=== PATIENT | female | born 1945 | race Caucasian/White ===

== ENCOUNTER 2023-10-15 16:50 | Inpatient (IN) | payer MEDICARE, SELFPAY ==
[2023-10-15 16:51] VITALS: BP 153/64; PULSE 82; RESP 16; TEMP 36.7; O2SAT 97; BMI 49.6
--- NOTE | 2023-10-15 17:08 | US_ITS ---
STUDY: ABDOMINAL ULTRASOUND - RIGHT UPPER QUADRANT REASON FOR VISIT: Female, 78 years old PAIN TECHNIQUE: Ultrasound evaluation of the right upper quadrant was performed with real-time and static loyola-scale imaging. TECHNICAL QUALITY: Limited. Examination limited by bowel gas. COMPARISON: None. FINDINGS: Liver: The liver measures 21.8 cm. There is increased echogenicity consistent with fatty infiltration. The bile ducts are within normal limits. There is hepatic color flow. The direction of portal flow is hepatopetal. There is no demonstrated mass lesion. Gallbladder: There is a markedly distended gallbladder. The gallbladder wall measures 5.1 mm. There is a positive sonographic Canela''s sign. There is no pericholecystic fluid. There is a solitary echogenic gallstone within the gallbladder. Common Bile Duct (C.B.D.): The common bile duct measures 5.0 mm. Pancreas: Normal size of the head and body with obscuration of the tail of the pancreas. There is normal echogenicity of the generalized pancreas. There is no demonstrated pancreatic mass or cyst in the visualized portion. Right Kidney: Normal size of the right kidney. The right kidney measures 12.3 x 6.5 x 5.2 cm. Normal renal cortex. The right cortex measures 1.4 cm. There is no demonstrated renal mass or cyst. There is no right hydronephrosis. US/Gallbladder IMPRESSION: Solitary gallstone with contracted gallbladder and thickening of the wall. Positive Canela sign. Acute cholecystitis cannot be excluded. If this represents a clinical concern, recommend follow-up with HIDA scan. Diffuse fatty liver, remainder of the right upper quadrant ultrasound unremarkable. Electronically Signed: Tracy Shearer MD at 19:54 EST ,
--- NOTE | 2023-10-15 17:09 | ED.VIS.GI ---
HPI HPI - GI History of Present Illness Chief Complaint: Fall Informant: patient and family Narrative Narrative: 5 days ago patient had an episode of lower midsternal chest discomfort with nausea that did not radiate anywhere or make her dyspneic that occurred an hour or so after eating homemade shrimp Jesus. She states the next day the pain was gone she felt she did not need to go to the ER because it did not radiate . Last night after eating a doughnut, some cookies, and a submarine sandwich, she had another episode of this discomfort, and overnight she got out of bed use the bathroom but fell to the floor because her legs were feeling weak and she was unable to get up partially because her legs were stuck underneath the bed, she denies injuring herself but was not able to get up and come here until her daughter came to get her and help, upon which her daughter noticed that she was jaundiced which is new. No history of any abdominal surgeries. She is not having pain right now. No fevers that she knows of. Generalized weakness started overnight. PFSH PFS Medical History Allergic rhinitis Anxiety and depression CKD (chronic kidney disease) Hyperlipidemia Hypertension Hypothyroidism Morbid obesity Type 2 diabetes mellitus Home Medications aspirin 81 mg tablet,delayed release (Adult Aspirin Regimen) 81 mg PO DAILY Blood thinner 10/15/23 [History Last Taken Unknown] atorvastatin 20 mg tablet 20 mg PO DAILY cholesterol 10/15/23 [History Last Taken Unknown] carvedilol 25 mg tablet 25 mg PO Q12H Blood pres 10/15/23 [History Last Taken Unknown] cetirizine 10 mg tablet 10 mg PO DAILY Allergies 10/15/23 [History Last Taken Unknown] cholestyramine-aspartame 4 gram oral powder for susp in a packet (Cholestyramine Light) 1 ea PO DAILY cholesterol 10/15/23 [History Last Taken Unknown] empagliflozin 25 mg tablet (Jardiance) 25 mg PO DAILY Glucose control 10/15/23 [History Last Taken Unknown] ergocalciferol (vitamin D2) 1,250 mcg (50,000 unit) capsule 1,250 mcg PO DAILY Vit D 10/15/23 [History Last Taken Unknown] escitalopram oxalate 20 mg tablet 20 mg PO DAILY Anxiety 10/15/23 [History Last Taken Unknown] fenofibrate nanocrystallized 145 mg tablet 145 mg PO DAILY cholesterol 10/15/23 [History Last Taken Unknown] levothyroxine 50 mcg tablet 50 mcg PO DAILY thyroid 10/15/23 [History Last Taken Unknown] mirabegron 25 mg tablet,extended release 24 hr (Myrbetriq) 25 mg PO Q24H Bladder 10/15/23 [History Last Taken Unknown] montelukast 10 mg tablet 10 mg PO DAILY Wheezing 10/15/23 [History Last Taken Unknown] niacin 1,000 mg tablet,extended release 24 hr 1,000 mg PO DAILY cholesterol 10/15/23 [History Last Taken Unknown] oxybutynin chloride 10 mg tablet,extended release 24 hr 10 mg PO DAILY Bladder 10/15/23 [History Last Taken Unknown] sitagliptin phosphate 50 mg-metformin 1,000 mg tablet (Janumet) 1 tab PO DAILY Glucose 10/15/23 [History Last Taken Unknown] Allergy/AdvReac Type Severity Reaction Status Date / Time No Known Allergies Allergy Verified 10/15/23 17:26 Family History (Updated 10/15/23 @ 20:[address] Enma Otoole MD) Mother Cancer Diabetes Father Heart disease Surgical History S/P left knee arthroscopy Social History (Updated 10/15/23 @ 20:[address] Enma Otoole MD) household members: none Smoking Status: Former smoker how long ago did patient quit smoking: Smoked age 22-until 30 years old, 1 ppd until quit. alcohol intake: never substance use type: does not use ROS ROS ED Constitutional Constitutional ED: Reports weakness; Denies chills or fever(s) Eyes Eyes: Denies change in vision or diplopia ENT ENT ED: Denies rhinorrhea or sore throat Cardiovascular Cardiovascular: Reports chest pain; Denies palpitations Respiratory/Chest Respiratory/Chest: Denies cough or dyspnea Gastrointestinal Gastrointestinal: Reports diarrhea, nausea and vomiting; Denies abdominal pain, hematemesis, hematochezia or melena Genitourinary Genitourinary ED: Denies dysuria or hematuria Musculoskeletal Musculoskeletal: Denies back pain or neck pain Integumentary Denies abscess or rash Neurologic Neurologic: Denies headache(s), paresthesias or weakness Psychiatric Psychiatric: Denies anxiety or suicidal thoughts EXAM Physical Exam Const Vital Signs: 10/15/23 16:51 10/15/23 17:07 10/15/23 20:00 Temperature 98.1 F 97.8 F Temperature Source Temporal Oral Pulse Rate 82 64 Respiratory Rate 16 16 Respiratory Effort Normal Respiratory Depth Normal Respiratory Pattern Normal Blood Pressure 153/64 H 128/68 H Blood Pressure Mean 93 88 Pulse Ox 97 97 Oxygen Delivery Method Room Air Room Air Room Air Positive well nourished, well developed and obese General Appearance ED: well developed and NAD Nutritional Appearance: obese HEENT Reports moist mucous membranes normocephalic and atraumatic Eyes PERRL and EOMs intact bilaterally General Eye ED: Yes scleral icterus Neck full ROM and supple Resp normal respiratory effort and clear to auscultation bilaterally Cardio regular rate, regular rhythm and no murmurs GI non-distended GI Narrative: Tender right upper quadrant. Otherwise benign abdomen. No guarding or rebound. Positive Canela. Auscultation: normoactive bowel sounds Palpation: soft Back/Spine no CVA tenderness General Back: other FROM Extremity normal to inspection General Extremety ED: Negative for edema, pulses abnormal or tenderness General Extremity: Negative for edema or pulses abnormal Neuro oriented x3, CN's II-XII intact bilaterally and no sensory deficits noted Sensorium / Orientation: awake and alert Motor Exam: strength 5/5 throughout Skin no rashes or lesions noted and no wounds General Skin Exam: jaundice MDM MDM MDM Narrative Medical decision making narrative: Given the patient is jaundiced my suspicion is that she has been having biliary colic and has stones and potentially biliary obstruction. I think this is less likely to be cardiac under the circumstances but obtained an EKG and a troponin in addition to a biliary workup with an ultrasound. EKG and troponin unremarkable, liver enzymes elevated along with total bilirubin extremely elevated at 12.5, as well as a leukocytosis of 20.1. I reviewed the images of the ultrasound and report which I agree with, consistent with acute cholecystitis with a large gallstone stuck. No other abnormalities in the liver on the ultrasound. Lipase is just barely elevated at 93. No urinary symptoms but the urinalysis shows pyuria so this was sent for culture. She was empirically given a dose of Zosyn and I discussed with GI and surgery. Surgery requested a CT scan with oral contrast since we are avoiding the IV contrast given her renal function, this was done, still waiting on the read, hospitalist aware this is being performed, but will admit in the meantime. Patient stable for admission to regular floor bed at this time. History & Record Review Additional record(s) reviewed:: No prior records Lab Data Attestation: I reviewed the patient's lab results. Labs: Laboratory Results - last 24 hr 10/15/23 10/15/23 17:20 19:34 WBC 20.1 H RBC 4.09 L Hgb 13.0 Hct 37.4 MCV 91.4 MCH 31.8 MCHC 34.8 RDW Std Deviation 48.5 H RDW Coeff of Jeff 14.3 Plt Count 128 L MPV 9.9 Immature Gran % (Auto) 0.800 Neut % (Auto) 83.6 H Lymph % (Auto) 5.3 L [place] % (Auto) 6.0 Eos % (Auto) 3.9 Baso % (Auto) 0.4 Absolute Neuts (auto) 16.8 H Absolute Lymphs (auto) 1.07 Nucleated RBC % 0 Sodium 129 L Potassium 3.3 L Chloride 97 L Carbon Dioxide 20.0 L Anion Gap 12 BUN 33 H Creatinine 1.43 H Estim Creat Clear Calc 45.05 Est GFR (MDRD) Af Amer 46 L Est GFR (MDRD) Non-Af 38 L BUN/Creatinine Ratio 23.1 H Glucose 158 H Calcium 9.3 Magnesium 1.4 L Total Bilirubin 12.50 H AST 209 H ALT 257 H Alkaline Phosphatase 306 H Troponin I High Sens 21 Total Protein 6.9 Albumin 2.7 L Globulin 4.2 Albumin/Globulin Ratio 0.6 L Lipase 93 H Urine Color Yellow Urine Clarity Clear Urine pH 6.5 Ur Specific [place] 1.005 Urine Protein 15 H Urine Glucose (UA) 1000 H Urine Ketones Negative Urine Occult Blood 10 H Urine Nitrite Negative Urine Bilirubin Negative Urine Urobilinogen Normal Ur Leukocyte Esterase 500 H Urine RBC 0 SEEN Urine WBC 10-25 SEEN Ur Squamous Epith Cells 0-5 SEEN Urine Bacteria RARE Urine Mucus 0 SEEN Radiography Diagnostic Testing: Clinical Impression(s) from Imaging Studies Gallbladder Ultrasound 10/15/23 17:08 IMPRESSION: Solitary gallstone with contracted gallbladder and thickening of the wall. Positive Canela sign. Acute cholecystitis cannot be excluded. If this represents a clinical concern, recommend follow-up with HIDA scan. Diffuse fatty liver, remainder of the right upper quadrant ultrasound unremarkable. Electronically Signed: Tracy Shearer MD at 19:54 EST , Rhythm Strip Rhythm Strip: Sinus Rhythm Rate: 80 Ectopy: None EKG Initial EKG: Attestation: I personally reviewed and interpreted this EKG as follows: Interpretation: Sinus Rhythm and No Acute Injury Pattern Prior: No Prior Management Discussion w/another healthcare provider: Hospitalist and Sample Supervisor (Friend (GI), Kirill (surg)) Discharge Plan Dx/Rx/DC Orders Clinical Impression: Elevated liver enzymes, Acute calculous cholecystitis, Acquired hyperbilirubinemia Disposition Disposition: Acute Care Hospital [facility] Discharge Date/Time: 10/15/23 21:21
[2023-10-15] MEDS: 0.9% Normal Saline (1000mL) 1,000 ML 125 ML IV ×2 (17:23→23:03)
[2023-10-15] MEDS: Ondansetron 4 MG/2 ML Vial IV (17:23)
[2023-10-15 17:34] LABS: Absolute Lymphocyte Count 1.07 X10^3/uL (0.83-4.51); Absolute Neutrophil Count 16.8 X10^3/uL (2.0-7.7); Basophil# 0.08 X10^3/uL; Basophil% 0.4 % (0-1); Eosinophil# 0.79 X10^3/uL; Eosinophils% 3.9 % (0-5); Hematocrit 37.4 % (37-47); Lymphocyte # 1.07 X10^3/ul (0.83-4.51); Lymphocyte % 5.3 % (19-41); Mean Corp Hgb Conc 34.8 g/dL (32-36); Mean Corpuscular Hgb 31.8 pg (27.0-32.0); Mean Corpuscular Volume 91.4 fL (81-99); Mean Platelet Vol. 9.9 fl (6.2-12.0); Monocyte# 1.21 X10^3/uL; NRBC Flagged by Analyzer 0 % (0-5); Neutrophil # 16.81 X10^3/uL (2.7-7.7); Neutrophil % 83.6 % (47-70); Platelet Count 128 K/mm3 (150-450); RBC Distribution Width CV 14.3 % (11.6-14.6); RBC Distribution Width SD 48.5 fl (35.1-43.9); Red Blood Count 4.09 M/mm3 (4.2-5.4); White Blood Count 20.1 K/mm3 (4.4-11.0)
[2023-10-15 17:51] LABS: ALB/GLOB Ratio 0.6 RATIO (0.9-2.4); AST(SGOT) 209 U/L (15-37); Alanine Aminotransfer ALT/SGPT 257 U/L (13-56); Albumin, Serum 2.7 g/dL (3.2-5.0); Alkaline Phosphatase 306 U/L (45-117); Anion Gap 12 (5-15); BUN 33 mg/dL (7-18); BUN/Creat Ratio 23.1 RATIO (10-20); Calcium,Total 9.3 mg/dL (8.5-10.1); Chloride 97 mmol/L (98-107); Creatinine, Serum 1.43 mg/dL (0.55-1.02); EST Glomerular Filtration Rate 38 mL/min (>60); Est Glom Filt Rate - Afr Amer 46 mL/min (>60); Estimated Creatinine Clearance 45.05 ml/min; Globulin 4.2 g/dL (2.2-4.2); Glucose 158 mg/dL (74-106); Lipase 93 U/L (13-75); Potassium 3.3 mmol/L (3.5-5.1); Protein, Total 6.9 g/dL (6.4-8.2); Sodium Level 129 mmol/L (136-145); Troponin-I HS 21 pg/mL (3.0-54.0)
--- NOTE | 2023-10-15 18:49 | EKG12_ITS ---
Test Reason : ABDOMINAL PAIN Blood Pressure : / mmHG Vent. Rate : 079 BPM Atrial Rate : 079 BPM P-R Int : 174 ms QRS Dur : 088 ms QT Int : 422 ms P-R-T Axes : 046 -17 010 degrees QTc Int : 483 ms Normal sinus rhythm Minimal voltage criteria for LVH, may be normal variant ( R in aVL ) Borderline ECG Confirmed by MAXI ROSA, STEVE ([id number]), assistant film editor AKUA LIZAMA ([id number]) on 10/17/2023 1:56:11 PM Referred By: BB Confirmed By:STEVE GERMAN MD
[2023-10-15] MEDS: Piperacil/Tazobactam 3.375 GM in 0.9% Normal Saline (50mL MB+) 50 ML IV (19:31)
[2023-10-15 19:39] LABS: Mucous, Urine 0 SEEN /hpf (<or=2+); Red Blood Cells-Urine 0 SEEN /hpf (0-5)
[2023-10-15 19:44] LABS: Color, Urine Yellow (Yellow); Glucose, Dipstick 1000 mg/dl (Normal); Ketone-Dipstick Negative (Negative); Leukocyte Esterase-Dipstick 500 /ul (Negative); Nitrite-Dipstick Negative (Negative); Occult Blood-Urine 10 /ul (Negative); Protein-Dipstick 15 mg/dl (Negative); Specific Gravity, Urine 1.005 (1.002-1.030); Urine Bilirubin Dipstick Negative (Negative); Urine Clarity Clear (Clear); Urine Urobilinogen Normal (Normal); Urine pH 6.5 (5.0 - 8.0)
[2023-10-15 19:55] LABS: White Blood Cells 10-25 SEEN /hpf (0-5)
[2023-10-15 19:56] LABS: Bacteria RARE /hpf (None Seen); Squamous Epithelial Cells - UA 0-5 SEEN /hpf (5-10)
[2023-10-15 20:00] VITALS: BP 128/68; PULSE 64; RESP 16; TEMP 36.6; O2SAT 97
--- NOTE | 2023-10-15 20:06 | HP.PCM.HOS_ITS ---
HPI - General General Date of Admission: 10/15/23 Date of Service: 10/15/23 Chief Complaint: Abdominal pain, nausea. 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: Morbid obesity, HTN, HLD, Diabetes mellitus type II, Former tobacco use who presents to the [facility] ED on 10/15/23 with history of episode of lower midsternal chest discomfort with nausea with no radiation that occurred approximately 5 days prior following eating a heavy meal shrimp Jesus with resolution of discomfort the next day however again the evening prior to current presentation she was noted to have eaten a large sandwich as well as some cookies and donuts and had a similar episode of discomfort and eventually overnight while attempting to get up to use the restroom she felt incredibly weak and fatigued unfortunately falling with her leg stuck underneath the bed but could not get up until her daughter was able to help her and upon helping her she noted that her skin was yellowed prompting ED evaluation. Patient denies any current pain in her right upper quadrant or epigastric region at this time. She currently notes the discomfort to her right upper quadrant and epigastric region is primary with palpation and rates it 5-6 out of 10 in severity or dull aching but with palpation sharp and can increase up to 8-9 out of 10 in severity. Workup in the ED included T98.1, heart rate 82, BP 153/64, respiratory rate 16, 97% on room air, CBC with WBC 20.1, hemoglobin 13, platelet 128 with left shift, CMP with sodium 129, potassium 3.3 noted to be slightly hemolyzed thus may be falsely increased, chloride 97, carbon oxide 20, BUN/creatinine 32/1.43, GFR 38, glucose 158, T. bili 12.50, AST/ALT 209/257, alk phos 306, troponin 21, lipase 93, gallbladder ultrasound with solitary gallstone with contracted gallbladder and thickening of the wall, positive Canela sign, acute cholecystitis cannot be excluded. In the ED patient ministered maintenance IV fluid, Zosyn as well as Zofran 4 mg IV x 1. [facility] Medical History (Updated 10/15/23 @ 20:[address] Enma Otoole MD) Allergic rhinitis Anxiety and depression CKD (chronic kidney disease) Hyperlipidemia Hypertension Hypothyroidism Morbid obesity Type 2 diabetes mellitus Home Medications atorvastatin 20 mg tablet mg 10/15/23 [History Last Taken Unknown] carvedilol 25 mg tablet mg 10/15/23 [History Last Taken Unknown] cetirizine 10 mg tablet mg 10/15/23 [History Last Taken Unknown] cholestyramine-aspartame 4 gram oral powder for susp in a packet (Cholestyramine Light) ea 10/15/23 [History Last Taken Unknown] empagliflozin 25 mg tablet (Jardiance) mg 10/15/23 [History Last Taken Unknown] ergocalciferol (vitamin D2) 1,250 mcg (50,000 unit) capsule 10/15/23 [History Last Taken Unknown] escitalopram oxalate 20 mg tablet mg 10/15/23 [History Last Taken Unknown] fenofibrate nanocrystallized 145 mg tablet mg PO 10/15/23 [History Last Taken Unknown] levothyroxine 50 mcg tablet mcg 10/15/23 [History Last Taken Unknown] mirabegron 25 mg tablet,extended release 24 hr (Myrbetriq) mg PO 10/15/23 [History Last Taken Unknown] montelukast 10 mg tablet mg 10/15/23 [History Last Taken Unknown] niacin 1,000 mg tablet,extended release 24 hr mg PO 10/15/23 [History Last Taken Unknown] oxybutynin chloride 10 mg tablet,extended release 24 hr mg PO 10/15/23 [History Last Taken Unknown] sitagliptin phosphate 50 mg-metformin 1,000 mg tablet (Janumet) tab 10/15/23 [History Last Taken Unknown] Allergy/AdvReac Type Severity Reaction Status Date / Time No Known Allergies Allergy Verified 10/15/23 17:26 Family History (Updated 10/15/23 @ 20:[address] Enma Otoole MD) Mother Cancer Diabetes Father Heart disease Surgical History (Updated 10/15/23 @ 20:[address] Enma Otoole MD) S/P left knee arthroscopy Social History (Updated 10/15/23 @ 20:[address] Enma Otoole MD) household members: none Smoking Status: Former smoker how long ago did patient quit smoking: Smoked age 22-until 30 years old, 1 ppd until quit. alcohol intake: never substance use type: does not use ROS ROS Narrative Admission Review of Systems: CONSTITUTIONAL: No weight loss, fever, chills, + weakness or fatigue. HEENT: + Scleral icterus. Eyes: No visual loss, blurred vision, double vision. Ears, Nose, Throat: No hearing loss, sneezing, congestion, runny nose or sore throat. SKIN: No rash or itching, lesions, wounds. + Jaundiced appearance. CARDIOVASCULAR: No chest pain, chest pressure or chest discomfort, palpitations, edema, orthopnea, syncopal events. RESPIRATORY: No shortness of breath, cough or sputum, wheezing, hemoptysis. GASTROINTESTINAL: + anorexia, nausea without vomiting, abdominal pain. No diarrhea, melena, BRBPR. GENITOURINARY: No dysuria, frequency, urgency or retention. NEUROLOGICAL: No headache, dizziness, syncope, paralysis, ataxia, numbness or tingling in the extremities, focal weakness, change in bowel or bladder control, seizure. MUSCULOSKELETAL: + muscle, back pain, joint pain or stiffness. HEMATOLOGIC: No anemia, bleeding or bruising. LYMPHATICS: No enlarged nodes. No history of splenectomy. PSYCHIATRIC: + History of anxiety and depression. ENDOCRINOLOGIC: No reports of sweating, cold or heat intolerance. No polyuria or polydipsia. ALLERGIES: + History of allergic rhinitis. Vital Signs Vital Signs Vital Signs: 10/15/23 16:51 10/15/23 17:07 Temperature 98.1 F Temperature Source Temporal Pulse Rate 82 Respiratory Rate 16 Respiratory Effort Normal Respiratory Depth Normal Respiratory Pattern Normal Blood Pressure 153/64 H Blood Pressure Mean 93 Pulse Ox 97 Oxygen Delivery Method Room Air Room Air Weight Weight: 289 lb Body Mass Index (BMI) 49.6 Physical Exam Narrative Physical Examination: General: Awake, alert, oriented x 3 and cooperative, seated upright in the ED bed in no apparent distress, fatigued appearance, notes pain currently controlled, jaundiced. Skin: Jaundiced color with scleral icterus present, normal turgor, no cyanosis. HEENT: AT/NC, EOMI, PERRLA, dry MM, no carotid bruits, difficult to assess JVD given thickened neck. Lungs: CTA bilaterally, moderate effort, mild decrease BL bases, no rales, ronchi or wheezing. Heart: Regular rate and rhythm; no gallop, rub audible. Abdomen: Soft, morbidly obese, tenderness to palpation in the epigastric and right upper quadrant with rebound, mildly hyperactive BS, difficult to discern distention and HSM given pain with evaluation and habitus. Extremities: No cyanosis, clubbing, or edema. Neurological: Patient awake, alert, oriented as noted, cognitive function intact; pupils equally reactive to light and accommodation, cranial nerves II- XII grossly normal, moving all 4 extremities, no focal deficits, strength moderately to severely globally decreased secondary to acute presentation. Psychiatric: Affect appears fatigued, mildly uncomfortable, no acute evidence of depressive or anxiety feelings but does have underlying history. Results Lab / Micro Data 10/15/23 17:20 10/15/23 17:20 Labs: Laboratory Results - last 24 hr 10/15/23 17:20: WBC 20.1 H, RBC 4.09 L, Hgb 13.0, Hct 37.4, MCV 91.4, MCH 31.8, MCHC 34.8, RDW Std Deviation 48.5 H, RDW Coeff of Jeff 14.3, Plt Count 128 L, MPV 9.9, Immature Gran % (Auto) 0.800, Neut % (Auto) 83.6 H, Lymph % (Auto) 5.3 L, [place] % (Auto) 6.0, Eos % (Auto) 3.9, Baso % (Auto) 0.4, Absolute Neuts (auto) 16.8 H, Absolute Lymphs (auto) 1.07, Nucleated RBC % 0, Sodium 129 L, Potassium 3.3 L, Chloride 97 L, Carbon Dioxide 20.0 L, Anion Gap 12, BUN 33 H, Creatinine 1.43 H, Estim Creat Clear Calc 45.05, Est GFR (MDRD) Af Amer 46 L, Est GFR (MDRD) Non-Af 38 L, BUN/Creatinine Ratio 23.1 H, Glucose 158 H, Calcium 9.3, Total Bilirubin 12.50 H, AST 209 H, ALT 257 H, Alkaline Phosphatase 306 H, Troponin I High Sens 21, Total Protein 6.9, Albumin 2.7 L, Globulin 4.2, [place] min/Globulin Ratio 0.6 L, Lipase 93 H 10/15/23 19:34: Urine Color Yellow, Urine Clarity Clear, Urine pH 6.5, Ur Specific [place] 1.005, Urine Protein 15 H, Urine Glucose (UA) 1000 H, Urine Ketones Negative, Urine Occult Blood 10 H, Urine Nitrite Negative, Urine Bilirubin Negative, Urine Urobilinogen Normal, Ur Leukocyte Esterase 500 H, Urine RBC 0 SEEN, Urine WBC 10-25 SEEN, Ur Squamous Epith Cells 0-5 SEEN, Urine Bacteria RARE, Urine Mucus 0 SEEN Rhythm Strip Rhythm Strip: Sinus Rhythm Rate: 80 Ectopy: None Imagaing Radiology Impression Gallbladder Ultrasound 10/15/23 17:08 IMPRESSION: Solitary gallstone with contracted gallbladder and thickening of the wall. Positive Canela sign. Acute cholecystitis cannot be excluded. If this represents a clinical concern, recommend follow-up with HIDA scan. Diffuse fatty liver, remainder of the right upper quadrant ultrasound unremarkable. Electronically Signed: Tracy Shearer MD at 19:54 EST , Assessment & Plan Assessment/Plan (1) Acute calculous cholecystitis: PLAN: Plan The 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 78 y/o F w/ PMHx: Morbid obesity, HTN, HLD, Diabetes mellitus type II, Former tobacco use who presents to the [facility] ED on 10/15/23 with history of episode of lower midsternal chest discomfort with nausea with no radiation that occurred approximately 5 days prior following eating a heavy meal shrimp Jesus with resolution of discomfort the next day however again the evening prior to current presentation she was noted to have eaten a large sandwich as well as some cookies and donuts and had a similar episode of discomfort and eventually overnight while attempting to get up to use the restroom she felt incredibly weak and fatigued unfortunately falling with her leg stuck underneath the bed but could not get up until her daughter was able to help her and upon helping her she noted that her skin was yellowed prompting ED evaluation. #1. Acute cholecystitis with ? choledocholithiasis with notable jaundice with hyperbilirubinemia and transaminitis, abdominal pain: Will admit to MS, maintain on IVFs, NPO, PPI, IV/po pain control, trend CMP, maintain on IV Zosyn therapy, continue judicious IV fluids, continue General surgery and gastroenterology consultations. #2. Hyponatremia, acute, suspected hypovolemic, secondary to acute presentation as noted #1: Admission Na 129, Chl 97, will continue to judiciously hydrate and plan repeat CMP in AM. #3. Hypokalemia: Admission K+ 3.3, magnesium level requested, supplementation given, repeat level in AM. #4. CKD stage III unclear subtype versus Acute Renal Insufficiency versus DAYLIN, unable to determine as no prior renal function comparison: Admission BUN/creatinine 33/1.43, do suspect given underlying history of likely chronic kidney disease stage III however unable to absolutely say this and cannot say that patient has renal insufficiency or DAYLIN thus we will continue to hydrate and repeat CMP in AM which will help further elucidate patient baseline renal function. #5. Diabetes mellitus type II: Hold oral home regimen, NPO status given presentation as noted, q 6 hour accu checks w/ ISS. #6. Hypertension: Continue home regimen including Coreg 25 mg p.o. twice daily, Lasix 20 mg p.o. daily, PRN hydralazine. #7. Hyperlipidemia: Will hold statin and fenofibrate therapy given significant transaminitis and hyperbilirubinemia. #8. Allergic rhinitis: We will continue patient home cetirizine 10 mg p.o. every morning and montelukast 10 mg daily #9. Anxiety and depression: Given significant hyperbilirubinemia and transaminitis. Patient home escitalopram regimen. #10. Hypothyroidism: We will continue patient home levothyroxine 50 mcg daily #11. Morbid Obesity: Weight loss and lifestyle changes encouraged. #12. DVT prophylaxis: SCDs, hold chemoprophylaxis for operative intervention needs. #13. CODE status: Patient ELIJAH is her daughter Analy who is present and living will is currently in place. Discussed CODE status at length including dif ference between FULL code, DNR-CCA and DNR-CC status. Following discussions about the differences in these status, requested Full Code status. Advanced Care Planning Face to Face Time: 16 minutes. Charges/Coding Visit Charges Inpatient E&M: 54718 Init Hosp L3 Procedures Hospitalists Procedures: 20738 Advncd Care Plan 30 Min
--- NOTE | 2023-10-15 20:10 | CT_ITS ---
INDICATION: upper abd pain, n/v, hyperbilirubinemia EXAMINATION: CT Abdomen And Pelvis W/O Contrast Injection TECHNIQUE: Helically acquired images were obtained of the abdomen and pelvis with sagittal and coronal reconstructed images. Individualized dose optimization techniques were used for this CT. IV contrast dosage and agent: None. Oral contrast: Small amount of contrast seen in the distal small bowel and proximal colon. COMPARISON: Ultrasound from earlier same day. FINDINGS: VESSELS: No abdominal aortic aneurysm. LIVER: No intrahepatic or extrahepatic biliary duct dilation. GALLBLADDER: Gallstones within a contracted gallbladder. PANCREAS: No focal solid or cystic mass. No evidence of pancreatitis. SPLEEN: Normal. ADRENAL GLANDS: Normal. KIDNEYS AND URETERS: No urinary tract stone. No hydronephrosis or hydroureter. No significant asymmetric perinephric stranding. URINARY BLADDER: Unremarkable. BOWEL: Diverticulosis with no evidence of diverticulitis. Appendix appears normal. No evidence of bowel obstruction. REPRODUCTIVE ORGANS: Unremarkable. PERITONEUM: No intraabdominal free fluid or free air. LYMPH NODES: No pathologically enlarged mesenteric or retroperitoneal lymph nodes. ABDOMINAL WALL: No abdominal or pelvic wall hernia. BONES: No acute abnormality. LOWER CHEST: Visualized lung bases are unremarkable. CT/Abdomen/Pel W ORAL Cont Only IMPRESSION: No acute abnormality. Electronically Signed: Jhonatan Robledo DO at 23:05 EST ,
--- OUTSIDE RECORDS SUMMARY | 2023-10-15 20:32 | XMS RPT_ITS | CCD ---
Author Name Unknown Address [facility] [place] [address] Organization [facility] Care Team Providers Care Cleaning Matron Name Role Phone CADEN SAUCEDA (DAWN) Unavailable Unavailab CADEN Yoo (DAWN) Unavailable Unavailab MARISA Ahumada Referring Unavailable GISELA LIM Referring Unavailable MARISA BOWDEN Referring Unavailable MARISA BOWDEN Referring Unavailable Problems Active Problems Problem Classification Problem Date Documented Da te Episodic/Chronic Chronic kidney disease (1 source) Chronic kidney disease; Translations: [Chronic kidney disease (CKD) stage G3a/A1, moderately decreased glomerular filtration rate (GFR) between 45-59 mL/min/1.73 square meter and albuminuria creatinine ratio less than 30 mg/g (HCC)] Onset: 01-11-2023 Diabetes mellitus with complications (3 sources) Type 2 diabetes mellitus with diabetic neuropathy, unspecified; Translations: [Type 2 diabetes mellitus with diabetic chronic kidney disease] Onset: 01-11-2023 Chronic Disorders of lipid metabolism (2 sources) Hyperlipidemia, unspecified; Translations: [Mixed hyperlipidemia] Onset: 01-11-2023 Chronic Essential hypertension (2 sources) Essential (primary) hypertension; Translations: [Unspecified essential hypertension] Onset: 01-11-2023 Chronic Nutritional deficiencies (2 sources) Vitamin D deficiency, unspecified; Translations: [Vitamin D deficiency] Onset: 01-11-2023 Chronic Other ear and sense organ disorders (1 source) Conductive hearing loss, unilateral, left ear, with unrestricted hearing on the contralateral side; Translations: [Conductive hearing loss, unilateral, left ear, with unrestricted hearing on the contralateral side] Onset: 08-29-2017 Chronic Other gastrointestinal disorders (1 source) Diarrhea, unspecified; Translations: [Diarrhea of presumed infectious origin] Onset: 09-09-2023 Episodic Other inflammatory condition of skin (1 source) Arthropathic psoriasis, unspecified; Translations: [Psoriatic arthropathy (HCC)] Onset: 06-13-2023 Chronic Other inflammatory condition of skin (1 source) Psoriasis vulgaris; Translations: [Psoriasis vulgaris] Onset: 01-11-2023 Chronic Other lower respiratory disease (1 source) Dyspnea, unspecified; Translations: [Dyspnea, unspecified] Onset: 06-17-2023 Episodic Thyroid disorders (1 source) Hypothyroidism, unspecified; Translations: [Unspecified hypothyroidism] Onset: 06-13-2023 Chronic Past or Other Problems Problem Classification Problem Date Documented Da te Episodic/Chronic Unclassified (1 source) Encounter for screening for other disorder; Translations: [Encounter for screening for other disorder] Onset: 08-29-2017 Episodic Results Test Name Value Interpretation Reference Range Facil ity Encounters Encounter Date Encounter Type Care Provider Facility Start: 09-09-2023 End: 09-09-2023 ambulatory MARISA L DENNISE Facility:[id number] Start: 06-17-2023 End: 06-17-2023 ambulatory GISELA Sirena CARINA Facility:[id number] Start: 06-13-2023 End: 06-13-2023 ambulatory MARISA Bravo DENNISE Facility:[id number] Start: 01-11-2023 End: 01-12-2023 ambulatory MARISAALBERTO BOWDEN Facility:[id number] Start: 10-24-2017 End: 10-25-2017 [facility] Start: 08-29-2017 End: 09-02-2017 Ambulatory CADEN WETZEL) [facility] Payers Date Payer Category Payer Medicare [id number] Summary Purpose Family History No Family History Records FoundNo Family History Records FoundNo Family History Records Found Advance Directives No Advanced Directives Records FoundNo Advanced Directives Records FoundNo Advanced Directives Records Found Additional Source Comments INFORMATION SOURCE (unrecogn ized section and content) DATE CREATED AUTHOR AUTHOR'S ORGANIZ ATION 11/18/2021 [facility] [place] DATE CREATED AUTHOR AUTHOR'S ORGANIZ ATION [facility] FOR RECORDS PERTAINING TO PATIENTS WHO ARE OR HAVE BEEN ENROLLED IN A CHEMICAL DEPENDENCY/SUBSTANCEABUSE PROGRAM, SOME INFORMATION MAY BE OMITTED. This clinical summary was aggregated from multiple sources. Caution should be exercised in using it in the provision of clinical care. This summary normalizes information from multiple sources, and as a consequence, information in this document may materially change the coding, format and clinical context of patient data. In addition, data may be omitted in some cases. CLINICAL DECISIONS SHOULD BE BASED ON THE PRIMARY CLINICAL RECORDS. [employer] [facility]. provides no warranty or guarantee of the accuracy or completeness of information in this document.
[2023-10-15 20:54] LABS: Magnesium 1.4 mg/dL (1.6-2.6)
[2023-10-15 21:36] VITALS: BMI 45.7
[2023-10-15 21:51] VITALS: BP 131/67; PULSE 81; RESP 18; TEMP 36.7; O2SAT 95
[2023-10-15 22:00] VITALS: O2SAT 96
[2023-10-15] MEDS: Potassium Chloride Oral Tablet 20 MEQ 40 MEQ PO (23:01)
[2023-10-15] MEDS: Pantoprazole Sodium 40 MG in 0.9% Normal Saline (100mL MB+) 100 ML 330 MG IV (23:01)
[2023-10-15] MEDS: Carvedilol 25 MG Tablet PO (23:02)
[2023-10-15] MEDS: Montelukast 10 MG Tablet PO (23:03)
[2023-10-15 23:11] VITALS: O2SAT 96
[2023-10-15 23:35] LABS: Bedside Glucose 119 mg/dL (74-106)
[2023-10-16 03:24] VITALS: BMI 45.5
[2023-10-16] MEDS: Miconazole Nitrate 43 GM Bottle 1 APPLIC TOPICAL ×3 (06:24→21:48)
[2023-10-16] MEDS: Piperacil/Tazobactam 3.375 GM in 0.9% Normal Saline (50mL MB+) 50 ML IV ×3 (06:24→21:47)
[2023-10-16] MEDS: Levothyroxine 50 MCG Tablet PO (06:24)
[2023-10-16 06:32] VITALS: BP 131/63; PULSE 80; RESP 16; TEMP 36.9; O2SAT 96
[2023-10-16 06:47] LABS: Bedside Glucose 119 mg/dL (74-106)
[2023-10-16 07:02] LABS: Absolute Lymphocyte Count 1.13 X10^3/uL (0.83-4.51); Absolute Neutrophil Count 11.6 X10^3/uL (2.0-7.7); Basophil# 0.08 X10^3/uL; Basophil% 0.5 % (0-1); Hematocrit 35.9 % (37-47); Lymphocyte # 1.13 X10^3/ul (0.83-4.51); Lymphocyte % 7.6 % (19-41); Mean Corp Hgb Conc 33.4 g/dL (32-36); Mean Corpuscular Hgb 31.1 pg (27.0-32.0); Monocyte% 6.7 % (0-10); NRBC Flagged by Analyzer 0 % (0-5); Neutrophil # 11.57 X10^3/uL (2.7-7.7); Neutrophil % 77.9 % (47-70); Platelet Count 139 K/mm3 (150-450); RBC Distribution Width CV 14.6 % (11.6-14.6); RBC Distribution Width SD 49.7 fl (35.1-43.9); Red Blood Count 3.86 M/mm3 (4.2-5.4); White Blood Count 14.9 K/mm3 (4.4-11.0)
--- NOTE | 2023-10-16 07:36 | PN.HOSP_ITS ---
Reason for Visit Reason for Visit: Diagnoses Calculus of gallbladder with acute cholecystitis without obstruction (10/15/23) Subjective Subjective Patient is a 78-year-old lady admitted with abdominal pain gallbladder ultrasound obtained did show Solitary gallstone with contracted gallbladder and thickening of the wall. Positive Canela sign. Acute cholecystitis could not be excluded patient admitted to regular nursing floor with consultation placed to general surgery as well as GI Objective Data Objective Data Vital Signs: Vital Signs Temp Pulse Resp BP Pulse Ox O2 Del Method 98.5 F 80 16 131/63 H 96 Bi-pap 10/16/23 06:32 10/16/23 06:32 10/16/23 06:32 10/16/23 06:32 10/16/23 06:32 10/16/23 06:33 Oxygen Delivery Method Bi-pap Weight: 120.9 kg Body Mass Index (BMI) 45.5 Intake & Output: Intake and Output for Last 24 Hours 10/14/23 10/15/23 10/16/23 23:59 23:59 23:59 Intake Total 868.33 / 868.33 Balance 868.33 / 868.33 Lab / Micro Data 10/16/23 06:20 10/16/23 06:20 Labs: Laboratory Results - last 24 hr 10/15/23 17:20: WBC 20.1 H, RBC 4.09 L, Hgb 13.0, Hct 37.4, MCV 91.4, MCH 31.8, MCHC 34.8, RDW Std Deviation 48.5 H, RDW Coeff of Jeff 14.3, Plt Count 128 L, MPV 9.9, Immature Gran % (Auto) 0.800, Neut % (Auto) 83.6 H, Lymph % (Auto) 5.3 L, [place] % (Auto) 6.0, Eos % (Auto) 3.9, Baso % (Auto) 0.4, Absolute Neuts (auto) 16.8 H, Absolute Lymphs (auto) 1.07, Nucleated RBC % 0, Sodium 129 L, Potassium 3.3 L, Chloride 97 L, Carbon Dioxide 20.0 L, Anion Gap 12, BUN 33 H, Creatinine 1.43 H, Estim Creat Clear Calc 45.05, Est GFR (MDRD) Af Amer 46 L, Est GFR (MDRD) Non-Af 38 L, BUN/Creatinine Ratio 23.1 H, Glucose 158 H, Calcium 9.3, Magnesium 1.4 L, Total Bilirubin 12.50 H, AST 209 H, ALT 257 H, Alkaline Phosphatase 306 H, Troponin I High Sens 21, Total Protein 6.9, Albumin 2.7 L, Globulin 4.2, Albumin/Globulin Ratio 0.6 L, Lipase 93 H 10/15/23 19:34: Urine Color Yellow, Urine Clarity Clear, Urine pH 6.5, Ur Specific [place] 1.005, Urine Protein 15 H, Urine Glucose (UA) 1000 H, Urine Ketones Negative, Urine Occult Blood 10 H, Urine Nitrite Negative, Urine Bilirubin Negative, Urine Urobilinogen Normal, Ur Leukocyte Esterase 500 H, Urine RBC 0 SEEN, Urine WBC 10-25 SEEN, Ur Squamous Epith Cells 0-5 SEEN, Urine Bacteria RARE, Urine Mucus 0 SEEN 10/15/23 23:10: POC Glucose 119 H 10/16/23 06:20: WBC 14.9 H, RBC 3.86 L, Hgb 12.0, Hct 35.9 L, MCV 93.0, MCH 31.1, MCHC 33.4, RDW Std Deviation 49.7 H, RDW Coeff of Jeff 14.6, Plt Count 139 L, MPV 10.0, Immature Gran % (Auto) 1.300 H, Neut % (Auto) 77.9 H, Lymph % ( Auto) 7.6 L, [place] % (Auto) 6.7, Eos % (Auto) 6.0 H, Baso % (Auto) 0.5, Absolute Neuts (auto) 11.6 H, Absolute Lymphs (auto) 1.13, Nucleated RBC % 0 10/16/23 06:23: POC Glucose 119 H Radiography Diagnostic Testing: Radiology Impression Gallbladder Ultrasound 10/15/23 17:08 IMPRESSION: Solitary gallstone with contracted gallbladder and thickening of the wall. Positive Canela sign. Acute cholecystitis cannot be excluded. If this represents a clinical concern, recommend follow-up with HIDA scan. Diffuse fatty liver, remainder of the right upper quadrant ultrasound unremarkable. Electronically Signed: Tracy Shearer MD at 19:54 EST , Abdomen CT 10/15/23 20:10 IMPRESSION: No acute abnormality. Electronically Signed: Jhonatan Robledo DO at 23:05 EST , Rhythm Strip Rhythm Strip: Sinus Rhythm Rate: 80 Ectopy: None Physical Exam Narrative GENERAL: cooperative HEENT: Atraumatic; normocephalic EYES; Anicteric, Normal Conjunctiva NECK; supple, normal thyroid, RESPIRATORY: Diminished to auscultation CARDIOVASCULAR: Regular S1 S2, GI: Right upper quadrant abdominal tenderness : No Renal angle tenderness; EXTREMITIES: No edema, no clubbing, MUSCULOSKELETAL: no muscle wasting NEURO: Awake; no lateralizing signs. SKIN: No Rash PSYCH; Flat affect Assessment & Plan Assessment/Plan (1) Acute calculous cholecystitis: PLAN: Plan Patient is a 78-year-old lady admitted with abdominal pain gallbladder ultrasound obtained did show Solitary gallstone with contracted gallbladder and thickening of the wall. Positive Canela sign. Acute cholecystitis could not be excluded patient admitted to regular nursing floor with consultation placed to general surgery as well as GI 1. Right upper quadrant abdominal pain ?? Cholelithiasis with acute cholecystitis ? Patient admitted to regular nursing floor for symptom management as part of her evaluation consult was placed to general surgery as well as GI. Decision for patient to undergo HIDA scan deferred to general surgery. 2. Nonalcoholic fatty liver disease ? GI consulted 3. Diabetes mellitus type II -patient's oral hypoglycemics held. Placed on long acting insulin, Accu-Cheks a.c. and at bedtime and covered with sliding scale insulin 4. Dyslipidemia -Patient is on statin therapy as well as fenofibrate, continued at home dose 5. Class III obesity with BMI of 45.8 ? Complicating care weight loss advised 6. Hypothyroidism - Patient is on levothyroxine home dose continued 7. Hypertension - Blood pressure controlled, home medications continued with dose adjustment as needed 8. Overactive bladder ? Patient is on Myrbetriq as well as oxybutynin at home 9. Hypokalemia ? Corrected per protocol repeat labs ordered for monitoring next 10. Depression with anxiety ? Patient is on escitalopram did continue 11. Allergic rhinitis ? Patient is on cetirizine 12. DVT prophylaxis ? Bilateral SCDs and SC heparin Time spent in the patient's overall evaluation,decision-making process, review of diagnostic data, adjustment of management, discussion with other providers, nursing nursing and ancillary staff involved in patient's care documentation, 50 minutes Charges/Coding Visit Charges Inpatient E&M: 72529 Subs Hosp L3
[2023-10-16 08:00] VITALS: BP 146/70; PULSE 76; RESP 18; TEMP 36.4; O2SAT 95
--- NOTE | 2023-10-16 08:04 | EX.PCM.CON.S ---
Assessment & Plan Assessment/Plan (1) Acute calculous cholecystitis: (2) Acquired hyperbilirubinemia: (3) Elevated liver enzymes: PLAN: Plan Patient is a 78-year-old female who presents for acute onset abdominal pain with associated prodromal period of similar symptoms and some more subacute symptoms of fatigue and abnormal bowel movements. While she is markedly tender in the right upper quadrant over her gallbladder I find it unusual to have acute cholecystitis with such a high bilirubin. This is especially unusual given her nondilated common bile duct on either ultrasound or CT imaging. Although patient had a rather acute experience of pain, her reports of generally feeling unwell and this unusual presentation raise the possibility for potential more insidious etiology such as a neoplasm. It is also possible that her large gallbladder neck gallstone could be contributing Mirizzi?type compression of the common hepatic/common bile duct system, but the size of the stone is not terribly exceptional. Case has been discussed with with gastroenterology who is still yet to evaluate the patient. Preliminarily we are just discussing potential for MRCP. In the interim recommend n.p.o., IV fluids, empiric IV antibiotic coverage to mitigate patient's risk for cholangitis, and trending of her comprehensive metabolic panel. HPI Consult Data Date of Consult: 10/16/23 HPI Narrative Reason for Consultation: Concern for acute cholecystitis HPI Narrative: STEPHANIE MCKEON, is a 78 F who presented to [facility] after she had been found down at her home. Her daughter who accompanies her in her room provides much of the history. She shares that they celebrated patient's birthday on , 10/13/2021 and she states that patient was in good spirits overall feeling well at that time. They do share that they enjoyed vegetables, [employer], cookie cake, and donuts for their meal. Then approximately 2 AM the following morning patient reports she developed severe pain and tried to get out of bed but slid down to the floor. She was finally discovered by her daughter 30 hours later and brought in for further evaluation. Patient states that she was convinced this was noncardiac pain as although it was chest pain it felt worse with deep breathing. Patient's ER workup was notable for elevated liver function testing and markedly elevated bilirubin (greater than 12). Initially emergency medicine had performed only right upper quadrant ultrasound which showed a contracted gallbladder with a large gallstone in the gallbladder neck. There was some gallbladder wall thickening and radiology noted that cute cholecystitis could not be excluded. Upon noting patient's markedly elevated bilirubin and the otherwise limited information from her ultrasound I recommended performing CT of the abdomen pelvis with oral contrast (as patient had elevated creatinine on presentation). Patient and her daughter confirm that there is a prior episode of pain approximately 6 days ago after some [employer] for dinner. However, this was self-limited and patient seemed fine thereafter. They also confirmed that Mrs. Mckeon has been generally feeling poorly . By this they detail what to say that she has been more tired and has had a poor appetite. She is also noted some diarrhea. Her primary care provider ordered a stool assay and she was determined to be negative for C. difficile but positive for another infectious concern and was a started on antibiotics. She is also scheduled to see a ophthalmic tech but canceled on the account of her symptoms. Through this. If feeling poorly Mrs. Mckeon reports a weight loss of approximately 23 pounds. Patient medically has a history of hypertension, hyperlipidemia, morbid obesity, obstructive sleep apnea on CPAP, well-controlled diabetes (she states that her last A1c was 7) and chronic kidney disease stage III. She has not ever undergone a surgery. [facility] Medical History Allergic rhinitis Anxiety and depression CKD (chronic kidney disease) Hyperlipidemia Hypertension Hypothyroidism Morbid obesity Type 2 diabetes mellitus Home Medications aspirin 81 mg tablet,delayed release (Adult Aspirin Regimen) 81 mg PO DAILY Blood thinner 10/15/23 [History Last Taken Unknown] atorvastatin 20 mg tablet 20 mg PO DAILY cholesterol 10/15/23 [History Last Taken Unknown] carvedilol 25 mg tablet 25 mg PO Q12H Blood pres 10/15/23 [History Last Taken Unknown] cetirizine 10 mg tablet 10 mg PO DAILY Allergies 10/15/23 [History Last Taken Unknown] cholestyramine-aspartame 4 gram oral powder for susp in a packet (Cholestyramine Light) 1 ea PO DAILY cholesterol 10/15/23 [History Last Taken Unknown] empagliflozin 25 mg tablet (Jardiance) 25 mg PO DAILY Glucose control 10/15/23 [History Last Taken Unknown] ergocalciferol (vitamin D2) 1,250 mcg (50,000 unit) capsule 1,250 mcg PO DAILY Vit D 10/15/23 [History Last Taken Unknown] escitalopram oxalate 20 mg tablet 20 mg PO DAILY Anxiety 10/15/23 [History Last Taken Unknown] fenofibrate nanocrystallized 145 mg tablet 145 mg PO DAILY cholesterol 10/15/23 [History Last Taken Unknown] levothyroxine 50 mcg tablet 50 mcg PO DAILY thyroid 10/15/23 [History Last Taken Unknown] mirabegron 25 mg tablet,extended release 24 hr (Myrbetriq) 25 mg PO Q24H Bladder 10/15/23 [History Last Taken Unknown] montelukast 10 mg tablet 10 mg PO DAILY Wheezing 10/15/23 [History Last Taken Unknown] niacin 1,000 mg tablet,extended release 24 hr 1,000 mg PO DAILY cholesterol 10/15/23 [History Last Taken Unknown] oxybutynin chloride 10 mg tablet,extended release 24 hr 10 mg PO DAILY Bladder 10/15/23 [History Last Taken Unknown] sitagliptin phosphate 50 mg-metformin 1,000 mg tablet (Janumet) 1 tab PO DAILY Glucose 10/15/23 [History Last Taken Unknown] Allergy/AdvReac Type Severity Reaction Status Date / Time No Known Allergies Allergy Verified 10/15/23 17:26 Family History (Updated 10/15/23 @ 20:[address] Enma Otoole MD) Mother Cancer Diabetes Father Heart disease Surgical History S/P left knee arthroscopy Social History (Updated 10/15/23 @ 20:[address] Enma Otoole MD) household members: none Smoking Status: Former smoker how long ago did patient quit smoking: Smoked age 22-until 30 years old, 1 ppd until quit. alcohol intake: never substance use type: does not use Physical Exam Const alert, oriented x3 and well nourished Constitutional Narrative: Jaundiced General Appearance: cooperative Nutritional Appearance: obese morbidly obese GI GI Narrative: Morbidly obese, no scars, no visible hernia, nondistended, soft, tender to palpation right upper quadrant with mildly positive Canela sign Lab / Micro Data 10/16/23 06:20 10/16/23 06:20 Labs: Laboratory Results - last 24 hr 10/15/23 17:20: WBC 20.1 H, RBC 4.09 L, Hgb 13.0, Hct 37.4, MCV 91.4, MCH 31.8, MCHC 34.8, RDW Std Deviation 48.5 H, RDW Coeff of Jeff 14.3, Plt Count 128 L, MPV 9.9, Immature Gran % (Auto) 0.800, Neut % (Auto) 83.6 H, Lymph % (Auto) 5.3 L, [place] % (Auto) 6.0, Eos % (Auto) 3.9, Baso % (Auto) 0.4, Absolute Neuts (auto) 16.8 H, Absolute Lymphs (auto) 1.07, Nucleated RBC % 0, Sodium 129 L, Potassium 3.3 L, Chloride 97 L, Carbon Dioxide 20.0 L, Anion Gap 12, BUN 33 H, Creatinine 1.43 H, Estim Creat Clear Calc 45.05, Est GFR (MDRD) Af Amer 46 L, Est GFR (MDRD) Non-Af 38 L, BUN/Creatinine Ratio 23.1 H, Glucose 158 H, Calcium 9.3, Magnesium 1.4 L, Total Bilirubin 12.50 H, AST 209 H, ALT 257 H, Alkaline Phosphatase 306 H, Troponin I High Sens 21, Total Protein 6.9, Albumin 2.7 L, Globulin 4.2, Albumin/Globulin Ratio 0.6 L, Lipase 93 H 10/15/23 19:34: Urine Color Yellow, Urine Clarity Clear, Urine pH 6.5, Ur Specific [place] 1.005, Urine Protein 15 H, Urine Glucose (UA) 1000 H, Urine Ketones Negative, Urine Occult Blood 10 H, Urine Nitrite Negative, Urine Bilirubin Negative, Urine Urobilinogen Normal, Ur Leukocyte Esterase 500 H, Urine RBC 0 SEEN, Urine WBC 10-25 SEEN, Ur Squamous Epith Cells 0-5 SEEN, Urine Bacteria RARE, Urine Mucus 0 SEEN 10/15/23 23:10: POC Glucose 119 H 10/16/23 06:20: WBC 14.9 H, RBC 3.86 L, Hgb 12.0, Hct 35.9 L, MCV 93.0, MCH 31.1, MCHC 33.4, RDW Std Deviation 49.7 H, RDW Coeff of Jeff 14.6, Plt Count 139 L, MPV 10.0, Immature Gran % (Auto) 1.300 H, Neut % (Auto) 77.9 H, Lymph % (Auto) 7.6 L, [place] % (Auto) 6.7, Eos % (Auto) 6.0 H, Baso % (Auto) 0.5, Absolute Neuts (auto) 11.6 H, Absolute Lymphs (auto) 1.13, Nucleated RBC % 0 10/16/23 06:23: POC Glucose 119 H Rhythm Strip Rhythm Strip: Sinus Rhythm Rate: 80 Ectopy: None Imagaing Radiology Impression Gallbladder Ultrasound 10/15/23 17:08 IMPRESSION: Solitary gallstone with contracted gallbladder and thickening of the wall. Positive Canela sign. Acute cholecystitis cannot be excluded. If this represents a clinical concern, recommend follow-up with HIDA scan. Diffuse fatty liver, remainder of the right upper quadrant ultrasound unremarkable. Electronically Signed: Tracy Shearer MD at 19:54 EST , Abdomen CT 10/15/23 20:10 IMPRESSION: No acute abnormality. Electronically Signed: Jhonatan Robledo DO at 23:05 EST , Charges/Coding Visit Charges Inpatient E&M: 29964 Init Hosp L2
[2023-10-16] MEDS: 0.9% Normal Saline (1000mL) 1,000 ML 125 ML IV ×2 (08:06→16:45)
[2023-10-16] MEDS: Loratadine 10 MG Tablet PO (08:06)
[2023-10-16] MEDS: Carvedilol 25 MG Tablet PO ×2 (08:06→16:45)
[2023-10-16 08:15] VITALS: O2SAT 95
[2023-10-16 10:30] LABS: ALB/GLOB Ratio 0.7 RATIO (0.9-2.4); AST(SGOT) 249 U/L (15-37); Alanine Aminotransfer ALT/SGPT 265 U/L (13-56); Albumin, Serum 2.5 g/dL (3.2-5.0); Alkaline Phosphatase 349 U/L (45-117); Anion Gap 14 (5-15); BUN 30 mg/dL (7-18); BUN/Creat Ratio 24.2 RATIO (10-20); Calcium,Total 8.9 mg/dL (8.5-10.1); Chloride 105 mmol/L (98-107); Creatinine, Serum 1.24 mg/dL (0.55-1.02); EST Glomerular Filtration Rate 45 mL/min (>60); Est Glom Filt Rate - Afr Amer 54 mL/min (>60); Estimated Creatinine Clearance 49.46 ml/min; Globulin 3.8 g/dL (2.2-4.2); Glucose 115 mg/dL (74-106); Potassium 3.7 mmol/L (3.5-5.1); Protein, Total 6.3 g/dL (6.4-8.2); Sodium Level 137 mmol/L (136-145)
[2023-10-16 11:02] LABS: Thyroid Stim Hormone (TSH) 1.89 uIU/mL (0.358-3.74)
[2023-10-16] MEDS: Heparin Injection (Vial) 5,000 UNIT/ML VIAL 5000 UNIT SC (11:20)
[2023-10-16] MEDS: Pantoprazole Sodium 40 MG in 0.9% Normal Saline (100mL MB+) 100 ML 330 MG IV ×2 (11:20→21:38)
[2023-10-16 11:23] LABS: Hemoglobin A1c 6.7 % (3.8-5.6)
[2023-10-16 12:13] LABS: Bedside Glucose 125 mg/dL (74-106)
[2023-10-16] MEDS: Magnesium Sulfate 4gm/100mL 4 GM/100 ML IV.SOLN. IV (12:26)
[2023-10-16 15:30] VITALS: BP 126/61; PULSE 72; RESP 16; TEMP 36.6; O2SAT 96
[2023-10-16 17:05] LABS: Bedside Glucose 114 mg/dL (74-106)
[2023-10-16] MEDS: Montelukast 10 MG Tablet PO (21:47)
[2023-10-16 22:02] VITALS: BP 119/46; PULSE 78; RESP 18; TEMP 36.8; O2SAT 96
[2023-10-16 22:03] VITALS: O2SAT 96
[2023-10-16 22:18] LABS: Bedside Glucose 210 mg/dL (74-106)
[2023-10-17] VITALS (8 sets, daily range): BP systolic 135–153; BP diastolic 57–81; PULSE 61–81; RESP 16–18; TEMP 36.6–37.1; O2SAT 94–100; BMI 45.6
[2023-10-17] MEDS: 0.9% Normal Saline (1000mL) 1,000 ML 125 ML IV ×3 (06:15→22:47)
[2023-10-17] MEDS: Miconazole Nitrate 43 GM Bottle 1 APPLIC TOPICAL ×3 (06:15→22:51)
[2023-10-17] MEDS: Piperacil/Tazobactam 3.375 GM in 0.9% Normal Saline (50mL MB+) 50 ML IV ×3 (06:15→22:52)
[2023-10-17 06:40] LABS: Absolute Lymphocyte Count 1.03 X10^3/uL (0.83-4.51); Basophil# 0.04 X10^3/uL; Basophil% 0.5 % (0-1); Eosinophil# 0.78 X10^3/uL; Hemoglobin 11.7 g/dL (12.0-15.0); Lymphocyte # 1.03 X10^3/ul (0.83-4.51); Lymphocyte % 11.9 % (19-41); Mean Corp Hgb Conc 33.4 g/dL (32-36); Mean Corpuscular Hgb 31.3 pg (27.0-32.0); Mean Corpuscular Volume 93.6 fL (81-99); Mean Platelet Vol. 9.3 fl (6.2-12.0); Monocyte# 0.67 X10^3/uL; Monocyte% 7.7 % (0-10); NRBC Flagged by Analyzer 0 % (0-5); Neutrophil # 6.01 X10^3/uL (2.7-7.7); Neutrophil % 69.2 % (47-70); Platelet Count 145 K/mm3 (150-450); RBC Distribution Width CV 15.1 % (11.6-14.6); RBC Distribution Width SD 51.9 fl (35.1-43.9); Red Blood Count 3.74 M/mm3 (4.2-5.4); White Blood Count 8.7 K/mm3 (4.4-11.0)
[2023-10-17 06:49] LABS: Bedside Glucose 151 mg/dL (74-106)
[2023-10-17 07:05] LABS: ALB/GLOB Ratio 0.6 RATIO (0.9-2.4); AST(SGOT) 281 U/L (15-37); Alanine Aminotransfer ALT/SGPT 307 U/L (13-56); Albumin, Serum 2.4 g/dL (3.2-5.0); Alkaline Phosphatase 406 U/L (45-117); Anion Gap 8 (5-15); BUN 24 mg/dL (7-18); BUN/Creat Ratio 20.9 RATIO (10-20); Calcium,Total 8.9 mg/dL (8.5-10.1); Chloride 108 mmol/L (98-107); Creatinine, Serum 1.15 mg/dL (0.55-1.02); EST Glomerular Filtration Rate 49 mL/min (>60); Est Glom Filt Rate - Afr Amer 59 mL/min (>60); Estimated Creatinine Clearance 53.39 ml/min; Globulin 3.7 g/dL (2.2-4.2); Glucose 136 mg/dL (74-106); Magnesium 2.2 mg/dL (1.6-2.6); Phosphorus 3.4 mg/dL (2.5-4.9); Potassium 3.5 mmol/L (3.5-5.1); Protein, Total 6.1 g/dL (6.4-8.2); Sodium Level 137 mmol/L (136-145)
[2023-10-17] MEDS: LORazepam 1 MG Tablet PO (09:04)
--- NOTE | 2023-10-17 09:08 | PN.SURG_ITS ---
Subjective Subjective Patient seen and examined during AM rounds. She is found sitting out of bed in a chair. Her daughter is just assisted her with getting a shower. Jointly they state that she is imminently due down at the MRI. Mrs. Mckeon states that she is eager to go home and wants to have her surgery. She shares that her abdominal pain is improved. Objective Data Objective Data Vital Signs: Vital Signs Temp Pulse Resp BP Pulse Ox O2 Del Method 98.7 F 64 18 137/71 H 98 Room Air 10/17/23 09:05 10/17/23 09:05 10/17/23 09:05 10/17/23 09:05 10/17/23 09:05 10/17/23 09:05 Oxygen Delivery Method Room Air Weight: 266 lb 15.677 oz Body Mass Index (BMI) 45.6 Intake & Output: Intake and Output for Last 24 Hours 10/15/23 10/16/23 10/17/23 23:59 23:59 23:59 Intake Total 868.33 / 868.33 2420 / 2420 1050 / 1050 Balance 868.33 / 868.33 2420 / 2420 1050 / 1050 Lab / Micro Data 10/17/23 06:15 10/17/23 06:15 Labs: Laboratory Results - last 24 hr 10/16/23 06:20: Sodium 137, Potassium 3.7, Chloride 105, Carbon Dioxide 18.0 L, Anion Gap 14, BUN 30 H, Creatinine 1.24 H, Estim Creat Clear Calc 49.46, Est GFR (MDRD) Af Amer 54 L, Est GFR (MDRD) Non-Af 45 L, BUN/Creatinine Ratio 24.2 H, Glucose 115 H, Hemoglobin A1c 6.7 H, Calcium 8.9, Total Bilirubin 12.20 H, AST 249 H, ALT 265 H, Alkaline Phosphatase 349 H, Total Protein 6.3 L, Albumin 2.5 L , Globulin 3.8, Albumin/Globulin Ratio 0.7 L, TSH 1.89 10/16/23 11:25: POC Glucose 125 H 10/16/23 16:43: POC Glucose 114 H 10/16/23 21:43: POC Glucose 210 H 10/17/23 06:15: WBC 8.7, RBC 3.74 L, Hgb 11.7 L, Hct 35.0 L, MCV 93.6, MCH 31.3, MCHC 33.4, RDW Std Deviation 51.9 H, RDW Coeff of Jeff 15.1 H, Plt Count 145 L, MPV 9.3, Immature Gran % (Auto) 1.700 H, Neut % (Auto) 69.2, Lymph % (Auto) 11.9 L, [place] % (Auto) 7.7, Eos % (Auto) 9.0 H, Baso % (Auto) 0.5, Absolute Neuts (auto) 6.0, Absolute Lymphs (auto) 1.03, Nucleated RBC % 0, Sodium 137, Potassium 3.5, Chloride 108 H, Carbon Dioxide 21.0, Anion Gap 8, BUN 24 H, Creatinine 1.15 H, Estim Creat Clear Calc 53.39, Est GFR (MDRD) Af Amer 59 L, Est GFR (MDRD) Non-Af 49 L, BUN/Creatinine Ratio 20.9 H, Glucose 136 H, Calcium 8.9, Phosphorus 3.4, Magnesium 2.2, Total Bilirubin 11.00 H, AST 281 H, ALT 307 H, Alkaline Phosphatase 406 H, Total Protein 6.1 L, Albumin 2.4 L, Globulin 3.7, Albumin/Globulin Ratio 0.6 L 10/17/23 06:17: POC Glucose 151 H Micro: Microbiology 10/15/23 19:34 Urine, Random Urine Culture - Preliminary GNR lactose communication studies professor Rhythm Strip Rhythm Strip: Sinus Rhythm Rate: 80 Ectopy: None Physical Exam Narrative No acute distress, jaundiced Const oriented x3 Resp normal respiratory effort GI GI Narrative: Nondistended, soft, tender to palpation right upper quadrant with negative Canela sign Assessment & Plan Assessment/Plan (1) Acute calculous cholecystitis: (2) Acquired hyperbilirubinemia: (3) Elevated liver enzymes: PLAN: Plan Patient is a 78-year-old female who presents for acute onset abdominal pain with associated prodromal period of similar symptoms and some more subacute symptoms of fatigue and abnormal bowel movements. She is hospital day 2 for acute cholecystitis with exceptionally elevated bilirubin. Workup as to the cause of the latter finding is ongoing with MRI expected later today. GI consultation pending. Will await the results of these 2 pieces of patient's care plan before discussing possible laparoscopic cholecystectomy. For the interim recommend continued trending of CMP and empiric IV antibiotic coverage as labs indicate persistent impairment of biliary drainage. Charges/Coding Visit Charges Inpatient E&M: 21928 Subs Hosp L2
--- NOTE | 2023-10-17 09:30 | MRI_ITS ---
EXAM: MR ABDOMEN WITHOUT INTRAVENOUS CONTRAST, MRCP PROTOCOL CLINICAL INDICATION: Hyperbilirubinemia- eval for choledocho vs mass vs Mirizzi TECHNIQUE: Multiplanar and multisequence MR images of the abdomen without intravenous contrast obtained with MRCP sequence. Three-dimensional post-processing reconstructions were performed. COMPARISON: CT abdomen and pelvis and gallbladder ultrasound 10/15/2023 FINDINGS: LOWER THORAX: Normal. No pleural effusion. LIVER: Normal. Normal morphology. GALLBLADDER AND BILE DUCTS: 2.7 cm stone noted within contracted thick-walled gallbladder. There appears to be a mild amount of edema of the tissues adjacent to the gallbladder suggestive of acute cholecystitis. No intra- or extrahepatic biliary ductal dilation. No choledochal filling defect. PANCREAS: Normal. No focal cystic mass. No pancreatic duct dilation. SPLEEN: Normal. Non-enlarged. ADRENALS: Normal. No nodules. KIDNEYS AND URETERS: Normal. Normal renal size and position. No hydronephrosis. STOMACH AND BOWEL: 6 cm duodenal diverticulum is noted. INTRAPERITONEAL SPACE: Normal. No ascites or other fluid collection. VASCULATURE: Normal. Abdominal aorta is non-dilated. LYMPH NODES: No enlarged lymph nodes. MRI/MRCP Abdomen without Contrast IMPRESSION: 1. Large gallstone. Pericholecystic edema suggestive of acute cholecystitis. 2. Normal common bile duct. 3. 6 cm duodenal diverticulum. Electronically Signed: Heath Stauffer MD at 13:17 EST ,
[2023-10-17] MEDS: Pantoprazole Sodium 40 MG in 0.9% Normal Saline (100mL MB+) 100 ML 330 MG IV ×2 (12:01→22:48)
--- NOTE | 2023-10-17 12:08 | PCM.PN.HOSP ---
Subjective Subjective Doing well, mild right upper quadrant abdominal pain. She is still jaundiced Objective Data Objective Data Vital Signs: Vital Signs Temp Pulse Resp BP Pulse Ox O2 Del Method 98.7 F 64 18 137/71 H 98 Room Air 10/17/23 09:05 10/17/23 09:05 10/17/23 10:44 10/17/23 09:05 10/17/23 09:05 10/17/23 09:05 Oxygen Delivery Method Room Air Weight: 266 lb 15.677 oz Body Mass Index (BMI) 45.6 Intake & Output: Intake and Output for Last 24 Hours 10/16/23 10/17/23 10/18/23 03:59 03:59 03:59 Intake Total 868.33 / 868.33 3470 / 3470 50 / 50 Balance 868.33 / 868.33 3470 / 3470 50 / 50 Lab / Micro Data 10/17/23 06:15 10/17/23 06:15 Labs: Laboratory Results - last 24 hr 10/16/23 11:25: POC Glucose 125 H 10/16/23 16:43: POC Glucose 114 H 10/16/23 21:43: POC Glucose 210 H 10/17/23 06:15: WBC 8.7, RBC 3.74 L, Hgb 11.7 L, Hct 35.0 L, MCV 93.6, MCH 31.3, MCHC 33.4, RDW Std Deviation 51.9 H, RDW Coeff of Jeff 15.1 H, Plt Count 145 L, MPV 9.3, Immature Gran % (Auto) 1.700 H, Neut % (Auto) 69.2, Lymph % (Auto) 11.9 L, [place] % (Auto) 7.7, Eos % (Auto) 9.0 H, Baso % (Auto) 0.5, Absolute Neuts (auto) 6.0, Absolute Lymphs (auto) 1.03, Nucleated RBC % 0, Sodium 137, Potassium 3.5, Chloride 108 H, Carbon Dioxide 21.0, Anion Gap 8, BUN 24 H, Creatinine 1.15 H, Estim Creat Clear Calc 53.39, Est GFR (MDRD) Af Amer 59 L, Est GFR (MDRD) Non-Af 49 L, BUN/Creatinine Ratio 20.9 H, Glucose 136 H, Calcium 8.9, Phosphorus 3.4, Magnesium 2.2, Total Bilirubin 11.00 H, AST 281 H, ALT 307 H, Alkaline Phosphatase 406 H, Total Protein 6.1 L, Albumin 2.4 L, Globulin 3.7, Albumin/Globulin Ratio 0.6 L 10/17/23 06:17: POC Glucose 151 H Micro: Microbiology 10/15/23 19:34 Urine, Random Urine Culture - Preliminary GNR lactose cardiac rehabilitation program director Rhythm Strip Rhythm Strip: Sinus Rhythm Rate: 80 Ectopy: None Physical Exam Narrative General: Alert, Oriented x3, Cooperative, No apparent distress HEENT: Atraumatic, PERRLA, EOMI, Normocephalic, scleral icterus Oral: Moist Mucosa Neck: Supple, No JVD Lungs: Diminished, Normal air movement, No rhonchi, No wheeze, No rales Cardiovascular: Regular rate, Regular Rhythm, Normal S1, Normal S2, No murmurs Abdomen: Soft, RUQ tender, Non-Distended, No Hepato-splenomegaly Extremities: No edema, Capillary Refill Less than 3 Seconds Skin: No rashes, No breakdown, jaundice Musculoskeletal: No Tenderness to Palpation of Joints or Extremities Neurological: No focal deficit, Motor Exam 5/5 strength throughout, Sensory exam intact to light touch and pain Psych/Mental Status: Normal Affect, Appropriate Assessment & Plan Assessment/Plan (1) Acute calculous cholecystitis: PLAN: Plan 1. Right upper quadrant abdominal pain ?? Cholelithiasis with acute cholecystitis ? Patient admitted to regular nursing floor for symptom management as part of her evaluation consult was placed to general surgery as well as GI. Decision for patient to undergo HIDA scan deferred to general surgery. 10/17/2023: T. bili is coming down slowly MRCP pending 2. Nonalcoholic fatty liver disease ? GI consulted 3. Diabetes mellitus type II -patient's oral hypoglycemics held. Placed on long acting insulin, Accu-Cheks a.c. and at bedtime and covered with sliding scale insulin ? We will monitor make adjustments as necessary 4. Dyslipidemia -Patient is on statin therapy as well as fenofibrate, continued at home dose 5. Class III obesity with BMI of 45.8 ? Complicating care weight loss advised 6. Hypothyroidism - Patient is on levothyroxine home dose continued 7. Hypertension - Blood pressure controlled, home medications continued with dose adjustment as needed 8. Overactive bladder ? Patient is on Myrbetriq as well as oxybutynin at home 9. Hypokalemia ? Corrected per protocol repeat labs ordered for monitoring next 10. Depression with anxiety ? Patient is on escitalopram did continue 11. Allergic rhinitis ? Patient is on cetirizine DVT: Heparin Capacity Legal Wood Pile Driver Operator Reflex Medical hold order details:: IF a medical hold is selected below, a suggested order for a MEDICAL HOLD will reflex upon signing the document. Next of kin: [place] law dictates a PRIORITY LIST for identifying legal decision-maker/legal next of kin in the following order (LNOK): 1st: The patient?s legal guardian, if any 2nd: The patient's spouse (if status is questionable, consult Risk Management) 3rd: The patient?s adult child(padmini) (majority, if multiple children) 4th: The patient?s parents 5th: The patient?s adult siblings (majority, if multiple children siblings) Charges/Coding Visit Charges Inpatient E&M: 80377 Subs Hosp L2
[2023-10-17 12:16] LABS: Bedside Glucose 126 mg/dL (74-106)
[2023-10-17 12:36] LABS: Platelet Count 144 K/mm3 (150-450); RET-HE 35.3 pg (30-35); Reticulocyte Count 1.29 % (0.5-1.5)
[2023-10-17 13:12] LABS: Ferritin 321 ng/mL (8-252); Iron 98 ug/dL (50-170); Iron Binding Capacity,Total 293 ug/dL (250-450); PERCENT IRON SATURATION 33.4 % (15.0-55.0)
--- NOTE | 2023-10-17 13:35 | CASEMGMT ---
Addendum entered by Joan Brewster 10/17/23 15:35: Pt wears a CPAP at night. No additional O2 bleeding through. Original Note: MATA EASLEY Assessment Face to Face with patient for initial transition planning/care coordination assessment. MATA EASLEY introduced self and role at [facility], pt voices understanding. Pt is sleeping at this time as the pt was given Ativan for an upcoming MRI. Pt daughter at bedside and states she is willing to answer any questions. Care providers, pharmacy, and demographics verified. Admitting dx: Acute Cholecystitis LACE Strata: 2 PCP: [facility] Specialists: Pt daughter states the pt sees an Industrial Paramedic and GI specialist through a facility in [place]. Could not recall the name of the facility. Preferred Pharmacy: [facility] Insurance: [facility] [employer] Prescription Benefit: Yes LNOK: Daughter - Analy Cruz. Living Arrangements: Pt lives alone in a 2 story home with a basement with 2 steps to enter the home. Pt daughter states the entire home is handicap accessible. ADLs/IADLs: Independent Transportation: Drives, pt daughter drives DME: Pt daughter states the pt uses a straight cane at times when feeling unsteady. States mainly does not use equipment to help ambulation. Pt has a rollator at home, walk-in shower with shower chair and grab bars, raised toilet seat with grab bars, stair lift chair, and medical alert button. HHC/SNF: Denies history or needs. Plan: Pt plan and goal is to DC home via her daughter with no additional needs at this time. Ethan Brewster RN, CM
--- NOTE | 2023-10-17 16:10 | EX.PCM.CON.G ---
HPI Consult Data Date of Consult: 10/17/23 HPI Narrative Reason for Consultation: cholestatic hepatitis and jaundice HPI Narrative: STEPHANIE HERNANDEZ, is a 78 F who presents with 5 days ago patient had an episode of lower midsternal chest discomfort with nausea that did not radiate anywhere or make her dyspneic that occurred an hour or so after eating homemade shrimp Jesus. She states the next day the pain was gone she felt she did not need to go to the ER because it did not radiate . Last night after eating a doughnut, some cookies, and a submarine sandwich, she had another episode of this discomfort, and overnight she got out of bed use the bathroom but fell to the floor because her legs were feeling weak and she was unable to get up partially because her legs were stuck underneath the bed, she denies injuring herself but was not able to get up and come here until her daughter came to get her and help, upon which her daughter noticed that she was jaundiced which is new. No history of any abdominal surgeries. She is not having pain right now. She has a past medical history of morbid obesity, HTN, HLD, Diabetes mellitus type II. She currently notes the discomfort to her right upper quadrant and epigastric region is primary with palpation and rates it 5-6 out of 10 in severity or dull aching but with palpation sharp and can increase up to 8-9 out of 10 in severity. Workup in the ED included T98.1, heart rate 82, BP 153/64, respiratory rate 16, 97% on room air, CBC with WBC 20.1, hemoglobin 13, platelet 128 with left shift, CMP with sodium 129, potassium 3.3 noted to be slightly hemolyzed thus may be falsely increased, chloride 97, carbon oxide 20, BUN/creatinine 32/1.43, GFR 38, glucose 158, T. bili 12.50, AST/ALT 209/257, alk phos 306, troponin 21, lipase 93, gallbladder ultrasound with solitary gallstone with contracted gallbladder and thickening of the wall, positive Canela sign, acute cholecystitis cannot be excluded. CT scan abdomen pelvis did show a gallbladder with signs of acute cholecystitis and cholelithiasis. There were no signs of choledocholithiasis. 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 She also had MRCP that showed the same findings as the CT scan abdomen pelvis. There was no choledocholithiasis seen on either image. COUNT INCLUDES THE [facility] Medical History Allergic rhinitis Anxiety and depression CKD (chronic kidney disease) Hyperlipidemia Hypertension Hypothyroidism Morbid obesity Type 2 diabetes mellitus Home Medications aspirin 81 mg tablet,delayed release (Adult Aspirin Regimen) 81 mg PO DAILY Blood thinner 10/15/23 [History Last Taken Unknown] atorvastatin 20 mg tablet 20 mg PO DAILY cholesterol 10/15/23 [History Last Taken Unknown] carvedilol 25 mg tablet 25 mg PO Q12H Blood pres 10/15/23 [History Last Taken Unknown] cetirizine 10 mg tablet 10 mg PO DAILY Allergies 10/15/23 [History Last Taken Unknown] cholestyramine-aspartame 4 gram oral powder for susp in a packet (Cholestyramine Light) 1 ea PO DAILY cholesterol 10/15/23 [History Last Taken Unknown] empagliflozin 25 mg tablet (Jardiance) 25 mg PO DAILY Glucose control 10/15/23 [History Last Taken Unknown] ergocalciferol (vitamin D2) 1,250 mcg (50,000 unit) capsule 1,250 mcg PO DAILY Vit D 10/15/23 [History Last Taken Unknown] escitalopram oxalate 20 mg tablet 20 mg PO DAILY Anxiety 10/15/23 [History Last Taken Unknown] fenofibrate nanocrystallized 145 mg tablet 145 mg PO DAILY cholesterol 10/15/23 [History Last Taken Unknown] levothyroxine 50 mcg tablet 50 mcg PO DAILY thyroid 10/15/23 [History Last Taken Unknown] mirabegron 25 mg tablet,extended release 24 hr (Myrbetriq) 25 mg PO Q24H Bladder 10/15/23 [History Last Taken Unknown] montelukast 10 mg tablet 10 mg PO DAILY Wheezing 10/15/23 [History Last Taken Unknown] niacin 1,000 mg tablet,extended release 24 hr 1,000 mg PO DAILY cholesterol 10/15/23 [History Last Taken Unknown] oxybutynin chloride 10 mg tablet,extended release 24 hr 10 mg PO DAILY Bladder 10/15/23 [History Last Taken Unknown] sitagliptin phosphate 50 mg-metformin 1,000 mg tablet (Janumet) 1 tab PO DAILY Glucose 10/15/23 [History Last Taken Unknown] Allergy/AdvReac Type Severity Reaction Status Date / Time No Known Allergies Allergy Verified 10/15/23 17:26 Family History (Updated 10/15/23 @ 20:[address] Enma Otoole MD) Mother Cancer Diabetes Father Heart disease Surgical History S/P left knee arthroscopy Social History (Updated 10/15/23 @ 20:[address] Enma Otoole MD) household members: none Smoking Status: Former smoker how long ago did patient quit smoking: Smoked age 22-until 30 years old, 1 ppd until quit. alcohol intake: never substance use type: does not use ROS ROS Narrative Admission Review of Systems: CONSTITUTIONAL: No weight loss, fever, chills, + weakness or fatigue. HEENT: + Scleral icterus. Eyes: No visual loss, blurred vision, double vision. Ears, Nose, Throat: No hearing loss, sneezing, congestion, runny nose or sore throat. SKIN: No rash or itching, lesions, wounds. + Jaundiced appearance. CARDIOVASCULAR: No chest pain, chest pressure or chest discomfort, palpitations, edema, orthopnea, syncopal events. RESPIRATORY: No shortness of breath, cough or sputum, wheezing, hemoptysis. GASTROINTESTINAL: + anorexia, nausea without vomiting, abdominal pain. No diarrhea, melena, BRBPR. GENITOURINARY: No dysuria, frequency, urgency or retention. NEUROLOGICAL: No headache, dizziness, syncope, paralysis, ataxia, numbness or tingling in the extremities, focal weakness, change in bowel or bladder control, seizure. MUSCULOSKELETAL: + muscle, back pain, joint pain or stiffness. HEMATOLOGIC: No anemia, bleeding or bruising. LYMPHATICS: No enlarged nodes. No history of splenectomy. PSYCHIATRIC: + History of anxiety and depression. ENDOCRINOLOGIC: No reports of sweating, cold or heat intolerance. No polyuria or polydipsia. ALLERGIES: + History of allergic rhinitis. Physical Exam Narrative General: Alert, Oriented x3, Cooperative, No apparent distress HEENT: Atraumatic, PERRLA, EOMI, Normocephalic, scleral icterus Oral: Moist Mucosa Neck: Supple, No JVD Lungs: Diminished, Normal air movement, No rhonchi, No wheeze, No rales Cardiovascular: Regular rate, Regular Rhythm, Normal S1, Normal S2, No murmurs Abdomen: Soft, RUQ tender, Non-Distended, No Hepato-splenomegaly Extremities: No edema, Capillary Refill Less than 3 Seconds Skin: No rashes, No breakdown, jaundice Musculoskeletal: No Tenderness to Palpation of Joints or Extremities Neurological: No focal deficit, Motor Exam 5/5 strength throughout, Sensory exam intact to light touch and pain Psych/Mental Status: Normal Affect, Appropriate Lab / Micro Data 10/17/23 06:15 10/17/23 06:15 Labs: Laboratory Results - last 24 hr 10/16/23 16:43: POC Glucose 114 H 10/16/23 21:43: POC Glucose 210 H 10/17/23 06:15: WBC 8.7, RBC 3.74 L, Hgb 11.7 L, Hct 35.0 L, MCV 93.6, MCH 31.3, MCHC 33.4, RDW Std Deviation 51.9 H, RDW Coeff of Jeff 15.1 H, Plt Count 145 L, MPV 9.3, Immature Gran % (Auto) 1.700 H, Neut % (Auto) 69.2, Lymph % (Auto) 11.9 L, [place] % (Auto) 7.7, Eos % (Auto) 9.0 H, Baso % (Auto) 0.5, Absolute Neuts (auto) 6.0, Absolute Lymphs (auto) 1.03, Nucleated RBC % 0, Retic Count 1.29, Immature Retic Fraction 15.40, Retic Hgb Equivalent 35.3 H, Sodium 137, Potassium 3.5, Chloride 108 H, Carbon Dioxide 21.0, Anion Gap 8, BUN 24 H, Creatinine 1.15 H, Estim Creat Clear Calc 53.39, Est GFR (MDRD) Af Amer 59 L, Est GFR (MDRD) Non-Af 49 L, BUN/Creatinine Ratio 20.9 H, Glucose 136 H, Calcium 8.9, Phosphorus 3.4, Magnesium 2.2, Iron 98, TIBC 293, Iron Saturation 33.4, Ferritin 321 H, Total Bilirubin 11.00 H, AST 281 H, ALT 307 H, Alkaline Phosphatase 406 H, Total Protein 6.1 L, Albumin 2.4 L, Globulin 3.7, Albumin/Globulin Ratio 0.6 L 10/17/23 06:17: POC Glucose 151 H 10/17/23 11:57: POC Glucose 126 H Micro: Microbiology 10/15/23 19:34 Urine, Random Urine Culture - Final Klebsiella aerogenes Rhythm Strip Rhythm Strip: Sinus Rhythm Rate: 80 Ectopy: None Imagaing Radiology Impression MRCP 10/17/23 09:30 IMPRESSION: 1. Large gallstone. Pericholecystic edema suggestive of acute cholecystitis. 2. Normal common bile duct. 3. 6 cm duodenal diverticulum. Electronically Signed: Heath Stauffer MD at 13:17 EST , Assessment & Plan Assessment/Plan (1) Acute calculous cholecystitis: PLAN: Plan Patient is a 78-year-old lady admitted with abdominal pain gallbladder ultrasound obtained did show Solitary gallstone with contracted gallbladder and thickening of the wall. Positive Canela sign. Acute cholecystitis could not be excluded patient admitted to regular nursing floor with consultation placed to general surgery as well as GI 1. Right upper quadrant abdominal pain with cholelithiasis with acute cholecystitis ? She does have findings of fatty liver disease but that does not explain her right upper quadrant pain. I do recommend liver biopsy which she will get done tomorrow after her cholecystectomy 2. Nonalcoholic fatty liver disease ? She will get a liver biopsy so we can see if there is any severe steatosis. She is on medical therapy for diabetes which has been known to improve her liver enzymes and the degree of steatosis 3. Jaundice -Differential diagnosis for cholestatic hepatitis is viral hepatitis, nonhepatitis viral infection (example CMV, EBV, autoimmune hepatitis, drug-induced hepatitis ), alpha-1 antitrypsin disease, hemochromatosis, amyloidosis, sarcoidosis. Blood work is pending for autoimmune and viral workup. And biopsies is pending for further workup. Capacity Legal Freight Delivery Driver Reflex Medical hold order details:: IF a medical hold is selected below, a suggested order for a MEDICAL HOLD will reflex upon signing the document. Next of kin: [place] law dictates a PRIORITY LIST for identifying legal decision-maker/legal next of kin in the following order (LNOK): 1st: The patient?s legal guardian, if any 2nd: The patient's spouse (if status is questionable, consult Risk Management) 3rd: The patient?s adult child(padmini) (majority, if multiple children) 4th: The patient?s parents 5th: The patient?s adult siblings (majority, if multiple children siblings) Charges/Coding Visit Charges Inpatient E&M: 08254 Init Hosp L3
--- NOTE | 2023-10-17 16:21 | CASEMGMT ---
Social Work SW met with pt to discuss advance directives.? Pt confirms she has completed a living will and health care POA naming her daughter Mervat Cruz.? Pt notified that documents are not on file at [facility] and SW requested they be brought in for scanning into the EMR.? MELVINA Smith
[2023-10-17 17:13] LABS: Bedside Glucose 104 mg/dL (74-106)
[2023-10-17] MEDS: Carvedilol 25 MG Tablet PO (17:22)
[2023-10-17] MEDS: Montelukast 10 MG Tablet PO (22:53)
[2023-10-18] VITALS (18 sets, daily range): BP systolic 114–173; BP diastolic 57–93; PULSE 68–78; RESP 16–20; TEMP 36.3–37.1; O2SAT 88–98; BMI 45.6; BMI 45.9
[2023-10-18 00:33] LABS: Bedside Glucose 120 mg/dL (74-106)
[2023-10-18] MEDS: Piperacil/Tazobactam 3.375 GM in 0.9% Normal Saline (50mL MB+) 50 ML IV ×3 (06:10→21:55)
[2023-10-18] MEDS: Miconazole Nitrate 43 GM Bottle 1 APPLIC TOPICAL ×2 (06:12→20:52)
[2023-10-18 06:27] LABS: Absolute Lymphocyte Count 1.33 X10^3/uL (0.83-4.51); Absolute Neutrophil Count 4.8 X10^3/uL (2.0-7.7); Basophil# 0.08 X10^3/uL; Eosinophil# 0.75 X10^3/uL; Eosinophils% 9.6 % (0-5); Hematocrit 34.1 % (37-47); Hemoglobin 11.3 g/dL (12.0-15.0); Lymphocyte # 1.33 X10^3/ul (0.83-4.51); Mean Corp Hgb Conc 33.1 g/dL (32-36); Mean Corpuscular Hgb 30.9 pg (27.0-32.0); Mean Corpuscular Volume 93.2 fL (81-99); Mean Platelet Vol. 9.7 fl (6.2-12.0); Monocyte# 0.65 X10^3/uL; Monocyte% 8.3 % (0-10); NRBC Flagged by Analyzer 0 % (0-5); Neutrophil # 4.77 X10^3/uL (2.7-7.7); Neutrophil % 60.9 % (47-70); Platelet Count 157 K/mm3 (150-450); RBC Distribution Width CV 15.2 % (11.6-14.6); Red Blood Count 3.66 M/mm3 (4.2-5.4); White Blood Count 7.8 K/mm3 (4.4-11.0)
[2023-10-18 06:34] LABS: Bedside Glucose 117 mg/dL (74-106)
--- NOTE | 2023-10-18 07:00 | PN.GI_ITS ---
Subjective Subjective Patient is scheduled to go down for laparoscopic cholecystectomy today. She is not have any abdominal pain. She denied any nausea. She slept well overnight. Afebrile overnight. Objective Data Objective Data Vital Signs: Vital Signs Temp Pulse Resp BP Pulse Ox O2 Del Method O2 Flow Rate 98.4 F 73 18 155/93 H 94 Room Air 7 10/18/23 14:56 10/18/23 14:56 10/18/23 15:00 10/18/23 14:56 10/18/23 14:56 10/18/23 15:00 10/18/23 14:56 Oxygen Flow Rate (L/min) 7 Oxygen Delivery Method Room Air Weight: 267 lb 10.259 oz Body Mass Index (BMI) 45.9 Intake & Output: Intake and Output for Last 24 Hours 10/16/23 10/17/23 10/18/23 23:59 23:59 23:59 Intake Total 2420 / 2420 3672.08 / 3672.08 1100 / 1100 Output Total 10 / 10 Balance 2420 / 2420 3672.08 / 3672.08 1090 / 1090 Lab / Micro Data 10/18/23 06:00 10/18/23 06:00 Labs: Laboratory Results - last 24 hr 10/17/23 16:27: POC Glucose 104 10/17/23 22:47: POC Glucose 120 H 10/18/23 06:00: WBC 7.8, RBC 3.66 L, Hgb 11.3 L, Hct 34.1 L, MCV 93.2, MCH 30.9, MCHC 33.1, RDW Std Deviation 52.0 H, RDW Coeff of Jeff 15.2 H, Plt Count 157, MPV 9.7, Immature Gran % (Auto) 3.200 H, Neut % (Auto) 60.9, Lymph % (Auto) 17.0 L, [place] % (Auto) 8.3, Eos % (Auto) 9.6 H, Baso % (Auto) 1.0, Absolute Neuts (auto) 4.8, Absolute Lymphs (auto) 1.33, Nucleated RBC % 0, Sodium 136, Potassium 3.5, Chloride 108 H, Carbon Dioxide 20.0 L, Anion Gap 8, BUN 14, Creatinine 0.89, Estim Creat Clear Calc 69.09, Est GFR (MDRD) Af Amer 79, Est GFR (MDRD) Non-Af 65, BUN/Creatinine Ratio 15.7, Glucose 119 H, Calcium 9.0, Total Bilirubin 9.30 H, AST 156 H, ALT 267 H, Alkaline Phosphatase 408 H, Total Protein 6.3 L, Albumin 2.4 L, Globulin 3.9, Albumin/Globulin Ratio 0.6 L 10/18/23 06:09: POC Glucose 117 H Micro: Microbiology 10/15/23 19:34 Urine, Random Urine Culture - Final Klebsiella aerogenes Rhythm Strip Rhythm Strip: Sinus Rhythm Rate: 80 Ectopy: None Physical Exam Narrative General: Alert, Oriented x3, Cooperative, No apparent distress HEENT: Atraumatic, PERRLA, EOMI, Normocephalic, scleral icterus Oral: Moist Mucosa Neck: Supple, No JVD Lungs: Diminished, Normal air movement, No rhonchi, No wheeze, No rales Cardiovascular: Regular rate, Regular Rhythm, Normal S1, Normal S2, No murmurs Abdomen: Soft, RUQ tender, Non-Distended, No Hepato-splenomegaly Extremities: No edema, Capillary Refill Less than 3 Seconds Skin: No rashes, No breakdown, jaundice Musculoskeletal: No Tenderness to Palpation of Joints or Extremities Neurological: No focal deficit, Motor Exam 5/5 strength throughout, Sensory exam intact to light touch and pain Psych/Mental Status: Normal Affect, Appropriate Assessment & Plan Assessment/Plan (1) Acute calculous cholecystitis: PLAN: Plan Patient is a 78-year-old lady admitted with abdominal pain gallbladder ultrasound obtained did show Solitary gallstone with contracted gallbladder and thickening of the wall. Positive Canela sign. Acute cholecystitis could not be excluded patient admitted to regular nursing floor with consultation placed to general surgery as well as GI 1. Right upper quadrant abdominal pain with cholelithiasis with acute cho lecystitis ? She does have findings of fatty liver disease but that does not explain her right upper quadrant pain. I do recommend liver biopsy which she will get done tomorrow after her cholecystectomy 2. Nonalcoholic fatty liver disease ? She will get a liver biopsy so we can see if there is any severe steatosis. She is on medical therapy for diabetes which has been known to improve her liver enzymes and the degree of steatosis 3. Jaundice -Differential diagnosis for cholestatic hepatitis is viral hepatitis, nonhepatitis viral infection (example CMV, EBV, autoimmune hepatitis, drug-ind uced hepatitis ), alpha-1 antitrypsin disease, hemochromatosis, amyloidosis, sarcoidosis. Blood work is pending for autoimmune and viral workup. And biopsies is pending for further workup. 10/18/23-patient will undergo laparoscopic cholecystectomy with liver biopsy today. Her LFTs are trending down in the right direction. This is more consistent with possible biliary obstructive disease, medication side effect or autoimmune disease. Biochemical workup for autoimmune disease was sent and we will wait for liver biopsy.
[2023-10-18 07:02] LABS: ALB/GLOB Ratio 0.6 RATIO (0.9-2.4); AST(SGOT) 156 U/L (15-37); Alanine Aminotransfer ALT/SGPT 267 U/L (13-56); Albumin, Serum 2.4 g/dL (3.2-5.0); Alkaline Phosphatase 408 U/L (45-117); Anion Gap 8 (5-15); BUN 14 mg/dL (7-18); BUN/Creat Ratio 15.7 RATIO (10-20); Chloride 108 mmol/L (98-107); Creatinine, Serum 0.89 mg/dL (0.55-1.02); EST Glomerular Filtration Rate 65 mL/min (>60); Est Glom Filt Rate - Afr Amer 79 mL/min (>60); Estimated Creatinine Clearance 69.09 ml/min; Globulin 3.9 g/dL (2.2-4.2); Glucose 119 mg/dL (74-106); Potassium 3.5 mmol/L (3.5-5.1); Protein, Total 6.3 g/dL (6.4-8.2); Sodium Level 136 mmol/L (136-145)
[2023-10-18] MEDS: Carvedilol 25 MG Tablet PO ×2 (07:52→17:31)
--- NOTE | 2023-10-18 09:50 | GALL_PTH ---
PATHOLOGY RESULTS PATIENT: STEPHANIE HERNANDEZ LOC: [facility]3 U#:[id number] AGE/SX: 78/F ROOM: MA321 RE10/15/[address]: Dr. Tirso Friend MD : [id number] BED: 1 DIS: 10/19/2023 SPEC #: [id number] RECD: 10/19/23 08:36 STATUS: ROLANDO PERRIN #: [id number] MELI: 10/18/23 09:[address]: Lai Roy DEPT: SURGICAL PATHOLOGY RECD BY: Deidra Loaiza ENTERED: 10/19/23 08:37 SP TYPE: GALLBLADDE OTHR DR: MD Dr. Laura Santa DO Dr. David Kittoe, MD Dr. Michael Bortz, MD Dr. Nicholas F Kotsonis, MD Tissues: Gallbladder, NOS Liver, NOS Procedures: PAS with Diastase (control) Trichrome (control) Special Stain Group II PAS Stain (control) Surgery Specimen Level III Surgery Specimen Level V Retic (control) Iron Stain (control) Comments: @ Ordering doctor for SUIII edited from to @ by AARON at 10/19/23 1453 @ Ordering doctor for SUV edited from to @ by AARON at 10/19/23 2664 @ Submitting doctor edited from to @ by AARON at 10/19/23 0827 HEADER OPERATION: Laparoscopic subtotal cholecystectomy, liver biopsy PRE-OP DIAGNOSIS: Acute calculous cholecystitis TISSUE SUBMITTED: A - Liver biopsy, B - Gallstones MICROSCOPIC DIAGNOSIS A. Liver, core biopsy: Liver parenchymal tissue with macrovesicular steatosis and bile stasis. See microscopic description and comment. B. Gallbladder and stones, subtotal cholecystectomy: Minute fragments of gallbladder wall with acute and chronic inflammation. Gallstones, sludge material and blood clots. See comment. SJ:nona 10/20/2023 COMMENT B. The specimen predominantly consists of gallstones, blood and sludge material. Correlation with clinical, laboratory findings and appropriate follow up are necessary. Case has been reviewed in consultation with Dr. Del Cid who concurs with the above diagnosis. IDC:AM MICROSCOPIC DESCRIPTION Slides are reviewed. A. The specimen shows liver parenchymal tissue with preserved lobular architecture. Hepatocytes show macrovesicular steatosis, glycogenation of nuclei and bile stasis. Reactive changes are noted. Acute and chronic inflammatory cell infiltrates are noted in the lobules. Portal also shows mild acute and chronic inflammation. Interface inflammation is not seen. Iron stain shows absent iron. Reticulin stain is shows preserved lobular architecture. Trichrome stain shows mild increased portal fibrosis. Significant bridging fibrosis is not seen. PAS stain with and without diastase do not show any abnormal accumulation of protein. All stains are performed with appropriate matched controls. GROSS DESCRIPTION A - Received in fixative is one container labeled with the patient's name and designated liver biopsy. The specimen consists of multiple irregular fragments of núñez-brown soft tissue that in aggregate measure 1.5 x 0.5 x 0.1 cm. The specimen is totally submitted in one cassette. B - Received in fixative is one container labeled with the patient's name and designated gallstones. The specimen consists of multiple fragments of brownish-black stones mixed with sludge material and blood clot measuring in aggregate 5.0 x 5.0 x 1.0 cm. No obvious gallbladder wall tissue is identified in the specimen. Vending Mechanic tissue predominantly consists of blood clot mixed with sludge material is submitted in one cassette. / SJ:rg 10/19/2023 TC:5 CPT: 90249, 94214, 05542 x5
--- NOTE | 2023-10-18 10:38 | PCM.PN.HOSP ---
Subjective Subjective MRCP yesterday consistent with cholecystitis with duodenal diverticulum. No common bile duct obstruction plan for surgery today Objective Data Objective Data Vital Signs: Vital Signs Temp Pulse Resp BP Pulse Ox O2 Del Method 98.7 F 73 18 168/91 H 98 Room Air 10/18/23 07:39 10/18/23 07:39 10/18/23 07:46 10/18/23 07:39 10/18/23 07:39 10/18/23 07:46 Oxygen Delivery Method Room Air Weight: 267 lb 10.259 oz Body Mass Index (BMI) 45.9 Intake & Output: Intake and Output for Last 24 Hours 10/17/23 10/18/23 10/19/23 03:59 03:59 03:59 Intake Total 3470 / 3470 2672.08 / 2672.08 Balance 3470 / 3470 2672.08 / 2672.08 Lab / Micro Data 10/18/23 06:00 10/18/23 06:00 Labs: Laboratory Results - last 24 hr 10/17/23 06:15: Retic Count 1.29, Immature Retic Fraction 15.40, Retic Hgb Equivalent 35.3 H, Iron 98, TIBC 293, Iron Saturation 33.4, Ferritin 321 H 10/17/23 11:57: POC Glucose 126 H 10/17/23 16:27: POC Glucose 104 10/17/23 22:47: POC Glucose 120 H 10/18/23 06:00: WBC 7.8, RBC 3.66 L, Hgb 11.3 L, Hct 34.1 L, MCV 93.2, MCH 30.9, MCHC 33.1, RDW Std Deviation 52.0 H, RDW Coeff of Jeff 15.2 H, Plt Count 157, MPV 9.7, Immature Gran % (Auto) 3.200 H, Neut % (Auto) 60.9, Lymph % (Auto) 17.0 L, [place] % (Auto) 8.3, Eos % (Auto) 9.6 H, Baso % (Auto) 1.0, Absolute Neuts (auto) 4.8, Absolute Lymphs (auto) 1.33, Nucleated RBC % 0, Sodium 136, Potassium 3.5, Chloride 108 H, Carbon Dioxide 20.0 L, Anion Gap 8, BUN 14, Creatinine 0.89, Estim Creat Clear Calc 69.09, Est GFR (MDRD) Af Amer 79, Est GFR (MDRD) Non-Af 65, BUN/Creatinine Ratio 15.7, Glucose 119 H, Calcium 9.0, Total Bilirubin 9.30 H, AST 156 H, ALT 267 H, Alkaline Phosphatase 408 H, Total Protein 6.3 L, Albumin 2.4 L, Globulin 3.9, Albumin/Globulin Ratio 0.6 L 10/18/23 06:09: POC Glucose 117 H Micro: Microbiology 10/15/23 19:34 Urine, Random Urine Culture - Final Klebsiella aerogenes Radiography Diagnostic Testing: Radiology Impression MRCP 10/17/23 09:30 IMPRESSION: 1. Large gallstone. Pericholecystic edema suggestive of acute cholecystitis. 2. Normal common bile duct. 3. 6 cm duodenal diverticulum. Electronically Signed: Heath Stauffer MD at 13:17 EST , Rhythm Strip Rhythm Strip: Sinus Rhythm Rate: 80 Ectopy: None Physical Exam Narrative General: Alert, Oriented x3, Cooperative, No apparent distress HEENT: Atraumatic, PERRLA, EOMI, Normocephalic, scleral icterus Oral: Moist Mucosa Neck: Supple, No JVD Lungs: Diminished, Normal air movement, No rhonchi, No wheeze, No rales Cardiovascular: Regular rate, Regular Rhythm, Normal S1, Normal S2, No murmurs Abdomen: Soft, RUQ tender, Non-Distended, No Hepato-splenomegaly Extremities: No edema, Capillary Refill Less than 3 Seconds Skin: No rashes, No breakdown, jaundice Musculoskeletal: No Tenderness to Palpation of Joints or Extremities Neurological: No focal deficit, Motor Exam 5/5 strength throughout, Sensory exam intact to light touch and pain Psych/Mental Status: Normal Affect, Appropriate Assessment & Plan Assessment/Plan (1) Acute calculous cholecystitis: PLAN: Plan 1. Right upper quadrant abdominal pain ?? Cholelithiasis with acute cholecystitis ? Patient admitted to regular nursing floor for symptom management as part of her evaluation consult was placed to general surgery as well as GI. Decision for patient to undergo HIDA scan deferred to general surgery. 10/17/2023: T. bili is coming down slowly MRCP pending 10/18/2023: Plan for cholecystectomy today MRCP demonstrated cholecystitis yesterday can continue Zosyn for another 24 hours postcholecystectomy 2. Nonalcoholic fatty liver disease ? GI consulted 3. Diabetes mellitus type II -patient's oral hypoglycemics held. Placed on long acting insulin, Accu-Cheks a.c. and at bedtime and covered with sliding scale insulin ? We will monitor make adjustments as necessary 4. Dyslipidemia -Patient is on statin therapy as well as fenofibrate, continued at home dose 5. Class III obesity with BMI of 45.8 ? Complicating care weight loss advised 6. Hypothyroidism - Patient is on levothyroxine home dose continued 7. Hypertension - Blood pressure controlled, home medications continued with dose adjustment as needed 8. Overactive bladder ? Patient is on Myrbetriq as well as oxybutynin at home 9. Hypokalemia ? Corrected per protocol repeat labs ordered for monitoring next 10. Depression with anxiety ? Patient is on escitalopram did continue 11. Allergic rhinitis ? Patient is on cetirizine DVT: Heparin Capacity Legal Therapy Administrative Assistant Reflex Medical hold order details:: IF a medical hold is selected below, a suggested order for a MEDICAL HOLD will reflex upon signing the document. Next of kin: [place] law dictates a PRIORITY LIST for identifying legal decision-maker/legal next of kin in the following order (LNOK): 1st: The patient?s legal guardian, if any 2nd: The patient's spouse (if status is questionable, consult Risk Management) 3rd: The patient?s adult child(padmini) (majority, if multiple children) 4th: The patient?s parents 5th: The patient?s adult siblings (majority, if multiple children siblings) Charges/Coding Visit Charges Inpatient E&M: 92263 Subs Hosp L2
--- NOTE | 2023-10-18 13:07 | PCM.OPRPT ---
Report of Operation Date of Procedure: 10/18/23 Pre-Operative Diagnosis: Acute cholecystitis with hyperbilirubinemia Post-Operative Diagnosis: Acute on chronic cholecystitis with hyperbilirubinemia Surgery/Procedure Performed:: Laparoscopic subtotal cholecystectomy with liver biopsy Description of Surgical Findings:: ? Hepatomegaly with steatohepatitis ? Nonvisible gallbladder on peritoneal entry ? Thick-walled gallbladder with large gallstone impacted in the posterior wall of the gallbladder as well as the infundibular region of the gallbladder Surgeon: Lai Roy captain airline pilot: Sanford Stoner captain airline pilot: Qing Bernstein Type of Anesthesia: General/Supplemental Anesthesiologist: Rene Dasilva Specimen's removed: Gallstone fragments Drains: 15Fr round gustabo drain Estimated Blood Loss (mL): 100 Description of Procedure: After proper identification in the preoperative holding area the patient was brought to the operating room where she was positioned supine on the operating room table. Preoperatively SCDs were placed and antibiotics were administered. General anesthesia was then induced. Patient's abdomen was prepped and draped in usual sterile fashion. A formal timeout was conducted to confirm both patient and the procedure. Procedure was begun with a supraumbilical incision which was extended deeply down to the level of the fascia. The fascia was elevated and incised, as well as the peritoneum. A finger sweep was performed to ensure there were no underlying adhesions and a 12 mm balloon trocar was inserted. Pneumoperitoneum was established at 15 mmHg. 3 additional trocars were placed in the epigastrium (12 mm) and in the right upper quadrant (2 x 5 mm). (Later in the procedure a third 5 mm trocar was placed through the right upper quadrant). Inspection of the peritoneum revealed no inadvertent injury to the viscera below. The gallbladder was not immediately visible beneath a very large liver with clear evidence of fatty infiltration. I attempted to elevate the liver and found it to be very weighty and stiff. Even with this elevation I was unable to visualize the gallbladder and began to carefully try to tease away some adherent omentum from the underside of the liver where I presume the gallbladder resided. I also used selective electrocautery once I could confirm that I was well away from the hepatic flexure of the colon to try to minimize the bleeding risk. Ultimately the fundic portion of the gallbladder was visualized with evidence of severe, chronic inflammation. Despite trying to expose the structure further the omentum remained densely adherent to the body of the gallbladder. Upon noting these difficulties I requested the assistance of my partner Dr. Bernstein to the operating room. Jointly, we were able to elevate the liver and the gallbladder modestly and decided to proceed with a subtotal cholecystectomy and stone extraction. The anterior wall of the gallbladder was incised using the harmonic scalpel and the stone was extracted in piecemeal fashion. There was bleeding from presumable transection of the cystic artery and this was addressed with direct application of the argon coagulation device, hemoblast, fibrillar hemostatic agent, and direct pressure. With close inspection of the lumen of the gallbladder we did not identify any further evidence of stones and irrigated the compartment to try to flush any stone fragments out of its confines. The back wall of the gallbladder was subjected to argon beam coagulation effect to try to obliterate the compartment. Then, very carefully, the stone fragments that have been extracted were placed into an Endo Catch bag and were delivered free of the peritoneum. Morison's pouch was irrigated and the effluent was suctioned free of the peritoneum. Recognizing this was the extent of what we could expect to do safely and in a minimally invasive fashion we elected to place a 15 [place] round Gustabo drain adjacent to the gallbladder fossa through the patient's most lateral right upper quadrant port and positioned it laparoscopically. It was tied in at the abdominal wall using a 3-0 nylon suture. Hemostasis was again confirmed in the gallbladder fossa. Given the patient's thick abdominal wall I elected to close the fascial openings of the 12 mm port sites with #1 PDS using a Raj Alvarenga suture passer under laparoscopic visualization with [id number] technique. Satisfied with this suture placement, pneumoperitoneum was evacuated and the fascial sutures were tied. A total of 30 mL of anesthetic was injected at the port sites for postoperative pain control. The skin of each port site was then closed in subcuticular fashion using 4-0 Monocryl. The patient's right upper quadrant drain was connected to bulb suction. Steri-Strips and bandages were applied as dressings. Patient tolerated the procedure well without any apparent complications. On emergence from their anesthetic the patient was taken to PACU for ongoing recovery. Grafts/Implants Used: 15 [place] round Gustabo drain Complications None Admit VTE Documentation VTE Mechan Device Prophylaxis: SCD's Procedures Digestive 40xxx-49xxx: 50106 Laparoscopic cholecystectomy
[2023-10-18] MEDS: Bupivacaine Mpf 0.5% 30 ML VIAL (13:08)
[2023-10-18] MEDS: Morphine 2 MG/ML Syringe IV (15:36)
[2023-10-18] MEDS: 0.9% Saline Lock 10 ML Syringe IV ×2 (15:37→20:36)
[2023-10-18] MEDS: 0.9% Normal Saline (1000mL) 1,000 ML 125 ML IV ×2 (15:37→17:29)
[2023-10-18] MEDS: Insulin Lispro 100 UNIT/ML INSULN.PEN SC ×2 (17:30→20:55)
[2023-10-18 17:52] LABS: Bedside Glucose 272 mg/dL (74-106)
[2023-10-18] MEDS: oxyCODONE 5 MG Tablet PO (20:35)
[2023-10-18] MEDS: Acetaminophen 325 MG Tablet 650 MG PO (20:35)
[2023-10-18] MEDS: Pantoprazole Sodium 40 MG in 0.9% Normal Saline (100mL MB+) 100 ML 330 MG IV (20:38)
[2023-10-18] MEDS: Montelukast 10 MG Tablet PO (20:50)
[2023-10-18] MEDS: Heparin Injection (Vial) 5,000 UNIT/ML VIAL 5000 UNIT SC (20:55)
[2023-10-18 21:44] LABS: Bedside Glucose 288 mg/dL (74-106)
--- NOTE | 2023-10-18 23:27 | NURSING ---
Heparin drip initiated. initial bolus 9500 units, 1.9 ml 1600 units, 16 ml/hr IV pump locked
[2023-10-19] MEDS: 0.9% Normal Saline (1000mL) 1,000 ML 125 ML IV ×2 (01:00→09:11)
[2023-10-19 01:11] VITALS: PULSE 57; RESP 16; O2SAT 93
[2023-10-19 03:55] VITALS: BP 140/67; PULSE 63; RESP 18; TEMP 35.5; O2SAT 95
[2023-10-19] MEDS: Acetaminophen 325 MG Tablet 650 MG PO (04:23)
[2023-10-19 04:26] VITALS: BMI 45.9
[2023-10-19 05:01] VITALS: BMI 45.9
[2023-10-19] MEDS: Insulin Lispro 100 UNIT/ML INSULN.PEN SC ×2 (06:48→11:22)
[2023-10-19] MEDS: Levothyroxine 50 MCG Tablet PO (06:50)
[2023-10-19] MEDS: Piperacil/Tazobactam 3.375 GM in 0.9% Normal Saline (50mL MB+) 50 ML IV (06:50)
[2023-10-19] MEDS: Miconazole Nitrate 43 GM Bottle 1 APPLIC TOPICAL (06:51)
[2023-10-19 07:29] LABS: Bedside Glucose 179 mg/dL (74-106)
[2023-10-19 08:11] LABS: Absolute Lymphocyte Count 1.17 X10^3/uL (0.83-4.51); Absolute Neutrophil Count 12.9 X10^3/uL (2.0-7.7); Basophil# 0.03 X10^3/uL; Basophil% 0.2 % (0-1); Hematocrit 33.3 % (37-47); Hemoglobin 11.1 g/dL (12.0-15.0); Lymphocyte # 1.17 X10^3/ul (0.83-4.51); Lymphocyte % 7.8 % (19-41); Mean Corp Hgb Conc 33.3 g/dL (32-36); Mean Corpuscular Hgb 31.5 pg (27.0-32.0); Mean Corpuscular Volume 94.6 fL (81-99); Mean Platelet Vol. 11.2 fl (6.2-12.0); Monocyte# 0.79 X10^3/uL; Monocyte% 5.2 % (0-10); NRBC Flagged by Analyzer 0 % (0-5); Neutrophil # 12.88 X10^3/uL (2.7-7.7); Neutrophil % 85.5 % (47-70); Platelet Count 191 K/mm3 (150-450); RBC Distribution Width CV 15.9 % (11.6-14.6); RBC Distribution Width SD 54.3 fl (35.1-43.9); Red Blood Count 3.52 M/mm3 (4.2-5.4); White Blood Count 15.1 K/mm3 (4.4-11.0)
[2023-10-19 09:15] VITALS: BP 165/76; PULSE 60; RESP 18; TEMP 37.1; O2SAT 96
[2023-10-19] MEDS: Atorvastatin Calcium 20 MG Tablet PO (09:20)
[2023-10-19] MEDS: Carvedilol 25 MG Tablet PO (09:20)
[2023-10-19] MEDS: Loratadine 10 MG Tablet PO (09:20)
[2023-10-19] MEDS: Heparin Injection (Vial) 5,000 UNIT/ML VIAL 5000 UNIT SC (09:20)
[2023-10-19] MEDS: Tolterodine Tartrate 2 MG CAP.SA PO (09:20)
[2023-10-19] MEDS: Pantoprazole Sodium 40 MG in 0.9% Normal Saline (100mL MB+) 100 ML 330 MG IV (09:21)
[2023-10-19 10:16] LABS: ALB/GLOB Ratio 0.5 RATIO (0.9-2.4); AST(SGOT) 51 U/L (15-37); Alanine Aminotransfer ALT/SGPT 192 U/L (13-56); Albumin, Serum 2.3 g/dL (3.2-5.0); Alkaline Phosphatase 351 U/L (45-117); Anion Gap 7 (5-15); BUN 13 mg/dL (7-18); BUN/Creat Ratio 12.1 RATIO (10-20); Calcium,Total 9.3 mg/dL (8.5-10.1); Chloride 108 mmol/L (98-107); Creatinine, Serum 1.07 mg/dL (0.55-1.02); EST Glomerular Filtration Rate 53 mL/min (>60); Est Glom Filt Rate - Afr Amer 64 mL/min (>60); Estimated Creatinine Clearance 57.46 ml/min; Globulin 4.2 g/dL (2.2-4.2); Glucose 178 mg/dL (74-106); Potassium 3.9 mmol/L (3.5-5.1); Protein, Total 6.5 g/dL (6.4-8.2); Sodium Level 132 mmol/L (136-145)
--- NOTE | 2023-10-19 10:39 | PN.SURG_ITS ---
Subjective Subjective Patient evaluated sitting at the side of her bed finishing breakfast. She notes feeling much improved this morning. She denies nausea, vomiting. She is tolerating a regular diet. She is urinating well. Positive flatus. Abdominal pain well controlled. Objective Data Objective Data Vital Signs: Vital Signs Temp Pulse Resp BP Pulse Ox O2 Del Method O2 Flow Rate 95.9 F L 63 18 140/67 H 95 CPAP 4 10/19/23 03:55 10/19/23 03:55 10/19/23 03:55 10/19/23 03:55 10/19/23 03:55 10/19/23 03:59 10/18/23 18:54 Oxygen Flow Rate (L/min) 4 Oxygen Delivery Method CPAP Weight: 267 lb 10.259 oz Body Mass Index (BMI) 45.9 Intake & Output: Intake and Output for Last 24 Hours 10/17/23 10/18/23 10/19/23 23:59 23:59 23:59 Intake Total 3672.08 / 3672.08 33 / 1992.33 2235.00 / 2235.00 Output Total Balance 3672.08 / 3672.08 1962.33 / 1962.33 2235.00 / 2235.00 Lab / Micro Data 10/19/23 07:30 10/19/23 09:45 Labs: Laboratory Results - last 24 hr 10/18/23 17:15: POC Glucose 272 H 10/18/23 20:48: POC Glucose 288 H 10/19/23 06:47: POC Glucose 179 H 10/19/23 07:30: WBC 15.1 H, RBC 3.52 L, Hgb 11.1 L, Hct 33.3 L, MCV 94.6, MCH 31.5, MCHC 33.3, RDW Std Deviation 54.3 H, RDW Coeff of Jeff 15.9 H, Plt Count 191, MPV 11.2, Immature Gran % (Auto) 1.300 H, Neut % (Auto) 85.5 H, Lymph % (Auto) 7.8 L, [place] % (Auto) 5.2, Eos % (Auto) 0.0, Baso % (Auto) 0.2, Absolute Neuts (auto) 12.9 H, Absolute Lymphs (auto) 1.17, Nucleated RBC % 0, Sodium Cancelled, Potassium Cancelled, Chloride Cancelled, Carbon Dioxide Cancelled, Anion Gap Cancelled, BUN Cancelled, Creatinine Cancelled, Estim Creat Clear Calc Cancelled, Est GFR (MDRD) Af Amer Cancelled, Est GFR (MDRD) Non-Af Cancelled, BUN/Creatinine Ratio Cancelled, Glucose Cancelled, Calcium Cancelled, Total Bilirubin Cancelled, AST Cancelled, ALT Cancelled, Alkaline Phosphatase Cancelled, Total Protein Cancelled, Albumin Cancelled, Globulin Cancelled, Albumin/Globulin Ratio Cancelled 10/19/23 09:45: Sodium 132 L, Potassium 3.9, Chloride 108 H, Carbon Dioxide 17.0 L, Anion Gap 7, BUN 13, Creatinine 1.07 H, Estim Creat Clear Calc 57.46, Est GFR (MDRD) Af Amer 64, Est GFR (MDRD) Non-Af 53 L, BUN/Creatinine Ratio 12.1, Glucose 178 H, Calcium 9.3, Total Bilirubin 4.90 H, AST 51 H, ALT 192 H, Alkaline Phosphatase 351 H, Total Protein 6.5, Albumin 2.3 L, Globulin 4.2, Albumin/Globulin Ratio 0.5 L Micro: Microbiology 10/15/23 19:34 Urine, Random Urine Culture - Final Klebsiella aerogenes Rhythm Strip Rhythm Strip: Sinus Rhythm Rate: 80 Ectopy: None Physical Exam GI GI Narrative: Abdomen- obese, soft. Incision c/d/i. ABBIE drain intact. Assessment & Plan Assessment/Plan (1) Acute calculous cholecystitis: PLAN: I am following this patient in conjunction with Dr. Roy CMP reviewed with Dr. Roy from today Patient able to be discharged from a surgery standpoint Discharge on Augmentin x 5 days Discharge to home with drain Family will need drain teaching May shower in 48 hours from surgery Advance diet as tolerated at home Follow-up with Dr. oRy in 1 week for re-evaluation Capacity Legal Individual Pension Consultant Reflex Medical hold order details:: IF a medical hold is selected below, a suggested order for a MEDICAL HOLD will reflex upon signing the document. Next of kin: [place] law dictates a PRIORITY LIST for identifying legal decision-maker/legal next of kin in the following order (LNOK): 1st: The patient?s legal guardian, if any 2nd: The patient's spouse (if status is questionable, consult Risk Management) 3rd: The patient?s adult child(padmini) (majority, if multiple children) 4th: The patient?s parents 5th: The patient?s adult siblings (majority, if multiple children siblings) Charges/Coding Visit Charges Inpatient E&M: 80378 Subs Hosp L1 (post-op; no charge)
[2023-10-19 10:56] VITALS: BMI 45.9
--- NOTE | 2023-10-19 11:30 | DCINST_ITS ---
Discharge Instructions Diet Discharge Diet: Low fat / Low cholesterol and Carb Control Diet Dressing / Incision Call your doctor if your incision/area has: Continuous Slow Oozing, Sudden Increased Bleeding, Increased Redness and Foul Smelling Discharge Call your doctor if you observe: Fever of 101 or Higher, Shortness of breath, Dizziness, Fainting spells, Swelling in the ankles, Chest pain and Increased palpitations (irregular heartbeat) Drain: Suction Follow Up Care Test Results: Test results from this visit will be discussed in further detail at your follow- up appointment, if applicable. Discharge Plan Admission Admit Date/Time: 10/15/23 20:11 Attending Provider: Tirso Friend Primary Care Provider: Laura Ly Consulting Providers: Lai Roy; Enma Otoole; Malachi Batres Instructions Additional Instructions / Restrictions: Cholecystectomy Diet ? Start light with soups and soft bland foods. You may advance diet as tolerated. Activity ? You may drive in 3-5 days but not while taking narcotic pain medication. ? I encourage walking. You may go up steps, one at a time. ? Do not swim or use hot tubs for 2 weeks. ? For comfort, you may use warm compresses or ice as needed for 15-20 minutes at a time. Lifting ? You may lift up to 15 pounds for the 3 weeks. Dressings/Incision ? You may shower OVER your plastic dressings in 48 hours from your surgery ? Do NOT tub bathe for 1 week ? Leave plastic dressings on for 2 days. ? When plastic dressings are removed, you will find steri strips. It is okay to continue showering with them in place, pat them dry. ? You may remove steri-strips after 1 week. We recommend getting them soaking wet for easier removal. Drain Care You are going home with a drain. You are responsible to record the drainage character and amount each time you empty the drain. Keep drain site covered with gauze and tape. Change the dressing daily. Medications ? Anesthesia used during surgery and pain medications may cause constipation. I recommend initiating on the day of surgery a fiber supplement like, Metamucil, Citrucel, FiberCon, Benefiber, or a generic form of these medications. 1 heaping tablespoon in water daily. You may continue to utilize any bowel regimen or oral laxatives that you routinely take. ? As long as you are not intolerant to Tylenol, acetaminophen, ibuprofen, Motrin, Advil, Aleve, or similar medications, I would recommend transitioning to these [id number]-[id number] medicines as soon as possible instead of continued use of narcotic pain medication. Follow up ? You should call [facility] soon after surgery, at [phone] option 1 to make a follow up appointment for 7 days after your surgery. Discharge Orders/Prescriptions Prescriptions: New amoxicillin-pot clavulanate 875-125 mg tablet 1 tab PO Q12H 5 Days Qty: 10 0RF hydrocodone-acetaminophen 5-325 mg tablet 1 tab PO Q6H PRN (Reason: pain) 3 Days Qty: 10 0RF Continued carvedilol 25 mg tablet 25 mg PO Q12H atorvastatin 20 mg tablet 20 mg PO DAILY niacin 1,000 mg tablet extended release 24 hr 1,000 mg PO DAILY cetirizine 10 mg tablet 10 mg PO DAILY Patient Comments: TAKE ONE TABLET BY MOUTH EVERY DAY IN THE MORNING oxybutynin chloride 10 mg tablet extended release 24hr 10 mg PO DAILY levothyroxine 50 mcg tablet 50 mcg PO DAILY montelukast 10 mg tablet 10 mg PO DAILY ergocalciferol (vitamin D2) 1,250 mcg (50,000 unit) capsule 1,250 mcg PO DAILY Patient Comments: TAKE 1 CAPSULE (61258 UNITS) BY MOUTH ONCE A WEEK escitalopram oxalate 20 mg tablet 20 mg PO DAILY cholestyramine-aspartame [Cholestyramine Light] 4 gram powder in packet 1 ea PO DAILY Patient Comments: DISSOLVE 1 PACKET IN 2 TO 6 OUNCES OF WATER OR NONCARBONATED BEVERAGE TWO TIMES A DAY BEFORE MEALS AND DRINK Rx Instructions: orally daily; fenofibrate nanocrystallized 145 mg tablet 145 mg PO DAILY Hold Instructions: Pt has been DC'd Janumet 50-1,000 mg tablet 1 tab PO DAILY Myrbetriq 25 mg tablet extended release 24 hr 25 mg PO Q24H Hold Instructions: Pt has been DC'd Patient Comments: TAKE ONE TABLET BY MOUTH EVERY DAY SWALLOWING WHOLE WITH WATER. DO NOT CRUSH CHEW AND/OR DIVIDE. Jardiance 25 mg tablet 25 mg PO DAILY aspirin [Adult Aspirin Regimen] 81 mg tablet,delayed release (DR/EC) 81 mg PO DAILY Referrals / Follow Up: Laura Ly DO [Primary Care Provider] - Within 1 Week aLi Roy MD [Med Staff - Active Staff] - (Please call our office to schedule a 1 week follow-up appointment) Disposition Disposition (needs filled in before D/C Order can be placed): Home, Self Care
[2023-10-19 11:43] LABS: Bedside Glucose 262 mg/dL (74-106)
--- NOTE | 2023-10-19 12:25 | CASEMGMT ---
Addendum entered by Joan Brewster 10/19/23 15:04: Pt requesting a rollator now. Wesley states that the pt would have to give 60$ up-front and the rollator would have to be shipped. Pt states that she will just take the walker home and order or buy a new walker after DC. Addendum entered by Joan Brewster 10/19/23 13:12: Walker delivered via [employer]. Pt states that her daughter will drive her home and denies any further needs regarding the DC process. Original Note: RN CM to room to discus DC needs. Pt denies the need for HHC or outpt Tx. Pt states that she lives at home alone and her children live close by and can help her as needed. Pt states that the walker that she has at home is too big and is requesting a new one. A verbal list of local in-network providers given to pt and pt chooses [facility] for the DME. Referral sent through [facility].
[2023-10-19 13:55] VITALS: BP 163/67; PULSE 63; RESP 18; TEMP 36.6; O2SAT 100
[2023-10-19 14:08] LABS: Alpha Antitrypsin Serum 206 mg/dL (101-187); Anti-Centromere B Ab <0.2 AI (0.0-0.9); Anti-Chromatin <0.2 AI (0.0-0.9); Anti-Jo <0.2 AI (0.0-0.9); Anti-Mitochondrial AB <20.0 Units (0.0-20.0); Anti-Scleroderma-70 AB <0.2 AI (0.0-0.9); Anti-dsDNA Ab <1 IU/mL (0-9); RNP Ab <0.2 AI (0.0-0.9); SJOGREN'S Anti-SS-A test < 0.2 AI (0.0-0.9); SJOGREN'S Anti-SS-B test < 0.2 AI (0.0-0.9); Smith Ab <0.2 AI (0.0-0.9)
--- NOTE | 2023-10-19 14:32 | PHA.DC_ITS ---
Pharmacy [facility] has performed discharge medication reconciliation and counseling for this patient. 1. AUGMENTIN 875/125MG 1T PO BID X 5 DAYS 2. NORCO 5/325MG 1T PO Q6H PRN PAIN The patient's discharge medication list was reviewed for discrepancies and discrepancies were resolved. The patient was counseled on the following discharge medications and changes in medications for homegoing were reviewed. The Reason for Use, instructions for use, and potential side effects were reviewed for all new medications. The patient's questions regarding all of their medications were answered. The patient was able to verbally demonstrate an understanding of their discharge medications. Medications at Discharge Home Medications aspirin 81 mg tablet,delayed release (Adult Aspirin Regimen) 81 mg PO DAILY Blood thinner 10/15/23 atorvastatin 20 mg tablet 20 mg PO DAILY cholesterol 10/15/23 carvedilol 25 mg tablet 25 mg PO Q12H Blood pres 10/15/23 cetirizine 10 mg tablet 10 mg PO DAILY Allergies 10/15/23 cholestyramine-aspartame 4 gram oral powder for susp in a packet (Cholestyramine Light) 1 ea PO DAILY cholesterol 10/15/23 empagliflozin 25 mg tablet (Jardiance) 25 mg PO DAILY Glucose control 10/15/23 ergocalciferol (vitamin D2) 1,250 mcg (50,000 unit) capsule 1,250 mcg PO DAILY Vit D 10/15/23 escitalopram oxalate 20 mg tablet 20 mg PO DAILY Anxiety 10/15/23 fenofibrate nanocrystallized 145 mg tablet 145 mg PO DAILY cholesterol 10/15/23 levothyroxine 50 mcg tablet 50 mcg PO DAILY thyroid 10/15/23 mirabegron 25 mg tablet,extended release 24 hr (Myrbetriq) 25 mg PO Q24H Bladder 10/15/23 montelukast 10 mg tablet 10 mg PO DAILY Wheezing 10/15/23 niacin 1,000 mg tablet,extended release 24 hr 1,000 mg PO DAILY cholesterol 10/15/23 oxybutynin chloride 10 mg tablet,extended release 24 hr 10 mg PO DAILY Bladder 10/15/23 sitagliptin phosphate 50 mg-metformin 1,000 mg tablet (Janumet) 1 tab PO DAILY Glucose 10/15/23 amoxicillin 875 mg-potassium clavulanate 125 mg tablet 1 tab PO Q12H 5 days #10 tabs 10/19/23 hydrocodone-acetaminophen 5-325mg 5mg-325mg 1 tab PO Q6H PRN pain 3 days #10 tabs 10/19/23
--- NOTE | 2023-10-19 14:45 | DS.PCM_ITS ---
Providers Date of Admission: 10/15/23 Primary Care Physician: Dr. Laura Ly, DO Consultations 10/15/23 21:49 Consult: Gastroenterology Routine Consulting Provider: [facility] Reason for Consult: cholecystitis/?choledocho w/ elevated bili/LFTs EMERGENT Consult: No Notified: Yes Date Notified: 10/15/23 Time Notified: 20:13 Method of Notification: Text Consult: General Surgery Routine Consulting Provider: Lai Roy Reason for Consult: Cholecystitis EMERGENT Consult: No Notified: Yes Date Notified: 10/15/23 Time Notified: 20:13 Method of Notification: ED Physician Initiated Reason For Visit: ACUTE CHOLECYSTITIS/CHOLEDOCHOLITHASIS W HYPERBIL Diagnosis Discharge Diagnosis (1) Acute calculous cholecystitis: Status: Acute Code(s): K80.00 - Calculus of gallbladder with acute cholecystitis without obstruction Medications at Discharge Home Medications aspirin 81 mg tablet,delayed release (Adult Aspirin Regimen) 81 mg PO DAILY Blood thinner 10/15/23 atorvastatin 20 mg tablet 20 mg PO DAILY cholesterol 10/15/23 carvedilol 25 mg tablet 25 mg PO Q12H Blood pres 10/15/23 cetirizine 10 mg tablet 10 mg PO DAILY Allergies 10/15/23 cholestyramine-aspartame 4 gram oral powder for susp in a packet (Cholestyramine Light) 1 ea PO DAILY cholesterol 10/15/23 empagliflozin 25 mg tablet (Jardiance) 25 mg PO DAILY Glucose control 10/15/23 ergocalciferol (vitamin D2) 1,250 mcg (50,000 unit) capsule 1,250 mcg PO DAILY Vit D 10/15/23 escitalopram oxalate 20 mg tablet 20 mg PO DAILY Anxiety 10/15/23 fenofibrate nanocrystallized 145 mg tablet 145 mg PO DAILY cholesterol 10/15/23 levothyroxine 50 mcg tablet 50 mcg PO DAILY thyroid 10/15/23 mirabegron 25 mg tablet,extended release 24 hr (Myrbetriq) 25 mg PO Q24H Bladder 10/15/23 montelukast 10 mg tablet 10 mg PO DAILY Wheezing 10/15/23 niacin 1,000 mg tablet,extended release 24 hr 1,000 mg PO DAILY cholesterol 10/15/23 oxybutynin chloride 10 mg tablet,extended release 24 hr 10 mg PO DAILY Bladder 10/15/23 sitagliptin phosphate 50 mg-metformin 1,000 mg tablet (Janumet) 1 tab PO DAILY Glucose 10/15/23 amoxicillin 875 mg-potassium clavulanate 125 mg tablet 1 tab PO Q12H 5 days #10 tabs 10/19/23 hydrocodone-acetaminophen 5-325mg 5mg-325mg 1 tab PO Q6H PRN pain 3 days #10 tabs 10/19/23 Hospital Course Operations cholecystecomy Procedures None Summary of Care Provided Minutes Spent on Discharge: 38 Hospital Course: Per HPI: The 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 78 y/o F retired from [employer] w/ PMHx: Morbid obesity, HTN, HLD, Diabetes mellitus type II, Former tobacco use who presents to the [facility] ED on 10/15/23 with history of episode of lower midsternal chest discomfort with nausea with no radiation that occurred approximately 5 days prior following eating a heavy meal shrimp Jesus with resolution of discomfort the next day however again the evening prior to current presentation she was noted to have eaten a large sandwich as well as some cookies and donuts and had a similar episode of discomfort and eventually overnight while attempting to get up to use the restroom she felt incredibly weak and fatigued unfortunately falling with her leg stuck underneath the bed but could not get up until her daughter was able to help her and upon helping her she noted that her skin was yellowed prompting ED evaluation. Patient denies any current pain in her right upper quadrant or epigastric region at this time. She currently notes the discomfort to her right upper quadrant and epigastric region is primary with palpation and rates it 5-6 out of 10 in severity or dull aching but with palpation sharp and can increase up to 8-9 out of 10 in severity. Workup in the ED included T98.1, heart rate 82, BP 153/64, respiratory rate 16, 97% on room air, CBC with WBC 20.1, hemoglobin 13, platelet 128 with left shift, CMP with sodium 129, potassium 3.3 noted to be slightly hemolyzed thus may be falsely increased, chloride 97, carbon oxide 20, BUN/creatinine 32/1.43, GFR 38, glucose 158, T. bili 12.50, AST/ALT 209/257, alk phos 306, troponin 21, lipase 93, gallbladder ultrasound with solitary gallstone with contracted gallbladder and thickening of the wall, positive Canela sign, acute cholecystitis cannot be excluded. In the ED patient ministered maintenance IV fluid, Zosyn as well as Zofran 4 mg IV x 1. Hospital Course: 1. Right upper quadrant abdominal pain consistent with cholecystitis/hyperbilirubinemia/BAY?78-year-old female presents to the hospital with right upper quadrant abdominal pain after eating a high-fat meal. She did have an MRCP that demonstrated findings consistent with cholecystitis. She did not have a common bile duct stone to indicate as to why her bilirubin was still elevated. Gastroenterology was consulted and is proceeding with a workup for autoimmune causes however she proceeded with a cholecystectomy on 10/18/2023 and today she feels much better is tolerating a diet without any significant discomfort. She does have a ABBEI drain in place that will remain until she follows up in the office with general surgery. She was evaluated both by myself and general surgery today and we both agree that she is stable for discharge. I discussed with her the plan for discharge today she expressed understanding of the risk benefits of going home and would like to go home today. Will recommend Augmentin twice daily for 5 more days. She will also be given a prescription for [place] to help control her pain that was discussed not drive while taking narcotics. Bilirubin is slowly improving down to 4.9 I do recommend outpatient monitoring for this as well as outpatient follow-up for her nonalcoholic fatty liver disease. 2. Type 2 diabetes, hyperlipidemia, morbid obesity, hypothyroidism, hypertension, depression, anxiety are all chronic medical conditions which complicate her care. Her home medications were continued where appropriate Physical Exam Narrative General: Alert, Oriented x3, Cooperative, No apparent distress HEENT: Atraumatic, PERRLA, EOMI, Normocephalic, scleral icterus Oral: Moist Mucosa Neck: Supple, No JVD Lungs: Diminished, Normal air movement, No rhonchi, No wheeze, No rales Cardiovascular: Regular rate, Regular Rhythm, Normal S1, Normal S2, No murmurs Abdomen: Soft, tender around incision sites, Non-Distended, No Hepato- splenomegaly, ABBIE with serosanguineous fluid Extremities: No edema, Capillary Refill Less than 3 Seconds Skin: No rashes, No breakdown, jaundice, dressings intact Musculoskeletal: No Tenderness to Palpation of Joints or Extremities Neurological: No focal deficit, Motor Exam 5/5 strength throughout, Sensory exam intact to light touch and pain Psych/Mental Status: Normal Affect, Appropriate Weight / BMI Weight Weight: 267 lb 10.259 oz Body Mass Index (BMI) 45.9 ABG / Lab / Microbiology Data 10/19/23 07:30 10/19/23 09:45 Laboratory: Laboratory Results - last 24 hr 10/18/23 06:00: Llsuk-3-[id number] 206 H, JEFRY-1 Antibody <0.2, SS-A/Ro IgG Antibody < 0.2, SS-B/La IgG Antibody < 0.2, Sm ([place]) Antibody <0.2, ETIOLOGY TEACHER Antibody <0.2, Scl-70 Scleroderma Ab <0.2, Double Strand DNA Ab <1, Centromere B Antibody <0.2, Anti-Mitochondrial Ab <20.0 10/18/23 17:15: POC Glucose 272 H 10/18/23 20:48: POC Glucose 288 H 10/19/23 06:47: POC Glucose 179 H 10/19/23 07:30: WBC 15.1 H, RBC 3.52 L, Hgb 11.1 L, Hct 33.3 L, MCV 94.6, MCH 31.5, MCHC 33.3, RDW Std Deviation 54.3 H, RDW Coeff of Jeff 15.9 H, Plt Count 191, MPV 11.2, Immature Gran % (Auto) 1.300 H, Neut % (Auto) 85.5 H, Lymph % (Auto) 7.8 L, [place] % (Auto) 5.2, Eos % (Auto) 0.0, Baso % (Auto) 0.2, Absolute Neuts (auto) 12.9 H, Absolute Lymphs (auto) 1.17, Nucleated RBC % 0, Sodium Cancelled, Potassium Cancelled, Chloride Cancelled, Carbon Dioxide Cancelled, Anion Gap Cancelled, BUN Cancelled, Creatinine Cancelled, Estim Creat Clear Calc Cancelled, Est GFR (MDRD) Af Amer Cancelled, Est GFR (MDRD) Non-Af Cancelled, BUN/Creatinine Ratio Cancelled, Glucose Cancelled, Calcium Cancelled, Total Bilirubin Cancelled, AST Cancelled, ALT Cancelled, Alkaline Phosphatase Cancelled, Total Protein Cancelled, Albumin Cancelled, Globulin Cancelled, Albumin/Globulin Ratio Cancelled 10/19/23 09:45: Sodium 132 L, Potassium 3.9, Chloride 108 H, Carbon Dioxide 17.0 L, Anion Gap 7, BUN 13, Creatinine 1.07 H, Estim Creat Clear Calc 57.46, Est GFR (MDRD) Af Amer 64, Est GFR (MDRD) Non-Af 53 L, BUN/Creatinine Ratio 12.1, Glucose 178 H, Calcium 9.3, Total Bilirubin 4.90 H, AST 51 H, ALT 192 H, Kerry line Phosphatase 351 H, Total Protein 6.5, Albumin 2.3 L, Globulin 4.2, Albumin/Globulin Ratio 0.5 L 10/19/23 11:21: POC Glucose 262 H Microbiology: Microbiology 10/15/23 19:34 Urine, Random Urine Culture - Final Klebsiella aerogenes D/C Instructions Discharge Diet: Low fat / Low cholesterol and Carb Control Diet May shower in (days): 1 Call your doctor if your incision/area has: Continuous Slow Oozing, Sudden Increased Bleeding, Increased Redness and Foul Smelling Discharge Call your doctor if you observe: Fever of 101 or Higher, Shortness of breath, Dizziness, Fainting spells, Swelling in the ankles, Chest pain and Increased palpitations (irregular heartbeat) Cleanse incision/area with: Soap & Water Drain: Suction Meaningful Use Info Meaningful Use Diagnoses (Choose all that apply): None applicable Discharge Plan Admission Admit Date/Time: 10/15/23 20:11 Attending Provider: Tirso Friend Primary Care Provider: Laura Ly Consulting Providers: Lai Roy; Enma Otoole; Malachi Batres Instructions Additional Instructions / Restrictions: Cholecystectomy Diet ? Start light with soups and soft bland foods. You may advance diet as tolera denisha. Activity ? You may drive in 3-5 days but not while taking narcotic pain medication. ? I encourage walking. You may go up steps, one at a time. ? Do not swim or use hot tubs for 2 weeks. ? For comfort, you may use warm compresses or ice as needed for 15-20 minutes at a time. Lifting ? You may lift up to 15 pounds for the 3 weeks. Dressings/Incision ? You may shower OVER your plastic dressings in 48 hours from your surgery ? Do NOT tub bathe for 1 week ? Leave plastic dressings on for 2 days. ? When plastic dressings are removed, you will find steri strips. It is okay to continue showering with them in place, pat them dry. ? You may remove steri-strips after 1 week. We recommend getting them soaking wet for easier removal. Drain Care You are going home with a drain. You are responsible to record the drainage character and amount each time you empty the drain. Keep drain site covered with gauze and tape. Change the dressing daily. Medications ? Anesthesia used during surgery and pain medications may cause constipation. I recommend initiating on the day of surgery a fiber supplement like, Metamucil, Citrucel, FiberCon, Benefiber, or a generic form of these medications. 1 heaping tablespoon in water daily. You may continue to utilize any bowel regimen or oral laxatives that you routinely take. ? As long as you are not intolerant to Tylenol, acetaminophen, ibuprofen, Motrin, Advil, Aleve, or similar medications, I would recommend transitioning to these nwwm-fxr-[id number] medicines as soon as possible instead of continued use of narcotic pain medication. Follow up ? You should call [facility] soon after surgery, at [phone] option 1 to make a follow up appointment for 7 days after your surgery. Discharge Orders/Prescriptions Prescriptions: New amoxicillin-pot clavulanate 875-125 mg tablet 1 tab PO Q12H 5 Days Qty: 10 0RF hydrocodone-acetaminophen 5-325 mg tablet 1 tab PO Q6H PRN (Reason: pain) 3 Days Qty: 10 0RF Continued carvedilol 25 mg tablet 25 mg PO Q12H atorvastatin 20 mg tablet 20 mg PO DAILY niacin 1,000 mg tablet extended release 24 hr 1,000 mg PO DAILY cetirizine 10 mg tablet 10 mg PO DAILY Patient Comments: TAKE ONE TABLET BY MOUTH EVERY DAY IN THE MORNING oxybutynin chloride 10 mg tablet extended release 24hr 10 mg PO DAILY levothyroxine 50 mcg tablet 50 mcg PO DAILY montelukast 10 mg tablet 10 mg PO DAILY ergocalciferol (vitamin D2) 1,250 mcg (50,000 unit) capsule 1,250 mcg PO DAILY Patient Comments: TAKE 1 CAPSULE (00529 UNITS) BY MOUTH ONCE A WEEK escitalopram oxalate 20 mg tablet 20 mg PO DAILY cholestyramine-aspartame [Cholestyramine Light] 4 gram powder in packet 1 ea PO DAILY Patient Comments: DISSOLVE 1 PACKET IN 2 TO 6 OUNCES OF WATER OR NONCARBONATED BEVERAGE TWO TIMES A DAY BEFORE MEALS AND DRINK Rx Instructions: orally daily; fenofibrate nanocrystallized 145 mg tablet 145 mg PO DAILY Hold Instructions: Pt has been DC'd Janumet 50-1,000 mg tablet 1 tab PO DAILY Myrbetriq 25 mg tablet extended release 24 hr 25 mg PO Q24H Hold Instructions: Pt has been DC'd Patient Comments: TAKE ONE TABLET BY MOUTH EVERY DAY SWALLOWING WHOLE WITH WATER. DO NOT CRUSH CHEW AND/OR DIVIDE. Jardiance 25 mg tablet 25 mg PO DAILY aspirin [Adult Aspirin Regimen] 81 mg tablet,delayed release (DR/EC) 81 mg PO DAILY Referrals / Follow Up: Laura Ly DO [Primary Care Provider] - Within 1 Week Lai Roy MD [Med Staff - Active Staff] - (Please call our office to schedule a 1 week follow-up appointment) Disposition Disposition (needs filled in before D/C Order can be placed): Home, Self Care Charges/Coding Visit Charges Inpatient E&M: 35510 Disch Hosp >30min
[2023-10-19 14:56] VITALS: BMI 45.9
[2023-10-19 15:07] LABS: AFP, Tumor Marker < 1.8 ng/mL (0.0-9.2); Albumin 2.6 g/dL (2.9-4.4); Alpha-1-Globulins 0.3 g/dL (0.0-0.4); Anti-Smooth Muscle ABS 2 Units (0-19); Deamidated Gliadin IgA 5 units (0-19); Deamidated Gliadin IgG 2 units (0-19); EBV Acute VCA IgM < 36.0 U/mL (0.0-35.9); EBV Nuclear Antigen IgG 37.6 U/mL (0.0-17.9); EBV-VCA IgG > 600.0 U/mL (0.0-17.9); Endomysial Antibody IgA Negative (Negative); Gamma Globulin 0.6 g/dL (0.4-1.8); HEPATITIS B SURFACE AG Negative (Negative); Hep C Antibodies Non Reactive (Non Reactive); Hepatitis A IgM Antibody Negative (Negative); Hepatitis B Core AB IgM Negative (Negative); Immunoglobulin A 261 mg/dL (64-422); Immunoglobulin G 691 mg/dL (586-1602); Immunoglobulin M 104 mg/dL (26-217); PROEL- TOTAL PROTEIN 5.5 g/dL (6.0-8.5); Transferrin 249 mg/dL (192-364); t-Transglutaminase IgA <2 U/mL (0-3)
--- NOTE | 2023-10-19 15:12 | NURSING ---
reviewed student charting
== END 2023-10-19 16:09 | disposition home or self-care (01) | DRG 418 ==
LOC: ED 20:03 → MS3 20:25
PROVIDERS: Anesthesiology; Internal Medicine; Internal Medicine Gastroenterology; Surgery; Admitting Provider Family Medicine; Emergency Provider Emergency Medicine; PCP Internal Medicine; Visit Provider Family Medicine
PROC: 0FT44ZZ Resection of Gallbladder, Percutaneous Endoscopic Approach (ICD-10-PCS; CPT 47610; principal; 2023-10-18 09:30)
DX: K80.00 Calculus of gallbladder with acute cholecystitis without obstruction (principal); Z68.42 Body mass index [BMI] 45.0-49.9, adult; E87.1 Hypo-osmolality and hyponatremia; E11.22 Type 2 diabetes mellitus with diabetic chronic kidney disease; K75.81 Nonalcoholic steatohepatitis (NASH); N18.30 Chronic kidney disease, stage 3 unspecified; E66.01 Morbid (severe) obesity due to excess calories; E03.9 Hypothyroidism, unspecified; I12.9 Hypertensive chronic kidney disease with stage 1 through stage 4 chronic kidney disease, or unspecified chronic kidney disease; F41.8 Other specified anxiety disorders; E87.6 Hypokalemia; J30.9 Allergic rhinitis, unspecified; E78.5 Hyperlipidemia, unspecified; Z79.84 Long term (current) use of oral hypoglycemic drugs; Z87.891 Personal history of nicotine dependence; Z79.82 Long term (current) use of aspirin; N32.81 Overactive bladder
CPT/HCPCS: 36415; 74176; 74181; 76705; 80053; 80074; 81001; 82103; 82105; 82728; 82784; 82962; 83036; 83516; 83540; 83550; 83690; 83735; 84100; 84165; 84443; 84466; 84484; 85025; 85045; 86225; 86235; 86255; 86334; 86664; 86665; 87077; 87086; 87088; 87186; 88304; 88307; 88313; 93005; 94668; 97162; 97166; 97530; 97802; 99284; J7030; A4216; J2405

== ENCOUNTER → 2023-10-28 | Outpatient (CLI) | payer MEDICARE, SELFPAY ==
--- NOTE | 2023-10-28 08:03 | NM_ITS ---
CLINICAL: 78-year-old female with history of recent cholecystectomy with postoperative pain and suspected bile leak. RADIONUCLIDE HEPATOBILIARY SCINTIGRAPHY COMPARISON: None available FINDINGS: Following the intravenous administration of 5.4 mCi of 99m Tc Mebrofenin, hepatobiliary images reveal: 1. Relatively prompt and homogeneous radiopharmaceutical concentration is noted by a normal sized liver. No parenchymal defects are identified. 2. Gallbladder activity is not identified during 60 minutes of sequential imaging commensurate with known history of prior cholecystectomy. 3. Small intestinal tract is observed at 11 minutes post radiopharmaceutical administration. 4. Washout of the radiopharmaceutical by the hepatic parenchyma appears qualitatively normal. 5. There is no evidence of a visualized bile leak identified during 60 minutes of sequential imaging. NM/Hepatobilliary Imaging IMPRESSION: 1. Nonvisualization of the gallbladder is consistent with prior cholecystectomy. 2. There is no scintigraphic evidence of bile leak on the current examination. Electronically Signed: Teo Perdomo DO at 9:52 EST ,
--- OUTSIDE RECORDS SUMMARY | 2023-10-28 08:04 | XMS RPT_ITS | CCD ---
Author Name Unknown Address [facility] [place] [address] Organization [facility] Care Team Providers Care Validation Analyst Name Role Phone CADEN SAUCEDA (DAWN) Unavailable [...] 09-09-2023 End: 09-09-2023 ambulatory MARISA L DENNISE Facility:[id number] Start: 06-17-2023 End: 06-17-2023 ambulatory GISELA Sirena CARINA Facility:[id number] Start: 06-13-2023 End: 06-13-2023 ambulatory MARISA Bravo DENNISE Facility:[id number] Start: 01-11-2023 End: 01-12-2023 ambulatory MARISAALBERTO BOWDEN Facility:[id number] Start: 10-24-2017 End: 10-25-2017 [facility] Start: 08-29-2017 End: 09-02-2017 Ambulatory CADEN WETZEL) [facility] Payers Date Payer Category Payer Medicare [id number] Summary Purpose Family History No Family History Records FoundNo Family History Records FoundNo Family History Records Found Advance Directives No Advanced Directives Records FoundNo Advanced Directives Records FoundNo Advanced Directives Records Found Additional Source Comments INFORMATION SOURCE (unrecogn ized section and content) DATE CREATED AUTHOR AUTHOR'S ORGANIZ ATION 11/18/2021 [facility] [place] DATE CREATED AUTHOR AUTHOR'S ORGANIZ ATION [facility]DS [facility]ERTAINING TO PATIENTS [...] BE BASED ON THE PRIMARY CLINICAL RECORDS. [email or web address] [facility]. provides no warranty or guarantee of the accuracy or completeness of information in this document.
== END | disposition home or self-care (01) ==
LOC: NM 08:01
PROVIDERS: PCP Internal Medicine; Referring Provider Physician Assistant; Visit Provider Physician Assistant
DX: K83.8 Other specified diseases of biliary tract (principal)
CPT/HCPCS: 78226; A9537

== ENCOUNTER 2024-01-12 19:35 | Emergency (ER) | payer MEDICARE, SELFPAY ==
[2024-01-12 19:36] VITALS: BP 170/84; PULSE 84; RESP 18; TEMP 35.6; O2SAT 94
--- NOTE | 2024-01-12 19:45 | RAD_ITS ---
STUDY: X-RAY - RIGHT WRIST REASON FOR EXAM: Female, 78 years old. FALL TECHNIQUE: 3 view(s) of the wrist were obtained. COMPARISON: None. FINDINGS: Normal visualized distal radius and ulna. Narrowed radiocarpal articulation. Normal distal radioulnar articulation. Normal carpal bones. Normal carpal articulations. Normal carpometacarpal articulation of the thumb. Normal second through fifth carpometacarpal articulations. Normal visualized metacarpal bones. Calcification of the triangular fibrocartilage.. RAD/Wrist min 3 Views IMPRESSION: Arthritic changes. No acute fracture or dislocation Electronically Signed: Jhonatan Mendoza MD at 20:20 EDT ,
--- NOTE | 2024-01-12 19:45 | RAD_ITS ---
STUDY: X-RAY - RIGHT ELBOW REASON FOR EXAM: Female, 78 years old. FALL TECHNIQUE: 3 view(s) of the elbow. COMPARISON: None. FINDINGS: Normal visualized humerus, radius and ulna. Normal radiocapitellar and ulnotrochlear articulations. Mild periarticular ligamentous calcification. RAD/Elbow min 3 Views IMPRESSION: No evidence for acute fracture or dislocation.. Electronically Signed: Jhonatan Mendoza MD at 20:14 EDT ,
--- NOTE | 2024-01-12 19:45 | RAD_ITS ---
STUDY: X-RAY - RIGHT SHOULDER REASON FOR EXAM: Female, 78 years old. FALL TECHNIQUE: 4 view(s) of the shoulder. COMPARISON: None. FINDINGS: Narrowed glenohumeral articulation and narrowing of the subacromial space.. Normal acromioclavicular joint. Normal acromion. Normal humeral head and visualized proximal humerus. Periarticular calcification consistent with calcific tendinitis. Normal visualized pulmonary apex. RAD/Shoulder min 2 Views IMPRESSION: Degenerative changes. No acute fracture or dislocation. Electronically Signed: Jhonatan Mendoza MD at 20:15 EDT ,
--- NOTE | 2024-01-12 21:40 | EDS_ITS ---
HPI History of Present Illness Chief Complaint: Upper Extremity Injury Detail of Chief Complaint: Pain right shoulder, elbow, wrist and thumb status post fall this past Satu Informant: patient and family Occured/Mechanism Mechanism/Context: Yes blunt trauma Comment: Patient fell from standing position. She tripped. She landed on her right upper extremity. Onset/Context/Timing Onset: Days (Fall occurred Tuesday, January 06.) Context: Sudden Onset Timing: Continuous and Waxes and wanes Quality of Pain: Dull and Aching Location: Shoulder, elbow, wrist and right thumb Current Severity: Mild Maximum Severity: Moderate Worsened by: Movement Relieved by: Nothing Associated Symptoms Associated Symptoms: Negative for Parasthesia, Weakness or Loss of Funtion Narrative Narrative: Patient is a 78-year-old woman who had a mechanical fall. She is not on an anticoagulant. She is on a baby aspirin. She denies head trauma. Slight loss conscious. Denies neck pain. She denies loss of function. She complains of numbness in her thumb index and long finger. She denies chest pain or shortness of breath. She denies nausea or vomiting. She has no other complaints. Prior similar symptoms: No Recent Illness/Hospitalization: No PFSH PFS Medical History Allergic rhinitis Anxiety and depression CKD (chronic kidney disease) Hyperlipidemia Hypertension Hypothyroidism Morbid obesity Type 2 diabetes mellitus Home Medications aspirin 81 mg tablet,delayed release (Adult Aspirin Regimen) 81 mg PO DAILY Blood thinner 10/15/23 [History Last Taken Unknown] atorvastatin 20 mg tablet 20 mg PO DAILY cholesterol 10/15/23 [History Last Taken Unknown] carvedilol 25 mg tablet 25 mg PO Q12H Blood pres 10/15/23 [History Last Taken Unknown] cetirizine 10 mg tablet 10 mg PO DAILY Allergies 10/15/23 [History Last Taken Unknown] cholestyramine-aspartame 4 gram oral powder for susp in a packet (Cholestyramine Light) 1 ea PO DAILY cholesterol 10/15/23 [History Last Taken Unknown] empagliflozin 25 mg tablet (Jardiance) 25 mg PO DAILY Glucose control 10/15/23 [History Last Taken Unknown] ergocalciferol (vitamin D2) 1,250 mcg (50,000 unit) capsule 1,250 mcg PO DAILY Vit D 10/15/23 [History Last Taken Unknown] escitalopram oxalate 20 mg tablet 20 mg PO DAILY Anxiety 10/15/23 [History Last Taken Unknown] fenofibrate nanocrystallized 145 mg tablet 145 mg PO DAILY cholesterol 10/15/23 [History Last Taken Unknown] levothyroxine 50 mcg tablet 50 mcg PO DAILY thyroid 10/15/23 [History Last Taken Unknown] mirabegron 25 mg tablet,extended release 24 hr (Myrbetriq) 25 mg PO Q24H Bladder 10/15/23 [History Last Taken Unknown] montelukast 10 mg tablet 10 mg PO DAILY Wheezing 10/15/23 [History Last Taken Unknown] niacin 1,000 mg tablet,extended release 24 hr 1,000 mg PO DAILY cholesterol 10/15/23 [History Last Taken Unknown] oxybutynin chloride 10 mg tablet,extended release 24 hr 10 mg PO DAILY Bladder 10/15/23 [History Last Taken Unknown] sitagliptin phosphate 50 mg-metformin 1,000 mg tablet (Janumet) 1 tab PO DAILY Glucose 10/15/23 [History Last Taken Unknown] amoxicillin 875 mg-potassium clavulanate 125 mg tablet 1 tab PO Q12H 5 days #10 tabs 10/19/23 [Rx Last Taken Unknown] hydrocodone-acetaminophen 5-325mg 5mg-325mg 1 tab PO Q6H PRN pain 3 days #10 tabs 10/19/23 [Rx Last Taken Unknown] hydrocodone-acetaminophen 5-325mg 5mg-325mg 1 tab PO Q6H PRN PRN Pain 3 days #10 TABLETS 01/12/24 [Rx Last Taken Unknown] Allergy/AdvReac Type Severity Reaction Status Date / Time No Known Allergies Allergy Verified 01/12/24 19:36 Family History Mother Cancer Diabetes Father Heart disease Surgical History S/P laparoscopic cholecystectomy S/P left knee arthroscopy Social History household members: none Smoking Status: Former smoker how long ago did patient quit smoking: Smoked age 22-until 30 years old, 1 ppd until quit. alcohol intake: never substance use type: does not use ROS ROS ED Constitutional Constitutional ED: Denies chills, fever(s), subjective, sweats or weight loss Eyes Eyes: Denies blurry vision, change in vision or diplopia ENT ENT ED: Denies ear pain, rhinorrhea or sore throat Cardiovascular Cardiovascular: Denies chest pain or palpitations Respiratory/Chest Respiratory/Chest: Denies cough, dyspnea or dyspnea on exertion Gastrointestinal Gastrointestinal: Denies nausea or vomiting Hematologic/Lymphatic Hematologic/Lymphatic: Denies easy bleeding or easy bruising EXAM Physical Exam Const Vital Signs: 01/12/24 19:36 Temperature 96.1 F L Temperature Source Temporal Pulse Rate 84 Respiratory Rate 18 Blood Pressure 170/84 H Blood Pressure Mean 112 Pulse Ox 94 Oxygen Delivery Method Room Air Positive well nourished, well developed and obese General Appearance ED: well developed and NAD; Negative for cyanotic or nereida phoretic Nutritional Appearance: obese HEENT normocephalic and atraumatic Eyes PERRL and EOMs intact bilaterally Neck full ROM and supple Chest Wall inspection of chest normal and palpation of chest normal Resp normal respiratory effort Cardio regular rate and regular rhythm Extremity normal to inspection and full ROM Extremity Narrative: There is pain outpatient over the proximal humerus, medial epicondyles. There is no pain the patient with lateral epicondyle, lateral process or radial head with supination pronation. There is pain outpatient over the carpal bones and over the proximal phalanx of the right thumb. She complains of numbness and altered sensation in the thumb index and long finger. This is in the distribution of the radial nerve. General Extremety ED: Negative for edema General Extremity: Negative for edema Neuro oriented x3, CN's II-XII intact bilaterally, moves all extremities, no focal motor deficits and no sensory deficits noted Sensorium / Orientation: alert Motor Exam: strength 5/5 throughout Psych mental status grossly normal Skin General Skin Exam: Negative for petechiae Lesions: no lesions Rashes: no rashes MDM MDM MDM Narrative Medical decision making narrative: Nurse protocol was entered for x-ray of the shoulder elbow and wrist to rule out fracture versus contusion. Three-view x-ray of the right shoulder was obtained. There is significant de generative changes with altered shape of the proximal humerus. There is no evidence of fracture, dislocation or subluxation. Three-view x-ray of the right elbow reveals degenerative changes. There is no anterior posterior fat-pad. There is no evidence of fracture subluxation or dislocation. Three-view x-ray of the wrist reveals degenerative change of the carpal bones. There is no volar fat pad. There is no malalignment of the carpal bones. Furthermore there is no evidence of fracture of the first or second metacarpal or phalanx of the thumb. X-ray of the shoulder, elbow and wrist were independent reviewed interpreted by me. Plan is opiate analgesia. She received a dose here and discharged to home. Patient had a negative drop test. She was able to AB duct to 90 degrees before experiencing pain. Radiography Diagnostic Testing: Clinical Impression(s) from Imaging Studies Elbow X-Ray 01/12/24 19:45 IMPRESSION: No evidence for acute fracture or dislocation.. Electronically Signed: Jhonatan Mendoza MD at 20:14 EDT , Shoulder X-Ray 01/12/24 19:45 IMPRESSION: Degenerative changes. No acute fracture or dislocation. Electronically Signed: Jhonatan Mendoza MD at 20:15 EDT , Wrist X-Ray 01/12/24 19:45 IMPRESSION: Arthritic changes. No acute fracture or dislocation Electronically Signed: Jhonatan Mendoza MD at 20:20 EDT , Discharge Plan Triage Chief Complaint: Upper Extremity Injury ED Provider: Dandy Bueno Dx/Rx/DC Orders Clinical Impression: Injury due to fall, Neurapraxia of right upper extremity, Contusion of right elbow, initial encounter, Contusion of right wrist, initial encounter, Contusion of right shoulder Instructions: ED Contusion, Upper Extremity Prescriptions: New hydrocodone-acetaminophen [hydrocodone-acetaminophen] 5-325 mg tablet 1 tab PO Q6H PRN PRN (Reason: Pain) 3 Days Qty: 10 0RF No Action carvedilol 25 mg tablet 25 mg PO Q12H atorvastatin 20 mg tablet 20 mg PO DAILY niacin 1,000 mg tablet extended release 24 hr 1,000 mg PO DAILY cetirizine 10 mg tablet 10 mg PO DAILY Patient Comments: TAKE ONE TABLET BY MOUTH EVERY DAY IN THE MORNING oxybutynin chloride 10 mg tablet extended release 24hr 10 mg PO DAILY levothyroxine 50 mcg tablet 50 mcg PO DAILY montelukast 10 mg tablet 10 mg PO DAILY ergocalciferol (vitamin D2) 1,250 mcg (50,000 unit) capsule 1,250 mcg PO DAILY Patient Comments: TAKE 1 CAPSULE (71829 UNITS) BY MOUTH ONCE A WEEK escitalopram oxalate 20 mg tablet 20 mg PO DAILY cholestyramine-aspartame [Cholestyramine Light] 4 gram powder in packet 1 ea PO DAILY Patient Comments: DISSOLVE 1 PACKET IN 2 TO 6 OUNCES OF WATER OR NONCARBONATED BEVERAGE TWO TIMES A DAY BEFORE MEALS AND DRINK Rx Instructions: orally daily; fenofibrate nanocrystallized 145 mg tablet 145 mg PO DAILY Hold Instructions: Pt has been DC'd Janumet 50-1,000 mg tablet 1 tab PO DAILY Myrbetriq 25 mg tablet extended release 24 hr 25 mg PO Q24H Hold Instructions: Pt has been DC'd Patient Comments: TAKE ONE TABLET BY MOUTH EVERY DAY SWALLOWING WHOLE WITH WATER. DO NOT CRUSH CHEW AND/OR DIVIDE. Jardiance 25 mg tablet 25 mg PO DAILY aspirin [Adult Aspirin Regimen] 81 mg tablet,delayed release (DR/EC) 81 mg PO DAILY amoxicillin-pot clavulanate 875-125 mg tablet 1 tab PO Q12H 5 Days Qty: 10 0RF hydrocodone-acetaminophen 5-325 mg tablet 1 tab PO Q6H PRN (Reason: pain) 3 Days Qty: 10 0RF Primary Care Provider: Laura Ly Referrals: Laura Ly DO [Primary Care Provider] - 1 Week if not improving Disposition Disposition: Home, Self Care
[2024-01-12 22:03] VITALS: BMI 35.2
[2024-01-12] MEDS: HYDROcodone Bitartrate/Apap 5/325 Tablet PO (22:08)
== END 2024-01-12 22:10 | disposition home or self-care (01) ==
PROVIDERS: Emergency Provider Emergency Medicine; PCP Internal Medicine; Visit Provider Emergency Medicine
DX: S40.011A Contusion of right shoulder, initial encounter (principal); E11.9 Type 2 diabetes mellitus without complications; Z87.891 Personal history of nicotine dependence; M25.511 Pain in right shoulder; W01.0XXA Fall on same level from slipping, tripping and stumbling without subsequent striking against object, initial encounter; S50.01XA Contusion of right elbow, initial encounter; M19.90 Unspecified osteoarthritis, unspecified site; S60.211A Contusion of right wrist, initial encounter; E66.9 Obesity, unspecified; E03.9 Hypothyroidism, unspecified; E78.5 Hyperlipidemia, unspecified; N18.9 Chronic kidney disease, unspecified; I12.9 Hypertensive chronic kidney disease with stage 1 through stage 4 chronic kidney disease, or unspecified chronic kidney disease; Z79.82 Long term (current) use of aspirin
CPT/HCPCS: 73030; 73080; 73110; 99282

== ENCOUNTER 2025-04-17 14:17 | Inpatient (IN) | payer MEDICARE, SELFPAY ==
[2025-04-17] VITALS (17 sets, daily range): BP systolic 131–191; BP diastolic 50–103; PULSE 92–106; RESP 16–24; TEMP 36.6–38.1; O2SAT 92–99; BMI 50.6; BMI 52.0
--- NOTE | 2025-04-17 14:33 | RAD_ITS ---
PROCEDURE: ELBOW MIN 3 VIEWS 04/17/2025 REASON FOR EXAM: ATRAUMATIC PAIN TECHNIQUE: ELBOW MIN 3 VIEWS COMPARISON: Comparison is made with prior study dated January 12, 2024. FINDINGS: Bones: Degenerative changes. Joints: Normal alignment. Mild degenerative changes. Soft tissues: Soft tissue swelling. Other: RAD/Elbow min 3 Views IMPRESSION: No fracture or dislocation. Degenerative changes at the elbow joint. Reading Location: [facility]-
--- NOTE | 2025-04-17 14:39 | EX.ED.UPPERE ---
HPI History of Present Illness HPI Narrative: 79-year-old female history of CKD, hypertension and diabetes. She is right-hand dominant. Complaining of atraumatic left elbow pain since Tuesday evening. Gradual onset. No fall or any other known injury. No fever or chills. No prior history of elbow pain like this or prior surgery to her left arm. Chief Complaint: Upper Extremity Injury Informant: patient Occured/Mechanism Mechanism/Context: No injury and No blunt trauma Onset/Context/Timing Onset: Days Context: Gradual Onset Timing: Continuous Quality of Pain: Dull and Aching Current Severity: Moderate Maximum Severity: Moderate Associated Symptoms Associated Symptoms: Negative for Parasthesia, Weakness or Loss of Funtion Narrative Narrative: 79-year-old female [id number] history of diabetes complains of atraumatic left elbow pain. No prior history or surgery to that arm. Prior similar symptoms: No Recent Illness/Hospitalization: No PFSH PFSH Medical History Hypothyroidism Anxiety and depression Allergic rhinitis CKD (chronic kidney disease) Morbid obesity Hyperlipidemia Hypertension Type 2 diabetes mellitus Home Medications ?Medication ?Instructions ?Recorded ?Last Taken ?Type aspirin 81 mg tablet,delayed 81 mg PO DAILY Blood thinner 10/15/23 Unknown History release (Adult Aspirin Regimen) atorvastatin 20 mg tablet 20 mg PO DAILY cholesterol 10/15/23 Unknown History carvedilol 25 mg tablet 25 mg PO Q12H Blood pres 10/15/23 Unknown History cetirizine 10 mg tablet 10 mg PO DAILY Allergies 10/15/23 Unknown History cholestyramine-aspartame 4 gram 1 ea PO DAILY cholesterol 10/15/23 Unknown History oral powder for susp in a packet (Cholestyramine Light) empagliflozin 25 mg tablet 25 mg PO DAILY Glucose control 10/15/23 Unknown History (Jardiance) ergocalciferol (vitamin D2) 1,250 1,250 mcg PO DAILY Vit D 10/15/23 Unknown History mcg (50,000 unit) capsule escitalopram oxalate 20 mg tablet 20 mg PO DAILY Anxiety 10/15/23 Unknown History fenofibrate nanocrystallized 145 145 mg PO DAILY cholesterol 10/15/23 Unknown History mg tablet levothyroxine 50 mcg tablet 50 mcg PO DAILY thyroid 10/15/23 Unknown History mirabegron 25 mg tablet,extended 25 mg PO Q24H Bladder 10/15/23 Unknown History release 24 hr (Myrbetriq) montelukast 10 mg tablet 10 mg PO DAILY Wheezing 10/15/23 Unknown History niacin 1,000 mg tablet,extended 1,000 mg PO DAILY cholesterol 10/15/23 Unknown History release 24 hr oxybutynin chloride 10 mg 10 mg PO DAILY Bladder 10/15/23 Unknown History tablet,extended release 24 hr sitagliptin phosphate 50 1 tab PO DAILY Glucose 10/15/23 Unknown History mg-metformin 1,000 mg tablet () amoxicillin 875 mg-potassium 1 tab PO Q12H 5 days #10 tabs 10/19/23 Unknown Rx clavulanate 125 mg tablet hydrocodone-acetaminophen 5-325mg 1 tab PO Q6H PRN pain 3 days #10 10/19/23 Unknown Rx 5mg-325mg tabs hydrocodone-acetaminophen 5-325mg 1 tab PO Q6H PRN PRN Pain 3 days 01/12/24 Unknown Rx 5mg-325mg #10 TABLETS Allergy/AdvReac Type Severity Reaction Status Date / Time No Known Allergies Allergy Verified 01/12/24 19:36 Family History Mother Cancer Diabetes Father Heart disease Surgical History S/P laparoscopic cholecystectomy S/P left knee arthroscopy Social History household members: none Smoking Status: Former smoker how long ago did patient quit smoking: Smoked age 22-until 30 years old, 1 ppd until quit. alcohol intake: never substance use type: does not use ROS ROS ED ROS Narrative Left arm pain. Constitutional Constitutional ED: Denies chills or fever(s) Eyes Eyes: Denies blurry vision ENT ENT ED: Denies ear pain Cardiovascular Cardiovascular: Denies chest pain Respiratory/Chest Respiratory/Chest: Denies cough or dyspnea Gastrointestinal Gastrointestinal: Denies abdominal pain Genitourinary Genitourinary ED: Denies dysuria or hematuria Musculoskeletal Musculoskeletal: Denies back pain or myalgias Integumentary Denies abscess, Abrasions or rash Neurologic Neurologic: Denies headache(s) Psychiatric Psychiatric: Denies anxiety or depression Endocrine Endocrinology: Denies cold intolerance Hematologic/Lymphatic Hematologic/Lymphatic: Denies easy bleeding, easy bruising or lymphadenopathy Allergic/Immunologic Allergic/Immunologic ED: Denies mouth swelling, tongue swelling or urticaria EXAM Physical Exam Narrative Exam Narrative: 79-year-old female sitting upright in bed. No acute distress. Vital signs stable afebrile. Initial blood pressure 160/103. She does not appear to be septic toxic. No acute distress. Is complaining of left elbow pain. H EENT exam pupils are reactive light. Moist pink membranes. Neck nontender no JVD. No lymphadenopathy. Lungs good auscultation bilaterally. Heart regular rhythm rate about 95 no murmur. Abdomen soft nontender. Moving all 4 extremities. Her left elbow is tender to palpation. Warm to the touch. No cellulitis. She has limited flexion extension and supination and pronation of the left elbow due to pain. She has a normal radial pulse. She has normal baker pastry strength and sensation. The distal forearm and hand are nontender the shoulder is nontender. There is no lymphangitic streaking. There is no axillary lymphadenopathy. Neurologically she is awake alert. No focal motor deficits. Const Vital Signs: 04/17/25 14:18 Temperature 98 F Temperature Source Oral Pulse Rate 98 Respiratory Rate 18 Blood Pressure 162/103 H Blood Pressure Mean 122 Pulse Ox 97 Oxygen Delivery Method Room Air Positive well nourished and well developed; Negative for cachectic, contractures or unkempt General Appearance ED: well developed and NAD; Negative for unkempt, cachectic, contractures, cyanotic or diaphoretic Nutritional Appearance: Negative for cachectic HEENT Reports moist mucous membranes normocephalic and atraumatic Eyes PERRL and EOMs intact bilaterally Neck full ROM and supple General: Negative for tenderness Chest Wall inspection of chest normal and palpation of chest normal Resp normal respiratory effort and clear to auscultation bilaterally Cardio regular rate, regular rhythm, S1 normal heart sound, S2 normal heart sound and no murmurs GI non-tender and no masses Palpation: soft; Negative for tender, guarding or rebound tenderness present Back/Spine no CVA tenderness General Back: Negative for CVA tenderness Cervical Spine: Negative for cervical spine tenderness Thoracic Spine / Upper Back: Negative for thoracic spinal tenderness Lumbar Spine / Lower Back: Negative for lumbar spinal tenderness Extremity normal to inspection and full ROM Extremity Narrative: Left elbow tender. Limited flexion extension and limited supination and pronation due to pain. Warm to the touch. No significant swelling. No lymphangitic streaking. No axillary lymphadenopathy. Left hand normal touch sensation. Normal baker pastry strength. Normal radial pulse. General Extremety ED: Negative for edema General Extremity: Negative for edema Neuro oriented x3, CN's II-XII intact bilaterally, moves all extremities, no focal motor deficits and no sensory deficits noted Sensorium / Orientation: alert, oriented to person, oriented to place and oriented to time Motor Exam: strength 5/5 throughout Psych mental status grossly normal Appearance: Negative for unkempt Mood & Affect: Negative for depressed, anxious or tearful Skin General Skin Exam: Negative for petechiae Lesions: no lesions Rashes: no rashes Trauma: no lacerations or abrasions MDM MDM MDM Narrative Medical decision making narrative: 79-year-old female complain of atraumatic left elbow pain. Concern for cellulitis versus septic joint versus gout. She has had no fall injury or trauma. X-ray being obtained plus labs. She will be given morphine for pain and Zofran. I attempted a needle aspiration of the left elbow joint. Could not obtain any fluid. Area was cleaned off well prior to the attempt. Patient tolerated it well. I spoke to Dr. Shiva Vazquez orthopedics on-call. He is in evaluate the patient at this time at 4:30 PM. He is going to attempt to tap the elbow and possible even the wrist. The orthopedic physician Dr. Shiva Vazquez was able to aspirate a small amount of fluid from the left elbow. He describes it as turbid. Patient was started on IV Zosyn and vancomycin. He sent the fluid to the lab. He plans on taking him to the OR for a washout of the left elbow. She is going to be admitted to the hospitalist. History & Record Review Discussion w/independent historian: Patient and Family Additional record(s) reviewed:: Prior inpatient record, Prior outpatient record, Prior ED visit and Prior labs Lab Data Attestation: I reviewed the patient's lab results. Lab results narrative: CBC shows an elevated white count of 16.8 H&H 14 and 38. Sed rate is elevated 51. Uric acid is 7.8. Glucose was 225. Electrolytes show an anion gap of 19. Normal BUN of 11 creatinine 0.9. C-reactive protein is elevated at 119. Radiography Diagnostic Testing: Left elbow x-ray, 5 films, interpreted by myself and the radiologist shows chronic changes. No fracture. No dislocation. No acute process. Discharge Plan Triage Chief Complaint: Upper Extremity Injury ED Provider: Sanford Wise Dx/Rx/DC Orders Clinical Impression: Nontraumatic pain and swelling of elbow, Leukocytosis, History of diabetes mellitus, Septic arthritis of elbow, left Prescriptions: No Action carvedilol 25 mg tablet 25 mg PO Q12H atorvastatin 20 mg tablet 20 mg PO DAILY niacin 1,000 mg tablet extended release 24 hr 1,000 mg PO DAILY cetirizine 10 mg tablet 10 mg PO DAILY Patient Comments: TAKE ONE TABLET BY MOUTH EVERY DAY IN THE MORNING oxybutynin chloride 10 mg tablet extended release 24hr 10 mg PO DAILY levothyroxine 50 mcg tablet 50 mcg PO DAILY montelukast 10 mg tablet 10 mg PO DAILY ergocalciferol (vitamin D2) 1,250 mcg (50,000 unit) capsule 1,250 mcg PO DAILY Patient Comments: TAKE 1 CAPSULE (63228 UNITS) BY MOUTH ONCE A WEEK escitalopram oxalate 20 mg tablet 20 mg PO DAILY cholestyramine-aspartame [Cholestyramine Light] 4 gram powder in packet 1 ea PO DAILY Patient Comments: DISSOLVE 1 PACKET IN 2 TO 6 OUNCES OF WATER OR NONCARBONATED BEVERAGE TWO TIMES A DAY BEFORE MEALS AND DRINK Rx Instructions: orally daily; fenofibrate nanocrystallized 145 mg tablet 145 mg PO DAILY Janumet 50-1,000 mg tablet 1 tab PO DAILY Myrbetriq 25 mg tablet extended release 24 hr 25 mg PO Q24H Patient Comments: TAKE ONE TABLET BY MOUTH EVERY DAY SWALLOWING WHOLE WITH WATER. DO NOT CRUSH CHEW AND/OR DIVIDE. Jardiance 25 mg tablet 25 mg PO DAILY aspirin [Adult Aspirin Regimen] 81 mg tablet,delayed release (DR/EC) 81 mg PO DAILY amoxicillin-pot clavulanate 875-125 mg tablet 1 tab PO Q12H 5 Days Qty: 10 0RF hydrocodone-acetaminophen 5-325 mg tablet 1 tab PO Q6H PRN (Reason: pain) 3 Days Qty: 10 0RF hydrocodone-acetaminophen [hydrocodone-acetaminophen] 5-325 mg tablet 1 tab PO Q6H PRN PRN (Reason: Pain) 3 Days Qty: 10 0RF Primary Care Provider: Laura Ly Referrals: Malachi,Laura, DO [Primary Care Provider] - Print Language: Ecuadorean Disposition Disposition: Acute Care Hospital [facility]
[2025-04-17 15:15] LABS: Hematocrit 38.9 % (37-47); Hemoglobin 14.0 g/dL (12.0-15.0); Immature Granulocytes Count 0.080 X10^3/uL (0.0-0.0); Mean Corp Hgb Conc 36.0 g/dL (32-36); Mean Corpuscular Volume 93.7 fL (81-99); NRBC Flagged by Analyzer 0 % (0-5); POSITIVE COUNT YES; POSITIVE DIFFERENTIAL YES; RBC Distribution Width CV 12.8 % (11.6-14.6); RBC Distribution Width SD 43.8 fl (35.1-43.9); Red Blood Count 4.15 M/mm3 (4.2-5.4); White Blood Count 16.8 K/mm3 (4.4-11.0)
[2025-04-17 15:30] LABS: Differential Indicated SCAN CRITERIA MET
[2025-04-17 16:13] LABS: Uric Acid 7.8 mg/dL (2.6-6.0)
[2025-04-17 16:28] LABS: Mean Platelet Vol. 12.8 fl (6.2-12.0); Platelet Count 165 K/mm3 (150-450)
[2025-04-17 16:29] LABS: Differential Comment SCANNED
[2025-04-17 16:30] LABS: CRP 119.00 mg/L (0.0-3.0)
[2025-04-17 16:31] LABS: Anion Gap 19 (5-15); BUN 11 mg/dL (4-19); BUN/Creat Ratio 10.9 RATIO (10-20); Calcium,Total 9.5 mg/dL (7.6-11.0); Carbon Dioxide 19.1 mmol/L (21.0-32.0); Chloride 95 mmol/L (98-108); Glucose 225 mg/dL (70-99); Potassium 3.9 mmol/L (3.3-5.1)
--- NOTE | 2025-04-17 17:22 | PCM.HP.STD ---
[facility] - General General Date of Service: 04/17/25 Chief Complaint: Atraumatic left elbow pain and swelling [facility] Narrative STEPHANIE HERNANDEZ, is a 79 F who presented to [facility] ED on 04/17/2025 with atraumatic left elbow pain and swelling. Medical history is significant for type 2 diabetes mellitus, class III obesity, hypertension, hyperlipidemia and hypothyroidism. Has good functional status at baseline. Has noticed worsening left upper pain with swelling since Tuesday evening. No prior history of joint swelling or similar issues. No recent illnesses. In the ED she had a low-grade fever to 99.8F, was tachycardic to the 100s and mildly hypertensive to the 150s systolic. Labs notable for WBC count 16.8 with very elevated eosinophil count, BMP benign, ESR 51, CRP 119, uric acid 7.8. Elbow x-ray showed soft tissue swelling with degenerative changes of joint but no specific joint fluid noted. Patient was evaluated by orthopedics in the ED for concern for septic joint. Joint was aspirated with turbulent fluid removed. Fluid studies are pending but given high concern for septic joint, orthopedic surgery will be taking the patient to surgery for an I&D this evening. Hospitalist was consulted for admission. I saw the patient in the ED shortly before she went down for the I&D, daughter was present. Patient was mildly fatigued appearing but otherwise sitting back fairly comfortably in bed, conversing normally, in no acute distress. She denies any fevers or chills currently. States that her left elbow pain is better after doses of IV morphine given in the ED. She denies any other pain or discomfort. Will be admitted for further management. [facility] Medical History Hypothyroidism Anxiety and depression Allergic rhinitis CKD (chronic kidney disease) Morbid obesity Hyperlipidemia Hypertension Type 2 diabetes mellitus Home Medications ?Medication ?Instructions ?Recorded ?Last Taken ?Type aspirin 81 mg tablet,delayed 81 mg PO DAILY Blood thinner 10/15/23 Unknown History release (Adult Aspirin Regimen) atorvastatin 20 mg tablet 20 mg PO DAILY cholesterol 10/15/23 Unknown History carvedilol 25 mg tablet 25 mg PO Q12H Blood pres 10/15/23 Unknown History cetirizine 10 mg tablet 10 mg PO DAILY Allergies 10/15/23 Unknown History cholestyramine-aspartame 4 gram 1 ea PO DAILY cholesterol 10/15/23 Unknown History oral powder for susp in a packet (Cholestyramine Light) empagliflozin 25 mg tablet 25 mg PO DAILY Glucose control 10/15/23 Unknown History (Jardiance) ergocalciferol (vitamin D2) 1,250 1,250 mcg PO DAILY Vit D 10/15/23 Unknown History mcg (50,000 unit) capsule escitalopram oxalate 20 mg tablet 20 mg PO DAILY Anxiety 10/15/23 Unknown History fenofibrate nanocrystallized 145 145 mg PO DAILY cholesterol 10/15/23 Unknown History mg tablet levothyroxine 50 mcg tablet 50 mcg PO DAILY thyroid 10/15/23 Unknown History mirabegron 25 mg tablet,extended 25 mg PO Q24H Bladder 10/15/23 Unknown History release 24 hr (Myrbetriq) montelukast 10 mg tablet 10 mg PO DAILY Wheezing 10/15/23 Unknown History niacin 1,000 mg tablet,extended 1,000 mg PO DAILY cholesterol 10/15/23 Unknown History release 24 hr oxybutynin chloride 10 mg 10 mg PO DAILY Bladder 10/15/23 Unknown History tablet,extended release 24 hr sitagliptin phosphate 50 1 tab PO DAILY Glucose 10/15/23 Unknown History mg-metformin 1,000 mg tablet (Janumet) amoxicillin 875 mg-potassium 1 tab PO Q12H 5 days #10 tabs 10/19/23 Unknown Rx clavulanate 125 mg tablet hydrocodone-acetaminophen 5-325mg 1 tab PO Q6H PRN pain 3 days #10 10/19/23 Unknown Rx 5mg-325mg tabs hydrocodone-acetaminophen 5-325mg 1 tab PO Q6H PRN PRN Pain 3 days 01/12/24 Unknown Rx 5mg-325mg #10 TABLETS Allergy/AdvReac Type Severity Reaction Status Date / Time No Known Allergies Allergy Verified 01/12/24 19:36 Family History Mother Cancer Diabetes Father Heart disease Surgical History S/P laparoscopic cholecystectomy S/P left knee arthroscopy Social History household members: none Smoking Status: Former smoker how long ago did patient quit smoking: Smoked age 22-until 30 years old, 1 ppd until quit. alcohol intake: never substance use type: does not use ROS Constitutional Constitutional: Reports fatigue; Denies chills, fever(s) or weakness Eyes Eyes: Denies change in vision Cardiovascular Cardiovascular: Denies chest pain Respiratory/Chest Respiratory/Chest: Denies shortness of breath at rest Gastrointestinal Gastrointestinal: Denies abdominal pain Musculoskeletal Musculoskeletal: Reports joint pain and joint swelling; Denies myalgias Neurologic Neurologic: Denies dizziness, focal weakness or headache(s) Vital Signs Vital Signs Vital Signs: 04/17/25 14:18 04/17/25 16:18 Temperature 98 F Temperature Source Oral Pulse Rate 98 103 H Respiratory Rate 18 20 H Blood Pressure 162/103 H 191/81 H Blood Pressure Mean 122 117 Pulse Ox 97 Oxygen Delivery Method Room Air Weight Weight: 133.8 kg Body Mass Index (BMI) 50.6 Physical Exam Const alert, oriented x3 and no apparent distress Constitutional Narrative: Elderly female, class III obesity, mildly fatigued appearing but otherwise sitting back comfortably in bed, conversing normally, in no acute distress. General Appearance: cooperative and comfortable HEENT normocephalic, head/scalp atraumatic, hearing grossly normal bilaterally, nasal mucous membranes and turbinates normal and moist oral mucous membranes Eyes PERRL, EOMs intact bilaterally and conjunctivae normal Neck full ROM Chest inspection of chest normal Resp normal respiratory effort, normal air movement, no use of accessory muscles and clear to auscultation bilaterally Cardio no murmurs and peripheral pulses 2+ throughout Cardio Narrative: Tachycardic, regular rhythm. GI normal to inspection, nondistended, normoactive bowel sounds, soft to palpation, non-tender and non-distended Back/Spine normal ROM Extremity Extremity Narrative: Left elbow with erythema, swelling and tenderness to palpation. Patient does have moderate pain with bending of the elbow. Neuro moves all extremities and no focal motor deficits Psych mental status grossly normal Results Lab / Micro Data 04/17/25 14:50 04/17/25 14:50 Labs: Laboratory Results - last 24 hr 04/17/25 14:50: WBC 16.8 H, RBC 4.15 L, Hgb 14.0, Hct 38.9, MCV 93.7, MCH 33.7 H, MCHC 36.0, RDW Std Deviation 43.8, RDW Coeff of Jeff 12.8, Plt Count 165, MPV 12.8 H, Immature Gran % (Auto) 0.500, Neut % (Auto) 66.7, Lymph % (Auto) 6.2 L, Faulkner % (Auto) 8.0, Eos % (Auto) 17.9 H, Baso % (Auto) 0.7, Absolute Neuts (auto) 11.2 H, Absolute Lymphs (auto) 1.04, Nucleated RBC % 0, Differential Comment SCANNED, ESR 51 H, Sodium 133, Potassium 3.9, Chloride 95 L, Carbon Dioxide 19.1 L, Anion Gap 19 H, BUN 11, Creatinine 0.98, Est GFR (MDRD) Non-Af 59 L, BUN/Creatinine Ratio 10.9, Glucose 225 H, Uric Acid 7.8 H, Calcium 9.5, C-React Prot Ext Range 119.00 H Imaging Radiology Impression Elbow X-Ray 04/17/25 14:33 IMPRESSION: No fracture or dislocation. Degenerative changes at the elbow joint. Reading Location: [facility] Assessment & Plan Assessment/Plan (1) Nontraumatic pain and swelling of elbow: PLAN: Plan Patient is a 79-year-old female who presented [facility] ED on 04/17/2025 with atraumatic left elbow pain with swelling. 1. Concern for left elbow septic arthritis ? Admit under inpatient status to [facility]. Orthopedic surgery and infectious disease consulted. Presented with atraumatic left elbow pain with swelling. Low-grade fever, leukocytosis and elevated ESR/CRP noted on admit. Uric acid mildly elevated at 7.8. Joint aspirated in the ED, fluid studies pending. Per orthopedics, will take patient for I&D of left elbow this evening. Will treat with IV vancomycin and Zosyn for now. Appreciate orthopedic and ID recommendations. 2. Severe eosinophilia ? CBC with differential showed WBC count 16.8 with 17.9 % eosinophils. Last CBC in October 2023 showed no eosinophils. 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 Synovial fluid WBC and differential are pending. Follow-up a.m. CBC with differential. Chronic medical conditions: ? Class III obesity: BMI 50 on admit. Complicates hospital course, care and prognosis. ? Hypertension/hyperlipidemia: Pending BP post I&D, will plan to continue home meds. ? Hypothyroidism: Continue home Synthroid. ? Anxiety/depression: Continue home meds. ? Type 2 diabetes mellitus: Blood glucose 225 on admit. A1c ordered. Will treat with sliding scale insulin with meals for now, adjust as needed. ? Overactive bladder: Continue home meds. *Medication reconciliation is pending at this time. Once completed, home medications will need to be reordered. DVT prophylaxis: Lovenox twice daily CODE STATUS: Full code, verified Expected disposition: Home, TBD Total clinical time spent by myself addressing the patient's medical issues, reviewing all the data, and collaborating with patient's care team: 75 minutes. Charges/Coding Visit Charges Inpatient E&M: 42047 Init Hosp L3
[2025-04-17 17:57] LABS: RBC /Synovial Fluid 0.104 10^6/uL (0); Synovial Fld Mononuclear WBC # 1.289 10^3/ul; Synovial Fld Mononuclear WBC % 4.1 %; Synovial Fld Polynuclear WBC # 29.794 10^3/uL; Synovial Fld Polynuclear WBC % 95.9 %
--- NOTE | 2025-04-17 18:00 | ED.RN ---
family given personal belongings including rings, necklace and life alert necklace.
[2025-04-17] MEDS: Vancomycin HCl 2,000 MG in 0.9% Normal Saline (500mL Bag) 500 ML 250 MG IV (18:16)
--- NOTE | 2025-04-17 18:18 | PCM.PRE.AN2 ---
ASA Classification* ASA Classification ASA Classification: 3 and E Assessment & Plan Anesthesia* Anesthesia Assessment Anesthesia Assessment: Discussed sedation and/or anesthesia options, risks, benefits, and alternatives with patient/parents/legal guardian/POA. Questions invited. The patient/parents/legal guardian/POA seems to understand and agrees to proceed with anesthesia plan. Reviewed the physical assessment, medical history, allergy history and patient home medications list prior to surgery/procedure/anesthetic and documented any changes. Performed airway and anesthesia risk assessments. Anesthesia Type Anesthesia Type: General History Source History Obtained from:: Patient and Chart Anesthesia Focused Assessment* Temperature: 99.2 F Pulse Rate: 106 Blood Pressure: 153/90 Respiratory Rate: 19 Pulse Ox: 93 Oxygen Delivery Method: Room Air Airway Assessment Mouth opens: >3 cm Mallampati Score: II Teeth Condition: Intact Neck Range of motion (ROM): Full ROM Labs Anesthesia Preop lab: CBC WBC 16.8 K/mm3 (4.4-11.0) H 04/17/25 14:50 04/17/25 RBC 4.15 M/mm3 (4.2-5.4) L 04/17/25 14:50 04/17/25 Hgb 14.0 g/dL (12.0-15.0) 04/17/25 14:50 04/17/25 Hct 38.9 % (37-47) 04/17/25 14:50 04/17/25 Plt Count 165 K/mm3 (150-450) 04/17/25 14:50 04/17/25 CHEMISTRY Potassium 3.9 mmol/L (3.3-5.1) 04/17/25 14:50 04/17/25 Sodium 133 mmol/L (133-145) 04/17/25 14:50 04/17/25 Magnesium 2.2 mg/dL (1.6-2.6) 10/17/23 06:15 10/17/23 Phosphorus 3.4 mg/dL (2.5-4.9) 10/17/23 06:15 10/17/23 BUN 11 mg/dL (4-19) 04/17/25 14:50 04/17/25 Creatinine 0.98 mg/dL (0.70-1.20) 04/17/25 14:50 04/17/25 Glucose 225 mg/dL (70-99) H 04/17/25 14:50 04/17/25 POC Glucose 262 mg/dL (74-106) H 10/19/23 11:21 10/19/23 TSH 1.89 uIU/mL (0.358-3.74) 10/16/23 06:20 10/16/23 COAG Pre-Assessment Diagnosis/Proposed Procedure Planned Operative Procedure(s): Left wrist/elbow I&D Anesthesia History Anesthesia History - manager communication: Anesthesia History - manager communication Hx Hospitalization Any Problems With Anesthesia No 04/17/25 18:03 Cholinesterase deficiency No 10/18/23 06:04 You/Your Family Experience No 10/18/23 06:04 fever (hyperthermia) with Relationship Recent Exposure to Contagious No 10/18/23 06:04 Disease Does patient have nerve No 04/17/25 18:03 stimulator Patient instructed to have device shut off --Does patient have Pacemaker or ICD? When Was Last Pacemaker Check QUESTION #4 FULL TEXT: You/Your Family Experience fever (hyperthermia) with Anesthesia Last Oral Intake Last Oral intake: Last Oral Intake NPO since Meds taken in AM with sips of water? Meds patient instructed to take am of surgery PONV PONV - manager communication: PONV - manager communication Female HX of Motion Sickness HX of N/V After Surgery Non-Smoker Duration of Surgery greater than 60 minutes Number of Risk Factors PONV Score Height & Weight Height & Weight: Anesthesia: Height & Weight Height 5 ft 4 in 04/17/25 18:03 Weight: 133.8 kg 04/17/25 18:03 Body Mass Index (BMI) 50.6 04/17/25 18:03 Respiratory Assessment Respiratory Assessment - manager communication: Respiratory Tract Infection Hx - manager communication Hx Respiratory Tract Infection No 10/18/23 06:04 STOP Sleep Apnea STOP Sleep Apnea - manager communication: STOP Sleep Apnea - manager communication Hx Hypertension Yes 10/16/23 12:46 Hx Sleep Apnea Yes 04/17/25 18:03 CPAP No 04/17/25 18:03 BIPAP Yes 04/17/25 18:03 Do you snore loudly (louder than talking or can be heard Do you often feel tired/ fatigued/ sleepy during daytime? Has anyone observed you stop breathing during sleep? STOP Results Positive 04/17/25 18:03 QUESTION #5 FULL TEXT : Do you snore loudly (louder than talking or can be heard through closed doors)? 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 Specify any problems Hx of Preganancy in last 3 Months Nurse Filling Out Transfusion & Questions: Date: Time: Patient unable to answer at this time (ie. confused, unrespo /Reproduction History /Reproductive History - manager communication: /Reproductive Hx- manager communication Hx Now No 04/17/25 18:03 Gestational Age (in weeks): EDC: Hx Hx Para Hx Section SAB No 10/18/23 06:04 Active Medications Active Medications: Current Medications Generic Name Dose Route Start Last Admin Trade Name Freq PRN Reason Stop Dose Admin Vancomycin HCl 2,000 mg/ 540 mls @ 250 mls/hr 04/17/25 17:04 04/17/25 18:16 Sodium Chloride IV 04/17/25 19:19 250 mls/hr X1 ONE Administration PFSH Medical History Hypothyroidism Anxiety and depression Allergic rhinitis CKD (chronic kidney disease) Morbid obesity Hyperlipidemia Hypertension Type 2 diabetes mellitus Home Medications ?Medication ?Instructions ?Recorded ?Last Taken ?Type aspirin 81 mg tablet,delayed 81 mg PO DAILY Blood thinner 10/15/23 Unknown History release (Adult Aspirin Regimen) atorvastatin 20 mg tablet 20 mg PO DAILY cholesterol 10/15/23 Unknown History carvedilol 25 mg tablet 25 mg PO Q12H Blood pres 10/15/23 Unknown History cetirizine 10 mg tablet 10 mg PO DAILY Allergies 10/15/23 Unknown History cholestyramine-aspartame 4 gram 1 ea PO DAILY cholesterol 10/15/23 Unknown History oral powder for susp in a packet (Cholestyramine Light) empagliflozin 25 mg tablet 25 mg PO DAILY Glucose control 10/15/23 Unknown History (Jardiance) ergocalciferol (vitamin D2) 1,250 1,250 mcg PO DAILY Vit D 10/15/23 Unknown History mcg (50,000 unit) capsule escitalopram oxalate 20 mg tablet 20 mg PO DAILY Anxiety 10/15/23 Unknown History fenofibrate nanocrystallized 145 145 mg PO DAILY cholesterol 10/15/23 Unknown History mg tablet levothyroxine 50 mcg tablet 50 mcg PO DAILY thyroid 10/15/23 Unknown History mirabegron 25 mg tablet,extended 25 mg PO Q24H Bladder 10/15/23 Unknown History release 24 hr (Myrbetriq) montelukast 10 mg tablet 10 mg PO DAILY Wheezing 10/15/23 Unknown History niacin 1,000 mg tablet,extended 1,000 mg PO DAILY cholesterol 10/15/23 Unknown History release 24 hr oxybutynin chloride 10 mg 10 mg PO DAILY Bladder 10/15/23 Unknown History tablet,extended release 24 hr sitagliptin phosphate 50 1 tab PO DAILY Glucose 10/15/23 Unknown History mg-metformin 1,000 mg tablet (Octumet) amoxicillin 875 mg-potassium 1 tab PO Q12H 5 days #10 tabs 10/19/23 Unknown Rx clavulanate 125 mg tablet hydrocodone-acetaminophen 5-325mg 1 tab PO Q6H PRN pain 3 days #10 10/19/23 Unknown Rx 5mg-325mg tabs hydrocodone-acetaminophen 5-325mg 1 tab PO Q6H PRN PRN Pain 3 days 01/12/24 Unknown Rx 5mg-325mg #10 TABLETS Allergy/AdvReac Type Severity Reaction Status Date / Time No Known Allergies Allergy Verified 01/12/24 19:36 Family History Mother Cancer Diabetes Father Heart disease Surgical History S/P laparoscopic cholecystectomy S/P left knee arthroscopy Social History household members: none Smoking Status: Former smoker how long ago did patient quit smoking: Smoked age 22-until 30 years old, 1 ppd until quit. alcohol intake: never substance use type: does not use Review of Systems (Anesthesia) ROS Narrative System reviewed and no additional complaints, except as documented. Physical Exam Const alert and oriented x3 Nutritional Appearance: morbidly obese Resp normal respiratory effort Cardio regular rate Neuro oriented x3 and moves all extremities
--- NOTE | 2025-04-17 18:36 | CONS.ORTHO ---
HPI Consult Data Date of Consult: 04/17/25 HPI Narrative Reason for Consultation: Concern for left septic elbow HPI Narrative: STEPHANIE HERNANDEZ, is a 79 F who presents to [facility] emergency department with atraumatic left elbow pain arising approximately 36 hours ago. She denies any injury or event. Denies any problems with her left elbow previously. Patient is diabetic, on immunosuppressants for psoriasis and morbidly obese. Pain was unrelenting which prompted the emergency department visit. Initially at time my examination she denied any fevers but later did report some fevers throughout the further workup process. She denies any nausea or vomiting, chest pain or shortness of breath. Denies any flulike symptoms, dysuria. She reports some mild pain in her left wrist as well and a new rash on the dorsal aspect of her left wrist. Denies history of gout or pseudogout. [facility] Medical History Hypothyroidism Anxiety and depression Allergic rhinitis CKD (chronic kidney disease) Morbid obesity Hyperlipidemia Hypertension Type 2 diabetes mellitus Home Medications ?Medication ?Instructions ?Recorded ?Last Taken ?Type aspirin 81 mg tablet,delayed 81 mg PO DAILY Blood thinner 10/15/23 Unknown History release (Adult Aspirin Regimen) atorvastatin 20 mg tablet 20 mg PO DAILY cholesterol 10/15/23 Unknown History carvedilol 25 mg tablet 25 mg PO Q12H Blood pres 10/15/23 Unknown History cetirizine 10 mg tablet 10 mg PO DAILY Allergies 10/15/23 Unknown History cholestyramine-aspartame 4 gram 1 ea PO DAILY cholesterol 10/15/23 Unknown History oral powder for susp in a packet (Cholestyramine Light) empagliflozin 25 mg tablet 25 mg PO DAILY Glucose control 10/15/23 Unknown History (Jardiance) ergocalciferol (vitamin D2) 1,250 1,250 mcg PO DAILY Vit D 10/15/23 Unknown History mcg (50,000 unit) capsule escitalopram oxalate 20 mg tablet 20 mg PO DAILY Anxiety 10/15/23 Unknown History fenofibrate nanocrystallized 145 145 mg PO DAILY cholesterol 10/15/23 Unknown History mg tablet levothyroxine 50 mcg tablet 50 mcg PO DAILY thyroid 10/15/23 Unknown History mirabegron 25 mg tablet,extended 25 mg PO Q24H Bladder 10/15/23 Unknown History release 24 hr (Myrbetriq) montelukast 10 mg tablet 10 mg PO DAILY Wheezing 10/15/23 Unknown History niacin 1,000 mg tablet,extended 1,000 mg PO DAILY cholesterol 10/15/23 Unknown History release 24 hr oxybutynin chloride 10 mg 10 mg PO DAILY Bladder 10/15/23 Unknown History tablet,extended release 24 hr sitagliptin phosphate 50 1 tab PO DAILY Glucose 10/15/23 Unknown History mg-metformin 1,000 mg tablet (Janumet) amoxicillin 875 mg-potassium 1 tab PO Q12H 5 days #10 tabs 10/19/23 Unknown Rx clavulanate 125 mg tablet hydrocodone-acetaminophen 5-325mg 1 tab PO Q6H PRN pain 3 days #10 10/19/23 Unknown Rx 5mg-325mg tabs hydrocodone-acetaminophen 5-325mg 1 tab PO Q6H PRN PRN Pain 3 days 01/12/24 Unknown Rx 5mg-325mg #10 TABLETS Allergy/AdvReac Type Severity Reaction Status Date / Time No Known Allergies Allergy Verified 01/12/24 19:36 Family History Mother Cancer Diabetes Father Heart disease Surgical History S/P laparoscopic cholecystectomy S/P left knee arthroscopy Social History household members: none Smoking Status: Former smoker how long ago did patient quit smoking: Smoked age 22-until 30 years old, 1 ppd until quit. alcohol intake: never substance use type: does not use ROS ROS Narrative 12 point review of systems obtained, negative as otherwise known HPI. Vital Signs Vital Signs Vital Signs: 04/17/25 14:18 04/17/25 16:18 04/17/25 17:58 Temperature 98 F 99.8 F H Temperature Source Oral Pulse Rate 98 103 H 106 H Respiratory Rate 18 20 H 22 H Blood Pressure 162/103 H 191/81 H 151/82 H Blood Pressure Mean 122 117 105 Blood Pressure Source Blood Pressure Location Pulse Ox 97 94 Oxygen Delivery Method Room Air 04/17/25 18:00 04/17/25 18:03 04/17/25 18:20 Temperature 99.8 F H 99.2 F H 99.2 F H Temperature Source Oral Oral Pulse Rate 106 H 106 H 106 H Respiratory Rate 22 H 19 H 19 H Blood Pressure 152/82 H 153/90 H 153/90 H Blood Pressure Mean 105 111 Blood Pressure Source Monitor Blood Pressure Location Right Arm Pulse Ox 93 93 93 Oxygen Delivery Method Nasal Cannula Nasal Cannula Room Air Weight Weight: 294 lb 15.656 oz Body Mass Index (BMI) 50.6 Physical Exam Narrative General -A&Ox3, NAD, appears stated age. Tachycardic Respiratory -normal work of breathing, no intercostal retractions. CV -pulses regular, brisk capillary refill ?4 limbs. Abdomen-soft, nontender, nondistended. No guarding, rigidity, rebound tenderness. Musculoskeletal/neurologic -no erythema, nontender right upper extremity, bilateral lower extremities. Left upper extremity-Short range of motion pain present left elbow. Body habitus limits exam. No erythema of the left elbow. There is what appears to be either a early cellulitic versus lymphangitic rash along the dorsal hand into the left wrist. She tolerates short arc range of motion well in the left wrist but does have radiocarpal joint tenderness. No obvious palpable effusion. No open wounds identified. Sensation intact throughout. Cardinal motions left hand are intact. Brisk capillary fill in the fingertips. Radial pulse 2+. Lab / Micro Data 04/17/25 14:50 04/17/25 14:50 Labs: Laboratory Results - last 24 hr 04/17/25 14:50: WBC 16.8 H, RBC 4.15 L, Hgb 14.0, Hct 38.9, MCV 93.7, MCH 33.7 H, MCHC 36.0, RDW Std Deviation 43.8, RDW Coeff of Jeff 12.8, Plt Count 165, MPV 12.8 H, Immature Gran % (Auto) 0.500, Neut % (Auto) 66.7, Lymph % (Auto) 6.2 L, Catron % (Auto) 8.0, Eos % (Auto) 17.9 H, Baso % (Auto) 0.7, Absolute Neuts (auto) 11.2 H, Absolute Lymphs (auto) 1.04, Nucleated RBC % 0, Differential Comment SCANNED, ESR 51 H, Sodium 133, Potassium 3.9, Chloride 95 L, Carbon Dioxide 19.1 L, Anion Gap 19 H, BUN 11, Creatinine 0.98, Est GFR (MDRD) Non-Af 59 L, BUN/Creatinine Ratio 10.9, Glucose 225 H, Uric Acid 7.8 H, Calcium 9.5, C-React Prot Ext Range 119.00 H 04/17/25 16:48: Fluid Source Cancelled, Fluid Color Cancelled, Fluid Appearance Cancelled, Fluid WBC Cancelled, Fluid RBC Cancelled, Fluid Tot Cell Count Cancelled, Fld Polynuclear WBCs # Cancelled, Fld Polynuclear WBCs % Cancelled, Fluid Mononuclear WBCs Cancelled, Fld Mononuclear WBCs % Cancelled, Fluid Neutrophils Cancelled, Fluid Lymphocytes Cancelled, Fluid Monocytes Cancelled, Fluid Plasma Cells Cancelled, Fluid Macrophages Cancelled, Fld Mesothelial Cells Cancelled, Fluid Other Cells Cancelled, Fl Pathologist Comment Cancelled, Fluid Comment 2 Cancelled Imaging Radiology Impression Elbow X-Ray 04/17/25 14:33 IMPRESSION: No fracture or dislocation. Degenerative changes at the elbow joint. Reading Location: [facility] Assessment & Plan Assessment/Plan (1) Septic arthritis of elbow, left: PLAN: Patient seen and examined. X-rays and lab work reviewed. Dr. Wise had previously attempted a left elbow arthrocentesis but was unsuccessful likely given patient's body habitus. I recommended a repeat arthrocentesis of the left elbow. She was amenable and verbal consent was obtained. I also recommended a left wrist arthrocentesis given the developing rash and joint pain in the setting of suspected left septic elbow. She was also amenable to left wrist arthrocentesis. Informed consent was obtained. Procedure: Left elbow arthrocentesis Verbal informed consent obtained. Soft spot between the radial head, lateral epicondyle and olecranon was palpated. Skin was prepped with chlorhexidine. 22-gauge needle was then inserted into the left elbow joint. 2 cc of turbid fluid was aspirated. Needle was withdrawn and Band-Aid applied. Patient tolerated the procedure well without apparent complication. Procedure: Left wrist arthrocentesis Verbal consent obtained. Skin was prepped with chlorhexidine. Just distal to Jorge Luis's tubercle, a 22-gauge needle was inserted in the dorsal wrist skin piercing the capsule. Dry aspirate. Needle is withdrawn and Band-Aid applied. Patient tolerated the procedure well without apparent complication. Fluid from the left elbow was sent for cell count and culture. No crystals were sent due to limited yield. I discussed with the lab and at 1815 at the white count was too high to be measured and needed diluted. Patient's rash appears to be worsening and I made the decision to proceed with left elbow I&D with possible left wrist I&D. I will plan to perform a repeat arthrocentesis in the OR and low threshold to perform I&D of the left wrist if this was also concerning for infection. I reviewed the risks, benefits, alternatives to the procedure. Risks include but are not limited to bleeding, persistent infection, neurovascular injury, instability, stiffness, need for additional surgery, injury to cartilage, risk of anesthesia, loss of life or limb, DVT or PE. Patient expressed understanding of these risks agreed to proceed with surgery. We will plan to proceed with surgery emergently tonight given the patient's clinical status and emergent nature of septic arthritis. Patient has been n.p.o. since midnight. Blood cultures ordered. Cultures pending of left elbow arthrocentesis. Broad-spectrum antibiotics planned.
--- NOTE | 2025-04-17 18:45 | LOO_PTH ---
PATIENT: STEPHANIE HERNANDEZ LOC: MS3 U#:[id number] AGE/SX: 79/F [place] [facility] [place]17/[address]: Dr. Evita Antonio MD : 1945 BED: 1 DIS: 04/22/2025 SPEC #: [id number] RECD: 04/18/25 10:08 STATUS: ROLANDO PERRIN #: [id number] MELI: 04/17/25 18:[address]: Malachi Batres DEPT: SURGICAL PATHOLOGY RECD BY: Sonali Singh ENTERED: 04/18/25 10:09 SP TYPE: LOOSE BODY OTHR DR: Dr. Sumeet Navarrete, DO Dr. Tirso Dewey Dr., DO Dr. Quincy Momin MD Tissues: LOOSE BODY Procedures: Decalcification bone/plaque Surgery Specimen Level III HEADER OPERATION: Left Elbow Irrigation and Debridement, Left wrist irrigation PRE-OP DIAGNOSIS: Leukocytosis, History of diabetes mellitus, Septic arthritis of elbow, left TISSUE SUBMITTED: left Elbow Loose Body MICROSCOPIC DIAGNOSIS A. Elbow, left, loose body, irrigation and debridement: - Cartilage with reactive/degenerative change consistent with loose body. MICROSCOPIC DESCRIPTION Slides are reviewed. GROSS DESCRIPTION A. Received in formalin labeled with the patient's name and date of . Designated as left elbow loose body is a 1.0 x 0.7 x 0.2 cm aggregate of a núñez-white, firm, possible bone. Entirely submitted in 1 cassette, following brief decalcification. ND 04/18/2025 CPT: 26650,66259
[2025-04-17 18:58] LABS: Total Cell Count Synovial Fld 54.0300 10^3/uL (0.000-0.000); WBC / Synovial Fluid 53.9600 10^3/uL (0.000-0.002)
[2025-04-17 19:16] LABS: AST(SGOT) 20 U/L (<=31); Alanine Aminotransfer ALT/SGPT 10 U/L (<=34); Albumin, Serum 4.1 g/dL (3.4-4.8); Alkaline Phosphatase 60 U/L (35-104); Bilirubin, Direct 0.23 mg/dL (0.00-0.30); Globulin 3.6 g/dL (2.2-4.2)
[2025-04-17] MEDS: Bupiv/Epi 0.25% 30 ML Vial (19:28)
--- NOTE | 2025-04-17 19:59 | PCM.OPRPT ---
Operative Report (Standard) Operative Information Date of Procedure: 04/17/25 Pre-Operative Diagnosis: 1. Left elbow septic arthritis 2. Concern for left wrist septic arthritis Post-Operative Diagnosis: 1. Left elbow septic arthritis 2. Left wrist effusion, presumed left wrist septic arthritis Surgery/Procedure Performed: 1. Irrigation and debridement left elbow 2. 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 Type of Anesthesia: General RN Documented Start/Stop Times: Operation Date: 04/17/25 18:45 Case Time Anesthesia Start 04/17/25 18:51 Into Room 04/17/25 18:51 Procedure Start 04/17/25 19:16 Procedure End 04/17/25 19:54 Procedure Start Time: 19:16 Procedure Stop Time: 19:54 Select all DRAINS/GRAFTS/IMPLANTS that apply: None Estimated Blood Loss: 100 cc Specimen collected: Yes Description of specimen(s) removed: Aerobic anaerobic cultures left elbow synovial fluid Aerobic and anaerobic cultures left wrist synovial fluid Left elbow loose body Description of surgery: Patient was identified in the preoperative holding her by name, medical record number, and date of . The operative extremity is marked. All questions answered to the patient's satisfaction. At time of her procedure, patient brought the op suite positioned supine standard operating table. General anesthesia was induced and endotracheal tube placed. We then spun the bed 90 degrees. Hand table was attached to patient's left side. All bony prominences were well-padded. We prepped and draped the left upper extremity in a normal, sterile orthopedic fashion. A timeout was performed confirming the side, site, and operation be performed. No concerns voiced limited to proceed with surgery. Emergency department vancomycin was continued intraoperatively and Zosyn was also given intraoperatively for broad-spectrum antibiotic coverage. I then turned my attention to the left wrist first. An arthrocentesis was performed through a dorsal approach in standard fashion. Turbid fluid was aspirated consistent with septic arthritis. I made a decision to proceed with a left wrist I&D along with the left elbow. I first applied touch to the elbow. Lateral approach was utilized. 4 cm skin incision was made over the radiocapitellar joint. Full-thickness skin flaps were developed down to level of fascia. The fascia of the extensor digitorum commonness was then open for an EDC split approach. The arthrotomy was then performed in longitudinal fashion and turbid fluid was encountered. A loose body was immediately seen the radiocapitellar joint was removed and sent for specimen. New cultures were obtained of the turbid synovial fluid. Visualized synovitis was debrided. I then irrigated 3 L normal saline through the left elbow with cystoscopy tubing. Arthrotomy and fascial closure was performed with a running, locking 0 PDS suture. Dermis was reapproximated 2-0 PDS suture and skin reapproximated with a running baseball stitch for 2-0 nylon suture. To my attention of the wrist. Limited dorsal approach to the wrist was made in line with Jorge Luis's tubercle approximately 2 cm in length. Extensor retinaculum was identified and opened to identify the EPL and the third compartment. EPL was swept ulnarly and the floor of the fourth compartment was then opened and a longitudinal arthrotomy was made. Scapholunate interosseous ligament was identified and turbid fluid was encountered. Cultures were taken. Limited synovitis was debrided. At the then irrigated with 3 L normal saline through the wrist joint with cystoscopy tubing. Hemostasis was good at this point. The arthrotomy was closed with a interrupted [id number] 0 PDS suture. The retinaculum was closed watertight with interrupted [id number] 2-0 PDS suture. Dermis was reapproximated buried 2-0 PDS suture in a running baseball stitch utilizing 3-0 nylon suture was used to reapproximate the skin. Field blocks were administered with 20 cc total quarter percent bupivacaine with epinephrine. Bulky sterile compression dressing was applied. Patient is placed in a simple sling. She tolerated the procedure well without apparent complication. She was safely extubated operative suite. She was transferred to her rsaltese and subsequent to PACU in stable condition. Postoperative plan: Patient will be admitted under the service of the hospitalist. Plan for broad-spectrum antibiotics with vancomycin and Zosyn currently ordered. Intraoperative and ER cultures are pending. Anticipate need for infectious disease consultation. Will follow. Oxycodone ordered for pain management. Okay to start anticoagulant postoperative day #1. Okay for gentle range of motion left elbow wrist and hand. Sling for comfort. Elevation for edema control. Surgical Findings: Turbid fluid left elbow and left wrist consistent with septic arthritis. Complications Complications: No Admit VTE Documentation VTE Present on Admission: No VTE Mechan Device Prophylaxis: SCD's VTE Pharm Prophylaxis ordered?: Yes
--- NOTE | 2025-04-17 20:18 | PCM.POST.ANE ---
Anesthesia: Postop Eval I Current Vital Signs Temperature: 98.3 F Pulse Rate: 99 Blood Pressure: 148/50 Respiratory Rate: 16 Pulse Ox: 94 Oxygen Delivery Method: Nasal Cannula Oxygen Flow Rate (L/min): 4 Assessment Airway patent: Yes Spontaneous unlabored respirations: Yes Mental status: Awake and Calm nausea: No Vomiting: No Anesthesia Complication: No Fluid Hydration Crystalloid volume administer (ml): 500 Total IV fluid infused: 500 Progress Note Anesthesia document: Postop Eval 1 completed: Yes
--- NOTE | 2025-04-17 21:01 | PCM.POSTANE2 ---
Anesthesia Postop Eval I Sum Postop Eval Completion status Anesthesia document: Postop Eval 1 completed: Yes Anesthesia Postop Eval I Summary Anesthesia Postop Eval I Summary: Anesthesia Postop Eval I: Assessment Summary Airway patent Yes 04/17/25 20:19 Spontaneous unlabored Yes 04/17/25 20:19 respirations Mental status Awake,Calm 04/17/25 20:19 nausea No 04/17/25 20:19 Vomiting No 04/17/25 20:19 Anesthesia Postop Eval I: Fluid Summary Crystalloid volume administer 500 04/17/25 20:19 (ml) Colloids volume administered ( ml) Blood Product volume administered (ml) Total IV fluid infused 500 04/17/25 20:19 Anesthesia Postop Eval I: Summary Notes Anesthesia Complication No 04/17/25 20:19 Anesthesia Complication Comment: Post-operative progress note Anesthesia: Postop Eval II Evaluation Mental status: Awake and Calm Pain Level: 0 nausea: No Vomiting: No Complications Anesthesia Complication: No
[2025-04-17 21:38] LABS: AUTO B FLUID DILUENT BKGD CT WBC <0.1 RBC <0.01 (W<.1,R<.01)
[2025-04-17 21:39] LABS: Color / Synovial Fluid Red (Pale Yellow); Source / Synovial Fluid LEFT ELBOW
[2025-04-17 21:40] LABS: Appearance /Synovial Fluid Turbid (CLEAR); Body Fluid QC Type(s) BF2Q
[2025-04-17 22:21] LABS: Monocyte /Synovial Fluid 11 %
--- OUTSIDE RECORDS SUMMARY | 2025-04-17 23:24 | XMS RPT_ITS | CCD ---
Author Organization [facility] Care Team Providers Care Partner Alliance Manager Name Role Phone CADEN SAUCEDA (FEL) Unavailable Unavailab CADEN Yoo (FEL) Unavailable Unavailab Dr. Timbo Urrutia Emergency Provider Dr. Laura Bowden Primary Care Provider Dr. Enma Otoole Admit Provider Dr. Enma Otoole Other Provider Dr. Caden Roy Other Provider Dr. Dennise Batres Attending Provider Unavailable Dr. Dennise Batres Other Provider Unavailable Dr. Caden Roy Attending Provider Dr. Tirso Friend Other Provider Dr. Tirso Friend Attending Provider Dr. Patric Polanco Attending Provider Damon JOLLEY PAAbelino Diego Attending Provider Dr. Tirso Friend Referring Provider Dr. Laura Bowden Referring Provider Dr. Timbo Snowden Emergency Provider Dr. Laura Bowden Primary Care Provider Dr. Enma Otoole Admit Provider Dr. Enma Otoole Other Provider Dr. Caden Roy Other Provider Dr. Dennise Batres Attending Provider Unavailable Dr. Dennise Batres Other Provider Unavailable Dr. Caden Roy Attending Provider Dr. Tirso Friend Referring Provider Dr. Tirso Friend Other Provider Dr. Tirso Friend Attending Provider Dr. Patric Polanco Attending Provider KHAI Tenorio Attending Provider Dr. Laura Bowden Referring Provider Unavailable Primary Care Provider Unavailabl e Unavailable Primary Care Provider Unavailthomas e Dandy Bueno Attending Unavailable Dennise, Laura Primary Care Unavailable Caden Roy Consulting Unavailable Enma Otoole Admitting Unavailable Dennise, Laura Primary Care Unavailable Tirso Friend Attending Unavailable Enma Otoole Consulting Unavailable Dennise Batres Consulting Unavailable Caden Roy Consulting Unavailable Caden Roy Attending Unavailable Enma Otoole Admitting Unavailable Dennise, Laura Primary Care Unavailable Enma Otoole Consulting Unavailable Dennise Batres Consulting Unavailable Tirso Friend Consulting Unavailable Tirso Friend Attending Unavailable Patric Polanco Attending Unavailable Tirso Friend Referring Unavailable Dennise Batres Attending Unavailable Caden Roy Attending Unavailable Dennise, Laura Primary Care Unavailable Brandie Tenorio Attending Unavailable Enma Otoole Attending Unavailable Brandie Tenorio Attending Unavailable Dennise, Laura Referring Unavailable Dennise, Laura Primary Care Unavailable Caden Roy Attending Unavailable Dennise, Laura Referring Unavailable Dennise, Laura Primary Care Unavailable Damon JOLLEY Brandie Referring Unavailable Damon JOLLEY Brandie Attending Unavailable Dennise, Laura Primary Care Unavailable DENNISE, LAURA L Referring Unavailable GISELA LIM Referring Unavailable DENNIES, LAURA L Referring Unavailable MARGARITA, JENA A Referring Unavailable MARGARITA, JENA A Referring Unavailable MARGARITA, JENA A Referring Unavailable MARGARITA, JENA A Referring Unavailable MARGARITA, JENA A Referring Unavailable MARGARITA, JENA A Referring Unavailable MARGARITA, JENA A Referring Unavailable MARGARITA, JENA A Referring Unavailable MARGARITA, JENA A Referring Unavailable CANDACE LARRY Attending Unavailabl e MARGARITA, JENA Freitas Referring Unavailable JENA AVILA Referring Unavailable LAURA BOWDEN Primary Care Unavailable Dr. Laura Bowden DO Primary Care Provider [phone] Dr. Sanford Wise MD Emergency Provider [phone] Dr. Tirso Vazquez DO Attending Provider Medications Current Medications Medication Drug Class(es) Dates Sig (Normalized) Sig (Original) acetaminophen 325 mg / HYDROcodone bitartrate 5 mg oral tablet (6 sources) Opioid Agonist Start: 10-19-2023 take 1 tablet by mouth every six hours as needed for pain Hydrocodone-Acetam inophen 5-325 mg tablet Active 1 {tbl} PO EVERY 6 HOURS NEEDED as needed for Pain 10 3 0 January 12, 2024 Injury due to fall Neurapraxia of right upper extremity Contusion of right elbow, initial encounter Contusion of right wrist, initial encounter Contusion of right shoulder Unspecified fall, initial encounter Contusion of right elbow, initial encounter Contusion of right wrist, initial encounter Contusion of right shoulder, initial encounter Start: 10-19-2023 take 1 tablet by tirso th every six hours as needed Hydrocodone-Acetaminophen Active 1 TABLE T PO EVERY 6 HOURS NEEDED 10 3 January 12, 2024 albuterol 0.83 mg/ml inhalation solution (11 sources) beta2-Adrenergic Agonist albuter ol (PROVENTIL) 2.5 mg /3 mL (0.083 %) nebulizer solution Use 2.5 mg via nebulizer. 0 Active Comment on above: Use 2.5 mg via nebul izer. amoxicillin 875 mg / clavulanate 125 mg oral tablet (4 sources) Penicillin-class Antibacterial Start: 10-19-2023 Amoxicillin-Pot Clavulanate 875-125 mg tablet Active 1 {tbl} PO Q12H 10 5 0 October 19, 2023 1:00am Start: 10-19-2023 take 1 tablet by tirso th every twelve hours Amoxicillin-Pot Clavulanate Active 1 TABLET PO Q12H 10 5 October 19, 2023 1:00am aspirin 81 mg delayed release oral tablet (16 sources) Platelet Aggregation Inhibitor, Nonsteroidal Anti-inflammatory Drug Start: 10-15-2023 take 1 tablet by mouth once daily Aspirin (Adult Aspirin Regimen) 81 mg tablet,delayed release (DR/EC) Active 81 mg PO DAILY October 15, 2023 1:00am Blood thinner take 1 tablet by mouth once rody y aspirin 325 mg tablet Take 325 mg by mouth once daily. 0 Active Comment on above: Take 325 mg by mouth once daily. atorvastatin 20 mg oral tablet (5 sources) HMG-CoA Reductase Inhibitor Start: 4 take 1 tablet by mouth once daily Atorvastatin 20 mg tablet Active 20 mg PO DAILY October 15, 2023 1:00am cholesterol Calcium Carbonate / vitamin D3 (11 sources) CALCIUM CARBONATE/VITAMIN D3 (VITAMIN D-3 ORAL) Take by mouth. 0 Active Comment on above: Take by mouth. carvedilol 25 mg oral tablet (16 sources) alpha-Adrenergic Brody, beta-Adrenergic Brody Start: 4 take 1 tablet by mouth every twelve hours Carvedilol 25 mg tablet Active 25 mg PO Q12H October 15, 2023 1:00am Blood pres take 1 tablet by tirso th twice daily at mealtime carvedilol (COREG) 25 mg tablet Take 25 mg by mouth twice daily with meals. 0 Active Comment on above: Take 25 mg by mouth twice daily with meals. cetirizine hydrochloride 10 mg oral tablet (5 sources) Histamine-1 Receptor Antagonist Start: 4 take 1 tablet by mouth once daily Cetirizine 10 mg tablet Active 10 mg PO DAILY October 15, 2023 1:00am Allergies sugar-free cholestyramine resin 4000 mg powder for oral suspension (1 source) Bile Acid Sequestrant Start: 4 Cholestyramine-Aspa rtame (Cholestyramine Light) 4 gram powder in packet Active 1 NMA PO DAILY October 15, 2023 1:00am cholesterol orally daily; Cholestyramine-Aspartam e (Cholestyramine Light) 4 gram powder in packet (3 sources) Start: 4 Cholestyramine-Aspa rtame (Cholestyramine Light) 4 gram powder in packet Active 1 EACH PO DAILY October 15, 2023 1:00am orally daily; Start: 10-15-2023 Cholestyramine -Aspartame (Cholestyramine Light) 4 gram powder in packet Active 1 EACH PO DAILY October 15, 2023 12:00am orally daily; Cholestyramine-Aspartame [Cholestyramine-Aspartame 4 Gram Oral Powder For Susp In A Packet] (Cholestyramine-Aspartame 4 Gram Oral Powder For Susp ) 4 gram powder in packet (1 source) Start: 10-15-2023 Cholestyramine-Aspartame [Cholestyramine-Aspartame 4 Gram Oral Powder For Susp In A Packet] (Cholestyramine-Aspartame 4 Gram Oral Powder For Susp ) 4 gram powder in packet Active 1 EACH PO DAILY October 15, 2023 12:00am orally daily; ciprofloxacin 3 mg/ml / dexamethasone 1 mg/ml otic suspension (11 sources) Corticosteroid , Quinolone Antimicrobial Start: 08-29-2017 ciprofloxacin-dexamethason e (CIPRODEX) otic suspension Indications: Conductive hearing loss of left ear, unspecified hearing status on contralateral side Use 4 Drops in the left ear twice daily. 1 Bottle 3 08/29/2017 Active Comment on above: Use 4 Drops in the l eft ear twice daily. COQ10, LIPOSOMAL UBIQUINOL, ORAL (11 sources) COQ10, LIPOSOMAL UBIQUINOL, ORAL Take by mouth. 0 Active Comment on above: Take by mouth. empagliflozin 25 mg oral tablet (5 sources) Sodium-Glucose Cotransporter 2 Inhibitor Start: 10-15-2023 take 1 tablet by mouth once daily Empagliflozin (Jardiance) 25 mg tablet Active 25 mg PO DAILY October 15, 2023 1:00am Glucose control ergocalciferol 1.25 mg oral capsule (5 sources) Provitamin D2 Compound Start: 10-15-2023 Ergocalciferol (Vitamin D2) 1,250 mcg (50,000 unit) capsule Active 1250 ug PO DAILY October 15, 2023 1:00am Vit D escitalopram 20 mg oral tablet (16 sources) Serotonin Reuptake Inhibitor Start: 10-15-2023 take 1 tablet by mouth once daily Escitalopram Oxalate 20 mg tablet Active 20 mg PO DAILY October 15, 2023 1:00am Anxiety Comment on above: Take 20 mg by mouth once daily. fenofibrate 145 mg oral tablet (16 sources) Peroxisome Proliferator Receptor alpha Agonist Start: 10-15-2023 take 1 tablet by mouth once daily Fenofibrate Nanocrystallized 145 mg tablet Active 145 mg PO DAILY October 15, 2023 1:00am cholesterol FENOFIBRATE MICR ONIZED 145 MG TAB levothyroxine sodium 0.05 mg oral tablet (16 sources) l-Thyroxine Start: 10-15-2023 take 1 tablet by mouth once daily Levothyroxine 50 mcg tablet Active 50 ug PO DAILY October 15, 2023 1:00am thyroid Levothyroxine 50 mcg cap Take by mouth. 0 Active Comment on above: Take by mouth. lisinopril 40 mg oral tablet (11 sources) Angiotensin Converting Enzyme Inhibitor take 1 tablet by mouth once daily lisinopril (ZESTRIL, PRINIVIL) 40 mg tablet Take 40 mg by mouth once daily. 0 Active Comment on above: Take 40 mg by mouth once daily. metFORMIN hydrochloride 1000 mg / SITagliptin 50 mg oral tablet (16 sources) Biguanide, Dipeptidyl Peptidase 4 Inhibitor Start: 4 Sitagliptin Phos-Metformin (Janumet) 50-1,000 mg tablet Active 1 {tbl} PO DAILY October 15, 2023 1:00am Glucose sitaGLIPtin-metF ORMIN (JANUMET XR) 50-1,000 mg TM24 Take by mouth. 0 Active Comment on above: Take by mouth. 24 hr mirabegron 25 mg extended release oral tablet (5 sources) beta3-Adrenergic Agonist Start: 4 take 1 tablet by mouth every twenty-four hours Mirabegron (Myrbetriq) 25 mg tablet extended release 24 hr Active 25 mg PO Q24H October 15, 2023 1:00am Bladder montelukast 10 mg oral tablet (5 sources) Leukotriene Receptor Antagonist Start: 4 take 1 tablet by mouth once daily Montelukast 10 mg tablet Active 10 mg PO DAILY October 15, 2023 1:00am Wheezing 24 hr niacin 1000 mg extended release oral tablet (16 sources) Nicotinic Acid Start: 4 take 1 tablet by mouth once daily Niacin 1,000 mg tablet extended release 24 hr Active 1000 mg PO DAILY October 15, 2023 1:00am cholesterol Comment on above: Take 1,000 mg by tirso th daily at bedtime. 24 hr oxybutynin chloride 10 mg extended release oral tablet (16 sources) Cholinergic Muscarinic Antagonist Start: 4 take 1 tablet by mouth once daily Oxybutynin Chloride 10 mg tablet extended release 24hr Active 10 mg PO DAILY October 15, 2023 1:00am Bladder Comment on above: Take 10 mg by mouth once daily. simvastatin 40 mg oral tablet (11 sources) HMG-CoA Reductase Inhibitor take 1 tablet by mouth once daily at bedtime simvastatin (ZOCOR) 40 mg tablet Take 40 mg by mouth daily at bedtime. 0 Active Comment on above: Take 40 mg by mouth daily at bedtime. 26 ml ustekinumab 5 mg/ml injection (11 sources) Interleukin-12 Antagonist, Interleukin-23 Antagonist ustekinumab (STELARA) 130 mg/26 mL injection Inject intravenously. 0 Active Comment on above: Inject intravenously . 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)] Onset: 06-07-2024 Chronic Diabetes mellitus with complications (3 sources) Type 2 diabetes mellitus with other diabetic neurological complication; Translations: [Type 2 diabetes mellitus with diabetic chronic kidney disease] Onset: 06-13-2023 Chronic Diseases of white blood cells (2 sources) Leukocytosis; Translations: [Elevated white blood cell count, unspecified] 04-17-2025 Chronic Disorders of lipid metabolism (2 sources) Mixed hyperlipidemia; Translations: [Hyperlipidemia, unspecified] Onset: 06-13-2023 Chronic E Codes: Fall (2 sources) Falling injury; Translations: [Unspecified fall, initial encounter] 01-12-2024 Episodic Essential hypertension (1 source) Essential (primary) hypertension; Translations: [Unspecified essential hypertension] Onset: 06-13-2023 Chronic Infective arthritis and osteomyelitis (except that caused by tuberculosis or sexually transmitted disease) (2 sources) Elbow pyogenic arthritis; Translations: [Pyogenic arthritis, unspecified] 04-17-2025 Episodic Nutritional deficiencies (2 sources) Vitamin D deficiency, unspecified; Translations: [Avitaminosis D] Onset: 06-13-2023 Chronic Other connective tissue disease (20 sources) Muscle weakness; Translations: [Muscle weakness (generalized)] Onset: 01-19-2024 01-19-2024 Episodic Other ear and sense organ disorders (1 source) Conductive hearing loss, unilateral, left ear, with unrestricted hearing on the contralateral side; Translations: [Conductive hearing loss, unilateral, left ear, with unrestricted hearing on the contralateral side] Onset: 08-29-2017 Chronic Other inflammatory condition of skin (1 source) Psoriasis vulgaris; Translations: [Psoriasis vulgaris] Onset: 06-07-2024 Chronic Other inflammatory condition of skin (1 source) Arthropathic psoriasis, unspecified; Translations: [Psoriatic arthropathy (HCC)] Onset: 06-13-2023 Chronic Other injuries and conditions due to external causes (2 sources) Injury of nerve of upper extremity; Translations: [Injury of unspecified nerve at shoulder and upper arm level, right arm, initial encounter] 01-12-2024 Episodic Other liver diseases (5 sources) Elevated liver enzymes level; Translations: [Abnormal levels of other serum enzymes] 10-15-2023 Episodic Other nervous system disorders (2 sources) Other chronic pain; Translations: [Chronic pain of right knee] Onset: 01-19-2024 Chronic Other nervous system disorders (20 sources) Finding related to ability to move; Translations: [Other abnormalities of gait and mobility] Onset: 01-19-2024 01-19-2024 Episodic Other non-traumatic joint disorders (2 sources) Pain in elbow; Translations: [Pain in unspecified elbow] 04-17-2025 Episodic Other nutritional; endocrine; and metabolic disorders (5 sources) Acquired hyperbilirubinemia; Translations: [Other disorders of bilirubin metabolism] 10-15-2023 Chronic Other nutritional; endocrine; and metabolic disorders (5 sources) Other disorders of bilirubin metabolism; Translations: [Jaundice, unspecified, not of ] Onset: 11-02-2023 10-15-2023 Chronic Other nutritional; endocrine; and metabolic disorders (2 sources) H/O: diabetes mellitus; Translations: [Personal history of other endocrine, nutritional and metabolic disease] 04-17-2025 Episodic Residual codes; unclassified (4 sources) Acquired absence of other specified parts of digestive tract; Translations: [Other postprocedural status] 10-25-2023 Episodic Superficial injury; contusion (7 sources) Contusion of right elbow; Translations: [Contusion of right elbow, initial encounter] Onset: 01-18-2024 01-12-2024 Episodic Thyroid disorders (1 source) Hypothyroidism, unspecified; Translations: [Unspecified hypothyroidism] Onset: 06-13-2023 Chronic Past or Other Problems Problem Classification Problem Date Documented Da te Episodic/Chronic Other connective tissue disease (1 source) Muscle weakness (generalized); Translations: [Muscle weakness (generalized)] Onset: 01-19-2024 Episodic Other gastrointestinal disorders (1 source) Diarrhea, unspecified; Translations: [Diarrhea of presumed infectious origin] Onset: 09-09-2023 Episodic Other liver diseases (5 sources) Abnormal levels of other serum enzymes; Translations: [Other nonspecific abnormal serum enzyme levels] Onset: 11-02-2023 10-15-2023 Episodic Other lower respiratory disease (1 source) Dyspnea, unspecified; Translations: [Dyspnea, unspecified] Onset: 06-17-2023 Episodic Other nervous system disorders (1 source) Other abnormalities of gait and mobility; Translations: [Other abnormalities of gait and mobility] Onset: 01-19-2024 Episodic Other non-traumatic joint disorders (20 sources) Pain in right knee; Translations: [Pain in joint, lower leg] Onset: 01-19-2024 01-19-2024 Episodic Other non-traumatic joint disorders (1 source) Pain in left knee; Translations: [Chronic pain of left knee] Onset: 01-19-2024 Episodic Unclassified (1 source) Encounter for screening for other disorder; Translations: [Encounter for screening for other disorder] Onset: 08-29-2017 Episodic Results Test Name Value Interpretation Reference Range Facility Absolute lymphocyte countOrd ered By: Sanford Wise on 04-17-2025 Lymphocytes Auto (Unsp spec) [#/Vol] 1.04 10*3/uL 0.83-4.51 [facility] Absolute neutrophil countOrd ered By: Sanford Wise on 04-17-2025 Neutrophils (Bld) [#/Vol] 11.2 10*3/uL High 2.0-7.7 [facility] Anion gap in Serum or Plasma Ordered By: Sanford Wise on 04-17-2025 Anion gap [Moles/Vol] 19 mmol/L High 5-15 [facility] Automated lymphocyte count a s percentage of total leukocytesOrdered By: Sanford Wise on 04-17-2025 Lymphocytes/100 WBC Auto (Unsp spec) 6.2 % Low 19-41 [facility] BUN/creatinine ratioOrdered By: Sanford Wise on 04-17-2025 Urea nitrogen/Creatinine [Mass ratio] 10.9 mg/mg 10-20 [facility] Basophil percentageOrdered B y: Sanford Wise on 04-17-2025 Basophils/100 WBC (Bld) 0.7 % 0-1 [facility] Blood manual differential co mment interpretation (narrative result)Ordered By: Sanford Wise on 04-17-2025 Manual differential comment Yusuf (Bld) [Interp] SCANNED [facility] Carbon dioxide, total [Moles /volume] in Central venous bloodOrdered By: Sanford Wise on 04-17-2025 CO2 [Moles/Vol] 19.1 mmol/L Low 21.0-32.0 [facility] Chloride assayOrdered By: Darwin Wise on 04-17-2025 Chloride [Moles/Vol] 95 mmol/L Low 98-108 [facility] Eosinophil percentageOrdered By: Sanford Wise on 04-17-2025 Eosinophils/100 WBC (Bld) 17.9 % High 0-5 [facility] Erythrocyte distribution wid th ratioOrdered By: Sanford Wise on 04-17-2025 Erythrocyte distribution width (RBC) [Ratio] 12.8 % 11.6-14.6 [facility] Erythrocyte distribution wid th standard deviationOrdered By: Sanford Wise on 04-17-2025 Erythrocyte distribution width (RBC) [Ratio] 43.8 fl 35.1-43.9 [facility] Erythrocyte sedimentation ra teOrdered By: Sanford Wise on 04-17-2025 ESR (Bld) [Velocity] 51 mm/h High 0-30 [facility] Glomerular filtration rate ( GFR) estimation/1.73 sq m using serum, plasma, or whole bOrdered By: Sanford Wise on 04-17-2025 GFR/1.73 sq M.predicted among non-blacks MDRD (S/P/Bld) [Vol rate/Area] 59 mL/min/{1.73_m2} Low >60 [facility] Comment on above: mL/min/1.73m2 CKD-EP I Creatinine Equation (2020) Hematocrit Auto (Bld) [Volum e fraction]Ordered By: Sanford Wise on 04-17-2025 Hematocrit (Bld) [Volume fraction] 38.9 % 37-47 [facility] Hemoglobin measurementOrdere d By: Sanford Wise on 04-17-2025 Hemoglobin (Bld) [Mass/Vol] 14.0 g/dL 12.0-15.0 [facility] Immature granulocytes/100 WB C Auto (Bld)Ordered By: Sanford Wise on 04-17-2025 Immature granulocytes/100 WBC (Bld) 0.500 % 0.0-0.9 [facility] Comment on above: IG% - Immature Granu locytes (promyelocytes, myelocytes and metamyelocytes) > 1% indicates that a LEFT SHIFT is Present. MCV (mean corpuscular volume ) determinationOrdered By: Sanford Wise on 04-17-2025 MCV (RBC) [Entitic vol] 93.7 fL 81-99 [facility] Mean corpuscular hemoglobin (MCH) determinationOrdered By: Sanford Wise on 04-17-2025 MCH (RBC) [Entitic mass] 33.7 pg High 27.0-32.0 [facility] Mean corpuscular hemoglobin concentration (MCHC) determinationOrdered By: Sanford Wise on 04-17-2025 MCHC (RBC) [Mass/Vol] 36.0 g/dL 32-36 [facility] Mean platelet volume determi nationOrdered By: Sanford Wise on 04-17-2025 Platelet mean volume (Bld) [Entitic vol] 12.8 fL High 6.2-12.0 [facility] Monocyte percentageOrdered B y: Sanford Wise on 04-17-2025 Monocytes/100 WBC (Bld) 8.0 % 0-10 [facility] Neutrophil percentageOrdered By: Sanford Wise on 04-17-2025 Neutrophils/100 WBC (Bld) 66.7 % 47-70 [facility] Nucleated red blood cell per centageOrdered By: Sanford Wise on 04-17-2025 Nucleated RBC/100 WBC (Bld) [Ratio] 0 % 0-5 [facility] Platelet countOrdered By: Darwin Wise on 04-17-2025 Platelets (Bld) [#/Vol] 165 10*3/uL 150-450 [facility] Potassium measurement (mass/ volume)Ordered By: Sanford Wise on 04-17-2025 Potassium (Unsp spec) [Mass/Vol] 3.9 mmol/L 3.3-5.1 [facility] Comment on above: Hemolysis present, R esults could be affected. RBC Auto (Bld) [#/Vol]Ordere d By: Sanford Wise on 04-17-2025 RBC (Bld) [#/Vol] 4.15 10*6/uL Low 4.2-5.4 [facility] Serum creatinine measurement (mass/volume)Ordered By: Sanford Wise on 04-17-2025 Creatinine [Mass/Vol] 0.98 mg/dL 0.70-1.20 [facility] Serum glucose measurement (m ass/volume)Ordered By: Sanford Wise on 04-17-2025 Glucose [Mass/Vol] 225 mg/dL High 70-99 [facility] Serum or plasma C reactive p rotein measurement (mass/volume)Ordered By: Sanford Wise on 04-17-2025 CRP [Mass/Vol] 119.00 mg/L High 0.0-3.0 [facility] Serum or plasma calcium esthela urement (mass/volume)Ordered By: Sanford Wise on 04-17-2025 Calcium [Mass/Vol] 9.5 mg/dL 7.6-11.0 [facility] Serum or plasma urea nitroge n measurement (mass/volume)Ordered By: Sanford Wise on 04-17-2025 Urea nitrogen [Mass/Vol] 11 mg/dL 4-19 [facility] Serum or plasma uric acid me asurement (mass/volume)Ordered By: Sanford Wise on 04-17-2025 Urate [Mass/Vol] 7.8 mg/dL High 2.6-6.0 [facility] Comment on above: The drugs N-Acetylcy steine and Metamizole may falsely depress this assay. Sodium levelOrdered By: Sanford Wise on 04-17-2025 Sodium [Moles/Vol] 133 mmol/L 133-145 [facility] White blood cell (WBC) count Ordered By: Sanford Wise on 04-17-2025 WBC (Bld) [#/Vol] 16.8 10*3/uL High 4.4-11.0 [facility] 25(OH)D3 SerPl-ncon 2023 25-hydroxyvitamin D3 [Mass/Vol] 39.0 ng/mL Normal 30.0-100.0 [facility] Comment on above: Order Comment: Brenda garcia Type: BLOOD SPECIMEN Ordering Facility: [facility] Address: [address] [place], [place] [address] [address] Result Comment: Defi ciency\X09\Less than 20 ng/mL Insufficiency\X09\20 - Less than 30 ng/mL Sufficiency\X09\30 - 100 ng/mL Performed By: #### 2 4323-8, 3015-12, 1988-12 #### [facility] CLIA [id number] [address] [place] [address] OF JOSÉ LUIS #### [id number] #### [facility] CLIA [id number] [address] [place] [address] STATES OF [facility] CLIA [id number] [address] [place] [address] [place] OF [place] #### [id number] #### [facility] CLIA [id number] [address] [place] [address] OF JOSÉ LUIS ALBUMIN/CREATININE RATIO, UR INEon 06-07-2024 Albumin DL <= 20 mg/L (U) [Mass/Vol] 28.0 mg/L High 0.0-19.0 [facility] Comment on above: Order Comment: Speci radha Type: BLOOD SPECIMEN Ordering Facility: [facility] Address: [address] [place], [place] [address] [place], [place] [address] Performed By: #### 2 4323-8, 3015-12, 1988-12 #### [facility] CLIA [id number] [address] [place] [address] #### 98796-8 #### [facility] CLIA [id number] [address] [place] [address] [place] [facility] CLIA [id number] [address] [facility] [address] [place] [address] [place] #### 46986-3 #### [facility] CLIA [id number] [address] [place] [address] [place] Albumin/Creatinine (U) [Mass ratio] 33 mg/g High <30 [facility] Comment on above: Order Comment: Speci men Type: BLOOD SPECIMEN Ordering Facility: [facility] Address: [address] [place] [address] Result Comment: Adul t Male and Female Nephrotic Criteria: <30 mg/g is considered normal to mildly increased 30-300 mg/g is considered moderately increased >300 mg/g is considered severely increased KDIGO. (2013). KDIGO 2012 Clinical Practice Guideline for the Evaluation and Management of Chronic Kidney Disease. Official Journal of the International Society of Nephrology, 3(1), 1-150. Performed By: #### 2 4323-8, 3015-12, 1988-12 #### [facility] CLIA [id number] [address] [place] [address] [place] #### [id number] #### [facility] CLIA [id number] [address] [place] [address] [place] [facility] CLIA [id number] [address] [place] [address] [place] #### 77623-9 #### [facility] CLIA [id number] [address] [place], [place] [address] [place] Creatinine (U) [Mass/Vol] 84.4 mg/dL Normal 29.0-226.0 [facility] Comment on above: Order Comment: Speci men Type: BLOOD SPECIMEN Ordering Facility: [facility] Address: [address] [place] [address] Performed By: #### 2 4323-8, 3015-12, 1988-12 #### [facility] CLIA [id number] [address] [place] [address] [place] #### 28336-2 #### [facility] CLIA [id number] [address] [place] [address] [place] [facility] CLIA [id number] [address] [facility] [address] [place] [address] [place] #### 70730-3 #### [facility] CLIA [id number] [address] [place] [address] [place] BLOOD TB SCREENon 06-07-2024 M. tuberculosis tuberculin stim IFN-g Ql (Bld) Negative Normal [facility] Comment on above: Order Comment: Speci men Type: BLOOD SPECIMEN Ordering Facility: [facility] Address: [address] [place] [phone] Performed By: #### 2 4323-8, 3015-12, 1988-12 #### [facility] CLIA [id number] [address] [place], [place] [address] [place] #### 63927-3 #### [facility] CLIA [id number] [address] [place], [place] [address] [place] [facility] CLIA [id number] [address] [place] [address] [place] #### 78604-1 #### [facility] CLIA [id number] [address] [place] [address] [place] MITOGEN MINUS NIL >9.98 Normal >=0.50 [facility] Comment on above: Order Comment: Speci men Type: BLOOD SPECIMEN Ordering Facility: [facility] Address: [address] [place] [address] Performed By: #### 2 4323-8, 3, 1988-12 #### [facility] CLIA [id number] [address] [place] [address] [place] #### 41342-6 #### [facility] CLIA [id number] [address] [place] [address] [facility] CLIA [id number] [address] [address] [place] #### 75637-4 #### [facility] CLIA [id number] [address] [place] [address] [place] TB GAMMA INTERPRETATION Infection with M . tuberculosis complex is unlikely. If latent tuberculosis infection is highly suspected, a negative result does not rule out the infection. Specimens from immunocompromised patients and those <5 years of age may show false negative results. In case of a contact investigation, please repeat 8-12 weeks after a known exposure. Normal [facility] Comment on above: Order Comment: Speci radha Type: BLOOD SPECIMEN Ordering Facility: [facility] Address: [address] [place] [address] Performed By: #### 2 4323-8, 3015-12, 1988-12 #### [facility] CLIA [id number] [address] [place] [address] [place] #### 03788-0 #### [facility] CLIA [id number] [address] [place] [address] [place] [facility] CLIA [id number] [address] [place] [address] [place] #### 37600-5 #### [facility] CLIA [id number] [address] [place] [id number] [place] TB NIL 0.02 IU/mL Normal <=8.00 [facility] Comment on above: Order Comment: Amosi men Type: BLOOD SPECIMEN Ordering Facility: [facility] Address: [address] [place] [address] Performed By: #### 2 4323-8, 3015-12, 1988-12 #### [facility] CLIA [id number] [address] [place] [address] [place] #### 57707-1 #### [facility] CLIA [id number] [address] [place] [address] [place] [facility] CLIA [id number] [address] [facility] [place] [address] [place] [address] [place] #### 03783-1 #### [facility] CLIA [id number] [address] [place], [place] [address] [place] TB1 AG MINUS NIL 0.02 IU/mL Normal <0.35 [facility] Comment on above: Order Comment: Speci men Type: BLOOD SPECIMEN Ordering Facility: [facility] Address: [address] [place] [address] Performed By: #### 2 4323-8, 3015-12, 1988-12 #### [facility] CLIA [id number] [address] [place] [address] [place] #### 96909-2 #### [facility] CLIA [id number] [address] [place] [address] [place] [facility] CLIA [id number] [address] [facility] [place] [address] [place] #### 17005-8 #### [facility] CLIA [id number] [address] [place] [address] [place] TB2 AG MINUS NIL 0.03 IU/mL Normal <0.35 [facility] Comment on above: Order Comment: Speci men Type: BLOOD SPECIMEN Ordering Facility: [facility] Address: [address] [place] [address] Performed By: #### 2 4323-8, 3015-12, 1988-12 #### [facility] CLIA [id number] [address] [place], [place] [address] [place] #### 50773-1 #### [facility] CLIA [id number] [address] [place], [place] [address] [facility] CLIA [id number] [address] [place] [address] [place] #### 40905-9 #### [facility] CLIA [id number] [address] [place] [address] [place] Bilirub Conj SerPl-mCncon Bilirubin.conjugated [Mass/Vol] 0.1 mg/dL Normal 0.0-0.4 [facility] Comment on above: Order Comment: Speci men Type: BLOOD SPECIMEN Ordering Facility: [facility] Address: [address] [place] [phone] Performed By: #### 2 4323-8, 3, 1988-12 #### [facility] CLIA [id number] [address] [place], [place] [address] [place] #### 19154-7 #### [facility] CLIA [id number] [address] [place], [place] [address] [place] OF [facility] CLIA [id number] [address] [place] [address] [place] #### 50865-9 #### [facility] CLIA [id number] [address] [place] [address] [place] CBC W Auto Differential pane l (Bld)on 06-07-2024 Basophils (Bld) [#/Vol] 0.09 10*3/uL Normal <0.11 [facility] Comment on above: Order Comment: Speci men Type: BLOOD SPECIMEN Ordering Facility: [facility] Address: [address] [place] [address] Performed By: #### 2 4323-8, 3, 1988-12 #### [facility] CLIA [id number] [address] [place] [address] [place] #### [id number] #### [facility] CLIA [id number] [address] [place] [address] [place] [facility] CLIA [id number] [address] [facility] [place] [address] [place] [address] [place] #### 88315-4 #### [facility] CLIA [id number] [address] [place] [address] [place] Basophils/100 WBC (Bld) 0.6 % Normal [facility] Comment on above: Order Comment: Speci men Type: BLOOD SPECIMEN Ordering Facility: [facility] Address: [address] [place] [address] Performed By: #### 2 4323-8, 3015-12, 1988-12 #### [facility] CLIA [id number] [address] [place], [place] [address] [place] #### 08331-3 #### [facility] CLIA [id number] [address] [place], [place] [address] [place] [facility] CLIA [id number] [address] [address] [place] #### 23103-4 #### [facility] CLIA [id number] [address] [place] [address] [place] Differential cell count method Nom (Bld) Auto Normal [facility] Comment on above: Order Comment: Speci men Type: BLOOD SPECIMEN Ordering Facility: [facility] Address: [address] [place] [address] Performed By: #### 2 4323-8, 3015-12, 1988-12 #### [facility] CLIA [id number] [address] [place] [address] [place] #### 83345-3 #### [facility] CLIA [id number] [address] [place] [address] [place] [facility] CLIA [id number] [address] [facility] [place] [address] [place] [address] [place] #### 82691-5 #### [facility] CLIA [id number] [address] [facility] [place] [id number] [place] Eosinophils (Bld) [#/Vol] 8.87 10*3/uL High <0.46 [facility] Comment on above: Order Comment: Speci men Type: BLOOD SPECIMEN Ordering Facility: [facility] Address: [address] [place] [address] Performed By: #### 2 4323-8, 3015-12, 1988-12 #### [facility] CLIA [id number] [address] [place] [address] [place] #### 19418-4 #### [facility] CLIA [id number] [address] [place] [address] [place] [facility] CLIA [id number] [address] [facility] [place] [address] [place] #### 81839-3 #### [facility] CLIA [id number] [address] [place] [address] [place] Eosinophils/100 WBC (Bld) 55.2 % Normal [facility] Comment on above: Order Comment: Speci men Type: BLOOD SPECIMEN Ordering Facility: [facility] Address: [address] [place], [place] [address] [address] Performed By: #### 2 4323-8, 3015-12, 1988-12 #### [facility] CLIA [id number] [address] [place] [address] [place] #### 61052-2 #### [facility] CLIA [id number] [address] [place] [address] [place] [facility] CLIA [id number] [address] [facility] [place] [address] [place] [address] [place] #### 09606-6 #### [facility] CLIA [id number] [address] [place] [address] [place] Erythrocyte distribution width (RBC) [Ratio] 14.0 % Normal 11.5-15.0 [facility] Comment on above: Order Comment: Speci men Type: BLOOD SPECIMEN Ordering Facility: [facility] Address: [address] [place] [phone] Performed By: #### 2 4323-8, 3015-12, 1988-12 #### [facility] CLIA [id number] [address] [place], [place] [address] [place] #### 32591-9 #### [facility] CLIA [id number] [address] [place], [place] [address] [place] [facility] CLIA [id number] [address] [facility] [place] [address] [place] [address] [place] #### 63992-6 #### [facility] CLIA [id number] [address] [place] [address] [place] Hematocrit (Bld) [Volume fraction] 38.5 % Normal 36.0-46.0 [facility] Comment on above: Order Comment: Speci men Type: BLOOD SPECIMEN Ordering Facility: [facility] Address: [address] [place] [address] Performed By: #### 2 4323-8, 3015-12, 1988-12 #### [facility] CLIA [id number] [address] [place], [place] [address] [place] #### 53272-5 #### [facility] CLIA [id number] [address] [place], [place] [address] [place] [facility] CLIA [id number] [address] [facility] [address] [place] [address] [place] #### 72577-1 #### [facility] CLIA [id number] [address] [address] [place] Hemoglobin (Bld) [Mass/Vol] 12.9 g/dL Normal 11.5-15.5 [facility] Comment on above: Order Comment: Speci men Type: BLOOD SPECIMEN Ordering Facility: [facility] Address: [address] [place] [address] Performed By: #### 2 4323-8, 3015-12, 1988-12 #### [facility] CLIA [id number] [address] [place] [address] [place] #### 02868-4 #### [facility] CLIA [id number] [address] [place] [address] [place] [facility] CLIA [id number] [address] [place] [address] [place] #### 39722-0 #### [facility] CLIA [id number] [address] [place] [address] [place] Immature granulocytes (Bld) [#/Vol] 0.05 10*3/uL Normal <0.10 [facility] Comment on above: Order Comment: Speci men Type: BLOOD SPECIMEN Ordering Facility: [facility] Address: [address] [place] [address] Performed By: #### 2 4323-8, 3015-12, 1988-12 #### [facility] CLIA [id number] [address] [place] [address] [place] #### 95592-6 #### [facility] CLIA [id number] [address] [place] [address] [place] [facility] CLIA [id number] [address] [facility] [address] [place] [address] [place] #### 80332-8 #### [facility] CLIA [id number] [address] [place] [address] [place] Immature granulocytes/100 WBC (Bld) 0.3 % Normal [facility] Comment on above: Order Comment: Speci men Type: BLOOD SPECIMEN Ordering Facility: [facility] Address: [address] [place] [phone] Performed By: #### 2 4323-8, 3015-12, 1988-12 #### [facility] CLIA [id number] [address] [place] [address] [place] #### 67561-0 #### [facility] CLIA [id number] [address] [place] [address] [place] [facility] CLIA [id number] [address] [place] [address] [place] #### 48757-3 #### [facility] CLIA [id number] [address] [place] [address] [place] Lymphocytes (Bld) [#/Vol] 2.45 10*3/uL Normal 1.00-4.00 [facility] Comment on above: Order Comment: Speci men Type: BLOOD SPECIMEN Ordering Facility: [facility] Address: [address] [place] [phone] Performed By: #### 2 4323-8, 3015-12, 1988-12 #### [facility] CLIA [id number] [address] [place] [address] [place] #### 80370-2 #### [facility] CLIA [id number] [address] [place], [place] [address] [place] [facility] CLIA [id number] [address] [place] [address] [place] #### 65997-4 #### [facility] CLIA [id number] [address] [place] [address] [place] Lymphocytes/100 WBC (Bld) 15.2 % Normal [facility] Comment on above: Order Comment: Speci men Type: BLOOD SPECIMEN Ordering Facility: [facility] Address: [address] [place] [address] Performed By: #### 2 4323-8, 3015-3, 1988-12 #### [facility] CLIA [id number] [address] [place] [address] [place] #### 71987-8 #### [facility] CLIA [id number] [address] [place] [address] [place] [facility] CLIA [id number] [address] [facility] [address] [place] [address] [place] #### 85982-4 #### [facility] CLIA [id number] [address] [place] [address] [place] MCH (RBC) [Entitic mass] 31.9 pg Normal 26.0-34.0 [facility] Comment on above: Order Comment: Speci men Type: BLOOD SPECIMEN Ordering Facility: [facility] Address: [address] [place] [phone] Performed By: #### 2 4323-8, 3015-3, 1988-12 #### [facility] CLIA [id number] [address] [place] [address] [place] #### 84639-7 #### [facility] CLIA [id number] [address] [place], [place] [address] [place] [facility] CLIA [id number] [address] [facility] [address] [place] [address] [place] #### 51995-0 #### [facility] CLIA [id number] [address] [address] [place] MCHC (RBC) [Mass/Vol] 33.5 g/dL Normal 30.5-36.0 [facility] Comment on above: Order Comment: Speci men Type: BLOOD SPECIMEN Ordering Facility: [facility] Address: [address] [place] [phone] Performed By: #### 2 4323-8, 3015-3, 1988-12 #### [facility] CLIA [id number] [address] [place] [address] [place] #### 33365-5 #### [facility] CLIA [id number] [address] [place], [place] [address] [place] [facility] CLIA [id number] [address] [facility] [address] [place] [address] [place] #### 38403-4 #### [facility] CLIA [id number] [address] [address] [place] MCV (RBC) [Entitic vol] 95.3 fL Normal 80.0-100.0 [facility] Comment on above: Order Comment: Speci men Type: BLOOD SPECIMEN Ordering Facility: [facility] Address: [address] [place] [phone] Performed By: #### 2 4323-8, 3015-3, 1988-12 #### [facility] CLIA [id number] [address] [place] [address] [place] #### 63406-0 #### [facility] CLIA [id number] [address] [place], [place] [address] [place] [facility] CLIA [id number] [address] [facility] [address] [place] [address] [place] #### 99726-8 #### [facility] CLIA [id number] [address] [place] [id number] [place] Monocytes (Bld) [#/Vol] 0.98 10*3/uL High <0.87 [facility] Comment on above: Order Comment: Speci men Type: BLOOD SPECIMEN Ordering Facility: [facility] Address: [address] [place] [phone] Performed By: #### 2 432-8, 3015-12, 1988-12 #### [facility] CLIA [id number] [address] [place], [place] [address] [place] #### 90690-4 #### [facility] CLIA [id number] [address] [place], [place] [address] [place] [facility] CLIA [id number] [address] [place] [address] [place] #### [id number] #### [facility] CLIA [id number] [address] [place] [address] [place] Monocytes/100 WBC (Bld) 6.1 % Normal [facility] Comment on above: Order Comment: Speci men Type: BLOOD SPECIMEN Ordering Facility: [facility] Address: [address] [place] [id number] Performed By: #### 2 4323-8, 3015-12, 1988-12 #### [facility] CLIA [id number] [address] [place], [place] [address] [place] #### [id number] #### [facility] CLIA [id number] [address] [place], [place] [address] [place] [facility] CLIA [id number] [address] [facility] [address] [place] [address] [place] #### 27677-6 #### [facility] CLIA [id number] [address] [place] [id number] [place] Neutrophils (Bld) [#/Vol] 3.64 10*3/uL Normal 1.45-7.50 [facility] Comment on above: Order Comment: Speci men Type: BLOOD SPECIMEN Ordering Facility: [facility] Address: [address] [place] [address] [address] Performed By: #### 2 4323-8, 3015-12, 1988-12 #### [facility] CLIA [id number] [address] [place] [address] [place] #### 15459-9 #### [facility] CLIA [id number] [address] [place] [address] [place] [facility] CLIA [id number] [address] [place] [address] [place] #### 68498-2 #### [facility] CLIA [id number] [address] [place] [address] [place] Neutrophils/100 WBC (Bld) 22.6 % Normal [facility] Comment on above: Order Comment: Speci men Type: BLOOD SPECIMEN Ordering Facility: [facility] Address: [address] [place], [place] [address] Performed By: #### 2 4323-8, 3015-12, 1988-12 #### [facility] CLIA [id number] [address] [place] [address] [place] #### 60823-5 #### [facility] CLIA [id number] [address] [place] [address] [place] [facility] CLIA [id number] [address] [facility] [place] [address] [place] #### 70650-9 #### [facility] CLIA [id number] [address] [place] [address] [place] Nucleated RBC (Bld) [#/Vol] 10*3/uL Normal <0.01 [facility] Comment on above: Order Comment: Speci men Type: BLOOD SPECIMEN Ordering Facility: [facility] Address: [address] [place] [address] Performed By: #### 2 4323-8, 3015-3, 1988-12 #### [facility] CLIA [id number] [address] [place] [address] [place] #### 47008-0 #### [facility] CLIA [id number] [address] [place] [address] [place] [facility] CLIA [id number] [address] [place] [address] [place] #### 17669-7 #### [facility] CLIA [id number] [address] [place] [address] [place] Nucleated RBC/100 WBC (Bld) [Ratio] 0.0 /100 WBC Normal [facility] Comment on above: Order Comment: Speci men Type: BLOOD SPECIMEN Ordering Facility: [facility] Address: [address] [place] [phone] Performed By: #### 2 4323-8, 3015-12, 1988-12 #### [facility] CLIA [id number] [address] [place] [address] [place] #### 24173-8 #### [facility] CLIA [id number] [address] [place] [address] [place] [facility] CLIA [id number] [address] [facility] [place] [address] [place] #### 08754-3 #### [facility] CLIA [id number] [address] [place] [address] [place] Platelet mean volume (Bld) [Entitic vol] 9.8 fL Normal 9.0-12.7 [facility] Comment on above: Order Comment: Speci men Type: BLOOD SPECIMEN Ordering Facility: [facility] Address: [address] [place] [phone] Performed By: #### 2 4323-8, 3015-3, 1988-12 #### [facility] CLIA [id number] [address] [place] [address] [place] #### 03501-6 #### [facility] CLIA [id number] [address] [place] [address] [place] [facility] CLIA [id number] [address] [facility] [address] [address] [place] #### 91716-0 #### [facility] CLIA [id number] [address] [address] [place] Platelets (Bld) [#/Vol] 126 10*3/uL Low 150-400 [facility] Comment on above: Order Comment: Speci men Type: BLOOD SPECIMEN Ordering Facility: [facility] Address: [address] [place] [address] Performed By: #### 2 4323-8, 3015-3, 1988-12 #### [facility] CLIA [id number] [address] [place], [place] [address] [place] #### 78706-0 #### [facility] CLIA [id number] [address] [place], [place] [address] [place] [facility] CLIA [id number] [address] [facility] [address] [address] [place] #### 86454-9 #### [facility] CLIA [id number] [address] [address] [place] RBC (Bld) [#/Vol] 4.04 10*6/uL Normal 3.90-5.20 [facility] Comment on above: Order Comment: Speci men Type: BLOOD SPECIMEN Ordering Facility: [facility] Address: [address] [place] [address] Performed By: #### 2 4323-8, 3, 1988-12 #### [facility] CLIA [id number] [address] [place] [address] [place] #### 58748-1 #### [facility] CLIA [id number] [address] [place] [address] [place] [facility] CLIA [id number] [address] [facility] [address] [place] [address] [place] #### 67343-6 #### [facility] CLIA [id number] [address] [place] [address] [place] WBC (Bld) [#/Vol] 16.08 10*3/uL High 3.70-11.[address] [facility] Comment on above: Order Comment: Speci men Type: BLOOD SPECIMEN Ordering Facility: [facility] Address: [address] [place] [address] Performed By: #### 2 4323-8, 3015-12, 1988-12 #### [facility] CLIA [id number] [address] [place] [address] [place] #### [id number] #### [facility] CLIA [id number] [address] [place] [address] [place] [facility] CLIA [id number] [address] [facility] [address] [place] [address] [place] #### 33687-9 #### [facility] CLIA [id number] [address] [place], [place] [address] [place] Cholesterol in LDL Direct as say [Mass/Vol]on 06-07-2024 Cholesterol in LDL [Mass/Vol] 31 mg/dL Normal <100 [facility] Comment on above: Order Comment: Speci men Type: BLOOD SPECIMEN Ordering Facility: [facility] Address: [address] [place] [phone] Result Comment: <100 mg/dL, Optimal 100-129 mg/dL, Near optimal/above optimal 130-159 mg/dL, Borderline high 160-189 mg/dL, High >189 mg/dL, Very high Secondary prevention optimal LDL Cholesterol levels are recommended to be < 70 mg/dL Performed By: #### 2 4323-8, 3015-12, 1988-12 #### [facility] CLIA [id number] [address] [place], [place] [address] [facility] [place] #### 57164-5 #### [facility] CLIA [id number] [address] [place], [place] [address] [place] [facility] CLIA [id number] [address]337 [facility] [address] [place] [address] [place] #### 30465-5 #### [facility] CLIA [id number] [address] [place] [address] STATES [place] [facility] Comprehensive metabolic 2000 panelon 06-07-2024 Albumin [Mass/Vol] 3.6 g/dL Normal 3.2-5.0 [facility] Comment on above: Order Comment: Brenda garcia Type: BLOOD SPECIMEN Ordering Facility: [facility] Address: [address] [place] [phone] Performed By: #### 2 4323-8, 3015-12, 1988-12 #### [facility] CLIA [id number] [address] [place] [address] [place] #### 90124-7 #### [facility] CLIA [id number] [address] [place] [address] [place] [facility] CLIA [id number] [address]337 [facility] [address] [place] [address] [place] #### 56773-5 #### [facility] CLIA [id number] [address] [place], [place] [address] [place] ALP [Catalytic activity/Vol] 71 U/L Normal 45-117 [facility] Comment on above: Order Comment: Speci men Type: BLOOD SPECIMEN Ordering Facility: [facility] Address: [address] [place], [place] [address] Performed By: #### 2 4323-8, 3015-12, 1988-12 #### [facility] CLIA [id number] [address] [place] [address] [place] #### 15399-1 #### [facility] CLIA [id number] [address] [place] [address] [place] [facility] CLIA [id number] [address] [place] #### 11970-7 #### [facility] CLIA [id number] [address] [place], [place] [address] [place] ALT [Catalytic activity/Vol] 8 U/L Low 13-61 [facility] Comment on above: Order Comment: Speci men Type: BLOOD SPECIMEN Ordering Facility: [facility] Address: [address] [place], [place] [phone] Result Comment: Resu lts may be falsely depressed after the administration of Sulfasalazine and/or Sulfapyridine. Performed By: #### 2 4323-8, 3015-12, 1988-12 #### [facility] CLIA [id number] [address] [place] [address] [place] #### 95796-5 #### [facility] CLIA [id number] [address] [place] [address] [place] [facility] CLIA [id number] [address] [facility] [employer] [facility] [place] [address] [place] [address] [place] #### 38128-8 #### [facility] CLIA [id number] [address] [place] [id number] [place] Anion gap [Moles/Vol] 7 mmol/L Normal 5-16 [facility] Comment on above: Order Comment: Speci men Type: BLOOD SPECIMEN Ordering Facility: [facility] Address: [address] [place] [phone] Performed By: #### 2 4323-8, 3015-12, 1988-12 #### [facility] CLIA [id number] [address] [place] [address] [place] #### 41773-2 #### [facility] CLIA [id number] [address] [place] [address] [place] [facility] CLIA [id number] [address] [facility] [address] [place] #### 02743-9 #### [facility] CLIA [id number] [address] [place], [place] [address] [place] AST [Catalytic activity/Vol] 14 U/L Normal 8-34 [facility] Comment on above: Order Comment: Speci men Type: BLOOD SPECIMEN Ordering Facility: [facility] Address: [address] [place] [phone] Result Comment: Resu lts may be falsely depressed after the administration of Sulfasalazine and/or Sulfapyridine. Performed By: #### 2 4323-8, 3015-12, 1988-12 #### [facility] CLIA [id number] [address] [place] [address] [place] #### 81383-1 #### [facility] CLIA [id number] [address] [place] [address] [place] [facility] CLIA [id number] [address] [place] [employer] [place] [address] [place] [address] [place] #### 60801-6 #### [facility] CLIA [id number] [address] [address] [place] Bilirubin [Mass/Vol] 0.4 mg/dL Normal 0.2-1.[address] [facility] Comment on above: Order Comment: Speci men Type: BLOOD SPECIMEN Ordering Facility: [facility] Address: [address] [place] [phone] Performed By: #### 2 4323-8, 3016-3, 1988-12 #### [facility] CLIA [id number] [address] [place] [address] [place] #### 60858-0 #### [facility] CLIA [id number] [address] [place] [address] [place] [facility] CLIA [id number] [address] [place] [address] [place] #### 69330-8 #### [facility] CLIA [id number] [address] [place], [place] [address] [place] Calcium [Mass/Vol] 9.9 mg/dL Normal 8.5-10.5 [facility] Comment on above: Order Comment: Speci men Type: BLOOD SPECIMEN Ordering Facility: [facility] Address: [address] [place] [phone] Performed By: #### 2 4323-8, 3016-3, 1988-12 #### [facility] CLIA [id number] [address] [place] [address] [place] #### 84743-3 #### [facility] CLIA [id number] [address] [place] [address] [place] [facility] CLIA [id number] [address] [facility] [place] [address] [place] #### 18018-2 #### [facility] CLIA [id number] [address] [place] [address] [place] Chloride [Moles/Vol] 103 mmol/L Normal 98-[address] [facility] Comment on above: Order Comment: Speci men Type: BLOOD SPECIMEN Ordering Facility: [facility] Address: [address] [place] [phone] Performed By: #### 2 4323-8, 3, 1988-12 #### [facility] CLIA [id number] [address] [place] [address] [place] #### 89863-8 #### [facility] CLIA [id number] [address] [place] [address] [place] [facility] CLIA [id number] [address] [place] #### 48542-1 #### [facility] CLIA [id number] [address] [place] [address] [place] CO2 [Moles/Vol] 27 mmol/L Normal 21-32 [facility] Comment on above: Order Comment: Speci men Type: BLOOD SPECIMEN Ordering Facility: [facility] Address: [address] [place], [place] [phone] Performed By: #### 2 4323-8, 3015-12, 1988-12 #### [facility] CLIA [id number] [address] [place] [address] [place] #### 98303-4 #### [facility] CLIA [id number] [address] [place], [place] [address] [place] [facility] CLIA [id number] [address] [facility] [place] [address] [place] #### 07607-8 #### [facility] CLIA [id number] [address] [place] [address] [place] Creatinine [Mass/Vol] 0.94 mg/dL Normal 0.51-0.95 [facility] Comment on above: Order Comment: Brenda garcia Type: BLOOD SPECIMEN Ordering Facility: [facility] Address: [address] [place] [phone] Result Comment: Jenifer ents receiving either N-Acetylcysteine (NAC) or Metamizole prior to venipuncture, may have falsely depressed results. Performed By: #### 2 4323-8, 3015-12, 1988-12 #### [facility] CLIA [id number] [address] [place] [address] #### 77259-4 #### [facility] CLIA [id number] [address] [place], [place] [address] [place] [facility] CLIA [id number] [address] [place] #### 57863-0 #### [facility] CLIA [id number] [facility] [address] [facility] Creatinine and Glomerular filtration rate.predicted panel (S/P/Bld) 63 mL/min/1.73m??? Normal >=60 [facility] Comment on above: Order Comment: Brenda garcia Type: BLOOD SPECIMEN Ordering Facility: [facility] Address: [address] [place] [phone] Result Comment: Gabriella mated Glomerular Filtration Rate (eGFR) is calculated using the 2020 CKD-EPI creatinine equation. This equation utilizes serum creatinine, sex, and age as parameters. The creatinine assay has traceable calibration to isotope dilution-mass spectrometry. Refer to KDIGO guidelines for clinical interpretation. In patients with unstable renal function, e.g. those with acute kidney injury, the eGFR may not accurately reflect actual GFR. Performed By: #### 2 4323-8, 3015-12, 1988-12 #### [facility] CLIA [id number] [address] [place] [address] [place] #### 27538-1 #### [facility] CLIA [id number] [address] [place] [address] [place] [facility] CLIA [id number] [address] [address] [place] #### 24496-5 #### [facility] CLIA [id number] [address] [facility] [place] [address] [place] Glucose [Mass/Vol] 161 mg/dL High 70-100 [facility] Comment on above: Order Comment: Speci men Type: BLOOD SPECIMEN Ordering Facility: [facility] Address: [address] [place] [phone] Result Comment: The [place] Diabetes Association (ADA) provides guidance for cutoff values for fasting glucose and random glucose. The ADA defines fasting as no caloric intake for at least 8 hours. Fasting plasma glucose results between 100 to 125 mg/dL indicate increased risk for diabetes (prediabetes). Fasting plasma glucose results greater than or equal to 126 mg/dL meet the criteria for diagnosis of diabetes. In the absence of unequivocal hyperglycemia, results should be confirmed by repeat testing. In a patient with classic symptoms of hyperglycemia or hyperglycemic crisis, random plasma glucose results greater than or equal to 200 mg/dL meet the criteria for diagnosis of diabetes. Reference: Standards of Medical Care in Diabetes 2016, [place] Diabetes Association. Diabetes Care. 2016.39(Suppl 1). Results may be falsely elevated after the administration of Sulfapyridine. Results may be falsely depressed after the administration of Sulfasalazine. Performed By: #### 2 4323-8, 3016-3, 1988- #### [facility] CLIA [id number] [address] [place] [address] [place] #### 69485-3 #### [facility] CLIA [id number] [address] [place] [address] [place] [facility] CLIA [id number] [address] [place] [address] [place] #### 58116-9 #### [facility] CLIA [id number] [address] [place] [address] [place] Potassium [Moles/Vol] 4.1 mmol/L Normal 3.5-5.1 [facility] Comment on above: Order Comment: Speci men Type: BLOOD SPECIMEN Ordering Facility: [facility] Address: [address] [place] [phone] Performed By: #### 2 4323-8, 3016-3, 1988-12 #### [facility] CLIA [id number] [address] [place] [address] [place] #### 09336-0 #### [facility] CLIA [id number] [address] [place] [address] [place] [facility] CLIA [id number] [address] [place] [address] [place] #### 26331-6 #### [facility] CLIA [id number] [address] [place] [address] [place] Protein [Mass/Vol] 6.5 g/dL Normal 6.0-8.5 [facility] Comment on above: Order Comment: Speci men Type: BLOOD SPECIMEN Ordering Facility: [facility] Address: [address] [place] [phone] Performed By: #### 2 4323-8, 3016-3, 1988-12 #### [facility] CLIA [id number] [address] [place] [address] [place] #### 38771-4 #### [facility] CLIA [id number] [address] [place], [place] [address] [place] [facility] CLIA [id number] [address] [place] [address] [place] #### 59278-1 #### [facility] CLIA [id number] [address] [place] [address] [place] Sodium [Moles/Vol] 137 mmol/L Normal 136-145 [facility] Comment on above: Order Comment: Speci men Type: BLOOD SPECIMEN Ordering Facility: [facility] Address: [address] [place], [place] [address] [address] Performed By: #### 2 4323-8, 3, 1988-12 #### [facility] CLIA [id number] [address] [place] [address] [place] #### 13340-0 #### [facility] CLIA [id number] [address] [place] [address] [place] [facility] CLIA [id number] [address] [place] [address] [place] #### 53224-7 #### [facility] CLIA [id number] [address] [place] [address] [place] Urea nitrogen [Mass/Vol] 14 mg/dL Normal 7-26 [facility] Comment on above: Order Comment: Speci men Type: BLOOD SPECIMEN Ordering Facility: [facility] Address: [address] [place] [phone] Performed By: #### 2 4323-8, 3015-12, 1988-12 #### [facility] CLIA [id number] [address] [place] [address] [place] #### 51408-8 #### [facility] CLIA [id number] [address] [place] [address] [place] [facility] CLIA [id number] [address] [place] [address] [place] #### 08687-8 #### [facility] CLIA [id number] [address] [place] [address] [place] HbA1c (Bld)on 06-07-2024 Average glucose Estimated from glycated hemoglobin (Bld) [Mass/Vol] 151 mg/dL Normal [facility] Comment on above: Order Comment: Brenda garcia Type: BLOOD SPECIMEN Ordering Facility: [facility] Address: [address] [place], [place] [address] [address] Result Comment: eAG: (Estimated average glucose) is a calculated value from HgbA1c and is congressional representative of the average blood glucose level in the last 2-3 month period. Performed By: #### 2 4323-8, 3015-12, 1988-12 #### [facility] CLIA [id number] [address] [place] [address] #### [id number] #### [facility] CLIA [id number] [address] [place], [place] [id number] [facility] CLIA [id number] [place] #### [id number] #### [facility] CLIA [id number] [address] [place] HbA1c (Bld) [Mass fraction] 6.9 % High 4.3-5.6 [facility] Comment on above: Order Comment: Brenda garcia Type: BLOOD SPECIMEN Ordering Facility: [facility] Address: [address] [place] [phone] Result Comment: Amer ican Diabetes Association guidelines indicate that patients with HgbA1c in the range 5.7-6.4% are at increased risk for development of diabetes, and intervention by lifestyle modification may be beneficial. HgbA1c greater or equal to 6.5% is considered diagnostic of diabetes. Performed By: #### 2 4323-8, 3015-12, 1988-12 #### [facility] CLIA [id number] [address] [place], [place] [address] [place] #### 37173-8 #### [facility] CLIA [id number] [address] [place], [place] [address] [facility] CLIA [id number] [address] [place] [address] [place] #### 92095-9 #### [facility] CLIA [id number] [address] [place] [address] Lipid 1995 Pnl SerPlon 06-07 Cholesterol in VLDL [Mass/Vol] Normal [facility] Comment on above: Order Comment: Speci men Type: BLOOD SPECIMEN Ordering Facility: [facility] Address: [address] [place], [place] [address] [address] Result Comment: Unab le to calculate due to elevated Triglycerides. Unable to calculate due to increased Triglycerides. See LDL-Chol, Direct. Performed By: #### 2 4323-8, 3015-12, 1988-12 #### [facility] CLIA [id number] [address] [place] [address] OF [facility] #### [id number] #### [facility] CLIA [id number] [address] [place], [place] [address] [facility] CLIA [id number] [address] [place] #### [id number] #### [facility] CLIA [id number] [address] [place] [address] [place] Result Comment: Test not indicated. Lipid 1995 panelon 4 Cholesterol [Mass/Vol] 114 mg/dL Normal 0-199 [facility] Comment on above: Order Comment: Speci men Type: BLOOD SPECIMEN Ordering Facility: [facility] Address: [address] [place] [address] [place] [address] Result Comment: <200 mg/dL, Desirable 200-239 mg/dL, Borderline high >239 mg/dL, High Performed By: #### 2 4323-8, 3015-12, 1988-12 #### [facility] CLIA [id number] [address] [place], [place] [address] [facility] [place] #### 01401-4 #### [facility] CLIA [id number] [address] [place] [address] [facility] CLIA [id number] [address] [address] [place] #### 03048-8 #### [facility] CLIA [id number] [address] [place] [id number] [place] Cholesterol in HDL [Mass/Vol] 28 mg/dL Low >40 [facility] Comment on above: Order Comment: Speci men Type: BLOOD SPECIMEN Ordering Facility: [facility] Address: [address] [place] [phone] Result Comment: 40-5 9 mg/dL, Acceptable >59 mg/dL, High: Negative risk factor for coronary heart disease <40 mg/dL, Low: Positive risk factor for coronary heart disease Performed By: #### 2 4323-8, 3016-3, 1988-12 #### [facility] CLIA [id number] [address] [place] [address] [place] #### 00206-1 #### [facility] CLIA [id number] [address] [place] [address] [place] [facility] CLIA [id number] [address] [place] [address] [place] #### 16977-2 #### [facility] CLIA [id number] [facility] [place] [id number] [place] Cholesterol in LDL [Mass/Vol] Normal [facility] Comment on above: Order Comment: Speci men Type: BLOOD SPECIMEN Ordering Facility: [facility] Address: [address] [place] [phone] Result Comment: Unab le to calculate due to elevated Triglycerides. Unable to calculate due to increased Triglycerides. See LDL-Chol, Direct. Performed By: #### 2 4323-8, 3016-3, 1988-12 #### [facility] CLIA [id number] [address] [place] [address] [place] #### 04063-7 #### [facility] CLIA [id number] [address] [place] [address] [place] [facility] CLIA [id number] [address] [facility] [address] [place] [address] [place] #### 81945-6 #### [facility] CLIA [id number] [address] [facility] [place] [address] [place] Cholesterol in LDL/Cholesterol in HDL [Mass ratio] Normal [facility] Comment on above: Order Comment: Speci men Type: BLOOD SPECIMEN Ordering Facility: [facility] Address: [address] [place] [phone] Result Comment: Unab le to calculate due to elevated Triglycerides. Reference: 1. National Cholesterol Education Program ATP III Guideline At-A-Glance Quick Desk Reference: National Heart, Lung, and Blood Glen. National Institutes of Health. 2001: NIH Publication No. 01-3305. 2. An International Atherosclerosis Society position paper: global recommendations for the management of dyslipidemia: executive summary, Atherosclerosis. 2014: 232(2):410-413. Performed By: #### 2 4323-8, 3015-12, 1988-12 #### [facility] CLIA [id number] [address] [place] [address] [place] #### 97861-1 #### [facility] CLIA [id number] [address] [place] [address] [place] [facility] CLIA [id number] [address] [facility] [address] [place] [address] [place] #### 27400-6 #### [facility] CLIA [id number] [address]00 [facility] [address] [address] [place] Cholesterol non HDL [Mass/Vol] 86 mg/dL Normal <130 [facility] Comment on above: Order Comment: Brenda garcia Type: BLOOD SPECIMEN Ordering Facility: [facility] Address: [address] [place], [place] [address] [place] [address] Result Comment: <130 mg/dL, Optimal 130-159 mg/dL, Near optimal/above optimal 160-189 mg/dL, Borderline high 190-219 mg/dL, High >219 mg/dL, Very high Secondary prevention optimal non HDL Cholesterol levels are recommended to be <100 mg/dL Performed By: #### 2 4323-8, 3015-12, 1988-12 #### [facility] CLIA [id number] [address] [place] [address] [facility] [place] #### 34057-2 #### [facility] CLIA [id number] [address] [place] [address] [place] [facility] CLIA [id number] [address] [place] [address] [place] #### 78914-6 #### [facility] CLIA [id number] [address] [place] [address] [place] Cholesterol.total/Choles terol in HDL [Mass ratio] 4.07 {ratio} Normal <5.10 [facility] Comment on above: Order Comment: Brenda garcia Type: BLOOD SPECIMEN Ordering Facility: [facility] Address: [address] [place], [place] [address] [place] [address] Performed By: #### 2 4323-8, 3015-12, 1988-12 #### [facility] CLIA [id number] [address] [place] [address] [facility] [place] #### 48298-7 #### [facility] CLIA [id number] [address] [place] [address] [place] [facility] CLIA [id number] [address] [place] [address] [place] #### 68843-4 #### [facility] CLIA [id number] [address] [address] [place] FASTING TIME 10 hrs Normal [facility] Comment on above: Order Comment: Speci men Type: BLOOD SPECIMEN Ordering Facility: [facility] Address: [address] [place] [phone] Performed By: #### 2 4323-8, 3015-12, 1988-12 #### [facility] CLIA [id number] [address] [place] [address] [place] #### 91465-9 #### [facility] CLIA [id number] [address] [place] [address] [place] [facility] CLIA [id number] [address] [facility] [address] [place] #### 50099-7 #### [facility] CLIA [id number] [address] [address] [place] Triglyceride [Mass/Vol] 550 mg/dL High 30-149 [facility] Comment on above: Order Comment: Speci men Type: BLOOD SPECIMEN Ordering Facility: [facility] Address: [address] [place] [phone] Result Comment: <150 mg/dL, Normal 150-199 mg/dL, Borderline high 200-499 mg/dL, High >499 mg/dL, Very high Patients receiving either N-Acetylcysteine (NAC) or Metamizole prior to venipuncture, may have falsely depressed results. Performed By: #### 2 4323-8, 3015-12, 1988-12 #### [facility] CLIA [id number] [address] [place] [address] [place] #### 60139-6 #### [facility] CLIA [id number] [address] [place] [address] [place] [facility] CLIA [id number] [address] #### 60953-3 #### [facility] CLIA [id number] [address] [place] [address] [place] TSH SerPl-aCncon 06-07-2024 TSH Qn 4.628 m[IU]/L High 0.358-3.74 0 [facility] Comment on above: Order Comment: Speci men Type: BLOOD SPECIMEN Ordering Facility: [facility] Address: [address] [place] [address] [place] [address] Result Comment: 3rd generation ultra sensitive TSH. Performed By: #### 2 4323-8, 3016-3, 1988-12 #### [facility] CLIA [id number] [address] [place] [address] #### 45818-9 #### [facility] CLIA [id number] [address] [place] [address] [place] [facility] CLIA [id number] [address] [place] #### 69647-8 #### [facility] CLIA [id number] [address] [place] [address] OF [place] CNTHERAPYon 03-21-2024 CNTHERAPY OT/PT/Speech Visit (PNORCA) -- PENNY MCKEON ([id number]) 1945 F Date Time Provider Department 03/21/24 10:30 AM TOMAS DUARTE PNORCA Date Time Provider Department Center 03/21/2024 10:30 AM [id number], DEBRA A [facility] N Reason for Visit: Physical Therapy [503] Primary Visit Diagnosis:Chronic pain of right knee [M25.561, G89.29] Other Visit Diagnoses:Chronic pain of left knee [M25.562, G89.29] Muscle weakness (generalized) [M62.81] Other abnormalities of gait and mobility [R26.89] Allergies As of Date: 03/21/2024 (No Known Allergies) Date Reviewed: 08/29/2017 Reviewed by: Nurys Veliz (Rn)(Hist), RN - Fully Assessed Prescriptions as of 03/21/2024 - CALCIUM CARBONATE/VITAMIN D3 (VITAMIN D-3 ORAL) Take by mouth. - aspirin 325 mg tablet Take 325 mg by mouth once daily. - albuterol (PROVENTIL) 2.5 mg /3 mL (0.083 %) nebulizer solution Use 2.5 mg via nebulizer. - oxybutynin ER (DITROPAN XL) 10 mg 24 hr tablet Take 10 mg by mouth once daily. - FENOFIBRATE MICRONIZED 145 MG TAB - niacin ER (NIASPAN) 1,000 mg CR tablet Take 1,000 mg by mouth daily at bedtime. - Levothyroxine 50 mcg cap Take by mouth. - lisinopril (ZESTRIL, PRINIVIL) 40 mg tablet Take 40 mg by mouth once daily. - simvastatin (ZOCOR) 40 mg tablet Take 40 mg by mouth daily at bedtime. - carvedilol (COREG) 25 mg tablet Take 25 mg by mouth twice daily with meals. - sitaGLIPtin-metFORMIN (JANUMET XR) 50-1,000 mg TM24 Take by mouth. - escitalopram oxalate (LEXAPRO) 20 mg tablet Take 20 mg by mouth once daily. - COQ10, LIPOSOMAL UBIQUINOL, ORAL Take by mouth. - ustekinumab (STELARA) 130 mg/26 mL injection Inject intravenously. - ciprofloxacin-dexamethason e (CIPRODEX) otic suspension Use 4 Drops in the left ear twice daily. -- Manager Order: Therapy (PT/OT/Speech/Resp) ID: [id number] 03/21/2024 10:56 AM Author: TOMAS DUARTE Signed by TOMAS DUARTE LEASING SPECIALIST on 03/21/2024 at 10:56 AM Document text: Program_ID:[id number] Access Code: [email or web address] URL: https://[employer]/ Date: 03-21-2024 Prepared By: TOMAS DUARTE Program Notes Exercises - Forward Walking - 1 x daily - 7 x weekly - 3 sets - 10 reps - Backward Walking - 1 x daily - 7 x weekly - 3 sets - 10 reps - Side Stepping - 1 x daily - 7 x weekly - 3 sets - 10 reps - Standing March at Pool Wall - 1 x daily - 7 x weekly - 3 sets - 10 reps - Heel Toe Raises at Pool Wall - 1 x daily - 7 x weekly - 3 sets - 10 reps - Standing Hip Abduction Adduction at Pool Wall - 1 x daily - 7 x weekly - 3 sets - 10 reps - Standing Hip Flexion Extension at Pool Wall - 1 x daily - 7 x weekly - 3 sets - 10 reps - Standing hip extension at pool wall - 1 x daily - 7 x weekly - 3 sets - 10 reps - Standing Knee Flexion - 1 x daily - 7 x weekly - 3 sets - 10 reps - Squats on step with upper extremity support - 1 x daily - 7 x weekly - 3 sets - 10 reps - Standing hamstring stretch at step in pool - 1 x daily - 7 x weekly - 3 sets - 10 reps - Standing bilateral gastroc stretch with step in the pool - 1 x daily - 7 x weekly - 3 sets - 10 reps - Forward step up in pool with railing - 1 x daily - 7 x weekly - 3 sets - 10 reps - also ski and legs apart/together - 1 x daily - 7 x weekly - 1 sets - 1 reps [facility] THERAPY NTon 03-21-2024 THERAPY NT HNO ID: [id number] Author: TOMAS DUARTE PTA Service: ? Author Type: Millinery Department Manager Type: Therapy (PT/OT/Speech/Resp) Filed: 03/21/2024 10:56 Note Text: Program_ID:[id number] Access Code: [email or web address] URL: [email or web address]://[employer]/ Date: 03-21-2024 Prepared By: TOMAS DUARTE Program Notes Exercises - Forward Walking - 1 x daily - 7 x weekly - 3 sets - 10 reps - Backward Walking - 1 x daily - 7 x weekly - 3 sets - 10 reps - Side Stepping - 1 x daily - 7 x weekly - 3 sets - 10 reps - Standing March at Pool Wall - 1 x daily - 7 x weekly - 3 sets - 10 reps - Heel Toe Raises at Pool Wall - 1 x daily - 7 x weekly - 3 sets - 10 reps - Standing Hip Abduction Adduction at Pool Wall - 1 x daily - 7 x weekly - 3 sets - 10 reps - Standing Hip Flexion Extension at Pool Wall - 1 x daily - 7 x weekly - 3 sets - 10 reps - Standing hip extension at pool wall - 1 x daily - 7 x weekly - 3 sets - 10 reps - Standing Knee Flexion - 1 x daily - 7 x weekly - 3 sets - 10 reps - Squats on step with upper extremity support - 1 x daily - 7 x weekly - 3 sets - 10 reps - Standing hamstring stretch at step in pool - 1 x daily - 7 x weekly - 3 sets - 10 reps - Standing bilateral gastroc stretch with step in the pool - 1 x daily - 7 x weekly - 3 sets - 10 reps - Forward step up in pool with railing - 1 x daily - 7 x weekly - 3 sets - 10 reps - also ski and legs apart/together - 1 x daily - 7 x weekly - 1 sets - 1 reps Normal [facility] CNTHERAPYon 03-19-2024 CNTHERAPY OT/PT/Speech Visit (PNORCA) -- PENNY MCKEON ([id number]) 1945 F Date Time Provider Department 03/19/24 2:15 PM CANDACE LARRYHittahemROSS Date Time Provider Department Center 03/19/2024 2:15 PM [id number], YEVG*[facility] N Reason for Visit: PT Progress Note [1596] Primary Visit Diagnosis:Chronic pain of right knee [M25.561, G89.29] Other Visit Diagnoses:Chronic pain of left knee [M25.562, G89.29] Muscle weakness (generalized) [M62.81] Other abnormalities of gait and mobility [R26.89] Allergies As of Date: 03/19/2024 (No Known Allergies) Date Reviewed: 08/29/2017 Reviewed by: Nurys Veliz (Rn)(Hist), RN - Fully Assessed Prescriptions as of 03/20/2024 - CALCIUM CARBONATE/VITAMIN D3 (VITAMIN D-3 ORAL) Take by mouth. - aspirin 325 mg tablet Take 325 mg by mouth once daily. - albuterol (PROVENTIL) 2.5 mg /3 mL (0.083 %) nebulizer solution Use 2.5 mg via nebulizer. - oxybutynin ER (DITROPAN XL) 10 mg 24 hr tablet Take 10 mg by mouth once daily. - FENOFIBRATE MICRONIZED 145 MG TAB - niacin ER (NIASPAN) 1,000 mg CR tablet Take 1,000 mg by mouth daily at bedtime. - Levothyroxine 50 mcg cap Take by mouth. - lisinopril (ZESTRIL, PRINIVIL) 40 mg tablet Take 40 mg by mouth once daily. - simvastatin (ZOCOR) 40 mg tablet Take 40 mg by mouth daily at bedtime. - carvedilol (COREG) 25 mg tablet Take 25 mg by mouth twice daily with meals. - sitaGLIPtin-metFORMIN (JANUMET XR) 50-1,000 mg TM24 Take by mouth. - escitalopram oxalate (LEXAPRO) 20 mg tablet Take 20 mg by mouth once daily. - COQ10, LIPOSOMAL UBIQUINOL, ORAL Take by mouth. - ustekinumab (STELARA) 130 mg/26 mL injection Inject intravenously. - ciprofloxacin-dexamethason e (CIPRODEX) otic suspension Use 4 Drops in the left ear twice daily. -- [facility] CNTHERAPYon 03-16-2024 CNTHERAPY OT/PT/Speech Visit (PNORCA) -- PENNY MCKEON ([id number]) 1945 F Date Time Provider Department 03/16/24 2:15 PM JACQUELYN ODONNELL Date Time Provider Department Center 03/16/2024 2:15 PM [id number], MIRANDA [facility] N Reason for Visit: Physical Therapy [503] Primary Visit Diagnosis:Chronic pain of right knee [M25.561, G89.29] Other Visit Diagnoses:Chronic pain of left knee [M25.562, G89.29] Muscle weakness (generalized) [M62.81] Other abnormalities of gait and mobility [R26.89] Allergies As of Date: 03/16/2024 (No Known Allergies) Date Reviewed: 08/29/2017 Reviewed by: Nurys Veliz (Rn)(Hist), RN - Fully Assessed Prescriptions as of 03/16/2024 - CALCIUM CARBONATE/VITAMIN D3 (VITAMIN D-3 ORAL) Take by mouth. - aspirin 325 mg tablet Take 325 mg by mouth once daily. - albuterol (PROVENTIL) 2.5 mg /3 mL (0.083 %) nebulizer solution Use 2.5 mg via nebulizer. - oxybutynin ER (DITROPAN XL) 10 mg 24 hr tablet Take 10 mg by mouth once daily. - FENOFIBRATE MICRONIZED 145 MG TAB - niacin ER (NIASPAN) 1,000 mg CR tablet Take 1,000 mg by mouth daily at bedtime. - Levothyroxine 50 mcg cap Take by mouth. - lisinopril (ZESTRIL, PRINIVIL) 40 mg tablet Take 40 mg by mouth once daily. - simvastatin (ZOCOR) 40 mg tablet Take 40 mg by mouth daily at bedtime. - carvedilol (COREG) 25 mg tablet Take 25 mg by mouth twice daily with meals. - sitaGLIPtin-metFORMIN (JANUMET XR) 50-1,000 mg TM24 Take by mouth. - escitalopram oxalate (LEXAPRO) 20 mg tablet Take 20 mg by mouth once daily. - COQ10, LIPOSOMAL UBIQUINOL, ORAL Take by mouth. - ustekinumab (STELARA) 130 mg/26 mL injection Inject intravenously. - ciprofloxacin-dexamethason e (CIPRODEX) otic suspension Use 4 Drops in the left ear twice daily. -- [facility] [id number] 03-12-2024 [id number] O ID: [id number] Author: BLAZE ALEJANDRO PT, DPT Service: ? Author Type: Physical Therapist Type: [id number] Filed: 03/12/2024 16:46 Note Text: [facility] Physical Therapy Plan of Care Certification Patient Name: Penny Mckeon : 1945 [facility] #: [id number] Date: 01/19/2024 To: Jena Avila MD From Therapist: Blaze Alejandro PT, DPT RE: Patient Certification/ Recertification Your review, approval and electronic signature are required in order to comply with Payor: [facility] MEDICARE / Plan: [facility] MEDICARE ADVANTAGE PPO / Product Type: PPO / regulations. The identified Physical Therapy PLAN OF CARE for the 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s follows: M25.561, G89.29 Chronic pain of right knee (primary encounter diagnosis) M25.562, G89.29 Chronic pain of left knee M62.81 Muscle weakness (generalized) R26.89 Other abnormalities of gait and mobility PLAN OF CARE: Assessment: Penny Mckeon presents with chief complaint of bilateral knee pain that interferes with standing, walking, rising from a chair, walking in the house, walking in the community, stair negotiation . She presents with impairments in independence in exercise, joint mobility, overall function, patient reported outcome measures, range of motion, strength, and symptom management. Patient did not complete the PROMIS? (Patient Reported Outcome Measures Information System). Prognosis for therapy is Good due to: current objective clinical presentation, good overall health status . Symptoms consistent with bilateral knee OA. Will benefit from skilled therapy interventions to establish a home exercise plan with aquatic therapy based interventions. Overall her mobility is good, however it is noted most of her limitations are due to her arthritis present in her bilateral knees. She will benefit from skilled therapy services to meet the goals established for this plan of care as noted below. Goals for Episode of Care: created on 01/19/24 through 03/01/24 Patient report standing/ambulation tolerance of up to 60 minutes to demonstrate improvement in standing duration for functional mobility and activities. [place] in home exercise program. Patient will decrease pain to 3/10 with functional activities to allow patient to improve ambulation and standing tolerance for ADLs. Patient will increase active ROM of bilateral knee flexion and extension to 0-105 to allow pt to to improve gait mechanics / gait pattern . Patient will demonstrate increase in bilateral lower extremity strength to 5/5 during manual muscle testing in order to improve function for basic self-care tasks and moderate to heavy functional tasks. Patient will Improve Timed Up and Go to less than 12 seconds to demonstrate decreased risk of falling. Patient will improve 5 time sit to stand to demonstrate improvement in functional lower extremity strength. Patient will be independent with aquatic program and transition to a community pool and Patient will display decreased acute or intense pain and be able to transition to tolerating land based program Patient Goals: To reduce her pain. Planned Interventions, Frequency, and Duration: Current Frequency: 2x/week Duration: 4 weeks Total Number of Visits Planned: 8 Planned Treatment Interventions: Aquatic PT (18925), Therapeutic exercise (07469) PLAN FOR NEXT VISIT: Exercises for hip flexibility and bilateral lower extremity strengthening. Right and left knee flexion extension range of motion exercises. Progress to home exercise for transition to community pool. Patient demonstrates good understanding of plan of care and treatment. The above goals and plan of care were discussed and agreed upon by patient/family. For further details regarding this patient refer to the Physical Therapy electronically documented visit dated 01/19/2024. Provider Attestation I have reviewed the treatment plan for Penny Mckeon, [facility]# [id number] for the period of 01/19/24 -- 04/17/24, established on 01/19/2024. Signature certifies the need for therapy services. [facility] CNTHERAPYon 02-23-2024 CNTHERAPY OT/PT/Speech Visit (PNORCA) -- PENNY MCKEON ([id number]) 1945 F Date Time Provider Department 02/23/24 10:45 AM BLAZE ALEJANDRO PNORCA Date Time Provider Department Center 02/23/2024 10:45 AM [id number], [place] N Reason for Visit: PT Discharge [752] Primary Visit Diagnosis:Chronic pain of right knee [M25.561, G89.29] Other Visit Diagnoses:Chronic pain of left knee [M25.562, G89.29] Muscle weakness (generalized) [M62.81] Other abnormalities of gait and mobility [R26.89] Allergies As of Date: 02/23/2024 (No Known Allergies) Date Reviewed: 08/29/2017 Reviewed by: Nurys Veliz (Rn)(Hist), RN - Fully Assessed Prescriptions as of 03/20/2024 - CALCIUM CARBONATE/VITAMIN D3 (VITAMIN D-3 ORAL) Take by mouth. - aspirin 325 mg tablet Take 325 mg by mouth once daily. - albuterol (PROVENTIL) 2.5 mg /3 mL (0.083 %) nebulizer solution Use 2.5 mg via nebulizer. - oxybutynin ER (DITROPAN XL) 10 mg 24 hr tablet Take 10 mg by mouth once daily. - FENOFIBRATE MICRONIZED 145 MG TAB - niacin ER (NIASPAN) 1,000 mg CR tablet Take 1,000 mg by mouth daily at bedtime. - Levothyroxine 50 mcg cap Take by mouth. - lisinopril (ZESTRIL, PRINIVIL) 40 mg tablet Take 40 mg by mouth once daily. - simvastatin (ZOCOR) 40 mg tablet Take 40 mg by mouth daily at bedtime. - carvedilol (COREG) 25 mg tablet Take 25 mg by mouth twice daily with meals. - sitaGLIPtin-metFORMIN (JANUMET XR) 50-1,000 mg TM24 Take by mouth. - escitalopram oxalate (LEXAPRO) 20 mg tablet Take 20 mg by mouth once daily. - COQ10, LIPOSOMAL UBIQUINOL, ORAL Take by mouth. - ustekinumab (STELARA) 130 mg/26 mL injection Inject intravenously. - ciprofloxacin-dexamethason e (CIPRODEX) otic suspension Use 4 Drops in the left ear twice daily. -- Letter Text [facility] CNTHERAPYon 02-08-2024 CNTHERAPY OT/PT/Speech Visit (PNORCA) -- PENNY [id number]) 1945 F Date Time Provider Department 02/08/24 10:30 AM TOMAS DUARTE BRODIE Date Time Provider Department [place] 02/08/2024 10:30 AM [id number], DEBRA A [employer] [facility] N Reason for Visit: Physical Therapy [503] Primary Visit Diagnosis:Chronic pain of right knee [M25.561, G89.29] Other Visit Diagnoses:Chronic pain of left knee [M25.562, G89.29] Muscle weakness (generalized) [M62.81] Other abnormalities of gait and mobility [R26.89] Allergies As of Date: 02/08/2024 (No Known Allergies) Date Reviewed: 08/29/2017 Reviewed by: Nurys Veliz (Rn)(Hist), RN - Fully Assessed Prescriptions as of 02/08/2024 - CALCIUM CARBONATE/VITAMIN D3 (VITAMIN D-3 ORAL) Take by mouth. - aspirin 325 mg tablet Take 325 mg by mouth once daily. - albuterol (PROVENTIL) 2.5 mg /3 mL (0.083 %) nebulizer solution Use 2.5 mg via nebulizer. - oxybutynin ER (DITROPAN XL) 10 mg 24 hr tablet Take 10 mg by mouth once daily. - FENOFIBRATE MICRONIZED 145 MG TAB - niacin ER (NIASPAN) 1,000 mg CR tablet Take 1,000 mg by mouth daily at bedtime. - Levothyroxine 50 mcg cap Take by mouth. - lisinopril (ZESTRIL, PRINIVIL) 40 mg tablet Take 40 mg by mouth once daily. - simvastatin (ZOCOR) 40 mg tablet Take 40 mg by mouth daily at bedtime. - carvedilol (COREG) 25 mg tablet Take 25 mg by mouth twice daily with meals. - sitaGLIPtin-metFORMIN (JANUMET XR) 50-1,000 mg TM24 Take by mouth. - escitalopram oxalate (LEXAPRO) 20 mg tablet Take 20 mg by mouth once daily. - COQ10, LIPOSOMAL UBIQUINOL, ORAL Take by mouth. - ustekinumab (STELARA) 130 mg/26 mL injection Inject intravenously. - ciprofloxacin-dexamethason e (CIPRODEX) otic suspension Use 4 Drops in the left ear twice daily. -- [facility] CNTHERAPYon 02-06-2024 CNTHERAPY OT/PT/Speech Visit (PNORCA) -- PENNY MCKEON ([id number]) 1945 F Date Time Provider Department 02/06/24 10:30 AM TOMAS DUARTE [facility] Date Time Provider Department Center 02/06/2024 10:30 AM [id number], DEBRA A [facility] Reason for Visit: Physical Therapy [503] Primary Visit Diagnosis:Chronic pain of right knee [M25.561, G89.29] Other Visit Diagnoses:Chronic pain of left knee [M25.562, G89.29] Muscle weakness (generalized) [M62.81] Other abnormalities of gait and mobility [R26.89] Allergies As of Date: 02/06/2024 (No Known Allergies) Date Reviewed: 08/29/2017 Reviewed by: Nurys Veliz (Rn)(Hist), RN - Fully Assessed Prescriptions as of 02/06/2024 - CALCIUM CARBONATE/VITAMIN D3 (VITAMIN D-3 ORAL) Take by mouth. - aspirin 325 mg tablet Take 325 mg by mouth once daily. - albuterol (PROVENTIL) 2.5 mg /3 mL (0.083 %) nebulizer solution Use 2.5 mg via nebulizer. - oxybutynin ER (DITROPAN XL) 10 mg 24 hr tablet Take 10 mg by mouth once daily. - FENOFIBRATE MICRONIZED 145 MG TAB - niacin ER (NIASPAN) 1,000 mg CR tablet Take 1,000 mg by mouth daily at bedtime. - Levothyroxine 50 mcg cap Take by mouth. - lisinopril (ZESTRIL, PRINIVIL) 40 mg tablet Take 40 mg by mouth once daily. - simvastatin (ZOCOR) 40 mg tablet Take 40 mg by mouth daily at bedtime. - carvedilol (COREG) 25 mg tablet Take 25 mg by mouth twice daily with meals. - sitaGLIPtin-metFORMIN (JANUMET XR) 50-1,000 mg TM24 Take by mouth. - escitalopram oxalate (LEXAPRO) 20 mg tablet Take 20 mg by mouth once daily. - COQ10, LIPOSOMAL UBIQUINOL, ORAL Take by mouth. - ustekinumab (STELARA) 130 mg/26 mL injection Inject intravenously. - ciprofloxacin-dexamethason e (CIPRODEX) otic suspension Use 4 Drops in the left ear twice daily. -- [facility] CNTHERAPYon 02-01-2024 CNTHERAPY OT/PT/Speech Visit (PNORCA) -- PENNY MCKEON ([id number]) 1945 F Date Time Provider Department 02/01/24 10:30 AM TOMAS DUARTE Date Time Provider Department Center 02/01/2024 10:30 AM [id number], DEBRA A [facility] N Reason for Visit: Physical Therapy [503] Primary Visit Diagnosis:Chronic pain of right knee [M25.561, G89.29] Other Visit Diagnoses:Chronic pain of left knee [M25.562, G89.29] Muscle weakness (generalized) [M62.81] Other abnormalities of gait and mobility [R26.89] Allergies As of Date: 02/01/2024 (No Known Allergies) Date Reviewed: 08/29/2017 Reviewed by: Nurys Veliz (Rn)(Hist), RN - Fully Assessed Prescriptions as of 02/01/2024 - CALCIUM CARBONATE/VITAMIN D3 (VITAMIN D-3 ORAL) Take by mouth. - aspirin 325 mg tablet Take 325 mg by mouth once daily. - albuterol (PROVENTIL) 2.5 mg /3 mL (0.083 %) nebulizer solution Use 2.5 mg via nebulizer. - oxybutynin ER (DITROPAN XL) 10 mg 24 hr tablet Take 10 mg by mouth once daily. - FENOFIBRATE MICRONIZED 145 MG TAB - niacin ER (NIASPAN) 1,000 mg CR tablet Take 1,000 mg by mouth daily at bedtime. - Levothyroxine 50 mcg cap Take by mouth. - lisinopril (ZESTRIL, PRINIVIL) 40 mg tablet Take 40 mg by mouth once daily. - simvastatin (ZOCOR) 40 mg tablet Take 40 mg by mouth daily at bedtime. - carvedilol (COREG) 25 mg tablet Take 25 mg by mouth twice daily with meals. - sitaGLIPtin-metFORMIN (JANUMET XR) 50-1,000 mg TM24 Take by mouth. - escitalopram oxalate (LEXAPRO) 20 mg tablet Take 20 mg by mouth once daily. - COQ10, LIPOSOMAL UBIQUINOL, ORAL Take by mouth. - ustekinumab (STELARA) 130 mg/26 mL injection Inject intravenously. - ciprofloxacin-dexamethason e (CIPRODEX) otic suspension Use 4 Drops in the left ear twice daily. -- [facility] CNTHERAPYon 01-30-2024 CNTHERAPY OT/PT/Speech Visit (PNORCA) -- PENNY MCKEON ([id number]) 1945 F Date Time Provider Department 01/30/24 8:00 AM [facility] Date Time Provider Department [place] 01/30/2024 8:00 AM [id number], DEBRA A [facility] N Reason for Visit: Physical Therapy [503] Primary Visit Diagnosis:Chronic pain of right knee [M25.561, G89.29] Other Visit Diagnoses:Chronic pain of left knee [M25.562, G89.29] Muscle weakness (generalized) [M62.81] Other abnormalities of gait and mobility [R26.89] Allergies As of Date: 01/30/2024 (No Known Allergies) Date Reviewed: 08/29/2017 Reviewed by: Nurys Veliz (Rn)(Hist), RN - Fully Assessed Prescriptions as of 01/30/2024 - CALCIUM CARBONATE/VITAMIN D3 (VITAMIN D-3 ORAL) Take by mouth. - aspirin 325 mg tablet Take 325 mg by mouth once daily. - albuterol (PROVENTIL) 2.5 mg /3 mL (0.083 %) nebulizer solution Use 2.5 mg via nebulizer. - oxybutynin ER (DITROPAN XL) 10 mg 24 hr tablet Take 10 mg by mouth once daily. - FENOFIBRATE MICRONIZED 145 MG TAB - niacin ER (NIASPAN) 1,000 mg CR tablet Take 1,000 mg by mouth daily at bedtime. - Levothyroxine 50 mcg cap Take by mouth. - lisinopril (ZESTRIL, PRINIVIL) 40 mg tablet Take 40 mg by mouth once daily. - simvastatin (ZOCOR) 40 mg tablet Take 40 mg by mouth daily at bedtime. - carvedilol (COREG) 25 mg tablet Take 25 mg by mouth twice daily with meals. - sitaGLIPtin-metFORMIN (JANUMET XR) 50-1,000 mg TM24 Take by mouth. - escitalopram oxalate (LEXAPRO) 20 mg tablet Take 20 mg by mouth once daily. - COQ10, LIPOSOMAL UBIQUINOL, ORAL Take by mouth. - ustekinumab (STELARA) 130 mg/26 mL injection Inject intravenously. - ciprofloxacin-dexamethason e (CIPRODEX) otic suspension Use 4 Drops in the left ear twice daily. -- [facility] CNTHERAPYon 01-25-2024 CNTHERAPY OT/PT/Speech Visit (PNORCA) -- PENNY MCKEON ([id number]) 1945 F Date Time Provider Department 01/25/24 9:30 AM TOMAS DUARTE Date Time Provider Department Center 01/25/2024 9:30 AM [id number], DEBRA A [facility] N Reason for Visit: Physical Therapy [503] Primary Visit Diagnosis:Chronic pain of right knee [M25.561, G89.29] Other Visit Diagnoses:Chronic pain of left knee [M25.562, G89.29] Muscle weakness (generalized) [M62.81] Other abnormalities of gait and mobility [R26.89] Allergies As of Date: 01/25/2024 (No Known Allergies) Date Reviewed: 08/29/2017 Reviewed by: Nurys Veliz (Rn)(Hist), RN - Fully Assessed Prescriptions as of 01/25/2024 - CALCIUM CARBONATE/VITAMIN D3 (VITAMIN D-3 ORAL) Take by mouth. - aspirin 325 mg tablet Take 325 mg by mouth once daily. - albuterol (PROVENTIL) 2.5 mg /3 mL (0.083 %) nebulizer solution Use 2.5 mg via nebulizer. - oxybutynin ER (DITROPAN XL) 10 mg 24 hr tablet Take 10 mg by mouth once daily. - FENOFIBRATE MICRONIZED 145 MG TAB - niacin ER (NIASPAN) 1,000 mg CR tablet Take 1,000 mg by mouth daily at bedtime. - Levothyroxine 50 mcg cap Take by mouth. - lisinopril (ZESTRIL, PRINIVIL) 40 mg tablet Take 40 mg by mouth once daily. - simvastatin (ZOCOR) 40 mg tablet Take 40 mg by mouth daily at bedtime. - carvedilol (COREG) 25 mg tablet Take 25 mg by mouth twice daily with meals. - sitaGLIPtin-metFORMIN (JANUMET XR) 50-1,000 mg TM24 Take by mouth. - escitalopram oxalate (LEXAPRO) 20 mg tablet Take 20 mg by mouth once daily. - COQ10, LIPOSOMAL UBIQUINOL, ORAL Take by mouth. - ustekinumab (STELARA) 130 mg/26 mL injection Inject intravenously. - ciprofloxacin-dexamethason e (CIPRODEX) otic suspension Use 4 Drops in the left ear twice daily. -- [facility] CNTHERAPYon 01-23-2024 CNTHERAPY OT/PT/Speech Visit (PNORCA) -- PENNY MCKEON ([id number]) 1945 F Date Time Provider Department 01/23/24 11:30 AM TOMAS DUARTE Date Time Provider Department [place] 01/23/2024 11:30 AM [id number], DEBRA A [facility] N Reason for Visit: Physical Therapy [503] Primary Visit Diagnosis:Chronic pain of right knee [M25.561, G89.29] Other Visit Diagnoses:Chronic pain of left knee [M25.562, G89.29] Muscle weakness (generalized) [M62.81] Other abnormalities of gait and mobility [R26.89] Allergies As of Date: 01/23/2024 (No Known Allergies) Date Reviewed: 08/29/2017 Reviewed by: Nurys Veliz (Rn)(Hist), RN - Fully Assessed Prescriptions as of 01/23/2024 - CALCIUM CARBONATE/VITAMIN D3 (VITAMIN D-3 ORAL) Take by mouth. - aspirin 325 mg tablet Take 325 mg by mouth once daily. - albuterol (PROVENTIL) 2.5 mg /3 mL (0.083 %) nebulizer solution Use 2.5 mg via nebulizer. - oxybutynin ER (DITROPAN XL) 10 mg 24 hr tablet Take 10 mg by mouth once daily. - FENOFIBRATE MICRONIZED 145 MG TAB - niacin ER (NIASPAN) 1,000 mg CR tablet Take 1,000 mg by mouth daily at bedtime. - Levothyroxine 50 mcg cap Take by mouth. - lisinopril (ZESTRIL, PRINIVIL) 40 mg tablet Take 40 mg by mouth once daily. - simvastatin (ZOCOR) 40 mg tablet Take 40 mg by mouth daily at bedtime. - carvedilol (COREG) 25 mg tablet Take 25 mg by mouth twice daily with meals. - sitaGLIPtin-metFORMIN (JANUMET XR) 50-1,000 mg TM24 Take by mouth. - escitalopram oxalate (LEXAPRO) 20 mg tablet Take 20 mg by mouth once daily. - COQ10, LIPOSOMAL UBIQUINOL, ORAL Take by mouth. - ustekinumab (STELARA) 130 mg/26 mL injection Inject intravenously. - ciprofloxacin-dexamethason e (CIPRODEX) otic suspension Use 4 Drops in the left ear twice daily. -- Normal [facility] CNTHERAPYon 01-19-2024 CNTHERAPY OT/PT/Speech Visit (PNORCA) -- PENNY MCKEON ([id number]) 1945 F Date Time Provider Department 01/19/24 7:45 AM BLAZE ALEJANDRO PNORCA Date Time Provider Department Center 01/19/2024 7:45 AM [id number], CONNOR [facility] N Reason for Visit: PT Eval [747] Primary Visit Diagnosis:Chronic pain of right knee [M25.561, G89.29] Other Visit Diagnoses:Chronic pain of left knee [M25.562, G89.29] Muscle weakness (generalized) [M62.81] Other abnormalities of gait and mobility [R26.89] Allergies As of Date: 01/19/2024 (No Known Allergies) Date Reviewed: 08/29/2017 Reviewed by: Nurys Veliz (Rn)(Hist), RN - Fully Assessed Prescriptions as of 02/29/2024 - CALCIUM CARBONATE/VITAMIN D3 (VITAMIN D-3 ORAL) Take by mouth. - aspirin 325 mg tablet Take 325 mg by mouth once daily. - albuterol (PROVENTIL) 2.5 mg /3 mL (0.083 %) nebulizer solution Use 2.5 mg via nebulizer. - oxybutynin ER (DITROPAN XL) 10 mg 24 hr tablet Take 10 mg by mouth once daily. - FENOFIBRATE MICRONIZED 145 MG TAB - niacin ER (NIASPAN) 1,000 mg CR tablet Take 1,000 mg by mouth daily at bedtime. - Levothyroxine 50 mcg cap Take by mouth. - lisinopril (ZESTRIL, PRINIVIL) 40 mg tablet Take 40 mg by mouth once daily. - simvastatin (ZOCOR) 40 mg tablet Take 40 mg by mouth daily at bedtime. - carvedilol (COREG) 25 mg tablet Take 25 mg by mouth twice daily with meals. - sitaGLIPtin-metFORMIN (JANUMET XR) 50-1,000 mg TM24 Take by mouth. - escitalopram oxalate (LEXAPRO) 20 mg tablet Take 20 mg by mouth once daily. - COQ10, LIPOSOMAL UBIQUINOL, ORAL Take by mouth. - ustekinumab (STELARA) 130 mg/26 mL injection Inject intravenously. - ciprofloxacin-dexamethason e (CIPRODEX) otic suspension Use 4 Drops in the left ear twice daily. -- Letter Text Letter Text Normal [facility] Elbow min 3 Viewson 01-12-20 Elbow min 3 Views [facility] Imaging Services [address] [place] [address] Elbow min 3 Views MR#: [id number] Acct: [id number] Name: PENNY MCKEON Rep #: [id number] : 1945 F 78 From: Jhonatan Mendoza MD PCP: Dr. Laura Bowden, DO Status: DEP ER Study: Elbow min 3 Views Date of Exam: 01/12/24 Exam# [id number] Ordering Dr: Dandy Bueno MD [id number] STUDY: X-RAY - RIGHT ELBOW REASON FOR EXAM: Female, 78 years old. FALL TECHNIQUE: 3 view(s) of the elbow. COMPARISON: None. FINDINGS: Normal visualized humerus, radius and ulna. Normal radiocapitellar and ulnotrochlear articulations. Mild periarticular ligamentous calcification. RAD/Elbow min 3 Views IMPRESSION: No evidence for acute fracture or dislocation.. Electronically Signed: Jhonatan Mendoza MD at 20:14 EDT , CC: Dr. Laura Bowden DO; Dr. Dandy Buneo MD Java Programmer Analyst: Signed Normal [facility] Emergency Department Summary on 01-12-2024 Emergency Department Summary [facility] Medical Records Department [address] [place] [address] Emergency Department Summary 01/12/24 MR#: [id number] Acct: [id number] Name: PENNY MCKEON Rep #: [id number] : 1945 78 From: Dandy Bueno MD PCP: Dr. Laura Bowden DO Status:REG ER Location: ED HPI History of Present Illness Chief Complaint: Upper Extremity Injury Detail of Chief Complaint: Pain right shoulder, elbow, wrist and thumb status post fall this past Satu Informant: patient and family Occured/Mechanism Mechanism/Context: Yes blunt trauma Comment: Patient fell from standing position. She tripped. She landed on her right upper extremity. Onset/Context/Timing Onset: Days (Fall occurred Tuesday, January 06.) Context: Sudden Onset Timing: Continuous and Waxes and wanes Quality of Pain: Dull and Aching Location: Shoulder, elbow, wrist and right thumb Current Severity: Mild Maximum Severity: Moderate Worsened by: Movement Relieved by: Nothing Associated Symptoms Associated Symptoms: Negative for Parasthesia, Weakness or Loss of Funtion Narrative Narrative: Patient is a 78-year-old woman who had a mechanical fall. She is not on an anticoagulant. She is on a baby aspirin. She denies head trauma. Slight loss conscious. Denies neck pain. She denies loss of function. She complains of numbness in her thumb index and long finger. She denies chest pain or shortness of breath. She denies nausea or vomiting. She has no other complaints. Prior similar symptoms: No Recent Illness/Hospitalization: No PFSH PFSH Medical History Allergic rhinitis Anxiety and depression CKD (chronic kidney disease) Hyperlipidemia Hypertension Hypothyroidism Morbid obesity Type 2 diabetes mellitus Home Medications aspirin 81 mg tablet,delayed release (Adult Aspirin Regimen) 81 mg PO DAILY Blood thinner 10/15/23 [History Last Taken Unknown] atorvastatin 20 mg tablet 20 mg PO DAILY cholesterol 10/15/23 [History Last Taken Unknown] carvedilol 25 mg tablet 25 mg PO Q12H Blood pres 10/15/23 [History Last Taken Unknown] cetirizine 10 mg tablet 10 mg PO DAILY Allergies 10/15/23 [History Last Taken Unknown] cholestyramine-aspartame 4 gram oral powder for susp in a packet (Cholestyramine Light) 1 ea PO DAILY cholesterol 10/15/23 [History Last Taken Unknown] empagliflozin 25 mg tablet (Jardiance) 25 mg PO DAILY Glucose control 10/15/23 [History Last Taken Unknown] ergocalciferol (vitamin D2) 1,250 mcg (50,000 unit) capsule 1,250 mcg PO DAILY Vit D 10/15/23 [History Last Taken Unknown] escitalopram oxalate 20 mg tablet 20 mg PO DAILY Anxiety 10/15/23 [History Last Taken Unknown] fenofibrate nanocrystallized 145 mg tablet 145 mg PO DAILY cholesterol 10/15/23 [History Last Taken Unknown] levothyroxine 50 mcg tablet 50 mcg PO DAILY thyroid 10/15/23 [History Last Taken Unknown] mirabegron 25 mg tablet,extended release 24 hr (Myrbetriq) 25 mg PO Q24H Bladder 10/15/23 [History Last Taken Unknown] montelukast 10 mg tablet 10 mg PO DAILY Wheezing 10/15/23 [History Last Taken Unknown] niacin 1,000 mg tablet,extended release 24 hr 1,000 mg PO DAILY cholesterol 10/15/23 [History Last Taken Unknown] oxybutynin chloride 10 mg tablet,extended release 24 hr 10 mg PO DAILY Bladder 10/15/23 [History Last Taken Unknown] sitagliptin phosphate 50 mg-metformin 1,000 mg tablet (Janumet) 1 tab PO DAILY Glucose 10/15/23 [History Last Taken Unknown] amoxicillin 875 mg-potassium clavulanate 125 mg tablet 1 tab PO Q12H 5 days #10 tabs 10/19/23 [Rx Last Taken Unknown] hydrocodone-acetaminophen 5-325mg 5mg-325mg 1 tab PO Q6H PRN pain 3 days #10 tabs 10/19/23 [Rx Last Taken Unknown] hydrocodone-acetaminophen 5-325mg 5mg-325mg 1 tab PO Q6H PRN PRN Pain 3 days #10 TABLETS 01/12/24 [Rx Last Taken Unknown] Allergy/AdvReac Type Severity Reaction Status Date / Time No Known Allergies Allergy Verified 01/12/24 19:36 Family History Mother Cancer Diabetes Father Heart disease Surgical History S/P laparoscopic cholecystectomy S/P left knee arthroscopy Social History household members: none Smoking Status: Former smoker how long ago did patient quit smoking: Smoked age 22-until 30 years old, 1 ppd until quit. alcohol intake: never substance use type: does not use ROS ROS ED Constitutional Constitutional ED: Denies chills, fever(s), subjective, sweats or weight loss Eyes Eyes: Denies blurry vision, change in vision or diplopia ENT ENT ED: Denies ear pain, rhinorrhea or sore throat Cardiovascular Cardiovascular: Denies chest pain or palpitations Respiratory/Chest Respiratory/Chest: Denies cough, dyspnea or dyspnea on exertio (more content not included)... Normal [facility] Shoulder min 2 Viewson 01-11 Shoulder min 2 Views [facility] Imaging Services [address] [place] [address] Shoulder min 2 Views MR#: [id number] Acct: [id number] Name: PENNY MCKEON Rep #: [id number] : 1945 F 78 From: Jhonatan Mendoza MD PCP: Dr. Laura Bowden, DO Status: DEP ER Study: Shoulder min 2 Views Date of Exam: 01/12/24 Exam# [id number] Ordering Dr: Dandy Bueno MD [id number] STUDY: X-RAY - RIGHT SHOULDER REASON FOR EXAM: Female, 78 years old. FALL TECHNIQUE: 4 view(s) of the shoulder. COMPARISON: None. FINDINGS: Narrowed glenohumeral articulation and narrowing of the subacromial space.. Normal acromioclavicular joint. Normal acromion. Normal humeral head and visualized proximal humerus. Periarticular calcification consistent with calcific tendinitis. Normal visualized pulmonary apex. RAD/Shoulder min 2 Views IMPRESSION: Degenerative changes. No acute fracture or dislocation. Electronically Signed: Jhonatan Mendoza MD at 20:15 EDT Reading Location ID and State: [address] [place] [address] Tel , Service support , CC: Dr. Laura Bowden DO; Dr. Dandy Bueno MD Java Programmer Analyst: Signed Normal [facility] Wrist min 3 Viewson 01-12-20 Wrist min 3 Views [facility] Services [address] [place] [address] Wrist min 3 Views MR#: [id number] Acct: [id number] Name: PENNY MCKEON Rep #: [id number] : 1945 F 78 From: Jhonatan Mendoza MD PCP: Dr. Laura Bowden DO Status: DEP ER Study: Wrist min 3 Views Date of Exam: 01/12/24 Exam# [id number] Ordering Dr: Dandy Bueno MD [id number] STUDY: X-RAY - RIGHT WRIST REASON FOR EXAM: Female, 78 years old. FALL TECHNIQUE: 3 view(s) of the wrist were obtained. COMPARISON: None. FINDINGS: Normal visualized distal radius and ulna. Narrowed radiocarpal articulation. Normal distal radioulnar articulation. Normal carpal bones. Normal carpal articulations. Normal carpometacarpal articulation of the thumb. Normal second through fifth carpometacarpal articulations. Normal visualized metacarpal bones. Calcification of the triangular fibrocartilage.. RAD/Wrist min 3 Views IMPRESSION: Arthritic changes. No acute fracture or dislocation Electronically Signed: Jhonatan Mendoza MD at 20:20 EDT , CC: Dr. Laura Bowden DO; Dr. Dandy Bueno MD Java Programmer Analyst: Signed Normal [facility] Hepatobilliary Imagingon Hepatobilliary Imaging [facility] Imaging Services [address] [place] [address] Hepatobilliary Imaging MR#: [id number] Acct: [id number] Name: PENNY MCKEON Rep #: [id number] : 1945 F 78 From: Teo Waterman PCP: Dr. Laura Bowden DO Status: [facility] Study: Hepatobilliary Imaging Date of Exam: 10/28/23 Exam# [id number] Ordering Dr: Brandie Jose P A-C [id number] CLINICAL: 78-year-old female with history of recent cholecystectomy with postoperative pain and suspected bile leak. RADIONUCLIDE HEPATOBILIARY SCINTIGRAPHY COMPARISON: None available FINDINGS: Following the intravenous administration of 5.4 mCi of 99m Tc Mebrofenin, hepatobiliary images reveal: 1. Relatively prompt and homogeneous radiopharmaceutical concentration is noted by a normal sized liver. No parenchymal defects are identified. 2. Gallbladder activity is not identified during 60 minutes of sequential imaging commensurate with known history of prior cholecystectomy. 3. Small intestinal tract is observed at 11 minutes post radiopharmaceutical administration. 4. Washout of the radiopharmaceutical by the hepatic parenchyma appears qualitatively normal. 5. There is no evidence of a visualized bile leak identified during 60 minutes of sequential imaging. NM/Hepatobilliary Imaging IMPRESSION: 1. Nonvisualization of the gallbladder is consistent with prior cholecystectomy. 2. There is no scintigraphic evidence of bile leak on the current examination. Electronically Signed: Teo Perdomo DO at 9:52 EST , CC: KHAI Jose; Dr. Laura Bowden DO Java Programmer Analyst: Signed Normal [facility] Surgery Visit Reporton 10-28 Surgery Visit Report [facility] [address] [place] [address]. [address] [place] [address] OFFICE VISIT Date of Service: 10/28/23 MR#: [id number] Acct: [id number] Name: PENNY MCKEON Rep #: [id number] : 1945 Provider: Dr. 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 Required: No Accompanied by: Daughter Is patient in pain?: No Allergies No Known Allergies Allergy (Verified 10/28/23 09:50) Medications aspirin 81 mg tablet,delayed release (Adult Aspirin Regimen) 81 mg PO DAILY Blood thinner 10/15/23 [History Confirmed 10/28/23] atorvastatin 20 mg tablet 20 mg PO DAILY cholesterol 10/15/23 [History Confirmed 10/28/23] carvedilol 25 mg tablet 25 mg PO Q12H Blood pres 10/15/23 [History Confirmed 10/28/23] cetirizine 10 mg tablet 10 mg PO DAILY Allergies 10/15/23 [History Confirmed 10/28/23] cholestyramine-aspartame 4 gram oral powder for susp in a packet (Cholestyramine Light) 1 ea PO DAILY cholesterol 10/15/23 [History Confirmed 10/28/23] empagliflozin 25 mg tablet (Jardiance) 25 mg PO DAILY Glucose control 10/15/23 [History Confirmed 10/28/23] ergocalciferol (vitamin D2) 1,250 mcg (50,000 unit) capsule 1,250 mcg PO DAILY Vit D 10/15/23 [History Confirmed 10/28/23] escitalopram oxalate 20 mg tablet 20 mg PO DAILY Anxiety 10/15/23 [History Confirmed 10/28/23] fenofibrate nanocrystallized 145 mg tablet 145 mg PO DAILY cholesterol 10/15/23 [History Confirmed 10/28/23] levothyroxine 50 mcg tablet 50 mcg PO DAILY thyroid 10/15/23 [History Confirmed 10/28/23] mirabegron 25 mg tablet,extended release 24 hr (Myrbetriq) 25 mg PO Q24H Bladder 10/15/23 [History Confirmed 10/28/23] montelukast 10 mg tablet 10 mg PO DAILY Wheezing 10/15/23 [History Confirmed 10/28/23] niacin 1,000 mg tablet,extended release 24 hr 1,000 mg PO DAILY cholesterol 10/15/23 [History Confirmed 10/28/23] oxybutynin chloride 10 mg tablet,extended release 24 hr 10 mg PO DAILY Bladder 10/15/23 [History Confirmed 10/28/23] sitagliptin phosphate 50 mg-metformin 1,000 mg tablet (Janumet) 1 tab PO DAILY Glucose 10/15/23 [History Confirmed 10/28/23] amoxicillin 875 mg-potassium clavulanate 125 mg tablet 1 tab PO Q12H 5 days #10 tabs 10/19/23 [Rx Confirmed 10/28/23] hydrocodone-acetaminophen 5-325mg 5mg-325mg 1 tab PO Q6H PRN pain 3 days #10 tabs 10/19/23 [Rx Confirmed 10/28/23] Subjective Details: Patient presents for second postoperative visit following laparoscopic subtotal cholecystectomy. He presents today again with her daughter. Together they share that they have been observing the drain output clear in character. He denies any fevers or chills. They have come directly from obtaining the requested HIDA imaging. The only pain that Mrs. Mckeon describes is that which is localized right around her drain exit site in her right upper quadrant. Patient presents following [laparoscopic appendectomy/cholecystecto my] on [date]. Since hospital discharge they have been doing [well/poorly/other]. They report [minimal/significant/other ] postoperative pain. They report use of pain medication for [number] days postop. They report [tolerance/intolerance] of a diet. Concerning their bowel movements, they report that these have [normalized/become loose /other ]. They [have/do not have] wound concerns []. Objective Details: Constitutional: No acute distress, cooperative/appreciative Abdomen: Obese, Steri-Strips remain intact over port site incisions which remain well-approximated. There is no drainage apart from some crusted drainage around patient's operative drain which is largely serous in character and does not show many bubbles when agitated. Coding Level of Care Code Global Post Op Diagnoses S/P laparoscopic cholecystectomy Z90.49 [facility] Medical History (Updated 10/27/23 @ 00:14 by Cely Friend) Allergic rhinitis Anxiety and depression CKD (chronic kidney disease) Hyperlipidemia Hypertension Hypothyroidism Morbid obesity Type 2 diabetes mellitus Surgical History (Updated 10/25/23 @ 07:25 by Meron Taylor) S/P laparoscopic cholecystectomy S/P left knee arthroscopy Family History (Updated 10/15/23 @ 20:[address] Enma Otoole MD) Mother Cancer Diabetes Father Heart disease Social History (Updated 10/15/23 @ 20:[address] Enma Otoole MD) household members: none Smoking Status: Former smoker how long ago did patient quit smoking: Smoked age 22-until 30 years old, 1 ppd until quit. alcohol intake: never substance use type: does not use Assessment and Plan (No Qualifiers) Assessment and Plan (1) S/P laparoscopic cholecystectomy: Status: Acute Plan: Drain is patent with serous output???s (more content not included)... Normal [facility] Surgery Visit Reporton 10-25 Surgery Visit Report [facility] [address] [place] [address]. [address] [place] [address] OFFICE VISIT Date of Service: 10/25/23 MR#: [id number] Acct: [id number] Name: PENNY MCKEON Leona Rep #: [id number] : 1945 Provider: KHAI de guzman Age/Sex: 78/F Location: [facility] Status: Signed Intake Vital Signs 10/18/23 14:28 Height 5 ft 4 in Intake Visit Reasons: INFECTED TUBE Chief Complaint: ABBEI drain issues Is patient in pain?: No Allergies No Known Allergies Allergy (Verified 10/25/23 07:21) Medications aspirin 81 mg tablet,delayed release (Adult Aspirin Regimen) 81 mg PO DAILY Blood thinner 10/15/23 [History Confirmed 10/25/23] atorvastatin 20 mg tablet 20 mg PO DAILY cholesterol 10/15/23 [History Confirmed 10/25/23] carvedilol 25 mg tablet 25 mg PO Q12H Blood pres 10/15/23 [History Confirmed 10/25/23] cetirizine 10 mg tablet 10 mg PO DAILY Allergies 10/15/23 [History Confirmed 10/25/23] cholestyramine-aspartame 4 gram oral powder for susp in a packet (Cholestyramine Light) 1 ea PO DAILY cholesterol 10/15/23 [History Confirmed 10/25/23] empagliflozin 25 mg tablet (Jardiance) 25 mg PO DAILY Glucose control 10/15/23 [History Confirmed 10/25/23] ergocalciferol (vitamin D2) 1,250 mcg (50,000 unit) capsule 1,250 mcg PO DAILY Vit D 10/15/23 [History Confirmed 10/25/23] escitalopram oxalate 20 mg tablet 20 mg PO DAILY Anxiety 10/15/23 [History Confirmed 10/25/23] fenofibrate nanocrystallized 145 mg tablet 145 mg PO DAILY cholesterol 10/15/23 [History Confirmed 10/25/23] levothyroxine 50 mcg tablet 50 mcg PO DAILY thyroid 10/15/23 [History Confirmed 10/25/23] mirabegron 25 mg tablet,extended release 24 hr (Myrbetriq) 25 mg PO Q24H Bladder 10/15/23 [History Confirmed 10/25/23] montelukast 10 mg tablet 10 mg PO DAILY Wheezing 10/15/23 [History Confirmed 10/25/23] niacin 1,000 mg tablet,extended release 24 hr 1,000 mg PO DAILY cholesterol 10/15/23 [History Confirmed 10/25/23] oxybutynin chloride 10 mg tablet,extended release 24 hr 10 mg PO DAILY Bladder 10/15/23 [History Confirmed 10/25/23] sitagliptin phosphate 50 mg-metformin 1,000 mg tablet (Janumet) 1 tab PO DAILY Glucose 10/15/23 [History Confirmed 10/25/23] amoxicillin 875 mg-potassium clavulanate 125 mg tablet 1 tab PO Q12H 5 days #10 tabs 10/19/23 [Rx Confirmed 10/25/23] hydrocodone-acetaminophen 5-325mg 5mg-325mg 1 tab PO Q6H PRN pain 3 days #10 tabs 10/19/23 [Rx Confirmed 10/25/23] Subjective Details: Patient is a 78 y/o F I am following s/p laparoscopic subtotal cholecystectomy with liver biopsy and ABBIE drain placement by Dr. Roy on 10/18/23. Patient tolerated the procedure well. She was discharged to home with the drain in place. She denies any abdominal pain. She notes discomfort at the drain site. Patient's daughter contacted our office yesterday noting more debris within the bulb than what they had been seeing. She also noted that the drainage has picked up around the drain onto the gauze dressing. Patient notes she has been staying on a low fat diet. She seems less jaundice to her family. She denies nausea, vomiting, fever. No output record was provided today. Today was more of an urgent appointment. Patient's daughter also notes that she has been stripping the drain. Objective Details: Abdomen- obese, soft, incisions c/d/i. No erythema or infection noted. Moderate amount of ecchymosis noted. ABBIE drain intact. Moderate amount of debris within the bulb along with brownish fluid consistent with a bile appearance. Drain dressing was reapplied followed by dry gauze and secured with tape. Coding Level of Care Code Global Post Op Diagnoses S/P laparoscopic cholecystectomy Z90.49 [facility] Medical History Allergic rhinitis Anxiety and depression CKD (chronic kidney disease) Hyperlipidemia Hypertension Hypothyroidism Morbid obesity Type 2 diabetes mellitus Surgical History (Updated 10/25/23 @ 07:25 by Meron Taylor) S/P laparoscopic cholecystectomy S/P left knee arthroscopy Family History (Updated 10/15/23 @ 20:[address] Enma Otoole MD) Mother Cancer Diabetes Father Heart disease Social History (Updated 10/15/23 @ 20:[address] Enma Otoole MD) household members: none Smoking Status: Former smoker how long ago did patient quit smoking: Smoked age 22-until 30 years old, 1 ppd until quit. alcohol intake: never substance use type: does not use Assessment and Plan (No Qualifiers) Assessment and Plan (1) S/P laparoscopic cholecystectomy: Status: Acute Plan: Dr. Roy also evaluated this patient Drain seems patent with approximately 30 cc of fluid currently within the bulb. ABBIE drain remains Recommend a HIDA scan to evaluate for possible bile leak If bile leak is noted, patient will need a referral to (more content not included)... Normal [facility] AFP, Tumor Markeron 10-19-19 AFP TUMOR EWA < 1.8 Normal 0.0-9.2 [facility] Comment on above: Result Comment: [employer] Electrochemiluminescence Immunoassay (ECLIA) Values obtained with different assay methods or kits cannot be used interchangeably. Results cannot be interpreted as absolute evidence of the presence or absence of malignant disease. This test is not interpretable in females. Performed By: #### L 3300.0700, L3410.2350, L3400.3800, L503.6030, L800.1280, L100.9950, L3100.3425, L803.2200, L3900.2100, L3000.0375, L503.6550, L3100.5440, L3100.5850 ####[facility] [id number] [place], [address] GILMA Comprehensive Panelon GILMA TABLE Comment Normal . [facility] Comment on above: Result Comment: Auto antibody Disease Association Condition Frequency --------- Antinuclear Antibody, SLE, mixed connective Direct (GILMA-D) tissue diseases --------- dsDNA SLE 40 - 60% --------- Chromatin Drug induced SLE 90% SLE 48 - 97% --------- SSA (Ro) SLE 25 - 35% Sjogren's Syndrome 40 - 70% Lupus 100% --------- SSB (La) SLE 10% Sjogren's Syndrome 30% --------- Sm (anti-Lawrence) SLE 15 - 30% --------- BURNING PLANT OPERATOR Mixed Connective Tissue Disease 95% (U1 nRNP, SLE 30 - 50% anti-ribonucleoprotein) Polymyositis and/or Dermatomyositis 20% --------- Scl-70 (antiDNA Scleroderma (diffuse) 20 - 35% topoisomerase) Crest 13% --------- Janette-1 Polymyositis and/or Dermatomyositis 20 - 40% --------- Centromere B Scleroderma - Crest variant 80% Performed By: #### L 3300.0700, L3410.2350, L3400.3800, L503.6030, L800.1280, L100.9950, L3100.3425, L803.2200, L3900.2100, L3000.0375, L503.6550, L3100.5440, L3100.5850 #### [facility] [address] [place], [address] ANTI-CENT B AB <0.2 Normal 0.0-0.9 [facility] Comment on above: Performed By: #### L 3300.0700, L3410.2350, L3400.3800, L503.6030, L800.1280, L100.9950, L3100.3425, L803.2200, L3900.2100, L3000.0375, L503.6550, L3100.5440, L3100.5850 #### [facility] [address] [place], [address] ANTI-DNA (DS)AB <1 Normal 0-9 [facility] Comment on above: Result Comment: Nega tive <5 Equivocal 5 - 9 Positive >9 Performed By: #### L 3300.0700, L3410.2350, L3400.3800, L503.6030, L800.1280, L100.9950, L3100.3425, L803.2200, L3900.2100, L3000.0375, L503.6550, L3100.5440, L3100.5850 #### [facility] [address] [place], [address] ANTI-JANETTE-1 <0.2 Normal 0.0-0.9 [facility] Comment on above: Performed By: #### L 3300.0700, L3410.2350, L3400.3800, L503.6030, L800.1280, L100.9950, L3100.3425, L803.2200, L3900.2100, L3000.0375, L503.6550, L3100.5440, L3100.5850 #### [facility] [address] [facility] [place], [address] ANTI-SS-A < 0.2 Normal 0.0-0.9 [facility] Comment on above: Performed By: #### L 3300.0700, L3410.2350, L3400.3800, L503.6030, L800.1280, L100.9950, L3100.3425, L803.2200, L3900.2100, L3000.0375, L503.6550, L3100.5440, L3100.5850 #### [facility] [address] [place], [address] Anti-SS-B < 0.2 Normal 0.0-0.9 [facility] Comment on above: Performed By: #### L 3300.0700, L3410.2350, L3400.3800, L503.6030, L800.1280, L100.9950, L3100.3425, L803.2200, L3900.2100, L3000.0375, L503.6550, L3100.5440, L3100.5850 #### [facility] [address] [place], [address] ANTICHROMATIN <0.2 Normal 0.0-0.9 [facility] Comment on above: Performed By: #### L 3300.0700, L3410.2350, L3400.3800, L503.6030, L800.1280, L100.9950, L3100.3425, L803.2200, L3900.2100, L3000.0375, L503.6550, L3100.5440, L3100.5850 #### [facility] [address] [place], [place], [id number] ANTISCLERODERM <0.2 Normal 0.0-0.9 [facility] Comment on above: Performed By: #### L 3300.0700, L3410.2350, L3400.3800, L503.6030, L800.1280, L100.9950, L3100.3425, L803.2200, L3900.2100, L3000.0375, L503.6550, L3100.5440, L3100.5850 #### [facility] [address] [place], [place], [id number] BURNING PLANT OPERATOR Ab <0.2 Normal 0.0-0.9 [facility] Comment on above: Performed By: #### L 3300.0700, L3410.2350, L3400.3800, L503.6030, L800.1280, L100.9950, L3100.3425, L803.2200, L3900.2100, L3000.0375, L503.6550, L3100.5440, L3100.5850 #### [facility] [address] [place], [place], [id number] LAWRENCE Ab <0.2 Normal 0.0-0.9 [facility] Comment on above: Performed By: #### L 3300.0700, L3410.2350, L3400.3800, L503.6030, L800.1280, L100.9950, L3100.3425, L803.2200, L3900.2100, L3000.0375, L503.6550, L3100.5440, L3100.5850 #### [facility] [address] [place], [address] Absolute lymphocyte countOrd ered By: Tirso Friend on 10-19-2023 Lymphocytes Auto (Unsp spec) [#/Vol] 1.17 10*3/uL 0.83-4.51 [facility] Alpha Antitrypsin Serumon ALPHA1 ANTITRYP 206 mg/dL Abnormal 101-187 [facility] Comment on above: Result Comment: Perf ormed at: [facility] [address] [id number] Powerbuilder: Brijesh Posadas PhD, Phone: [phone] Performed By: #### L 3300.0700, L3410.2350, L3400.3800, L503.6030, L800.1280, L100.9950, L3100.3425, L803.2200, L3900.2100, L3000.0375, L503.6550, L3100.5440, L3100.5850 #### [facility] [address] [place], [address] Anti-Mitochondrial ABon 10-03 ANTIMITOCHON AB <20.0 Normal 0.0-20.0 [facility] Comment on above: Result Comment: Nega tive 0.0 - 20.0 Equivocal 20.1 - 24.9 Positive >24.9 Mitochondrial (M2) Antibodies are found in 90-96% of patients with primary biliary cirrhosis. Performed By: #### L 3300.0700, L3410.2350, L3400.3800, L503.6030, L800.1280, L100.9950, L3100.3425, L803.2200, L3900.2100, L3000.0375, L503.6550, L3100.5440, L3100.5850 #### [facility] [address] [place], [address] Anti-Smooth Muscle ABSon ANTISMOOTH MUSC 2 Units Normal 0-19 [facility] Comment on above: Result Comment: Nega tive 0 - 19 Weak positive 20 - 30 Moderate to strong positive >30 Actin Antibodies are found in 52-85% of patients with autoimmune hepatitis or chronic active hepatitis and in 22% of patients with primary biliary cirrhosis. Performed By: #### L 3300.0700, L3410.2350, L3400.3800, L503.6030, L800.1280, L100.9950, L3100.3425, L803.2200, L3900.2100, L3000.0375, L503.6550, L3100.5440, L3100.5850 #### [facility] [address] [place], [address] Automated lymphocyte count a s percentage of total leukocytesOrdered By: Tirso Friend on 10-19-2023 Lymphocytes/100 WBC Auto (Unsp spec) 7.8 % 19-41 [facility] Basophil percentageOrdered B y: Tirso Friend on 10-19-2023 Bilirubin [Mass/Vol] 4.90 mg/dL 0.20-1.00 [facility] Comment on above: For patients on eltr ombopag therapy, use of Dimension [place] TBIL is not recommended. Chloride [Moles/Vol] 108 mmol/L 98-107 [facility] Glucose [Mass/Vol] 178 mg/dL 74-106 [facility] Comment on above: Fasting Glucose resu lt greater than or equal to 126 mg/dL suggests DIABETES MELLITUS per A.D.A. criteria. Potassium [Moles/Vol] 3.9 mmol/L 3.5-5.1 [facility] Comment on above: Slight Hemolysis, Re sult may be falsely increased. Protein [Mass/Vol] 6.5 g/dL 6.4-8.2 [facility] Sodium [Moles/Vol] 132 mmol/L 136-145 [facility] Basophils/100 WBC (Bld) 0.2 % 0-1 [facility] Eosinophils/100 WBC (Bld) 0.0 % 0-5 [facility] Hemoglobin (Bld) [Mass/Vol] 11.1 g/dL 12.0-15.0 [facility] Monocytes/100 WBC (Bld) 5.2 % 0-10 [facility] Neutrophils (Bld) [#/Vol] 12.9 10*3/uL 2.0-7.7 [facility] Neutrophils/100 WBC (Bld) 85.5 % 47-70 [facility] WBC (Bld) [#/Vol] 15.1 10*3/uL 4.4-11.0 [facility] Bedside Glucoseon 10-19-2023 FINGERSTICK GLU 262 mg/dL High 74-106 [facility] Comment on above: Result Comment: JORDAN GEMENT OF PATIENT CARE PER NURSING PROTOCOL Performed By: #### L 3300.0700, L3410.2350, L3400.3800, L503.6030, L800.1280, L100.9950, L3100.3425, L803.2200, L3900.2100, L3000.0375, L503.6550, L3100.5440, L3100.5850 #### [facility] [address] [place], [place], [id number] FINGERSTICK GLU 179 mg/dL High 74-106 [facility] Comment on above: Result Comment: JORDAN GEMENT OF PATIENT CARE PER NURSING PROTOCOL Performed By: #### L 501.080 ####[facility] [address] [place], [place], [id number] CBC W/Diff, Automatedon 10-03 Absolute Lymph 1.17 X10 3/uL Normal 0.83-4.51 [facility] Comment on above: Performed By: #### L 3300.0700, L3410.2350, L3400.3800, L503.6030, L800.1280, L100.9950, L3100.3425, L803.2200, L3900.2100, L3000.0375, L503.6550, L3100.5440, L3100.5850 #### [facility] [address] [place], [address] Absolute Neut 12.9 X10 3/uL High 2.0-7.7 [facility] Comment on above: Performed By: #### L 3300.0700, L3410.2350, L3400.3800, L503.6030, L800.1280, L100.9950, L3100.3425, L803.2200, L3900.2100, L3000.0375, L503.6550, L3100.5440, L3100.5850 #### [facility] [address] [place], [address] Basophils/100 WBC (Bld) 0.2 % Normal 0-1 [facility] Comment on above: Performed By: #### L 3300.0700, L3410.2350, L3400.3800, L503.6030, L800.1280, L100.9950, L3100.3425, L803.2200, L3900.2100, L3000.0375, L503.6550, L3100.5440, L3100.5850 #### [facility] [address] [place], [address] Eosinophils/100 WBC (Bld) 0.0 % Normal 0-5 [facility] Comment on above: Performed By: #### L 3300.0700, L3410.2350, L3400.3800, L503.6030, L800.1280, L100.9950, L3100.3425, L803.2200, L3900.2100, L3000.0375, L503.6550, L3100.5440, L3100.5850 #### [facility] [address] [place], [address] Erythrocyte distribution width (RBC) [Ratio] 15.9 % High 11.6-14.6 [facility] Comment on above: Performed By: #### L 3300.0700, L3410.2350, L3400.3800, L503.6030, L800.1280, L100.9950, L3100.3425, L803.2200, L3900.2100, L3000.0375, L503.6550, L3100.5440, L3100.5850 #### [facility] [address] [place], [place], [address] Hematocrit (Bld) [Volume fraction] 33.3 % Low 37-47 [facility] Comment on above: Performed By: #### L 3300.0700, L3410.2350, L3400.3800, L503.6030, L800.1280, L100.9950, L3100.3425, L803.2200, L3900.2100, L3000.0375, L503.6550, L3100.5440, L3100.5850 #### [facility] [address] [place], [address] Hemoglobin (Bld) [Mass/Vol] 11.1 g/dL Low 12.0-15.0 [facility] Comment on above: Performed By: #### L 3300.0700, L3410.2350, L3400.3800, L503.6030, L800.1280, L100.9950, L3100.3425, L803.2200, L3900.2100, L3000.0375, L503.6550, L3100.5440, L3100.5850 #### [facility] [address] [place], [address] IG% 1.300 High 0.0-0.9 [facility] Comment on above: Result Comment: IG% - Immature Granulocytes (promyelocytes, myelocytes and metamyelocytes) > 1% indicates that a LEFT SHIFT is Present. Performed By: #### L 3300.0700, L3410.2350, L3400.3800, L503.6030, L800.1280, L100.9950, L3100.3425, L803.2200, L3900.2100, L3000.0375, L503.6550, L3100.5440, L3100.5850 #### [facility] [address] [place], [address] Lymphocytes/100 WBC (Bld) 7.8 % Low 19-41 [facility] Comment on above: Performed By: #### L 3300.0700, L3410.2350, L3400.3800, L503.6030, L800.1280, L100.9950, L3100.3425, L803.2200, L3900.2100, L3000.0375, L503.6550, L3100.5440, L3100.5850 #### [facility] [address] [place], [address] MCH (RBC) [Entitic mass] 31.5 pg Normal 27.0-32.0 [facility] Comment on above: Performed By: #### L 3300.0700, L3410.2350, L3400.3800, L503.6030, L800.1280, L100.9950, L3100.3425, L803.2200, L3900.2100, L3000.0375, L503.6550, L3100.5440, L3100.5850 #### [facility] [address] [place], [address] MCHC (RBC) [Mass/Vol] 33.3 g/dL Normal 32-36 [facility] Comment on above: Performed By: #### L 3300.0700, L3410.2350, L3400.3800, L503.6030, L800.1280, L100.9950, L3100.3425, L803.2200, L3900.2100, L3000.0375, L503.6550, L3100.5440, L3100.5850 #### [facility] [address] [place], [address] MCV (RBC) [Entitic vol] 94.6 fL Normal 81-99 [facility] Comment on above: Performed By: #### L 3300.0700, L3410.2350, L3400.3800, L503.6030, L800.1280, L100.9950, L3100.3425, L803.2200, L3900.2100, L3000.0375, L503.6550, L3100.5440, L3100.5850 #### [facility] [address] [place], [address] Monocytes/100 WBC (Bld) 5.2 % Normal 0-10 [facility] Comment on above: Performed By: #### L 3300.0700, L3410.2350, L3400.3800, L503.6030, L800.1280, L100.9950, L3100.3425, L803.2200, L3900.2100, L3000.0375, L503.6550, L3100.5440, L3100.5850 #### [facility] [address] [place], [address] Neutrophils/100 WBC (Bld) 85.5 % High 47-70 [facility] Comment on above: Performed By: #### L 3300.0700, L3410.2350, L3400.3800, L503.6030, L800.1280, L100.9950, L3100.3425, L803.2200, L3900.2100, L3000.0375, L503.6550, L3100.5440, L3100.5850 #### [facility] [address] [place], [address] Nucleated RBC (Bld) [#/Vol] 0 10*3/uL Normal 0-5 [facility] Comment on above: Performed By: #### L 3300.0700, L3410.2350, L3400.3800, L503.6030, L800.1280, L100.9950, L3100.3425, L803.2200, L3900.2100, L3000.0375, L503.6550, L3100.5440, L3100.5850 #### [facility] [address] [place], [address] Platelet mean volume (Bld) [Entitic vol] 11.2 fL Normal 6.2-12.0 [facility] Comment on above: Performed By: #### L 3300.0700, L3410.2350, L3400.3800, L503.6030, L800.1280, L100.9950, L3100.3425, L803.2200, L3900.2100, L3000.0375, L503.6550, L3100.5440, L3100.5850 #### [facility] [address] [place], [address] Platelets (Bld) [#/Vol] 191 10*3/uL Normal 150-450 [facility] Comment on above: Performed By: #### L 3300.0700, L3410.2350, L3400.3800, L503.6030, L800.1280, L100.9950, L3100.3425, L803.2200, L3900.2100, L3000.0375, L503.6550, L3100.5440, L3100.5850 #### [facility] [address] [place], [address] RBC (Bld) [#/Vol] 3.52 10*6/uL Low 4.2-5.4 [facility] Comment on above: Performed By: #### L 3300.0700, L3410.2350, L3400.3800, L503.6030, L800.1280, L100.9950, L3100.3425, L803.2200, L3900.2100, L3000.0375, L503.6550, L3100.5440, L3100.5850 #### [facility] [address] [place], [place], [id number] RDW SD 54.3 fl High 35.1-43.9 [facility] Comment on above: Performed By: #### L 3300.0700, L3410.2350, L3400.3800, L503.6030, L800.1280, L100.9950, L3100.3425, L803.2200, L3900.2100, L3000.0375, L503.6550, L3100.5440, L3100.5850 #### [facility] [address] [place], [address] WBC (Bld) [#/Vol] 15.1 10*3/uL High 4.4-11.0 [facility] Comment on above: Performed By: #### L 3300.0700, L3410.2350, L3400.3800, L503.6030, L800.1280, L100.9950, L3100.3425, L803.2200, L3900.2100, L3000.0375, L503.6550, L3100.5440, L3100.5850 #### [facility] [address] [place], [address] Celiac AB,Comprehensiveon ANTIGLIADIN IGA 5 units Normal 0-19 [facility] Comment on above: Result Comment: Nega tive 0 - 19 Weak Positive 20 - 30 Moderate to Strong Positive >30 Performed By: #### L 3300.0700, L3410.2350, L3400.3800, L503.6030, L800.1280, L100.9950, L3100.3425, L803.2200, L3900.2100, L3000.0375, L503.6550, L3100.5440, L3100.5850 ####[facility] [address] [place], [address] ANTIGLIADIN IGG 2 units Normal 0-19 [facility] Comment on above: Result Comment: Nega tive 0 - 19 Weak Positive 20 - 30 Moderate to Strong Positive >30 Performed By: #### L 3300.0700, L3410.2350, L3400.3800, L503.6030, L800.1280, L100.9950, L3100.3425, L803.2200, L3900.2100, L3000.0375, L503.6550, L3100.5440, L3100.5850 ####[facility] [address] [place], [address] ENDOMYSIAL IGA Negative Normal Negative [facility] Comment on above: Result Comment: Note : Specimen is icteric. Performed By: #### L 3300.0700, L3410.2350, L3400.3800, L503.6030, L800.1280, L100.9950, L3100.3425, L803.2200, L3900.2100, L3000.0375, L503.6550, L3100.5440, L3100.5850 ####[facility] [address] [place], [address] tTG IGA <2 Normal 0-3 [facility] Comment on above: Result Comment: Nega tive 0 - 3 Weak Positive 4 - 10 Positive >10 Tissue Transglutaminase (tTG) has been identified as the endomysial antigen. Studies have demonstr- ated that endomysial IgA antibodies have over 99% specificity for gluten sensitive enteropathy. Performed By: #### L 3300.0700, L3410.2350, L3400.3800, L503.6030, L800.1280, L100.9950, L3100.3425, L803.2200, L3900.2100, L3000.0375, L503.6550, L3100.5440, L3100.5850 ####[facility] [address] [place], [address] tTG IGG <2 Normal 0-5 [facility] Comment on above: Result Comment: Nega tive 0 - 5 Weak Positive 6 - 9 Positive >9 Performed By: #### L 3300.0700, L3410.2350, L3400.3800, L503.6030, L800.1280, L100.9950, L3100.3425, L803.2200, L3900.2100, L3000.0375, L503.6550, L3100.5440, L3100.5850 ####[facility] [address] [place], [place], [address] Comprehensive Metabolic Prof ilon 10-19-2023 Albumin [Mass/Vol] 2.3 g/dL Low 3.2-5.0 [facility] Comment on above: Order Comment: REDRA W. PREVIOUS SPECIMEN WAS REJECTED FOR TESTING DUE TOHEMOLYSIS. SPECIMEN WAS DISCARDED. 10/19/23 0836 Chassie LCrytzer. Performed By: #### L 3300.0700, L3410.2350, L3400.3800, L503.6030, L800.1280, L100.9950, L3100.3425, L803.2200, L3900.2100, L3000.0375, L503.6550, L3100.5440, L3100.5850 #### [facility] [address] [place], [place], [id number] Albumin/Globulin [Mass ratio] 0.5 {ratio} Low 0.9-2.4 [facility] Comment on above: Order Comment: REDRA W. PREVIOUS SPECIMEN WAS REJECTED FOR TESTING DUE TOHEMOLYSIS. SPECIMEN WAS DISCARDED. 10/19/23 0836 Chassie LCrytzer. Performed By: #### L 3300.0700, L3410.2350, L3400.3800, L503.6030, L800.1280, L100.9950, L3100.3425, L803.2200, L3900.2100, L3000.0375, L503.6550, L3100.5440, L3100.5850 #### [facility] [address] [place], [place], [address] ALK P 351 U/L High 45-117 [facility] Comment on above: Order Comment: REDRA W. PREVIOUS SPECIMEN WAS REJECTED FOR TESTING DUE TOHEMOLYSIS. SPECIMEN WAS DISCARDED. 10/19/23 0836 Chassie LCrytzer. Performed By: #### L 3300.0700, L3410.2350, L3400.3800, L503.6030, L800.1280, L100.9950, L3100.3425, L803.2200, L3900.2100, L3000.0375, L503.6550, L3100.5440, L3100.5850 #### [facility] [address] [facility] [address] [place], [place], [phone] ALT [Catalytic activity/Vol] 192 U/L High 13-56 [facility] Comment on above: Order Comment: REDRA W. PREVIOUS SPECIMEN WAS REJECTED FOR TESTING DUE TOHEMOLYSIS. SPECIMEN WAS DISCARDED. 10/19/23 0836 Chassie LCrytzer. Performed By: #### L 3300.0700, L3410.2350, L3400.3800, L503.6030, L800.1280, L100.9950, L3100.3425, L803.2200, L3900.2100, L3000.0375, L503.6550, L3100.5440, L3100.5850 #### [facility] [address] [facility] [address] [place], [place], [phone] AST [Catalytic activity/Vol] 51 U/L High 15-37 [facility] Comment on above: Order Comment: REDRA W. PREVIOUS SPECIMEN WAS REJECTED FOR TESTING DUE TOHEMOLYSIS. SPECIMEN WAS DISCARDED. 10/19/23 0836 Chassie LCrytzer. Result Comment: Slig ht Hemolysis, Result may be falsely increased. Performed By: #### L 3300.0700, L3410.2350, L3400.3800, L503.6030, L800.1280, L100.9950, L3100.3425, L803.2200, L3900.2100, L3000.0375, L503.6550, L3100.5440, L3100.5850 #### [facility] [address] [place], [address] Bilirubin [Mass/Vol] 4.90 mg/dL High 0.20-1.00 [facility] Comment on above: Order Comment: REDRA W. PREVIOUS SPECIMEN WAS REJECTED FOR TESTING DUE TOHEMOLYSIS. SPECIMEN WAS DISCARDED. 10/19/23 0836 Netaplanssie LCrytzer. Result Comment: For patients on eltrombopag therapy, use of Dimension [place] TBIL is not recommended. Performed By: #### L 3300.0700, L3410.2350, L3400.3800, L503.6030, L800.1280, L100.9950, L3100.3425, L803.2200, L3900.2100, L3000.0375, L503.6550, L3100.5440, L3100.5850 #### [facility] [address] [place], [address] BUN/CRE 12.1 RATIO Normal 10-20 [facility] Comment on above: Order Comment: REDRA W. PREVIOUS SPECIMEN WAS REJECTED FOR TESTING DUE TOHEMOLYSIS. SPECIMEN WAS DISCARDED. 10/19/23 0836 Chassie LCrytzer. Performed By: #### L 3300.0700, L3410.2350, L3400.3800, L503.6030, L800.1280, L100.9950, L3100.3425, L803.2200, L3900.2100, L3000.0375, L503.6550, L3100.5440, L3100.5850 #### [facility] [address] [place], [address] CA,Total 9.3 mg/dL Normal 8.5-10.1 [facility] Comment on above: Order Comment: REDRA W. PREVIOUS SPECIMEN WAS REJECTED FOR TESTING DUE TOHEMOLYSIS. SPECIMEN WAS DISCARDED. 10/19/23 0836 Chassie LCrytzer. Performed By: #### L 3300.0700, L3410.2350, L3400.3800, L503.6030, L800.1280, L100.9950, L3100.3425, L803.2200, L3900.2100, L3000.0375, L503.6550, L3100.5440, L3100.5850 #### [facility] [address] [place], [address] Chloride [Moles/Vol] 108 mmol/L High 98-107 [facility] Comment on above: Order Comment: REDRA W. PREVIOUS SPECIMEN WAS REJECTED FOR TESTING DUE TOHEMOLYSIS. SPECIMEN WAS DISCARDED. 10/19/23835 LDR Holding LCrytzer. Performed By: #### L 3300.0700, L3410.2350, L3400.3800, L503.6030, L800.1280, L100.9950, L3100.3425, L803.2200, L3900.2100, L3000.0375, L503.6550, L3100.5440, L3100.5850 #### [facility] [address] [place], [address] CO2 [Moles/Vol] 17.0 mmol/L Low 21.0-32.0 [facility] Comment on above: Order Comment: REDRA W. PREVIOUS SPECIMEN WAS REJECTED FOR TESTING DUE TOHEMOLYSIS. SPECIMEN WAS DISCARDED. 10/19/23835 [employer] LCrytzer. Performed By: #### L 3300.0700, L3410.2350, L3400.3800, L503.6030, L800.1280, L100.9950, L3100.3425, L803.2200, L3900.2100, L3000.0375, L503.6550, L3100.5440, L3100.5850 #### [facility] [address] [place], [address] Creatinine [Mass/Vol] 1.07 mg/dL High 0.55-1.02 [facility] Comment on above: Order Comment: REDRA W. PREVIOUS SPECIMEN WAS REJECTED FOR TESTING DUE TOHEMOLYSIS. SPECIMEN WAS DISCARDED. 10/19/23 0836 [employer] LCrytzer. Result Comment: The validity of the calculated GFR GFRAA in patients over 70 years has not been determined. Clinical correlation is essential. Performed By: #### L 3300.0700, L3410.2350, L3400.3800, L503.6030, L800.1280, L100.9950, L3100.3425, L803.2200, L3900.2100, L3000.0375, L503.6550, L3100.5440, L3100.5850 #### [facility] [address] [place], [place], [phone] ECRCL 57.46 ml/min Normal [facility] Comment on above: Order Comment: REDRA W. PREVIOUS SPECIMEN WAS REJECTED FOR TESTING DUE TOHEMOLYSIS. SPECIMEN WAS DISCARDED. 10/19/23 0836 [employer] LCrytzer. Performed By: #### L 3300.0700, L3410.2350, L3400.3800, L503.6030, L800.1280, L100.9950, L3100.3425, L803.2200, L3900.2100, L3000.0375, L503.6550, L3100.5440, L3100.5850 #### [facility] [address] [place], [place], [phone] EST GFR - AA 64 mL/min Normal >60 [facility] Comment on above: Order Comment: REDRA W. PREVIOUS SPECIMEN WAS REJECTED FOR TESTING DUE TOHEMOLYSIS. SPECIMEN WAS DISCARDED. 10/19/23 0836 [employer] LCrytzer. Result Comment: Afri can [place]gu[place]an GFR Calc Performed By: #### L 3300.0700, L3410.2350, L3400.3800, L503.6030, L800.1280, L100.9950, L3100.3425, L803.2200, L3900.2100, L3000.0375, L503.6550, L3100.5440, L3100.5850 #### [facility] [address] [place], [place], [phone] GAP 7 Normal 5-15 [facility] Comment on above: Order Comment: REDRA W. PREVIOUS SPECIMEN WAS REJECTED FOR TESTING DUE TOHEMOLYSIS. SPECIMEN WAS DISCARDED. 10/19/23 0836 [employer] LCrytzer. Performed By: #### L 3300.0700, L3410.2350, L3400.3800, L503.6030, L800.1280, L100.9950, L3100.3425, L803.2200, L3900.2100, L3000.0375, L503.6550, L3100.5440, L3100.5850 #### [facility] [address] [place], [place], [phone] GFR/1.73 sq M.predicted among non-blacks MDRD (S/P/Bld) [Vol rate/Area] 53 mL/min/{1.73_m2} Low >60 [facility] Comment on above: Order Comment: REDRA W. PREVIOUS SPECIMEN WAS REJECTED FOR TESTING DUE TOHEMOLYSIS. SPECIMEN WAS DISCARDED. 10/19/23 0836 [employer] LCrytzer. Result Comment: Non- GFR Calc Performed By: #### L 3300.0700, L3410.2350, L3400.3800, L503.6030, L800.1280, L100.9950, L3100.3425, L803.2200, L3900.2100, L3000.0375, L503.6550, L3100.5440, L3100.5850 #### [facility] [address] [place], [place], [phone] (239) Globulin (S) [Mass/Vol] 4.2 g/dL Normal 2.2-4.2 [facility] Comment on above: Order Comment: REDRA W. PREVIOUS SPECIMEN WAS REJECTED FOR TESTING DUE TOHEMOLYSIS. SPECIMEN WAS DISCARDED. 10/19/23 0836 [employer] LCrytzer. Performed By: #### L 3300.0700, L3410.2350, L3400.3800, L503.6030, L800.1280, L100.9950, L3100.3425, L803.2200, L3900.2100, L3000.0375, L503.6550, L3100.5440, L3100.5850 #### [facility] [address] [place], [address] Glucose [Mass/Vol] 178 mg/dL High 74-106 [facility] Comment on above: Order Comment: REDRA W. PREVIOUS SPECIMEN WAS REJECTED FOR TESTING DUE TOHEMOLYSIS. SPECIMEN WAS DISCARDED. 10/19/23 0836 [employer] LCrytzer. Result Comment: Fast ing Glucose result greater than or equal to 126 mg/dL suggests DIABETES MELLITUS per A.D.A. criteria. Performed By: #### L 3300.0700, L3410.2350, L3400.3800, L503.6030, L800.1280, L100.9950, L3100.3425, L803.2200, L3900.2100, L3000.0375, L503.6550, L3100.5440, L3100.5850 #### [facility] [address] [place], [address] Potassium [Moles/Vol] 3.9 mmol/L Normal 3.5-5.1 [facility] Comment on above: Order Comment: REDRA W. PREVIOUS SPECIMEN WAS REJECTED FOR TESTING DUE TOHEMOLYSIS. SPECIMEN WAS DISCARDED. 10/19/23 0836 [employer] LCrytzer. Result Comment: Slig ht Hemolysis, Result may be falsely increased. Performed By: #### L 3300.0700, L3410.2350, L3400.3800, L503.6030, L800.1280, L100.9950, L3100.3425, L803.2200, L3900.2100, L3000.0375, L503.6550, L3100.5440, L3100.5850 #### [facility] [address] [place], [place], [phone] Sodium [Moles/Vol] 132 mmol/L Low 136-145 [facility] Comment on above: Order Comment: REDRA W. PREVIOUS SPECIMEN WAS REJECTED FOR TESTING DUE TOHEMOLYSIS. SPECIMEN WAS DISCARDED. 10/19/2336 [employer] LCrytzer. Performed By: #### L 3300.0700, L3410.2350, L3400.3800, L503.6030, L800.1280, L100.9950, L3100.3425, L803.2200, L3900.2100, L3000.0375, L503.6550, L3100.5440, L3100.5850 #### [facility] [address] [place], [address] T PROT 6.5 g/dL Normal 6.4-8.2 [facility] Comment on above: Order Comment: REDRA W. PREVIOUS SPECIMEN WAS REJECTED FOR TESTING DUE TOHEMOLYSIS. SPECIMEN WAS DISCARDED. 10/19/2336 [employer] LCrytzer. Performed By: #### L 3300.0700, L3410.2350, L3400.3800, L503.6030, L800.1280, L100.9950, L3100.3425, L803.2200, L3900.2100, L3000.0375, L503.6550, L3100.5440, L3100.5850 #### [facility] [address] [place], [place], [phone] Urea nitrogen [Mass/Vol] 13 mg/dL Normal 7-18 [facility] Comment on above: Order Comment: REDRA W. PREVIOUS SPECIMEN WAS REJECTED FOR TESTING DUE TOHEMOLYSIS. SPECIMEN WAS DISCARDED. 10/19/2336 ChaGlideie LCrytzer. Performed By: #### L 3300.0700, L3410.2350, L3400.3800, L503.6030, L800.1280, L100.9950, L3100.3425, L803.2200, L3900.2100, L3000.0375, L503.6550, L3100.5440, L3100.5850 #### [facility] [address] [place], [place], [phone] ALB Normal 3.2-5.0 [facility] Comment on above: Result Comment: This specimen has been REJECTED due to Laboratory criteria: Hemolyzed. MS3 THUY has been notified of need of recollection. 10/19/2334 Pako Puenteser Performed By: #### L 3300.0700, L3410.2350, L3400.3800, L503.6030, L800.1280, L100.9950, L3100.3425, L803.2200, L3900.2100, L3000.0375, L503.6550, L3100.5440, L3100.5850 #### [facility] [address] [place], [place], [phone] ALK P Normal 45-117 [facility] Comment on above: Result Comment: This specimen has been REJECTED due to Laboratory criteria: Hemolyzed. MS3 DSMILDEFONSO has been notified of need of recollection. 10/19/2334 Pako Covington Performed By: #### L 3300.0700, L3410.2350, L3400.3800, L503.6030, L800.1280, L100.9950, L3100.3425, L803.2200, L3900.2100, L3000.0375, L503.6550, L3100.5440, L3100.5850 #### [facility] [address] [place], [place], [address] ALT Normal 13-56 [facility] Comment on above: Result Comment: This specimen has been REJECTED due to Laboratory criteria: Hemolyzed. MS3 DSMILDEFONSO has been notified of need of recollection. 10/19/2334 Pako Covington Performed By: #### L 3300.0700, L3410.2350, L3400.3800, L503.6030, L800.1280, L100.9950, L3100.3425, L803.2200, L3900.2100, L3000.0375, L503.6550, L3100.5440, L3100.5850 #### [facility] [address] [place], [place], [phone] (685) AST Normal 15-37 [facility] Comment on above: Result Comment: This specimen has been REJECTED due to Laboratory criteria: Hemolyzed. CAITIE DALEY has been notified of need of recollection. 10/19/2334 Pako L Crytzer Performed By: #### L 3300.0700, L3410.2350, L3400.3800, L503.6030, L800.1280, L100.9950, L3100.3425, L803.2200, L3900.2100, L3000.0375, L503.6550, L3100.5440, L3100.5850 #### [facility] [address] [place], [place], [phone] (126) BUN Normal 7-18 [facility] Comment on above: Result Comment: This specimen has been REJECTED due to Laboratory criteria: Hemolyzed. CAITIE DALEY has been notified of need of recollection. 10/19/2334 Pako L Crytzer Performed By: #### L 3300.0700, L3410.2350, L3400.3800, L503.6030, L800.1280, L100.9950, L3100.3425, L803.2200, L3900.2100, L3000.0375, L503.6550, L3100.5440, L3100.5850 #### [facility] [address] [place], [place], [phone] (036) BUN/CRE Normal 10-20 [facility] Comment on above: Result Comment: This specimen has been REJECTED due to Laboratory criteria: Hemolyzed. CAITIE DALEY has been notified of need of recollection. 10/19/2334 Chassie L Crytzer Performed By: #### L 3300.0700, L3410.2350, L3400.3800, L503.6030, L800.1280, L100.9950, L3100.3425, L803.2200, L3900.2100, L3000.0375, L503.6550, L3100.5440, L3100.5850 #### [facility] [address] [place], [place], [phone] (074) CA,Total Normal 8.5-10.1 [facility] Comment on above: Result Comment: This specimen has been REJECTED due to Laboratory criteria: Hemolyzed. 3 THUY has been notified of need of recollection. 10/19/23833 Pako Covington Performed By: #### L 3300.0700, L3410.2350, L3400.3800, L503.6030, L800.1280, L100.9950, L3100.3425, L803.2200, L3900.2100, L3000.0375, L503.6550, L3100.5440, L3100.5850 #### [facility] [address] [place], [address] CL Normal 98-107 [facility] Comment on above: Result Comment: This specimen has been REJECTED due to Laboratory criteria: Hemolyzed. 3 THUY has been notified of need of recollection. 10/19/2334 Pako Covington Performed By: #### L 3300.0700, L3410.2350, L3400.3800, L503.6030, L800.1280, L100.9950, L3100.3425, L803.2200, L3900.2100, L3000.0375, L503.6550, L3100.5440, L3100.5850 #### [facility] [address] [place], [place], [phone] (482) CO2 Normal 21.0-32.0 [facility] Comment on above: Result Comment: This specimen has been REJECTED due to Laboratory criteria: Hemolyzed. MS3 THUY has been notified of need of recollection. 10/19/2334 Pako L Crytzer Performed By: #### L 3300.0700, L3410.2350, L3400.3800, L503.6030, L800.1280, L100.9950, L3100.3425, L803.2200, L3900.2100, L3000.0375, L503.6550, L3100.5440, L3100.5850 #### [facility] [address] [place], [place], [phone] (560) CREAT,SERUM Normal 0.55-1.02 [facility] Comment on above: Result Comment: This specimen has been REJECTED due to Laboratory criteria: Hemolyzed. CAITIE DALEY has been notified of need of recollection. 10/19/2334 Pako L Crytzer Performed By: #### L 3300.0700, L3410.2350, L3400.3800, L503.6030, L800.1280, L100.9950, L3100.3425, L803.2200, L3900.2100, L3000.0375, L503.6550, L3100.5440, L3100.5850 #### [facility] [address] [place], [place], [id number] EST GFR Normal >60 [facility] Comment on above: Result Comment: This specimen has been REJECTED due to Laboratory criteria: Hemolyzed. 3 THUY has been notified of need of recollection. 10/19/2334 Pako L Crytzer Performed By: #### L 3300.0700, L3410.2350, L3400.3800, L503.6030, L800.1280, L100.9950, L3100.3425, L803.2200, L3900.2100, L3000.0375, L503.6550, L3100.5440, L3100.5850 #### [facility] [address] [place], [place], [address] EST GFR - AA Normal >60 [facility] Comment on above: Result Comment: This specimen has been REJECTED due to Laboratory criteria: Hemolyzed. 3 THUY has been notified of need of recollection. 10/19/23833 Pako Puenteser Performed By: #### L 3300.0700, L3410.2350, L3400.3800, L503.6030, L800.1280, L100.9950, L3100.3425, L803.2200, L3900.2100, L3000.0375, L503.6550, L3100.5440, L3100.5850 #### [facility] [address] [place], [place], [phone] GAP Normal 5-15 [facility] Comment on above: Result Comment: This specimen has been REJECTED due to Laboratory criteria: Hemolyzed. 3 THUY has been notified of need of recollection. 10/19/2334 Pako Puenteser Performed By: #### L 3300.0700, L3410.2350, L3400.3800, L503.6030, L800.1280, L100.9950, L3100.3425, L803.2200, L3900.2100, L3000.0375, L503.6550, L3100.5440, L3100.5850 #### [facility] [address] [place], [place], [id number] GLU Normal 74-106 [facility] Comment on above: Result Comment: This specimen has been REJECTED due to Laboratory criteria: Hemolyzed. MS3 THUY has been notified of need of recollection. 10/19/23833 Pako Puenteser Performed By: #### L 3300.0700, L3410.2350, L3400.3800, L503.6030, L800.1280, L100.9950, L3100.3425, L803.2200, L3900.2100, L3000.0375, L503.6550, L3100.5440, L3100.5850 #### [facility] [address] [place], [address] Potassium Normal 3.5-5.1 [facility] Comment on above: Result Comment: This specimen has been REJECTED due to Laboratory criteria: Hemolyzed. MS3 THUY has been notified of need of recollection. 10/19/2334 Chassie L Crytzer Performed By: #### L 3300.0700, L3410.2350, L3400.3800, L503.6030, L800.1280, L100.9950, L3100.3425, L803.2200, L3900.2100, L3000.0375, L503.6550, L3100.5440, L3100.5850 #### [facility] [address] [place], [address] T BILI Normal 0.20-1.00 [facility] Comment on above: Result Comment: This specimen has been REJECTED due to Laboratory criteria: Hemolyzed. MS3 DSMILDEFONSO has been notified of need of recollection. 10/19/23 0834 Chacarmenie L Crytzer Performed By: #### L 3300.0700, L3410.2350, L3400.3800, L503.6030, L800.1280, L100.9950, L3100.3425, L803.2200, L3900.2100, L3000.0375, L503.6550, L3100.5440, L3100.5850 #### [facility] [address] [place], [address] T PROT Normal 6.4-8.2 [facility] Comment on above: Result Comment: This specimen has been REJECTED due to Laboratory criteria: Hemolyzed. MS3 DSMITH has been notified of need of recollection. 10/19/23 0834 Chassie L Crytzer Performed By: #### L 3300.0700, L3410.2350, L3400.3800, L503.6030, L800.1280, L100.9950, L3100.3425, L803.2200, L3900.2100, L3000.0375, L503.6550, L3100.5440, L3100.5850 #### [facility] [address] [place], [address] Comprehensive Metabolic Profil Normal 136-145 [facility] Comment on above: Result Comment: This specimen has been REJECTED due to Laboratory criteria: Hemolyzed. CAITIE DALEY has been notified of need of recollection. 10/19/23 0834 Pako Covington Performed By: #### L 3300.0700, L3410.2350, L3400.3800, L503.6030, L800.1280, L100.9950, L3100.3425, L803.2200, L3900.2100, L3000.0375, L503.6550, L3100.5440, L3100.5850 #### [facility] [facility] [address] [place], [address] Determination of erythrocyte mean corpuscular volume (MCV)Ordered By: Tirso Friend on 10-19-2023 MCV (RBC) [Entitic vol] 94.6 fL 81-99 [facility] Discharge Instructionon 10-03 Discharge Instruction [facility] Medical Records Department [address] [place] [address] Instructions for Home/Discharge Instructions 10/19/23 1130 MR#: [id number] Acct: [id number] Name: PENNY MCKEON Rep #: [id number] : 1945 78 From: Tirso Friend MD PCP: Dr. Laura Bowden, DO Status:ADM IN Discharge Instructions Diet Discharge Diet: Low fat / Low cholesterol and Carb Control Diet Dressing / Incision Call your doctor if your incision/area has: Continuous Slow Oozing, Sudden Increased Bleeding, Increased Redness and Foul Smelling Discharge Call your doctor if you observe: Fever of 101 or Higher, Shortness of breath, Dizziness, Fainting spells, Swelling in the ankles, Chest pain and Increased palpitations (irregular heartbeat) Drain: Suction Follow Up Care Test Results: Test results from this visit will be discussed in further detail at your follow-up appointment, if applicable. Discharge Plan Admission Admit Date/Time: 10/15/23 20:11 Attending Provider: Tirso Friend Primary Care Provider: Laura Bowden Consulting Providers: Caden Roy; Enma Otoole; Dennise Batres Instructions Additional Instructions / Restrictions: Cholecystectomy Diet ??? Start light with soups and soft bland foods. You may advance diet as tolerated. Activity ??? You may drive in 3-5 days but not while taking narcotic pain medication. ??? I encourage walking. You may go up steps, one at a time. ??? Do not swim or use hot tubs for 2 weeks. ??? For comfort, you may use warm compresses or ice as needed for 15-20 minutes at a time. Lifting ??? You may lift up to 15 pounds for the 3 weeks. Dressings/Incision ??? You may shower OVER your plastic dressings in 48 hours from your surgery ??? Do NOT tub bathe for 1 week ??? Leave plastic dressings on for 2 days. ??? When plastic dressings are removed, you will find steri strips. It is okay to continue showering with them in place, pat them dry. ??? You may remove steri-strips after 1 week. We recommend getting them soaking wet for easier removal. Drain Care You are going home with a drain. You are responsible to record the drainage character and amount each time you empty the drain. Keep drain site covered with gauze and tape. Change the dressing daily. Medications ??? Anesthesia used during surgery and pain medications may cause constipation. I recommend initiating on the day of surgery a fiber supplement like, Metamucil, Citrucel, FiberCon, Benefiber, or a generic form of these medications. 1 heaping tablespoon in water daily. You may continue to utilize any bowel regimen or oral laxatives that you routinely take. ??? As long as you are not intolerant to Tylenol, acetaminophen, ibuprofen, Motrin, Advil, Aleve, or similar medications, I would recommend transitioning to these fnsy-tnq-ivrbgyj medicines as soon as possible instead of continued use of narcotic pain medication. Follow up ??? You should call [facility] soon after surgery, at [phone] option 1 to make a follow up appointment for 7 days after your surgery. Discharge Orders/Prescriptions Prescriptions: New amoxicillin-pot clavulanate 875-125 mg tablet 1 tab PO Q12H 5 Days Qty: 10 0RF hydrocodone-acetaminophen 5-325 mg tablet 1 tab PO Q6H PRN (Reason: pain) 3 Days Qty: 10 0RF Continued carvedilol 25 mg tablet 25 mg PO Q12H atorvastatin 20 mg tablet 20 mg PO DAILY niacin 1,000 mg tablet extended release 24 hr 1,000 mg PO DAILY cetirizine 10 mg tablet 10 mg PO DAILY Patient Comments: TAKE ONE TABLET BY MOUTH EVERY DAY IN THE MORNING oxybutynin chloride 10 mg tablet extended release 24hr 10 mg PO DAILY levothyroxine 50 mcg tablet 50 mcg PO DAILY montelukast 10 mg tablet 10 mg PO DAILY ergocalciferol (vitamin D2) 1,250 mcg (50,000 unit) capsule 1,250 mcg PO DAILY Patient Comments: TAKE 1 CAPSULE (39749 UNITS) BY MOUTH ONCE A WEEK escitalopram oxalate 20 mg tablet 20 mg PO DAILY cholestyramine-aspartame [Cholestyramine Light] 4 gram powder in packet 1 ea PO DAILY Patient Comments: DISSOLVE 1 PACKET IN 2 TO 6 OUNCES OF WATER OR NONCARBONATED BEVERAGE TWO TIMES A DAY BEFORE MEALS AND DRINK Rx Instructions: orally daily; fenofibrate nanocrystallized 145 mg tablet 145 mg PO DAILY Hold Instructions: Pt has been DC'd Janumet 50-1,000 mg tablet 1 tab PO DAILY Myrbetriq 25 mg tablet extended release 24 hr 25 mg PO Q24H Hold Instructions: Pt has been DC'd Patient Comments: TAKE ONE TABLET BY MOUTH EVERY DAY SWALLOWING WHOLE WITH WATER. DO NOT CRUSH CHEW AND/OR DIVIDE. Jardiance 25 mg tablet 25 mg PO DAILY aspirin [Adult Aspirin Regimen] 81 mg tablet,delayed release (DR/EC) 81 mg PO DAILY Referrals / Follow Up: Laura Bowden DO [Primary Care Provider] - Within 1 Week Caden Roy MD [Med Staff (more content not included)... Normal [facility] EBV Acute Prof IgG / IgMon 0 1-17-2024 EB Ab VCA, IgG > 600.0 High 0.0-17.9 [facility] Comment on above: Result Comment: Nega tive <18.0 Equivocal 18.0 - 21.9 Positive >21.9 Performed By: #### L 3300.0700, L3410.2350, L3400.3800, L503.6030, L800.1280, L100.9950, L3100.3425, L803.2200, L3900.2100, L3000.0375, L503.6550, L3100.5440, L3100.5850 ####[facility] [address] [place], [address] EBV Ab VCA, IgM < 36.0 Normal 0.0-35.9 [facility] Comment on above: Result Comment: Nega tive <36.0 Equivocal 36.0 - 43.9 Positive >43.9 Performed By: #### L 3300.0700, L3410.2350, L3400.3800, L503.6030, L800.1280, L100.9950, L3100.3425, L803.2200, L3900.2100, L3000.0375, L503.6550, L3100.5440, L3100.5850 ####[facility] [address] [place], [address] EBV NuAg Ab,IgG 37.6 U/mL High 0.0-17.9 [facility] Comment on above: Result Comment: Nega tive <18.0 Equivocal 18.0 - 21.9 Positive >21.9 Performed By: #### L 3300.0700, L3410.2350, L3400.3800, L503.6030, L800.1280, L100.9950, L3100.3425, L803.2200, L3900.2100, L3000.0375, L503.6550, L3100.5440, L3100.5850 ####[facility] [address] [place], [address] INTERPRETATION Comment Normal . [facility] Comment on above: Result Comment: EBV Interpretation Chart Mera: Antibody Present + Antibody Absent - Interpretation VCA-IgM VCA-IgG EBNA-IgG No previous infection/ - - - Susceptible Primary infection (new + + - or recent) Past Infection +or- + + See comment below* + - - *Results indicate infection with EBV at some time however cannot predict the timing of the infection since antibodies to EBNA usually develop after primary infection or, alternatively, approximately 5-10% of patients with EBV never develop antibodies to EBNA. Performed By: #### L 3300.0700, L3410.2350, L3400.3800, L503.6030, L800.1280, L100.9950, L3100.3425, L803.2200, L3900.2100, L3000.0375, L503.6550, L3100.5440, L3100.5850 ####[facility] [address] [place], [address] Erythrocyte distribution wid th ratioOrdered By: Tirso Friend on 10-19-2023 Erythrocyte distribution width (RBC) [Ratio] 15.9 % 11.6-14.6 [facility] Erythrocyte distribution wid th standard deviationOrdered By: Tirsoanca Friend on 10-19-2023 Erythrocyte distribution width (RBC) [Entitic vol] 54.3 fL 35.1-43.9 [facility] Hematocrit Auto (Bld) [Volum e fraction]Ordered By: Tirso Friend on 10-19-2023 Hematocrit (Bld) [Volume fraction] 33.3 % 37-47 [facility] Hepatitis Panel Acuteon 10-03 COMMENT Comment Normal . [facility] Comment on above: Result Comment: Not infected with HCV unless early or acute infection is suspected (which may be delayed in an immunocompromised individual), or other evidence exists to indicate HCV infection. Performed By: #### L 3300.0700, L3410.2350, L3400.3800, L503.6030, L800.1280, L100.9950, L3100.3425, L803.2200, L3900.2100, L3000.0375, L503.6550, L3100.5440, L3100.5850 ####[facility] [address] [place], [address] HEP B CORE,IgM Negative Normal Negative [facility] Comment on above: Performed By: #### L 3300.0700, L3410.2350, L3400.3800, L503.6030, L800.1280, L100.9950, L3100.3425, L803.2200, L3900.2100, L3000.0375, L503.6550, L3100.5440, L3100.5850 ####[facility] [address] [place], [place], [id number] HEP B SURF AG Negative Normal Negative [facility] Comment on above: Performed By: #### L 3300.0700, L3410.2350, L3400.3800, L503.6030, L800.1280, L100.9950, L3100.3425, L803.2200, L3900.2100, L3000.0375, L503.6550, L3100.5440, L3100.5850 ####[facility] [address] [place], [place], [phone] HEP C VIRUS AB Non-Reactive Normal Non Reactive [facility] Comment on above: Performed By: #### L 3300.0700, L3410.2350, L3400.3800, L503.6030, L800.1280, L100.9950, L3100.3425, L803.2200, L3900.2100, L3000.0375, L503.6550, L3100.5440, L3100.5850 ####[facility] [address] [place], [place], [id number] HEPATITIS A-IgM Negative Normal Negative [facility] Comment on above: Performed By: #### L 3300.0700, L3410.2350, L3400.3800, L503.6030, L800.1280, L100.9950, L3100.3425, L803.2200, L3900.2100, L3000.0375, L503.6550, L3100.5440, L3100.5850 ####[facility] [address] [place], [place], [id number] TAYLOR + Protein Elect, Serumon 10-19-2023 Albumin [Mass/Vol] 2.6 g/dL Low 2.9-4.4 [facility] Comment on above: Performed By: #### L 3300.0700, L3410.2350, L3400.3800, L503.6030, L800.1280, L100.9950, L3100.3425, L803.2200, L3900.2100, L3000.0375, L503.6550, L3100.5440, L3100.5850 ####[facility] [address] [place], [place], [phone] Albumin/Globulin [Mass ratio] 0.9 {ratio} Normal 0.7-1.7 [facility] Comment on above: Performed By: #### L 3300.0700, L3410.2350, L3400.3800, L503.6030, L800.1280, L100.9950, L3100.3425, L803.2200, L3900.2100, L3000.0375, L503.6550, L3100.5440, L3100.5850 ####[facility] [address] [place], [place], [id number] MHUEU-8-XRSH 0.3 g/dL Normal 0.0-0.4 [facility] Comment on above: Performed By: #### L 3300.0700, L3410.2350, L3400.3800, L503.6030, L800.1280, L100.9950, L3100.3425, L803.2200, L3900.2100, L3000.0375, L503.6550, L3100.5440, L3100.5850 ####[facility] [address] [place], [place], [phone] SQNTG-3-ZZGH 1.0 g/dL Normal 0.4-1.0 [facility] Comment on above: Performed By: #### L 3300.0700, L3410.2350, L3400.3800, L503.6030, L800.1280, L100.9950, L3100.3425, L803.2200, L3900.2100, L3000.0375, L503.6550, L3100.5440, L3100.5850 ####[facility] [address] [place], [place], [phone] BETA GLOBULIN 1.1 g/dL Normal 0.7-1.3 [facility] Comment on above: Performed By: #### L 3300.0700, L3410.2350, L3400.3800, L503.6030, L800.1280, L100.9950, L3100.3425, L803.2200, L3900.2100, L3000.0375, L503.6550, L3100.5440, L3100.5850 ####[facility] [address] [place], [place], [phone] GAMMA GLOBULIN 0.6 g/dL Normal 0.4-1.8 [facility] Comment on above: Performed By: #### L 3300.0700, L3410.2350, L3400.3800, L503.6030, L800.1280, L100.9950, L3100.3425, L803.2200, L3900.2100, L3000.0375, L503.6550, L3100.5440, L3100.5850 ####[facility] [address] [place], [place], [phone] Globulin (S) [Mass/Vol] 2.9 g/dL Normal 2.2-3.9 [facility] Comment on above: Performed By: #### L 3300.0700, L3410.2350, L3400.3800, L503.6030, L800.1280, L100.9950, L3100.3425, L803.2200, L3900.2100, L3000.0375, L503.6550, L3100.5440, L3100.5850 ####[facility] [address] [place], [address] TAYLOR RESULT,S Comment Normal . [facility] Comment on above: Result Comment: No m onoclonality detected. Performed By: #### L 3300.0700, L3410.2350, L3400.3800, L503.6030, L800.1280, L100.9950, L3100.3425, L803.2200, L3900.2100, L3000.0375, L503.6550, L3100.5440, L3100.5850 ####[facility] [address] [place], [address] IMMUNOGLOB A QN 261 mg/dL Normal 64-422 [facility] Comment on above: Performed By: #### L 3300.0700, L3410.2350, L3400.3800, L503.6030, L800.1280, L100.9950, L3100.3425, L803.2200, L3900.2100, L3000.0375, L503.6550, L3100.5440, L3100.5850 ####[facility] [address] [place], [address] IMMUNOGLOB G QN 691 mg/dL Normal 586-1602 [facility] Comment on above: Performed By: #### L 3300.0700, L3410.2350, L3400.3800, L503.6030, L800.1280, L100.9950, L3100.3425, L803.2200, L3900.2100, L3000.0375, L503.6550, L3100.5440, L3100.5850 ####[facility] [address] [place], [address] IMMUNOGLOB M QN 104 mg/dL Normal 26-217 [facility] Comment on above: Performed By: #### L 3300.0700, L3410.2350, L3400.3800, L503.6030, L800.1280, L100.9950, L3100.3425, L803.2200, L3900.2100, L3000.0375, L503.6550, L3100.5440, L3100.5850 ####[facility] [address] [place], [address] M-Giuliano Not Observed Normal Not Observed [facility] Comment on above: Performed By: #### L 3300.0700, L3410.2350, L3400.3800, L503.6030, L800.1280, L100.9950, L3100.3425, L803.2200, L3900.2100, L3000.0375, L503.6550, L3100.5440, L3100.5850 ####[facility] [address] [place], [place], [phone] NOTE: Comment Normal . [facility] Comment on above: Result Comment: Prot ein electrophoresis scan will follow via computer, mail, or investment banking manager delivery. Performed By: #### L 3300.0700, L3410.2350, L3400.3800, L503.6030, L800.1280, L100.9950, L3100.3425, L803.2200, L3900.2100, L3000.0375, L503.6550, L3100.5440, L3100.5850 ####[facility] [address] [place], [address] Protein [Mass/Vol] 5.5 g/dL Low 6.0-8.5 [facility] Comment on above: Performed By: #### L 3300.0700, L3410.2350, L3400.3800, L503.6030, L800.1280, L100.9950, L3100.3425, L803.2200, L3900.2100, L3000.0375, L503.6550, L3100.5440, L3100.5850 ####[facility] [address] [place], [address] Immature granulocytes/100 WB C Auto (Bld)Ordered By: Tirso Friend on 10-19-2023 Immature granulocytes/100 WBC (Bld) 1.300 % 0.0-0.9 [facility] Comment on above: IG% - Immature Granu locytes (promyelocytes, myelocytes and metamyelocytes) > 1% indicates that a LEFT SHIFT is Present. Laboratory - Chemistry and C hemistry - challengeOrdered By: Tirso Friend on 10-19-2023 Albumin/Globulin [Mass ratio] 0.5 {ratio} 0.9-2.4 [facility] ALP [Catalytic activity/Vol] 351 U/L 45-117 [facility] ALT [Catalytic activity/Vol] 192 U/L 13-56 [facility] CO2 [Moles/Vol] 17.0 mmol/L 21.0-32.0 [facility] Globulin (S) [Mass/Vol] 4.2 g/dL 2.2-4.2 [facility] Urea nitrogen/Creatinine [Mass ratio] 12.1 mg/mg 10-20 [facility] Laboratory - Hematology and Cell countsOrdered By: Tirso Friend on 10-19-2023 MCH (RBC) [Entitic mass] 31.5 pg 27.0-32.0 [facility] MCHC (RBC) [Mass/Vol] 33.3 g/dL 32-36 [facility] Nucleated RBC/100 WBC (Bld) [Ratio] 0 % 0-5 [facility] Platelets (Bld) [#/Vol] 191 10*3/uL 150-450 [facility] No Panel InformationOrdered By: Tirso Friend on 10-19-2023 Estimated Creatinine Clearance Calc 57.46 ml/min [facility] Estimated GFR (MDRD) Amer 64 mL/min >60 [facility] Comment on above: GFR Calc Estimated GFR (MDRD) Non-Af Amer 53 mL/min >60 [facility] Comment on above: Non- GFR Calc Platelet mean volume Christian-Ec ker (Bld) [Entitic vol]Ordered By: Tirso Friend on 10-19-2023 Platelet mean volume (Bld) [Entitic vol] 11.2 fL 6.2-12.0 [facility] RBC Auto (Bld) [#/Vol]Ordere d By: Tirso Friend on 10-19-2023 RBC (Bld) [#/Vol] 3.52 10*6/uL 4.2-5.4 [facility] Serum or plasma calcium esthela urement (mass/volume)Ordered By: Tirso Friend on 10-19-2023 Calcium [Mass/Vol] 9.3 mg/dL 8.5-10.1 [facility] Serum or plasma creatinine m easurement (mass/volume)Ordered By: Tirso Friend on 10-19-2023 Creatinine [Mass/Vol] 1.07 mg/dL 0.55-1.02 [facility] Comment on above: The validity of the calculated GFR & GFRAA in patients over 70 years has not been determined. Clinical correlation is essential. Serum or plasma urea nitroge n measurement (mass/volume)Ordered By: Tirso Friend on 10-19-2023 Urea nitrogen [Mass/Vol] 13 mg/dL 7-18 [facility] Thin prep Papanicolaou smear with manual screeningOrdered By: Tirso Friend on 10-19-2023 Thin prep Papanicolaou smear with manual screening 262 mg/dL 74-106 [facility] Comment on above: MANAGEMENT OF PATIEN T CARE PER NURSING PROTOCOL Thin prep Papanicolaou smear with manual screening 2.3 g/dL 3.2-5.0 [facility] Thin prep Papanicolaou smear with manual screening 51 U/L 15-37 [facility] Comment on above: Slight Hemolysis, Re sult may be falsely increased. Thin prep Papanicolaou smear with manual screening 7 5-15 [facility] Transferrinon 10-19-2023 Transferrin [Mass/Vol] 249 mg/dL Normal 192-364 [facility] Comment on above: Result Comment: Perf ormed at: CB - [facility] [id number] [place], [place] [id number] Powerbuilder: Brijesh Posadas PhD, Phone: [phone] Performed By: #### L 3300.0700, L3410.2350, L3400.3800, L503.6030, L800.1280, L100.9950, L3100.3425, L803.2200, L3900.2100, L3000.0375, L503.6550, L3100.5440, L3100.5850 ####[facility] [address] [place], [place], [id number] Albumin Elph [Mass/Vol]Order ed By: Patric Polanco on 10-18-2023 Albumin [Mass/Vol] 2.6 g/dL 2.9-4.4 [facility] Alpha fetoprotein measuremen t as tumor markerOrdered By: Patric Polanco on 10-18-2023 AFP.tumor marker [Mass/Vol] ng/mL 0.0-9.2 [facility] Comment on above: [facility] El ectrochemiluminescence Immunoassay(ECLIA)Values obtained with different assay methods or kits cannotbe used interchangeably. Results cannot be interpreted asabsolute evidence of the presence or absence of malignantdisease.This test is not interpretable in females. Bedside Glucoseon 10-18-2023 FINGERSTICK GLU 288 mg/dL High 74-106 [facility] Comment on above: Result Comment: JRODAN AMAYA OF PATIENT CARE PER NURSING PROTOCOL Performed By: #### L 3300.0700, L3410.2350, L3400.3800, L503.6030, L800.1280, L100.9950, L3100.3425, L803.2200, L3900.2100, L3000.0375, L503.6550, L3100.5440, L3100.5850 #### [facility] [address] [place], [address] FINGERSTICK GLU 272 mg/dL High 74-106 [facility] Comment on above: Result Comment: JORDAN GEMENT OF PATIENT CARE PER NURSING PROTOCOL Performed By: #### L 501.080 ####[facility] [address] [place], [address] FINGERSTICK GLU 117 mg/dL High 74-106 [facility] Comment on above: Result Comment: JORDAN GEMENT OF PATIENT CARE PER NURSING PROTOCOL Performed By: #### L 3300.0700, L3410.2350, L3400.3800, L503.6030, L800.1280, L100.9950, L3100.3425, L803.2200, L3900.2100, L3000.0375, L503.6550, L3100.5440, L3100.5850 #### [facility] [address] [place], [address] FINGERSTICK GLU 120 mg/dL High 74-106 [facility] Comment on above: Result Comment: JORDAN GEMENT OF PATIENT CARE PER NURSING PROTOCOL Performed By: #### L 3300.0700, L3410.2350, L3400.3800, L503.6030, L800.1280, L100.9950, L3100.3425, L803.2200, L3900.2100, L3000.0375, L503.6550, L3100.5440, L3100.5850 #### [facility] [address] [place], [address] CBC W/Diff, Automatedon 10-03 Absolute Lymph 1.33 X10 3/uL Normal 0.83-4.51 [facility] Comment on above: Performed By: #### L 3300.0700, L3410.2350, L3400.3800, L503.6030, L800.1280, L100.9950, L3100.3425, L803.2200, L3900.2100, L3000.0375, L503.6550, L3100.5440, L3100.5850 #### [facility] [address] [place], [address] Absolute Neut 4.8 X10 3/uL Normal 2.0-7.7 [facility] Comment on above: Performed By: #### L 3300.0700, L3410.2350, L3400.3800, L503.6030, L800.1280, L100.9950, L3100.3425, L803.2200, L3900.2100, L3000.0375, L503.6550, L3100.5440, L3100.5850 #### [facility] [address] [place], [address] [phone] Basophils/100 WBC (Bld) 1.0 % Normal 0-1 [facility] Comment on above: Performed By: #### L 3300.0700, L3410.2350, L3400.3800, L503.6030, L800.1280, L100.9950, L3100.3425, L803.2200, L3900.2100, L3000.0375, L503.6550, L3100.5440, L3100.5850 #### [facility] [address] [place], [address] Eosinophils/100 WBC (Bld) 9.6 % High 0-5 [facility] Comment on above: Performed By: #### L 3300.0700, L3410.2350, L3400.3800, L503.6030, L800.1280, L100.9950, L3100.3425, L803.2200, L3900.2100, L3000.0375, L503.6550, L3100.5440, L3100.5850 #### [facility] [address] [place], [address] [phone] Erythrocyte distribution width (RBC) [Ratio] 15.2 % High 11.6-14.6 [facility] Comment on above: Performed By: #### L 3300.0700, L3410.2350, L3400.3800, L503.6030, L800.1280, L100.9950, L3100.3425, L803.2200, L3900.2100, L3000.0375, L503.6550, L3100.5440, L3100.5850 #### [facility] [address] [facility] [place], [place], [id number] Hematocrit (Bld) [Volume fraction] 34.1 % Low 37-47 [facility] Comment on above: Performed By: #### L 3300.0700, L3410.2350, L3400.3800, L503.6030, L800.1280, L100.9950, L3100.3425, L803.2200, L3900.2100, L3000.0375, L503.6550, L3100.5440, L3100.5850 #### [facility] [address] [place], [place], [phone] Hemoglobin (Bld) [Mass/Vol] 11.3 g/dL Low 12.0-15.0 [facility] Comment on above: Performed By: #### L 3300.0700, L3410.2350, L3400.3800, L503.6030, L800.1280, L100.9950, L3100.3425, L803.2200, L3900.2100, L3000.0375, L503.6550, L3100.5440, L3100.5850 #### [facility] [address] [facility] [place], [place], [id number] IG% 3.200 High 0.0-0.9 [facility] Comment on above: Result Comment: IG% - Immature Granulocytes (promyelocytes, myelocytes and metamyelocytes) > 1% indicates that a LEFT SHIFT is Present. Performed By: #### L 3300.0700, L3410.2350, L3400.3800, L503.6030, L800.1280, L100.9950, L3100.3425, L803.2200, L3900.2100, L3000.0375, L503.6550, L3100.5440, L3100.5850 #### [facility] [address] [place], [address] Lymphocytes/100 WBC (Bld) 17.0 % Low 19-41 [facility] Comment on above: Performed By: #### L 3300.0700, L3410.2350, L3400.3800, L503.6030, L800.1280, L100.9950, L3100.3425, L803.2200, L3900.2100, L3000.0375, L503.6550, L3100.5440, L3100.5850 #### [facility] [address] [place], [address] MCH (RBC) [Entitic mass] 30.9 pg Normal 27.0-32.0 [facility] Comment on above: Performed By: #### L 3300.0700, L3410.2350, L3400.3800, L503.6030, L800.1280, L100.9950, L3100.3425, L803.2200, L3900.2100, L3000.0375, L503.6550, L3100.5440, L3100.5850 #### [facility] [address] [place], [address] MCHC (RBC) [Mass/Vol] 33.1 g/dL Normal 32-36 [facility] Comment on above: Performed By: #### L 3300.0700, L3410.2350, L3400.3800, L503.6030, L800.1280, L100.9950, L3100.3425, L803.2200, L3900.2100, L3000.0375, L503.6550, L3100.5440, L3100.5850 #### [facility] [address] [place], [address] MCV (RBC) [Entitic vol] 93.2 fL Normal 81-99 [facility] Comment on above: Performed By: #### L 3300.0700, L3410.2350, L3400.3800, L503.6030, L800.1280, L100.9950, L3100.3425, L803.2200, L3900.2100, L3000.0375, L503.6550, L3100.5440, L3100.5850 #### [facility] [address] [place], [address] Monocytes/100 WBC (Bld) 8.3 % Normal 0-10 [facility] Comment on above: Performed By: #### L 3300.0700, L3410.2350, L3400.3800, L503.6030, L800.1280, L100.9950, L3100.3425, L803.2200, L3900.2100, L3000.0375, L503.6550, L3100.5440, L3100.5850 #### [facility] [address] [place], [address] Neutrophils/100 WBC (Bld) 60.9 % Normal 47-70 [facility] Comment on above: Performed By: #### L 3300.0700, L3410.2350, L3400.3800, L503.6030, L800.1280, L100.9950, L3100.3425, L803.2200, L3900.2100, L3000.0375, L503.6550, L3100.5440, L3100.5850 #### [facility] [address] [place], [address] Nucleated RBC (Bld) [#/Vol] 0 10*3/uL Normal 0-5 [facility] Comment on above: Performed By: #### L 3300.0700, L3410.2350, L3400.3800, L503.6030, L800.1280, L100.9950, L3100.3425, L803.2200, L3900.2100, L3000.0375, L503.6550, L3100.5440, L3100.5850 #### [facility] [address] [place], [address] Platelet mean volume (Bld) [Entitic vol] 9.7 fL Normal 6.2-12.0 [facility] Comment on above: Performed By: #### L 3300.0700, L3410.2350, L3400.3800, L503.6030, L800.1280, L100.9950, L3100.3425, L803.2200, L3900.2100, L3000.0375, L503.6550, L3100.5440, L3100.5850 #### [facility] [address] [place], [address] Platelets (Bld) [#/Vol] 157 10*3/uL Normal 150-450 [facility] Comment on above: Performed By: #### L 3300.0700, L3410.2350, L3400.3800, L503.6030, L800.1280, L100.9950, L3100.3425, L803.2200, L3900.2100, L3000.0375, L503.6550, L3100.5440, L3100.5850 #### [facility] [address] [place], [address] RBC (Bld) [#/Vol] 3.66 10*6/uL Low 4.2-5.4 [facility] Comment on above: Performed By: #### L 3300.0700, L3410.2350, L3400.3800, L503.6030, L800.1280, L100.9950, L3100.3425, L803.2200, L3900.2100, L3000.0375, L503.6550, L3100.5440, L3100.5850 #### [facility] [address] [place], [place], [id number] RDW SD 52.0 fl High 35.1-43.9 [facility] Comment on above: Performed By: #### L 3300.0700, L3410.2350, L3400.3800, L503.6030, L800.1280, L100.9950, L3100.3425, L803.2200, L3900.2100, L3000.0375, L503.6550, L3100.5440, L3100.5850 #### [facility] [address] [place], [place], [id number] WBC (Bld) [#/Vol] 7.8 10*3/uL Normal 4.4-11.0 [facility] Comment on above: Performed By: #### L 3300.0700, L3410.2350, L3400.3800, L503.6030, L800.1280, L100.9950, L3100.3425, L803.2200, L3900.2100, L3000.0375, L503.6550, L3100.5440, L3100.5850 #### [facility] [address] [place], [address] Comprehensive Metabolic Prof [facility] 10-18-2023 Albumin [Mass/Vol] 2.4 g/dL Low 3.2-5.0 [facility] Comment on above: Performed By: #### L 3300.0700, L3410.2350, L3400.3800, L503.6030, L800.1280, L100.9950, L3100.3425, L803.2200, L3900.2100, L3000.0375, L503.6550, L3100.5440, L3100.5850 #### [facility] [address] [place], [place], [id number] Albumin/Globulin [Mass ratio] 0.6 {ratio} Low 0.9-2.4 [facility] Comment on above: Performed By: #### L 3300.0700, L3410.2350, L3400.3800, L503.6030, L800.1280, L100.9950, L3100.3425, L803.2200, L3900.2100, L3000.0375, L503.6550, L3100.5440, L3100.5850 #### [facility] [address] [place], [address] ALK P 408 U/L High 45-117 [facility] Comment on above: Performed By: #### L 3300.0700, L3410.2350, L3400.3800, L503.6030, L800.1280, L100.9950, L3100.3425, L803.2200, L3900.2100, L3000.0375, L503.6550, L3100.5440, L3100.5850 #### [facility] [address] [facility] [place], [address] ALT [Catalytic activity/Vol] 267 U/L High 13-56 [facility] Comment on above: Performed By: #### L 3300.0700, L3410.2350, L3400.3800, L503.6030, L800.1280, L100.9950, L3100.3425, L803.2200, L3900.2100, L3000.0375, L503.6550, L3100.5440, L3100.5850 #### [facility] [address] [place], [address] AST [Catalytic activity/Vol] 156 U/L High 15-37 [facility] Comment on above: Performed By: #### L 3300.0700, L3410.2350, L3400.3800, L503.6030, L800.1280, L100.9950, L3100.3425, L803.2200, L3900.2100, L3000.0375, L503.6550, L3100.5440, L3100.5850 #### [facility] [address] [place], [address] Bilirubin [Mass/Vol] 9.30 mg/dL High 0.20-1.00 [facility] Comment on above: Result Comment: For patients on eltrombopag therapy, use of Dimension [place] TBIL is not recommended. Performed By: #### L 3300.0700, L3410.2350, L3400.3800, L503.6030, L800.1280, L100.9950, L3100.3425, L803.2200, L3900.2100, L3000.0375, L503.6550, L3100.5440, L3100.5850 #### [facility] [address] [place], [place], [phone] (487) BUN/CRE 15.7 RATIO Normal 10-20 [facility] Comment on above: Performed By: #### L 3300.0700, L3410.2350, L3400.3800, L503.6030, L800.1280, L100.9950, L3100.3425, L803.2200, L3900.2100, L3000.0375, L503.6550, L3100.5440, L3100.5850 #### [facility] [address] [place], [place], [phone] (909) CA,Total 9.0 mg/dL Normal 8.5-10.1 [facility] Comment on above: Performed By: #### L 3300.0700, L3410.2350, L3400.3800, L503.6030, L800.1280, L100.9950, L3100.3425, L803.2200, L3900.2100, L3000.0375, L503.6550, L3100.5440, L3100.5850 #### [facility] [address] [place], [address] Chloride [Moles/Vol] 108 mmol/L High 98-107 [facility] Comment on above: Performed By: #### L 3300.0700, L3410.2350, L3400.3800, L503.6030, L800.1280, L100.9950, L3100.3425, L803.2200, L3900.2100, L3000.0375, L503.6550, L3100.5440, L3100.5850 #### [facility] [address] [place], [address] CO2 [Moles/Vol] 20.0 mmol/L Low 21.0-32.0 [facility] Comment on above: Performed By: #### L 3300.0700, L3410.2350, L3400.3800, L503.6030, L800.1280, L100.9950, L3100.3425, L803.2200, L3900.2100, L3000.0375, L503.6550, L3100.5440, L3100.5850 #### [facility] [address] [place], [place], [phone] (818) Creatinine [Mass/Vol] 0.89 mg/dL Normal 0.55-1.02 [facility] Comment on above: Result Comment: The validity of the calculated GFR GFRAA in patients over 70 years has not been determined. Clinical correlation is essential. Performed By: #### L 3300.0700, L3410.2350, L3400.3800, L503.6030, L800.1280, L100.9950, L3100.3425, L803.2200, L3900.2100, L3000.0375, L503.6550, L3100.5440, L3100.5850 #### [facility] [address] [place], [address] ECRCL 69.09 ml/min Normal [facility] Comment on above: Performed By: #### L 3300.0700, L3410.2350, L3400.3800, L503.6030, L800.1280, L100.9950, L3100.3425, L803.2200, L3900.2100, L3000.0375, L503.6550, L3100.5440, L3100.5850 #### [facility] [address] [place], [place], [id number] EST GFR - AA 79 mL/min Normal >60 [facility] Comment on above: Result Comment: Afri can Anguillan GFR Calc Performed By: #### L 3300.0700, L3410.2350, L3400.3800, L503.6030, L800.1280, L100.9950, L3100.3425, L803.2200, L3900.2100, L3000.0375, L503.6550, L3100.5440, L3100.5850 #### [facility] [address] [place], [place], [id number] GAP 8 Normal 5-15 [facility] Comment on above: Performed By: #### L 3300.0700, L3410.2350, L3400.3800, L503.6030, L800.1280, L100.9950, L3100.3425, L803.2200, L3900.2100, L3000.0375, L503.6550, L3100.5440, L3100.5850 #### [facility] [address] [place], [place], [id number] GFR/1.73 sq M.predicted among non-blacks MDRD (S/P/Bld) [Vol rate/Area] 65 mL/min/{1.73_m2} Normal >60 [facility] Comment on above: Result Comment: Non- GFR Calc Performed By: #### L 3300.0700, L3410.2350, L3400.3800, L503.6030, L800.1280, L100.9950, L3100.3425, L803.2200, L3900.2100, L3000.0375, L503.6550, L3100.5440, L3100.5850 #### [facility] [address] [place], [address] Globulin (S) [Mass/Vol] 3.9 g/dL Normal 2.2-4.2 [facility] Comment on above: Performed By: #### L 3300.0700, L3410.2350, L3400.3800, L503.6030, L800.1280, L100.9950, L3100.3425, L803.2200, L3900.2100, L3000.0375, L503.6550, L3100.5440, L3100.5850 #### [facility] [address] [place], [address] Glucose [Mass/Vol] 119 mg/dL High 74-106 [facility] Comment on above: Result Comment: Fast ing Glucose result from 100 to 125 mg/dL suggests IMPAIRED HOMEOSTASIS per A.D.A. criteria. Performed By: #### L 3300.0700, L3410.2350, L3400.3800, L503.6030, L800.1280, L100.9950, L3100.3425, L803.2200, L3900.2100, L3000.0375, L503.6550, L3100.5440, L3100.5850 #### [facility] [address] [place], [address] Potassium [Moles/Vol] 3.5 mmol/L Normal 3.5-5.1 [facility] Comment on above: Performed By: #### L 3300.0700, L3410.2350, L3400.3800, L503.6030, L800.1280, L100.9950, L3100.3425, L803.2200, L3900.2100, L3000.0375, L503.6550, L3100.5440, L3100.5850 #### [facility] [address] [facility] [place], [address] Sodium [Moles/Vol] 136 mmol/L Normal 136-145 [facility] Comment on above: Performed By: #### L 3300.0700, L3410.2350, L3400.3800, L503.6030, L800.1280, L100.9950, L3100.3425, L803.2200, L3900.2100, L3000.0375, L503.6550, L3100.5440, L3100.5850 #### [facility] [address] [place], [address] T PROT 6.3 g/dL Low 6.4-8.2 [facility] Comment on above: Performed By: #### L 3300.0700, L3410.2350, L3400.3800, L503.6030, L800.1280, L100.9950, L3100.3425, L803.2200, L3900.2100, L3000.0375, L503.6550, L3100.5440, L3100.5850 #### [facility] [address] [facility] [place], [address] Urea nitrogen [Mass/Vol] 14 mg/dL Normal 7-18 [facility] Comment on above: Performed By: #### L 3300.0700, L3410.2350, L3400.3800, L503.6030, L800.1280, L100.9950, L3100.3425, L803.2200, L3900.2100, L3000.0375, L503.6550, L3100.5440, L3100.5850 #### [facility] [address] [place], [address] Rebecca-Peters virus (EBV) vir al capsid antigen (VCA) IgG antibody assayOrdered By: Patric Polanco on 10-18-2023 EBV capsid IgG IA Ql (S donor) > 600.0 U/mL 0.0-17.9 [facility] Comment on above: Negative <18.0 Equiv ocal 18.0 - 21.9 Positive >21.9 Immunoglobulin M measurement Ordered By: Patric Polanco on 10-18-2023 IgM (U) [Mass/Vol] 104 mg/dL 26-217 [facility] Interpretation of serum or p lasma protein pattern by immunofixation (narrative resultOrdered By: Patric Polanco on 10-18-2023 Protein Fractions Immunofixation Yusuf [Interp] Not Observed g/dL Not Observed [facility] - Chemistry and C hemistry - challengeOrdered By: Patric Polanco on 10-18-2023 Transferrin [Mass/Vol] 249 mg/dL 192-364 [facility] Comment on above: Performed at: [address] [id number] Director: Brijesh Posadas PhD, Phone: [phone] MR/PN.Andrew 10-18-2023 MR/PN.TATIANA [facility] Medical Records Department [address] [place] [id number] Progress Note - 10/18/23 0700 MR#: [id number] Acct: [id number] Name: PENNY MCKEON Rep #: [id number] : 1945 78 From: Patric Polanco DO PCP: Dr. Laura Bowden, DO Status:ADM IN Location: MS3 NI553-3 Subjective Subjective Patient is scheduled to go down for laparoscopic cholecystectomy today. She is not have any abdominal pain. She denied any nausea. She slept well overnight. Afebrile overnight. Objective Data Objective Data Vital Signs: Vital Signs Temp Pulse Resp BP Pulse Ox O2 Del Method O2 Flow Rate 98.4 F 73 18 155/93 H 94 Room Air 7 10/18/23 14:56 10/18/23 14:56 10/18/23 15:00 10/18/23 14:56 10/18/23 14:56 10/18/23 15:00 10/18/23 14:56 Oxygen Flow Rate (L/min) 7 Oxygen Delivery Method Room Air Weight: 267 lb 10.259 oz Body Mass Index (BMI) 45.9 Intake Output: Intake and Output for Last 24 Hours 10/16/23 10/17/23 10/18/23 23:59 23:59 23:59 Intake Total 2420 / 2420 3672.08 / 3672.08 1100 / 1100 Output Total Balance 2420 / 2420 3672.08 / 3672.08 1090 / 1090 Lab / Micro Data 10/18/23 06:00 10/18/23 06:00 Labs: Laboratory Results - last 24 hr 10/17/23 16:27: POC Glucose 104 10/17/23 22:47: POC Glucose 120 H 10/18/23 06:00: WBC 7.8, RBC 3.66 L, Hgb 11.3 L, Hct 34.1 L, MCV 93.2, MCH 30.9, MCHC 33.1, RDW Std Deviation 52.0 H, RDW Coeff of Jeff 15.2 H, Plt Count 157, MPV 9.7, Immature Gran % (Auto) 3.200 H, Neut % (Auto) 60.9, Lymph % (Auto) 17.0 L, [place] % (Auto) 8.3, Eos % (Auto) 9.6 H, Baso % (Auto) 1.0, Absolute Neuts (auto) 4.8, Absolute Lymphs (auto) 1.33, Nucleated RBC % 0, Sodium 136, Potassium 3.5, Chloride 108 H, Carbon Dioxide 20.0 L, Anion Gap 8, BUN 14, Creatinine 0.89, Estim Creat Clear Calc 69.09, Est GFR (MDRD) Af Amer 79, Est GFR (MDRD) Non-Af 65, BUN/Creatinine Ratio 15.7, Glucose 119 H, Calcium 9.0, Total Bilirubin 9.30 H, AST 156 H, ALT 267 H, Alkaline Phosphatase 408 H, Total Protein 6.3 L, Albumin 2.4 L, Globulin 3.9, Albumin/Globulin Ratio 0.6 L 10/18/23 06:09: POC Glucose 117 H Micro: Microbiology 10/15/23 19:34 Urine, Random Urine Culture - Final Klebsiella aerogenes Rhythm Strip Rhythm Strip: Sinus Rhythm Rate: 80 Ectopy: None Physical Exam Narrative General: Alert, Oriented x3, Cooperative, No apparent distress HEENT: Atraumatic, PERRLA, EOMI, Normocephalic, scleral icterus Oral: Moist Mucosa Neck: Supple, No JVD Lungs: Diminished, Normal air movement, No rhonchi, No wheeze, No rales Cardiovascular: Regular rate, Regular Rhythm, Normal S1, Normal S2, No murmurs Abdomen: Soft, RUQ tender, Non-Distended, No Hepato-splenomegaly Extremities: No edema, Capillary Refill Less than 3 Seconds Skin: No rashes, No breakdown, jaundice Musculoskeletal: No Tenderness to Palpation of Joints or Extremities Neurological: No focal deficit, Motor Exam 5/5 strength throughout, Sensory exam intact to light touch and pain Psych/Mental Status: Normal Affect, Appropriate Assessment Plan Assessment/Plan (1) Acute calculous cholecystitis: PLAN: Plan Patient is a 78-year-old lady admitted with abdominal pain gallbladder ultrasound obtained did show Solitary gallstone with contracted gallbladder and thickening of the wall. Positive Canela sign. Acute cholecystitis could not be excluded patient admitted to regular nursing floor with consultation placed to general surgery as well as GI 1. Right upper quadrant abdominal pain with cholelithiasis with acute cholecystitis ??? She does have findings of fatty liver disease but that does not explain her right upper quadrant pain. I do recommend liver biopsy which she will get done tomorrow after her cholecystectomy 2. Nonalcoholic fatty liver disease ??? She will get a liver biopsy so we can see if there is any severe steatosis. She is on medical therapy for diabetes which has been known to improve her liver enzymes and the degree of steatosis 3. Jaundice -Differential diagnosis for cholestatic hepatitis is viral hepatitis, nonhepatitis viral infection (example CMV, EBV, autoimmune hepatitis, drug-induced hepatitis ), alpha-1 antitrypsin disease, hemochromatosis, amyloidosis, sarcoidosis. Blood work is pending for autoimmune and viral workup. And biopsies is pending for further workup. 10/18/23-patient will undergo laparoscopic cholecystectomy with liver biopsy today. Her LFTs are trending down in the right direction. This is more consistent with possible biliary obstructive disease, medication side effect or autoimmune disease. Biochemical workup for autoimmune disease was sent and we will wait for liver biopsy. 10/18/23 4619 Cosigner Signature (if applicable): CC: Signed Normal [facility] No Panel InformationOrdered By: Patric Friend on 10-18-2023 Addendum Document Comment . [facility] Comment on above: Protein electrophore sis scan will follow via computer,mail, or investment banking manager delivery. Anti-Gliadin IgA Antibody 5 units 0-19 [facility] Comment on above: Negative 0 - 19 Weak Positive 20 - 30 Moderate to Strong Positive >30 Anti-Gliadin IgG Antibody 2 units 0-19 [facility] Comment on above: Negative 0 - 19 Weak Positive 20 - 30 Moderate to Strong Positive >30 Centromere B Antibody <0.2 AI 0.0-0.9 [facility] Endomysial IgA Antibody Negative Negative [facility] Comment on above: Note: Specimen is ic teric. Hepatitis A IgM Antibody Negative Negative [facility] Hepatitis B Core IgM Antibody Negative Negative [facility] Hepatitis C Antibody (EIA) Non-Reactive Non Reactive [facility] Hepatitis C Antibody Comment Comment . [facility] Comment on above: Not infected with HC V unless early or acute infection issuspected (which may be delayed in an immunocompromisedindividual), or other evidence exists to indicate HCVinfection. JANETTE-1 Antibody <0.2 AI 0.0-0.9 [facility] BURNING PLANT OPERATOR Antibody <0.2 AI 0.0-0.9 [facility] Tissue Transglutaminase IgG Ab <2 U/mL 0-5 [facility] Comment on above: Negative 0 - 5 Weak Positive 6 - 9 Positive >9 Operative Reporton Operative Report [facility] Medical Records Department [address] [place] [address] Operative Report 10/18/23 1307 MR#: [id number] Acct: [id number] Name: PENNY MCKEON Rep #: [id number] : 1945 78 From: Caden Roy MD PCP: Dr. Laura Bowden, DO Status:DIS IN [place] [facility] [id number] Report of Operation Date of Procedure: 10/18/23 Pre-Operative Diagnosis: Acute cholecystitis with hyperbilirubinemia Post-Operative Diagnosis: Acute on chronic cholecystitis with hyperbilirubinemia Surgery/Procedure Performed:: Laparoscopic subtotal cholecystectomy with liver biopsy Description of Surgical Findings:: ??? Hepatomegaly with steatohepatitis ??? Nonvisible gallbladder on peritoneal entry ??? Thick-walled gallbladder with large gallstone impacted in the posterior wall of the gallbladder as well as the infundibular region of the gallbladder Surgeon: Caden Roy forestry tree pruner: Sanford Stoner forestry tree pruner: Qing Bernstein Type of Anesthesia: General/Supplemental Anesthesiologist: Rene Dasilva Specimen's removed: Gallstone fragments Drains: 15Fr round loki drain Estimated Blood Loss (mL): 100 Description of Procedure: After proper identification in the preoperative holding area the patient was brought to the operating room where she was positioned supine on the operating room table. Preoperatively SCDs were placed and antibiotics were administered. General anesthesia was then induced. Patient's abdomen was prepped and draped in usual sterile fashion. A formal timeout was conducted to confirm both patient and the procedure. Procedure was begun with a supraumbilical incision which was extended deeply down to the level of the fascia. The fascia was elevated and incised, as well as the peritoneum. A finger sweep was performed to ensure there were no underlying adhesions and a 12 mm balloon trocar was inserted. Pneumoperitoneum was established at 15 mmHg. 3 additional trocars were placed in the epigastrium (12 mm) and in the right upper quadrant (2 x 5 mm). (Later in the procedure a third 5 mm trocar was placed through the right upper quadrant). Inspection of the peritoneum revealed no inadvertent injury to the viscera below. The gallbladder was not immediately visible beneath a very large liver with clear evidence of fatty infiltration. I attempted to elevate the liver and found it to be very weighty and stiff. Even with this elevation I was unable to visualize the gallbladder and began to carefully try to tease away some adherent omentum from the underside of the liver where I presume the gallbladder resided. I also used selective electrocautery once I could confirm that I was well away from the hepatic flexure of the colon to try to minimize the bleeding risk. Ultimately the fundic portion of the gallbladder was visualized with evidence of severe, chronic inflammation. Despite trying to expose the structure further the omentum remained densely adherent to the body of the gallbladder. Upon noting these difficulties I requested the assistance of my partner Dr. Bernstein to the operating room. Jointly, we were able to elevate the liver and the gallbladder modestly and decided to proceed with a subtotal cholecystectomy and stone extraction. The anterior wall of the gallbladder was incised using the harmonic scalpel and the stone was extracted in piecemeal fashion. There was bleeding from presumable transection of the cystic artery and this was addressed with direct application of the argon coagulation device, hemoblast, fibrillar hemostatic agent, and direct pressure. With close inspection of the lumen of the gallbladder we did not identify any further evidence of stones and irrigated the compartment to try to flush any stone fragments out of its confines. The back wall of the gallbladder was subjected to argon beam coagulation effect to try to obliterate the compartment. Then, very carefully, the stone fragments that have been extracted were placed into an Endo Catch bag and were delivered free of the peritoneum. Morison's pouch was irrigated and the effluent was suctioned free of the peritoneum. Recognizing this was the extent of what we could expect to do safely and in a minimally invasive fashion we elected to place a 15 [place] round Loki drain adjacent to the gallbladder fossa through the patient's most lateral right upper quadrant port and positioned it laparoscopically. It was tied in at the abdominal wall using a 3-0 nylon suture. Hemostasis was again confirmed in the gallbladder fossa. Given the patient's thick abdominal wall I elected to close the fascial openings of the 12 mm port sites with #1 PDS using a Raj Alvarenga suture passer under laparoscopic visualization with [id number] technique. Satisfied with this suture placement, pneumoperitoneum was evacuated and the fascial sutures were tied. A total of 30 mL of anesthetic wa (more content not included)... Normal [facility] SS-B IgG antibody assayOrder ed By: Patric Polanco on 10-18-2023 Sjogrens syndrome-B extractable nuclear IgG Qn (S) < 0.2 AI 0.0-0.9 [facility] Serum DNA double strand anti body assay (units/volume)Ordered By: Patric Polanco on 10-18-2023 DNA double strand Ab Qn (S) [IU]/mL 0-9 [facility] Comment on above: Negative <5 Equivoca l 5 - 9 Positive >9 Serum Rebecca Peters virus cap marge IgM antibody assay (units/volume)Ordered By: Patric Polanco on 10-18-2023 EBV capsid IgM Qn (S) [arb'U]/mL 0.0-35.9 [facility] Comment on above: Negative <36.0 Equiv ocal 36.0 - 43.9 Positive >43.9 Serum Rebecca Peters virus nuc lear IgG antibody assay (units/volume)Ordered By: Patric Polanco on 10-18-2023 EBV nuclear IgG Qn (S) 37.6 U/mL 0.0-17.9 [facility] Comment on above: Negative <18.0 Equiv ocal 18.0 - 21.9 Positive >21.9 Serum Scl-70 antibody assay (units/volume)Ordered By: Patric Polanco on 10-18-2023 SCL-70 extractable nuclear Ab Qn (S) <0.2 AI 0.0-0.9 [facility] Serum [id number]-7-iktgvvqkfoh me asurementOrdered By: Patric Polanco on 10-18-2023 Alpha 1 antitrypsin [Mass/Vol] 206 mg/dL 101-187 [facility] Comment on above: Performed at: [place] [id number] Director: Brijesh Posadas PhD, Phone: [phone] Serum jvxcd-1-pdtdudmc measu rement by electrophoresisOrdered By: Patric Polanco on 10-18-2023 Alpha 1 globulin Elph [Mass/Vol] 0.3 g/dL 0.0-0.4 [facility] Alpha 1 globulin Elph [Mass/Vol] 1.0 g/dL 0.4-1.0 [facility] Serum mitochondria antibody detectionOrdered By: Patric Polanco on 10-18-2023 Mitochondria Ab Ql (S) <20.0 Units 0.0-20.0 [facility] Comment on above: Negative 0.0 - 20.0 Equivocal 20.1 - 24.9 Positive >24.9Mitochondrial (M2) Antibodies are found in 90-96% ofpatients with primary biliary cirrhosis. Serum or plasma IgA measurem ent (mass/volume)Ordered By: Patric Polanco on 10-18-2023 IgA [Mass/Vol] 261 mg/dL 64-422 [facility] Serum or plasma IgG measurem ent (mass/volume)Ordered By: Patric Polanco on 10-18-2023 IgG [Mass/Vol] 691 mg/dL 586-1602 [facility] Serum or plasma actin IgG an tibody assay (units/volume)Ordered By: Patric Polanco on 10-18-2023 Actin IgG Qn 2 Units 0-19 [facility] Comment on above: Negative 0 - 19 Weak positive 20 - 30 Moderate to strong positive >30 Actin Antibodies are found in 52-85% of patients with autoimmune hepatitis or chronic active hepatitis and in 22% of patients with primary biliary cirrhosis. Serum or plasma beta globuli n measurement by electrophoresis (mass/volume)Ordered By: Patric Polanco on 10-18-2023 Beta globulin Elph [Mass/Vol] 1.1 g/dL 0.7-1.3 [facility] Serum or plasma gamma globul in measurement by electrophoresis (mass/volume)Ordered By: Patric Polanco on 10-18-2023 Gamma globulin Elph [Mass/Vol] 0.6 g/dL 0.4-1.8 [facility] Serum or plasma hepatitis B virus surface antigen detection by immunoassayOrdered By: Patric Polanco on 10-18-2023 HBV surface Ag IA Ql Negative Negative [facility] Serum or plasma immunoelectr ophoresis interpretation (nominal result)Ordered By: Patric Polanco on 10-18-2023 Interpretation IEP [Interp] Comment . [facility] Comment on above: No monoclonality det ected. Serum tissue transglutaminas e IgA antibody assay (units/volume)Ordered By: Patric Polanco on 10-18-2023 tTG IgA Qn (S) <2 U/mL 0-3 [facility] Comment on above: Negative 0 - 3 Weak Positive 4 - 10 Positive >10 Tissue Transglutaminase (tTG) has been identified as the endomysial antigen. Studies have demonstr- ated that endomysial IgA antibodies have over 99% specificity for gluten sensitive enteropathy. Lawrence antibody assayOrdered By: Patric Polanco on 10-18-2023 Lawrence extractable nuclear Ab (S) [Titer] <0.2 AI 0.0-0.9 [facility] Thin prep Papanicolaou smear with manual screeningOrdered By: Patric Polanco on 10-18-2023 Thin prep Papanicolaou smear with manual screening Comment . [facility] Comment on above: EBV Interpretation C [place]: Antibody Present + Antibody Absent -Interpretation VCA-IgM VCA-IgG EBNA-IgGNo previous infection/ - - -SusceptiblePrimary infection (new + + -or recent)Past Infection +or- + +See comment below* + - -*Results indicate infection with EBV at some time however cannot predict the timing of the infection since antibodies to EBNA usually develop after primary infection or, alternatively, approximately 5-10% of patients with EBV never develop antibodies to EBNA. Thin prep Papanicolaou smear with manual screening 0.9 0.7-1.7 [facility] Total protein bloodOrdered B y: Patric Polanco on 10-18-2023 Protein [Mass/Vol] 5.5 g/dL 6.0-8.5 [facility] Trichrome (control)on 2023 Trichrome (control) Patient Age/Sex Loca tion Account Attending Physician PENNY MCKEON 78/F MS3 [id number] Dr. Tirso Friend MD Specimen: [id number] Received: 10/19/23 Status: ROLANDO Romeo Num: [id number] Spec Type: CARMELO Hardwick Dr: Dr. Caden Roy MD HEADER OPERATION: Laparoscopic subtotal cholecystectomy, liver biopsy PRE-OP DIAGNOSIS: Acute calculous cholecystitis TISSUE SUBMITTED: A - Liver biopsy, B - Gallstones MICROSCOPIC DIAGNOSIS A. Liver, core biopsy: Liver parenchymal tissue with macrovesicular steatosis and bile stasis. See microscopic description and comment. B. Gallbladder and stones, subtotal cholecystectomy: Minute fragments of gallbladder wall with acute and chronic inflammation. Gallstones, sludge material and blood clots. See comment. SJ:nona 10/20/2023 COMMENT B. The specimen predominantly consists of gallstones, blood and sludge material. Correlation with clinical, laboratory findings and appropriate follow up are necessary. Case has been reviewed in consultation with Dr. Del Cid who concurs with the above diagnosis. IDC:AM MICROSCOPIC DESCRIPTION Slides are reviewed. A. The specimen shows liver parenchymal tissue with preserved lobular architecture. Hepatocytes show macrovesicular steatosis, glycogenation of nuclei and bile stasis. Reactive changes are noted. Acute and chronic inflammatory cell infiltrates are noted in the lobules. Portal also shows mild acute and chronic inflammation. Interface inflammation is not seen. Iron stain shows absent iron. Reticulin stain is shows preserved lobular architecture. Trichrome stain shows mild increased portal fibrosis. Significant bridging fibrosis is not seen. PAS stain with and without diastase do not show any abnormal accumulation of protein. All stains are performed with appropriate matched controls. GROSS DESCRIPTION A - Received in fixative is one container labeled with the patient's name and designated liver biopsy. The specimen consists of multiple irregular fragments of núñez-brown soft tissue that in aggregate measure 1.5 x 0.5 x 0.1 cm. The specimen is totally submitted in one cassette. B - Received in fixative is one container labeled with the patient's name and designated Patient Age/Sex Location Account Attending Physician PENNY MCKEON 78/F MS3 [id number] Dr. Tirso Friend MD gallstones. The specimen consists of multiple fragments of brownish-black stones mixed with sludge material and blood clot measuring in aggregate 5.0 x 5.0 x 1.0 cm. No obvious gallbladder wall tissue is identified in the specimen. [employer] tissue predominantly consists of blood clot mixed with sludge material is submitted in one cassette. / SJ:rg 10/19/2023 TC:5 CPT: 29340, 09345, 20199 x5 Patient Age/Sex Location Account Attending Physician PENNY MCKEON 78/F MS3 [id number] Dr. Tirso Friend MD Signed (signature on file) Dr. Rao Sanchez MD 10/20/23 1239 Normal [facility] Comment on above: Performed By: #### P TRI ####[facility] [address] [place], [place], [id number] Basophil percentageOrdered B y: Dennise Batres on 10-17-2023 Basophil percentage 3.4 mg/dL 2.5-4.9 [facility] Bedside Glucoseon 10-17-2023 FINGERSTICK GLU 104 mg/dL Normal 74-106 [facility] Comment on above: Result Comment: JORDAN GEMENT OF PATIENT CARE PER NURSING PROTOCOL Performed By: #### L 3300.0700, L3410.2350, L3400.3800, L503.6030, L800.1280, L100.9950, L3100.3425, L803.2200, L3900.2100, L3000.0375, L503.6550, L3100.5440, L3100.5850 #### [facility] [address] [place], [address] FINGERSTICK GLU 126 mg/dL High 74-106 [facility] Comment on above: Result Comment: JORDAN GEMENT OF PATIENT CARE PER NURSING PROTOCOL Performed By: #### L 3300.0700, L3410.2350, L3400.3800, L503.6030, L800.1280, L100.9950, L3100.3425, L803.2200, L3900.2100, L3000.0375, L503.6550, L3100.5440, L3100.5850 #### [facility] [address] [place], [place], [id number] FINGERSTICK GLU 151 mg/dL High 74-106 [facility] Comment on above: Result Comment: JORDAN AMAYA OF PATIENT CARE PER NURSING PROTOCOL Performed By: #### L 501.080 ####[facility] [address] [place], [address] CBC W/Diff, Automatedon 10-03 Absolute Lymph 1.03 X10 3/uL Normal 0.83-4.51 [facility] Comment on above: Performed By: #### L 100.0100, L500.4050, L501.5200, L501.2300 ####[facility] [address] [place], [address] Absolute Neut 6.0 X10 3/uL Normal 2.0-7.7 [facility] Comment on above: Performed By: #### L 100.0100, L500.4050, L501.5200, L501.2300 ####[facility] [address] [place], [address] Basophils/100 WBC (Bld) 0.5 % Normal 0-1 [facility] Comment on above: Performed By: #### L 100.0100, L500.4050, L501.5200, L501.2300 ####[facility] [address] [place], [address] Eosinophils/100 WBC (Bld) 9.0 % High 0-5 [facility] Comment on above: Performed By: #### L 100.0100, L500.4050, L501.5200, L501.2300 ####[facility] [address] [place], [address] Erythrocyte distribution width (RBC) [Ratio] 15.1 % High 11.6-14.6 [facility] Comment on above: Performed By: #### L 100.0100, L500.4050, L501.5200, L501.2300 ####[facility] [address] [place], [address] Hematocrit (Bld) [Volume fraction] 35.0 % Low 37-47 [facility] Comment on above: Performed By: #### L 100.0100, L500.4050, L501.5200, L501.2300 ####[facility] [address] [place], [address] Hemoglobin (Bld) [Mass/Vol] 11.7 g/dL Low 12.0-15.0 [facility] Comment on above: Performed By: #### L 100.0100, L500.4050, L501.5200, L501.2300 ####[facility] [address] [place], [address] IG% 1.700 High 0.0-0.9 [facility] Comment on above: Result Comment: IG% - Immature Granulocytes (promyelocytes, myelocytes and metamyelocytes) > 1% indicates that a LEFT SHIFT is Present. Performed By: #### L 100.0100, L500.4050, L501.5200, L501.2300 ####[facility] [address] [place], [address] Lymphocytes/100 WBC (Bld) 11.9 % Low 19-41 [facility] Comment on above: Performed By: #### L 100.0100, L500.4050, L501.5200, L501.2300 ####[facility] [address] [place], [address] MCH (RBC) [Entitic mass] 31.3 pg Normal 27.0-32.0 [facility] Comment on above: Performed By: #### L 100.0100, L500.4050, L501.5200, L501.2300 ####[facility] [address] [place], [address] MCHC (RBC) [Mass/Vol] 33.4 g/dL Normal 32-36 [facility] Comment on above: Performed By: #### L 100.0100, L500.4050, L501.5200, L501.2300 ####[facility] [address] [place], [address] MCV (RBC) [Entitic vol] 93.6 fL Normal 81-99 [facility] Comment on above: Performed By: #### L 100.0100, L500.4050, L501.5200, L501.2300 ####[facility] [address] [place], [address] Monocytes/100 WBC (Bld) 7.7 % Normal 0-10 [facility] Comment on above: Performed By: #### L 100.0100, L500.4050, L501.5200, L501.2300 ####[facility] [address] [place], [address] Neutrophils/100 WBC (Bld) 69.2 % Normal 47-70 [facility] Comment on above: Performed By: #### L 100.0100, L500.4050, L501.5200, L501.2300 ####[facility] [address] [place], [address] Nucleated RBC (Bld) [#/Vol] 0 10*3/uL Normal 0-5 [facility] Comment on above: Performed By: #### L 100.0100, L500.4050, L501.5200, L501.2300 ####[facility] [address] [place], [address] Platelet mean volume (Bld) [Entitic vol] 9.3 fL Normal 6.2-12.0 [facility] Comment on above: Performed By: #### L 100.0100, L500.4050, L501.5200, L501.2300 ####[facility] [address] [place], [address] Platelets (Bld) [#/Vol] 145 10*3/uL Low 150-450 [facility] Comment on above: Performed By: #### L 100.0100, L500.4050, L501.5200, L501.2300 ####[facility] [address] [place], [address] RBC (Bld) [#/Vol] 3.74 10*6/uL Low 4.2-5.4 [facility] Comment on above: Performed By: #### L 100.0100, L500.4050, L501.5200, L501.2300 ####[facility] [address] [place], [address] RDW SD 51.9 fl High 35.1-43.9 [facility] Comment on above: Performed By: #### L 100.0100, L500.4050, L501.5200, L501.2300 ####[facility] [address] [place], [address] WBC (Bld) [#/Vol] 8.7 10*3/uL Normal 4.4-11.0 [facility] Comment on above: Performed By: #### L 100.0100, L500.4050, L501.5200, L501.2300 ####[facility] [address] [place], [address] Comprehensive Metabolic Prof [facility] 10-17-2023 Albumin [Mass/Vol] 2.4 g/dL Low 3.2-5.0 [facility] Comment on above: Performed By: #### L 100.0100, L500.4050, L501.5200, L501.2300 ####[facility] [address] [place], [address] Albumin/Globulin [Mass ratio] 0.6 {ratio} Low 0.9-2.4 [facility] Comment on above: Performed By: #### L 100.0100, L500.4050, L501.5200, L501.2300 ####[facility] [address] [place], [address] ALK P 406 U/L High 45-117 [facility] Comment on above: Performed By: #### L 100.0100, L500.4050, L501.5200, L501.2300 ####[facility] [address] [place], [address] ALT [Catalytic activity/Vol] 307 U/L High 13-56 [facility] Comment on above: Performed By: #### L 100.0100, L500.4050, L501.5200, L501.2300 ####[facility] [address] [place], [address] AST [Catalytic activity/Vol] 281 U/L High 15-37 [facility] Comment on above: Performed By: #### L 100.0100, L500.4050, L501.5200, L501.2300 ####[facility] [address] [place], [address] Bilirubin [Mass/Vol] 11.00 mg/dL High 0.20-1.00 [facility] Comment on above: Result Comment: For patients on eltrombopag therapy, use of Dimension [place] TBIL is not recommended. Performed By: #### L 100.0100, L500.4050, L501.5200, L501.2300 ####[facility] [address] [place], [address] BUN/CRE 20.9 RATIO High 10-20 [facility] Comment on above: Performed By: #### L 100.0100, L500.4050, L501.5200, L501.2300 ####[facility] [address] [place], [address] CA,Total 8.9 mg/dL Normal 8.5-10.1 [facility] Comment on above: Performed By: #### L 100.0100, L500.4050, L501.5200, L501.2300 ####[facility] [address] [place], [address] Chloride [Moles/Vol] 108 mmol/L High 98-107 [facility] Comment on above: Performed By: #### L 100.0100, L500.4050, L501.5200, L501.2300 ####[facility] [address] [place], [address] CO2 [Moles/Vol] 21.0 mmol/L Normal 21.0-32.0 [facility] Comment on above: Performed By: #### L 100.0100, L500.4050, L501.5200, L501.2300 ####[facility] [address] [place], [address] Creatinine [Mass/Vol] 1.15 mg/dL High 0.55-1.02 [facility] Comment on above: Result Comment: Mode rate Icterus, Result may be falsely decreased. The validity of the calculated GFR GFRAA in patients over 70 years has not been determined. Clinical correlation is essential. Performed By: #### L 100.0100, L500.4050, L501.5200, L501.2300 ####[facility] [address] [place], [address] ECRCL 53.39 ml/min Normal [facility] Comment on above: Performed By: #### L 100.0100, L500.4050, L501.5200, L501.2300 ####[facility] [address] [place], [address] EST GFR - AA 59 mL/min Low >60 [facility] Comment on above: Result Comment: Afri can Anguillan GFR Calc Performed By: #### L 100.0100, L500.4050, L501.5200, L501.2300 ####[facility] [address] [place], [address] GAP 8 Normal 5-15 [facility] Comment on above: Performed By: #### L 100.0100, L500.4050, L501.5200, L501.2300 ####[facility] [address] [place], [address] GFR/1.73 sq M.predicted among non-blacks MDRD (S/P/Bld) [Vol rate/Area] 49 mL/min/{1.73_m2} Low >60 [facility] Comment on above: Result Comment: Non- GFR Calc Performed By: #### L 100.0100, L500.4050, L501.5200, L501.2300 ####[facility] [address] [place], [address] Globulin (S) [Mass/Vol] 3.7 g/dL Normal 2.2-4.2 [facility] Comment on above: Performed By: #### L 100.0100, L500.4050, L501.5200, L501.2300 ####[facility] [address] [place], [address] Glucose [Mass/Vol] 136 mg/dL High 74-106 [facility] Comment on above: Result Comment: Fast ing Glucose result greater than or equal to 126 mg/dL suggests DIABETES MELLITUS per A.D.A. criteria. Performed By: #### L 100.0100, L500.4050, L501.5200, L501.2300 ####[facility] [address] [place], [address] Potassium [Moles/Vol] 3.5 mmol/L Normal 3.5-5.1 [facility] Comment on above: Performed By: #### L 100.0100, L500.4050, L501.5200, L501.2300 ####[facility] [address] [place], [address] Sodium [Moles/Vol] 137 mmol/L Normal 136-145 [facility] Comment on above: Performed By: #### L 100.0100, L500.4050, L501.5200, L501.2300 ####[facility] [address] [place], [address] T PROT 6.1 g/dL Low 6.4-8.2 [facility] Comment on above: Result Comment: Mode rate Icterus, Result may be falsely decreased. Performed By: #### L 100.0100, L500.4050, L501.5200, L501.2300 ####[facility] [address] [place], [address] Urea nitrogen [Mass/Vol] 24 mg/dL High 7-18 [facility] Comment on above: Performed By: #### L 100.0100, L500.4050, L501.5200, L501.2300 ####[facility] [address] [place], [address] Ferritinon 10-17-2023 Ferritin [Mass/Vol] 321 ng/mL High 8-252 [facility] Comment on above: Result Comment: Mode rate Icterus, Result may be falsely decreased. Performed By: #### L 3300.0700, L3410.2350, L3400.3800, L503.6030, L800.1280, L100.9950, L3100.3425, L803.2200, L3900.2100, L3000.0375, L503.6550, L3100.5440, L3100.5850 #### [facility] [address] [place], [address] Hemoglobin in reticulocytes (mass per reticulocyte)Ordered By: Patric Polanco on 10-17-2023 Hemoglobin (Reticulocytes) [Entitic mass] 35.3 pg 30-35 [facility] Iron measurement (mass/mass) Ordered By: Patric Polanco on 10-17-2023 Iron (Unsp spec) [Mass/Mass] 98 ug/dL 50-170 [facility] Iron+Iron Binding Capacityon 10-17-2023 Iron [Mass/Vol] 98 ug/dL Normal 50-170 [facility] Comment on above: Performed By: #### L 3300.0700, L3410.2350, L3400.3800, L503.6030, L800.1280, L100.9950, L3100.3425, L803.2200, L3900.2100, L3000.0375, L503.6550, L3100.5440, L3100.5850 #### [facility] [address] [place], [address] IRON SATURATION 33.4 Normal 15.0-55.0 [facility] Comment on above: Performed By: #### L 3300.0700, L3410.2350, L3400.3800, L503.6030, L800.1280, L100.9950, L3100.3425, L803.2200, L3900.2100, L3000.0375, L503.6550, L3100.5440, L3100.5850 #### [facility] [address] [place], [place], [address] TIBC 293 ug/dL Normal 250-450 [facility] Comment on above: Performed By: #### L 3300.0700, L3410.2350, L3400.3800, L503.6030, L800.1280, L100.9950, L3100.3425, L803.2200, L3900.2100, L3000.0375, L503.6550, L3100.5440, L3100.5850 #### [facility] [address] [place], [address] Laboratory - Chemistry and C hemistry - challengeOrdered By: Dennise Batres on 10-17-2023 Magnesium [Mass/Vol] 2.2 mg/dL 1.6-2.6 [facility] MR/CON.PCM.GIon 10-17-2023 MR/CON.PCM.GI [facility] Medical Records Department [address] [place] [address] Consultation - GI 10/17/23 1610 MR#: [id number] Acct: [id number] Name: PENNY MCKEON Rep #: [id number] : 1945 78 From: Patric Friend DO PCP: Dr. Laura Bowden, DO Status:ADM IN [place] [facility] [id number] HPI Consult Data Date of Consult: 10/17/23 HPI Narrative Reason for Consultation: cholestatic hepatitis and jaundice HPI Narrative: PENNY MCKEON, is a 78 F who presents with 5 days ago patient had an episode of lower midsternal chest discomfort with nausea that did not radiate anywhere or make her dyspneic that occurred an hour or so after eating homemade shrimp Jesus. She states the next day the pain was gone she felt she did not need to go to the ER because it did not radiate. Last night after eating a doughnut, some cookies, and a submarine sandwich, she had another episode of this discomfort, and overnight she got out of bed use the bathroom but fell to the floor because her legs were feeling weak and she was unable to get up partially because her legs were stuck underneath the bed, she denies injuring herself but was not able to get up and come here until her daughter came to get her and help, upon which her daughter noticed that she was jaundiced which is new. No history of any abdominal surgeries. She is not having pain right now. She has a past medical history of morbid obesity, HTN, HLD, Diabetes mellitus type II. She currently notes the discomfort to her right upper quadrant and epigastric region is primary with palpation and rates it 5-6 out of 10 in severity or dull aching but with palpation sharp and can increase up to 8-9 out of 10 in severity. Workup in the ED included T98.1, heart rate 82, BP 153/64, respiratory rate 16, 97% on room air, CBC with WBC 20.1, hemoglobin 13, platelet 128 with left shift, CMP with sodium 129, potassium 3.3 noted to be slightly hemolyzed thus may be falsely increased, chloride 97, carbon oxide 20, BUN/creatinine 32/1.43, GFR 38, glucose 158, T. bili 12.50, AST/ALT 209/257, alk phos 306, troponin 21, lipase 93, gallbladder ultrasound with solitary gallstone with contracted gallbladder and thickening of the wall, positive Canela sign, acute cholecystitis cannot be excluded. CT scan abdomen pelvis did show a gallbladder with signs of acute cholecystitis and cholelithiasis. There were no signs of choledocholithiasis. 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 She also had MRCP that showed the same findings as the CT scan abdomen pelvis. There was no choledocholithiasis seen on either image. [facility] Medical History Allergic rhinitis Anxiety and depression CKD (chronic kidney disease) Hyperlipidemia Hypertension Hypothyroidism Morbid obesity Type 2 diabetes mellitus Home Medications aspirin 81 mg tablet,delayed release (Adult Aspirin Regimen) 81 mg PO DAILY Blood thinner 10/15/23 [History Last Taken Unknown] atorvastatin 20 mg tablet 20 mg PO DAILY cholesterol 10/15/23 [History Last Taken Unknown] carvedilol 25 mg tablet 25 mg PO Q12H Blood pres 10/15/23 [History Last Taken Unknown] cetirizine 10 mg tablet 10 mg PO DAILY Allergies 10/15/23 [History Last Taken Unknown] cholestyramine-aspartame 4 gram oral powder for susp in a packet (Cholestyramine Light) 1 ea PO DAILY cholesterol 10/15/23 [History Last Taken Unknown] empagliflozin 25 mg tablet (Jardiance) 25 mg PO DAILY Glucose control 10/15/23 [History Last Taken Unknown] ergocalciferol (vitamin D2) 1,250 mcg (50,000 unit) capsule 1,250 mcg PO DAILY Vit D 10/15/23 [History Last Taken Unknown] escitalopram oxalate 20 mg tablet 20 mg PO DAILY Anxiety 10/15/23 [History Last Taken Unknown] fenofibrate nanocrystallized 145 mg tablet 145 mg PO DAILY cholesterol 10/15/23 [History Last Taken Unknown] levothyroxine 50 mcg tablet 50 mcg PO DAILY thyroid 10/15/23 [History Last Taken Unknown] mirabegron 25 mg tablet,extended release 24 hr (Myrbetriq) 25 mg PO Q24H Bladder 10/15/23 [History Last Taken Unknown] montelukast 10 mg tablet 10 mg PO DAILY Wheezing 10/15/23 [History Last Taken Unknown] niacin 1,000 mg tablet,extended release 24 hr 1,000 mg PO DAILY cholesterol 10/15/23 [History Last Taken Unknown] oxybutynin chloride 10 mg tablet,extended release 24 hr 10 mg PO DAILY Bladder 10/15/23 [History Last Taken Unknown] sitagliptin phosphate 50 mg-metformin 1,000 mg tablet (Janumet) 1 tab PO DAILY Glucose 10/15/23 [ History Last Taken Unknown] Allergy/AdvReac Type Severity Reaction Status Date / Time No Known Allergies Allergy Verified 10/15/23 17:26 Family History (Updated 10/15/23 @ 20:[address] Enma Otoole MD) Mother Cancer Diabetes Father Heart disease Surgical History S/P left knee arthroscopy (more content not included)... Normal [facility] MRCP Abdomen without Contras ton 10-17-2023 MRCP Abdomen without Contrast [facility] Imaging Services [address] [place] [address] MRCP Abdomen without Contrast MR#: [id number] Acct: [id number] Name: PENNY MCKEON Rep #: [id number] : 1945 F 78 From: Heath Stauffer MD PCP: Dr. Laura Bowden, Status: ADM IN Study: MRCP Abdomen without Contrast Date of Exam: Exam# [id number] Ordering Dr: Caden Roy MD [id number] EXAM: MR ABDOMEN WITHOUT INTRAVENOUS CONTRAST, MRCP PROTOCOL CLINICAL INDICATION: Hyperbilirubinemia- eval for choledocho vs mass vs Mirizzi TECHNIQUE: Multiplanar and multisequence MR images of the abdomen without intravenous contrast obtained with MRCP sequence. Three-dimensional post-processing reconstructions were performed. COMPARISON: CT abdomen and pelvis and gallbladder ultrasound 10/15/2023 FINDINGS: LOWER THORAX: Normal. No pleural effusion. LIVER: Normal. Normal morphology. GALLBLADDER AND BILE DUCTS: 2.7 cm stone noted within contracted thick-walled gallbladder. There appears to be a mild amount of edema of the tissues adjacent to the gallbladder suggestive of acute cholecystitis. No intra- or extrahepatic biliary ductal dilation. No choledochal filling defect. PANCREAS: Normal. No focal cystic mass. No pancreatic duct dilation. SPLEEN: Normal. Non-enlarged. ADRENALS: Normal. No nodules. KIDNEYS AND URETERS: Normal. Normal renal size and position. No hydronephrosis. STOMACH AND BOWEL: 6 cm duodenal diverticulum is noted. INTRAPERITONEAL SPACE: Normal. No ascites or other fluid collection. VASCULATURE: Normal. Abdominal aorta is non-dilated. LYMPH NODES: No enlarged lymph nodes. MRI/MRCP Abdomen without Contrast IMPRESSION: 1. Large gallstone. Pericholecystic edema suggestive of acute cholecystitis. 2. Normal common bile duct. 3. 6 cm duodenal diverticulum. Electronically Signed: Heath Stauffer MD at 13:17 EST , CC: Dr. Laura Bowden DO; Dr. Caden Roy MD Java Programmer Analyst: Signed Normal [facility] Magnesiumon 10-17-2023 Magnesium [Mass/Vol] 2.2 mg/dL Normal 1.6-2.6 [facility] Comment on above: Performed By: #### L 100.0100, L500.4050, L501.5200, L501.2300 ####[facility] [id number] [place], [place], [id number] No Panel InformationOrdered By: Patric Friend on 10-17-2023 Immature Reticulocyte Fraction 15.40 % 3.00-15.90 [facility] Reticulocyte Count 1.29 % 0.5-1.5 [facility] Total Iron Binding Capacity 293 ug/dL 250-450 [facility] Phosphoruson 10-17-2023 Phosphate [Mass/Vol] 3.4 mg/dL Normal 2.5-4.9 [facility] Comment on above: Performed By: #### L 100.0100, L500.4050, L501.5200, L501.2300 ####[facility] [address] [place], [address] Retic Panelon 10-17-2023 IM RET FRACTION 15.40 Normal 3.00-15.90 [facility] Comment on above: Performed By: #### L 3300.0700, L3410.2350, L3400.3800, L503.6030, L800.1280, L100.9950, L3100.3425, L803.2200, L3900.2100, L3000.0375, L503.6550, L3100.5440, L3100.5850 #### [facility] [address] [place], [place], [id number] RET-HE 35.3 pg High 30-35 [facility] Comment on above: Performed By: #### L 3300.0700, L3410.2350, L3400.3800, L503.6030, L800.1280, L100.9950, L3100.3425, L803.2200, L3900.2100, L3000.0375, L503.6550, L3100.5440, L3100.5850 #### [facility] [address] [place], [place], [id number] Retic Count 1.29 Normal 0.5-1.5 [facility] Comment on above: Performed By: #### L 3300.0700, L3410.2350, L3400.3800, L503.6030, L800.1280, L100.9950, L3100.3425, L803.2200, L3900.2100, L3000.0375, L503.6550, L3100.5440, L3100.5850 #### [facility] [address] [place], [address] Serum or plasma ferritin laura surement (mass/volume)Ordered By: Patric Polanco on 10-17-2023 Ferritin [Mass/Vol] 321 ng/mL 8-252 [facility] Comment on above: Moderate Icterus, Re sult may be falsely decreased. Serum or plasma iron saturat ion measurement (mass fraction)Ordered By: Patric Polanco on 10-17-2023 Iron saturation [Mass fraction] 33.4 % 15.0-55.0 [facility] Urine Cultureon 10-17-2023 [facility] Klebsiella aerogenes Aurora Count 11,000-25,000 Klebsiella aerogenes: REACTION ceFAZolin Islt LOUISA R Cefepime Islt LOUISA <=0.12 S cefTRIAXone Islt LOUISA <=0.25 S Ciprofloxacin Islt LOUISA <=0.25 S Ertapenem Islt LOUISA <=0.12 S Gentamicin Islt LOUISA <=1 S Imipenem Islt LOUISA <=0.25 S levoFLOXacin Islt LOUISA <=0.12 S Nitrofurantoin Islt LOUISA 128 R Tobramycin Islt LOUISA <=1 S TMP SMX Islt LOUISA <=20 S Normal [facility] Comment on above: Performed By: #### M 100.2200 ####[facility] [id number] [facility] [place], [address] Bedside Glucoseon 10-16-2023 FINGERSTICK GLU 210 mg/dL High 74-106 [facility] Comment on above: Result Comment: JORDAN GEMENT OF PATIENT CARE PER NURSING PROTOCOL Performed By: #### L 3300.0700, L3410.2350, L3400.3800, L503.6030, L800.1280, L100.9950, L3100.3425, L803.2200, L3900.2100, L3000.0375, L503.6550, L3100.5440, L3100.5850 #### [facility] [address] [place], [place], [id number] FINGERSTICK GLU 114 mg/dL High 74-106 [facility] Comment on above: Result Comment: JORDAN GEMENT OF PATIENT CARE PER NURSING PROTOCOL Performed By: #### L 3300.0700, L3410.2350, L3400.3800, L503.6030, L800.1280, L100.9950, L3100.3425, L803.2200, L3900.2100, L3000.0375, L503.6550, L3100.5440, L3100.5850 #### [facility] [address] [place], [address] FINGERSTICK GLU 125 mg/dL High 74-106 [facility] Comment on above: Result Comment: JORDAN GEMENT OF PATIENT CARE PER NURSING PROTOCOL Performed By: #### L 3300.0700, L3410.2350, L3400.3800, L503.6030, L800.1280, L100.9950, L3100.3425, L803.2200, L3900.2100, L3000.0375, L503.6550, L3100.5440, L3100.5850 #### [facility] [address] [place], [place], [phone] FINGERSTICK GLU 119 mg/dL High 74-106 [facility] Comment on above: Result Comment: JORDAN GEMENT OF PATIENT CARE PER NURSING PROTOCOL Performed By: #### L 501.080 ####[facility] [address] [place], [place], [id number] CBC W/Diff, Automatedon 10-03 Absolute Lymph 1.13 X10 3/uL Normal 0.83-4.51 [facility] Comment on above: Performed By: #### L 3300.0700, L3410.2350, L3400.3800, L503.6030, L800.1280, L100.9950, L3100.3425, L803.2200, L3900.2100, L3000.0375, L503.6550, L3100.5440, L3100.5850 #### [facility] [address] [place], [place], [phone] (279) Absolute Neut 11.6 X10 3/uL High 2.0-7.7 [facility] Comment on above: Performed By: #### L 3300.0700, L3410.2350, L3400.3800, L503.6030, L800.1280, L100.9950, L3100.3425, L803.2200, L3900.2100, L3000.0375, L503.6550, L3100.5440, L3100.5850 #### [facility] [address] [place], [address] Basophils/100 WBC (Bld) 0.5 % Normal 0-1 [facility] Comment on above: Performed By: #### L 3300.0700, L3410.2350, L3400.3800, L503.6030, L800.1280, L100.9950, L3100.3425, L803.2200, L3900.2100, L3000.0375, L503.6550, L3100.5440, L3100.5850 #### [facility] [address] [place], [place], [phone] (963) Eosinophils/100 WBC (Bld) 6.0 % High 0-5 [facility] Comment on above: Performed By: #### L 3300.0700, L3410.2350, L3400.3800, L503.6030, L800.1280, L100.9950, L3100.3425, L803.2200, L3900.2100, L3000.0375, L503.6550, L3100.5440, L3100.5850 #### [facility] [address] [place], [address] Erythrocyte distribution width (RBC) [Ratio] 14.6 % Normal 11.6-14.6 [facility] Comment on above: Performed By: #### L 3300.0700, L3410.2350, L3400.3800, L503.6030, L800.1280, L100.9950, L3100.3425, L803.2200, L3900.2100, L3000.0375, L503.6550, L3100.5440, L3100.5850 #### [facility] [address] [facility] [place], [place], [phone] Hematocrit (Bld) [Volume fraction] 35.9 % Low 37-47 [facility] Comment on above: Performed By: #### L 3300.0700, L3410.2350, L3400.3800, L503.6030, L800.1280, L100.9950, L3100.3425, L803.2200, L3900.2100, L3000.0375, L503.6550, L3100.5440, L3100.5850 #### [facility] [address] [place], [address] Hemoglobin (Bld) [Mass/Vol] 12.0 g/dL Normal 12.0-15.0 [facility] Comment on above: Performed By: #### L 3300.0700, L3410.2350, L3400.3800, L503.6030, L800.1280, L100.9950, L3100.3425, L803.2200, L3900.2100, L3000.0375, L503.6550, L3100.5440, L3100.5850 #### [facility] [address] [facility] [place], [address] IG% 1.300 High 0.0-0.9 [facility] Comment on above: Result Comment: IG% - Immature Granulocytes (promyelocytes, myelocytes and metamyelocytes) > 1% indicates that a LEFT SHIFT is Present. Performed By: #### L 3300.0700, L3410.2350, L3400.3800, L503.6030, L800.1280, L100.9950, L3100.3425, L803.2200, L3900.2100, L3000.0375, L503.6550, L3100.5440, L3100.5850 #### [facility] [address] [place], [address] Lymphocytes/100 WBC (Bld) 7.6 % Low 19-41 [facility] Comment on above: Performed By: #### L 3300.0700, L3410.2350, L3400.3800, L503.6030, L800.1280, L100.9950, L3100.3425, L803.2200, L3900.2100, L3000.0375, L503.6550, L3100.5440, L3100.5850 #### [facility] [address] [facility] [place], [address] MCH (RBC) [Entitic mass] 31.1 pg Normal 27.0-32.0 [facility] Comment on above: Performed By: #### L 3300.0700, L3410.2350, L3400.3800, L503.6030, L800.1280, L100.9950, L3100.3425, L803.2200, L3900.2100, L3000.0375, L503.6550, L3100.5440, L3100.5850 #### [facility] [address] [facility] [place], [address] MCHC (RBC) [Mass/Vol] 33.4 g/dL Normal 32-36 [facility] Comment on above: Performed By: #### L 3300.0700, L3410.2350, L3400.3800, L503.6030, L800.1280, L100.9950, L3100.3425, L803.2200, L3900.2100, L3000.0375, L503.6550, L3100.5440, L3100.5850 #### [facility] [address] [place], [address] MCV (RBC) [Entitic vol] 93.0 fL Normal 81-99 [facility] Comment on above: Performed By: #### L 3300.0700, L3410.2350, L3400.3800, L503.6030, L800.1280, L100.9950, L3100.3425, L803.2200, L3900.2100, L3000.0375, L503.6550, L3100.5440, L3100.5850 #### [facility] [address] [place], [address] Monocytes/100 WBC (Bld) 6.7 % Normal 0-10 [facility] Comment on above: Performed By: #### L 3300.0700, L3410.2350, L3400.3800, L503.6030, L800.1280, L100.9950, L3100.3425, L803.2200, L3900.2100, L3000.0375, L503.6550, L3100.5440, L3100.5850 #### [facility] [address] [place] [place], [address] Neutrophils/100 WBC (Bld) 77.9 % High 47-70 [facility] Comment on above: Performed By: #### L 3300.0700, L3410.2350, L3400.3800, L503.6030, L800.1280, L100.9950, L3100.3425, L803.2200, L3900.2100, L3000.0375, L503.6550, L3100.5440, L3100.5850 #### [facility] [address] [place], [address] Nucleated RBC (Bld) [#/Vol] 0 10*3/uL Normal 0-5 [facility] Comment on above: Performed By: #### L 3300.0700, L3410.2350, L3400.3800, L503.6030, L800.1280, L100.9950, L3100.3425, L803.2200, L3900.2100, L3000.0375, L503.6550, L3100.5440, L3100.5850 #### [facility] [address] [place], [address] Platelet mean volume (Bld) [Entitic vol] 10.0 fL Normal 6.2-12.0 [facility] Comment on above: Performed By: #### L 3300.0700, L3410.2350, L3400.3800, L503.6030, L800.1280, L100.9950, L3100.3425, L803.2200, L3900.2100, L3000.0375, L503.6550, L3100.5440, L3100.5850 #### [facility] [address] [place], [address] Platelets (Bld) [#/Vol] 139 10*3/uL Low 150-450 [facility] Comment on above: Performed By: #### L 3300.0700, L3410.2350, L3400.3800, L503.6030, L800.1280, L100.9950, L3100.3425, L803.2200, L3900.2100, L3000.0375, L503.6550, L3100.5440, L3100.5850 #### [facility] [address] [place], [place], [phone] (303) RBC (Bld) [#/Vol] 3.86 10*6/uL Low 4.2-5.4 [facility] Comment on above: Performed By: #### L 3300.0700, L3410.2350, L3400.3800, L503.6030, L800.1280, L100.9950, L3100.3425, L803.2200, L3900.2100, L3000.0375, L503.6550, L3100.5440, L3100.5850 #### [facility] [address] [place], [address] RDW SD 49.7 fl High 35.1-43.9 [facility] Comment on above: Performed By: #### L 3300.0700, L3410.2350, L3400.3800, L503.6030, L800.1280, L100.9950, L3100.3425, L803.2200, L3900.2100, L3000.0375, L503.6550, L3100.5440, L3100.5850 #### [facility] [address] [place], [address] WBC (Bld) [#/Vol] 14.9 10*3/uL High 4.4-11.0 [facility] Comment on above: Performed By: #### L 3300.0700, L3410.2350, L3400.3800, L503.6030, L800.1280, L100.9950, L3100.3425, L803.2200, L3900.2100, L3000.0375, L503.6550, L3100.5440, L3100.5850 #### [facility] [address] [place], [address] Comprehensive Metabolic Prof ilon 10-16-2023 Albumin [Mass/Vol] 2.5 g/dL Low 3.2-5.0 [facility] Comment on above: Performed By: #### L 3300.0700, L3410.2350, L3400.3800, L503.6030, L800.1280, L100.9950, L3100.3425, L803.2200, L3900.2100, L3000.0375, L503.6550, L3100.5440, L3100.5850 #### [facility] [address] [place], [address] Albumin/Globulin [Mass ratio] 0.7 {ratio} Low 0.9-2.4 [facility] Comment on above: Performed By: #### L 3300.0700, L3410.2350, L3400.3800, L503.6030, L800.1280, L100.9950, L3100.3425, L803.2200, L3900.2100, L3000.0375, L503.6550, L3100.5440, L3100.5850 #### [facility] [address] [place], [place], [id number] ALK P 349 U/L High 45-117 [facility] Comment on above: Performed By: #### L 3300.0700, L3410.2350, L3400.3800, L503.6030, L800.1280, L100.9950, L3100.3425, L803.2200, L3900.2100, L3000.0375, L503.6550, L3100.5440, L3100.5850 #### [facility] [address] [place], [place], [id number] ALT [Catalytic activity/Vol] 265 U/L High 13-56 [facility] Comment on above: Performed By: #### L 3300.0700, L3410.2350, L3400.3800, L503.6030, L800.1280, L100.9950, L3100.3425, L803.2200, L3900.2100, L3000.0375, L503.6550, L3100.5440, L3100.5850 #### [facility] [address] [place], [place], [id number] AST [Catalytic activity/Vol] 249 U/L High 15-37 [facility] Comment on above: Performed By: #### L 3300.0700, L3410.2350, L3400.3800, L503.6030, L800.1280, L100.9950, L3100.3425, L803.2200, L3900.2100, L3000.0375, L503.6550, L3100.5440, L3100.5850 #### [facility] [address] [place], [address] Bilirubin [Mass/Vol] 12.20 mg/dL High 0.20-1.00 [facility] Comment on above: Result Comment: For patients on eltrombopag therapy, use of Dimension [place] TBIL is not recommended. Performed By: #### L 3300.0700, L3410.2350, L3400.3800, L503.6030, L800.1280, L100.9950, L3100.3425, L803.2200, L3900.2100, L3000.0375, L503.6550, L3100.5440, L3100.5850 #### [facility] [address] [place], [address] (276) BUN/CRE 24.2 RATIO High 10-20 [facility] Comment on above: Performed By: #### L 3300.0700, L3410.2350, L3400.3800, L503.6030, L800.1280, L100.9950, L3100.3425, L803.2200, L3900.2100, L3000.0375, L503.6550, L3100.5440, L3100.5850 #### [facility] [address] [place], [address] CA,Total 8.9 mg/dL Normal 8.5-10.1 [facility] Comment on above: Performed By: #### L 3300.0700, L3410.2350, L3400.3800, L503.6030, L800.1280, L100.9950, L3100.3425, L803.2200, L3900.2100, L3000.0375, L503.6550, L3100.5440, L3100.5850 #### [facility] [address] [place], [address] (848) Chloride [Moles/Vol] 105 mmol/L Normal 98-107 [facility] Comment on above: Performed By: #### L 3300.0700, L3410.2350, L3400.3800, L503.6030, L800.1280, L100.9950, L3100.3425, L803.2200, L3900.2100, L3000.0375, L503.6550, L3100.5440, L3100.5850 #### [facility] [address] [place], [place], [phone] (224) CO2 [Moles/Vol] 18.0 mmol/L Low 21.0-32.0 [facility] Comment on above: Performed By: #### L 3300.0700, L3410.2350, L3400.3800, L503.6030, L800.1280, L100.9950, L3100.3425, L803.2200, L3900.2100, L3000.0375, L503.6550, L3100.5440, L3100.5850 #### [facility] [address] [place], [address] (766) Creatinine [Mass/Vol] 1.24 mg/dL High 0.55-1.02 [facility] Comment on above: Result Comment: Mode rate Icterus, Result may be falsely decreased. The validity of the calculated GFR GFRAA in patients over 70 years has not been determined. Clinical correlation is essential. Performed By: #### L 3300.0700, L3410.2350, L3400.3800, L503.6030, L800.1280, L100.9950, L3100.3425, L803.2200, L3900.2100, L3000.0375, L503.6550, L3100.5440, L3100.5850 #### [facility] [address] [place], [address] (052) ECRCL 49.46 ml/min Normal [facility] Comment on above: Performed By: #### L 3300.0700, L3410.2350, L3400.3800, L503.6030, L800.1280, L100.9950, L3100.3425, L803.2200, L3900.2100, L3000.0375, L503.6550, L3100.5440, L3100.5850 #### [facility] [address] [place], [place], [id number] EST GFR - AA 54 mL/min Low >60 [facility] Comment on above: Result Comment: Afri can Anguillan GFR Calc Performed By: #### L 3300.0700, L3410.2350, L3400.3800, L503.6030, L800.1280, L100.9950, L3100.3425, L803.2200, L3900.2100, L3000.0375, L503.6550, L3100.5440, L3100.5850 #### [facility] [address] [place], [place], [id number] GAP 14 Normal 5-15 [facility] Comment on above: Performed By: #### L 3300.0700, L3410.2350, L3400.3800, L503.6030, L800.1280, L100.9950, L3100.3425, L803.2200, L3900.2100, L3000.0375, L503.6550, L3100.5440, L3100.5850 #### [facility] [address] [place], [address] GFR/1.73 sq M.predicted among non-blacks MDRD (S/P/Bld) [Vol rate/Area] 45 mL/min/{1.73_m2} Low >60 [facility] Comment on above: Result Comment: Non- GFR Calc Performed By: #### L 3300.0700, L3410.2350, L3400.3800, L503.6030, L800.1280, L100.9950, L3100.3425, L803.2200, L3900.2100, L3000.0375, L503.6550, L3100.5440, L3100.5850 #### [facility] [address] [place], [address] Globulin (S) [Mass/Vol] 3.8 g/dL Normal 2.2-4.2 [facility] Comment on above: Performed By: #### L 3300.0700, L3410.2350, L3400.3800, L503.6030, L800.1280, L100.9950, L3100.3425, L803.2200, L3900.2100, L3000.0375, L503.6550, L3100.5440, L3100.5850 #### [facility] [address] [place], [address] Glucose [Mass/Vol] 115 mg/dL High 74-106 [facility] Comment on above: Result Comment: Fast ing Glucose result from 100 to 125 mg/dL suggests IMPAIRED HOMEOSTASIS per A.D.A. criteria. Performed By: #### L 3300.0700, L3410.2350, L3400.3800, L503.6030, L800.1280, L100.9950, L3100.3425, L803.2200, L3900.2100, L3000.0375, L503.6550, L3100.5440, L3100.5850 #### [facility] [address] [place], [address] Potassium [Moles/Vol] 3.7 mmol/L Normal 3.5-5.1 [facility] Comment on above: Performed By: #### L 3300.0700, L3410.2350, L3400.3800, L503.6030, L800.1280, L100.9950, L3100.3425, L803.2200, L3900.2100, L3000.0375, L503.6550, L3100.5440, L3100.5850 #### [facility] [address] [place], [address] Sodium [Moles/Vol] 137 mmol/L Normal 136-145 [facility] Comment on above: Performed By: #### L 3300.0700, L3410.2350, L3400.3800, L503.6030, L800.1280, L100.9950, L3100.3425, L803.2200, L3900.2100, L3000.0375, L503.6550, L3100.5440, L3100.5850 #### [facility] [address] [place], [place], [id number] T PROT 6.3 g/dL Low 6.4-8.2 [facility] Comment on above: Result Comment: Mode rate Icterus, Result may be falsely decreased. Performed By: #### L 3300.0700, L3410.2350, L3400.3800, L503.6030, L800.1280, L100.9950, L3100.3425, L803.2200, L3900.2100, L3000.0375, L503.6550, L3100.5440, L3100.5850 #### [facility] [address] [place], [place], [id number] Urea nitrogen [Mass/Vol] 30 mg/dL High 7-18 [facility] Comment on above: Performed By: #### L 3300.0700, L3410.2350, L3400.3800, L503.6030, L800.1280, L100.9950, L3100.3425, L803.2200, L3900.2100, L3000.0375, L503.6550, L3100.5440, L3100.5850 #### [facility] [address] [place], [place], [address] Consultation - Surgicalon Consultation - Surgical [facility] Medical Records Department [address] [place] [address] Consultation - Surgical 10/16/23 0804 MR#: [id number] Acct: [id number] Name: PENNY MCKEON Rep #: [id number] : 1945 78 From: Caden Roy MD PCP: Dr. Laura Bowden, DO Status:ADM IN Location: MS3 [id number] Assessment Plan Assessment/Plan (1) Acute calculous cholecystitis: (2) Acquired hyperbilirubinemia: (3) Elevated liver enzymes: PLAN: Plan Patient is a 78-year-old female who presents for acute onset abdominal pain with associated prodromal period of similar symptoms and some more subacute symptoms of fatigue and abnormal bowel movements. While she is markedly tender in the right upper quadrant over her gallbladder I find it unusual to have acute cholecystitis with such a high bilirubin. This is especially unusual given her nondilated common bile duct on either ultrasound or CT imaging. Although patient had a rather acute experience of pain, her reports of generally feeling unwell and this unusual presentation raise the possibility for potential more insidious etiology such as a neoplasm. It is also possible that her large gallbladder neck gallstone could be contributing Mirizzi???type compression of the common hepatic/common bile duct system, but the size of the stone is not terribly exceptional. Case has been discussed with with gastroenterology who is still yet to evaluate the patient. Pr eliminarily we are just discussing potential for MRCP. In the interim recommend n.p.o., IV fluids, empiric IV antibiotic coverage to mitigate patient's risk for cholangitis, and trending of her compr ehensive metabolic panel. HPI Consult Data Date of Consult: 10/16/23 HPI Narrative Reason for Consultation: Concern for acute cholecystitis HPI Narrative: PENNY MCKEON, is a 78 F who presented to [facility] after she had been found down at her home. Her daughter who accompanies her in her room provides much of the history. She shares that they celebrated patient's birthday on , 2021 and she states that patient was in good spirits overall feeling well at that time. They do share that they enjoyed vegetables, [employer], cookie cake, and donuts for their meal. Then approximately 2 AM the following morning patient reports she developed severe pain and tried to get out of bed but slid down to the floor. She was finally discovered by her daughter 30 hours later and brought in for further evaluation. Patient states that she was convinced this was noncardiac pain as although it was chest pain it felt worse with deep breathing. Patient's ER workup was notable for elevated liver function testing and markedly elevated bilirubin (greater than 12). Initially emergency medicine had performed only right upper quadrant ultrasound which showed a contracted gallbladder with a large gallstone in the gallbladder neck. There was some gallbladder wall thickening and radiology noted that cute cholecystitis could not be excluded. Upon noting patient's markedly elevated bilirubin and the otherwise limited information from her ultrasound I recommended performing CT of the abdomen pelvis with oral contrast (as patient had elevated creatinine on presentation). Patient and her daughter confirm that there is a prior episode of pain approximately 6 days ago after some Jesus for dinner. However, this was self-limited and patient seemed fine thereafter. They also confirmed that Mrs. Mckeon has been generally feeling poorly. By this they detail what to say that she has been more tired and has had a poor appetite. She is also noted some diarrhea. Her primary care provider ordered a stool assay and she was determined to be negative for C. difficile but positive for another infectious concern and was a started on antibiotics. She is also scheduled to see a oriental medicine practitioner but canceled on the account of her symptoms. Through this. If feeling poorly Mrs. Mckeon reports a weight loss of approximately 23 pounds. Patient medically has a history of hypertension, hyperlipidemia, morbid obesity, obstructive sleep apnea on CPAP, well-controlled diabetes (she states that her last A1c was 7) and chronic kidney disease stage III. She has not ever undergone a surgery. [facility] Medical History Allergic rhinitis Anxiety and depression CKD (chronic kidney disease) Hyperlipidemia Hypertension Hypothyroidism Morbid obesity Type 2 diabetes mellitus Home Medications aspirin 81 mg tablet,delayed release (Adult Aspirin Regimen) 81 mg PO DAILY Blood thinner 10/15/23 [History Last Taken Unknown] atorvastatin 20 mg tablet 20 mg PO DAILY cholesterol 10/15/23 [History Last Taken Unknown] carvedilol 25 mg tablet 25 mg PO Q12H Blood pres 10/15/23 [History Last Taken Unknown] cetirizine 10 mg tablet 10 mg PO DAILY Allergie (more content not included)... Normal [facility] Hemoglobin A1con 10-16-2023 HbA1c (Bld) [Mass fraction] 6.7 % High 3.8-5.6 [facility] Comment on above: Result Comment: Norm al < 5.7 % Prediabetic 5.7 - 6.4 % Diabetic >or= 6.5 % Please note range changes. Performed By: #### L 3300.0700, L3410.2350, L3400.3800, L503.6030, L800.1280, L100.9950, L3100.3425, L803.2200, L3900.2100, L3000.0375, L503.6550, L3100.5440, L3100.5850 #### [facility] [address] [place], [place], [id number] No Panel InformationOrdered By: Rene Dasilva on 10-16-2023 Thyroid Stimulating Hormone (TSH) 1.89 uIU/mL 0.358-3.74 [facility] Thyroid Stim Hormone (TSH)on 10-16-2023 TSH 1.89 uIU/mL Normal 0.358-3.74 [facility] Comment on above: Performed By: #### L 3300.0700, L3410.2350, L3400.3800, L503.6030, L800.1280, L100.9950, L3100.3425, L803.2200, L3900.2100, L3000.0375, L503.6550, L3100.5440, L3100.5850 #### [facility] [address] [place], [place], [address] Whole blood hemoglobin A1c/t otal hemoglobin ratio (mass fraction)Ordered By: Rene Dasilva on 10-16-2023 HbA1c (Bld) [Mass fraction] 6.7 % 3.8-5.6 [facility] Comment on above: Normal < 5.7 % Predi abetic 5.7 - 6.4 % Diabetic >or= 6.5 % Please note range changes. 12 Lead EKGon 10-15-2023 12 Lead EKG [facility] Cardiovascular Services [address] [place] [address] 12 Lead EKG 10/15/23 1854 MR#: [id number] Acct: [id number] Name: PENNY MCKEON Rep #: [id number] : 1945 78 From: Ronen Conroy MD Attending Dr: Dr. Tirso Friend MD Status : ADM IN Ordering Dr: Timbo Snowden MD Date: 10/15/23 [place] [facility] [place] F C Admitted: 10/15/23 Test Reason : ABDOMINAL PAIN Blood Pressure : / mmHG Vent. Rate : 079 BPM Atrial Rate : 079 BPM P-R Int : 174 ms QRS Dur : 088 ms QT Int : 422 ms P-R-T Axes : 046 -17 010 degrees QTc Int : 483 ms Normal sinus rhythm Minimal voltage criteria for LVH, may be normal variant ( R in aVL ) Borderline ECG Confirmed by MAXI ROSA, RONEN ([id number]), editorial manager BRANDIE LIZAMA ([id number]) on 10/17/2023 1:56:11 PM Referred By: BB Confirmed By:RONEN CONROY MD 10/17/23 1356 Date Ronen Conroy MD CC: Dr. Timbo Snowden MD; Dr. Laura Bowden DO; Dr. Tirso Friend MD Signed Normal [facility] Abdomen/Pel W ORAL Cont Only on 10-15-2023 Abdomen/Pel W ORAL Cont Only [facility] Imaging Services [address] [place] [address] Abdomen/Pel W ORAL Cont Only MR#: [id number] Acct: [id number] Name: PENNY MCKEON Rep #: [id number] : 1945 F 78 From: Jhonatan Robledo MD PCP: Dr. Laura Bowden DO Status: ADM IN Study: Abdomen/Pel W ORAL Cont Only Date of Exam: Exam# [id number] Ordering Dr: Timbo Snowden MD [id number] INDICATION: upper abd pain, n/v, hyperbilirubinemia EXAMINATION: CT Abdomen And Pelvis W/O Contrast Injection TECHNIQUE: Helically acquired images were obtained of the abdomen and pelvis with sagittal and coronal reconstructed images. Individualized dose optimization techniques were used for this CT. IV contrast dosage and agent: None. Oral contrast: Small amount of contrast seen in the distal small bowel and proximal colon. COMPARISON: Ultrasound from earlier same day. FINDINGS: VESSELS: No abdominal aortic aneurysm. LIVER: No intrahepatic or extrahepatic biliary duct dilation. GALLBLADDER: Gallstones within a contracted gallbladder. PANCREAS: No focal solid or cystic mass. No evidence of pancreatitis. SPLEEN: Normal. ADRENAL GLANDS: Normal. KIDNEYS AND URETERS: No urinary tract stone. No hydronephrosis or hydroureter. No significant asymmetric perinephric stranding. URINARY BLADDER: Unremarkable. BOWEL: Diverticulosis with no evidence of diverticulitis. Appendix appears normal. No evidence of bowel obstruction. REPRODUCTIVE ORGANS: Unremarkable. PERITONEUM: No intraabdominal free fluid or free air. LYMPH NODES: No pathologically enlarged mesenteric or retroperitoneal lymph nodes. ABDOMINAL WALL: No abdominal or pelvic wall hernia. BONES: No acute abnormality. LOWER CHEST: Visualized lung bases are unremarkable. CT/Abdomen/Pel W ORAL Cont Only IMPRESSION: No acute abnormality. Electronically Signed: Jhonatan Robledo DO at 23:05 EST , CC: Dr. Timbo Snowden MD; Dr. Laura Bowden DO Java Programmer Analyst: Signed Normal [facility] Absolute lymphocyte countOrd ered By: Timbo Snowden on 10-15-2023 Lymphocytes Auto (Unsp spec) [#/Vol] 1.07 10*3/uL 0.83-4.51 [facility] Basophil percentageOrdered B y: Timbo Snowden on 10-15-2023 Basophil percentage 10-25 SEEN /hpf 0-5 [facility] Basophils/100 WBC (Bld) 0.4 % 0-1 [facility] Bilirubin [Mass/Vol] 12.50 mg/dL 0.20-1.00 [facility] Comment on above: For patients on eltr ombopag therapy, use of Dimension [place] TBIL is not recommended. Chloride [Moles/Vol] 97 mmol/L 98-107 [facility] Eosinophils/100 WBC (Bld) 3.9 % 0-5 [facility] Glucose [Mass/Vol] 158 mg/dL 74-106 [facility] Comment on above: Fasting Glucose resu lt greater than or equal to 126 mg/dL suggests DIABETES MELLITUS per A.D.A. criteria. Neutrophils (Bld) [#/Vol] 16.8 10*3/uL 2.0-7.7 [facility] Neutrophils/100 WBC (Bld) 83.6 % 47-70 [facility] Potassium [Moles/Vol] 3.3 mmol/L 3.5-5.1 [facility] Comment on above: Slight Hemolysis, Re sult may be falsely increased. Protein [Mass/Vol] 6.9 g/dL 6.4-8.2 [facility] Comment on above: Moderate Icterus, Re sult may be falsely decreased. Sodium [Moles/Vol] 129 mmol/L 136-145 [facility] WBC (Bld) [#/Vol] 20.1 10*3/uL 4.4-11.0 [facility] Bedside Glucoseon 10-15-2023 FINGERSTICK GLU 119 mg/dL High 74-106 [facility] Comment on above: Result Comment: JORDAN MORALESENT OF PATIENT CARE PER NURSING PROTOCOL Performed By: #### L 501.080 ####[facility] [address] [place], [address] Bilirubin Test strip Ql (U)O rdered By: Timbo Snowden on 10-15-2023 Bilirubin Ql (U) Negative Negative [facility] Blood erythrocytes count (nu mber/volume)Ordered By: Timbo Snowden on 10-15-2023 RBC (Bld) [#/Vol] 4.09 10*6/uL 4.2-5.4 [facility] Blood hemoglobin measurement (mass/volume)Ordered By: Timbo Snowden on 10-15-2023 Hemoglobin (Bld) [Mass/Vol] 13.0 g/dL 12.0-15.0 [facility] Blood lymphocytes/100 leukoc ytesOrdered By: Timbo Snowden on 10-15-2023 Lymphocytes/100 WBC (Bld) 5.3 % 19-41 [facility] Blood monocytes/100 leukocyt esOrdered By: Timbotete Snowden on 10-15-2023 Monocytes/100 WBC (Bld) 6.0 % 0-10 [facility] Blood platelet mean volumeOr dered By: Timbo Snowden on 10-15-2023 Platelet mean volume (Bld) [Entitic vol] 9.9 fL 6.2-12.0 [facility] CBC W/Diff, Automatedon 10-03 Absolute Lymph 1.07 X10 3/uL Normal 0.83-4.51 [facility] Comment on above: Performed By: #### L 3300.0700, L3410.2350, L3400.3800, L503.6030, L800.1280, L100.9950, L3100.3425, L803.2200, L3900.2100, L3000.0375, L503.6550, L3100.5440, L3100.5850 #### [facility] [address] [facility] [place], [place], [id number] Absolute Neut 16.8 X10 3/uL High 2.0-7.7 [facility] Comment on above: Performed By: #### L 3300.0700, L3410.2350, L3400.3800, L503.6030, L800.1280, L100.9950, L3100.3425, L803.2200, L3900.2100, L3000.0375, L503.6550, L3100.5440, L3100.5850 #### [facility] [address] [place], [address] Basophils/100 WBC (Bld) 0.4 % Normal 0-1 [facility] Comment on above: Performed By: #### L 3300.0700, L3410.2350, L3400.3800, L503.6030, L800.1280, L100.9950, L3100.3425, L803.2200, L3900.2100, L3000.0375, L503.6550, L3100.5440, L3100.5850 #### [facility] [address] [place], [address] Eosinophils/100 WBC (Bld) 3.9 % Normal 0-5 [facility] Comment on above: Performed By: #### L 3300.0700, L3410.2350, L3400.3800, L503.6030, L800.1280, L100.9950, L3100.3425, L803.2200, L3900.2100, L3000.0375, L503.6550, L3100.5440, L3100.5850 #### [facility] [address] [facility] [place], [place], [id number] Erythrocyte distribution width (RBC) [Ratio] 14.3 % Normal 11.6-14.6 [facility] Comment on above: Performed By: #### L 3300.0700, L3410.2350, L3400.3800, L503.6030, L800.1280, L100.9950, L3100.3425, L803.2200, L3900.2100, L3000.0375, L503.6550, L3100.5440, L3100.5850 #### [facility] [address] [facility] [facility] [place], [address] Hematocrit (Bld) [Volume fraction] 37.4 % Normal 37-47 [facility] Comment on above: Performed By: #### L 3300.0700, L3410.2350, L3400.3800, L503.6030, L800.1280, L100.9950, L3100.3425, L803.2200, L3900.2100, L3000.0375, L503.6550, L3100.5440, L3100.5850 #### [facility] [address] [place], [address] Hemoglobin (Bld) [Mass/Vol] 13.0 g/dL Normal 12.0-15.0 [facility] Comment on above: Performed By: #### L 3300.0700, L3410.2350, L3400.3800, L503.6030, L800.1280, L100.9950, L3100.3425, L803.2200, L3900.2100, L3000.0375, L503.6550, L3100.5440, L3100.5850 #### [facility] [address] [facility] [place], [address] IG% 0.800 Normal 0.0-0.9 [facility] Comment on above: Result Comment: IG% - Immature Granulocytes (promyelocytes, myelocytes and metamyelocytes) > 1% indicates that a LEFT SHIFT is Present. Performed By: #### L 3300.0700, L3410.2350, L3400.3800, L503.6030, L800.1280, L100.9950, L3100.3425, L803.2200, L3900.2100, L3000.0375, L503.6550, L3100.5440, L3100.5850 #### [facility] [address] [place], [address] Lymphocytes/100 WBC (Bld) 5.3 % Low 19-41 [facility] Comment on above: Performed By: #### L 3300.0700, L3410.2350, L3400.3800, L503.6030, L800.1280, L100.9950, L3100.3425, L803.2200, L3900.2100, L3000.0375, L503.6550, L3100.5440, L3100.5850 #### [facility] [address] [place], [address] MCH (RBC) [Entitic mass] 31.8 pg Normal 27.0-32.0 [facility] Comment on above: Performed By: #### L 3300.0700, L3410.2350, L3400.3800, L503.6030, L800.1280, L100.9950, L3100.3425, L803.2200, L3900.2100, L3000.0375, L503.6550, L3100.5440, L3100.5850 #### [facility] [address] [place], [address] MCHC (RBC) [Mass/Vol] 34.8 g/dL Normal 32-36 [facility] Comment on above: Performed By: #### L 3300.0700, L3410.2350, L3400.3800, L503.6030, L800.1280, L100.9950, L3100.3425, L803.2200, L3900.2100, L3000.0375, L503.6550, L3100.5440, L3100.5850 #### [facility] [address] [place], [address] MCV (RBC) [Entitic vol] 91.4 fL Normal 81-99 [facility] Comment on above: Performed By: #### L 3300.0700, L3410.2350, L3400.3800, L503.6030, L800.1280, L100.9950, L3100.3425, L803.2200, L3900.2100, L3000.0375, L503.6550, L3100.5440, L3100.5850 #### [facility] [address] [place], [address] Monocytes/100 WBC (Bld) 6.0 % Normal 0-10 [facility] Comment on above: Performed By: #### L 3300.0700, L3410.2350, L3400.3800, L503.6030, L800.1280, L100.9950, L3100.3425, L803.2200, L3900.2100, L3000.0375, L503.6550, L3100.5440, L3100.5850 #### [facility] [address] [place], [place], [phone] (428) Neutrophils/100 WBC (Bld) 83.6 % High 47-70 [facility] Comment on above: Performed By: #### L 3300.0700, L3410.2350, L3400.3800, L503.6030, L800.1280, L100.9950, L3100.3425, L803.2200, L3900.2100, L3000.0375, L503.6550, L3100.5440, L3100.5850 #### [facility] [address] [place], [address] Nucleated RBC (Bld) [#/Vol] 0 10*3/uL Normal 0-5 [facility] Comment on above: Performed By: #### L 3300.0700, L3410.2350, L3400.3800, L503.6030, L800.1280, L100.9950, L3100.3425, L803.2200, L3900.2100, L3000.0375, L503.6550, L3100.5440, L3100.5850 #### [facility] [address] [place], [address] Platelet mean volume (Bld) [Entitic vol] 9.9 fL Normal 6.2-12.0 [facility] Comment on above: Performed By: #### L 3300.0700, L3410.2350, L3400.3800, L503.6030, L800.1280, L100.9950, L3100.3425, L803.2200, L3900.2100, L3000.0375, L503.6550, L3100.5440, L3100.5850 #### [facility] [address] [place], [place], [phone] Platelets (Bld) [#/Vol] 128 10*3/uL Low 150-450 [facility] Comment on above: Performed By: #### L 3300.0700, L3410.2350, L3400.3800, L503.6030, L800.1280, L100.9950, L3100.3425, L803.2200, L3900.2100, L3000.0375, L503.6550, L3100.5440, L3100.5850 #### [facility] [address] [place], [place], [id number] RBC (Bld) [#/Vol] 4.09 10*6/uL Low 4.2-5.4 [facility] Comment on above: Performed By: #### L 3300.0700, L3410.2350, L3400.3800, L503.6030, L800.1280, L100.9950, L3100.3425, L803.2200, L3900.2100, L3000.0375, L503.6550, L3100.5440, L3100.5850 #### [facility] [address] [place], [place], [id number] RDW SD 48.5 fl High 35.1-43.9 [facility] Comment on above: Performed By: #### L 3300.0700, L3410.2350, L3400.3800, L503.6030, L800.1280, L100.9950, L3100.3425, L803.2200, L3900.2100, L3000.0375, L503.6550, L3100.5440, L3100.5850 #### [facility] [address] [place], [place], [id number] WBC (Bld) [#/Vol] 20.1 10*3/uL High 4.4-11.0 [facility] Comment on above: Performed By: #### L 3300.0700, L3410.2350, L3400.3800, L503.6030, L800.1280, L100.9950, L3100.3425, L803.2200, L3900.2100, L3000.0375, L503.6550, L3100.5440, L3100.5850 #### [facility] [address] [place], [address] Comprehensive Metabolic Prof kson 10-15-2023 Albumin [Mass/Vol] 2.7 g/dL Low 3.2-5.0 [facility] Comment on above: Order Comment: 'TROP ' Serial specimen #1, #2 or #3: 1 Performed By: #### L 3300.0700, L3410.2350, L3400.3800, L503.6030, L800.1280, L100.9950, L3100.3425, L803.2200, L3900.2100, L3000.0375, L503.6550, L3100.5440, L3100.5850 #### [facility] [address] [place], [address] Albumin/Globulin [Mass ratio] 0.6 {ratio} Low 0.9-2.4 [facility] Comment on above: Order Comment: 'TROP ' Serial specimen #1, #2 or #3: 1 Performed By: #### L 3300.0700, L3410.2350, L3400.3800, L503.6030, L800.1280, L100.9950, L3100.3425, L803.2200, L3900.2100, L3000.0375, L503.6550, L3100.5440, L3100.5850 #### [facility] [address] [place], [place], [phone] (818) ALK P 306 U/L High 45-117 [facility] Comment on above: Order Comment: 'TROP ' Serial specimen #1, #2 or #3: 1 Performed By: #### L 3300.0700, L3410.2350, L3400.3800, L503.6030, L800.1280, L100.9950, L3100.3425, L803.2200, L3900.2100, L3000.0375, L503.6550, L3100.5440, L3100.5850 #### [facility] [address] [place], [place], [phone] (374) ALT [Catalytic activity/Vol] 257 U/L High 13-56 [facility] Comment on above: Order Comment: 'TROP ' Serial specimen #1, #2 or #3: 1 Performed By: #### L 3300.0700, L3410.2350, L3400.3800, L503.6030, L800.1280, L100.9950, L3100.3425, L803.2200, L3900.2100, L3000.0375, L503.6550, L3100.5440, L3100.5850 #### [facility] [address] [place], [place], [id number] AST [Catalytic activity/Vol] 209 U/L High 15-37 [facility] Comment on above: Order Comment: 'TROP ' Serial specimen #1, #2 or #3: 1 Result Comment: Slig ht Hemolysis, Result may be falsely increased. Performed By: #### L 3300.0700, L3410.2350, L3400.3800, L503.6030, L800.1280, L100.9950, L3100.3425, L803.2200, L3900.2100, L3000.0375, L503.6550, L3100.5440, L3100.5850 #### [facility] [address] [place], [address] Bilirubin [Mass/Vol] 12.50 mg/dL High 0.20-1.00 [facility] Comment on above: Order Comment: 'TROP ' Serial specimen #1, #2 or #3: 1 Result Comment: For patients on eltrombopag therapy, use of Dimension [place] TBIL is not recommended. Performed By: #### L 3300.0700, L3410.2350, L3400.3800, L503.6030, L800.1280, L100.9950, L3100.3425, L803.2200, L3900.2100, L3000.0375, L503.6550, L3100.5440, L3100.5850 #### [facility] [address] [place], [place], [phone] (248) BUN/CRE 23.1 RATIO High 10-20 [facility] Comment on above: Order Comment: 'TROP ' Serial specimen #1, #2 or #3: 1 Performed By: #### L 3300.0700, L3410.2350, L3400.3800, L503.6030, L800.1280, L100.9950, L3100.3425, L803.2200, L3900.2100, L3000.0375, L503.6550, L3100.5440, L3100.5850 #### [facility] [address] [place], [place], [phone] (193) CA,Total 9.3 mg/dL Normal 8.5-10.1 [facility] Comment on above: Order Comment: 'TROP ' Serial specimen #1, #2 or #3: 1 Performed By: #### L 3300.0700, L3410.2350, L3400.3800, L503.6030, L800.1280, L100.9950, L3100.3425, L803.2200, L3900.2100, L3000.0375, L503.6550, L3100.5440, L3100.5850 #### [facility] [address] [place], [address] Chloride [Moles/Vol] 97 mmol/L Low 98-107 [facility] Comment on above: Order Comment: 'TROP ' Serial specimen #1, #2 or #3: 1 Performed By: #### L 3300.0700, L3410.2350, L3400.3800, L503.6030, L800.1280, L100.9950, L3100.3425, L803.2200, L3900.2100, L3000.0375, L503.6550, L3100.5440, L3100.5850 #### [facility] [address] [place], [address] CO2 [Moles/Vol] 20.0 mmol/L Low 21.0-32.0 [facility] Comment on above: Order Comment: 'TROP ' Serial specimen #1, #2 or #3: 1 Performed By: #### L 3300.0700, L3410.2350, L3400.3800, L503.6030, L800.1280, L100.9950, L3100.3425, L803.2200, L3900.2100, L3000.0375, L503.6550, L3100.5440, L3100.5850 #### [facility] [address] [place], [address] Creatinine [Mass/Vol] 1.43 mg/dL High 0.55-1.02 [facility] Comment on above: Order Comment: 'TROP ' Serial specimen #1, #2 or #3: 1 Result Comment: Mode rate Icterus, Result may be falsely decreased. The validity of the calculated GFR GFRAA in patients over 70 years has not been determined. Clinical correlation is essential. Performed By: #### L 3300.0700, L3410.2350, L3400.3800, L503.6030, L800.1280, L100.9950, L3100.3425, L803.2200, L3900.2100, L3000.0375, L503.6550, L3100.5440, L3100.5850 #### [facility] [address] [place], [address] ECRCL 45.05 ml/min Normal [facility] Comment on above: Order Comment: 'TROP ' Serial specimen #1, #2 or #3: 1 Performed By: #### L 3300.0700, L3410.2350, L3400.3800, L503.6030, L800.1280, L100.9950, L3100.3425, L803.2200, L3900.2100, L3000.0375, L503.6550, L3100.5440, L3100.5850 #### [facility] [address] [place], [address] EST GFR - AA 46 mL/min Low >60 [facility] Comment on above: Order Comment: 'TROP ' Serial specimen #1, #2 or #3: 1 Result Comment: Afri can [place]guillan GFR Calc Performed By: #### L 3300.0700, L3410.2350, L3400.3800, L503.6030, L800.1280, L100.9950, L3100.3425, L803.2200, L3900.2100, L3000.0375, L503.6550, L3100.5440, L3100.5850 #### [facility] [address] [place], [address] GAP 12 Normal 5-15 [facility] Comment on above: Order Comment: 'TROP ' Serial specimen #1, #2 or #3: 1 Performed By: #### L 3300.0700, L3410.2350, L3400.3800, L503.6030, L800.1280, L100.9950, L3100.3425, L803.2200, L3900.2100, L3000.0375, L503.6550, L3100.5440, L3100.5850 #### [facility] [address] [place], [place], [address] GFR/1.73 sq M.predicted among non-blacks MDRD (S/P/Bld) [Vol rate/Area] 38 mL/min/{1.73_m2} Low >60 [facility] Comment on above: Order Comment: 'TROP ' Serial specimen #1, #2 or #3: 1 Result Comment: Non- GFR Calc Performed By: #### L 3300.0700, L3410.2350, L3400.3800, L503.6030, L800.1280, L100.9950, L3100.3425, L803.2200, L3900.2100, L3000.0375, L503.6550, L3100.5440, L3100.5850 #### [facility] [address] [place], [place], [id number] Globulin (S) [Mass/Vol] 4.2 g/dL Normal 2.2-4.2 [facility] Comment on above: Order Comment: 'TROP ' Serial specimen #1, #2 or #3: 1 Performed By: #### L 3300.0700, L3410.2350, L3400.3800, L503.6030, L800.1280, L100.9950, L3100.3425, L803.2200, L3900.2100, L3000.0375, L503.6550, L3100.5440, L3100.5850 #### [facility] [address] [place], [address] Glucose [Mass/Vol] 158 mg/dL High 74-106 [facility] Comment on above: Order Comment: 'TROP ' Serial specimen #1, #2 or #3: 1 Result Comment: Fast ing Glucose result greater than or equal to 126 mg/dL suggests DIABETES MELLITUS per A.D.A. criteria. Performed By: #### L 3300.0700, L3410.2350, L3400.3800, L503.6030, L800.1280, L100.9950, L3100.3425, L803.2200, L3900.2100, L3000.0375, L503.6550, L3100.5440, L3100.5850 #### [facility] [address] [place], [address] Potassium [Moles/Vol] 3.3 mmol/L Low 3.5-5.1 [facility] Comment on above: Order Comment: 'TROP ' Serial specimen #1, #2 or #3: 1 Result Comment: Slig ht Hemolysis, Result may be falsely increased. Performed By: #### L 3300.0700, L3410.2350, L3400.3800, L503.6030, L800.1280, L100.9950, L3100.3425, L803.2200, L3900.2100, L3000.0375, L503.6550, L3100.5440, L3100.5850 #### [facility] [address] [place], [address] Sodium [Moles/Vol] 129 mmol/L Low 136-145 [facility] Comment on above: Order Comment: 'TROP ' Serial specimen #1, #2 or #3: 1 Performed By: #### L 3300.0700, L3410.2350, L3400.3800, L503.6030, L800.1280, L100.9950, L3100.3425, L803.2200, L3900.2100, L3000.0375, L503.6550, L3100.5440, L3100.5850 #### [facility] [address] [place], [address] T PROT 6.9 g/dL Normal 6.4-8.2 [facility] Comment on above: Order Comment: 'TROP ' Serial specimen #1, #2 or #3: 1 Result Comment: Mode rate Icterus, Result may be falsely decreased. Performed By: #### L 3300.0700, L3410.2350, L3400.3800, L503.6030, L800.1280, L100.9950, L3100.3425, L803.2200, L3900.2100, L3000.0375, L503.6550, L3100.5440, L3100.5850 #### [facility] [address] [place], [address] Urea nitrogen [Mass/Vol] 33 mg/dL High 7-18 [facility] Comment on above: Order Comment: 'TROP ' Serial specimen #1, #2 or #3: 1 Performed By: #### L 3300.0700, L3410.2350, L3400.3800, L503.6030, L800.1280, L100.9950, L3100.3425, L803.2200, L3900.2100, L3000.0375, L503.6550, L3100.5440, L3100.5850 #### [facility] [address] [place], [address] Culture, urineOrdered By: Caity Snowden on 10-15-2023 Bacteria identified Cx Nom (U) Klebsiella aerogenes [facility] Bacteria identified Cx Nom (U) Klebsiella aerogenes [facility] Determination of erythrocyte mean corpuscular volume (MCV)Ordered By: Timbo Snowden on 10-15-2023 MCV (RBC) [Entitic vol] 91.4 fL 81-99 [facility] Emergency Department Summary on 10-15-2023 Emergency Department Summary [facility] Medical Records Department [address] [place] [address] Emergency Department Summary 10/15/23 MR#: [id number] Acct: [id number] Name: PENNY MCKEON Rep #: [id number] : 1945 78 From: Timbo Snowden MD PCP: Dr. Laura Bowden, DO Status:ADM IN Location: [facility]3 QY020-3 HPI HPI - GI History of Present Illness Chief Complaint: Fall Informant: patient and family Narrative Narrative: 5 days ago patient had an episode of lower midsternal chest discomfort with nausea that did not radiate anywhere or make her dyspneic that occurred an hour or so after eating homemade shrimp Jesus. She states the next day the pain was gone she felt she did not need to go to the ER because it did not radiate. Last night after eating a doughnut, some cookies, and a submarine sandwich, she had another episode of this discomfort, and overnight she got out of bed use the bathroom but fell to the floor because her legs were feeling weak and she was unable to get up partially because her legs were stuck underneath the bed, she denies injuring herself but was not able to get up and come here until her daughter came to get her and help, upon which her daughter noticed that she was jaundiced which is new. No history of any abdominal surgeries. She is not having pain right now. No fevers that she knows of. Generalized weakness started overnight. [facility] Medical History Allergic rhinitis Anxiety and depression CKD (chronic kidney disease) Hyperlipidemia Hypertension Hypothyroidism Morbid obesity Type 2 diabetes mellitus Home Medications aspirin 81 mg tablet,delayed release (Adult Aspirin Regimen) 81 mg PO DAILY Blood thinner 10/15/23 [History Last Taken Unknown] atorvastatin 20 mg tablet 20 mg PO DAILY cholesterol 10/15/23 [History Last Taken Unknown] carvedilol 25 mg tablet 25 mg PO Q12H Blood pres 10/15/23 [History Last Taken Unknown] cetirizine 10 mg tablet 10 mg PO DAILY Allergies 10/15/23 [History Last Taken Unknown] cholestyramine-aspartame 4 gram oral powder for susp in a packet (Cholestyramine Light) 1 ea PO DAILY cholesterol 10/15/23 [History Last Taken Unknown] empagliflozin 25 mg tablet (Jardiance) 25 mg PO DAILY Glucose control 10/15/23 [History Last Taken Unknown] ergocalciferol (vitamin D2) 1,250 mcg (50,000 unit) capsule 1,250 mcg PO DAILY Vit D 10/15/23 [History Last Taken Unknown] escitalopram oxalate 20 mg tablet 20 mg PO DAILY Anxiety 10/15/23 [History Last Taken Unknown] fenofibrate nanocrystallized 145 mg tablet 145 mg PO DAILY cholesterol 10/15/23 [History Last Taken Unknown] levothyroxine 50 mcg tablet 50 mcg PO DAILY thyroid 10/15/23 [History Last Taken Unknown] mirabegron 25 mg tablet,extended release 24 hr (Myrbetriq) 25 mg PO Q24H Bladder 10/15/23 [History Last Taken Unknown] montelukast 10 mg tablet 10 mg PO DAILY Wheezing 10/15/23 [History Last Taken Unknown] niacin 1,000 mg tablet,extended release 24 hr 1,000 mg PO DAILY cholesterol 10/15/23 [History Last Taken Unknown] oxybutynin chloride 10 mg tablet,extended release 24 hr 10 mg PO DAILY Bladder 10/15/23 [History Last Taken Unknown] sitagliptin phosphate 50 mg-metformin 1,000 mg tablet (Janumet) 1 tab PO DAILY Glucose 10/15/23 [History Last Taken Unknown] Allergy/AdvReac Type Severity Reaction Status Date / Time No Known Allergies Allergy Verified 10/15/23 17:26 Family History (Updated 10/15/23 @ 20:[address] Enma Otoole MD) Mother Cancer Diabetes Father Heart disease Surgical History S/P left knee arthroscopy Social History (Updated 10/15/23 @ 20:[address] Enma Otoole MD) household members: none Smoking Status: Former smoker how long ago did patient quit smoking: Smoked age 22-until 30 years old, 1 ppd until quit. alcohol intake: never substance use type: does not use ROS ROS ED Constitutional Constitutional ED: Reports weakness; Denies chills or fever(s) Eyes Eyes: Denies change in vision or diplopia ENT ENT ED: Denies rhinorrhea or sore throat Cardiovascular Cardiovascular: Reports chest pain; Denies palpitations Respiratory/Chest Respiratory/Chest: Denies cough or dyspnea Gastrointestinal Gastrointestinal: Reports diarrhea, nausea and vomiting; Denies abdominal pain, hematemesis, hematochezia or melena Genitourinary Genitourinary ED: Denies dysuria or hematuria Musculoskeletal Musculoskeletal: Denies back pain or neck pain Integumentary Denies abscess or rash Neurologic Neurologic: Denies headache(s), paresthesias or weakness Psychiatric Psychiatric: Denies anxiety or suicidal thoughts EXAM Physical Exam Const Vital Signs: 10/15/23 16:51 10/15/23 17:07 10/15/23 20:00 Temperature 98.1 F 97.8 F Temperature Source Tempo (more content not included)... Normal [facility] Gallbladderon 10-15-[address] [facility] Imaging Services [address] [place] [address] Gallbladder MR#: [id number] Acct: [id number] Name: PENNY MCKEON Rep #: [id number] : 1945 F 78 From: Tracy Shearer MD PCP: Dr. Laura Bowden, DO Status: REG ER Study: Gallbladder Date of Exam: 10/15/23 Exam# [id number] Ordering Dr: Timbo Snowden MD [id number] STUDY: ABDOMINAL ULTRASOUND - RIGHT UPPER QUADRANT REASON FOR VISIT: Female, 78 years old PAIN TECHNIQUE: Ultrasound evaluation of the right upper quadrant was performed with real-time and static loyola-scale imaging. TECHNICAL QUALITY: Limited. Examination limited by bowel gas. COMPARISON: None. FINDINGS: Liver: The liver measures 21.8 cm. There is increased echogenicity consistent with fatty infiltration. The bile ducts are within normal limits. There is hepatic color flow. The direction of portal flow is hepatopetal. There is no demonstrated mass lesion. Gallbladder: There is a markedly distended gallbladder. The gallbladder wall measures 5.1 mm. There is a positive sonographic Canela''s sign. There is no pericholecystic fluid. There is a solitary echogenic gallstone within the gallbladder. Common Bile Duct (C.B.D.): The common bile duct measures 5.0 mm. Pancreas: Normal size of the head and body with obscuration of the tail of the pancreas. There is normal echogenicity of the generalized pancreas. There is no demonstrated pancreatic mass or cyst in the visualized portion. Right Kidney: Normal size of the right kidney. The right kidney measures 12.3 x 6.5 x 5.2 cm. Normal renal cortex. The right cortex measures 1.4 cm. There is no demonstrated renal mass or cyst. There is no right hydronephrosis. US/Gallbladder IMPRESSION: Solitary gallstone with contracted gallbladder and thickening of the wall. Positive Canela sign. Acute cholecystitis cannot be excluded. If this represents a clinical concern, recommend follow-up with HIDA scan. Diffuse fatty liver, remainder of the right upper quadrant ultrasound unremarkable. Electronically Signed: Tracy Shearer MD at 19:54 EST , CC: Dr. Timbo Snowden MD; Dr. Laura Bowden DO Java Programmer Analyst: Signed Normal [facility] H AND P Exam - Hospitaliston 10-15-2023 H&P Exam - Hospitalist [facility] Medical Records Department [address] [place] [address] H P Exam - Hospitalist 10/15/232005 MR#: [id number] Acct: [id number] Name: PENNY MCKEON Rep #: [id number] : 1945 78 From: Enma Otoole MD PCP: Dr. Laura Bowden, Status:ADM IN [place] [facility] [place] HPI - General General Date of Admission: 10/15/23 Date of Service: 10/15/23 Chief Complaint: Abdominal pain, nausea. HPI Narrative The 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 78 y/o F retired from [employer] w/ PMHx: Morbid obesity, HTN, HLD, Diabetes mellitus type II, Former tobacco use who presents to the [facility] ED on 10/15/23 with history of episode of lower midsternal chest discomfort with nausea with no radiation that occurred approximately 5 days prior following eating a heavy meal shrimp Jesus with resolution of discomfort the next day however again the evening prior to current presentation she was noted to have eaten a large sandwich as well as some cookies and donuts and had a similar episode of discomfort and eventually overnight while attempting to get up to use the restroom she felt incredibly weak and fatigued unfortunately falling with her leg stuck underneath the bed but could not get up until her daughter was able to help her and upon helping her she noted that her skin was yellowed prompting ED evaluation. Patient denies any current pain in her right upper quadrant or epigastric region at this time. She currently notes the discomfort to her right upper quadrant and epigastric region is primary with palpation and rates it 5-6 out of 10 in severity or dull aching but with palpation sharp and can increase up to 8-9 out of 10 in severity. Workup in the ED included T98.1, heart rate 82, BP 153/64, respiratory rate 16, 97% on room air, CBC with WBC 20.1, hemoglobin 13, platelet 128 with left shift, CMP with sodium 129, potassium 3.3 noted to be slightly hemolyzed thus may be falsely increased, chloride 97, carbon oxide 20, BUN/creatinine 32/1.43, GFR 38, glucose 158, T. bili 12.50, AST/ALT 209/257, alk phos 306, troponin 21, lipase 93, gallbladder ultrasound with solitary gallstone with contracted gallbladder and thickening of the wall, positive Canela sign, acute cholecystitis cannot be excluded. In the ED patient ministered maintenance IV fluid, Zosyn as well as Zofran 4 mg IV x 1. [facility] Medical History (Updated 10/15/23 @ 20:[address] Enma Otoole MD) Allergic rhinitis Anxiety and depression CKD (chronic kidney disease) Hyperlipidemia Hypertension Hypothyroidism Morbid obesity Type 2 diabetes mellitus Home Medications atorvastatin 20 mg tablet mg 10/15/23 [History Last Taken Unknown] carvedilol 25 mg tablet mg 10/15/23 [History Last Taken Unknown] cetirizine 10 mg tablet mg 10/15/23 [History Last Taken Unknown] cholestyramine-aspartame 4 gram oral powder for susp in a packet (Cholestyramine Light) ea 10/15/23 [History Last Taken Unknown] empagliflozin 25 mg tablet (Jardiance) mg 10/15/23 [History Last Taken Unknown] ergocalciferol (vitamin D2) 1,250 mcg (50,000 unit) capsule 10/15/23 [History Last Taken Unknown] escitalopram oxalate 20 mg tablet mg 10/15/23 [History Last Taken Unknown] fenofibrate nanocrystallized 145 mg tablet mg PO 10/15/23 [History Last Taken Unknown] levothyroxine 50 mcg tablet mcg 10/15/23 [History Last Taken Unknown] mirabegron 25 mg tablet,extended release 24 hr (Myrbetriq) mg PO 10/15/23 [History Last Taken Unknown] montelukast 10 mg tablet mg 10/15/23 [History Last Taken Unknown] niacin 1,000 mg tablet,extended release 24 hr mg PO 10/15/23 [History Last Taken Unknown] oxybutynin chloride 10 mg tablet,extended release 24 hr mg PO 10/15/23 [History Last Taken Unknown] sitagliptin phosphate 50 mg-metformin 1,000 mg tablet (Janumet) tab 10/15/23 [History Last Taken Unknown] Allergy/AdvReac Type Severity Reaction Status Date / Time No Known Allergies Allergy Verified 10/15/23 17:26 Family History (Updated 10/15/23 @ 20:[address] Enma Otoole MD) Mother Cancer Diabetes Father Heart disease Surgical History (Updated 10/15/23 @ 20:[address] Enma Otoole MD) S/P left knee arthroscopy Social History (Updated 10/15/23 @ 20:[address] Enma Otoole MD) household members: none Smoking Status: Former smoker how long ago did patient quit smoking: Smoked age 22-until 30 years old, 1 ppd until quit. alcohol intake: never substance use type: does not use ROS ROS Narrative Admission Review of Systems: CONSTITUTIONAL: No weight loss, fever, chills, + weakness or fatigue. HEENT: + Scleral icterus. Eyes: No visual loss, blurred vision, double vision. Ears, Nose, Throat: No hearing loss, sneezing, congestion, runny nose or sore throat. SKIN: No rash or itching, lesions, wounds. + Jaundiced appearance. CARDIOVASCULAR: No chest pain, chest pressure or chest discomfort, palp (more content not included)... Normal [facility] Hematocrit Auto (Bld) [Volum e fraction]Ordered By: Timbo Snowden on 10-15-2023 Hematocrit (Bld) [Volume fraction] 37.4 % 37-47 [facility] Ketones Test strip Ql (U)Ord ered By: Timbo Snowden on 10-15-2023 Ketones Ql (U) Negative Negative [facility] L501.4020on 10-15-2023 TROPONIN-I HS 21 pg/mL Normal 3.0-54.0 [facility] Comment on above: Order Comment: 'TROP ' Serial specimen #1, #2 or #3: 1 Result Comment: Plea se Note: New Test Units and Gender Specific Reference Ranges. For more information see Policy Stat Procedure [place] High Sensitivity Troponin (TNIH) and attachments. Performed By: #### L 3300.0700, L3410.2350, L3400.3800, L503.6030, L800.1280, L100.9950, L3100.3425, L803.2200, L3900.2100, L3000.0375, L503.6550, L3100.5440, L3100.5850 #### [facility] [address] [place], [address] Laboratory - Chemistry and C hemistry - challengeOrdered By: Timbo Snowden on 10-15-2023 ALP [Catalytic activity/Vol] 306 U/L 45-117 [facility] ALT [Catalytic activity/Vol] 257 U/L 13-56 [facility] CO2 [Moles/Vol] 20.0 mmol/L 21.0-32.0 [facility] Globulin (S) [Mass/Vol] 4.2 g/dL 2.2-4.2 [facility] Lipase [Catalytic activity/Vol] 93 U/L 13-75 [facility] Comment on above: Please note:LIPASE r evised reference range effective 23. New Lipase methodology. Expected to produce lower values than the previous assay method. NEW Reference Range: 13 - 75 U/L Urea nitrogen/Creatinine [Mass ratio] 23.1 mg/mg 10-20 [facility] Laboratory - Chemistry and C hemistry - challengeOrdered By: Enma Otoole on 10-15-2023 Magnesium [Mass/Vol] 1.4 mg/dL 1.6-2.6 [facility] Laboratory - Hematology and Cell countsOrdered By: Timbo Snowden on 10-15-2023 Erythrocyte distribution width (RBC) [Entitic vol] 48.5 fL 35.1-43.9 [facility] Erythrocyte distribution width (RBC) [Ratio] 14.3 % 11.6-14.6 [facility] Immature granulocytes/100 WBC (Bld) 0.800 % 0.0-0.9 [facility] Comment on above: IG% - Immature Granu locytes (promyelocytes, myelocytes and metamyelocytes) > 1% indicates that a LEFT SHIFT is Present. MCH (RBC) [Entitic mass] 31.8 pg 27.0-32.0 [facility] Nucleated RBC/100 WBC (Bld) [Ratio] 0 % 0-5 [facility] Lipaseon 10-15-2023 Lipase [Catalytic activity/Vol] 93 U/L High 13-75 [facility] Comment on above: Order Comment: 'TROP ' Serial specimen #1, #2 or #3: 1 Result Comment: Alec solano note: LIPASE revised reference range effective 23. New Lipase methodology. Expected to produce lower values than the previous assay method. NEW Reference Range: 13 - 75 U/L Performed By: #### L 3300.0700, L3410.2350, L3400.3800, L503.6030, L800.1280, L100.9950, L3100.3425, L803.2200, L3900.2100, L3000.0375, L503.6550, L3100.5440, L3100.5850 #### [facility] [address] [place], [place], [id number] MCHC Auto (RBC) [Mass/Vol]Or dered By: Timbo Snowden on 10-15-2023 MCHC (RBC) [Mass/Vol] 34.8 g/dL 32-36 [facility] Magnesiumon 10-15-2023 Magnesium [Mass/Vol] 1.4 mg/dL Low 1.6-2.6 [facility] Comment on above: Order Comment: Comme nts: may add to ED labs Performed By: #### L 3300.0700, L3410.2350, L3400.3800, L503.6030, L800.1280, L100.9950, L3100.3425, L803.2200, L3900.2100, L3000.0375, L503.6550, L3100.5440, L3100.5850 #### [facility] [address] [place], [place], [id number] Mucus LM Ql (Urine sed)Order ed By: Timbo Snowden on 10-15-2023 Mucus Ql (Urine sed) 0 SEEN /hpf [facility] Nitrite Test strip Ql (U)Ord ered By: Timbo Snowden on 10-15-2023 Nitrite Ql (U) Negative Negative [facility] No Panel InformationOrdered By: Timbo Snowden on 10-15-2023 Estimated Creatinine Clearance Calc 45.05 ml/min [facility] Estimated GFR (MDRD) Amer 46 mL/min >60 [facility] Comment on above: GFR Calc Estimated GFR (MDRD) Non-Af Amer 38 mL/min >60 [facility] Comment on above: Non- GFR Calc Troponin I High Sensitivity 21 pg/mL 3.0-54.0 [facility] Comment on above: Please Note: New Danielle t Units and Gender Specific Reference Ranges. For more information see Policy Stat Procedure [place] High Sensitivity Troponin (TNIH) and attachments. Platelets bldOrdered By: Elvi Snowden on 10-15-2023 Platelets (Bld) [#/Vol] 128 10*3/uL 150-450 [facility] Protein Test strip Ql (U)Ord ered By: Timbo Snowden on 10-15-2023 Protein Ql (U) 15 mg/dl Negative [facility] Serum or plasma albumin esthela urement (mass/volume)Ordered By: Timbo Snowden on 10-15-2023 Albumin [Mass/Vol] 2.7 g/dL 3.2-5.0 [facility] Serum or plasma albumin/glob ulin mass ratioOrdered By: Timbo Snowden on 10-15-2023 Albumin/Globulin [Mass ratio] 0.6 {ratio} 0.9-2.4 [facility] Serum or plasma calcium esthela urement (mass/volume)Ordered By: Timbo Snowden on 10-15-2023 Calcium [Mass/Vol] 9.3 mg/dL 8.5-10.1 [facility] Serum or plasma creatinine m easurement (mass/volume)Ordered By: Timbo Snowden on 10-15-2023 Creatinine [Mass/Vol] 1.43 mg/dL 0.55-1.02 [facility] Comment on above: Moderate Icterus, Re sult may be falsely decreased.The validity of the calculated GFR & GFRAA in patients over 70 years has not been determined. Clinical correlation is essential. Serum or plasma urea nitroge n measurement (mass/volume)Ordered By: Timbo Snowden on 10-15-2023 Urea nitrogen [Mass/Vol] 33 mg/dL 7-18 [facility] Squamous epithelial cells de tection in urine sediment by light microscopyOrdered By: Timbo Snowden on 10-15-2023 Epithelial cells.squamous LM Ql (Urine sed) 0-5 SEEN /hpf 5-10 [facility] Thin prep Papanicolaou smear with manual screeningOrdered By: Timbo Snowden on 10-15-2023 Thin prep Papanicolaou smear with manual screening 209 U/L 15-37 [facility] Comment on above: Slight Hemolysis, Re sult may be falsely increased. Thin prep Papanicolaou smear with manual screening 12 -15 [facility] Urinalysis, Completeon 10-15 BACTERIA RARE Normal None Seen [facility] Comment on above: Order Comment: CLEAN CATCH Performed By: #### L 3300.0700, L3410.2350, L3400.3800, L503.6030, L800.1280, L100.9950, L3100.3425, L803.2200, L3900.2100, L3000.0375, L503.6550, L3100.5440, L3100.5850 #### [facility] [address] [place], [place], [phone] EPI,SQUAMOUS 0-5 SEEN Normal 5-10 [facility] Comment on above: Order Comment: CLEAN CATCH Performed By: #### L 3300.0700, L3410.2350, L3400.3800, L503.6030, L800.1280, L100.9950, L3100.3425, L803.2200, L3900.2100, L3000.0375, L503.6550, L3100.5440, L3100.5850 #### [facility] [address] [place], [place], [id number] WBC 10-25 SEEN Normal 0-5 [facility] Comment on above: Order Comment: CLEAN CATCH Performed By: #### L 3300.0700, L3410.2350, L3400.3800, L503.6030, L800.1280, L100.9950, L3100.3425, L803.2200, L3900.2100, L3000.0375, L503.6550, L3100.5440, L3100.5850 #### [facility] [address] [place], [address] Mucus Ql (Urine sed) 0 SEEN Normal [facility] Comment on above: Order Comment: CLEAN CATCH Performed By: #### L 3300.0700, L3410.2350, L3400.3800, L503.6030, L800.1280, L100.9950, L3100.3425, L803.2200, L3900.2100, L3000.0375, L503.6550, L3100.5440, L3100.5850 #### [facility] [address] [place], [address] RBC 0 SEEN Normal 0-5 [facility] Comment on above: Order Comment: CLEAN CATCH Performed By: #### L 3300.0700, L3410.2350, L3400.3800, L503.6030, L800.1280, L100.9950, L3100.3425, L803.2200, L3900.2100, L3000.0375, L503.6550, L3100.5440, L3100.5850 #### [facility] [address] [place], [place], [phone] Urine blood detectionOrdered By: Timbo Snowden on 10-15-2023 RBC Ql (U) 10 /ul Negative [facility] RBC Ql (U) 0 SEEN /hpf 0-5 [facility] Urine clarityOrdered By: Elvi Snowden on 10-15-2023 Clarity (U) Clear Clear [facility] Urine color determinationOrd ered By: Timbo Snowden on 10-15-2023 Color (U) Yellow Yellow [facility] Urine glucose detectionOrder ed By: Timbo Snowden on 10-15-2023 Glucose Ql (U) 1000 mg/dl Normal [facility] Urine leukocyte esterase det ection by dipstickOrdered By: Timbo Snowden on 10-15-2023 Leukocyte esterase Test strip Ql (U) 500 /ul Negative [facility] Urine pHOrdered By: Timbo Snowden on 10-15-2023 pH (U) 6.5 [pH] 5.0 - 8.0 [facility] Urine sediment bacteria coun t by microscopy (number/high power field)Ordered By: Timbo Snowden on 10-15-2023 Bacteria LM.HPF (Urine sed) [#/Area] RARE /hpf None Seen [facility] Urine specific gravity measu rementOrdered By: Timbo Snowden on 10-15-2023 Specific gravity (U) [Rel density] 1.005 1.002-1.03 0 [facility] Urobilinogen Auto test strip Ql (U)Ordered By: Timbo Snowden on 10-15-2023 Urobilinogen Ql (U) Normal mg/dl Normal [facility] C diff Tox gens Stl Ql DONNY+p robeon 09-09-2023 C. difficile toxin genes DONNY+probe Ql (Stl) Negative Normal Negative for C. difficile toxin by PCR [facility] Comment on above: Order Comment: Speci men Type: STOOL SPECIMEN Ordering Facility: [facility] Address: [address] [place] [address] Performed By: #### 5 4067-4 #### [facility] CLIA [id number] [address] [place] FECAL LACTOFERRIN/LEUKOCYTES on 09-09-2023 Lactoferrin IA Ql (Stl) Positive for lac toferrin, which may indicate presence of fecal white blood cells Abnormal Negative [facility] Comment on above: Order Comment: Speci men Type: STOOL SPECIMEN Ordering Facility: [facility] Address: [address] [place] [address] Performed By: #### F ECWBC #### [facility] CLIA [id number] [address] [place] [address] OF [facility] Gastrointestinal pathogens i dentified DONNY+probe Nom (Stl)on 09-09-2023 Campylobacter sp DNA DONNY+probe Nom (Unsp spec) Not detected Normal Not Detected [facility] Comment on above: Order Comment: Speci men Type: BLOOD SPECIMEN Ordering Facility: [facility] Address: [address] [place], [place] [address] Performed By: #### 5 5454-3 #### [facility] CLIA [id number] [address] [place] [address] Salmonella sp DNA DONNY+probe Ql (Unsp spec) Not detected Normal Not Detected [facility] Comment on above: Order Comment: Speci men Type: BLOOD SPECIMEN Ordering Facility: [facility] Address: [address] [place], [place] [address] Performed By: #### 5 5454-3 #### [facility] CLIA [id number] [address] [place] [address] Shiga toxin stx gene DONNY+probe Nom (Unsp spec) Not detected Normal Not Detected [facility] Comment on above: Order Comment: Speci men Type: BLOOD SPECIMEN Ordering Facility: [facility] Address: [address] [place] [address] Performed By: #### 5 5454-3 #### [facility] CLIA [id number] [address] [place] [address] Shigella sp DNA DONNY+probe Ql (Unsp spec) Not detected Normal Not Detected [facility] Comment on above: Order Comment: Speci men Type: BLOOD SPECIMEN Ordering Facility: [facility] Address: [address] [place], [place] [address] Performed By: #### 5 5454-3 #### [facility] CLIA [id number] [address] [place] [address] ECHOon 06-17-2023 Echocardiography Echocardiography Rep ort: Transthoracic Echo [facility] Date of service: 06/17/2023 1:05:52 PM Indication: dyspnea Technologist: Ofelia Beck RD Interpreting physician: Ramone Cade MD PATIENT: Name: PENNY MCKEON : 1945 Age: 77 years Gender: F History of hypertension, diabetes mellitus, dyslipidemia and chronic kidney disease. Primary rhythm: sinus. Height: 162.56 cm BSA: 2.42 m Weight: 130.18 kg BMI: 49.3 kg/m Heart rate 82 bpm Blood pressure 141/73 mmHg Color Doppler was utilized to interrogate the cardiac valves assessed and spectral Doppler was utilized to determine the flow velocities and pressure gradients reported in this exam. MEASUREMENTS: Value Indexed Normal Max aortic dimension 3.0 cm Ao < 3.8 Left atrium diameter 3.3 cm (2D) Left atrial volume 50 ml (biplane A-L) 20 ml/m Nhan <= 34 LV stroke volume 60 ml (2D 4-ch.) LVOT stroke volume 77 ml 34 ml/m LV end diastolic volume 105 ml (2D 4-ch.) 43.3 ml/m 29<=EDVi<62 LV end systolic volume 45 ml (2D 4-ch.) 18.5 ml/m Ejection Fraction 57 % (2D 4-ch.) EF > 54 FINDINGS: LEFT VENTRICLE The left ventricle is normal in size. Left ventricular systolic function is normal. Indeterminate left ventricular diastolic dysfunction. Mitral annular lateral E/e': 18.0. Mitral annular septal E/e': 15.4. Wall Motion: All scored segments are normal. RIGHT VENTRICLE The right ventricle is normal in size. Right ventricular systolic function is normal. RV systolic tissue Doppler velocity is 12.1 cm/s. Tricuspid annular displacement is 2.4 cm. Estimated right ventricular systolic pressure is 24 mmHg plus right atrial pressure. Estimated right atrial pressure is not included as the IVC was not seen. LEFT ATRIUM The left atrial cavity is normal in size. RIGHT ATRIUM The right atrial cavity is normal in size. Inferior Vena Cava: The inferior vena cava appears normal measuring 1.7 cm. MITRAL VALVE [place] mitral valve. There is trace mitral valve regurgitation. There is no thickening. The peak mitral valve gradient is 8 mmHg. The mean mitral valve gradient is 3 mmHg. The pressure half time is 45 msec. The peak mitral E/A ratio is 0.59. The average mitral E/e' ratio is 16.7. The mitral flow deceleration time is 156 msec. TRICUSPID VALVE [place] tricuspid valve. There is trace (trace - 1+) tricuspid valve regurgitation. There is no thickening. AORTIC VALVE There is no aortic valve regurgitation. Tricuspid aortic valve. There is no thickening. The peak gradient is 12 mmHg (peak velocity = 176.0 cm/s). The mean gradient is 7 mmHg. The LVOT mean velocity is 82.0 cm/s. The LVOT diameter is 2.1 cm. The aortic VTI is 30.8 cm. The mean velocity in the aortic valve is 129.0 cm/s. The dimensionless valve index is 0.72. AV area is 2.51 cm (1.03 cm /m ) by continuity, VTI. The LVOT stroke volume index is 34 ml/m . PULMONIC VALVE There is trace pulmonic valve regurgitation. There is no thickening. The peak gradient is 6 mmHg. AORTA The visualized aorta is normal in size. Measurements - Sinus: 2.7 cm. Sinotubular junction 2.2 cm. Mid ascending aorta 3.0 cm. CONCLUSIONS: - Exam indication: dyspnea - The left ventricle is normal in size. Left ventricular systolic function is normal. EF = 57 5% (2D 4-ch.) - The right ventricle is normal in size. Right ventricular systolic function is normal. Addendum 1. See comments above 2. Suboptimal study 3. Normal right and left ventricular systolic function left ejection fraction greater than equal to 65% 4. Stage I left good diastolic abnormality 5. Trivial mitral regurgitation - The patient has not had a prior CC echocardiographic exam for comparison. * * * Final * * * [facility] [employer] : [id number] Normal [facility] 25(OH)D3 SerPl-[facility] Healthon 2022 25-hydroxyvitamin D3 [Mass/Vol] 21.9 ng/mL Low 30.0-100.0 [facility] Comment on above: Order Comment: Speci men Type: BLOOD SPECIMEN Ordering Facility: [facility] Address: [address] [place] [address] Result Comment: Defi ciencyLess than 20 ng/mL Aztruoztubxbc33 - Less than 30 ng/mL Vkkhrduimad07 - 100 ng/mL Performed By: #### 2 4323-8, 3016-3, 1988- #### [facility] CLIA [id number] [address] [place] [address] #### 83572-4 #### [facility] CLIA [id number] [address] [place] [address] LAB CLIA [id number] [address] [employer] [address] [place] #### [address]92[address]-0 #### [facility] CLIA [id number] [address] OF [facility] CBC W Auto Differential pane l (Bld)on 06-13-2023 Basophils (Bld) [#/Vol] 0.04 10*3/uL Normal <0.11 [facility] Comment on above: Order Comment: Speci men Type: BLOOD SPECIMEN Ordering Facility: [facility] Address: [address] [place] [address] Performed By: #### 5 7021-8 #### [facility] CLIA [id number] [address] [facility] [place] [facility] [place] [address] [place] [address] [place] Basophils/100 WBC (Bld) 0.6 % Normal [facility] Comment on above: Order Comment: Speci men Type: BLOOD SPECIMEN Ordering Facility: [facility] Address: [address] [place] [phone] Performed By: #### 5 7021-8 #### [facility] CLIA [id number] [address] [facility] [address] [place] [address] Differential cell count method Nom (Bld) Auto Normal [facility] Comment on above: Order Comment: Speci men Type: BLOOD SPECIMEN Ordering Facility: [facility] Address: [address] [place] [address] Performed By: #### 5 7021-8 #### [facility] CLIA [id number] [address] [facility] [employer] [place] [address] [place] [address] [place] Eosinophils (Bld) [#/Vol] 0.41 10*3/uL Normal <0.46 [facility] Comment on above: Order Comment: Speci men Type: BLOOD SPECIMEN Ordering Facility: [facility] Address: [address] [place] [address] Performed By: #### 5 7021-8 #### [facility] CLIA [id number] [address] [facility] [address] [place] [phone] [place] [address] [place] [facility] Eosinophils/100 WBC (Bld) 5.8 % Normal [facility] Comment on above: Order Comment: Speci men Type: BLOOD SPECIMEN Ordering Facility: [facility] Address: [address] [place] [phone] Performed By: #### 5 7021-8 #### [facility] CLIA [id number] [address] [facility] [address] [place] [phone] [place] [address] [place] Erythrocyte distribution width (RBC) [Ratio] 13.7 % Normal 11.5-15.0 [facility] Comment on above: Order Comment: Speci men Type: BLOOD SPECIMEN Ordering Facility: [facility] Address: [address] [place] [phone] Performed By: #### 5 7021-8 #### [facility] CLIA [id number] [address] [facility] [address] [place] [address] [facility] [place] Hematocrit (Bld) [Volume fraction] 40.0 % Normal 36.0-46.0 [facility] Comment on above: Order Comment: Speci men Type: BLOOD SPECIMEN Ordering Facility: [facility] Address: [address] [place], [place] [address] [address] Performed By: #### 5 7021-8 #### [facility] [place] [id number] 7337 [facility] [address] [place] [address] [place] Hemoglobin (Bld) [Mass/Vol] 13.6 g/dL Normal 11.5-15.5 [facility] Comment on above: Order Comment: Speci men Type: BLOOD SPECIMEN Ordering Facility: [facility] Address: [address] [place], [place] [address] [address] Performed By: #### 5 7021-8 #### [facility] [id number] 7337 [facility] [address] [place] [address] [place] Immature granulocytes (Bld) [#/Vol] 0.08 10*3/uL Normal <0.10 [facility] Comment on above: Order Comment: Speci men Type: BLOOD SPECIMEN Ordering Facility: [facility] Address: [address] [place] [phone] Performed By: #### 5 7021-8 #### [facility] [id number] 7337 [facility] [address] [place] [address] [place] Immature granulocytes/100 WBC (Bld) 1.1 % Normal [facility] Comment on above: Order Comment: Speci men Type: BLOOD SPECIMEN Ordering Facility: [facility] Address: [address] [place] [address] [place] [address] Performed By: #### 5 7021-8 #### [facility] [id number] 7337 [facility] [address] [place] [address] [place] Lymphocytes (Bld) [#/Vol] 1.28 10*3/uL Normal 1.00-4.00 [facility] Comment on above: Order Comment: Speci men Type: BLOOD SPECIMEN Ordering Facility: [facility] Address: [address] [place] [address] Performed By: #### 5 7021-8 #### [facility] IA [id number] [address] [facility] [place] [address] [place] [address] [facility] Lymphocytes/100 WBC (Bld) 18.2 % Normal [facility] Comment on above: Order Comment: Speci men Type: BLOOD SPECIMEN Ordering Facility: [facility] Address: [address] [place] [phone] Performed By: #### 5 7021-8 #### [facility] [id number] 7[address] [facility] [address] [place] [phone] [place] [address] [place] MCH (RBC) [Entitic mass] 32.7 pg Normal 26.0-34.0 [facility] Comment on above: Order Comment: Speci men Type: BLOOD SPECIMEN Ordering Facility: [facility] Address: [address] [place] [phone] Performed By: #### 5 7021-8 #### [facility] [id number] 7337 [facility] [address] [place] [address] [place] MCHC (RBC) [Mass/Vol] 34.0 g/dL Normal 30.5-36.0 [facility] Comment on above: Order Comment: Speci men Type: BLOOD SPECIMEN Ordering Facility: [facility] Address: [address] [place] [address] Performed By: #### 5 7021-8 #### [facility] [id number] 7[address] [facility] [address] [place] [address] [facility] MCV (RBC) [Entitic vol] 96.2 fL Normal 80.0-100.0 [facility] Comment on above: Order Comment: Speci men Type: BLOOD SPECIMEN Ordering Facility: [facility] Address: [address] [place] [phone] Performed By: #### 5 7021-8 #### [facility] [id number] 7[address] [facility] [address] [place] [address] [place] Monocytes (Bld) [#/Vol] 0.83 10*3/uL Normal <0.87 [facility] Comment on above: Order Comment: Speci men Type: BLOOD SPECIMEN Ordering Facility: [facility] Address: [address] [place] [address] Performed By: #### 5 7021-8 #### [facility] CLIA [id number] [address] [facility] [address] [place] [address] [place] Monocytes/100 WBC (Bld) 11.8 % Normal [facility] Comment on above: Order Comment: Speci men Type: BLOOD SPECIMEN Ordering Facility: [facility] Address: [address] [place] [phone] Performed By: #### 5 7021-8 #### [facility] CLIA [id number] [address] [facility] [address] [place] [address] [place] Neutrophils (Bld) [#/Vol] 4.40 10*3/uL Normal 1.45-7.50 [facility] Comment on above: Order Comment: Speci men Type: BLOOD SPECIMEN Ordering Facility: [facility] Address: [address] [place] [address] Performed By: #### 5 7021-8 #### [facility] CLIA [id number] [address] [facility] [address] [place] [address] [place] Neutrophils/100 WBC (Bld) 62.5 % Normal [facility] Comment on above: Order Comment: Speci men Type: BLOOD SPECIMEN Ordering Facility: [facility] Address: [address] [place] [phone] Performed By: #### 5 7021-8 #### [facility] CLIA [id number] 7337 [facility] [address] [place] [address] [place] Nucleated RBC (Bld) [#/Vol] 10*3/uL Normal <0.01 [facility] Comment on above: Order Comment: Speci men Type: BLOOD SPECIMEN [facility] Address: [address] [place], [place] [address] [address] Performed By: #### 5 7021-8 #### [facility] CLIA [id number] 7337 [facility] [address] [place] [address] [place] [facility] Nucleated RBC/100 WBC (Bld) [Ratio] 0.0 /100 WBC Normal [facility] Comment on above: Order Comment: Speci men Type: BLOOD SPECIMEN [facility] [employer] [facility] Address: [address] [place] [address] Performed By: #### 5 7021-8 #### [facility] CLIA [id number] [address] [place] [address] [place] [address] [place] Platelet mean volume (Bld) [Entitic vol] 9.1 fL Normal 9.0-12.7 [facility] Comment on above: Order Comment: Speci men Type: BLOOD SPECIMEN Ordering Facility: [facility] Address: [address] [place] [phone] Performed By: #### 5 7021-8 #### [facility] [id number] [address] [place] [address] [place] [address] [place] Platelets (Bld) [#/Vol] 181 10*3/uL Normal 150-400 [facility] Comment on above: Order Comment: Speci men Type: BLOOD SPECIMEN [facility]ing [facility]: [place] [employer] [facility] Address: [address] [place] [phone] Performed By: #### 5 7021-8 #### [facility] CLIA [id number] 7337 [facility] [address] [place] [address] [place] RBC (Bld) [#/Vol] 4.16 10*6/uL Normal 3.90-5.20 [facility] Comment on above: Order Comment: Speci men Type: BLOOD SPECIMEN Ordering Facility: [facility] Address: [address] [place] [phone] Performed By: #### 5 7021-8 #### [facility] CLIA [id number] [address] [facility] [address] [place] [address] [place] WBC (Bld) [#/Vol] 7.04 10*3/uL Normal 3.70-11.00 [facility] Comment on above: Order Comment: Brenda garcia Type: BLOOD SPECIMEN Ordering Facility: [facility] Address: [address] [place] [phone] Performed By: #### 5 7021-8 #### [facility] CLIA [id number] 7[address] [facility] [address] [place] [address] [place] Cholesterol in LDL Direct as say [Mass/Vol]on 06-13-2023 Cholesterol in LDL [Mass/Vol] 35 mg/dL Normal <100 [facility] Comment on above: Order Comment: Brenda garcia Type: BLOOD SPECIMEN Ordering Facility: [facility] Address: [address] [place] [phone] Result Comment: <100 mg/dL, Optimal 100-129 mg/dL, Near optimal/above optimal 130-159 mg/dL, Borderline high 160-189 mg/dL, High >189 mg/dL, Very high Secondary prevention optimal LDL Cholesterol levels are recommended to be < 70 mg/dL Performed By: #### 2 4323-8, 3016-3, 1988-12 #### [facility] CLIA [id number] [address] [place] [address] [place] #### 29549-2 #### [facility] CLIA [id number] [address] [place] [address] [place] [facility] CLIA [id number] 7337 [employer] [facility] [address] [place] [address] [place] #### 59392-3 #### [facility] CLIA [id number] [address] [address] [place] Comprehensive metabolic 2000 panelon 06-13-2023 Albumin [Mass/Vol] 3.6 g/dL Normal 3.2-5.0 [facility] Comment on above: Order Comment: Speci men Type: BLOOD SPECIMEN Ordering Facility: [facility] Address: [address] [place] [phone] Performed By: #### 2 4323-8, 3015-12, 1988-12 #### [facility] CLIA [id number] [address] [place] [address] [place] #### 39817-7 #### [facility] CLIA [id number] [address] [place], [place] [address] [place] [facility] CLIA [id number] [address] [place] #### 223[address]-3 #### [facility] CLIA [id number] [address] [place] [address] [place] ALP [Catalytic activity/Vol] 58 U/L Normal 45-117 [facility] Comment on above: Order Comment: Speci men Type: BLOOD SPECIMEN Ordering Facility: [facility] Address: [address] [place] [address] Performed By: #### 2 4323-8, 3015-12, 1988-12 #### [facility] CLIA [id number] [address] [place], [place] [address] [place] #### 77598-7 #### [facility] CLIA [id number] [address] [place], [place] [address] [place] [facility] CLIA [id number] [address] [facility] [place] [address] [place] #### 55395-4 #### [facility] CLIA [id number] [address] [place], [place] [address] [place] ALT [Catalytic activity/Vol] 31 U/L Normal 13-61 [facility] Comment on above: Order Comment: Speci men Type: BLOOD SPECIMEN Ordering Facility: [facility] Address: [address] [place] [address] Result Comment: Resu lts may be falsely depressed after the administration of Sulfasalazine and/or Sulfapyridine. Performed By: #### 2 4323-8, 3015-12, 1988-12 #### [facility] CLIA [id number] [address] [place] [address] [place] #### 45967-4 #### [facility] CLIA [id number] [address] [place], [place] [address] [place] [facility] CLIA [id number] [address] [place] #### 84961-5 #### [facility] CLIA [id number] [address] [place] [address] STATES [place] [facility] Anion gap [Moles/Vol] 12 mmol/L Normal 5-16 [facility] Comment on above: Order Comment: Speci men Type: BLOOD SPECIMEN Ordering Facility: [facility] Address: [address] [place] [address] Performed By: #### 2 4323-8, 3015-12, 1988-12 #### [facility] CLIA [id number] [address] [place] [address] [place] #### 21491-9 #### [facility] CLIA [id number] [address] [place], [place] [address] [place] [facility] CLIA [id number] [address] [facility] [address] [place] #### 95254-1 #### [facility] CLIA [id number] [address] [place] [address] [place] AST [Catalytic activity/Vol] 19 U/L Normal 8-34 [facility] Comment on above: Order Comment: Speci radha Type: BLOOD SPECIMEN Ordering Facility: [facility] Address: [address] [place] [phone] Result Comment: Resu lts may be falsely depressed after the administration of Sulfasalazine and/or Sulfapyridine. Performed By: #### 2 4323-8, 3016-3, 1988-12 #### [facility] CLIA [id number] [address] [place] [address] [place] #### 73243-3 #### [facility] CLIA [id number] [address] [place], [place] [address] [place] [facility] CLIA [id number] [address] [place] [address] [place] #### 35026-3 #### [facility] CLIA [id number] [address] [place] Bilirubin [Mass/Vol] 0.3 mg/dL Normal 0.2-1.[address] [facility] Comment on above: Order Comment: Brenda garcia Type: BLOOD SPECIMEN Ordering Facility: [facility] Address: [address] [place] [phone] Performed By: #### 2 4323-8, 3015-3, 1988-12 #### [facility] CLIA [id number] [address] [place] [address] [place] #### 39153-2 #### [facility] CLIA [id number] [address] [place], [place] [address] [place] [facility] CLIA [id number] [address] [place] [address] [place] #### 33262-2 #### [facility] CLIA [id number] [address] [place] [address] [place] Calcium [Mass/Vol] 10.2 mg/dL Normal 8.5-10.5 [facility] Comment on above: Order Comment: Speci men Type: BLOOD SPECIMEN Ordering Facility: [facility] Address: [address] [place] [phone] Performed By: #### 2 4323-8, 3015-12, 1988-12 #### [facility] CLIA [id number] [address] [place] [address] [place] #### 11423-3 #### [facility] CLIA [id number] [address] [place] [address] [place] [facility] CLIA [id number] [address] [place] [address] [place] #### 14551-9 #### [facility] CLIA [id number] [address] [place] [address] [place] Chloride [Moles/Vol] 102 mmol/L Normal 98-[address] [facility] Comment on above: Order Comment: Speci men Type: BLOOD SPECIMEN Ordering Facility: [facility] Address: [address] [place] [phone] Performed By: #### 2 4323-8, 3015-12, 1988-12 #### [facility] CLIA [id number] [address] [place] [address] [place] #### 07614-4 #### [facility] CLIA [id number] [address] [place], [place] [address] [place] [facility] CLIA [id number] [address] [place] [address] [place] #### 37021-3 #### [facility] CLIA [id number] [address] [place] [address] [place] CO2 [Moles/Vol] 27 mmol/L Normal 21-32 [facility] Comment on above: Order Comment: Speci men Type: BLOOD SPECIMEN Ordering Facility: [facility] Address: [address] [place], [place] [address] [address] Performed By: #### 2 4323-8, 3015-12, 1988-12 #### [facility] CLIA [id number] [address] [place], [place] [address] [place] #### 56173-0 #### [facility] CLIA [id number] [address] [place], [place] [address] [place] [facility] CLIA [id number] [address] [place] [address] [place] #### 59669-0 #### [facility] CLIA [id number] [address] [place] [address] [place] Creatinine [Mass/Vol] 1.07 mg/dL High 0.51-0.95 [facility] Comment on above: Order Comment: Speci men Type: BLOOD SPECIMEN Ordering Facility: [facility] Address: [address] [place] [phone] Result Comment: Jenifer ents receiving either N-Acetylcysteine (NAC) or Metamizole prior to venipuncture, may have falsely depressed results. Performed By: #### 2 4323-8, 3015-12, 1988-12 #### [facility] CLIA [id number] [address] [place] [address] [place] #### 53554-9 #### [facility] CLIA [id number] [address] [place], [place] [address] [place] [facility] CLIA [id number] [address] [place] [address] [place] #### 86713-7 #### [facility] CLIA [id number] [facility] [place] [address] [place] Creatinine and Glomerular filtration rate.predicted panel (S/P/Bld) 54 mL/min/1.73m??? Low >=60 [facility] Comment on above: Order Comment: Brenda garcia Type: BLOOD SPECIMEN [facility] Address: [address] [place], [place] [address] [address] Result Comment: Gabriella mated Glomerular Filtration Rate (eGFR) is calculated using the 2020 CKD-EPI creatinine equation. This equation utilizes serum creatinine, sex, and age as parameters. The creatinine assay has traceable calibration to isotope dilution-mass spectrometry. Refer to KDIGO guidelines for clinical interpretation. In patients with unstable renal function, e.g. those with acute kidney injury, the eGFR may not accurately reflect actual GFR. Performed By: #### 2 4323-8, 3016-3, 1988-12 #### [facility] CLIA [id number] [address] [place] [address] [place] #### 57644-4 #### [facility] CLIA [id number] [address] [place] [address] [place] [facility] CLIA [id number] [address]337 [facility] [address] [place] [address] [place] #### 95649-5 #### [facility] CLIA [id number] [address] [address] [place] Glucose [Mass/Vol] 190 mg/dL High 70-100 [facility] Comment on above: Order Comment: Brenda garcia Type: BLOOD SPECIMEN [facility] Address: [address] [place] [phone] Result Comment: The [place] Diabetes Association (ADA) provides guidance for cutoff values for fasting glucose and random glucose. The ADA defines fasting as no caloric intake for at least 8 hours. Fasting plasma glucose results between 100 to 125 mg/dL indicate increased risk for diabetes (prediabetes). Fasting plasma glucose results greater than or equal to 126 mg/dL meet the criteria for diagnosis of diabetes. In the absence of unequivocal hyperglycemia, results should be confirmed by repeat testing. In a patient with classic symptoms of hyperglycemia or hyperglycemic crisis, random plasma glucose results greater than or equal to 200 mg/dL meet the criteria for diagnosis of diabetes. Reference: Standards of Medical Care in Diabetes 2016, [place] Diabetes Association. Diabetes Care. 2016.39(Suppl 1). Results may be falsely elevated after the administration of Sulfapyridine. Results may be falsely depressed after the administration of Sulfasalazine. Performed By: #### 2 432-8, 3015-12, 1988-12 #### [facility] CLIA [id number] [address] [place] [address] [place] #### 60152-0 #### [facility] CLIA [id number] [address] [place], [place] [address] [place] [facility] CLIA [id number] [address] [place] [address] [place] #### 22772-9 #### [facility] CLIA [id number] [address] [place] [address] [place] Potassium [Moles/Vol] 3.9 mmol/L Normal 3.5-5.1 [facility] Comment on above: Order Comment: Speci men Type: BLOOD SPECIMEN Ordering Facility: [facility] Address: [address] [place] [phone] Performed By: #### 2 4328, 3015-12, 1988-12 #### [facility] CLIA [id number] [address] [place] [address] [place] #### 75581-2 #### [facility] CLIA [id number] [address] [place], [place] [address] [place] [facility] CLIA [id number] [address] [place] [address] [place] #### 13050-4 #### [facility] CLIA [id number] [address] [place] [address] [place] Protein [Mass/Vol] 6.6 g/dL Normal 6.0-8.5 [facility] Comment on above: Order Comment: Speci men Type: BLOOD SPECIMEN Ordering Facility: [facility] Address: [address] [place] [address] Performed By: #### 2 4323-8, 3015-12, 1988-12 #### [facility] CLIA [id number] [address] [place] [address] [place] #### 63963-5 #### [facility] CLIA [id number] [address] [place] [address] [place] [facility] CLIA [id number] [address] [place] [address] [place] #### 62818-4 #### [facility] CLIA [id number] [address] [place] [address] [place] Sodium [Moles/Vol] 141 mmol/L Normal 136-145 [facility] Comment on above: Order Comment: Speci men Type: BLOOD SPECIMEN Ordering Facility: [facility] Address: [address] [place] [phone] Performed By: #### 2 4323-8, 3015-12, 1988-12 #### [facility] CLIA [id number] [address] [place], [place] [address] [place] #### 68654-0 #### [facility] CLIA [id number] [address] [place] [address] [place] [facility] CLIA [id number] [address] [place] [address] [place] #### 52209-2 #### [facility] CLIA [id number] [address] [place] [id number] [place] Urea nitrogen [Mass/Vol] 16 mg/dL Normal 7-26 [facility] Comment on above: Order Comment: Brenda garcia Type: BLOOD SPECIMEN Ordering Facility: [facility] Address: [address] [place] [address] [address] Performed By: #### 2 4323-8, 3016-3, 1988- #### [facility] CLIA [id number] [address] [place] [address] [place] #### 21609-5 #### [facility] CLIA [id number] [address] [place] [address] [place] [facility] CLIA [id number] [address]337 [facility] [address] [place] [address] [place] #### 11977-2 #### [facility] CLIA [id number] 9500 [facility] [address] [address] [place] HbA1c (Bld)on 06-13-2023 Average glucose Estimated from glycated hemoglobin (Bld) [Mass/Vol] 171 mg/dL Normal [facility] Comment on above: Order Comment: Brenda garcia Type: BLOOD SPECIMEN Ordering Facility: [facility] Address: [address] [place] [phone] Result Comment: eAG: (Estimated average glucose) is a calculated value from HgbA1c and is congressional representative of the average blood glucose level in the last 2-3 month period. Performed By: #### 5 5454-3 #### [facility] CLIA [id number] [address] [place], [place] [address] [place] HbA1c (Bld) [Mass fraction] 7.6 % High 4.3-6.0 [facility] Comment on above: Order Comment: Brenda garcia Type: BLOOD SPECIMEN Ordering Facility: [facility] Address: [address] [place], [place] [address] [address] Result Comment: Amer ican Diabetes Association guidelines indicate that patients with HgbA1c in the range 5.7-6.4% are at increased risk for development of diabetes, and intervention by lifestyle modification may be beneficial. HgbA1c greater or equal to 6.5% is considered diagnostic of diabetes. Performed By: #### 5 5454-3 #### [facility] CLIA [id number] [address] [place] [address] Lipid 1995 Pnl SerPlon 06-13 Cholesterol in VLDL [Mass/Vol] Normal [facility] Comment on above: Order Comment: Speci men Type: BLOOD SPECIMEN Ordering Facility: [facility] Address: [address] [place] [phone] Result Comment: Unab le to calculate due to elevated Triglycerides. Unable to calculate due to increased Triglycerides. See LDL-Chol, Direct. Performed By: #### 2 4323-8, 3015-12, 1988-12 #### [facility] CLIA [id number] [address] [place] [address] #### 78021-7 #### [facility] CLIA [id number] [address] [place] [address] LAB CLIA [id number] 7337 [facility] [address] [place] [id number] [place] [address] [place] #### 65866-0 #### [facility] CLIA [id number] [address] [address] [place] Result Comment: Test not indicated. Lipid 1995 panelon 3 Cholesterol [Mass/Vol] 204 mg/dL High 0-199 [facility] Comment on above: Order Comment: Speci men Type: BLOOD SPECIMEN [facility]ing Facility: [facility] Address: [address] [place] [address] Result Comment: <200 mg/dL, Desirable 200-239 mg/dL, Borderline high >239 mg/dL, High Performed By: #### 2 4323-8, 3015-12, 1988-12 #### [facility] CLIA [id number] [address] [place] [address] #### 93670-7 #### [facility] CLIA [id number] [address] [place] [address] [place] [facility] CLIA [id number] [address] [address] [place] #### 85068-3 #### [facility] CLIA [id number] [address] [address] [place] Cholesterol in HDL [Mass/Vol] 25 mg/dL Low >40 [facility] Comment on above: Order Comment: Speci men Type: BLOOD SPECIMEN Ordering Facility: [facility] Address: [address] [place] [address] Result Comment: 40-5 9 mg/dL, Acceptable >59 mg/dL, High: Negative risk factor for coronary heart disease <40 mg/dL, Low: Positive risk factor for coronary heart disease Performed By: #### 2 4323-8, 3, 1988-12 #### [facility] CLIA [id number] [address] [place] [address] [place] #### 53407-8 #### [facility] CLIA [id number] [address] [place] [address] [place] [facility] CLIA [id number] [address] [address] [place] #### 02162-7 #### [facility] CLIA [id number] [facility] [address] [address] [place] Cholesterol in LDL [Mass/Vol] Normal [facility] Comment on above: Order Comment: Speci men Type: BLOOD SPECIMEN Ordering Facility: [facility] Address: [address] [place] [phone] Result Comment: Unab le to calculate due to elevated Triglycerides. Unable to calculate due to increased Triglycerides. See LDL-Chol, Direct. Performed By: #### 2 4323-8, 3015-3, 1988-12 #### [facility] CLIA [id number] [address] [place] [address] [place] #### 15198-0 #### [facility] CLIA [id number] [address] [place] [address] [place] [facility] CLIA [id number] 7337 [facility] [address] [place] [address] [place] #### 07404-3 #### [facility] CLIA [id number] [address] [facility] [place] [address] [place] Cholesterol in LDL/Cholesterol in HDL [Mass ratio] Normal [facility] Comment on above: Order Comment: Speci men Type: BLOOD SPECIMEN Ordering Facility: [facility] Address: [address] [place] [address] Result Comment: Unab le to calculate due to elevated Triglycerides. Reference: 1. National Cholesterol Education Program ATP III Guideline At-A-Glance Quick Desk Reference: National Heart, Lung, and Blood Glen. National Institutes of Health. 2001: NIH Publication No. 01-3305. 2. An International Atherosclerosis Society position paper: global recommendations for the management of dyslipidemia: executive summary, Atherosclerosis. 2014: 232(2):410-413. Performed By: #### 2 4323-8, 3016-3, 1988-12 #### [facility] CLIA [id number] [address] [place] [address] [place] #### 66733-1 #### [facility] CLIA [id number] [address] [place] [address] [place] [facility] CLIA [id number] 7[address] [facility] [address] [place] [address] [place] #### 92685-4 #### [facility] CLIA [id number] 9500 [facility] [address] [address] [place] Cholesterol non HDL [Mass/Vol] 179 mg/dL High <130 [facility] Comment on above: Order Comment: Speci men Type: BLOOD SPECIMEN [facility] Address: [address] [place], [place] [address] [place] [address] Result Comment: <130 mg/dL, Optimal 130-159 mg/dL, Near optimal/above optimal 160-189 mg/dL, Borderline high 190-219 mg/dL, High >219 mg/dL, Very high Secondary prevention optimal non HDL Cholesterol levels are recommended to be <100 mg/dL Performed By: #### 2 4323-8, 3015-3, 1988-12 #### [facility] CLIA [id number] [address] [place] [address] [place] #### 48797-1 #### [facility] CLIA [id number] [address] [place], [place] [address] [place] [facility] CLIA [id number] [address] [place] #### 14977-7 #### [facility] CLIA [id number] [address] [place] [address] [place] Cholesterol.total/Choles terol in HDL [Mass ratio] 8.16 {ratio} High <5.10 [facility] Comment on above: Order Comment: Brenda men Type: BLOOD SPECIMEN [facility] Address: [address] [place], [place] [address] [address] Performed By: #### 2 4323-8, 3, 1988-12 #### [facility] CLIA [id number] [address] [place] [address] [place] #### 21482-4 #### [facility] CLIA [id number] [address] [place], [place] [address] [place] [facility] CLIA [id number] [address] [place] #### 94287-5 #### [facility] CLIA [id number] [address] [place] [address] [place] FASTING TIME 14 hrs Normal [facility] Comment on above: Order Comment: Brenda garcia Type: BLOOD SPECIMEN [facility]ing Facility: [facility] Address: [address] [place] [phone] Performed By: #### 2 4323-8, 3015-12, 1988-12 #### [facility] CLIA [id number] [address] [place] [address] [place] #### 12120-0 #### [facility] CLIA [id number] [address] [place] [address] STATES [facility] CLIA [id number] 7[address] [facility] [address] [place] #### 80136-0 #### [facility] CLIA [id number] [address] [place] [address] [place] Triglyceride [Mass/Vol] mg/dL High 30-149 [facility] Comment on above: Order Comment: Brenda garcia Type: BLOOD SPECIMEN Ordering Facility: [facility] Address: [address] [place] [phone] Result Comment: <150 mg/dL, Normal 150-199 mg/dL, Borderline high 200-499 mg/dL, High >499 mg/dL, Very high Patients receiving either N-Acetylcysteine (NAC) or Metamizole prior to venipuncture, may have falsely depressed results. Performed By: #### 2 4323-8, 3015-12, 1988-12 #### [facility] CLIA [id number] [address] [place] [address] [place] #### [id number] #### [facility] CLIA [id number] [address] [place] [address] [place] [facility] CLIA [id number] [address] [place] [place] [address] [place] #### [id number] #### [facility] CLIA [id number] [address] [id number] [place] TSH SerPl-aCncon 06-13-2023 TSH Qn 4.316 m[IU]/L High 0.358-3.74 0 [facility] Comment on above: Order Comment: Speci men Type: BLOOD SPECIMEN Ordering Facility: [facility] Address: [address] [place] [phone] Result Comment: 3rd generation ultra sensitive TSH. Performed By: #### 2 4323-8, 3016-3, 1988-12 #### [facility] CLIA [id number] [address] [place] [address] #### [id number] #### [facility] CLIA [id number] [address] [place] [address] LAB CLIA [id number] [address] [facility] [address] [place] [address] #### [id number] #### [facility] CLIA [id number] [address] [place], [place] [address] [place] [facility] SMEAR REVIEWon 11-13-[address] [facility] Comment on above: Result Comment: Leuk ocytosis with absolute eosinophilia. Possible causes include parasites, allergies, asthma, malignancies, and autoimmune disorders. Mild thrombocytopenia. Consider ITP, infection, autoimmune diseases, malignancy and therapy effect. Reviewed by Julian Kaplan D.O., Pathologist. 11/13/21 [address]54 Performed By: #### L 500.03894, L500.59207, L500.11795, L550.87810, L500.79275 #### [facility] [address] [place] [address] CBC W/DIFFon 11-12-2021 BASO ABS 0.12 K/CU MM Normal 0-0.2 [facility] Comment on above: Performed By: #### L 500.13652, L500.80904, L500.50642, L550.80486, L500.13830 #### [facility] [address] [place] [address] Basophils/100 WBC (Bld) 1.0 % Normal 0-2 [facility] Comment on above: Performed By: #### L 500.87643, L500.53156, L500.74361, L550.97092, L500.88574 #### [facility] [address] [place] [address] EOS ABS 5.22 K/CU MM High 0-0.5 [facility] Comment on above: Performed By: #### L 500.80235, L500.66810, L500.75629, L550.04453, L500.64500 #### [facility] [address] [place] [address] Eosinophils/100 WBC (Bld) 45.0 % High 0-5 [facility] Comment on above: Performed By: #### L 500.26504, L500.19215, L500.50845, L550.93436, L500.45898 #### [facility] [address] [place] [address] LYMPH ABS 1.62 K/CU MM Normal 0.9-4.4 [facility] Comment on above: Performed By: #### L 500.82939, L500.69645, L500.40900, L550.04076, L500.03732 #### [facility] [address] [place] [address] Lymphocytes/100 WBC (Bld) 14.0 % Low 20-40 [facility] Comment on above: Performed By: #### L 500.99678, L500.62311, L500.10289, L550.87208, L500.06046 #### [facility] [address] [place] [address] MONO ABS 0.23 K/CU MM Normal 0.1-1.1 [facility] Comment on above: Performed By: #### L 500.96070, L500.18994, L500.91716, L550.68791, L500.49206 #### [facility] [address] [place] [address] Monocytes/100 WBC (Bld) 2.0 % Normal 2-10 [facility] Comment on above: Performed By: #### L 500.00634, L500.84179, L500.76293, L550.59448, L500.18224 #### [facility] [address] [place] [address] NEUTROPHIL ABS 4.41 K/CU MM Normal 2.0-8.3 [facility] Comment on above: Performed By: #### L 500.56885, L500.48493, L500.21709, L550.87406, L500.88406 #### [facility] [address] [place] [address] Neutrophils/100 WBC (Bld) 38.0 % Low 45-75 [facility] Comment on above: Performed By: #### L 500.39160, L500.85064, L500.29143, L550.42599, L500.08439 #### [facility] [address] [place] [address] PLT EST SLT DECREASED Normal [facility] Comment on above: Performed By: #### L 500.70606, L500.59547, L500.96674, L550.08894, L500.53045 #### [facility] [address] [place] [address] POIK 1+ Normal [facility] Comment on above: Performed By: #### L 500.21983, L500.33734, L500.40977, L550.08055, L500.22458 #### [facility] [address] [place] [address] POLY 1+ Normal [facility] Comment on above: Performed By: #### L 500.61748, L500.94924, L500.76721, L550.46228, L500.61603 #### [facility] [address] [place] [address] Erythrocyte distribution width (RBC) [Ratio] 14.5 % Normal 11-14.5 [facility] Comment on above: Performed By: #### L 500.34186, L500.14013, L500.72381, L550.42101, L500.53936 #### [facility] [address] [place] [address] Hematocrit (Bld) [Volume fraction] 39.2 % Normal 35.0-47.0 [facility] Comment on above: Performed By: #### L 500.11957, L500.71538, L500.56368, L550.71429, L500.93430 #### [facility] [address] [place] [address] Hemoglobin (Bld) [Mass/Vol] 12.9 g/dL Normal 11.5-15.5 [facility] Comment on above: Performed By: #### L 500.87617, L500.28084, L500.24657, L550.29442, L500.72466 #### [facility] [address] [place] [address] MCHC (RBC) [Mass/Vol] 32.9 g/dL Normal 32.0-36.0 [facility] Comment on above: Performed By: #### L 500.31448, L500.00912, L500.87995, L550.30989, L500.91550 #### [facility] [address] [place] [address] MCV (RBC) [Entitic vol] 96.1 fL Normal 80.0-99.0 M [facility] Comment on above: Performed By: #### L 500.27951, L500.11552, L500.37146, L550.34295, L500.03658 #### [facility] [address] [place] [address] Nucleated RBC/100 WBC (Bld) [Ratio] 0.0 % Normal Less than 1 [facility] Comment on above: Performed By: #### L 500.85726, L500.00467, L500.35304, L550.50438, L500.03173 #### [facility] [address] [place] [address] Platelet mean volume (Bld) [Entitic vol] 9.7 fL Normal 9.4-12.4 [facility] Comment on above: Performed By: #### L 500.64976, L500.77588, L500.49755, L550.89691, L500.32418 #### [facility] [address] [place] [address] PLT 143 K/CU MM Low 150-450 [facility] Comment on above: Performed By: #### L 500.71885, L500.23995, L500.76238, L550.37187, L500.65912 #### [facility] [address] [place], [place] [address] RBC 4.08 M/CU MM Normal 3.90-5.30 [facility] Comment on above: Performed By: #### L 500.23593, L500.43872, L500.42992, L550.67458, L500.75255 #### [facility] [address] [place] [address] WBC 11.6 K/CUMM High 4.5-11.0 [facility] Comment on above: Performed By: #### L 500.80347, L500.04806, L500.78653, L550.36769, L500.28486 #### [facility] [address] [place] [address] CMPon 11-12-2021 Albumin [Mass/Vol] 3.9 g/dL Normal 3.2-5.0 [facility] Comment on above: Performed By: #### L 500.47688, L500.25327, L500.37924, L550.37962, L500.43522 #### [facility] [address] [place] [address] Albumin/Globulin [Mass ratio] 1.3 {ratio} Normal 0.8-2.0 [facility] Comment on above: Performed By: #### L 500.83771, L500.73928, L500.91332, L550.93821, L500.61458 #### [facility] [address] [place] [address] ALK PHOS 59 U/L Normal 45-117 [facility] Comment on above: Performed By: #### L 500.83785, L500.67748, L500.75828, L550.64689, L500.77616 #### [facility] [address] [place], [place] [address] ALT [Catalytic activity/Vol] 21 U/L Normal 13-61 [facility] Comment on above: Result Comment: RESU LTS MAY BE FALSELY DEPRESSED AFTER THE ADMINISTRATION OF SULFASALAZINE AND/OR SULFAPYRIDINE. Performed By: #### L 500.81083, L500.58289, L500.90608, L550.75816, L500.87615 #### [facility] [place] [address] Anion gap [Moles/Vol] 7 mmol/L Normal 5-16 [facility] Comment on above: Performed By: #### L 500.97500, L500.86002, L500.90679, L550.71987, L500.45547 #### [facility] [address] [place] [address] AST [Catalytic activity/Vol] 20 U/L Normal 8-34 [facility] Comment on above: Result Comment: RESU LTS MAY BE FALSELY DEPRESSED AFTER THE ADMINISTRATION OF SULFASALAZINE AND/OR SULFAPYRIDINE. Performed By: #### L 500.72956, L500.64129, L500.56454, L550.31243, L500.01719 #### [facility] [address] [place] [address] BILI TOTAL 0.30 MG/DL Normal 0.2-1.0 [facility] Comment on above: Performed By: #### L 500.92011, L500.56645, L500.18289, L550.20848, L500.19755 #### [facility] [place] [id number] Calcium [Mass/Vol] 10.3 mg/dL Normal 8.5-10.5 [facility] Comment on above: Result Comment: NOTE NEW NORMAL RANGE DUE TO REAGENT CHANGE Performed By: #### L 500.28890, L500.70574, L500.25288, L550.75081, L500.93980 #### [facility] [address] [place], [place] [address] Chloride [Moles/Vol] 104 mmol/L Normal 98-107 [facility] Comment on above: Performed By: #### L 500.68470, L500.90365, L500.86143, L550.80317, L500.26191 #### [facility] [place] [address] CO2 [Moles/Vol] 28.0 mmol/L Normal 21-32 [facility] Comment on above: Performed By: #### L 500.85998, L500.53162, L500.88900, L550.04614, L500.77791 #### [facility] [address] [place] [address] Creatinine [Mass/Vol] 1.15 mg/dL High 0.510- 0.[address] [facility] Comment on above: Result Comment: Jenifer ents receiving either N-Acetylcysteine (NAC) or Metamizole prior to venipuncture, may have falsely depressed results. Performed By: #### L 500.92976, L500.03916, L500.89328, L550.05685, L500.28824 #### [facility] [address] [place] [address] Globulin (S) [Mass/Vol] 3.0 g/dL Normal 2.2-4.2 M [facility] Comment on above: Performed By: #### L 500.34422, L500.87732, L500.50448, L550.48012, L500.73746 #### [facility] [address] [place] [address] Glucose [Mass/Vol] 149 mg/dL High 70-100 [facility] Comment on above: Result Comment: 70-1 00- Normal Fasting; 100-125 Impaired Fasting; greater than 126 on more than one result- Diabetes. ADA guidelines. Results may be falsely elevated after the administration of Sulfapyridine. Results may be falsely depressed after the administration of Sulfasalazine. Performed By: #### L 500.22008, L500.51274, L500.92400, L550.14692, L500.11872 #### [facility] [address] [place] [address] Potassium [Moles/Vol] 4.6 mmol/L Normal 3.5-5.1 [facility] Comment on above: Performed By: #### L 500.00430, L500.44340, L500.95787, L550.66238, L500.33359 #### [facility] [place] [address] Protein [Mass/Vol] 6.9 g/dL Normal 6.0-8.5 [facility] Comment on above: Performed By: #### L 500.21027, L500.05365, L500.22946, L550.73601, L500.75463 #### [facility] [address] [place] [address] Sodium [Moles/Vol] 139 mmol/L Normal 136-145 [facility] Comment on above: Performed By: #### L 500.15463, L500.62488, L500.33108, L550.24185, L500.60741 #### [facility] [address] [place] [address] Urea nitrogen [Mass/Vol] 24 mg/dL Normal 7-26 [facility] Comment on above: Performed By: #### L 500.43293, L500.97228, L500.16220, L550.09792, L500.42324 #### [facility] [address] [place], [place] [address] Urea nitrogen/Creatinine [Mass ratio] 21 mg/mg Normal 15-24 [facility] Comment on above: Performed By: #### L 500.56321, L500.58102, L500.54436, L550.92410, L500.71181 #### [facility] [address] [place] [address] GFR ESTon 11-12-2021 IF AMER [address] [facility] Comment on above: Performed By: #### L 500.80549, L500.47940, L500.80716, L550.77358, L500.04333 #### [facility] [address] [place], [place] [address] IF non-AFR AMER [address] [facility] Comment on above: Performed By: #### L 500.56055, L500.88510, L500.52216, L550.18557, L500.47481 #### [facility] [address] [place] [address] HGB A1C GLYCOHBon 11-12-2021 HbA1c (Bld) [Mass fraction] 7.0 % High 4.3-6.0 [facility] Comment on above: Performed By: #### L 500.03429, L500.37802, L500.16324, L550.66899, L500.63946 #### [facility] [address] [place] [address] LIPIDon 11-12-2021 CHOL 125 MG/dL Normal 0-199 [facility] Comment on above: Performed By: #### L 500.95309, L500.96739, L500.36364, L550.60328, L500.22217 #### [facility] [address] [place], [place] [address] Cholesterol in HDL [Mass/Vol] 32 mg/dL Low GREATER THAN 40 [facility] Comment on above: Result Comment: Jenifer ents receiving Metamizole prior to venipuncture, may have falsely depressed results. Performed By: #### L 500.72899, L500.00151, L500.68791, L550.49128, L500.63265 #### [facility] [address] [place] [address] Cholesterol in LDL [Mass/Vol] 48 mg/dL Normal [facility] Comment on above: Result Comment: ___C HOLESTEROL/HDL RATIO RISK___ CHD RISK = Total CHOL LDL HDL (CHOL/HDL) Recommended <200 <130 >40 <3.4 Borderline 200-239 130-159 3.4-4.99 High >240 >160 >5.0 Performed By: #### L 500.03598, L500.95875, L500.75719, L550.80325, L500.05849 #### [facility] [address] [place] [address] Triglyceride [Mass/Vol] 225 mg/dL High 30-149 [facility] Comment on above: Result Comment: Jenifer ents receiving either N-Acetylcysteine (NAC) or Metamizole prior to venipuncture, may have falsely depressed results. Performed By: #### L 500.60760, L500.52678, L500.37645, L550.57420, L500.46679 #### [facility] [address] [place] [address] TSHon 11-12-2021 TSH 2.885 UIU/ML Normal 0.358-3.[address] [facility] Comment on above: Result Comment: 3rd generation ultra sensitive TSH Performed By: #### L 500.80020, L500.52593, L500.41053, L550.87049, L500.54764 #### [facility] [address] [place] [address] T-SPOT TBon 08-03-2021 T-SPOT RESULT Negative Normal NEGATIVE [facility] Comment on above: Order Comment: T-SPO T SENT TO [facility] 07/31/21 1001 EVELIA SCHUSTER Result Comment: A ne gative test result does not exclude the possibility of exposure to or infection with Mycobacterium tuberculosis (M. tuberculosis). Patients with recent exposure to TB infected individuals exhibiting a negative T-SPOT.TB result should be considered for retesting within 6 weeks or if other relevant clinical symptoms indicate. Results from T_SPOT.TB testing must be used in conjunction with each individual's epidemiological history, current medical status, and results of other diagnostic evaluations. The T-SPOT.TB test is qualitative and results are reported as positive, borderline or negative, given that the test controls perform as expected. In line with the Centers for Disease Control and Prevention's 2010 recommendation to report quantitative measurements alongside the qualitative results, the laboratory provides spot counts for informational purposes only. The T-SPOT.TB test should not be interpreted as a quantitative test. TESTING PERFORMED AT [facility], [address] [place] [address] TESTING PERFORMED BY [facility], [address] [place] [address]. Performed By: #### L 500.44736, L500.11233, L500.71686, L550.99499, L500.63398 #### [facility] [address] [place] [address] CBC W/DIFFon 06-11-2021 EOS ABS 3.31 K/CU MM High 0-0.5 [facility] Comment on above: Performed By: #### L 500.24059, L500.54639, L500.64636, L550.76897, L500.48683 #### [facility] [address] [place] [address] Eosinophils/100 WBC (Bld) 29.0 % High 0-5 [facility] Comment on above: Performed By: #### L 500.68640, L500.60309, L500.69663, L550.31339, L500.95585 #### [facility] [address] [place] [address] HYPO 1+ Normal [facility] Comment on above: Performed By: #### L 500.40710, L500.66872, L500.20278, L550.31442, L500.17810 #### [facility] [address] [place] [address] LYMPH ABS 1.37 K/CU MM Normal 0.9-4.4 [facility] Comment on above: Performed By: #### L 500.96774, L500.94921, L500.63337, L550.60112, L500.24510 #### [facility] [address] [place] [address] Lymphocytes/100 WBC (Bld) 12.0 % Low 20-40 [facility] Comment on above: Performed By: #### L 500.52056, L500.88377, L500.57082, L550.05707, L500.48147 #### [facility] [address] [place] [address] MONO ABS 0.57 K/CU MM Normal 0.1-1.1 [facility] Comment on above: Performed By: #### L 500.38702, L500.34346, L500.14818, L550.58276, L500.14827 #### [facility] [address] [place] [address] Monocytes/100 WBC (Bld) 5.0 % Normal 2-10 [facility] Comment on above: Performed By: #### L 500.88562, L500.87251, L500.20867, L550.58641, L500.16693 #### [facility] [address] [place] [address] NEUTROPHIL ABS 6.16 K/CU MM Normal 2.0-8.3 [facility] Comment on above: Performed By: #### L 500.33961, L500.97756, L500.84775, L550.69980, L500.39598 #### [facility] [address] [place] [address] Neutrophils/100 WBC (Bld) 54.0 % Normal 45-75 [facility] Comment on above: Performed By: #### L 500.17688, L500.96731, L500.90945, L550.99423, L500.35587 #### [facility] [address] [place] [address] PLT EST ADEQUATE Normal [facility] Comment on above: Performed By: #### L 500.23286, L500.39286, L500.06757, L550.16111, L500.30464 #### [facility] [address] [place] [address] POIK 1+ Normal [facility] Comment on above: Performed By: #### L 500.74858, L500.29139, L500.63118, L550.99349, L500.60339 #### [facility] [address] [place] [address] POLY 1+ Normal [facility] Comment on above: Performed By: #### L 500.11907, L500.31632, L500.07067, L550.13457, L500.30597 #### [facility] [address] [place] [address] Erythrocyte distribution width (RBC) [Ratio] 14.2 % Normal 11-14.5 [facility] Comment on above: Performed By: #### L 500.11102, L500.73544, L500.43083, L550.37685, L500.41777 #### [facility] [address] [place] [address] Hematocrit (Bld) [Volume fraction] 40.3 % Normal 35.0-47.0 [facility] Comment on above: Performed By: #### L 500.60602, L500.27564, L500.56015, L550.53713, L500.94739 #### [facility] [address] [place] [address] Hemoglobin (Bld) [Mass/Vol] 12.8 g/dL Normal 11.5-15.5 [facility] Comment on above: Performed By: #### L 500.74040, L500.68888, L500.32610, L550.10650, L500.58187 #### [facility] [address] [place] [address] MCHC (RBC) [Mass/Vol] 31.8 g/dL Low 32.0-36.0 [facility] Comment on above: Performed By: #### L 500.13291, L500.68409, L500.29547, L550.27218, L500.73929 #### [facility] [address] [place] [address] MCV (RBC) [Entitic vol] 97.6 fL Normal 80.0-99.0 [facility] Comment on above: Performed By: #### L 500.96312, L500.25099, L500.60877, L550.52199, L500.56654 #### [facility] [address] [place] [address] Nucleated RBC/100 WBC (Bld) [Ratio] 0.0 % Normal Less than 1 [facility] Comment on above: Performed By: #### L 500.86746, L500.83245, L500.87659, L550.65495, L500.42368 #### [facility] [address] [place] [address] Platelet mean volume (Bld) [Entitic vol] 9.7 fL Normal 9.4-12.4 [facility] Comment on above: Performed By: #### L 500.95661, L500.81198, L500.00805, L550.17593, L500.60745 #### [facility] [address] [place] [address] PLT 153 K/CU MM Normal 150-450 [facility] Comment on above: Performed By: #### L 500.93694, L500.11728, L500.01018, L550.02625, L500.51201 #### [facility] [address] [place], [place] [address] RBC 4.13 M/CU MM Normal 3.90-5.30 [facility] Comment on above: Performed By: #### L 500.13493, L500.81384, L500.62713, L550.44491, L500.44634 #### [facility] [address] [place], [place] [address] WBC 11.4 K/CUMM High 4.5-11.0 [facility] Comment on above: Performed By: #### L 500.14701, L500.64282, L500.97835, L550.70032, L500.47146 #### [facility] [address] [place] [address] CMPon 06-11-2021 Albumin [Mass/Vol] 3.9 g/dL Normal 3.2-5.0 [facility] Comment on above: Performed By: #### L 500.96531, L500.28712, L500.59552, L550.24809, L500.26008 #### [facility] [address] [place] [address] Albumin/Globulin [Mass ratio] 1.3 {ratio} Normal 0.8-2.0 [facility] Comment on above: Performed By: #### L 500.55111, L500.18185, L500.18145, L550.78575, L500.95879 #### [facility] [address] [place], [place] [address] ALK PHOS 48 U/L Normal 45-117 [facility] Comment on above: Performed By: #### L 500.56471, L500.88673, L500.76332, L550.42747, L500.48555 #### [facility] [address] [place] [address] ALT [Catalytic activity/Vol] 21 U/L Normal 13-61 [facility] Comment on above: Result Comment: RESU LTS MAY BE FALSELY DEPRESSED AFTER THE ADMINISTRATION OF SULFASALAZINE AND/OR SULFAPYRIDINE. Performed By: #### L 500.87704, L500.81937, L500.28905, L550.06374, L500.62452 #### [facility] [address] [place] [id number] Anion gap [Moles/Vol] 10 mmol/L Normal 5-16 Bess Kaiser [facility] Comment on above: Performed By: #### L 500.45158, L500.18797, L500.28268, L550.94931, L500.03329 #### [facility] [place] [address] AST [Catalytic activity/Vol] 29 U/L Normal 8-34 [facility] Comment on above: Result Comment: RESU LTS MAY BE FALSELY DEPRESSED AFTER THE ADMINISTRATION OF SULFASALAZINE AND/OR SULFAPYRIDINE. Performed By: #### L 500.11322, L500.80664, L500.14423, L550.10571, L500.05368 #### [facility] [address] [place] [address] BILI TOTAL 0.30 MG/DL Normal 0.2-1.0 [facility] Comment on above: Performed By: #### L 500.23147, L500.18201, L500.93187, L550.33462, L500.71930 #### [facility] [address] [place] [address] Calcium [Mass/Vol] 10.0 mg/dL Normal 8.5-10.5 [facility] Comment on above: Result Comment: NOTE NEW NORMAL RANGE DUE TO REAGENT CHANGE Performed By: #### L 500.00598, L500.08981, L500.95057, L550.54404, L500.73153 #### [facility] [address] [place] [address] Chloride [Moles/Vol] 104 mmol/L Normal 98-107 [facility] Comment on above: Performed By: #### L 500.54864, L500.51952, L500.61090, L550.13689, L500.41285 #### [facility] [address] [place] [address] CO2 [Moles/Vol] 27.0 mmol/L Normal 21-32 [facility] Comment on above: Performed By: #### L 500.69498, L500.98888, L500.99876, L550.79146, L500.56169 #### [facility] [address] [place] [address] Creatinine [Mass/Vol] 1.13 mg/dL High 0.510- 0.[address] [facility] Comment on above: Result Comment: Jenifer ents receiving either N-Acetylcysteine (NAC) or Metamizole prior to venipuncture, may have falsely depressed results. Performed By: #### L 500.47842, L500.31186, L500.17354, L550.67343, L500.35005 #### [facility] [address] [place] [address] Globulin (S) [Mass/Vol] 2.9 g/dL Normal 2.2-4.2 [facility] Comment on above: Performed By: #### L 500.22869, L500.29198, L500.95298, L550.72505, L500.29238 #### [facility] [address] [place] [address] Glucose [Mass/Vol] 154 mg/dL High 70-100 [facility] Comment on above: Result Comment: 70-1 00- Normal Fasting; 100-125 Impaired Fasting; greater than 126 on more than one result- Diabetes. ADA guidelines. Results may be falsely elevated after the administration of Sulfapyridine. Results may be falsely depressed after the administration of Sulfasalazine. Performed By: #### L 500.97269, L500.38285, L500.26868, L550.47411, L500.21120 #### [facility] [address] [place] [address] Potassium [Moles/Vol] 4.3 mmol/L Normal 3.5-5.1 [facility] Comment on above: Performed By: #### L 500.26718, L500.29863, L500.06078, L550.84200, L500.11540 #### [facility] [address] [place] [address] Protein [Mass/Vol] 6.8 g/dL Normal 6.0-8.5 [facility] Comment on above: Performed By: #### L 500.16628, L500.20458, L500.67084, L550.51068, L500.37281 #### [facility] [address] [place] [address] Sodium [Moles/Vol] 141 mmol/L Normal 136-145 [facility] Comment on above: Performed By: #### L 500.29475, L500.22447, L500.37258, L550.41173, L500.60204 #### [facility] [address] [place] [address] Urea nitrogen [Mass/Vol] 19 mg/dL Normal 7-26 [facility] Comment on above: Performed By: #### L 500.99022, L500.76638, L500.15451, L550.06982, L500.12094 #### [facility] [address] [place] [address] Urea nitrogen/Creatinine [Mass ratio] 17 mg/mg Normal 15-24 [facility] Comment on above: Performed By: #### L 500.79973, L500.21358, L500.96825, L550.63368, L500.19571 #### [facility] [address] [place] [address] GFR ESTon 06-11-2021 IF AMER [address] [facility] Comment on above: Performed By: #### L 500.81836, L500.85790, L500.06877, L550.44390, L500.87558 #### [facility] [address] [place] [address] IF non-AFR AMER [address] [facility] Comment on above: Performed By: #### L 500.74867, L500.43103, L500.20231, L550.96237, L500.60536 #### [facility] [place] [address] HGB A1C GLYCOHBon 06-11-2021 HbA1c (Bld) [Mass fraction] 7.3 % High 4.3-6.0 [facility] Comment on above: Performed By: #### L 500.71178, L500.95545, L500.81651, L550.71426, L500.68213 #### [facility] [address] [place] [address] LIPIDon 06-11-2021 CHOL 111 MG/dL Normal 0-199 [facility] Comment on above: Performed By: #### L 500.67503, L500.81558, L500.85276, L550.75950, L500.01092 #### [facility] [address] [place] [address] Cholesterol in HDL [Mass/Vol] 25 mg/dL Low GREATER THAN 40 [facility] Comment on above: Result Comment: Jenifer ents receiving Metamizole prior to venipuncture, may have falsely depressed results. Performed By: #### L 500.56807, L500.95011, L500.55876, L550.73670, L500.89146 #### [facility] [address] [place] [address] Cholesterol in LDL [Mass/Vol] 44 mg/dL Normal [facility] Comment on above: Result Comment: ___C HOLESTEROL/HDL RATIO RISK___ CHD RISK = Total CHOL LDL HDL (CHOL/HDL) Recommended <200 <130 >40 <3.4 Borderline 200-239 130-159 3.4-4.99 High >240 >160 >5.0 Performed By: #### L 500.70281, L500.10921, L500.99118, L550.26034, L500.08037 #### [facility] [address] [place] [address] Triglyceride [Mass/Vol] 210 mg/dL High 30-149 [facility] Comment on above: Result Comment: Jenifer ents receiving either N-Acetylcysteine (NAC) or Metamizole prior to venipuncture, may have falsely depressed results. Performed By: #### L 500.09519, L500.60124, L500.48945, L550.75351, L500.06082 #### [facility] [address] [place] [address] TSHon 06-11-2021 TSH 2.034 UIU/ML Normal 0.358-3.[address] [facility] Comment on above: Result Comment: 3rd generation ultra sensitive TSH Performed By: #### L 500.60660, L500.94004, L500.29973, L550.12311, L500.32097 #### [facility] [place] [address] UR MICROALB RDMon 06-11-2021 Creatinine [Mass/Vol] 41.90 mg/dL Normal 22.00- 328. 00 [facility] Comment on above: Performed By: #### L 650.59144 #### [facility] [address] [place] [address] U ALB/CRE RATIO 11.00 UG/MGCR Normal 0.00-30.00 [facility] Comment on above: Performed By: #### L 650.21646 #### [facility] [address] [place] [address] UR MICROALB RDM 5.0 MG/L Normal 0.0-19.0 [facility] Comment on above: Performed By: #### L 650.12170 #### [facility] [address] [place] [address] [id number] 06-11-2021 [id number] 90.4 NG/ML Normal 30.0-100.0 [facility] Comment on above: Result Comment: Defi ciency Less than 20 ng/mL Insufficiency 20 - Less than 30 ng/mL Sufficiency 30 - 100 ng/mL Performed By: #### L 500.37761, L500.49542, L500.44083, L550.74546, L500.96733 #### [facility] [address] [place] [address] CMPon 02-16-2021 Albumin [Mass/Vol] 4.0 g/dL Normal 3.2-5.0 [facility] Comment on above: Performed By: #### L 500.49782, L550.89640, L500.18315, L500.82554, L500.45279 #### [facility] [address] [place] [address] Albumin/Globulin [Mass ratio] 1.7 {ratio} Normal 0.8-2.0 [facility] Comment on above: Performed By: #### L 500.74002, L550.09107, L500.84992, L500.44883, L500.43880 #### [facility] [place] [address] ALK PHOS 53 U/L Normal 45-117 [facility] Comment on above: Performed By: #### L 500.83250, L550.63109, L500.09284, L500.36208, L500.97234 #### [facility] [address] [place] [address] ALT [Catalytic activity/Vol] 18 U/L Normal 13-61 [facility] Comment on above: Result Comment: RESU LTS MAY BE FALSELY DEPRESSED AFTER THE ADMINISTRATION OF SULFASALAZINE AND/OR SULFAPYRIDINE. Performed By: #### L 500.35141, L550.25312, L500.52843, L500.98109, L500.84091 #### [facility] [address] [place] [address] Anion gap [Moles/Vol] 10 mmol/L Normal 5-16 [facility] Comment on above: Performed By: #### L 500.33996, L550.40480, L500.40188, L500.29325, L500.74651 #### [facility] [address] [place] [address] AST [Catalytic activity/Vol] 19 U/L Normal 8-34 [facility] Comment on above: Result Comment: RESU LTS MAY BE FALSELY DEPRESSED AFTER THE ADMINISTRATION OF SULFASALAZINE AND/OR SULFAPYRIDINE. Performed By: #### L 500.97284, L550.14377, L500.07502, L500.00631, L500.74358 #### [facility] [address] [place] [address] BILI TOTAL 0.40 MG/DL Normal 0.2-1.0 [facility] Comment on above: Performed By: #### L 500.92817, L550.90487, L500.10581, L500.89066, L500.01315 #### [facility] [place] [address] Calcium [Mass/Vol] 10.0 mg/dL Normal 8.5-10.5 [facility] Comment on above: Result Comment: NOTE NEW NORMAL RANGE DUE TO REAGENT CHANGE Performed By: #### L 500.87926, L550.51219, L500.21072, L500.99347, L500.82062 #### [facility] [address] [place] [address] Chloride [Moles/Vol] 107 mmol/L Normal 98-107 [facility] Comment on above: Performed By: #### L 500.86924, L550.14291, L500.16187, L500.88179, L500.09465 #### [facility] [address] [place] [address] CO2 [Moles/Vol] 26.0 mmol/L Normal 21-32 [facility] Comment on above: Performed By: #### L 500.49118, L550.84018, L500.32015, L500.59168, L500.41965 #### [facility] [address] [place] [address] Creatinine [Mass/Vol] 1.19 mg/dL High 0.510- 0.[address] [facility] Comment on above: Result Comment: Jenifer ents receiving either N-Acetylcysteine (NAC) or Metamizole prior to venipuncture, may have falsely depressed results. Performed By: #### L 500.51457, L550.78359, L500.06092, L500.63655, L500.74179 #### [facility] [address] [place] [address] Globulin (S) [Mass/Vol] 2.4 g/dL Normal 2.2-4.2 [facility] Comment on above: Performed By: #### L 500.84382, L550.51095, L500.70326, L500.01499, L500.70265 #### [facility] [address] [place] [address] Glucose [Mass/Vol] 155 mg/dL High 70-100 [facility] Comment on above: Result Comment: 70-1 00- Normal Fasting; 100-125 Impaired Fasting; greater than 126 on more than one result- Diabetes. ADA guidelines. Results may be falsely elevated after the administration of Sulfapyridine. Results may be falsely depressed after the administration of Sulfasalazine. Performed By: #### L 500.30378, L550.07836, L500.11919, L500.84019, L500.41964 #### [facility] [address] [place] [address] Potassium [Moles/Vol] 4.7 mmol/L Normal 3.5-5.1 [facility] Comment on above: Performed By: #### L 500.09737, L550.74492, L500.29459, L500.82489, L500.99131 #### [facility] [address] [place] [address] Protein [Mass/Vol] 6.4 g/dL Normal 6.0-8.5 [facility] Comment on above: Performed By: #### L 500.59428, L550.83152, L500.60783, L500.34054, L500.18171 #### [facility] [place] [address] Sodium [Moles/Vol] 144 mmol/L Normal 136-145 [facility] Comment on above: Performed By: #### L 500.64831, L550.01423, L500.99060, L500.82471, L500.07279 #### [facility] [address] [place], [place] [address] Urea nitrogen [Mass/Vol] 20 mg/dL Normal 7-26 [facility] Comment on above: Performed By: #### L 500.96422, L550.51925, L500.85047, L500.78813, L500.81290 #### [facility] [address] [place] [address] Urea nitrogen/Creatinine [Mass ratio] 17 mg/mg Normal 15-24 [facility] Comment on above: Performed By: #### L 500.94626, L550.90354, L500.31744, L500.71822, L500.43769 #### [facility] [address] [place] [address] GFR ESTon 02-16-2021 IF AMER [address] [facility] Comment on above: Performed By: #### L 500.71857, L550.26913, L500.78231, L500.44500, L500.08711 #### [facility] [address] [place] [address] IF non-AFR AMER [address] [facility] Comment on above: Performed By: #### L 500.20752, L550.04255, L500.75557, L500.26700, L500.52679 #### [facility] [address] [place] [address] HGB A1C GLYCOHBon 02-16-2021 HbA1c (Bld) [Mass fraction] 7.5 % High 4.3-6.0 [facility] Comment on above: Performed By: #### L 500.69804, L500.66616, L500.29593, L550.83520, L500.73758 #### [facility] [address] [place] [address] LIPIDon 02-16-2021 CHOL 123 MG/dL Normal 0-199 [facility] Comment on above: Performed By: #### L 500.67450, L550.02986, L500.27134, L500.96872, L500.39566 #### [facility] [address] [place] [address] Cholesterol in HDL [Mass/Vol] 30 mg/dL Low GREATER THAN 40 [facility] Comment on above: Result Comment: Jenifer ents receiving Metamizole prior to venipuncture, may have falsely depressed results. Performed By: #### L 500.03127, L550.86635, L500.50543, L500.55676, L500.82289 #### [facility] [address] [place] [address] Cholesterol in LDL [Mass/Vol] 40 mg/dL Normal [facility] Comment on above: Result Comment: ___C HOLESTEROL/HDL RATIO RISK___ CHD RISK = Total CHOL LDL HDL (CHOL/HDL) Recommended <200 <130 >40 <3.4 Borderline 200-239 130-159 3.4-4.99 High >240 >160 >5.0 Performed By: #### L 500.37760, L550.77747, L500.36214, L500.43781, L500.13732 #### [facility] [address] [place], [place] [address] Triglyceride [Mass/Vol] 266 mg/dL High 30-149 [facility] Comment on above: Result Comment: Jenifer ents receiving either N-Acetylcysteine (NAC) or Metamizole prior to venipuncture, may have falsely depressed results. Performed By: #### L 500.47421, L550.95064, L500.44642, L500.27805, L500.13160 #### [facility] [address] [place], [place] [address] TSHon 02-16-2021 TSH 2.281 UIU/ML Normal 0.358-3.[address] [facility] Comment on above: Result Comment: 3rd generation ultra sensitive TSH Performed By: #### L 500.32355, L550.24993, L500.17418, L500.21499, L500.97303 #### [facility] [address] [place], [place] [address] [id number] 02-16-2021 [id number] 57.9 NG/ML Normal 30.0-100.0 [facility] Comment on above: Result Comment: Defi ciency Less than 20 ng/mL Insufficiency 20 - Less than 30 ng/mL Sufficiency 30 - 100 ng/mL Performed By: #### L 500.52574, L500.40680, L500.07030, L550.25072, L500.06065 #### [facility] [address] [place] [address] CNOVon 10-24-2017 CNOV Office Visit (OTOLMN) PENNY MCKEON ([id number]) 1945 [facility] Time Provider Department10/24/17 1:00 PM CADEN SAUCEDA (LATISHA) OTOLMN During your visit today, we recorded the following information about you:Dania Malik Ma 10/24/2017 1:24 PM SignedTobacco Use: Quit 10/03/1994.Was smoking cessation packet given? N/A - Patient is a non-smoker or quit ANDgt;1year ago.Was a referral initiated?N/A Patient is a non-smokerCaden Sauceda MD 10/24/2017 1:37 PM SignedHistory of Present IllnessMs. PENNY MCKEON is a 72 year old female returning for follow-up of leftsided hearing loss.Last seen 08/29/2017.Since last seen, CT IAC done to rule out cholesteatoma.IMPRESSION:E XTENSIVE SOFT TISSUE/FLUID ATTENUATION MATERIAL OPACIFYING THELEFT-SIDED MASTOID AIR CELL AND MIDDLE EAR CAVITY WITH THICKENING OF THETYMPANIC MEMBRANE. ?THERE MAY BE A COMPONENT OF CHOLESTASIS AISHA, BUTTHERE IS ALSO MOST LIKELY ACCOMPANYING FLUID OPACIFYING THE MIDDLE EARCAVITY AND MASTOID AIR CELLS.Doing better after ciprodex, but still difficulty hearing. No changes sincelast visit.ALLERGIESNo Known AllergiesCurrent Outpatient Prescriptions on File Prior to Visit:aspirin 325 mg tablet Take 325 mg by mouth once daily.oxybutynin ER (DITROPAN XL) 10 mg 24 hr tablet Take 10 mg by mouth once daily.FENOFIBRATE MICRONIZED 145 MG TABniacin ER (NIASPAN) 1,000 mg CR tablet Take 1,000 mg by mouth daily at bedtime.Levothyroxine 50 mcg cap Take by mouth.lisinopril (ZESTRIL, PRINIVIL) 40 mg tablet Take 40 mg by mouth once daily.simvastatin (ZOCOR) 40 mg tablet Take 40 mg by mouth daily at bedtime.carvedilol (COREG) 25 mg tablet Take 25 mg by mouth twice daily with meals.sitaGLIPtin-metFORMI N (JANUMET XR) 50-1,000 mg TM24 Take by mouth.escitalopram oxalate (LEXAPRO) 20 mg tablet Take 20 mg by mouth once daily.COQ10, LIPOSOMAL UBIQUINOL, ORAL Take by mouth.ustekinumab (STELARA) 130 mg/26 mL injection Inject intravenously.CALCIUM CARBONATE/VITAMIN D3 (VITAMIN D-3 ORAL) Take by mouth.albuterol (PROVENTIL) 2.5 mg /3 mL (0.083 %) nebulizer solution Use 2.5 mg vianebulizer.ciprofloxacin -dexamethasone (CIPRODEX) otic suspension Use 4 Drops in the leftear twice daily.No current facility-administered medications on file prior to visit.Objective:There were no vitals taken for this visit.Appearance: normalCommunication: normalHead/Face: no lesions Facial nerve 1/6 bilateralEars: AD normal KYLER, EAC clear Rinne Phelps AD [id number] AD + +1024Neck: no LAD; thyroid normalLymphatic: normalNeuro/Psych.: Alert and Oriented; no nystagmus Cranial nerves intactPROCEDURE NOTE: Recommended flexible laryngoscopy. Risks, benefits andalternatives were explained.PROCEDURE: Flexible LaryngoscopyPREOPERATIVE DIAGNOSIS: unilateral middle ear effusionPOSTOPERATIVE DIAGNOSIS: sameINDICATIONS:Excessive Gag reflex - Preventing Mirror ExaminationANESTHESIA: Lidocaine 2% and Jin-Synephrine ?%PROCEDURE: Topical anesthesia and vasoconstriction was applied with spray tothe right and left side(s) of the nose. After waiting an appropriate period oftime for anesthesia/vasoconstrictio n to become effective, a flexiblelaryngoscope was passed through the the left and right side(s) of the nose.Nasopharynx, oropharynx, hypopharynx and larynx were examined.FINDINGS: The nasopharynx and oropharynx were normal without any lesions ormasses visualized. No masses or lesions were visualized at the base of tongue,vallecula, epiglottis, aryepiglottic folds, pyriform sinuses, and lateralpharyngeal gerardo. True vocal fold movement was intact bilaterally. No lesionsvisualized. The patient's airway was widely patent with no evidence ofobstruction.Pt tolerated the procedure well, and there were no complications. Theprocedure was performed by Dr. Sauceda.Caden Sauceda, MDData Review:Assessment:(H90.12) Conductive hearing loss of left ear, unspecified hearing status oncontralateral side (primary encounter diagnosis)Plan:1. OME, unilateral - consult otology for possible PET placement- will defer audio for now given clear middle ear effusion and hearing lossOrders:Office Visit on 10/24/17-CONSULT TO ENTProcedures:Referring Provider: SELF [200]Allergies As of Date: 10/24/2017(No Known Allergies)Date Reviewed: 08/29/2017Reviewed by: Nurys AlmanzaRn) MATA Veliz - Fully AssessedReason for Visit: Follow Up [171]Primary Visit Diagnosis:Conductive hearing loss of left ear, unspecified hearing status on contralateral side [H90.12]Order(s):CONSULT TO ENT [9008] Order #: [id number]: 1Prescriptions as of 10/24/2017 Sig: ASPIRIN 325 MG TABLET Take 325 mg by mouth once karina* OXYBUTYNIN CHLORIDE ER 10 MG * Take 10 mg by mouth once rody* FENOFIBRATE MICRONIZED 145 MG* NIACIN ER 1,000 MG TABLET,EXT* Take 1,000 mg by mouth daily * LEVOTHYROXINE 50 MCG CAPSULE Take by mouth. LISINOPRIL 40 MG TABLET Take 40 mg by mouth once rody* SIMVASTATIN 40 MG TABLET Take 40 mg by mouth daily at * CARVEDILOL 25 MG TABLET Take 25 mg by mouth twice karina* SITAGLIPTIN 50 MG-METFORMIN E* Take by mouth. ESCITALOPRAM 20 MG TABLET Take 20 mg by mouth once rody* COQ10 (LIPOSOMAL UBIQUINOL) O* Take by mouth. USTEKINUMAB 130 MG/26 ML INTR* Inject intravenously. VITAMIN D-3 ORAL Take by mouth. ALBUTEROL SULFATE 2.5 MG/3 ML* Use 2.5 mg via nebulizer. CIPROFLOXACIN 0.3 %-DEXAMETHA* Use 4 Drops in the left ear t*Medication notes this encounter VITAMIN D-3 ORAL >> Dania Malik Ma 10/24/2017 1:23 PM >> DAINA MALIK MA Oct 24, 2017 1:23 PM Not using ALBUTEROL SULFATE 2.5 MG/3 ML (0.083 %) SOLUTION FOR NEBULIZATION >> Dania Malik Ma 10/24/2017 1:22 PM >> DANIA MALIK MA TueOct 24, 2017 1:22 PM prn CIPROFLOXACIN 0.3 %-DEXAMETHASONE 0.1 % EAR DROPS,SUSPENSION >> Dania Malik Ma 10/24/2017 1:23 PM >> DANIA MALIK MA TueOct 24, 2017 1:23 PM Needs refillProblem List As Of Date: 10/24/2017(None)Visit Notes:>> Dania Malik Ma TueOct 24, 2017 1:24 PM Status: SignedTobacco Use: Quit 10/03/1994.Was smoking cessation packet given? N/A - Patient is a non-smoker or quit>1 year ago.Was a referral initiated?N/A Patient is a non-smokerLevel of Service: [facility] PATIENT VISIT LEVEL 4 [83013]Disposition: Return if symptoms worsen or fail to improve.Follow-up and Disposition History RecordedEncounter Number: [id number] Status:Closed by CADEN SAUCEDA MD on 10/24/17 Normal [facility] HISTORY PHYSICALon HISTORY PHYSICAL HNO ID: [id number] thor: Caden (Latisha) Dominiqueervice: (none)Author Type: FellowType: HANDPFiled: 10/24/2017 1:37 PMNote Text:History of Present IllnessMs. PENNY MCKEON is a 72 year old female returning for follow-up of leftsided hearing loss.Last seen 08/29/2017.Since last seen, CT IAC done to rule out cholesteatoma.IMPRESSION:E XTENSIVE SOFT TISSUE/FLUID ATTENUATION MATERIAL OPACIFYING THELEFT-SIDED MASTOID AIR CELL AND MIDDLE EAR CAVITY WITH THICKENING OF THETYMPANIC MEMBRANE. ?THERE MAY BE A COMPONENT OF CHOLESTASIS AISHA, BUTTHERE IS ALSO MOST LIKELY ACCOMPANYING FLUID OPACIFYING THE MIDDLE EARCAVITY AND MASTOID AIR CELLS.Doing better after ciprodex, but still difficulty hearing. No changessince last visit.ALLERGIESNo Known AllergiesCurrent Outpatient Prescriptions on File Prior to Visit:aspirin 325 mg tablet Take 325 mg by mouth once daily.oxybutynin ER (DITROPAN XL) 10 mg 24 hr tablet Take 10 mg by mouth oncedaily.FENOFIBRATE MICRONIZED 145 MG TABniacin ER (NIASPAN) 1,000 mg CR tablet Take 1,000 mg by mouth daily atbedtime.Levothyroxine 50 mcg cap Take by mouth.lisinopril (ZESTRIL, PRINIVIL) 40 mg tablet Take 40 mg by mouth oncedaily.simvastatin (ZOCOR) 40 mg tablet Take 40 mg by mouth daily at bedtime.carvedilol (COREG) 25 mg tablet Take 25 mg by mouth twice daily withmeals.sitaGLIPtin-metF ORMIN (JANUMET XR) 50-1,000 mg TM24 Take by mouth.escitalopram oxalate (LEXAPRO) 20 mg tablet Take 20 mg by mouth oncedaily.COQ10, LIPOSOMAL UBIQUINOL, ORAL Take by mouth.ustekinumab (STELARA) 130 mg/26 mL injection Inject intravenously.CALCIUM CARBONATE/VITAMIN D3 (VITAMIN D-3 ORAL) Take by mouth.albuterol (PROVENTIL) 2.5 mg /3 mL (0.083 %) nebulizer solution Use 2.5 mgvia nebulizer.ciprofloxacin-de xamethasone (CIPRODEX) otic suspension Use 4 Drops in theleft ear twice daily.No current facility-administered medications on file prior to visit.Objective:There were no vitals taken for this visit.Appearance: normalCommunication: normalHead/Face: no lesions Facial nerve 1/6 bilateralEars: AD normal KYLER, EAC clear Rinne Phelps AD [id number] AD + +1024Neck: no LAD; thyroid normalLymphatic: normalNeuro/Psych.: Alert and Oriented; no nystagmus Cranial nerves intactPROCEDURE NOTE: Recommended flexible laryngoscopy. Risks, benefits andalternatives were explained.PROCEDURE: Flexible LaryngoscopyPREOPERATIVE DIAGNOSIS: unilateral middle ear effusionPOSTOPERATIVE DIAGNOSIS: sameINDICATIONS:Excessive Gag reflex - Preventing Mirror ExaminationANESTHESIA: Lidocaine 2% and Jin-Synephrine ?%PROCEDURE: Topical anesthesia and vasoconstriction was applied with sprayto the right and left side(s) of the nose. After waiting an appropriateperiod of time for anesthesia/vasoconstrictio n to become effective, aflexible laryngoscope was passed through the the left and right side(s) ofthe nose. Nasopharynx, oropharynx, hypopharynx and larynx were examined.FINDINGS: The nasopharynx and oropharynx were normal without any lesionsor masses visualized. No masses or lesions were visualized at the base oftongue, vallecula, epiglottis, aryepiglottic folds, pyriform sinuses, andlateral pharyngeal gerardo. True vocal fold movement was intactbilaterally. No lesions visualized. The patient's airway was widelypatent with no evidence of obstruction.Pt tolerated the procedure well, and there were no complications. Theprocedure was performed by Dr. Sauceda.MACO Moncadaata Review:Assessment:(H90.12) Conductive hearing loss of left ear, unspecified hearing statuson contralateral side (primary encounter diagnosis)Plan:1. OME, unilateral - consult otology for possible PET placement- will defer audio for now given clear middle ear effusion and hearinglossOrders:Office Visit on 10/24/17-CONSULT TO ENTProcedures: Normal [facility] CNOVon 08-29-2017 CNOV Office Visit (OTOLMN) PENNY MCKEON ([id number]) 1945 [facility] Time Provider Ooughetrfi43/27/17 3:30 PM CADEN SAUCEDA (LATISHA) OTOLMN During your visit today, we recorded the following information about you: Pulse Blood pressure Weight Height 90/minute 105/65 126.6 kg 1.632 Rona Carter Ma 08/29/2017 2:39 PM SignedTobacco Use: Quit 10/03/1994.Was smoking cessation packet given? N/A - Patient is a non-smoker or quit ANDgt;1year ago.Was a referral initiated?N/A Patient is a non-smokerCaden Sauceda MD 08/29/2017 3:02 PM SignedCC: Patient presents with:New Patient: bilateral ear blockageConsultation requested by selffor an opinion regarding left hearing loss. Myfinal recommendations will be communicated back to the requesting physician byway of shared medical record or letter via US mailHPI: Penny Mckeno is a 71 year old female who presents with a complex historyof left ear drainage. Present for many years - has had PET x 2 (30 years and 2years ago). Since the last, describes her OSH ENT having to cut the tube out2/2 difficulty removing.Continues to drain qam, foul smelling. Associated with hearing loss and qhspulsatile tinnitus. No vertigo or facial droop.ALLERGIESNo Known AllergiesNo current outpatient prescriptions on file prior to visit.No current facility-administered medications on file prior to visit.No past medical history on file.No past surgical history on file.Social History Marital status: Spouse name: Years of education: Number of children:Social History Main Topics Smoking status: Former Smoker Packs/day: 0.00 Years: 0.00 Quit date: 10/03/1994Review of Systems:PAIN ASSESSMENT: Negative for pain, history of chronic pain, or currenttreatment for a chronic pain condition.GENERAL: No weight loss, malaise or fevers.HEENT: Negative for frequent or significant headaches, No changes in hearing orvision, no nose bleeds or other nasal problemsNECK: Negative for goiter, pain or significant neck swellingThe remainder of the review of systems is negative.?PHYSICAL EXAM (detailed):Constitutional: * BP 105/65 Pulse 90 Ht 5' 4.25ANDquot; (1.63m) Wt 279 lb (126.6kg) BMI47.52 kg/(m2).* General appearance: Well developed, well nourished female without obviousdeformities. Patient has a normal body habitus and is well groomed.* Communication: The patient speaks with a normal voice without hoarseness orbreaks in speech.Head and Face:* Overall appearance: No evident asymetries, obvious scars, lesions or masses.Palpation of face did not reveal any sinus tenderness.* Parotid and submandibular glands: No masses, tenderness or swelling.* Facial strength: House-Brackmann 1/6 bilaterally.Eyes:* Extraocular movements are intact bilaterally and primary gaze alignment isnormal.* No evidence of ectropion present.Ears, Nose, Mouth and Throat:* External ears and nose: Normal in appearance, without scars, lesions, ormasses.* Ears: EAC/ TM on right normal.Landmarks not well visualized on left. ?Red hue at inferior aspectTuning forks suggestive of CHL on left.* Nasal exam: Nasal mucosa is pink and the septum is midline, visualizedturbinates are normal in appearance.* Mastication: The teeth appear healthy, and the lips and gums arewithout lesions.* Oral cavity and oropharynx: The oral mucosa, hard and soft palates, tongue,tonsil area, and posterior pharyngeal mucosa are without lesions or notableassymetries. Moist mucus membranes present.* Larynx: Base of tongue, valleculae, epiglottis and false vocal folds arenormal in appearance per mirror exam.Neck:* Neck: The neck appears symmetric without scars, and on palpation is softwithout masses, lymphadenopathy or crepitus. Trachea is midline.* Thyroid: There are no masses, thyromegaly, thyroid nodules or tenderness onpalpation.Neurologic:* Mental status: Patient is alert and oriented to person, place and timeMood and affect are appropriateMEDICAL DECISION MAKIN. CHL, left- r/o cholesteatoma vs. Vascular tumorCT IAC C+- audio- ciprodex until next visit in 1 month???Caden Sauceda, MDReferring Provider: SELF [200]Allergies As of Date: 08/29/2017(No Known Allergies)Date Reviewed: 08/29/2017Reviewed by: Nicky Carter Ma - Fully AssessedReason for Visit: New Patient [172] Cmt: bilateral ear blockagePrimary Visit Diagnosis:Conductive hearing loss of left ear, unspecified hearing status on contralateral side [H90.12] Other Visit Diagnosis:Screening for nephropathy [Z13.89]Order(s):ciproflox acin-dexamethasone (CIPRODEX) otic suspensionUse 4 Drops in the left ear twice daily.Disp: 1 BottleRfl: 3 CREATININE BLD [SQCRET] Order #: [id number] FUTURE COMPREHENSIVE AUDIOLOGIC EXAM [[id number]] Order #: [id number] CT BRAIN W IVCON [[id number]] Order #: [id number] FUTURE iv contrast (radiology procedure)CT Brain W IVCON-No IV access, insert saline lock prior to the sedation, infusion, injection for imaging exam. Discontinue saline lock post exam. If Pt. has a central line or IVAD, may access for administration according to line specific nursing protocol. Once exam is complete flush line and de-access according to line specific nursing protocol in the CT contrast administration guidelines link.Disp: 1 EachRfl: 0Prescriptions as of 08/29/2017 Sig: VITAMIN D-3 ORAL Take by mouth. ASPIRIN 325 MG TABLET Take 325 mg by mouth once karina* ALBUTEROL SULFATE 2.5 MG/3 ML* Use 2.5 mg via nebulizer. OXYBUTYNIN CHLORIDE ER 10 MG * Take 10 mg by mouth once rody* FENOFIBRATE MICRONIZED 145 MG* NIACIN ER 1,000 MG TABLET,EXT* Take 1,000 mg by mouth daily * LEVOTHYROXINE 50 MCG CAPSULE Take by mouth. LISINOPRIL 40 MG TABLET Take 40 mg by mouth once rody* SIMVASTATIN 40 MG TABLET Take 40 mg by mouth daily at * CARVEDILOL 25 MG TABLET Take 25 mg by mouth twice karina* SITAGLIPTIN 50 MG-METFORMIN E* Take by mouth. ESCITALOPRAM 20 MG TABLET Take 20 mg by mouth once rody* COQ10 (LIPOSOMAL UBIQUINOL) O* Take by mouth. USTEKINUMAB 130 MG/26 ML INTR* Inject intravenously. CIPROFLOXACIN 0.3 %-DEXAMETHA* Use 4 Drops in the left ear t* IV CONTRAST (RADIOLOGY PROCED* CT Brain W IVCON-No IV access*Problem List As Of Date: 08/29/2017(None)Visit Notes:>> Nicky Carter Ma Mon Aug 29, 2017 2:38 PM Status: SignedTobacco Use: Quit 10/03/1994.Was smoking cessation packet given? N/A - Patient is a non-smoker or quit>1 year ago.Was a referral initiated?N/A Patient is a non-smokerPrescriptions ordered this encounter Disp Refills Start End CIPROFLOXACIN 0.3 %-DEXAMETHASONE 0.* 1 Qamar* 3 08/29/2017 Route: LEFT EAR Sig: Use 4 Drops in the left ear twice daily. IV CONTRAST (RADIOLOGY PROCEDURE) 1 Ea* 0 08/29/2017 08/30/2017 Class: In Office Sig: CT Brain W IVCON-No IV access, insert saline lock prior to the sedation, infusion, injection for imaging exam. Discontinue saline lock post exam. If Pt. has a central line or IVAD, may access for administration according to line specific nursing protocol. Once exam is complete flush line and de-access according to line specific nursing protocol in the CT contrast administration guidelines link.Disposition: Return in about 4 weeks (around 09/26/2017).Follow-up and Disposition History RecordedEncounter Number: [id number] Status:Closed by CADEN SAUCEDA MD on 08/29/17 Normal [facility] CT TEMP BONES W IVCONon 11-2 CT TEMP BONES W IVCON * * *Final Report* * *DATE OF EXAM: Aug 29 2017 4:26PM [facility] 0019 - CT TEMP BONES W IVCON / REASON: Conductive hearing loss, unilateral, left ear, with unrestricted hearing on the * * * * Physician Interpretation * * * * CT of the temporal bones without contrast.HISTORY: Concern for left cholesteatoma. Conductive hearing loss on the left.TECHNIQUE: High-resolution temporal bone CT without contrast.CT Dose-Length Product (DLP): 251 mGycmCT Dose Reduction Employed: YesRadiation Shielding Employed: N/ACOMPARISON: NoneRESULT:Left temporal bone: Mild soft tissue thickening mildly narrows the left external auditory canal. There is extensive tympanic membrane thickening and near complete opacification of the left middle ear cavity and left-sided mastoid air cells. There may be mild blunting of the scutum, but otherwise, no clear evidence of osseous erosion. There may be a component of cholestasis Aisha, but there is also most likely extensive fluid opacifying the middle ear cavity and mastoid air cells. Bony labyrinth the bony course of the facial nerve are unremarkable. No evidence of dehiscence. Carotid canal and jugular bulb are within normal limits.Right temporal bone: External auditory canal is patent. The scutum is sharp. The ossicular chain maintained normal alignment and mineral density. The bony labyrinth and bony course of the facial nerve are within normal limits. IAC, vestibular aqueduct, and cochlear aqueduct are normal.IMPRESSION:EXTENSIV E SOFT TISSUE/FLUID ATTENUATION MATERIAL OPACIFYING THE LEFT-SIDED MASTOID AIR CELL AND MIDDLE EAR CAVITY WITH THICKENING OF THE TYMPANIC MEMBRANE. THERE MAY BE A COMPONENT OF CHOLESTASIS AISHA, BUT THERE IS ALSO MOST LIKELY ACCOMPANYING FLUID OPACIFYING THE MIDDLE EAR CAVITY AND MASTOID AIR CELLS.Java Programmer Analyst: JESUSITA Transcribe Date/Time: Aug 29 2017 4:38PDictated by : GUME MCKEON MDThis examination was interpreted and the report reviewed and electronically signed by: GUME MCKEON MD on Aug 29 2017 4:45PM [id number] Normal [facility] Creatinineon 08-29-2017 Creatinine 1.21 mg/dL High 0.58-0.96 [facility] Comment on above: Performed By: #### C RET1 ####[facility] [place], [place] [phone] eGFR (non-black) 53 mL/min/{1.73_m2} Normal [facility] Comment on above: Performed By: #### C RET1 ####[place] [id number] [place], [place] [phone] eGFR (non-black) 44 . Normal [facility] Comment on above: Result Comment: eGFR (Estimated GFR) Units of measure: mL/min/1.73 meters squaredeGFR is derived from the reexpressed MDRD Study equation using the following parameters: serum creatinine, age, gender and race. The creatinine assay has been calibrated to be traceable to IDMS.An eGFR <60 mL/min/1.73m2 for >3 months is consistent with chronic kidney disease. Refer to KDOQI guidelines for clinical interpretation.In patients with unstable renal function, e.g. those with acute kidney injury, the eGFR may not accurately reflect actual GFR. Performed By: #### C RET1 ####[facility] [place], [place] [phone] HISTORY PHYSICALon 7 HISTORY PHYSICAL HNO ID: [id number] thor: Caden Aguilar) Dominiqueervice: (none)Author Type: FellowType: HANDPFiled: 08/29/2017 3:02 PMNote Text:CC: Patient presents with:New Patient: bilateral ear blockageConsultation requested by selffor an opinion regarding left hearing loss.My final recommendations will be communicated back to the requestingphysician by way of shared medical record or letter via [place] mailHPI: Penny Mcekon is a 71 year old female who presents with a complexhistory of left ear drainage. Present for many years - has had PET x 2 (30years and 2 years ago). Since the last, describes her OSH ENT having tocut the tube out 2/2 difficulty removing.Continues to drain qam, foul smelling. Associated with hearing loss andqhs pulsatile tinnitus. No vertigo or facial droop.ALLERGIESNo Known AllergiesNo current outpatient prescriptions on file prior to visit.No current facility-administered medications on file prior to visit.No past medical history on file.No past surgical history on file.Social History Marital status: Spouse name: Years of education: Number of children:Social History Main Topics Smoking status: Former Smoker Packs/day: 0.00 Years: 0.00 Quit date: 10/03/1994Review of Systems:PAIN ASSESSMENT: Negative for pain, history of chronic pain, or currenttreatment for a chronic pain condition.GENERAL: No weight loss, malaise or fevers.HEENT: Negative for frequent or significant headaches, No changes inhearing or vision, no nose bleeds or other nasal problemsNECK: Negative for goiter, pain or significant neck swellingThe remainder of the review of systems is negative.?PHYSICAL EXAM (detailed):Constitutional: * BP 105/65 Pulse 90 Ht 5' 4.25 (1.63m) Wt 279 lb (126.6kg) BMI47.52 kg/(m2).* General appearance: Well developed, well nourished female withoutobvious deformities. Patient has a normal body habitus and is wellgroomed.* Communication: The patient speaks with a normal voice without hoarsenessor breaks in speech.Head and Face:* Overall appearance: No evident asymetries, obvious scars, lesions ormasses. Palpation of face did not reveal any sinus tenderness.* Parotid and submandibular glands: No masses, tenderness or swelling.* Facial strength: House-Brackmann 1/6 bilaterally.Eyes:* Extraocular movements are intact bilaterally and primary gaze alignmentis normal.* No evidence of ectropion present.Ears, Nose, Mouth and Throat:* External ears and nose: Normal in appearance, without scars, lesions, ormasses.* Ears: EAC/ TM on right normal.Landmarks not well visualized on left. ?Red hue at inferior aspectTuning forks suggestive of CHL on left.* Nasal exam: Nasal mucosa is pink and the septum is midline, visualizedturbinates are normal in appearance.* Mastication: The teeth appear healthy, and the lips and gums arewithout lesions.* Oral cavity and oropharynx: The oral mucosa, hard and soft palates,tongue, tonsil area, and posterior pharyngeal mucosa are without lesionsor notable assymetries. Moist mucus membranes present.* Larynx: Base of tongue, valleculae, epiglottis and false vocal folds arenormal in appearance per mirror exam.Neck:* Neck: The neck appears symmetric without scars, and on palpation is softwithout masses, lymphadenopathy or crepitus. Trachea is midline.* Thyroid: There are no masses, thyromegaly, thyroid nodules or tendernesson palpation.Neurologic:* Mental status: Patient is alert and oriented to person, place and timeMood and affect are appropriateMEDICAL DECISION MAKIN. CHL, left- r/o cholesteatoma vs. Vascular tumorCT IAC C+- audio- ciprodex until next visit in 1 month???Caden Sauceda MD Normal [facility] PROGRESSon 08-29-2017 Hematocrit (HCT) HNO ID: [id number] thor: Ewa Mauro (Ct) ELISABET Barahonaervice: RadiologyAuthor Type: Clinical TechnicianType: Progress NotesFiled: 08/29/2017 4:27 PMNote Text: Radiology Service Progress NotePATIENT NAME: Penny PhilippedMRN: [id number] OF SERVICE: August 29, 2017TIME: 4:27 PMPATIENT IDENTITY VERIFICATION COMPLETED USING TWO (2) METHODS: Patientconfirmed name verbally and ID band matches..PATIENT GENDER DATA: Female. status: : NoBreastfeeding status: NO.PATIENT RELEVANT IMPLANT DATA REVIEWED: Not ApplicableRADIOLOGY DEPARTMENT: CT; Exam(s) Completed: Temporal BonesPERIPHERAL IV DATA: Site assessment: Clean,Dry and Intact, Sitedisposition DiscontinuedSIGNED BY: ROBERT GallegosNov2016 4:[address] [facility] PROGRESS HNO ID: [id number] thor: Nurys AlmanzaRn) Jose Alfredo, CASIEervice: (none)Author Type: Registered NurseType: Progress NotesFiled: 08/29/2017 3:54 PMNote Text: Radiology Service Progress NotePATIENT NAME: Penny PhilippedMRN: [id number] OF SERVICE: August 29, 2017TIME: 3:46 PMPATIENT WEIGHT: 279 LBSPATIENT IDENTITY VERIFICATION COMPLETED USING TWO (2) METHODS: Patientconfirmed name verbally and ID band matches..PATIENT GENDER DATA: Female. status: : NoBreastfeeding status: NO.CONTRAST INDUCED NEPHROPATHY RISK FACTORS: Patient age > 60 yearsCREATININE: No results found for: CREAT, EGFROTH, EGFRAAP.O.C.T. RESULTS: See Lab Tab August 29, 2017TREATMENT: No Hydration needed.ALLERGIES: Reviewed and unchangedCONTRAST ALLERGY: NO.IV SITE: Ambulatory: A peripheral IV was started in the Right forearmwith a Angio cath: 20 gauge.IV SITE APPEARANCE: Clean,Dry and IntactSIGNED BY: Nurys Veliz RNNov2016 3:46 PM Normal [facility] Vital Signs Date Time Vital Sign Value Performing Clinician Price goins 04-17-2025 18:20-0400 Body temperature 99.2 [degF] Dr. Laura Bowden DO Work Phone: [facility] 04-17-2025 18:20-0400 Diastolic blood pressure 90 mm[Hg] Dr. Laura Bowden DO Work Phone: [facility] 04-17-2025 18:20-0400 Heart rate 106 /min Dr. Laura Bowden DO Work Phone: [facility] 04-17-2025 18:20-0400 Respiratory rate 19 /min Dr. Laura Bowden DO Work Phone: [facility] 04-17-2025 18:20-0400 SaO2% (BldA) [Mass fraction] 93 % Dr. Laura Bowden DO Work Phone: [facility] 04-17-2025 18:20-0400 Systolic blood pressure 153 mm[Hg] Dr. Laura Bowden DO Work Phone: [facility] 04-17-2025 18:03-0400 Body height 162.[address] Laura Bowden DO Work Phone: [facility] 04-17-2025 18:03-0400 Body mass index (BMI) [Ratio] 50.6 kg/m2 Dr. Laura Bowden DO Work Phone: [facility] 04-17-2025 18:03-0400 Body weight 133.[address] Laura Bowden DO Work Phone: [facility] 01-12-2024 22:03-0400 Body mass index (BMI) [Ratio] 35.2 kg/m2 Dr. Timbo Snowden Work Phone: [facility] 01-12-2024 22:03-0400 Body weight [address] Timbo Snowden Work Phone: [facility] 01-12-2024 19:36-0400 Body height 162.[address] Timbo Snowden Work Phone: [facility] 01-12-2024 19:36-0400 Body temperature 96.1 [degF] Dr. Timbo Snowden Work Phone: [facility] 01-12-2024 19:36-0400 Diastolic blood pressure 84 mm[Hg] Dr. Timbo Snowden Work Phone: [facility] 01-12-2024 19:36-0400 Heart rate 84 /min Dr. Timbo Snowden Work Phone: [facility] 01-12-2024 19:36-0400 Respiratory rate 18 /min Dr. Timbo Snowden Work Phone: [facility] 01-12-2024 19:36-0400 SaO2% (BldA) [Mass fraction] 94 % Dr. Timbo Snowden Work Phone: [facility] 01-12-2024 19:36-0400 Systolic blood pressure 170 mm[Hg] Dr. Timbo Snowden Work Phone: [facility] 10-19-2023 13:55-0500 Body temperature 97.8 [degF] Dr. Timbo Snowden Work Phone: [facility] 10-19-2023 13:55-0500 Diastolic blood pressure 67 mm[Hg] Dr. Timbo Snowden Work Phone: [facility] 10-19-2023 13:55-0500 Heart rate 63 /min Dr. Timbo Snowden Work Phone: [facility] 10-19-2023 13:55-0500 Respiratory rate 18 /min Dr. Timbo Snowden Work Phone: [phone] [place] [address] 10-19-2023 13:55-0500 SaO2% (BldA) [Mass fraction] 100 % Dr. Timbo Snowden Work Phone: [phone] [place] [address] 10-19-2023 13:55-0500 Systolic blood pressure 163 mm[Hg] Dr. Timbo Snowden Work Phone: [facility] 10-19-2023 05:01-0500 Body mass index (BMI) [Ratio] 45.9 kg/m2 Dr. Timbo Snowden Work Phone: [facility] 10-19-2023 05:01-0500 Body weight 121.[address] Timbo Snowden Work Phone: [facility] 10-18-2023 18:54-0500 Inhaled oxygen flow rate 4 L/min Dr. Timbo Snowden Work Phone: [facility] 10-18-2023 14:28-0500 Body height 162.[address] Timbo Snowden Work Phone: [facility] 10-15-2023 20:00-0500 Body temperature 97.8 [degF] [facility] 10-15-2023 20:00-0500 Diastolic blood pressure 68 mm[Hg] [facility] 10-15-2023 20:00-0500 Heart rate 64 /min [facility] 10-15-2023 20:00-0500 Respiratory rate 16 /min [facility] 10-15-2023 20:00-0500 SaO2% (BldA) [Mass fraction] 97 % [facility] 10-15-2023 20:00-0500 Systolic blood pressure 128 mm[Hg] [facility] 10-15-2023 16:51-0500 Body height 162.56 cm [facility] 10-15-2023 16:51-0500 Body mass index (BMI) [Ratio] 49.6 kg/m2 [facility] 10-15-2023 16:51-0500 Body weight 131.08 kg [facility] Encounters Encounter Date Encounter Type Care Provider Facility Start: 04-17-2025 Admission to [facility] Dr. Tirso Vazquez DO -[facility] Start: 04-17-[address] Laura parekh DO Work Phone: -[facility] Start: 06-07-2024 End: 06-07-2024 ambulatory LAURA BOWDEN Facility:[id number] Start: 03-21-2024 End: 03-21-2024 ambulatory [facility] [place] Comment on above: Chronic pain of righ t knee (Primary Dx); Chronic pain of left knee; Muscle weakness (generalized); Other abnormalities of gait and mobility Start: 03-19-2024 End: 03-19-2024 ambulatory Candace Larry PT, DPT Work Phone: [facility] Comment on above: Chronic pain of righ t knee (Primary Dx); Chronic pain of left knee; Muscle weakness (generalized); Other abnormalities of gait and mobility Start: 03-16-2024 End: 03-16-2024 ambulatory Jacquelyn Odonnell LEASING SPECIALIST Work Phone: [facility] Comment on above: Chronic pain of righ t knee (Primary Dx); Chronic pain of left knee; Muscle weakness (generalized); Other abnormalities of gait and mobility Start: 02-23-2024 End: 02-23-2024 ambulatory Blaze Alejandro PT, DPT [facility] [place] Comment on above: Chronic pain of righ t knee (Primary Dx); Chronic pain of left knee; Muscle weakness (generalized); Other abnormalities of gait and mobility Start: 02-08-2024 End: 02-08-2024 ambulatory Tomas Zena Paradaashlyn MOSLEY [facility] Comment on above: Chronic pain of righ t knee (Primary Dx); Chronic pain of left knee; Muscle weakness (generalized); Other abnormalities of gait and mobility Start: 02-06-2024 End: 02-06-2024 ambulatory Tomas Zena Gerald MOSLEY [facility] Physical [facility] Comment on above: Chronic pain of righ t knee (Primary Dx); Chronic pain of left knee; Muscle weakness (generalized); Other abnormalities of gait and mobility Start: 02-01-2024 End: 02-01-2024 ambulatory Tomas Zena Gerald MOSLEY [facility] Comment on above: Chronic pain of righ t knee (Primary Dx); Chronic pain of left knee; Muscle weakness (generalized); Other abnormalities of gait and mobility Start: 01-30-2024 End: 01-30-2024 ambulatory Tomas Duarte PTA [facility] Comment on above: Chronic pain of righ t knee (Primary Dx); Chronic pain of left knee; Muscle weakness (generalized); Other abnormalities of gait and mobility Start: 01-25-2024 End: 01-25-2024 ambulatory Tomas Zena Paradaashlyn MOSLEY [facility] Physical [facility] Comment on above: Chronic pain of righ t knee (Primary Dx); Chronic pain of left knee; Muscle weakness (generalized); Other abnormalities of gait and mobility Start: 01-23-2024 End: 01-23-2024 ambulatory Tomas Zena [facility] Comment on above: Chronic pain of righ t knee (Primary Dx); Chronic pain of left knee; Muscle weakness (generalized); Other abnormalities of gait and mobility Start: 01-19-2024 End: 01-19-2024 ambulatory Blaze Alejandro PT, DPT [facility] Physical [facility] Comment on above: Chronic pain of righ t knee (Primary Dx); Chronic pain of left knee; Muscle weakness (generalized); Other abnormalities of gait and mobility Start: 01-12-2024 End: 01-12-2024 Emergency department patient visit Dr. Timbo Snowden Work Phone: [facility] Work Phone: Start: 11-11-2023 ambulatory Caden Roy Facility: [facility] Start: 10-28-2023 End: 10-28-[address] Timbo Snowden Work Phone: [facility] Work Phone: Start: 10-28-2023 End: 10-28-2023 ambulatory Caden Roy Facility:[facility] Start: 10-28-2023 End: 10-28-[address] Timbo Snowden Work Phone: [facility] Work Phone: Start: 10-28-2023 End: 10-28-[address] Timbo Snowden Work Phone[facility] Work Phone: Start: 10-28-2023 End: 10-28-2023 ambulatory Brandie JOLLEY Facility:[facility] Start: 10-25-2023 End: 10-25-[address] Timbo Snowden Work Phone: [facility] Work Phone: Start: 10-25-2023 End: 10-25-2023 ambulatory Brandie JOLLEY Facility:[facility] Start: 10-19-2023 Non-patient / Non-visit Dr. Caity Snowden Work Phone: [facility] Work Phone: Start: 10-19-2023 Non-patient / Non-visit Dr. Caity Snowden Work Phone: [facility] Start: 10-18-2023 Non-patient / Non-visit Dr. Caity Snowden Work Phone: [facility] Start: 10-18-2023 Non-patient / Non-visit Dr. Caity Snowden Work Phone: [facility] Work Phone: Start: 10-17-2023 Non-patient / Non-visit Dr. Caity Snowden Work Phone: [facility] Start: 10-17-2023 Non-patient / Non-visit Dr. Caity Snowden Work Phone: [facility] Work Phone: Start: 10-17-2023 Non-patient / Non-visit Dr. Caity Snowden Work Phone: [facility] Start: 10-16-2023 Non-patient / Non-visit Dr. Caity Snowden Work Phone: [facility] Start: 10-15-2023 ambulatory Caden Roy Facility: [facility] Start: 10-15-2023 End: 10-19-2023 Evaluation and management of inpatient [facility] 3 Work Phone: Start: 09-09-2023 End: 09-09-2023 ambulatory LAURA BOWDEN Facility:[id number] Start: 06-17-2023 End: 06-17-2023 ambulatory GISELA LIM Facility:[id number] Start: 06-13-2023 End: 06-13-2023 ambulatory LAURA BOWDEN Facility:[id number] Start: 10-24-2017 End: 10-25-2017 Ambulatory CADEN SAUCEDA (FEL) [facility] Start: 08-29-2017 End: 09-02-2017 Ambulatory CADEN SAUCEDA (FEL) [facility] Procedures Date Procedure Procedure Detail Performing Clinician Start: 04-17-2025 Plain x-ray of elbow Dr. Laura Bowden DO Work Phone: Start: 01-12-2024 Plain x-ray of elbow Dr. Timbo Snowden Work Phone: Start: 01-12-2024 Plain X-ray of shoulder Dr. Timbo hall Work Phone: Start: 01-12-2024 Plain x-ray of wrist Dr. Timbo Snowden Work Phone: Start: 10-28-2023 Radionuclide imaging of liver and/or biliary tract using radioactive isotope Dr. Timbo Snowden Work Phone: Start: 10-18-2023 Total cholecystectomy and exploration of common bile duct Dr. Timbo Snowden Work Phone: Start: 10-17-[address] Timbo Snowden Work Phone: Start: 10-15-2023 CT of abdomen and pelvis with oral contrast Dr. Timbo Snowden Work Phone: Start: 10-15-2023 US scan of gallbladder Start: 10-15-2023 Bacteria identified in Urine by Culture Dr. Timbo Snowden Work Phone: Start: 10-15-[address] Timbo Snowden Work Phone: History of cholecystectomy S/P l aparoscopic cholecystectomy Dr. Timbo Snowden Work Phone: Plan of Treatment Date Care Activity Detail Author Start: 06-13-2026 Diabetes Screening Diabetes Screenin g [facility] Start: 04-17-2025 Decompression of med ovidio nerve Cubital Tunnel Release (Left) [facility] Start: 04-17-2025 [facility] Start: 04-17-2025 Hospital admission, emergency, from emergency room, medical nature [facility] Start: 04-17-2025 Verification routine [facility] Start: 04-17-2025 Admission procedure [facility] Start: 04-17-2025 Microbial culture, b kacy fluid [facility] Start: 04-17-2025 Hepatic function panel [facility] Start: 04-17-2025 Anaerobic Culture Anaerobic Culture [facility] Start: 04-17-2025 Body Fluid Culture Body Fluid Cultur e [facility] Start: 04-17-2025 Microscopic observat ion [Identifier] in Unspecified specimen by Gram stain [facility] Start: 05-07-2024 End: 05-07-2024 ambulatory 05/07/2024 11:00 AM EDT OT/PT/Speech Visit [facility] [place] [address] [facility] [address] Candace Larry, PT, DPT Fina [facility] [place] [address] Aquatic [facility] Physical [facility] Comment on above: Aquatic Start: 03-23-2024 End: 03-23-2024 ambulatory 03/23/2024 2:15 PM EDT OT/PT/Speech Visit [facility] [place] [address] [address] [facility] [address] Lor Johnson, LEASING SPECIALIST PT [facility] [place] Comment on above: PT Start: 03-21-2024 End: 03-21-2024 ambulatory 03/21/2024 10:30 AM EDT OT/PT/Speech Visit [facility] [address] [facility] [address] Tomas Duarte, LEASING SPECIALIST Aquatic [facility] Physical [facility] Comment on above: Aquatic Start: 03-19-2024 End: 03-19-2024 ambulatory 03/19/2024 10:00 AM EDT OT/PT/Speech Visit [facility] [address] [facility] [address] Lor Johnson, LEASING SPECIALIST PT [facility] Comment on above: PT Start: 02-24-2024 End: 02-24-2024 ambulatory 02/24/2024 10:00 AM EDT OT/PT/Speech Visit [facility] [place] [address] [address] [facility] [address] Tomas Duarte, LEASING SPECIALIST Aquatic [facility] [place] Comment on above: Aquatic Start: 02-23-2024 End: 02-23-2024 ambulatory 02/23/2024 10:45 AM EDT OT/PT/Speech Visit [facility] [place] [address] [address] [facility] [address] Alejandro, Blaze W, PT, DPT progress summary [facility] [place] Comment on above: progress summary Start: 02-08-2024 End: 02-08-2024 ambulatory 02/08/2024 10:30 AM EDT OT/PT[facility]ech [facility] [address] [facility] [address] Tomas Duarte, LEASING SPECIALIST AQUATIC [facility] [place] Comment on above: AQUATIC Start: 02-06-2024 End: 02-06-2024 ambulatory 02/06/2024 10:30 AM EDT OT/PT/Speech [facility] [address] [place] [address] Tomas Duarte, LEASING SPECIALIST AQUATIC [facility] [place] Comment on above: AQUATIC Start: 02-01-2024 End: 02-01-2024 ambulatory 02/01/2024 10:30 AM EDT OT/PT/Speech Visit [facility] [address] [place] [address] Tomas Duarte, LEASING SPECIALIST AQUATIC [facility] [place] Comment on above: AQUATIC Start: 01-30-2024 End: 01-30-2024 ambulatory 01/30/2024 8:00 AM EDT OT/PT/Speech Visit [facility] [address] [place] [address] Tomas Duarte, LEASING SPECIALIST AQUATIC [facility] [place] Comment on above: AQUATIC Start: 01-25-2024 End: 01-25-2024 ambulatory 01/25/2024 9:30 AM EDT OT/PT/Speech Visit [facility] [address] [place] [address] Tomas Duarte, LEASING SPECIALIST AQUATIC [facility] [place] Comment on above: AQUATIC Start: 01-12-2024 [facility] Start: 10-19-2023 Patient discharge [facility] Start: 10-17-2023 Serum immunofixation [facility] Start: 10-15-2023 Assessment of risk o f venous thromboembolism [facility] Start: 10-15-2023 Care regimes management [facility] Start: 10-15-2023 Fall prevention [facility] Start: 10-15-2023 Inhalation therapy procedure [facility] Start: 10-15-2023 Insertion of cathete r into peripheral vein [facility] Start: 10-15-2023 Introduction of urin ming catheter [facility] Start: 10-15-2023 Measuring intake and output [facility] Start: 10-15-2023 Notification of physician [facility] Start: 10-15-2023 Providing care accor ding to standard [facility] Start: 10-15-2023 Provision of activit y privileges [facility] Start: 10-15-2023 Referral to gastroenterology service [facility] Start: 10-15-2023 Referral to general surgeon [facility] Start: 10-15-2023 Referral to occupati onal therapist [facility] Start: 10-15-2023 Referral to service [facility] Start: 10-15-2023 [facility] Start: 10-15-2023 Following clinical p athway protocol [facility] Start: 10-15-2023 Hospital admission, emergency, from emergency room, medical nature [facility] Start: 10-15-2023 Verification routine [facility] Start: 10-15-2023 Admission procedure [facility] Start: 10-15-2023 CT of abdomen and pe lvis with oral contrast Abdomen/Pel W ORAL Cont Only [facility] Start: 10-15-2023 [facility] Start: 10-15-2023 [facility] Start: 10-15-2023 Bacteria identified in Urine by Culture Urine Culture [facility] Start: 10-15-2023 Patient referral to dietitian [facility] Start: 10-03-2023 Advance Directive Discussion Advance Directive Discussion [facility] Start: 10-03-2023 Behavioral Health Screening Be havioral Health Screening [facility] Start: 2012 Screening for osteoporosis Bon e Density Screening [facility] Start: 2007 RSV Vaccine (1 - 1-d ose 60+ series) RSV Vaccine (1 - 1-dose 60+ series) [facility] Start: 1966 Shingrix Vaccine (1 of 2) Sandhu grix Vaccine (1 of 2) [facility] Start: 1966 Urine microalbumin profile DTa P,Tdap,Td Vaccine (1 - Tdap) [facility] Start: 1965 Hepatitis C screening Hepatitis C Sc tracy [facility] Start: 1958 Screening for malign ant neoplasm of cervix Cervical Cancer Screening [facility] Start: 1952 Covid-19 Vaccine (#1) Covid-19 Vacci ne (#1) [facility] Alanine aminotransfe rase [Enzymatic activity/volume] in Serum or Plasma [facility] Albumin [Mass/volume ] in Serum or Plasma [facility] Alkaline phosphatase [Enzymatic activity/volume] in Serum or Plasma [facility] Bacteria identified in Body fluid by Culture [facility] Bacteria identified in Unspecified specimen by Anaerobe culture [facility] Bilirubin, total measurement [facility] Bilirubin.direct [Mass/volume] in Serum or Plasma [facility] Cell count of synovi al fluid [facility] Hemoglobin A1c/Hemoglobin.total in Blood [facility] Measurement of immunoglobulin A in serum specimen [facility] Pathologist review o f results [facility] Patient Education ED Contusion, Upper Extremity [facility] Work Phone: Patient referral [facility] Work Phone: Red blood cell count [facility] Specimen processing [facility] Synovial fluid examination [facility] Total protein measurement [facility] White blood cell count [facility] Payers Date Payer Category Payer Medicare [id number] 2023 Self-pay 2022 Medicare UHC MEDICARE UHC MEDICARE ADVANTAGE PPO [id number] 2022-Present [phone] [address] [address] [place] [address] PPO [id number] 2022 Unknown [id number] Unknown [id number] Unknown [id number] [id number] Unknown [id number] [id number] Unknown [id number] [id number] Unknown [id number] [id number] Unknown [id number] [id number] Unknown [id number] [id number] Unknown [id number] [id number] Unknown [id number] [id number] Unknown [id number] [id number] Unknown [id number] [id number] Unknown [id number] [id number] Unknown [id number] [id number] Unknown [id number] [id number] Unknown [id number] [id number] Unknown [id number] [id number] Unknown [id number] Social History Date Type Detail Facility Start: 10-15-2023 End: 01-12-2024 Tobacco smoking status ORIS Unknown if ever smoked [facility] Start: 1945 Sex Assigned At Female [facility] Start: 10-24-2017 End: 04-17-2025 Tobacco smoking status NHIS Ex-smoker [facility] End: 10-03-1994 History of tobacco use Current smoker [facility] End: 10-03-1994 History of tobacco use Cigarette Smoker [facility] Start: 10-24-2017 Tobacco use and exposure Smokeless tobacco non-user [facility] Start: 08-31-2020 End: 01-19-2024 History of Social function [facility] Start: 08-31-2020 End: 01-19-2024 Tobacco use panel [facility] National Score (1-100), lower number is lower risk 50 [facility] Start: 1945 Sex Assigned At Not on file [facility] NEGATED: Highlighted row [facility] NEGATED: Highlighted row Not [facility] Medical Equipment Procedure Code Equipment Code Equipment Origin al Text Equipment Identifier Dates Total cholecystectomy with exploration of common bile duct Plant polysaccharide haemostatic agent, bioabsorbable [id number] FDA Start: 10-18-2023 Goals Date Patient Goal Desired Activity /State Functional Status Date Assessment Result Facility 10-19-2023 Functional status Ambulates [facility] Work Phone: Mental Status Date Assessment Result Facility 10-19-2023 Cognitive function Voice/Name [facility] Work Phone: Clinical Notes 10-15-2023 to 04-17-2025 Note Date & Type Note Facility 04-17-2025 Consult note [facility] 04-17-2025 Discharge summary [facility] 04-17-2025 Radiology Diagnostic study note [facility] Imaging Services [address], [place] [address] Elbow min 3 Views MR#: [id number] Acct: [id number] Name: PENNY MCKEON Rep #: [id number] : 1945 F 79 From: Faizan Myers MD PCP: Dr. Laura Bowden, DO Status: REG E R Study:Elbow min 3 Views Date of Exam: Exam# [id number] Ordering Dr: Asuncion Wise MD PROCEDURE: ELBOW MIN 3 VIEWS 04/17/2025 REASON FOR EXAM: ATRAUMATIC PAIN TECHNIQUE: ELBOW MIN 3 VIEWS COMPARISON: Comparison is made with prior study dated January 12, 2024. FINDINGS: Bones: Degenerative changes. Joints: Normal alignment. Mild degenerative changes. Soft tissues: Soft tissue swelling. Other: RAD/Elbow min 3 Views IMPRESSION: No fracture or dislocation. Degenerative changes at the elbow joint. Reading Location: [facility] CC: Dr. Sanford Wise MD; Dr. 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 Laura Bowden, Status:REG E R Location: ED HPI History of Present Illness HPI Narrative: 79-year-old female history of CKD, hypertension and diabetes. She is right-handdominant. Complaining of atraumatic left elbow pain since Tuesday evening. Gradual onset. No fall or any other known injury. No fever or chills. No prior history of elbow pain like this or prior surgery to her left arm. Chief Complaint: Upper Extremity Injury Informant: patient Occured/Mechanism Mechanism/Context: No injury and No blunt trauma Onset/Context/Timing Onset: Days Context: Gradual Onset Timing: Continuous Quality of Pain: Dull and Aching Current Severity: Moderate Maximum Severity: Moderate Associated Symptoms Associated Symptoms: Negative for Parasthesia, Weakness or Loss of Funtion Narrative Narrative: 79-year-old female [id number] history of diabetes complains of atraumatic left elbow pain. No prior history or surgery to that arm. Prior similar symptoms: No Recent Illness/Hospitalization: No PFSH PFS Medical History Hypothyroidism Anxiety and depression Allergic rhinitis CKD (chronic kidney disease) Morbid obesity Hyperlipidemia Hypertension Type 2 diabetes mellitus Home Medications ?Medication ?Instructions ?Recorded ?Last Taken ?Type aspirin 81 mg tablet,delayed 81 mg PO DAILY Blood thin ner 10/15/23 Unknown History release (Adult Aspirin Regimen) atorvastatin 20 mg tablet 20 mg PO DAILY cholesterol 0 10/15/23 Unknown History carvedilol 25 mg tablet 25 mg PO Q12H Blood pres Unknown History cetirizine 10 mg tablet 10 mg PO DAILY Allergies Unknown History cholestyramine-aspartame 4 gram 1 ea PO DAILY choleste rol 10/15/23 Unknown History oral powder for susp in a packet (Cholestyramine Light) empagliflozin 25 mg tablet 25 mg PO DAILY Glucose cont rol 10/15/23 Unknown History (Jardiance) ergocalciferol (vitamin D2) 1,250 1,250 mcg PO DAILY V it D 10/15/23 Unknown History mcg (50,000 unit) capsule escitalopram oxalate 20 mg tablet 20 mg PO DAILY Anxie ty 10/15/23 Unknown History fenofibrate nanocrystallized 145 145 mg PO DAILY sima sterol 10/15/23 Unknown History mg tablet levothyroxine 50 mcg tablet 50 mcg PO DAILY thyroid Unknown History mirabegron 25 mg tablet,extended 25 mg PO Q24H Bladder 10/15/23 Unknown History release 24 hr (Myrbetriq) montelukast 10 mg tablet 10 mg PO DAILY Wheezing 10/03 12/24 Unknown History niacin 1,000 mg tablet,extended 1,000 mg PO DAILY chol esterol 10/15/23 Unknown History release 24 hr oxybutynin chloride 10 mg 10 mg PO DAILY Bladder 10/15 Unknown History tablet,extended release 24 hr sitagliptin phosphate 50 1 tab PO DAILY Glucose 10/15 Unknown History mg-metformin 1,000 mg tablet (Octalejandrot) amoxicillin 875 mg-potassium 1 tab PO Q12H 5 days #10 tabs 10/19/23 Unknown Rx clavulanate 125 mg tablet hydrocodone-acetaminophen 5-325mg 1 tab PO Q6H PRN maida n 3 days #10 10/19/23 Unknown Rx 5mg-325mg tabs hydrocodone-acetaminophen 5-325mg 1 tab PO Q6H PRN PRN Pain 3 days 01/12/24 Unknown Rx 5mg-325mg #10 TABLETS Allergy/AdvReac Type Severity Reaction Status Date / Time No Known Allergies Allergy Verified 01/12/24 19:36 Family History Mother Cancer Diabetes Father Heart disease Surgical History S/P laparoscopic cholecystectomy S/P left knee arthroscopy Social History household members: none Smoking Status: Former smoker how long ago did patient quit smoking: Smoked age 22-until 30 years old, 1 ppd until quit. alcohol intake: never substance use type: does not use ROS ROS ED ROS Narrative Left arm pain. Constitutional Constitutional ED: Denies chills or fever(s) Eyes Eyes: Denies blurry vision ENT ENT ED: Denies ear pain Cardiovascular Cardiovascular: Denies chest pain Respiratory/Chest Respiratory/Chest: Denies cough or dyspnea Gastrointestinal Gastrointestinal: Denies abdominal pain Genitourinary Genitourinary ED: Denies dysuria or hematuria Musculoskeletal Musculoskeletal: Denies back pain or myalgias Integumentary Denies abscess, Abrasions or rash Neurologic Neurologic: Denies headache(s) Psychiatric Psychiatric: Denies anxiety or depression Endocrine Endocrinology: Denies cold intolerance Hematologic/Lymphatic Hematologic/Lymphatic: Denies easy bleeding, easy bruising or lymphadenopathy Allergic/Immunologic Allergic/Immunologic ED: Denies mouth swelling, tongue swelling or urticaria EXAM Physical Exam Narrative Exam Narrative: 79-year-old female sitting upright in bed. No acute distress. Vital signs stable afebrile. Initial blood pressure 160/103. She does not appear to be septic toxic. No acute distress. Is complaining of left elbow pain. H EENT exam pupils are reactive light. Moist pink membranes. Neck nontender no JVD. No lymphadenopathy. Lungs good auscultation bilaterally. Heart regular rhythm rate about 95 no murmur. Abdomen soft nontender. Moving all 4 extremities. Her left elbow is tender to palpation. Warm to the touch. No cellulitis. She has limited flexion extension and supination and pronation of the left elbow dueto pain. She has a normal radial pulse. She has normal shot dropper strength and sensation. The distal forearm and hand are nontender the shoulder is nontender. There is no lymphangitic streaking. There is no axillary lymphadenopathy. Neurologically she is awake alert. No focal motor deficits. Const Vital Signs: 04/17/25 14:18 Temperature 98 F Temperature Source Oral Pulse Rate 98 Respiratory Rate 18 Blood Pressure 162/103 H Blood Pressure Mean 122 Pulse Ox 97 Oxygen Delivery Method Room Air Positive well nourished and well developed; Negative for cachectic, contracturesor unkempt General Appearance ED: well developed and NAD; Negative for unkempt, cachectic, contractures, cyanotic or diaphoretic Nutritional Appearance: Negative for cachectic HEENT Reports moist mucous membranes normocephalic and atraumatic Eyes PERRL and EOMs intact bilaterally Neck full ROM and supple General: Negative for tenderness Chest Wall inspection of chest normal and palpation of chest normal Resp normal respiratory effort and clear to auscultation bilaterally Cardio regular rate, regular rhythm, S1 normal heart sound, S2 normal heart sound and no murmurs GI non-tender and no masses Palpation: soft; Negative for tender, guarding or rebound tenderness present Back/Spine no CVA tenderness General Back: Negative for CVA tenderness Cervical Spine: Negative for cervical spine tenderness Thoracic Spine / Upper Back: Negative for thoracic spinal tenderness Lumbar Spine / Lower Back: Negative for lumbar spinal tenderness Extremity normal to inspection and full ROM Extremity Narrative: Left elbow tender. Limited flexion extension and limited supination and pronation due to pain. Warm to the touch. No significant swelling. No lymphangitic streaking. No axillary lymphadenopathy. Left hand normal touch sensation. Normal shot dropper strength. Normal radial pulse. General Extremety ED: Negative for edema General Extremity: Negative for edema Neuro oriented x3, CN's II-XII intact bilaterally, moves all extremities, no focal motor deficits and no sensory deficits noted Sensorium / Orientation: alert, oriented to person, oriented to place and oriented to time Motor Exam: strength 5/5 throughout Psych mental status grossly normal Appearance: Negative for unkempt Mood & Affect: Negative for depressed, anxious or tearful Skin General Skin Exam: Negative for petechiae Lesions: no lesions Rashes: no rashes Trauma: no lacerations or abrasions MDM MDM MDM Narrative Medical decision making narrative: 79-year-old female complain of atraumatic left elbow pain. Concern for cellulitis versus septic joint versus gout. She has had no fall injury or trauma. X-ray being obtained plus labs. She will be given morphine for pain and Zofran. I attempted a needle aspiration of the left elbow joint. Could not obtain any fluid. Area was cleaned off well prior to the attempt. Patient tolerated it well. I spoke to Dr. Shiva Vazquez orthopedics on-call. He is in evaluate the patient at this time at 4:30 PM. He is going to attempt to tap the elbow and possible even the wrist. The orthopedic physician Dr. Shiva Vazquez was able to aspirate a small amount offluid from the left elbow. He describes it as turbid. Patient was started on IV Zosyn and vancomycin. He sent the fluid to the lab. He plans on taking him to the OR for a washout of the left elbow. She is going to be admitted to the hospitalist. History & Record Review Discussion w/independent historian: Patient and Family Additional record(s) reviewed:: Prior inpatient record, Prior outpatient record,Prior ED visit and Prior labs Lab Data Attestation: I reviewed the patient's lab results. Lab results narrative: CBC shows an elevated white count of 16.8 H&H 14 and 38. Sed rate is elevated 51. Uric acid is 7.8. Glucose was 225. Electrolytes show an anion gap of 19. Normal BUN of 11 creatinine 0.9. C-reactive protein is elevated at 119. Radiography Diagnostic Testing: Left elbow x-ray, 5 films, interpreted by myself and the radiologist shows chronic changes. No fracture. No dislocation. No acute process. Discharge Plan Triage Chief Complaint: Upper Extremity Injury ED Provider: Sanford Wise Dx/Rx/DC Orders Clinical Impression: Nontraumatic pain and swelling of elbow, Leukocytosis, History of diabetes mellitus, Septic arthritis of elbow, left Prescriptions: No Action carvedilol 25 mg tablet 25 mg PO Q12H atorvastatin 20 mg tablet 20 mg PO DAILY niacin 1,000 mg tablet extended release 24 hr 1,000 mg PO DAILY cetirizine 10 mg tablet 10 mg PO DAILY Patient Comments: TAKE ONE TABLET BY MOUTH EVERY DAY IN THE MORNING oxybutynin chloride 10 mg tablet extended release 24hr 10 mg PO DAILY levothyroxine 50 mcg tablet 50 mcg PO DAILY montelukast 10 mg tablet 10 mg PO DAILY ergocalciferol (vitamin D2) 1,250 mcg (50,000 unit) capsule 1,250 mcg PO DAILY Patient Comments: TAKE 1 CAPSULE (45026 UNITS) BY MOUTH ONCE A WEEK escitalopram oxalate 20 mg tablet 20 mg PO DAILY cholestyramine-aspartame [Cholestyramine Light] 4 gram powder in packet 1 ea PO DAILY Patient Comments: DISSOLVE 1 PACKET IN 2 TO 6 OUNCES OF WATER OR NONCARBONATED BEVERAGE TWO TIMES A DAY BEFORE MEALS AND DRINK Rx Instructions: orally daily; fenofibrate nanocrystallized 145 mg tablet 145 mg PO DAILY Janumet 50-1,000 mg tablet 1 tab PO DAILY Myrbetriq 25 mg tablet extended release 24 hr 25 mg PO Q24H Patient Comments: TAKE ONE TABLET BY MOUTH EVERY DAY SWALLOWING WHOLE WITH WATER. DO NOT CRUSH CHEW AND/OR DIVIDE. Jardiance 25 mg tablet 25 mg PO DAILY aspirin [Adult Aspirin Regimen] 81 mg tablet,delayed release (DR/EC) 81 mg PO DAILY amoxicillin-pot clavulanate 875-125 mg tablet 1 tab PO Q12H 5 Days Qty: 10 0RF hydrocodone-acetaminophen 5-325 mg tablet 1 tab PO Q6H PRN (Reason: pain) 3 Days Qty: 10 0RF hydrocodone-acetaminophen [hydrocodone-acetaminophen] 5-325 mg tablet 1 tab PO Q6H PRN PRN (Reason: Pain) 3 Days Qty: 10 0RF Primary Care Provider: Laura Bowden Referrals: Laura Bowden DO [Primary Care Provider] - Print Language: Cymraes Disposition Disposition: Acute Care Hospital [facility] What to do if you have Problems For any increased pain, shortness of breath, bleeding, nausea or vomiting, chestpain, or any unexpected problems, contact your Primary Care Provider. Call [facility] ([phone]) or report to the closest Emergency Room. Call 911 if necessary. 04/17/25 [id number] <Electronically signed by Sanford Wise MD> Cosigner Signature (if applicable): CC: Dr. Laura Bowden DO ~ Signed [facility] Work Phone: 1(225) 310-933406-19-2024 History of Present illness Narrative* Tomas Duarte, LEASING SPECIALIST - 03/21/2024 10:56 AM EDT Program_ID:[id number] Access Code: [email or web address] URL: [email or web address] Date: 03-21-2024 Prepared By: TOMAS DUARTE Program Notes Exercises - Forward Walking - 1 x daily - 7 x weekly - 3 sets - 10 reps - Backward Walking - 1 x daily - 7 x weekly - 3 sets - 10 reps - Side Stepping - 1 x daily - 7 x weekly - 3 sets - 10 reps - Standing March at Pool Wall - 1 x daily - 7 x weekly - 3 sets - 10 reps - Heel Toe Raises at Pool Wall - 1 x daily - 7 x weekly - 3 sets - 10 reps - Standing Hip Abduction Adduction at Pool Wall - 1 x daily - 7 x weekly - 3 sets - 10 reps - Standing Hip Flexion Extension at Pool Wall - 1 x daily - 7 x weekly - 3 sets - 10 reps - Standing hip extension at pool wall - 1 x daily - 7 x weekly - 3 sets - 10 reps - Standing Knee Flexion - 1 x daily - 7 x weekly - 3 sets - 10 reps - Squats on step with upper extremity support - 1 x daily - 7 x weekly - 3 sets - 10 reps - Standing hamstring stretch at step in pool - 1 x daily - 7 x weekly - 3 sets - 10 reps - Standing bilateral gastroc stretch with step in the pool - 1 x daily - 7 x weekly - 3 sets - 10 reps - Forward step up in pool with railing - 1 x daily - 7 x weekly - 3 sets - 10 reps - also ski and legs apart/together - 1 x daily - 7 x weekly - 1 sets - 1 reps * Tomas Duarte PTA - 03/21/2024 10:38 AM EDT Episode Visit Count: 11 Therapist That Will Accept/Oversee The Plan Of Care: Candace Larry PT, DPT Start of Care Date: 01/19/24 Plan of Care Certification Date: 01/19/24 Next Certification Due Date: 04/17/24 Patient Identified by Name and Date of : Yes REHABILITATION AND SPORTS THERAPY PHYSICAL THERAPY TREATMENT NOTE ASSESSMENT: Penny Mckeon tolerated the session with decreased endurance, fatigue, and expected muscle soreness. She demonstrated difficulty with the knee flexion exercise due to pain. She was provided with written instructions for home exercise program. The patient will be discharged and continuewith open pool. PLAN FOR NEXT VISIT: see PT discharge summary SUBJECTIVE: Penny states she has signed up for open pool. Pain: Pain Pain Level: 7 Pain Location: Knee - Left Additional Pain Information : Location 2 Pain Level 2: 4 Pain Location 2: Knee - Right Post Treatment Pain Post Treatment Pain Level: No Change Post Treatment Pain Location: Knee - Left, Knee - Right OBJECTIVE MEASURES WITH LEVEL OF FUNCTION: She ambulates with straight cane No objective measures taken during this encounter. TREATMENT: Aquatic Therapy: Entered the pool: Forward on stairs Entered the pool assist level: [place], With rail Entered the pool step pattern: Step to step Exited the pool: Forward on stairs Exited the pool assist level: [place], With rail Exited the pool step pattern: Step to step Aquatic Therapy (57176): 5 1: walking forward, backward, lateral x 4 each 2: gastroc/hamstring/knee flexion stretches on the steps x 3 holding 20 seconds each 3: step ups/squats on the steps x 15 each 4: 3-way hip, marching, heel raises, knee flexion w/ hydro-tone x 15 each 5: unloaded ski, bicycle, hip abduction/adduction x 5 minutes each Abbreviation Mera: BA = buoyancy assisted BR = buoyancy resisted BS = buoyancy supported reps = repetitions HEP = home exercise program Skilled Intervention: Patient was educated in proper exercise technique and purpose for exercises. Skilled judgment was provided in selection of appropriate interventions. Correct performance of exercises was facilitated with verbal cueing. Home Exercise Program Assigned: 1: Access Code: [email or web address] URL: [email or web address] Date: 03/21/2024 Prepared by: TOMAS DUARTE Exercises - Forward Walking - 1 x daily - 7 x weekly - 3 sets - 10 reps - Backward Walking - 1 x daily - 7 x weekly - 3 sets - 10 reps - Side Stepping - 1 x daily - 7 x weekly - 3 sets - 10 reps - Standing March at Pool Wall - 1 x daily - 7 x weekly - 3 sets - 10 reps - Heel Toe Raises at Pool Wall - 1 x daily - 7 x weekly - 3 sets - 10 reps - Standing Hip Abduction Adduction at Pool Wall - 1 x daily - 7 x weekly - 3 sets - 10 reps - Standing Hip Flexion Extension at Pool Wall - 1x daily - 7 x weekly - 3 sets - 10 reps - Standing hip extension at pool wall - 1 x daily - 7 x weekly - 3 sets - 10 reps - Standing Knee Flexion - 1 x daily - 7 x weekly - 3 sets - 10 reps - Squats on step with upper extremity support - 1 x daily - 7 x weekly - 3 sets - 10 reps - Standing hamstring stretch at step in pool - 1 x daily - 7 x weekly - 3 sets - 10 reps - Standing bilateral gastroc stretch with step in the pool - 1 x daily - 7 x weekly - 3 sets - 10 reps - Forward step up in pool with railing - 1 x daily - 7 x weekly - 3 sets - 10 reps - also ski and legs apart/together - 1 x daily - 7 x weekly - 1 sets - 1 reps - 5 minutes hold Billing Aquatic Therapy Treatment Minutes: 30 Skilled Treatment Time Minutes (timed and untimed codes): 30 Total Session Time (minutes): 45 Session Start Time : 1039 Session Stop Time : 1124 Patient participated in 30 minutes of timed skilled physical therapy intervention Tomas Duarte PTA [facility] NoteHNO ID: [id number] Author: TOMAS DUARTE PTA Service: ? Author Type: Millinery Department Manager Type: Progress Notes Filed: 03/21/2024 11:29 Note Text: Episode Visit Count: 11 Therapist That Will Accept/Oversee The Plan Of Care: Candace Larry, PT, DPT Start of Care Date: 01/19/24 Plan of Care Certification Date: 01/19/24 Next Certification Due Date: 04/17/24 Patient Identified by Name and Date of : Yes REHABILITATION AND SPORTS THERAPY PHYSICAL THERAPY TREATMENT NOTE ASSESSMENT: Penny Mckeon tolerated the session with decreased endurance, fatigue, and expected muscle soreness. She demonstrated difficulty with the knee flexion exercise due to pain. She was provided with written instructions for home exercise program. The patient will be discharged and continue with open pool. PLAN FOR NEXT VISIT: see PT discharge summary SUBJECTIVE: Penny states she has signed up for open pool. Pain: Pain Pain Level: 7 Pain Location: Knee - Left Additional Pain Information : Location 2 Pain Level 2: 4 Pain Location 2: Knee - Right Post Treatment Pain Post Treatment Pain Level: No Change Post Treatment Pain Location: Knee - Left, Knee - Right OBJECTIVE MEASURES WITH LEVEL OF FUNCTION: She ambulates with straight cane No objective measures taken during this encounter. TREATMENT: Aquatic Therapy: Entered the pool: Forward on stairs Entered the pool assist level: [place], With rail Entered the pool step pattern: Step to step Exited the pool: Forward on stairs Exited the pool assist level: [place], With rail Exited the pool step pattern: Step to step Aquatic Therapy (63109): 5 1: walking forward, backward, lateral x 4 each 2: gastroc/hamstring/knee flexion stretches on the steps x 3 holding 20 seconds each 3: step ups/squats on the steps x 15 each 4: 3-way hip, marching, heel raises, knee flexion w/ hydro-tone x 15 each 5: unloaded ski, bicycle, hip abduction/adduction x 5 minutes each Abbreviation Mera: BA = buoyancy assisted BR = buoyancy resisted BS = buoyancy supported reps = repetitions HEP = home exercise program Skilled Intervention: Patient was educated in proper exercise technique and purpose for exercises. Skilled judgment was provided in selection of appropriate interventions. Correct performance of exercises was facilitated with verbal cueing. Home Exercise Program Assigned: 1: Access Code: [email or web address] URL: [email or web address] Date: 03/21/2024 Prepared by: TOMAS DUARTE Exercises - Forward Walking - 1 x daily - 7 x weekly - 3 sets - 10 reps - Backward Walking - 1 x daily - 7 x weekly - 3 sets - 10 reps - Side Stepping - 1 x daily - 7 x weekly - 3 sets - 10 reps - Standing March at Pool Wall - 1 x daily - 7 x weekly - 3 sets - 10 reps - Heel Toe Raises at Pool Wall - 1 x daily - 7 x weekly - 3 sets - 10 reps - Standing Hip Abduction Adduction at Pool Wall - 1 x daily - 7 x weekly - 3 sets - 10 reps - Standing Hip Flexion Extension at Pool Wall - 1 x daily - 7 x weekly - 3 sets - 10 reps - Standing hip extension at pool wall - 1 x daily - 7 x weekly - 3 sets - 10 reps - Standing Knee Flexion - 1 x daily - 7 x weekly - 3 sets - 10 reps - Squats on step with upper extremity support - 1 x daily - 7 x weekly - 3 sets - 10 reps - Standing hamstring stretch at step in pool - 1 x daily - 7 x weekly - 3 sets - 10 reps - Standing bilateral gastroc stretch with step in the pool - 1 x daily - 7 x weekly - 3 sets - 10 reps - Forward step up in pool with railing - 1 x daily - 7 x weekly - 3 sets - 10 reps - also ski and legs apart/together - 1 x daily - 7 x weekly - 1 sets - 1 reps - 5 minutes hold Billing Aquatic Therapy Treatment Minutes: 30 Skilled Treatment Time Minutes (timed and untimed codes): 30 Total Session Time (minutes): 45 Session Start Time : 1039 Session Stop Time : 1124 Patient participated in 30 minutes of timed skilled physical therapy intervention Tomas Duarte [facility]06-17-2024 NoteHNO ID: [id number] Author: CANDACE LARRY PT DPT Service: ? Author Type: Physical Therapist Type: Progress Notes Filed: 03/20/2024 11:02 Note Text: Episode Visit Count: 10 Therapist That Will Accept/Oversee The Plan Of Care: Candace Larry PT, DPT Start of Care Date: 01/19/24 Plan of Care Certification Date: 01/19/24 Next Certification Due Date: 04/17/24 Patient Identified by Name and Date of : Yes REHABILITATION AND SPORTS THERAPY PHYSICAL THERAPY PROGRESS REPORT PLAN OF CARE UPDATE: Penny Mckeon demonstrates no significant changes in function since her previous progress update. She has new goals added to address independence with community-based pool exercises . Patient continues to present with impairments in gait, independence in exercise, overall function, strength, and symptom management that interfere with standing, walking, rising from a chair, walking in the house, walking in the community, stair negotiation . Current prognosis is Good due to: positive past response to therapy . She will benefit from continued skilled therapy services to meet the updated goals for this plan of care as noted below. Goals for Episode of Care: created on 01/19/24 through 03/01/2402/22; 03/19 Patient report standing/ambulation tolerance of up to 60 minutes to demonstrate improvement in standing duration for functional mobility and activities. - Not Met [place] in home exercise program. Status: Ongoing Patient will decrease pain to 3/10 with functional activities to allow patient to improve ambulation and standing tolerance for ADLs. Status: Ongoing Patient will increase active ROM of bilateral knee flexion and extension to 0-105 to allow pt to to improve gait mechanics / gait pattern . Status: Not formally assessed this date Patient will demonstrate increase in bilateral lower extremity strength to 5/5 during manual muscle testing in order to improve function for basic self-care tasks and moderate to heavy functional tasks. Status: Not formally assessed this date Patient will Improve Timed Up and Go to less than 12 seconds to demonstrate decreased risk of falling Status: Ongoing Patient will improve 5 time sit to stand to demonstrate improvement in functional lower extremity strength. Status: Ongoing Patient will be independent with aquatic program and transition to a community pool and Patient will display decreased acute or intense pain and be able to transition to tolerating land based program - Goal Met Patient will perform exercise in a community-based pool independently for 6-8 weeks, following which she will switch to a land-based PT regimen to further improve strength. Status: New 03/19/24 Patient Goals: To reduce her pain. - ongoing Planned Interventions, Frequency, and Duration: (2 visits - one visit in the pool and one visit after the pt has completed 6-8wks of community-based pool exercise.), 8 weeks Total Number of Visits Planned: 12 (Today is 07/14) Patient to be seen for Aquatic PT (79091), Therapeutic activities (90105), Therapeutic exercise (84951), Neuromuscular re-education (90510), Gait Training (44174), Manual therapy (04834) PLAN FOR NEXT VISIT: Ensure the 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ble to complete all aquatic exercises. Print out detailed HEP and provide to pt for reference when exercising in community-based pool. SUBJECTIVE: Pt states that her knee soreness is a little bit worse, but she expected this soreness after the exercises she performwed. Pt remarks I felt good when I was in the pool - I had real good results from that. Then we went on vacation for a week and I didn't do anything. After I came back I felt like I was at square one. She remarks that she has a hard time recalling her exercisesthat she did in the pool at the end of January.. Functional Limitations: standing, walking, rising from a chair, walking in the house, walking in the community, stair negotiation Pain: Pain Pain Level: 7 Pain Location: Knee - Left Additional Pain Information : Location 2 Pain Level 2: 4 Pain Location 2: Knee - Right OBJECTIVE MEASURES WITH LEVEL OF FUNCTION: Functional Performance Test Results 5 Times Sit to Stand Test : 15.12 sec Timed Up and Go (sec): 17.72 sec Timed Up and Go - Condition 2 (sec) : 20 TREATMENT: Therapeutic Activity: 1: Obtained objective and subjective information for today's progress report. Reviewed and updated pt goals as well. 2: Educated on the change to plan of care 3: Educated on the benefit of land-based exercises. Advised the pt to perform aquatic exercises in the gym environment to improve baseline strength and increase tolerance to land-based activity. Set pt up with fitness staff to establish membership through [employer] Skilled Intervention: Activity progression based on professional judgment. Education as noted above Billing Therapeutic Activity Treatment Min (more content not included)...[facility]06-17-2024 History of Present illness Narrative* Candace Larry PT, DPT - 03/19/2024 2:14 PM EDT Episode Visit Count: 10 Therapist That Will Accept/Oversee The Plan Of Care: Candace Larry PT, DPT Start of Care Date: 01/19/24 Plan of Care Certification Date: 01/19/24 Next Certification Due Date: 04/17/24 Patient Identified by Name and Date of : Yes REHABILITATION AND SPORTS THERAPY PHYSICAL THERAPY PROGRESS REPORT PLAN OF CARE UPDATE: Penny Mckeon demonstrates no significant changes in function since her previous progress update. She has new goals added to address independence with community-based pool exercises . Patient continues to present with impairments in gait, independence in exercise, overall function, strength, and symptom management that interfere with standing, walking, rising from a chair, walking in the house, walking in the community, stair negotiation . Current prognosis is Good due to: positive past response to therapy . She will benefit from continued skilled therapy services to meet the updated goals for this plan of care as noted below. Goals for Episode of Care: created on 01/19/24 through 03/01/2402/22; 03/19 Patient report standing/ambulation tolerance of up to 60 minutes to demonstrate improvement in standing duration for functional mobility and activities. - Not Met [place] in home exercise program. Status: Ongoing Patient will decrease pain to 3/10 with functional activities to allow patient to improve ambulation and standing tolerance for ADLs. Status: Ongoing Patient will increase active ROM of bilateral knee flexion and extension to 0-105 to allow pt to to improve gait mechanics / gait pattern . Status: Not formally assessed this date Patient will demonstrate increase in bilateral lower extremity strength to 5/5 during manual muscle testing in order to improve function for basic self-care tasks and moderate to heavy functional tasks. Status: Not formally assessed this date Patient will Improve Timed Up and Go to less than 12 seconds to demonstrate decreased risk of falling Status: Ongoing Patient will improve 5 time sit to stand to demonstrate improvement in functional lower extremity strength. Status: Ongoing Patient will be independent with aquatic program and transition to a community pool and Patient will display decreased acute or intense pain and be able to transition to tolerating land based program - Goal Met Patient will perform exercise in a community-based pool independently for 6-8 weeks, following which she will switch to a land-based PT regimen to further improve strength. Status: New 03/19/24 Patient Goals: To reduce her pain. - ongoing Planned Interventions, Frequency, and Duration: (2 visits - one visit in the pool and one visit after the pt has completed 6-8wks of community-based pool exercise.), 8 weeks Total Number of Visits Planned: 12 (Today is 07/14) Patient to be seen for Aquatic PT (00651), Therapeutic activities (56555), Therapeutic exercise (25431), Neuromuscular re-education (50463), Gait Training (29953), Manual therapy (57514) PLAN FOR NEXT VISIT: Ensure the 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ble to complete all aquatic exercises. Print out detailed HEP and provide to pt for reference when exercising in community-based pool. SUBJECTIVE: Pt states that her knee soreness is a little bit worse, but she expected this soreness after the exercises she performwed. Pt remarks I felt good when I was in the pool - I had real good results from that. Then we went on vacation for a week and I didn't do anything. After I came back I felt like I was at square one. She remarks that she has a hard time recalling her exercises that she did in the pool at the end of January.. Functional Limitations: standing, walking, rising from a chair, walking in the house, walking in the community, stair negotiation Pain: Pain Pain Level: 7 Pain Location: Knee - Left Additional Pain Information : Location 2 Pain Level 2: 4 Pain Location 2: Knee - Right OBJECTIVE MEASURES WITH LEVEL OF FUNCTION: Functional Performance Test Results 5 Times Sit to Stand Test : 15.12 sec Timed Up and Go (sec): 17.72 sec Timed Up and Go - Condition 2 (sec) : 20 TREATMENT: Therapeutic Activity: 1: Obtained objective and subjective information for today's progress report. Reviewed and updated pt goals as well. 2: Educated on the change to plan of care 3: Educated on the benefit of land-based exercises. Advised the pt to perform aquatic exercises in the gym environment to improve baseline strength and increase tolerance to land-based activity. Set pt up with fitness staff to establish membership through [employer] Skilled Intervention: Activity progression based on professional judgment. Education as noted above Billing Therapeutic Activity Treatment Minutes: 17 Skilled Treatment Time Minutes (timed and untimed codes): 17 Total Session Time (minutes): 17 Session Start Time : 1417 Session Stop Time : 1434 Candace Larry PT, DPT documented in [facility] encounterC[facility] NoteHNO ID: [id number] Author: JACQUELYN ODONNELL PTA Service: ? Author Type: Millinery Department Manager Type: Progress Notes Filed: 03/16/2024 15:08 Note Text: Episode Visit Count: 9 Therapist That Will Accept/Oversee The Plan Of Care: Blaze Alejandro PT, DPT Start of Care Date: 01/19/24 Plan of Care Certification Date: 01/19/24 Next Certification Due Date: 04/17/24 Patient Identified by Name and Date of : Yes REHABILITATION AND SPORTS THERAPY PHYSICAL THERAPY TREATMENT NOTE ASSESSMENT: Penny Mckeon tolerated the session with fatigue and expected muscle soreness. She demonstrated difficulty with standing exercises due to pain and fatigue and req'd seated rest breaks due to this. The patient will continue to benefit from ongoing skilled physical therapy to progress toward set goals. PLAN FOR NEXT VISIT: Continue with LE strengthening as tolerated. SUBJECTIVE: Penny notes that her L knee is feeling worse than her R today which is typical. Pain: Pain Pain Level: 5 Pain Location: Knee - Right, Knee - Left Description: Aching Post Treatment Pain Post Treatment Pain Level: Better Post Treatment Pain Location: Knee - Left, Knee - Right OBJECTIVE MEASURES WITH LEVEL OF FUNCTION: Pt ambulates into session with SPC. TREATMENT: Therapeutic Exercise: 1: SciFit L1 x 5mins for improved mobility/ROM and tolerance to mobility/functional movement; subjective info taken during 2: Gastroc stretch 20x4 3: HS stretch at stairs 20x3 ea LE 4: Heel raises 2x10 6: Seated HS curls with orange band 2x10 ea LE Skilled Intervention: Patient was educated in proper exercise technique and purpose for exercises. Skilled judgment was used in selection of appropriate interventions. Correct performance of therapeutic exercises was facilitated with verbal, visual, and tactile cuing. Billing Therapeutic Exercise Treatment Minutes: 38 Skilled Treatment Time Minutes (timed and untimed codes): 38 Total Session Time (minutes): 40 Session Start Time : 1422 Session Stop Time : 1502 [facility] of Present illness Narrative* Blas Jacquelyn, [facility] - 03/16/2024 2:22 PM EDT Episode Visit Count: 9 Therapist That Will Accept/Oversee The Plan Of Care: Blaze Alejandro PT, DPT Start of Care Date: 01/19/24 Plan of Care Certification Date: 01/19/24 Next Certification Due Date: 04/17/24 Patient Identified by Name and Date of : Yes REHABILITATION AND SPORTS THERAPY PHYSICAL THERAPY TREATMENT NOTE ASSESSMENT: Penny Mckeon tolerated the session with fatigue and expected muscle soreness. She demonstrated difficulty with standing exercises due to pain and fatigue and req'd seated rest breaks due to this. The patient will continue to benefit from ongoing skilled physical therapy to progress toward set goals. PLAN FOR NEXT VISIT: Continue with LE strengthening as tolerated. SUBJECTIVE: Penny notes that her L knee is feeling worse than her R today which is typical. Pain: Pain Pain Level: 5 Pain Location: Knee - Right, Knee - Left Description: Aching Post Treatment Pain Post Treatment Pain Level: Better Post Treatment Pain Location: Knee - Left, Knee - Right OBJECTIVE MEASURES WITH LEVEL OF FUNCTION: Pt ambulates into session with SPC. TREATMENT: Therapeutic Exercise: 1: SciFit L1 x 5mins for improved mobility/ROM and tolerance to mobility/functional movement; subjective info taken during 2: Gastroc stretch 20x4 3: HS stretch at stairs 20x3 ea LE 4: Heel raises 2x10 6: Seated HS curls with orange band 2x10 ea LE Skilled Intervention: Patient was educated in proper exercise technique and purpose for exercises. Skilled judgment was used in selection of appropriate interventions. Correct performance of therapeutic exercises was facilitated with verbal, visual, and tactile cuing. Billing Therapeutic Exercise Treatment Minutes: 38 Skilled Treatment Time Minutes (timed and untimed codes): 38 Total Session Time (minutes): 40 Session Start Time : 1422 Session Stop Time : 1502 Jacquelyn Odonnell PTA documented in this encounterC[facility] NoteHNO ID: [id number] Author: BLAZE ALEJANDRO PT, DPT Service: ? Author Type: Physical Therapist Type: Progress Notes Filed: 02/23/2024 11:38 Note Text: Episode Visit Count: 8 Therapist That Will Accept/Oversee The Plan Of Care: Blaze Alejandro PT, DPT Start of Care Date: 01/19/24 Plan of Care Certification Date: 01/19/24 Next Certification Due Date: 04/17/24 Patient Identified by Name and Date of : Yes REHABILITATION AND SPORTS THERAPY PHYSICAL THERAPY PROGRESS REPORT PLAN OF CARE UPDATE: Assessment: Penny Mckeon demonstrates minimal improvement in standing and walking. She has progressed toward goals. Patient continues to present with impairments in gait, independence in exercise, overall function, range of motion, strength, and symptom management that interfere with . Current prognosis is Good due to: current objective clinical presentation, good overall health status . Will continue with one more aquatic visit to transition to her home exercise program with aquatic exercises. She will benefit from continued skilled therapy services to meet the updated goals for this plan of care as noted below. Goals for Episode of Care: created on 01/19/24 through 03/01/2402/22 Patient report standing/ambulation tolerance of up to 60 minutes to demonstrate improvement in standing duration for functional mobility and activities. - Not Met [place] in home exercise program. Patient will decrease pain to 3/10 with functional activities to allow patient to improve ambulation and standing tolerance for ADLs. Patient will increase active ROM of bilateral knee flexion and extension to 0-105 to allow pt to to improve gait mechanics / gait pattern . - Not Assessed Patient will demonstrate increase in bilateral lower extremity strength to 5/5 during manual muscle testing in order to improve function for basic self-care tasks and moderate to heavy functional tasks.- Ongoing Patient will Improve Timed Up and Go to less than 12 seconds to demonstrate decreased risk of falling. - Ongoing Patient will improve 5 time sit to stand to demonstrate improvement in functional lower extremity strength. - Ongoing Patient will be independent with aquatic program and transition to a community pool and Patient will display decreased acute or intense pain and be able to transition to tolerating land based program - Goal Met Patient Goals: To reduce her pain. - ongoing Patient Goals: To reduce her pain. Planned Interventions, Frequency, and Duration: 1 visit, 1 visit Total Number of Visits Planned: 1 Patient to be seen for Aquatic PT ([id number]), Therapeutic exercise ([id number]) PLAN FOR NEXT VISIT: One more aquatic session to finalize HEP to progress to aquatic HEP. SUBJECTIVE: Patient reporting standing tolerance of up to 30 minutes prior to requiring a seated rest break. She states she feels better with her symptoms after performing her aquatic therapy. She would like to finish with one more visit of aquatic to maintain compliance with her home exercise program of aquatic exercises.. Patient Goals: To reduce her pain. Pain: Pain Pain Level: 7 Pain Location: Knee - Right, Knee - Left Description: Aching, Stiffness Worst Pain Level: 10 Best Pain Level: 5 PROMIS Scales T-scores: mean of general population = 50. 5 points is clinically meaningfully difference Percentiles provide an indication of how the patient's score ranks in relation to the general population. Higher percentile rankings indicate better function/quality of life. 50th percentile is the average of the general population and indicates half of respondents had a worse score. OBJECTIVE MEASURES WITH LEVEL OF FUNCTION: LE Strength R Hip Extension: 4+/5 R Hip Flexion (L2): 4+/5 R Hip ABduction: 4+/5 R Hip ADduction: 5/5 R Hip Internal Rotation: 4+/5 R Hip External Rotation: 4+/5 R Knee Extension (L3): 5/5 R Knee Flexion: 4+/5 L Hip Extension: 4+/5 L Hip Flexion (L2): 4+/5 L Hip ABduction: 4+/5 L Hip ADduction: 5/5 L Hip Internal Rotation: 4+/5 L Hip External Rotation: 4+/5 L Knee Extension (L3): 5/5 L Knee Flexion: 4+/5 Gait Gait Observation: Lateral trunk sway wiht use of single point cane. Functional Performance Test Results Assistive Device: Cane 5 Times Sit to Stand Test : 15 sec Timed Up and Go (sec): 20 sec TREATMENT: Therapeutic Activity: 1: Reassessment performed consisting of strength testing, 5x STS, TUG, subjective gathering and education of her physical therapy plan of care. Patient was an active participant in her physical therapy plan of care this date and is agreeable to her progress towards physical therapy goals for discharge. 2: Educated patient with home exercise plan progression to aquatic therapy. Patient provided handouts for local fitness center at this facility for further compliance with home exercise plan. 3: Gated patient to follow-up with [facility] (more content not included)...[facility]05-23-2024 History of Present illness Narrative* Blaze Alejandro, PT, DPT - 02/23/2024 11:12 AM EDT Episode Visit Count: 8 Therapist That Will Accept/Oversee The Plan Of Care: Blaze Alejandro PT, DPT Start of Care Date: 01/19/24 Plan of Care Certification Date: 01/19/24 Next Certification Due Date: 04/17/24 Patient Identified by Name and Date of : Yes REHABILITATION AND SPORTS THERAPY PHYSICAL THERAPY PROGRESS REPORT PLAN OF CARE UPDATE: Assessment: Penny Mckeon demonstrates minimal improvement in standing and walking. She has progressed toward goals. Patient continues to present with impairments in gait, independence in exercise, overall function, range of motion, strength, and symptom management that interfere with . Current prognosis is Good due to: current objective clinical presentation, good overall health status . Will continue withone more aquatic visit to transition to her home exercise program with aquatic exercises. She will benefit from continued skilled therapy services to meet the updated goals for this plan of care as noted below. Goals for Episode of Care: created on 01/19/24 through 03/01/2402/22 Patient report standing/ambulation tolerance of up to 60 minutes to demonstrate improvement in standing duration for functional mobility and activities. - Not Met [place] in home exercise program. Patient will decrease pain to 3/10 with functional activities to allow patient to improve ambulation and standing tolerance for ADLs. Patient will increase active ROM of bilateral knee flexion and extension to 0-105 to allow pt to to improve gait mechanics / gait pattern . - Not Assessed Patient will demonstrate increase in bilateral lower extremity strength to 5/5 during manual muscle testing in order to improve function for basic self-care tasks and moderate to heavy functional tasks.- Ongoing Patient will Improve Timed Up and Go to less than 12 seconds to demonstrate decreased risk of falling. - Ongoing Patient will improve 5 time sit to stand to demonstrate improvement in functional lower extremity strength. - Ongoing Patient will be independent with aquatic program and transition to a community pool and Patient will display decreased acute or intense pain and be able to transition to tolerating land based program - Goal Met Patient Goals: To reduce her pain. - ongoing Patient Goals: To reduce her pain. Planned Interventions, Frequency, and Duration: 1 visit, 1 visit Total Number of Visits Planned: 1 Patient to be seen for Aquatic PT ([id number]), Therapeutic exercise ([id number]) PLAN FOR NEXT VISIT: One more aquatic session to finalize HEP to progress to aquatic HEP. SUBJECTIVE: Patient reporting standing tolerance of up to 30 minutes prior to requiring a seated rest break. She states she feels better with her symptoms after performing her aquatic therapy. She would like to finish with one more visit of aquatic to maintain compliance with her home exercise program of aquatic exercises.. Patient Goals: To reduce her pain. Pain: Pain Pain Level: 7 Pain Location: Knee - Right, Knee - Left Description: Aching, Stiffness Worst Pain Level: 10 Best Pain Level: 5 PROMIS Scales T-scores: mean of general population = 50. 5 points is clinically meaningfully difference Percentiles provide an indication of how the patient's score ranks in relation to the general population. Higher percentile rankings indicate better function/quality of life. 50th percentile is the average of the general population and indicates half of respondents had a worse score. OBJECTIVE MEASURES WITH LEVEL OF FUNCTION: LE Strength R Hip Extension: 4+/5 R Hip Flexion (L2): 4+/5 R Hip ABduction: 4+/5 R Hip ADduction: 5/5 R Hip Internal Rotation: 4+/5 R Hip External Rotation: 4+/5 R Knee Extension (L3): 5/5 R Knee Flexion: 4+/5 L Hip Extension: 4+/5 L Hip Flexion (L2): 4+/5 L Hip ABduction: 4+/5 L Hip ADduction: 5/5 L Hip Internal Rotation: 4+/5 L Hip External Rotation: 4+/5 L Knee Extension (L3): 5/5 L Knee Flexion: 4+/5 Gait Gait Observation: Lateral trunk sway wiht use of single point cane. Functional Performance Test Results Assistive Device: Cane 5 Times Sit to Stand Test : 15 sec Timed Up and Go (sec): 20 sec TREATMENT: Therapeutic Activity: 1: Reassessment performed consisting of strength testing, 5x STS, TUG, subjective gathering and education of her physical therapy plan of care. Patient was an active participant in her physical therapy plan of care this date and is agreeable to her progress towards physical therapy goals for discharge. 2: Educated patient with home exercise plan progression to aquatic therapy. Patient provided handouts for local fitness center at this facility for further compliance with home exercise plan. 3: Gated patient to follow-up with land-based therapy when she feels she is ready to perform land-based exercises for knee pain. Skilled Intervention: Activity progression based on professional judgment. Education Billing Therapeutic Activity Treatment Minutes: 18 Skilled Treatment Time Minutes (timed and untimed codes): 18 Total Session Time (minutes): 18 Session Start Time : 1112 Session Stop Time : 1130 Blaze Alejandro PT, DPT documented in this encounterC[facility] NoteHNO ID: [id number] Author: TOMAS DUARTE PTA Service: ? Author Type: Millinery Department Manager Type: Progress Notes Filed: 02/08/2024 11:37 Note Text: Episode Visit Count: 7 Therapist That Will Accept/Oversee The Plan Of Care: Blaze Alejandro PT, DPT Start of Care Date: 01/19/24 Plan of Care Certification Date: 01/19/24 Next Certification Due Date: 04/17/24 Patient Identified by Name and Date of : Yes REHABILITATION AND SPORTS THERAPY PHYSICAL THERAPY TREATMENT NOTE ASSESSMENT: Penny Mckeon tolerated the session with decreased endurance, fatigue, and expected muscle soreness. She demonstrated improvements in her pain level post the unloaded exercises. The patient will continue to benefit from ongoing skilled physical therapy to progress toward set goals. PLAN FOR NEXT VISIT: Exercises for hip flexibility and bilateral lower extremity strengthening. Right and left knee flexion extension range of motion exercises. Progress to home exercise for transition to community pool. SUBJECTIVE: Penny reports her knees were sore yesterday due to the rainy weather that was in the forecast. Pain: Pain Pain Level: 4 Pain Location: Knee - Right, Knee - Left Description: Aching, Stiffness Post Treatment Pain Post Treatment Pain Level: Better OBJECTIVE MEASURES WITH LEVEL OF FUNCTION: No objective measures taken during this encounter. TREATMENT: Aquatic Therapy: Entered the pool: Forward on stairs Entered the pool assist level: [place], With rail Entered the pool step pattern: Step to step Exited the pool: Forward on stairs Exited the pool assist level: [place], With rail Exited the pool step pattern: Step to step Aquatic Therapy ([id number]): 5 1: walking forward, backward, lateral x 4 each 2: gastroc/hamstring/knee flexion stretches on the steps x 3 holding 20 seconds each 3: step ups/squats on the steps x 15 each 4: 3-way hip, marching, heel raises, knee flexion w/ hydro-tone x 15 each 5: unloaded ski, bicycle, hip abduction/adduction x 5 minutes each Abbreviation Mera: BA = buoyancy assisted BR = buoyancy resisted BS = buoyancy supported reps = repetitions HEP = home exercise program Skilled Intervention: Patient was educated in proper exercise technique and purpose for exercises. Skilled judgment was provided in selection of appropriate interventions. Correct performance of exercises was facilitated with verbal cueing. Billing Aquatic Therapy Treatment Minutes: 30 Skilled Treatment Time Minutes (timed and untimed codes): 45 Total Session Time (minutes): 62 Session Start Time : 1021 Session Stop Time : 1123 Patient participated in 30 minutes of timed skilled physical therapy intervention [facility] of Present illness Narrative* Tomas Duarte [facility] - 02/08/2024 10:21 AM EDT Episode Visit Count: 7 Therapist That Will Accept/Oversee The Plan Of Care: Blaze Alejandro PT, DPT Start of Care Date: 01/19/24 Plan of Care Certification Date: 01/19/24 Next Certification Due Date: 04/17/24 Patient Identified by Name and Date of : Yes REHABILITATION AND SPORTS THERAPY PHYSICAL THERAPY TREATMENT NOTE ASSESSMENT: Penny Mckeon tolerated the session with decreased endurance, fatigue, and expected muscle soreness. She demonstrated improvements in her pain level post the unloaded exercises. The patient will continue to benefit from ongoing skilled physical therapy to progress toward set goals. PLAN FOR NEXT VISIT: Exercises for hip flexibility and bilateral lower extremity strengthening. Right and left knee flexion extension range of motion exercises. Progress to home exercise for transition to community pool. SUBJECTIVE: Penny reports her knees were sore yesterday due to the rainy weather that was in the forecast. Pain: Pain Pain Level: 4 Pain Location: Knee - Right, Knee - Left Description: Aching, Stiffness Post Treatment Pain Post Treatment Pain Level: Better OBJECTIVE MEASURES WITH LEVEL OF FUNCTION: No objective measures taken during this encounter. TREATMENT: Aquatic Therapy: Entered the pool: Forward on stairs Entered the pool assist level: [place], With rail Entered the pool step pattern: Step to step Exited the pool: Forward on stairs Exited the pool assist level: [place], With rail Exited the pool step pattern: Step to step Aquatic Therapy ([id number]): 5 1: walking forward, backward, lateral x 4 each 2: gastroc/hamstring/knee flexion stretches on the steps x 3 holding 20 seconds each 3: step ups/squats on the steps x 15 each 4: 3-way hip, marching, heel raises, knee flexion w/ hydro-tone x 15 each 5: unloaded ski, bicycle, hip abduction/adduction x 5 minutes each Abbreviation Mera: BA = buoyancy assisted BR = buoyancy resisted BS = buoyancy supported reps = repetitions HEP = home exercise program Skilled Intervention: Patient was educated in proper exercise technique and purpose for exercises. Skilled judgment was provided in selection of appropriate interventions. Correct performance of exercises was facilitated with verbal cueing. Billing Aquatic Therapy Treatment Minutes: 30 Skilled Treatment Time Minutes (timed and untimed codes): 45 Total Session Time (minutes): 62 Session Start Time : 1021 Session Stop Time : 1123 Patient participated in 30 minutes of timed skilled physical therapy intervention Tomas Duarte PTA documented in this encounterC[facility] NoteHNO ID: [id number] Author: TOMAS DUARTE PTA Service: ? Author Type: Millinery Department Manager Type: Progress Notes Filed: 02/06/2024 11:37 Note Text: Episode Visit Count: 6 Therapist That Will Accept/Oversee The Plan Of Care: Blaze Alejandro PT, DPT Start of Care Date: 01/19/24 Plan of Care Certification Date: 01/19/24 Next Certification Due Date: 04/17/24 Patient Identified by Name and Date of : Yes REHABILITATION AND SPORTS THERAPY PHYSICAL THERAPY TREATMENT NOTE ASSESSMENT: Penny Mckeon tolerated the session with decreased endurance, fatigue, and expected muscle soreness. She demonstrated improvements in her knee flexibility with the stretching. The patient will continue to benefit from ongoing skilled physical therapy to progress toward set goals. PLAN FOR NEXT VISIT: Exercises for hip flexibility and bilateral lower extremity strengthening. Right and left knee flexion extension range of motion exercises. Progress to home exercise for transition to community pool. SUBJECTIVE: Penny reports her knees are feeling better. My daughter stated that I'm walking better since starting therapy. Pain: Pain Pain Level: 3 Pain Location: Knee - Right, Knee - Left Description: Aching, Stiffness Post Treatment Pain Post Treatment Pain Level: Better OBJECTIVE MEASURES WITH LEVEL OF FUNCTION: No objective measures taken during this encounter. TREATMENT: Aquatic Therapy: Entered the pool: Forward on stairs Entered the pool assist level: [place], With rail Entered the pool step pattern: Step to step Exited the pool: Forward on stairs Exited the pool assist level: [place], With rail Exited the pool step pattern: Step to step Aquatic Therapy ([id number]): 5 1: walking forward, backward, lateral x 4 each 2: gastroc/hamstring/knee flexion stretches on the steps x 3 holding 20 seconds each 3: step ups/squats on the steps x 15 each 4: 3-way hip, marching, heel raises, knee flexion w/ hydro-tone x 15 each 5: unloaded ski, bicycle, hip abduction/adduction x 5 minutes each Abbreviation Mera: BA = buoyancy assisted BR = buoyancy resisted BS = buoyancy supported reps = repetitions HEP = home exercise program Skilled Intervention: Patient was educated in proper exercise technique and purpose for exercises. Skilled judgment was provided in selection of appropriate interventions. Correct performance of exercises was facilitated with verbal cueing. Billing Aquatic Therapy Treatment Minutes: 30 Skilled Treatment Time Minutes (timed and untimed codes): 45 Total Session Time (minutes): 62 Session Start Time : 1023 Session Stop Time : 1125 Patient participated in 30 minutes of timed skilled physical therapy intervention [facility] History of Present illness Narrative* Gerald Tomas Zena, [facility] - 02/06/2024 10:56 AM EDT Episode Visit Count: 6 Therapist That Will Accept/Oversee The Plan Of Care: Blaze Alejandro PT, DPT Start of Care Date: 01/19/24 Plan of Care Certification Date: 01/19/24 Next Certification Due Date: 04/17/24 Patient Identified by Name and Date of : Yes REHABILITATION AND SPORTS THERAPY PHYSICAL THERAPY TREATMENT NOTE ASSESSMENT: Penny Mckeon tolerated the session with decreased endurance, fatigue, and expected muscle soreness. She demonstrated improvements in her knee flexibility with the stretching. The patient will continue to benefit from ongoing skilled physical therapy to progress toward set goals. PLAN FOR NEXT VISIT: Exercises for hip flexibility and bilateral lower extremity strengthening. Right and left knee flexion extension range of motion exercises. Progress to home exercise for transition to community pool. SUBJECTIVE: Penny reports her knees are feeling better. My daughter stated that I'm walking better since starting therapy. Pain: Pain Pain Level: 3 Pain Location: Knee - Right, Knee - Left Description: Aching, Stiffness Post Treatment Pain Post Treatment Pain Level: Better OBJECTIVE MEASURES WITH LEVEL OF FUNCTION: No objective measures taken during this encounter. TREATMENT: Aquatic Therapy: Entered the pool: Forward on stairs Entered the pool assist level: [place], With rail Entered the pool step pattern: Step to step Exited the pool: Forward on stairs Exited the pool assist level: [place], With rail Exited the pool step pattern: Step to step Aquatic Therapy ([id number]): 5 1: walking forward, backward, lateral x 4 each 2: gastroc/hamstring/knee flexion stretches on the steps x 3 holding 20 seconds each 3: step ups/squats on the steps x 15 each 4: 3-way hip, marching, heel raises, knee flexion w/ hydro-tone x 15 each 5: unloaded ski, bicycle, hip abduction/adduction x 5 minutes each Abbreviation Mera: BA = buoyancy assisted BR = buoyancy resisted BS = buoyancy supported reps = repetitions HEP = home exercise program Skilled Intervention: Patient was educated in proper exercise technique and purpose for exercises. Skilled judgment was provided in selection of appropriate interventions. Correct performance of exercises was facilitated with verbal cueing. Billing Aquatic Therapy Treatment Minutes: 30 Skilled Treatment Time Minutes (timed and untimed codes): 45 Total Session Time (minutes): 62 Session Start Time : 1023 Session Stop Time : 1125 Patient participated in 30 minutes of timed skilled physical therapy intervention Tomas Duarte PTA [facility] NoteHNO ID: [id number] Author: TOMAS DUARTE PTA Service: ? Author Type: Millinery Department Manager Type: Progress Notes Filed: 02/01/2024 12:03 Note Text: Episode Visit Count: 5 Therapist That Will Accept/Oversee The Plan Of Care: Blaze Alejandro PT, DPT Start of Care Date: 01/19/24 Plan of Care Certification Date: 01/19/24 Next Certification Due Date: 04/17/24 Patient Identified by Name and Date of : Yes REHABILITATION AND SPORTS THERAPY PHYSICAL THERAPY TREATMENT NOTE ASSESSMENT: Penny Mckeon tolerated the session with decreased endurance, fatigue, and expected muscle soreness. She demonstrated improvements in her tolerance to the progression of the repetitions with the exercises without increased symptoms. The patient will continue to benefit from ongoing skilled physical therapy to progress toward set goals. PLAN FOR NEXT VISIT: Exercises for hip flexibility and bilateral lower extremity strengthening. Right and left knee flexion extension range of motion exercises. Progress to home exercise for transition to community pool. SUBJECTIVE: Penny offers no new complaints. Pain: Pain Pain Level: 4 Pain Location: Knee - Right, Knee - Left Description: Aching, Stiffness Post Treatment Pain Post Treatment Pain Level: Better OBJECTIVE MEASURES WITH LEVEL OF FUNCTION: No objective measures taken during this encounter. TREATMENT: Aquatic Therapy: Entered the pool: Forward on stairs Entered the pool assist level: [place], With rail Entered the pool step pattern: Step to step Exited the pool: Forward on stairs Exited the pool assist level: [place], With rail Exited the pool step pattern: Step to step Aquatic Therapy ([id number]): 5 1: walking forward, backward, lateral x 4 each 2: gastroc/hamstring/knee flexion stretches on the steps x 3 holding 20 seconds each 3: step ups/squats on the steps x 15 each 4: 3-way hip, marching, heel raises, knee flexion w/ hydro-tone x 15 each 5: unloaded ski, bicycle, hip abduction/adduction x 5 minutes each Abbreviation Mera: BA = buoyancy assisted BR = buoyancy resisted BS = buoyancy supported reps = repetitions HEP = home exercise program Skilled Intervention: Patient was educated in proper exercise technique and purpose for exercises. Skilled judgment was provided in selection of appropriate interventions. Correct performance of exercises was facilitated with verbal cueing. Billing Aquatic Therapy Treatment Minutes: 30 Skilled Treatment Time Minutes (timed and untimed codes): 45 Total Session Time (minutes): 51 Session Start Time : 1021 Session Stop Time : 1112 Patient participated in 30 minutes of timed skilled physical therapy intervention Tomas Duarte, [facility]05-01-2024 History of Present illness Narrative* Tomas Duarte, [facility] - 02/01/2024 10:20 AM EDT Episode Visit Count: 5 Therapist That Will Accept/Oversee The Plan Of Care: Blaze Alejandro PT, DPT Start of Care Date: 01/19/24 Plan of Care Certification Date: 01/19/24 Next Certification Due Date: 04/17/24 Patient Identified by Name and Date of : Yes REHABILITATION AND SPORTS THERAPY PHYSICAL THERAPY TREATMENT NOTE ASSESSMENT: Penny Mckeon tolerated the session with decreased endurance, fatigue, and expected muscle soreness. She demonstrated improvements in her tolerance to the progression of the repetitions with the exercises without increased symptoms. The patient will continue to benefit from ongoing skilled physical therapy to progress toward set goals. PLAN FOR NEXT VISIT: Exercises for hip flexibility and bilateral lower extremity strengthening. Right and left knee flexion extension range of motion exercises. Progress to home exercise for transition to community pool. SUBJECTIVE: Penny offers no new complaints. Pain: Pain Pain Level: 4 Pain Location: Knee - Right, Knee - Left Description: Aching, Stiffness Post Treatment Pain Post Treatment Pain Level: Better OBJECTIVE MEASURES WITH LEVEL OF FUNCTION: No objective measures taken during this encounter. TREATMENT: Aquatic Therapy: Entered the pool: Forward on stairs Entered the pool assist level: [place], With rail Entered the pool step pattern: Step to step Exited the pool: Forward on stairs Exited the pool assist level: [place], With rail Exited the pool step pattern: Step to step Aquatic Therapy ([id number]): 5 1: walking forward, backward, lateral x 4 each 2: gastroc/hamstring/knee flexion stretches on the steps x 3 holding 20 seconds each 3: step ups/squats on the steps x 15 each 4: 3-way hip, marching, heel raises, knee flexion w/ hydro-tone x 15 each 5: unloaded ski, bicycle, hip abduction/adduction x 5 minutes each Abbreviation Mera: BA = buoyancy assisted BR = buoyancy resisted BS = buoyancy supported reps = repetitions HEP = home exercise program Skilled Intervention: Patient was educated in proper exercise technique and purpose for exercises. Skilled judgment was provided in selection of appropriate interventions. Correct performance of exercises was facilitated with verbal cueing. Billing Aquatic Therapy Treatment Minutes: 30 Skilled Treatment Time Minutes (timed and untimed codes): 45 Total Session Time (minutes): 51 Session Start Time : 1021 Session Stop Time : 1112 Patient participated in 30 minutes of timed skilled physical therapy intervention Tomas Duarte PTA documented in [facility] encounterC[facility] NoteHNO ID: [id number] Author: TMOAS DUARTE PTA Service: ? Author Type: Millinery Department Manager Type: Progress Notes Filed: 01/30/2024 09:29 Note Text: Episode Visit Count: 4 Therapist That Will Accept/Oversee The Plan Of Care: Blaze Alejandro PT, DPT Start of Care Date: 01/19/24 Plan of Care Certification Date: 01/19/24 Next Certification Due Date: 04/17/24 Patient Identified by Name and Date of : Yes REHABILITATION AND SPORTS THERAPY PHYSICAL THERAPY TREATMENT NOTE ASSESSMENT: Penny Mckeon tolerated the session with decreased endurance, fatigue, and expected muscle soreness. She demonstrated improvements in her pain level post the unloaded exercises. The patient will continue to benefit from ongoing skilled physical therapy to progress toward set goals. PLAN FOR NEXT VISIT: Exercises for hip flexibility and bilateral lower extremity strengthening. Right and left knee flexion extension range of motion exercises. Progress to home exercise for transition to community pool. SUBJECTIVE: Penny reports she feels the exercises are helping. Pain: Pain Pain Level: 4 Pain Location: Knee - Right, Knee - Left Description: Aching, Stiffness Post Treatment Pain Post Treatment Pain Level: Better OBJECTIVE MEASURES WITH LEVEL OF FUNCTION: No objective measures taken during this encounter. TREATMENT: Aquatic Therapy: Entered the pool: Forward on stairs Entered the pool assist level: [place], With rail Entered the pool step pattern: Step to step Exited the pool: Forward on stairs Exited the pool assist level: [place], With rail Exited the pool step pattern: Step to step Aquatic Therapy ([id number]): 5 1: walking forward, backward, lateral x 3 each 2: gastroc/hamstring/knee flexion stretches on the steps x 3 holding 20 seconds each 3: step ups/squats on the steps x 10 each 4: 3-way hip, marching, heel raises, knee flexion w/ hydro-tone x 10 each 5: unloaded ski, bicycle, hip abduction/adduction x 5 minutes each Abbreviation Mera: BA = buoyancy assisted BR = buoyancy resisted BS = buoyancy supported reps = repetitions HEP = home exercise program Skilled Intervention: Patient was educated in proper exercise technique and purpose for exercises. Skilled judgment was provided in selection of appropriate interventions. Correct performance of exercises was facilitated with verbal cueing. Billing Aquatic Therapy Treatment Minutes: 30 Skilled Treatment Time Minutes (timed and untimed codes): 45 Total Session Time (minutes): 49 Session Start Time : 0755 Session Stop Time : 0844 Patient participated in 30 minutes of timed skilled physical therapy intervention Tomas Duarte, [facility]04-29-2024 History of Present illness Narrative* Tomas Duarte, [facility] - 01/30/2024 7:55 AM EDT Episode Visit Count: 4 Therapist That Will Accept/Oversee The Plan Of Care: Blaze Alejandro PT, DPT Start of Care Date: 01/19/24 Plan of Care Certification Date: 01/19/24 Next Certification Due Date: 04/17/24 Patient Identified by Name and Date of : Yes REHABILITATION AND SPORTS THERAPY PHYSICAL THERAPY TREATMENT NOTE ASSESSMENT: Penny Mckeon tolerated the session with decreased endurance, fatigue, and expected muscle soreness. She demonstrated improvements in her pain level post the unloaded exercises. The patient will continue to benefit from ongoing skilled physical therapy to progress toward set goals. PLAN FOR NEXT VISIT: Exercises for hip flexibility and bilateral lower extremity strengthening. Right and left knee flexion extension range of motion exercises. Progress to home exercise for transition to community pool. SUBJECTIVE: Penny reports she feels the exercises are helping. Pain: Pain Pain Level: 4 Pain Location: Knee - Right, Knee - Left Description: Aching, Stiffness Post Treatment Pain Post Treatment Pain Level: Better OBJECTIVE MEASURES WITH LEVEL OF FUNCTION: No objective measures taken during this encounter. TREATMENT: Aquatic Therapy: Entered the pool: Forward on stairs Entered the pool assist level: [place], With rail Entered the pool step pattern: Step to step Exited the pool: Forward on stairs Exited the pool assist level: [place], With rail Exited the pool step pattern: Step to step Aquatic Therapy ([id number]): 5 1: walking forward, backward, lateral x 3 each 2: gastroc/hamstring/knee flexion stretches on the steps x 3 holding 20 seconds each 3: step ups/squats on the steps x 10 each 4: 3-way hip, marching, heel raises, knee flexion w/ hydro-tone x 10 each 5: unloaded ski, bicycle, hip abduction/adduction x 5 minutes each Abbreviation Mera: BA = buoyancy assisted BR = buoyancy resisted BS = buoyancy supported reps = repetitions HEP = home exercise program Skilled Intervention: Patient was educated in proper exercise technique and purpose for exercises. Skilled judgment was provided in selection of appropriate interventions. Correct performance of exercises was facilitated with verbal cueing. Billing Aquatic Therapy Treatment Minutes: 30 Skilled Treatment Time Minutes (timed and untimed codes): 45 Total Session Time (minutes): 49 Session Start Time : 754 Session Stop Time : 843 Patient participated in 30 minutes of timed skilled physical therapy intervention Tomas Duarte PTA documented in this encounterC[facility] NoteHNO ID: [id number] Author: TOMAS DUARTE PTA Service: ? Author Type: Millinery Department Manager Type: Progress Notes Filed: 01/25/2024 10:20 Note Text: Episode Visit Count: 3 Therapist That Will Accept/Oversee The Plan Of Care: Blaze Alejandro PT, DPT Start of Care Date: 01/19/24 Plan of Care Certification Date: 01/19/24 Next Certification Due Date: 04/17/24 Patient Identified by Name and Date of : Yes REHABILITATION AND SPORTS THERAPY PHYSICAL THERAPY TREATMENT NOTE ASSESSMENT: Penny Mckeon tolerated the session with decreased endurance, fatigue, and expected muscle soreness. She demonstrated improvements in her tolerance to performing the exercises without increased symptoms. The patient will continue to benefit from ongoing skilled physical therapy to progress toward set goals. PLAN FOR NEXT VISIT: Exercises for hip flexibility and bilateral lower extremity strengthening. Right and left knee flexion extension range of motion exercises. Progress to home exercise for transition to community pool. SUBJECTIVE: Penny denies soreness after her first session. I'm more stiff today. Pain: Pain Pain Level: 4 Pain Location: Knee - Right, Knee - Left Description: Aching, Stiffness Post Treatment Pain Post Treatment Pain Level: No Change OBJECTIVE MEASURES WITH LEVEL OF FUNCTION: No objective measures taken during this encounter. TREATMENT: Aquatic Therapy: Entered the pool: Forward on stairs Entered the pool assist level: [place], With rail Entered the pool step pattern: Step to step Exited the pool: Forward on stairs Exited the pool assist level: [place], With rail Exited the pool step pattern: Step to step Aquatic Therapy ([id number]): 5 1: walking forward, backward, lateral x 3 each 2: gastroc/hamstring/knee flexion stretches on the steps x 3 holding 20 seconds each 3: step ups/squats on the steps x 10 each 4: 3-way hip, marching, heel raises, knee flexion w/ hydro-tone x 10 each 5: unloaded ski, bicycle, hip abduction/adduction x 5 minutes each Abbreviation Mera: BA = buoyancy assisted BR = buoyancy resisted BS = buoyancy supported reps = repetitions HEP = home exercise program Skilled Intervention: Patient was educated in proper exercise technique and purpose for exercises. Skilled judgment was provided in selection of appropriate interventions. Correct performance of exercises was facilitated with verbal cueing. [facility] Aquatic Therapy Treatment Minutes: 30 Skilled Treatment Time Minutes (timed and untimed codes): 45 Total Session Time (minutes): 48 Session Start Time : 928 Session Stop Time : 1016 Patient participated in 30 minutes of timed skilled physical therapy intervention Tomas Duarte, [facility]04-24-2024 History of Present illness Narrative* Tomas Duarte, [facility] - 01/25/2024 9:29 AM EDT Episode Visit Count: 3 Therapist That Will Accept/Oversee The Plan Of Care: Blaze Alejandro PT, DPT Start of Care Date: 01/19/24 Plan of Care Certification Date: 01/19/24 Next Certification Due Date: 04/17/24 Patient Identified by Name and Date of : Yes REHABILITATION AND SPORTS THERAPY PHYSICAL THERAPY TREATMENT NOTE ASSESSMENT: Penny Mckeon tolerated the session with decreased endurance, fatigue, and expected muscle soreness. She demonstrated improvements in her tolerance to performing the exercises without increased symptoms. The patient will continue to benefit from ongoing skilled physical therapy to progress toward set goals. PLAN FOR NEXT VISIT: Exercises for hip flexibility and bilateral lower extremity strengthening. Right and left knee flexion extension range of motion exercises. Progress to home exercise for transition to community pool. SUBJECTIVE: Penny denies soreness after her first session. I'm more stiff today. Pain: Pain Pain Level: 4 Pain Location: Knee - Right, Knee - Left Description: Aching, Stiffness Post Treatment Pain Post Treatment Pain Level: No Change OBJECTIVE MEASURES WITH LEVEL OF FUNCTION: No objective measures taken during this encounter. TREATMENT: Aquatic Therapy: Entered the pool: Forward on stairs Entered the pool assist level: [place], With rail Entered the pool step pattern: Step to step Exited the pool: Forward on stairs Exited the pool assist level: [place], With rail Exited the pool step pattern: Step to step Aquatic Therapy ([id number]): 5 1: walking forward, backward, lateral x 3 each 2: gastroc/hamstring/knee flexion stretches on the steps x 3 holding 20 seconds each 3: step ups/squats on the steps x 10 each 4: 3-way hip, marching, heel raises, knee flexion w/ hydro-tone x 10 each 5: unloaded ski, bicycle, hip abduction/adduction x 5 minutes each Abbreviation Mera: BA = buoyancy assisted BR = buoyancy resisted BS = buoyancy supported reps = repetitions HEP = home exercise program Skilled Intervention: Patient was educated in proper exercise technique and purpose for exercises. Skilled judgment was provided in selection of appropriate interventions. Correct performance of exercises was facilitated with verbal cueing. Billing Aquatic Therapy Treatment Minutes: 30 Skilled Treatment Time Minutes (timed and untimed codes): 45 Total Session Time (minutes): 48 Session Start Time : 928 Session Stop Time : 1016 Patient participated in 30 minutes of timed skilled physical therapy intervention Tomas Duarte PTA documented in this encounterC[facility]04[facility] NoteHNO ID: [id number] Author: TOMAS DUARTE PTA Service: ? Author Type: Millinery Department Manager Type: Progress Notes Filed: 01/23/2024 12:21 Note Text: Episode Visit Count: 2 Therapist That Will Accept/Oversee The Plan Of Care: Blaze Alejandro PT, DPT Start of Care Date: 01/19/24 Plan of Care Certification Date: 01/19/24 Next Certification Due Date: 04/17/24 Patient Identified by Name and Date of : Yes REHABILITATION AND SPORTS THERAPY PHYSICAL THERAPY TREATMENT NOTE ASSESSMENT: Penny Mckeno tolerated the session with decreased endurance, fatigue, and expected muscle soreness. She demonstrated difficulty with the hamstring stretches due to tightness. The patient will continue to benefit from ongoing skilled physical therapy to progress toward set goals. PLAN FOR NEXT VISIT: Exercises for hip flexibility and bilateral lower extremity strengthening. Right and left knee flexion extension range of motion exercises. Progress to home exercise for transition to community pool. SUBJECTIVE: Penny denies pain today. I was sore for 2 days after my evaluation. Pain: Pain Pain Level: 0 Pain Location: Knee - Right, Knee - Left Description: Aching, Stiffness Post Treatment Pain Post Treatment Pain Level: No Change OBJECTIVE MEASURES WITH LEVEL OF FUNCTION: No objective measures taken during this encounter. TREATMENT: Aquatic Therapy: Entered the pool: Forward on stairs Entered the pool assist level: [place], With rail Entered the pool step pattern: Step to step Exited the pool: Forward on stairs Exited the pool assist level: [place], With rail Exited the pool step pattern: Step to step Aquatic Therapy ([id number]): 5 1: walking forward, backward, lateral x 3 each 2: gastroc/hamstring/knee flexion stretches on the steps x 3 holding 20 seconds each 3: step ups/squats on the steps x 10 each 4: 3-way hip, marching, heel raises, knee flexion w/ hydro-tone x 10 each 5: unloaded ski, bicycle, hip abduction/adduction x 5 minutes each Abbreviation Mera: BA = buoyancy assisted BR = buoyancy resisted BS = buoyancy supported reps = repetitions HEP = home exercise program Skilled Intervention: Patient was educated in proper exercise technique and purpose for exercises. Skilled judgment was provided in selection of appropriate interventions. Correct performance of exercises was facilitated with verbal cueing. Billing Aquatic Therapy Treatment Minutes: 30 Skilled Treatment Time Minutes (timed and untimed codes): 45 Total Session Time (minutes): 57 Session Start Time : 1120 Session Stop Time : 1217 Patient participated in 30 minutes of timed skilled [facility] of Present illness Narrative* Tomas Duarte, [facility] - 01/23/2024 11:19 AM EDT Episode Visit Count: 2 Therapist That Will Accept/Oversee The Plan Of Care: Blaze Alejandro PT, DPT Start of Care Date: 01/19/24 Plan of Care Certification Date: 01/19/24 Next Certification Due Date: 04/17/24 Patient Identified by Name and Date of : Yes REHABILITATION AND SPORTS THERAPY PHYSICAL THERAPY TREATMENT NOTE ASSESSMENT: Penny Mckeon tolerated the session with decreased endurance, fatigue, and expected muscle soreness. She demonstrated difficulty with the hamstring stretches due to tightness. The patient will continue to benefit from ongoing skilled physical therapy to progress toward set goals. PLAN FOR NEXT VISIT: Exercises for hip flexibility and bilateral lower extremity strengthening. Right and left knee flexion extension range of motion exercises. Progress to home exercise for transition to community pool. SUBJECTIVE: Penny denies pain today. I was sore for 2 days after my evaluation. Pain: Pain Pain Level: 0 Pain Location: Knee - Right, Knee - Left Description: Aching, Stiffness Post Treatment Pain Post Treatment Pain Level: No Change OBJECTIVE MEASURES WITH LEVEL OF FUNCTION: No objective measures taken during this encounter. TREATMENT: Aquatic Therapy: Entered the pool: Forward on stairs Entered the pool assist level: [place], With rail Entered the pool step pattern: Step to step Exited the pool: Forward on stairs Exited the pool assist level: [place], With rail Exited the pool step pattern: Step to step Aquatic Therapy ([id number]): 5 1: walking forward, backward, lateral x 3 each 2: gastroc/hamstring/knee flexion stretches on the steps x 3 holding 20 seconds each 3: step ups/squats on the steps x 10 each 4: 3-way hip, marching, heel raises, knee flexion w/ hydro-tone x 10 each 5: unloaded ski, bicycle, hip abduction/adduction x 5 minutes each Abbreviation Mera: BA = buoyancy assisted BR = buoyancy resisted BS = buoyancy supported reps = repetitions HEP = home exercise program Skilled Intervention: Patient was educated in proper exercise technique and purpose for exercises. Skilled judgment was provided in selection of appropriate interventions. Correct performance of exercises was facilitated with verbal cueing. Billing Aquatic Therapy Treatment Minutes: 30 Skilled Treatment Time Minutes (timed and untimed codes): 45 Total Session Time (minutes): 57 Session Start Time : 1120 Session Stop Time : 1217 Patient participated in 30 minutes of timed skilled physical therapy intervention Tomas Duarte PTA documented in this encounterC[facility] NoteHNO ID: [id number] Author: BLAZE ALEJANDRO PT, DPT Service: ? Author Type: Physical Therapist Type: Progress Notes Filed: 01/19/2024 08:40 Note Text: Episode Visit Count: 1 Therapist That Will Accept/Oversee The Plan Of Care: Blaze Alejandro PT, DPT Start of Care Date: 01/19/24 Plan of Care Certification Date: 01/19/24 Next Certification Due Date: 04/17/24 Patient Identified by Name and Date of : Yes REHABILITATION AND SPORTS THERAPY PHYSICAL THERAPY EVALUATION PLAN OF CARE: Assessment: Penny Mckeon presents with chief complaint of bilateral knee pain that interferes with standing, walking, rising from a chair, walking in the house, walking in the community, stair negotiation . She presents with impairments in independence in exercise, joint mobility, overall function, patient reported outcome measures, range of motion, strength, and symptom management. Patient did not complete the PROMIS? (Patient Reported Outcome Measures Information System). Prognosis for therapy is Good due to: current objective clinical presentation, good overall health status . Symptoms consistent with bilateral knee OA. Will benefit from skilled therapy interventions to establish a home exercise plan with aquatic therapy based interventions. Overall her mobility is good, however it is noted most of her limitations are due to her arthritis present in her bilateral knees. She will benefit from skilled therapy services to meet the goals established for this plan of care as noted below. Goals for Episode of Care: created on 01/19/24 through 03/01/24 Patient report standing/ambulation tolerance of up to 60 minutes to demonstrate improvement in standing duration for functional mobility and activities. [place] in home exercise program. Patient will decrease pain to 3/10 with functional activities to allow patient to improve ambulation and standing tolerance for ADLs. Patient will increase active ROM of bilateral knee flexion and extension to 0-105 to allow pt to to improve gait mechanics / gait pattern . Patient will demonstrate increase in bilateral lower extremity strength to 5/5 during manual muscle testing in order to improve function for basic self-care tasks and moderate to heavy functional tasks. Patient will Improve Timed Up and Go to less than 12 seconds to demonstrate decreased risk of falling. Patient will improve 5 time sit to stand to demonstrate improvement in functional lower extremity strength. Patient will be independent with aquatic program and transition to a community pool and Patient will display decreased acute or intense pain and be able to transition to tolerating land based program Patient Goals: To reduce her pain. Planned Interventions, Frequency, and Duration: Current Frequency: 2x/week Duration: 4 weeks Total Number of Visits Planned: 8 Planned Treatment Interventions: Aquatic PT (72866), Therapeutic exercise (90607) PLAN FOR NEXT VISIT: Exercises for hip flexibility and bilateral lower extremity strengthening. Right and left knee flexion extension range of motion exercises. Progress to home exercise for transition to community pool. Patient demonstrates good understanding of plan of care and treatment. The above goals and plan of care were discussed and agreed upon by patient/family. SUBJECTIVE: Patient stating both of her knees are bone on bone. She states she does not want to cornejo into surgery and would like to lose weight first. Patient reporting she is limited with standing and ambulation tolerance. Standing tolerance of up to 30 minutes due to stiffness and pain in her knees as well. Several falls in the last year vanessa patient reporting 8 falls with no serious injury. She states her falls have occurred by tripping over items with environmental hazards. Patient Goals: To reduce her pain. Functional Limitations: standing, walking, rising from a chair, walking in the house, walking in the community, stair negotiation Prior Level of Function: Independent with restrictions Independent with the following restrictions: Use of single point cane and frequent falls. Relevant History Past Relevant Medical Conditions: Hypertension, Diabetes, Vertigo Home Environment Home Type: Multi-Level Entry To Home: Other: See Comment (Chair glide.) Tub/Shower Type: Walking shower. Equipment Owned: Other: See Comment, Wheelchair- Manual, Lift Chair, Cane (cane, life alert, chair glide.) Intake Information: Prescription present Falls Interview: Two or more falls in the last year Aquatic Screen: Yes Patient Weight: is 400 lbs or less Contra-indications to Aquatic Therapy: No noted contra-indications Ability to ascend /descend 5 stairs with assist of railing: Yes Pain: Pain Pain Level: 6 Pain Location: Knee - Right, Knee - Left Description: Aching, Stiffness, Throbbing Detailed Pain Score: Yes Worst Pain Level: 8 Best Pain Level: 0 (more content not included)...[facility]04-18-2024 History of Present illness Narrative* Blaze Alejandro PT, DPT - 01/19/2024 7:55 AM EDT Episode Visit Count: 1 Therapist That Will Accept/Oversee The Plan Of Care: Blaze Alejandro PT, DPT Start of Care Date: 01/19/24 Plan of Care Certification Date: 01/19/24 Next Certification Due Date: 04/17/24 Patient Identified by Name and Date of : Yes [facility] PHYSICAL THERAPY EVALUATION PLAN OF CARE: Assessment: Penny Mckeon presents with chief complaint of bilateral knee pain that interferes with standing, walking, rising from a chair, walking in the house, walking in the community, stair negotiation . She presents with impairments in independence in exercise, joint mobility, overall function, patient reported outcome measures, range of motion, strength, and symptom management. Patient didnot complete the PROMIS (Patient Reported Outcome Measures Information System). Prognosis for therapy is Good due to: current objective clinical presentation, good overall health status . Symptoms con jovanny with bilateral knee OA. Will benefit from skilled therapy interventions to establish a homeexercise plan with aquatic therapy based interventions. Overall her mobility is good, however it isnoted most of her limitations are due to her arthritis present in her bilateral knees. She will benefit from skilled therapy services to meet the goals established for this plan of care as noted below. Goals for Episode of Care: created on 01/19/24 through 03/01/24 Patient report standing/ambulation tolerance of up to 60 minutes to demonstrate improvement in standing duration for functional mobility and activities. [place] in home exercise program. Patient will decrease pain to 3/10 with functional activities to allow patient to improve ambulation and standing tolerance for ADLs. Patient will increase active ROM of bilateral knee flexion and extension to 0- 105 to allow pt to toimprove gait mechanics / gait pattern . Patient will demonstrate increase in bilateral lower extremity strength to 5/5 during manual muscletesting in order to improve function for basic self-care tasks and moderate to heavy functional tasks. Patient will Improve Timed Up and Go to less than 12 seconds to demonstrate decreased risk of falling. Patient will improve 5 time sit to stand to demonstrate improvement in functional lower extremity strength. Patient will be independent with aquatic program and transition to a community pool and Patient will display decreased acute or intense pain and be able to transition to tolerating land based program Patient Goals: To reduce her pain. Planned Interventions, Frequency, and Duration: Current Frequency: 2x/week Duration: 4 weeks Total Number of Visits Planned: 8 Planned Treatment Interventions: Aquatic PT (99321), Therapeutic exercise (28555) PLAN FOR NEXT VISIT: Exercises for hip flexibility and bilateral lower extremity strengthening. Right and left knee flexion extension range of motion exercises. Progress to home exercise for transition to community pool. Patient demonstrates good understanding of plan of care and treatment. The above goals and plan of care were discussed and agreed upon by patient/family. SUBJECTIVE: Patient stating both of her knees are bone on bone. She states she does not want to cornejo into surgery and would like to lose weight first. Patient reporting she is limited with standing and ambulation tolerance. Standing tolerance of up to 30 minutes due to stiffness and pain in her knees as well. Several falls in the last year vanessa patient reporting 8 falls with no serious injury. She states her falls have occurred by tripping over items with environmental hazards. Patient Goals: To reduce her pain. Functional Limitations: standing, walking, rising from a chair, walking in the house, walking in the community, stair negotiation Prior Level of Function: Independent with restrictions Independent with the following restrictions: Use of single point cane and frequent falls. Relevant History Past Relevant Medical Conditions: Hypertension, Diabetes, Vertigo Home Environment Home Type: Multi-Level Entry To Home: Other: See Comment (Chair glide.) Tub/Shower Type: Walking shower. Equipment Owned: Other: See Comment, Wheelchair- Manual, Lift Chair, Cane (cane, life alert, chair glide.) Intake Information: Prescription present Falls Interview: Two or more falls in the last year Aquatic Screen: Yes Patient Weight: is 400 lbs or less Contra-indications to Aquatic Therapy: No noted contra-indications Ability to ascend /descend 5 stairs with assist of railing: Yes Pain: Pain Pain Level: 6 Pain Location: Knee - Right, Knee - Left Description: Aching, Stiffness, Throbbing Detailed Pain Score: Yes Worst Pain Level: 8 Best Pain Level: 0 PROMIS Scales T-scores: mean of general population = 50. 5 points is clinically meaningfully difference Percentiles provide an indication of how the patient's score ranks in relation to the general population. Higher percentile rankings indicate better function/quality of life. 50th percentile is the average of the general population and indicates half of respondents had a worse score. OBJECTIVE MEASURES WITH LEVEL OF FUNCTION: Posture / Alignment LE Observations: Genu varum noted bilaterally. Crepitus noted with open chain knee extension bilaterally. Left greater than the right. LE AROM R Knee Extension: -4 Degrees R Knee Flexion: 97 Degrees L Knee Extension: -8 Degrees L Knee Flexion: 98 Degrees LE Strength R Hip Extension: 4+/5 R Hip Flexion (L2): 4+/5 R Hip ABduction: 4+/5 R Hip ADduction: 5/5 R Hip Internal Rotation: 4+/5 R Hip External Rotation: 4+/5 R Knee Extension (L3): 5/5 R Knee Flexion: 4+/5 L Hip Extension: 4+/5 L Hip Flexion (L2): 4+/5 L Hip ABduction: 4+/5 L Hip ADduction: 5/5 L Hip Internal Rotation: 4+/5 L Hip External Rotation: 4+/5 L Knee Extension (L3): 5/5 L Knee Flexion: 4+/5 Gait Gait Observation: Increased lateral trunk sway with use of single-point cane. Decreased terminal hip extension. Functional Performance Test Results Assistive Device: Cane 5 Times Sit to Stand Test : 14 sec Timed Up and Go (sec): 17 sec Education: Education Learning Preferences: Demonstration, Explanation Barriers: None Learning/educational needs: Home exercise program, Plan of Care Education Provided: Yes, see treatment interventions for education provided Education Provided To: Patient Education Mode/Type: Demonstration, Explanation/Discussion Response to Education/Teach Back: States/Identifies TREATMENT: PT Treatment Interventions: Self-Half-Way Management Evaluation Self-Half-Way Management: 1: Educated patient on pathology of knee OA. Educated with exposure of blood vessels and nerve endings which would increase joint swelling along with increased pain symptoms with prolonged activity. Also educated patient with other means of invasive interventions such as cortisone injections and gel injections as an alternative to potential total knee arthroplasty. Patient also instructed to consider future plans outside of physical therapy when discharged for promoting self-management of symptoms. Skilled Intervention: Skilled judgment in the selection of proper modification for activity of daily living/home management based on clinical presentation, deficits, and needs. Billing * Evaluation Low Complexity: 1 Unit Self-Care/Home Management Treatment Minutes: 10 Skilled Treatment Time Minutes (timed and untimed codes): 35 Total Session Time (minutes): 35 Session Start Time : 0750 Session Stop Time : 0825 Blaze Alejandro PT DPNj [facility] Discharge summary Author Dandy Bueno [facility] January 12, 2024 9:54pm Note Date/Time January 12, 2024 9:4 5pm [facility] Medical Records Department [address] [place] [address] Emergency Department Summary 01/12/24 MR#: [id number] Acct: [id number] Name: PENNY MCKEON Rep #:[id number] : 1945 78 From: Dandy Bueno MD PCP: Dr. Laura Bowden, DO Status:REG E R Location: ED HPI History of Present Illness Chief Complaint: Upper Extremity Injury Detail of Chief Complaint: Pain right shoulder, elbow, wrist and thumb status post fall this past Satu Informant: patient and family Occured/Mechanism Mechanism/Context: Yes blunt trauma Comment: Patient fell from standing position. She tripped. She landed on her right upper extremity. Onset/Context/Timing Onset: Days (Fall occurred Tuesday, January 06.) Context: Sudden Onset Timing: Continuous and Waxes and wanes Quality of Pain: Dull and Aching Location: Shoulder, elbow, wrist and right thumb Current Severity: Mild Maximum Severity: Moderate Worsened by: Movement Relieved by: Nothing Associated Symptoms Associated Symptoms: Negative for Parasthesia, Weakness or Loss of Funtion Narrative Narrative: Patient is a 78-year-old woman who had a mechanical fall. She is not on an anticoagulant. She is on a baby aspirin. She denies head trauma. Slight loss conscious. Denies neck pain. She denies loss of function. She complains of numbness in her thumb index and long finger. She denies chest pain or shortnessof breath. She denies nausea or vomiting. She has no other complaints. Prior similar symptoms: No Recent Illness/Hospitalization: No PFSH PFS Medical History Allergic rhinitis Anxiety and depression CKD (chronic kidney disease) Hyperlipidemia Hypertension Hypothyroidism Morbid obesity Type 2 diabetes mellitus Home Medications aspirin 81 mg tablet,delayed release (Adult Aspirin Regimen) 81 mg PO DAILY Blood thinner 10/15/23 [History Last Taken Unknown] atorvastatin 20 mg tablet 20 mg PO DAILY cholesterol 10/15/23 [History Last Taken Unknown] carvedilol 25 mg tablet 25 mg PO Q12H Blood pres 10/15/23 [History Last Taken Unknown] cetirizine 10 mg tablet 10 mg PO DAILY Allergies 10/15/23 [History Last Taken Unknown] cholestyramine-aspartame 4 gram oral powder for susp in a packet (CholestyramineLight) 1 ea PO DAILY cholesterol 10/15/23 [History Last Taken Unknown] empagliflozin 25 mg tablet (Jardiance) 25 mg PO DAILY Glucose control 10/15/23 [History Last Taken Unknown] ergocalciferol (vitamin D2) 1,250 mcg (50,000 unit) capsule 1,250 mcg PO DAILY Vit D 10/15/23 [History Last Taken Unknown] escitalopram oxalate 20 mg tablet 20 mg PO DAILY Anxiety 10/15/23 [History Last Taken Unknown] fenofibrate nanocrystallized 145 mg tablet 145 mg PO DAILY cholesterol 10/15/23 [History Last Taken Unknown] levothyroxine 50 mcg tablet 50 mcg PO DAILY thyroid 10/15/23 [History Last Taken Unknown] mirabegron 25 mg tablet,extended release 24 hr (Myrbetriq) 25 mg PO Q24H Lladknz70/13/24 [History Last Taken Unknown] montelukast 10 mg tablet 10 mg PO DAILY Wheezing 10/15/23 [History Last Taken Unknown] niacin 1,000 mg tablet,extended release 24 hr 1,000 mg PO DAILY cholesterol 10/15/23 [History Last Taken Unknown] oxybutynin chloride 10 mg tablet,extended release 24 hr 10 mg PO DAILY Bladder 10/15/23 [History Last Taken Unknown] sitagliptin phosphate 50 mg-metformin 1,000 mg tablet (Janumet) 1 tab PO DAILY Glucose 10/15/23 [History Last Taken Unknown] amoxicillin 875 mg-potassium clavulanate 125 mg tablet 1 tab PO Q12H 5 days #10 tabs 10/19/23 [Rx Last Taken Unknown] hydrocodone-acetaminophen 5-325mg 5mg-325mg 1 tab PO Q6H PRN pain 3 days #10 tabs 10/19/23 [Rx Last Taken Unknown] hydrocodone-acetaminophen 5-325mg 5mg-325mg 1 tab PO Q6H PRN PRN Pain 3 days #10TABLETS 01/12/24 [Rx Last Taken Unknown] Allergy/AdvReac Type Severity Reaction Status Date / Time No Known Allergies Allergy Verified 01/12/24 19:36 Family History Mother Cancer Diabetes Father Heart disease Surgical History S/P laparoscopic cholecystectomy S/P left knee arthroscopy Social History household members: none Smoking Status: Former smoker how long ago did patient quit smoking: Smoked age 22-until 30 years old, 1 ppd until quit. alcohol intake: never substance use type: does not use ROS ROS ED Constitutional Constitutional ED: Denies chills, fever(s), subjective, sweats or weight loss Eyes Eyes: Denies blurry vision, change in vision or diplopia ENT ENT ED: Denies ear pain, rhinorrhea or sore throat Cardiovascular Cardiovascular: Denies chest pain or palpitations Respiratory/Chest Respiratory/Chest: Denies cough, dyspnea or dyspnea on exertion Gastrointestinal Gastrointestinal: Denies nausea or vomiting Hematologic/Lymphatic Hematologic/Lymphatic: Denies easy bleeding or easy bruising EXAM Physical Exam Const Vital Signs: 01/12/24 19:36 Temperature 96.1 F L Temperature Source Temporal Pulse Rate 84 Respiratory Rate 18 Blood Pressure 170/84 H Blood Pressure Mean 112 Pulse Ox 94 Oxygen Delivery Method Room Air Positive well nourished, well developed and obese General Appearance ED: well developed and NAD; Negative for cyanotic or diaphoretic Nutritional Appearance: obese HEENT normocephalic and atraumatic Eyes PERRL and EOMs intact bilaterally Neck full ROM and supple Chest Wall inspection of chest normal and palpation of chest normal Resp normal respiratory effort Cardio regular rate and regular rhythm Extremity normal to inspection and full ROM Extremity Narrative: There is pain outpatient over the proximal humerus, medial epicondyles. There is no pain the patient with lateral epicondyle, lateral process or radial head with supination pronation. There is pain outpatient over the carpal bones and over the proximal phalanx of the right thumb. She complains of numbness and altered sensation in the thumb index and long finger. This is in the distribution of the radial nerve. General Extremety ED: Negative for edema General Extremity: Negative for edema Neuro oriented x3, CN's II-XII intact bilaterally, moves all extremities, no focal motor deficits and no sensory deficits noted Sensorium / Orientation: alert Motor Exam: strength 5/5 throughout Psych mental status grossly normal Skin General Skin Exam: Negative for petechiae Lesions: no lesions Rashes: no rashes MDM MDM MDM Narrative Medical decision making narrative: Nurse protocol was entered for x-ray of the shoulder elbow and wrist to rule outfracture versus contusion. Three-view x-ray of the right shoulder was obtained. There is significant degenerative changes with altered shape of the proximal humerus. There is no evidence of fracture, dislocation or subluxation. Three-view x-ray of the right elbow reveals degenerative changes. There is no anterior posterior fat-pad. There is no evidence of fracture subluxation or dislocation. Three-view x-ray of the wrist reveals degenerative change of the carpal bones. There is no volar fat pad. There is no malalignment of the carpal bones. Furthermore there is no evidence of fracture of the first or second metacarpal or phalanx of the thumb. X-ray of the shoulder, elbow and wrist were independent reviewed interpreted by me. Plan is opiate analgesia. She received a dose here and discharged to home. Patient had a negative drop test. She was able to AB duct to 90 degrees before experiencing pain. Radiography Diagnostic Testing: Clinical Impression(s) from Imaging Studies Elbow X-Ray 01/12/24 19:45 IMPRESSION: No evidence for acute fracture or dislocation.. Electronically Signed: Jhonatan Mendoza MD at 20:14 EDT , Shoulder X-Ray 01/12/24 19:45 IMPRESSION: Degenerative changes. No acute fracture or dislocation. Electronically Signed: Jhonatan Mendoza MD at 20:15 EDT , Wrist X-Ray 01/12/24 19:45 IMPRESSION: Arthritic changes. No acute fracture or dislocation Electronically Signed: Jhonatan Mendoza MD at 20:20 EDT , Discharge Plan Triage Chief Complaint: Upper Extremity Injury ED Provider: Dandy Bueno Dx/Rx/DC Orders Clinical Impression: Injury due to fall, Neurapraxia of right upper extremity, Contusion of right elbow, initial encounter, Contusion of right wrist, initial encounter, Contusionof right shoulder Instructions: ED Contusion, Upper Extremity Prescriptions: New hydrocodone-acetaminophen [hydrocodone-acetaminophen] 5-325 mg tablet 1 tab PO Q6H PRN PRN (Reason: Pain) 3 Days Qty: 10 0RF No Action carvedilol 25 mg tablet 25 mg PO Q12H atorvastatin 20 mg tablet 20 mg PO DAILY niacin 1,000 mg tablet extended release 24 hr 1,000 mg PO DAILY cetirizine 10 mg tablet 10 mg PO DAILY Patient Comments: TAKE ONE TABLET BY MOUTH EVERY DAY IN THE MORNING oxybutynin chloride 10 mg tablet extended release 24hr 10 mg PO DAILY levothyroxine 50 mcg tablet 50 mcg PO DAILY montelukast 10 mg tablet 10 mg PO DAILY ergocalciferol (vitamin D2) 1,250 mcg (50,000 unit) capsule 1,250 mcg PO DAILY Patient Comments: TAKE 1 CAPSULE (19817 UNITS) BY MOUTH ONCE A WEEK escitalopram oxalate 20 mg tablet 20 mg PO DAILY cholestyramine-aspartame [Cholestyramine Light] 4 gram powder in packet 1 ea PO DAILY Patient Comments: DISSOLVE 1 PACKET IN 2 TO 6 OUNCES OF WATER OR NONCARBONATED BEVERAGE TWO TIMES A DAY BEFORE MEALS AND DRINK Rx Instructions: orally daily; fenofibrate nanocrystallized 145 mg tablet 145 mg PO DAILY Hold Instructions: Pt has been DC'd Janumet 50-1,000 mg tablet 1 tab PO DAILY Myrbetriq 25 mg tablet extended release 24 hr 25 mg PO Q24H Hold Instructions: Pt has been DC'd Patient Comments: TAKE ONE TABLET BY MOUTH EVERY DAY SWALLOWING WHOLE WITH WATER. DO NOT CRUSH CHEW AND/OR DIVIDE. Jardiance 25 mg tablet 25 mg PO DAILY aspirin [Adult Aspirin Regimen] 81 mg tablet,delayed release (DR/EC) 81 mg PO DAILY amoxicillin-pot clavulanate 875-125 mg tablet 1 tab PO Q12H 5 Days Qty: 10 0RF hydrocodone-acetaminophen 5-325 mg tablet 1 tab PO Q6H PRN (Reason: pain) 3 Days Qty: 10 0RF Primary Care Provider: Laura Bowden Referrals: Laura Bowden DO [Primary Care Provider] - 1 Week if not improving Disposition Disposition: Home, Self Care What to do if you have Problems For any increased pain, shortness of breath, bleeding, nausea or vomiting, chestpain, or any unexpected problems, contact your Primary Care Provider. Call [facility] ([phone]) or report to the closest Emergency Room. Call 911 if necessary. 01/12/24 [id number] <Electronically signed by Dandy Bueno MD> Cosigner Signature (if applicable): CC: Dr. Laura Bowden DO ~ Signed [facility] Work Phone: [phone] 181-998101-17-2024 [facility] Medical Records Department [address] [place] [address] Discharge Summary 10/19/23 1445 MR#: [id number] Acct: [id number] Name: PENNY MCKOEN Rep #: [id number] : 1945 78 From: Tirso Friend MD PCP: Dr. Laura Bowden DO Status:[facility] Prov[facility] Date of Admission: 10/15/23 Primary Care Physician: Dr. Laura Bowden DO Consultations 10/15/23 21:49 Consult: Gastroenterology Routine Consulting Provider: [facility] Reason for Consult: cholecystitis/?choledocho w/ elevated bili/LFTs EMERGENT Consult: No MD Notified: Yes Date Notified: 10/15/23 Time Notified: 20:13 Method of Notification: Text Consult: General Surgery Routine Consulting Provider: Caden Roy Reason for Consult: Cholecystitis EMERGENT Consult: No Notified: Yes Date Notified: 10/15/23 Time Notified: 20:13 Method of Notification: ED Physician Initiated Reason For Visit: ACUTE CHOLECYSTITIS/CHOLEDOCHOLITHASIS W HYPERBIL Diagnosis Discharge Diagnosis (1) Acute calculous cholecystitis: Status: Acute Code(s): K80.00 - Calculus of gallbladder with acute cholecystitis without obstruction Medications at Discharge Home Medications aspirin 81 mg tablet,delayed release (Adult Aspirin Regimen) 81 mg PO DAILY Blood thinner 10/15/23 atorvastatin 20 mg tablet 20 mg PO DAILY cholesterol 10/15/23 carvedilol 25 mg tablet 25 mg PO Q12H Blood pres 10/15/23 cetirizine 10 mg tablet 10 mg PO DAILY Allergies 10/15/23 cholestyramine-aspartame 4 gram oral powder for susp in a packet (Cholestyramine Light) 1 ea PO DAILY cholesterol 10/15/23 empagliflozin 25 mg tablet (Jardiance) 25 mg PO DAILY Glucose control 10/15/23 ergocalciferol (vitamin D2) 1,250 mcg (50,000 unit) capsule 1,250 mcg PO DAILY Vit D 10/15/23 escitalopram oxalate 20 mg tablet 20 mg PO DAILY Anxiety 10/15/23 fenofibrate nanocrystallized 145 mg tablet 145 mg PO DAILY cholesterol 10/15/23 levothyroxine 50 mcg tablet 50 mcg PO DAILY thyroid 10/15/23 mirabegron 25 mg tablet,extended release 24 hr (Myrbetriq) 25 mg PO Q24H Bladder 10/15/23 montelukast 10 mg tablet 10 mg PO DAILY Wheezing 10/15/23 niacin 1,000 mg tablet,extended release 24 hr 1,000 mg PO DAILY cholesterol 10/15/23 oxybutynin chloride 10 mg tablet,extended release 24 hr 10 mg PO DAILY Bladder 10/15/23 sitagliptin phosphate 50 mg-metformin 1,000 mg tablet (Janumet) 1 tab PO DAILY Glucose 10/15/23 amoxicillin 875 mg-potassium clavulanate 125 mg tablet 1 tab PO Q12H 5 days #10 tabs 10/19/23 hydrocodone-acetaminophen 5-325mg 5mg-325mg 1 tab PO Q6H PRN pain 3 days #10 tabs 10/19/23 Hospital Course Operations cholecystecomy Procedures None Summary of Care Provided Minutes Spent on Discharge: 38 Hospital Course: Per HPI: The 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 78 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 w/ PMHx: Morbid obesity, HTN, HLD, Diabetes mellitus type II, Former tobacco use who presents to the [facility] ED on 10/15/23 with history of episode of lower midsternal chest discomfort with nausea with no radiation that occurred approximately 5 days prior following eating a heavy meal shrimp Jesus with resolution of discomfort the next day however again the evening prior to current presentation she was noted to have eaten a large sandwich as well as some cookies and donuts and had a similar episode of discomfort and eventually overnight while attempting to get up to use the restroom she felt in credibly weak and fatigued unfortunately falling with her leg stuck underneath the bed but could not get up until her daughter was able to help her and upon helping her she noted that her skin was yel lowed prompting ED evaluation. Patient denies any current pain in her right upper quadrant or epiga stric region at this time. She currently notes the discomfort to her right upper quadrant and epiga stric region is primary with palpation and rates it 5-6 out of 10 in severity or dull aching but wit h palpation sharp and can increase up to 8-9 out of 10 in severity. Workup in the ED included T98.1 , heart rate 82, BP 153/64, respiratory rate 16, 97% on room air, CBC with WBC 20.1, hemoglobin 13, platelet 128 with left shift, CMP with sodium 129, potassium 3.3 noted to be slightly hemolyzed thus may be falsely increased, chloride 97, carbon oxide 20, BUN/creatinine 32/1.43, GFR 38, glucose 158, T. bili 12.50, AST/ALT 209/257, alk phos 306, troponin 21, lipase 93, gallbladder ultrasound with solitary gallstone with contracted gallbladder and thickening of the wall, positive Canela sign, acu te cholecystitis cannot be excluded. In the ED patient ministered maintenance IV fluid, Zosyn as we ll as Zofran 4 mg IV x 1. Hospital Course: 1. Right upper quadrant abdominal pain consistent with cholecystitis/hyperbilirubinemia/BAY??? 78-year-old female presents to the hospital with right upper quadran (more content not included)...[facility]01-17-2024 Discharge summary Author Tirso Friend [facility] October 19, 2023 12:00pm Note Date/Time October 19, 2023 1 1:32am [facility] Medical Records Department [address] [place] [address] Instructions for Home/Discharge Instructions 10/19/23 1130 MR#: [id number] Acct: [id number] Name: PENNY MCKEON Rep #:[id number] : 1945 78 From: Tirso kellogg MD PCP: Dr. Laura Bowden, DO Status:ADM I N Discharge Instructions Diet Discharge Diet: Low fat / Low cholesterol and Carb Control Diet Dressing / Incision Call your doctor if your incision/area has: Continuous Slow Oozing, Sudden Increased Bleeding, Increased Redness and Foul Smelling Discharge Call your doctor if you observe: Fever of 101 or Higher, Shortness of breath, Dizziness, Fainting spells, Swelling in the ankles, Chest pain and Increased palpitations (irregular heartbeat) Drain: Suction Follow Up Care Test Results: Test results from this visit will be discussed in further detail at your follow- up appointment, if applicable. Discharge Plan Admission Admit Date/Time: 10/15/23 20:11 Attending Provider: Tirso Friend Primary Care Provider: Laura Bowden Consulting Providers: Caden Roy; Enma Otoole; Dennise Batres Instructions Additional Instructions / Restrictions: Cholecystectomy Diet ? Start light with soups and soft bland foods. You may advance diet as tolerated. Activity ? You may drive in 3-5 days but not while taking narcotic pain medication. ? I encourage walking. You may go up steps, one at a time. ? Do not swim or use hot tubs for 2 weeks. ? For comfort, you may use warm compresses or ice as needed for 15-20 minutes chuy time. Lifting ? You may lift up to 15 pounds for the 3 weeks. Dressings/Incision ? You may shower OVER your plastic dressings in 48 hours from your surgery ? Do NOT tub bathe for 1 week ? Leave plastic dressings on for 2 days. ? When plastic dressings are removed, you will find steri strips. It is okay to continue showering with them in place, pat them dry. ? You may remove steri-strips after 1 week. We recommend getting them soaking wet for easier removal. Drain Care You are going home with a drain. You are responsible to record the drainage character and amount each time you empty the drain. Keep drain site covered withgauze and tape. Change the dressing daily. Medications ? Anesthesia used during surgery and pain medications may cause constipation. I recommend initiating on the day of surgery a fiber supplement like, Metamucil, Citrucel, FiberCon, Benefiber, or a generic form of these medications. 1 heapingtablespoon in water daily. You may continue to utilize any bowel regimen or orallaxatives that you routinely take. ? As long as you are not intolerant to Tylenol, acetaminophen, ibuprofen, Motrin, Advil, Aleve, or similar medications, I would recommend transitioning tothese [id number] medicines as soon as possible instead of continued use ofnarcotic pain medication. Follow up ? You should call [facility] soon after surgery, at [phone] option 1 to make a follow up appointment for 7 days after your surgery. Discharge Orders/Prescriptions Prescriptions: New amoxicillin-pot clavulanate 875-125 mg tablet 1 tab PO Q12H 5 Days Qty: 10 0RF hydrocodone-acetaminophen 5-325 mg tablet 1 tab PO Q6H PRN (Reason: pain) 3 Days Qty: 10 0RF Continued carvedilol 25 mg tablet 25 mg PO Q12H atorvastatin 20 mg tablet 20 mg PO DAILY niacin 1,000 mg tablet extended release 24 hr 1,000 mg PO DAILY cetirizine 10 mg tablet 10 mg PO DAILY Patient Comments: TAKE ONE TABLET BY MOUTH EVERY DAY IN THE MORNING oxybutynin chloride 10 mg tablet extended release 24hr 10 mg PO DAILY levothyroxine 50 mcg tablet 50 mcg PO DAILY montelukast 10 mg tablet 10 mg PO DAILY ergocalciferol (vitamin D2) 1,250 mcg (50,000 unit) capsule 1,250 mcg PO DAILY Patient Comments: TAKE 1 CAPSULE (60981 UNITS) BY MOUTH ONCE A WEEK escitalopram oxalate 20 mg tablet 20 mg PO DAILY cholestyramine-aspartame [Cholestyramine Light] 4 gram powder in packet 1 ea PO DAILY Patient Comments: DISSOLVE 1 PACKET IN 2 TO 6 OUNCES OF WATER OR NONCARBONATED BEVERAGE TWO TIMES A DAY BEFORE MEALS AND DRINK Rx Instructions: orally daily; fenofibrate nanocrystallized 145 mg tablet 145 mg PO DAILY Hold Instructions: Pt has been DC'd Janumet 50-1,000 mg tablet 1 tab PO DAILY Myrbetriq 25 mg tablet extended release 24 hr 25 mg PO Q24H Hold Instructions: Pt has been DC'd Patient Comments: TAKE ONE TABLET BY MOUTH EVERY DAY SWALLOWING WHOLE WITH WATER. DO NOT CRUSH CHEW AND/OR DIVIDE. Jardiance 25 mg tablet 25 mg PO DAILY aspirin [Adult Aspirin Regimen] 81 mg tablet,delayed release (DR/EC) 81 mg PO DAILY Referrals / Follow Up: Laura Bowden DO [Primary Care Provider] - Within 1 Week Caden Roy MD [Med Staff - Active Staff] - (Please call our office to schedule a 1 week follow-up appointment) Disposition Disposition (needs filled in before D/C Order can be placed): Home, Self Care 10/19/23 1200<Electronically signed by Tirso Friend MD>Tirso Friend MD CC: Dr. Enma Otoole MD; Dr. Dennise Batres MD; Dr. Laura Bowden, DO; Dr. Caden Roy MD ~ Signed [facility] Work Phone: [phone]) 668-131001-17-2024 Progress note Author Brandie Bautistaith [facility] October 19, 2023 11:35am Note Date/Time October 19, 2023 1 0:39am [facility] Medical Records Department [address] [place] [address] Progress Note - Surgery 10/19/23 1039 MR#: [id number] Acct: [id number] Name: PENNY MCKEON Rep #:[id number] : 1945 78 From: Brandie JOLLEY PA-C PCP: Dr. Laura Bowden DO Status:ADM I N Location: [place] [address] Subjective Subjective Patient evaluated sitting at the side of her bed finishing breakfast. She notes feeling much improved this morning. She denies nausea, vomiting. She is tolerating a regular diet. She is urinating well. Positive flatus. Abdominal pain well controlled. Objective Data Objective Data Vital Signs: Vital Signs Temp Pulse Resp BP Pulse Ox O2 Del Method O2 Flow Rate 95.9 F L 63 18 140/67 H 95 CPAP 4 10/19/23 03:55 10/19/23 03:55 10/19/23 03:55 10/19/23 03:55 10/19/23 03:55 10/19/23 03:59 10/18/23 18:54 Oxygen Flow Rate (L/min) 4 Oxygen Delivery Method CPAP Weight: 267 lb 10.259 oz Body Mass Index (BMI) 45.9 Intake & Output: Intake and Output for Last 24 Hours 10/17/23 10/18/23 10/19/23 23:59 23:59 23:59 Intake Total 3672.08 / 3672.08 223. / 2235.00 Output Total Balance 3672.08 / 3672.08 33 / 1962.33 2235.00 / 2235.00 Lab / Micro Data 10/19/23 07:30 10/19/23 09:45 Labs: Laboratory Results - last 24 hr 10/18/23 17:15: POC Glucose 272 H 10/18/23 20:48: POC Glucose 288 H 10/19/23 06:47: POC Glucose 179 H 10/19/23 07:30: WBC 15.1 H, RBC 3.52 L, Hgb 11.1 L, Hct 33.3 L, MCV 94.6, MCH 31.5, MCHC 33.3, RDW Std Deviation 54.3 H, RDW Coeff of Jeff 15.9 H, Plt Count 191, MPV 11.2, Immature Gran % (Auto) 1.300 H, Neut % (Auto) 85.5 H, Lymph % (Auto) 7.8 L, [place] % (Auto) 5.2, Eos % (Auto) 0.0, Baso % (Auto) 0.2, Absolute Neuts (auto) 12.9 H, Absolute Lymphs (auto) 1.17, Nucleated RBC % 0, Sodium Cancelled, Potassium Cancelled, Chloride Cancelled, Carbon Dioxide Cancelled, Anion Gap Cancelled, BUN Cancelled, Creatinine Cancelled, Estim Creat Clear CalcCancelled, Est GFR (MDRD) Af Amer Cancelled, Est GFR (MDRD) Non-Af Cancelled, BUN/Creatinine Ratio Cancelled, Glucose Cancelled, Calcium Cancelled, Total Bilirubin Cancelled, AST Cancelled, ALT Cancelled, Alkaline Phosphatase Cancelled, Total Protein Cancelled, Albumin Cancelled, Globulin Cancelled, Albumin/Globulin Ratio Cancelled 10/19/23 09:45: Sodium 132 L, Potassium 3.9, Chloride 108 H, Carbon Dioxide 17.0L, Anion Gap 7, BUN 13, Creatinine 1.07 H, Estim Creat Clear Calc 57.46, Est GFR(MDRD) Af Amer 64, Est GFR (MDRD) Non-Af 53 L, BUN/Creatinine Ratio 12.1, Glucose 178 H, Calcium 9.3, Total Bilirubin 4.90 H, AST 51 H, ALT 192 H, Alkaline Phosphatase 351 H, Total Protein 6.5, Albumin 2.3 L, Globulin 4.2, Albumin/Globulin Ratio 0.5 L Micro: Microbiology 10/15/23 19:34 Urine, Random Urine Culture - Final Klebsiella aerogenes Rhythm Strip Rhythm Strip: Sinus Rhythm Rate: 80 Ectopy: None Physical Exam GI GI Narrative: Abdomen- obese, soft. Incision c/d/i. ABBIE drain intact. Assessment & Plan Assessment/Plan (1) Acute calculous cholecystitis: PLAN: I am following this patient in conjunction with Dr. Roy CMP reviewed with Dr. Roy from today Patient able to be discharged from a surgery standpoint Discharge on Augmentin x 5 days Discharge to home with drain Family will need drain teaching May shower in 48 hours from surgery Advance diet as tolerated at home Follow-up with Dr. 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 Next of kin: [place] law dictates a PRIORITY LIST for identifying legal decision-maker/legal next of kin in the following order (LNOK): 1st: The patient?s legal guardian, if any 2nd: The patient's spouse (if status is questionable, consult Risk Management) 3rd: The patient?s adult child(padmini) (majority, if multiple children) 4th: The patient?s parents 5th: The patient?s adult siblings (majority, if multiple children siblings) Charges/Coding Visit Charges Inpatient E&M: 26490 Subs Hosp L1 (post-op; no charge) 10/19/23 1135 <Electronically signed by Brandie JOLLEY PA-C> Cosigner Signature (if applicable): CC: ~ Signed [facility] Work Phone: 1([phone] 876-841701-16-2024 Progress note Author Patric Polanco [facility] October 18, 2023 4:29pm Note Date/Time October 18, 2023 4 :29pm [facility] Medical Records Department [address] [place] [address] Progress Note - GI 10/18/23 0700 MR#: [id number] Acct: [id number] Name: PENNY MCKEON Rep #:[id number] : 1945 78 From: Patric Polanco DO PCP: Dr. Laura Bowden, DO Status:ADM I N Location: [place] [address] Subjective Subjective Patient is scheduled to go down for laparoscopic cholecystectomy today. She is not have any abdominal pain. She denied any nausea. She slept well overnight. Afebrile overnight. Objective Data Objective Data Vital Signs: Vital Signs Temp Pulse Resp BP Pulse Ox O2 Del Method O2 Flow Rate 98.4 F 73 18 155/93 H 94 Room Air 7 10/18/23 14:56 10/18/23 14:56 10/18/23 15:00 10/18/23 14:56 10/18/23 14:56 10/18/23 15:00 10/18/23 14:56 Oxygen Flow Rate (L/min) 7 Oxygen Delivery Method Room Air Weight: 267 lb 10.259 oz Body Mass Index (BMI) 45.9 Intake & Output: Intake and Output for Last 24 Hours 10/16/23 10/17/23 10/18/23 23:59 23:59 23:59 Intake Total 2420 / 2420 3672.08 / 3672.08 1100 / 1100 Output Total Balance 2420 / 2420 3672.08 / 3672.08 1090 / 1090 Lab / Micro Data 10/18/23 06:00 10/18/23 06:00 Labs: Laboratory Results - last 24 hr 10/17/23 16:27: POC Glucose 104 10/17/23 22:47: POC Glucose 120 H 10/18/23 06:00: WBC 7.8, RBC 3.66 L, Hgb 11.3 L, Hct 34.1 L, MCV 93.2, MCH 30.9,MCHC 33.1, RDW Std Deviation 52.0 H, RDW Coeff of Jeff 15.2 H, Plt Count 157, MPV9.7, Immature Gran % (Auto) 3.200 H, Neut % (Auto) 60.9, Lymph % (Auto) 17.0 L, [place] % (Auto) 8.3, Eos % (Auto) 9.6 H, Baso % (Auto) 1.0, Absolute Neuts (auto) 4.8, Absolute Lymphs (auto) 1.33, Nucleated RBC % 0, Sodium 136, Potassium 3.5, Chloride 108 H, Carbon Dioxide 20.0 L, Anion Gap 8, BUN 14, Creatinine 0.89, Estim Creat Clear Calc 69.09, Est GFR (MDRD) Af Amer 79, Est GFR (MDRD) Non-Af 65, BUN/Creatinine Ratio 15.7, Glucose 119 H, Calcium 9.0, Total Bilirubin 9.30 H, AST 156 H, ALT 267 H, Alkaline Phosphatase 408 H, Total Protein 6.3 L, Albumin 2.4 L, Globulin 3.9, Albumin/Globulin Ratio 0.6 L 10/18/23 06:09: POC Glucose 117 H Micro: Microbiology 10/15/23 19:34 Urine, Random Urine Culture - Final Klebsiella aerogenes Rhythm Strip Rhythm Strip: Sinus Rhythm Rate: 80 Ectopy: None Physical Exam Narrative General: Alert, Oriented x3, Cooperative, No apparent distress HEENT: Atraumatic, PERRLA, EOMI, Normocephalic, scleral icterus Oral: Moist Mucosa Neck: Supple, No JVD Lungs: Diminished, Normal air movement, No rhonchi, No wheeze, No rales Cardiovascular: Regular rate, Regular Rhythm, Normal S1, Normal S2, No murmurs Abdomen: Soft, RUQ tender, Non-Distended, No Hepato-splenomegaly Extremities: No edema, Capillary Refill Less than 3 Seconds Skin: No rashes, No breakdown, jaundice Musculoskeletal: No Tenderness to Palpation of Joints or Extremities Neurological: No focal deficit, Motor Exam 5/5 strength throughout, Sensory examintact to light touch and pain Psych/Mental Status: Normal Affect, Appropriate Assessment & Plan Assessment/Plan (1) Acute calculous cholecystitis: PLAN: Plan Patient is a 78-year-old lady admitted with abdominal pain gallbladder ultrasound obtained did show Solitary gallstone with contracted gallbladder and thickening of the wall. Positive Canela sign. Acute cholecystitis could not be excluded patient admitted to regular nursing floor with consultation placed to general surgery as well as GI 1. Right upper quadrant abdominal pain with cholelithiasis with acute cholecystitis ? She does have findings of fatty liver disease but that does not explain her right upper quadrant pain. I do recommend liver biopsy which she will get done tomorrow after her cholecystectomy 2. Nonalcoholic fatty liver disease ? She will get a liver biopsy so we can see if there is any severe steatosis. She is on medical therapy for diabetes which has been known to improve her liverenzymes and the degree of steatosis 3. Jaundice -Differential diagnosis for cholestatic hepatitis is viral hepatitis, nonhepatitis viral infection (example CMV, EBV, autoimmune hepatitis, drug-induced hepatitis ), alpha-1 antitrypsin disease, hemochromatosis, amyloidosis, sarcoidosis. Blood work is pending for autoimmune and viral workup. And biopsies is pending for further workup. 10/18/23-patient will undergo laparoscopic cholecystectomy with liver biopsy today. Her LFTs are trending down in the right direction. This is more consistent with possible biliary obstructive disease, medication side effect or autoimmune disease. Biochemical workup for autoimmune disease was sent and we will wait for liver biopsy. 10/18/23 1629 <Electronically signed by Patric Friend DO> Cosigner Signature (if applicable): CC: ~ Signed [facility] Work Phone: [phone]) 809-764801-16-2024 Progress note Author Tirso Friend [facility] October 18, 2023 10:39am Note Date/Time October 18, 2023 1 0:40am [facility] Medical Records Department [address] [place] [address] Progress Note - Hospitalist 10/18/23 1038 MR#: [id number] Acct: [id number] Name: PENNY MCKEON Rep #:[id number] : 1945 78 From: Tirso kellogg MD PCP: Dr. Laura Bowden, DO Status:ADM I N Location: [place] [address] Subjective Subjective MRCP yesterday consistent with cholecystitis with duodenal diverticulum. No common bile duct obstruction plan for surgery today Objective Data Objective Data Vital Signs: Vital Signs Temp Pulse Resp BP Pulse Ox O2 Del Method 98.7 F 73 18 168/91 H 98 Room Air 10/18/23 07:39 10/18/23 07:39 10/18/23 07:46 10/18/23 07:39 10/18/23 07:39 10/18/23 07:46 Oxygen Delivery Method Room Air Weight: 267 lb 10.259 oz Body Mass Index (BMI) 45.9 Intake & Output: Intake and Output for Last 24 Hours 10/17/23 10/18/23 10/19/23 03:59 03:59 03:59 Intake Total 3470 / 3470 2672.08 / 2672.08 Balance 3470 / 3470 2672.08 / 2672.08 Lab / Micro Data 10/18/23 06:00 10/18/23 06:00 Labs: Laboratory Results - last 24 hr 10/17/23 06:15: Retic Count 1.29, Immature Retic Fraction 15.40, Retic Hgb Equivalent 35.3 H, Iron 98, TIBC 293, Iron Saturation 33.4, Ferritin 321 H 10/17/23 11:57: POC Glucose 126 H 10/17/23 16:27: POC Glucose 104 10/17/23 22:47: POC Glucose 120 H 10/18/23 06:00: WBC 7.8, RBC 3.66 L, Hgb 11.3 L, Hct 34.1 L, MCV 93.2, MCH 30.9,MCHC 33.1, RDW Std Deviation 52.0 H, RDW Coeff of Jeff 15.2 H, Plt Count 157, MPV9.7, Immature Gran % (Auto) 3.200 H, Neut % (Auto) 60.9, Lymph % (Auto) 17.0 L, [place] % (Auto) 8.3, Eos % (Auto) 9.6 H, Baso % (Auto) 1.0, Absolute Neuts (auto) 4.8, Absolute Lymphs (auto) 1.33, Nucleated RBC % 0, Sodium 136, Potassium 3.5, Chloride 108 H, Carbon Dioxide 20.0 L, Anion Gap 8, BUN 14, Creatinine 0.89, Estim Creat Clear Calc 69.09, Est GFR (MDRD) Af Amer 79, Est GFR (MDRD) Non-Af 65, BUN/Creatinine Ratio 15.7, Glucose 119 H, Calcium 9.0, Total Bilirubin 9.30 H, AST 156 H, ALT 267 H, Alkaline Phosphatase 408 H, Total Protein 6.3 L, Albumin 2.4 L, Globulin 3.9, Albumin/Globulin Ratio 0.6 L 10/18/23 06:09: POC Glucose 117 H Micro: Microbiology 10/15/23 19:34 Urine, Random Urine Culture - Final Klebsiella aerogenes Radiography Diagnostic Testing: Radiology Impression MRCP 10/17/23 09:30 IMPRESSION: 1. Large gallstone. Pericholecystic edema suggestive of acute cholecystitis. 2. Normal common bile duct. 3. 6 cm duodenal diverticulum. Electronically Signed: Heath Stauffer MD at 13:17 EST , Rhythm Strip Rhythm Strip: Sinus Rhythm Rate: 80 Ectopy: None Physical Exam Narrative General: Alert, Oriented x3, Cooperative, No apparent distress HEENT: Atraumatic, PERRLA, EOMI, Normocephalic, scleral icterus Oral: Moist Mucosa Neck: Supple, No JVD Lungs: Diminished, Normal air movement, No rhonchi, No wheeze, No rales Cardiovascular: Regular rate, Regular Rhythm, Normal S1, Normal S2, No murmurs Abdomen: Soft, RUQ tender, Non-Distended, No Hepato-splenomegaly Extremities: No edema, Capillary Refill Less than 3 Seconds Skin: No rashes, No breakdown, jaundice Musculoskeletal: No Tenderness to Palpation of Joints or Extremities Neurological: No focal deficit, Motor Exam 5/5 strength throughout, Sensory examintact to light touch and pain Psych/Mental Status: Normal Affect, Appropriate Assessment & Plan Assessment/Plan (1) Acute calculous cholecystitis: PLAN: Plan 1. Right upper quadrant abdominal pain ?? Cholelithiasis with acute cholecystitis ? Patient admitted to regular nursing floor for symptom management as part of her evaluation consult was placed to general surgery as well as GI. Decision for patient to undergo HIDA scan deferred to general surgery. 10/17/2023: T. bili is coming down slowly MRCP pending 10/18/2023: Plan for cholecystectomy today MRCP demonstrated cholecystitis yesterday can continue Zosyn for another 24 hours postcholecystectomy 2. Nonalcoholic fatty liver disease ? GI consulted 3. Diabetes mellitus type II -patient's oral hypoglycemics held. Placed on long acting insulin, Accu-Cheks a.c. and at bedtime and covered with sliding scale insulin ? We will monitor make adjustments as necessary 4. Dyslipidemia -Patient is on statin therapy as well as fenofibrate, continued at home dose 5. Class III obesity with BMI of 45.8 ? Complicating care weight loss advised 6. Hypothyroidism - Patient is on levothyroxine home dose continued 7. Hypertension - Blood pressure controlled, home medications continued with dose adjustment as needed 8. Overactive bladder ? Patient is on Myrbetriq as well as oxybutynin at home 9. Hypokalemia ? Corrected per protocol repeat labs ordered for monitoring next 10. Depression with anxiety ? Patient is on escitalopram did continue 11. Allergic rhinitis ? 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 Next of kin: [place] law dictates a PRIORITY LIST for identifying legal decision-maker/legal next of kin in the following order (LNOK): 1st: The patient?s legal guardian, if any 2nd: The patient's spouse (if status is questionable, consult Risk Management) 3rd: The patient?s adult child(padmini) (majority, if multiple children) 4th: The patient?s parents 5th: The patient?s adult siblings (majority, if multiple children siblings) Charges/Coding Visit Charges Inpatient E&M: 06486 Subs Hosp L2 10/18/23 1039 <Electronically signed by Tirso Friend MD> Cosigner Signature (if applicable): CC: ~ Signed [facility] Work Phone: 1(820) 445-758601-15-2024 Consult note Author Patric Polanco [facility] October 17, 2023 4:20pm Note Date/Time October 17, 2023 4 :11pm [facility] Medical Records Department [address] [place] [address] Consultation - GI 10/17/23 1610 MR#: [id number] Acct: [id number] Name: PENNY MCKEON Rep #:[id number] : 1945 78 From: Patric Polanco DO PCP: Dr. Laura Bowden, DO Status:ADM I N Location: [place] [address] HPI Consult Data Date of Consult: 10/17/23 HPI Narrative Reason for Consultation: cholestatic hepatitis and jaundice HPI Narrative: PENNY MCKEON, is a 78 F who presents with 5 days ago patient had an episode of lower midsternal chest discomfort with nausea that did not radiate anywhere or make her dyspneic that occurred an hour or so after eating homemade shrimp Jesus. She states the next day the pain was gone she felt she did not need to go to theER because it did not radiate. Last night after eating a doughnut, some cookies, and a submarine sandwich, she had another episode of this discomfort, and overnight she got out of bed use the bathroom but fell to the floor because her legs were feeling weak and she was unable to get up partially because her legs were stuck underneath the bed, she denies injuring herself but was not ableto get up and come here until her daughter came to get her and help, upon which her daughter noticed that she was jaundiced which is new. No history of any abdominal surgeries. She is not having pain right now. She has a past medical history of morbid obesity, HTN, HLD, Diabetes mellitus type II. She currently notes the discomfortto her right upper quadrant and epigastric region is primary with palpation and rates it 5-6 out of 10 in severity or dull aching but with palpation sharp and can increase up to 8-9 out of 10 in severity. Workup in the ED included T98.1, heart rate 82, BP 153/64, respiratory rate 16, 97% on room air, CBC with WBC 20.1, hemoglobin 13, platelet 128 with left shift, CMP with sodium 129, potassium 3.3 noted to be slightly hemolyzed thus may be falsely increased, chloride 97, carbon oxide 20, BUN/creatinine 32/1.43, GFR 38, glucose 158, T. bili 12.50, AST/ALT 209/257, alk phos 306, troponin 21, lipase 93, gallbladder ultrasound with solitary gallstone with contracted gallbladder and thickening of the wall, positive Canela sign, acute cholecystitis cannot be excluded. CT scan abdomen pelvis did show a gallbladder with signs of acute cholecystitis and cholelithiasis. There were no signs of choledocholithiasis. 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 She also had MRCP that showed the same findings as the CT scan abdomen pelvis. There was no choledocholithiasis seen on either image. [facility] Medical History Allergic rhinitis Anxiety and depression CKD (chronic kidney disease) Hyperlipidemia Hypertension Hypothyroidism Morbid obesity Type 2 diabetes mellitus Home Medications aspirin 81 mg tablet,delayed release (Adult Aspirin Regimen) 81 mg PO DAILY Blood thinner 10/15/23 [History Last Taken Unknown] atorvastatin 20 mg tablet 20 mg PO DAILY cholesterol 10/15/23 [History Last Taken Unknown] carvedilol 25 mg tablet 25 mg PO Q12H Blood pres 10/15/23 [History Last Taken Unknown] cetirizine 10 mg tablet 10 mg PO DAILY Allergies 10/15/23 [History Last Taken Unknown] cholestyramine-aspartame 4 gram oral powder for susp in a packet (CholestyramineLight) 1 ea PO DAILY cholesterol 10/15/23 [History Last Taken Unknown] empagliflozin 25 mg tablet (Jardiance) 25 mg PO DAILY Glucose control 10/15/23 [History Last Taken Unknown] ergocalciferol (vitamin D2) 1,250 mcg (50,000 unit) capsule 1,250 mcg PO DAILY Vit D 10/15/23 [History Last Taken Unknown] escitalopram oxalate 20 mg tablet 20 mg PO DAILY Anxiety 10/15/23 [History Last Taken Unknown] fenofibrate nanocrystallized 145 mg tablet 145 mg PO DAILY cholesterol 10/15/23 [History Last Taken Unknown] levothyroxine 50 mcg tablet 50 mcg PO DAILY thyroid 10/15/23 [History Last Taken Unknown] mirabegron 25 mg tablet,extended release 24 hr (Myrbetriq) 25 mg PO Q24H Pqsignw66/13/24 [History Last Taken Unknown] montelukast 10 mg tablet 10 mg PO DAILY Wheezing 10/15/23 [History Last Taken Unknown] niacin 1,000 mg tablet,extended release 24 hr 1,000 mg PO DAILY cholesterol 10/15/23 [History Last Taken Unknown] oxybutynin chloride 10 mg tablet,extended release 24 hr 10 mg PO DAILY Bladder 10/15/23 [History Last Taken Unknown] sitagliptin phosphate 50 mg-metformin 1,000 mg tablet (Janumet) 1 tab PO DAILY Glucose 10/15/23 [History Last Taken Unknown] Allergy/AdvReac Type Severity Reaction Status Date / Time No Known Allergies Allergy Verified 10/15/23 17:26 Family History (Updated 10/15/23 @ 20:[address] Enma Otoole MD) Mother Cancer Diabetes Father Heart disease Surgical History S/P left knee arthroscopy Social History (Updated 10/15/23 @ 20:[address] Enma Otoole MD) household members: none Smoking Status: Former smoker how long ago did patient quit smoking: Smoked age 22-until 30 years old, 1 ppd until quit. alcohol intake: never substance use type: does not use ROS ROS Narrative Admission Review of Systems: CONSTITUTIONAL: No weight loss, fever, chills, + weakness or fatigue. HEENT: + Scleral icterus. Eyes: No visual loss, blurred vision, double vision. Ears, Nose, Throat: No hearing loss, sneezing, congestion, runny nose or sore throat. SKIN: No rash or itching, lesions, wounds. + Jaundiced appearance. CARDIOVASCULAR: No chest pain, chest pressure or chest discomfort, palpitations,edema, orthopnea, syncopal events. RESPIRATORY: No shortness of breath, cough or sputum, wheezing, hemoptysis. GASTROINTESTINAL: + anorexia, nausea without vomiting, abdominal pain. No diarrhea, melena, BRBPR. GENITOURINARY: No dysuria, frequency, urgency or retention. NEUROLOGICAL: No headache, dizziness, syncope, paralysis, ataxia, numbness or tingling in the extremities, focal weakness, change in bowel or bladder control,seizure. MUSCULOSKELETAL: + muscle, back pain, joint pain or stiffness. HEMATOLOGIC: No anemia, bleeding or bruising. LYMPHATICS: No enlarged nodes. No history of splenectomy. PSYCHIATRIC: + History of anxiety and depression. ENDOCRINOLOGIC: No reports of sweating, cold or heat intolerance. No polyuria orpolydipsia. ALLERGIES: + History of allergic rhinitis. Physical Exam Narrative General: Alert, Oriented x3, Cooperative, No apparent distress HEENT: Atraumatic, PERRLA, EOMI, Normocephalic, scleral icterus Oral: Moist Mucosa Neck: Supple, No JVD Lungs: Diminished, Normal air movement, No rhonchi, No wheeze, No rales Cardiovascular: Regular rate, Regular Rhythm, Normal S1, Normal S2, No murmurs Abdomen: Soft, RUQ tender, Non-Distended, No Hepato-splenomegaly Extremities: No edema, Capillary Refill Less than 3 Seconds Skin: No rashes, No breakdown, jaundice Musculoskeletal: No Tenderness to Palpation of Joints or Extremities Neurological: No focal deficit, Motor Exam 5/5 strength throughout, Sensory examintact to light touch and pain Psych/Mental Status: Normal Affect, Appropriate Lab / Micro Data 10/17/23 06:15 10/17/23 06:15 Labs: Laboratory Results - last 24 hr 10/16/23 16:43: POC Glucose 114 H 10/16/23 21:43: POC Glucose 210 H 10/17/23 06:15: WBC 8.7, RBC 3.74 L, Hgb 11.7 L, Hct 35.0 L, MCV 93.6, MCH 31.3,MCHC 33.4, RDW Std Deviation 51.9 H, RDW Coeff of Jeff 15.1 H, Plt Count 145 L, MPV 9.3, Immature Gran % (Auto) 1.700 H, Neut % (Auto) 69.2, Lymph % (Auto) 11.9L, [place] % (Auto) 7.7, Eos % (Auto) 9.0 H, Baso % (Auto) 0.5, Absolute Neuts (auto) 6.0, Absolute Lymphs (auto) 1.03, Nucleated RBC % 0, Retic Count 1.29, Immature Retic Fraction 15.40, Retic Hgb Equivalent 35.3 H, Sodium 137, Potassium 3.5, Chloride 108 H, Carbon Dioxide 21.0, Anion Gap 8, BUN 24 H, Creatinine 1.15 H, Estim Creat Clear Calc 53.39, Est GFR (MDRD) Af Amer 59 L, Est GFR (MDRD) Non-Af 49 L, BUN/Creatinine Ratio 20.9 H, Glucose 136 H, Calcium 8.9, Phosphorus 3.4, Magnesium 2.2, Iron 98, TIBC 293, Iron Saturation 33.4, Ferritin 321 H, Total Bilirubin 11.00 H, AST 281 H, ALT 307 H, Alkaline Phosphatase 406 H, Total Protein 6.1 L, Albumin 2.4 L, Globulin 3.7, Albumin/Globulin Ratio 0.6 L 10/17/23 06:17: POC Glucose 151 H 10/17/23 11:57: POC Glucose 126 H Micro: Microbiology 10/15/23 19:34 Urine, Random Urine Culture - Final Klebsiella aerogenes Rhythm Strip Rhythm Strip: Sinus Rhythm Rate: 80 Ectopy: None Imagaing Radiology Impression MRCP 10/17/23 09:30 IMPRESSION: 1. Large gallstone. Pericholecystic edema suggestive of acute cholecystitis. 2. Normal common bile duct. 3. 6 cm duodenal diverticulum. Electronically Signed: Heath Stauffer MD at 13:17 EST , Assessment & Plan Assessment/Plan (1) Acute calculous cholecystitis: PLAN: Plan Patient is a 78-year-old lady admitted with abdominal pain gallbladder ultrasound obtained did show Solitary gallstone with contracted gallbladder and thickening of the wall. Positive Canela sign. Acute cholecystitis could not be excluded patient admitted to regular nursing floor with consultation placed to general surgery as well as GI 1. Right upper quadrant abdominal pain with cholelithiasis with acute cholecystitis ? She does have findings of fatty liver disease but that does not explain her right upper quadrant pain. I do recommend liver biopsy which she will get done tomorrow after her cholecystectomy 2. Nonalcoholic fatty liver disease ? She will get a liver biopsy so we can see if there is any severe steatosis. She is on medical therapy for diabetes which has been known to improve her liverenzymes and the degree of steatosis 3. Jaundice -Differential diagnosis for cholestatic hepatitis is viral hepatitis, nonhepatitis viral infection (example CMV, EBV, autoimmune hepatitis, drug-induced hepatitis ), alpha-1 antitrypsin disease, hemochromatosis, amyloidosis, sarcoidosis. Blood work is pending for autoimmune and viral workup. And biopsies is pending for further workup. [employer] Reflex Medical hold order details:: IF a medical hold is selected below, a suggested order for a MEDICAL HOLD will reflex upon signing the document. Next of kin: [place] law dictates a PRIORITY LIST for identifying legal decision-maker/legal next of kin in the following order (LNOK): 1st: The patient?s legal guardian, if any 2nd: The patient's spouse (if status is questionable, consult Risk Management) 3rd: The patient?s adult child(padmini) (majority, if multiple children) 4th: The patient?s parents 5th: The patient?s adult siblings (majority, if multiple children siblings) Charges/Coding Visit Charges Inpatient E&M: 30628 Init Hosp L3 10/17/23 1620 <Electronically signed by Patric Polanco DO> Cosigner Signature (if applicable): CC: Dr. Enma Otoole MD; Dr. Dennise Batres MD; Dr. Laura Bowden DO; Dr. Caden Roy MD~ Signed [facility] Work Phone: [phone] 976-775501-15-2024 Progress note Author Tirso Friend [facility] October 17, 2023 12:09pm Note Date/Time October 17, 2023 1 2:10pm [facility] Medical Records Department [address] [place] [address] Progress Note - Hospitalist 10/17/23 1208 MR#: [id number] Acct: [id number] Name: PENNY MCKEON Rep #:[id number] : 1945 78 From: Tirso kellogg MD PCP: Dr. Laura Bowden, DO Status:ADM I N Location: [place] 151731-1 Subjective Subjective Doing well, mild right upper quadrant abdominal pain. She is still jaundiced Objective Data Objective Data Vital Signs: Vital Signs Temp Pulse Resp BP Pulse Ox O2 Del Method 98.7 F 64 18 137/71 H 98 Room Air 10/17/23 09:05 10/17/23 09:05 10/17/23 10:44 10/17/23 09:05 10/17/23 09:05 10/17/23 09:05 Oxygen Delivery Method Room Air Weight: 266 lb 15.677 oz Body Mass Index (BMI) 45.6 Intake & Output: Intake and Output for Last 24 Hours 10/16/23 10/17/23 10/18/23 03:59 03:59 03:59 Intake Total 868.33 / 868.33 3470 / 3470 50 / 50 Balance 868.33 / 868.33 3470 / 3470 50 / 50 Lab / Micro Data 10/17/23 06:15 10/17/23 06:15 Labs: Laboratory Results - last 24 hr 10/16/23 11:25: POC Glucose 125 H 10/16/23 16:43: POC Glucose 114 H 10/16/23 21:43: POC Glucose 210 H 10/17/23 06:15: WBC 8.7, RBC 3.74 L, Hgb 11.7 L, Hct 35.0 L, MCV 93.6, MCH 31.3,MCHC 33.4, RDW Std Deviation 51.9 H, RDW Coeff of Jeff 15.1 H, Plt Count 145 L, MPV 9.3, Immature Gran % (Auto) 1.700 H, Neut % (Auto) 69.2, Lymph % (Auto) 11.9L, [place] % (Auto) 7.7, Eos % (Auto) 9.0 H, Baso % (Auto) 0.5, Absolute Neuts (auto) 6.0, Absolute Lymphs (auto) 1.03, Nucleated RBC % 0, Sodium 137, Potassium 3.5, Chloride 108 H, Carbon Dioxide 21.0, Anion Gap 8, BUN 24 H, Creatinine 1.15 H, Estim Creat Clear Calc 53.39, Est GFR (MDRD) Af Amer 59 L, Est GFR (MDRD) Non-Af 49 L, BUN/Creatinine Ratio 20.9 H, Glucose 136 H, Calcium 8.9, Phosphorus 3.4, Magnesium 2.2, Total Bilirubin 11.00 H, AST 281 H, ALT 307 H, Alkaline Phosphatase 406 H, Total Protein 6.1 L, Albumin 2.4 L, Globulin 3.7,Albumin/Globulin Ratio 0.6 L 10/17/23 06:17: POC Glucose 151 H Micro: Microbiology 10/15/23 19:34 Urine, Random Urine Culture - Preliminary GNR lactose supervisor plastering Rhythm Strip Rhythm Strip: Sinus Rhythm Rate: 80 Ectopy: None Physical Exam Narrative General: Alert, Oriented x3, Cooperative, No apparent distress HEENT: Atraumatic, PERRLA, EOMI, Normocephalic, scleral icterus Oral: Moist Mucosa Neck: Supple, No JVD Lungs: Diminished, Normal air movement, No rhonchi, No wheeze, No rales Cardiovascular: Regular rate, Regular Rhythm, Normal S1, Normal S2, No murmurs Abdomen: Soft, RUQ tender, Non-Distended, No Hepato-splenomegaly Extremities: No edema, Capillary Refill Less than 3 Seconds Skin: No rashes, No breakdown, jaundice Musculoskeletal: No Tenderness to Palpation of Joints or Extremities Neurological: No focal deficit, Motor Exam 5/5 strength throughout, Sensory examintact to light touch and pain Psych/Mental Status: Normal Affect, Appropriate Assessment & Plan Assessment/Plan (1) Acute calculous cholecystitis: PLAN: Plan 1. Right upper quadrant abdominal pain ?? Cholelithiasis with acute cholecystitis ? Patient admitted to regular nursing floor for symptom management as part of her evaluation consult was placed to general surgery as well as GI. Decision for patient to undergo HIDA scan deferred to general surgery. 10/17/2023: T. bili is coming down slowly MRCP pending 2. Nonalcoholic fatty liver disease ? GI consulted 3. Diabetes mellitus type II -patient's oral hypoglycemics held. Placed on long acting insulin, Accu-Cheks a.c. and at bedtime and covered with sliding scale insulin ? We will monitor make adjustments as necessary 4. Dyslipidemia -Patient is on statin therapy as well as fenofibrate, continued at home dose 5. Class III obesity with BMI of 45.8 ? Complicating care weight loss advised 6. Hypothyroidism - Patient is on levothyroxine home dose continued 7. Hypertension - Blood pressure controlled, home medications continued with dose adjustment as needed 8. Overactive bladder ? Patient is on Myrbetriq as well as oxybutynin at home 9. Hypokalemia ? Corrected per protocol repeat labs ordered for monitoring next 10. Depression with anxiety ? Patient is on escitalopram did continue 11. Allergic rhinitis ? 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 Next of kin: [place] law dictates a PRIORITY LIST for identifying legal decision-maker/legal next of kin in the following order (LNOK): 1st: The patient?s legal guardian, if any 2nd: The patient's spouse (if status is questionable, consult Risk Management) 3rd: The patient?s adult child(padmini) (majority, if multiple children) 4th: The patient?s parents 5th: The patient?s adult siblings (majority, if multiple children siblings) Charges/Coding Visit Charges Inpatient E&M: 99986 Subs Hosp L2 10/17/23 1209 <Electronically signed by Tirso Friend MD> Cosigner Signature (if applicable): CC: ~ Signed [facility] Work Phone: [phone] 241-689501-15-2024 Progress note Author Caden Roy [facility] October 17, 2023 9:10am Note Date/Time October 17, 2023 9 :10am [facility] Medical Records Department [address] [place] [address] Progress Note - Surgery 10/17/23 0908 MR#: [id number] Acct: [id number] Name: PENNY MCKEON Rep #:[id number] : 1945 78 From: Caden Black PCP: Dr. Laura Bowden, DO Status:ADM I N Location: [place] DH[facility]-5 Subjective Subjective Patient seen and examined during AM rounds. She is found sitting out of bed in a chair. Her daughter is just assisted her with getting a shower. Jointly theystate that she is imminently due down at the MRI. Mrs. Mckeon states that she iseager to go home and wants to have her surgery. She shares that her abdominal pain is improved. Objective Data Objective Data Vital Signs: Vital Signs Temp Pulse Resp BP Pulse Ox O2 Del Method 98.7 F 64 18 137/71 H 98 Room Air 10/17/23 09:05 10/17/23 09:05 10/17/23 09:05 10/17/23 09:05 10/17/23 09:05 10/17/23 09:05 Oxygen Delivery Method Room Air Weight: 266 lb 15.677 oz Body Mass Index (BMI) 45.6 Intake & Output: Intake and Output for Last 24 Hours 10/15/23 10/16/23 10/17/23 23:59 23:59 23:59 Intake Total 868.33 / 868.33 2420 / 2420 1050 / 1050 Balance 868.33 / 868.33 2420 / 2420 1050 / 1050 Lab / Micro Data 10/17/23 06:15 10/17/23 06:15 Labs: Laboratory Results - last 24 hr 10/16/23 06:20: Sodium 137, Potassium 3.7, Chloride 105, Carbon Dioxide 18.0 L, Anion Gap 14, BUN 30 H, Creatinine 1.24 H, Estim Creat Clear Calc 49.46, Est GFR(MDRD) Af Amer 54 L, Est GFR (MDRD) Non-Af 45 L, BUN/Creatinine Ratio 24.2 H, Glucose 115 H, Hemoglobin A1c 6.7 H, Calcium 8.9, Total Bilirubin 12.20 H, AST 249 H, ALT 265 H, Alkaline Phosphatase 349 H, Total Protein 6.3 L, Albumin 2.5 L, Globulin 3.8, Albumin/Globulin Ratio 0.7 L, TSH 1.89 10/16/23 11:25: POC Glucose 125 H 10/16/23 16:43: POC Glucose 114 H 10/16/23 21:43: POC Glucose 210 H 10/17/23 06:15: WBC 8.7, RBC 3.74 L, Hgb 11.7 L, Hct 35.0 L, MCV 93.6, MCH 31.3,MCHC 33.4, RDW Std Deviation 51.9 H, RDW Coeff of Jeff 15.1 H, Plt Count 145 L, MPV 9.3, Immature Gran % (Auto) 1.700 H, Neut % (Auto) 69.2, Lymph % (Auto) 11.9L, [place] % (Auto) 7.7, Eos % (Auto) 9.0 H, Baso % (Auto) 0.5, Absolute Neuts (auto) 6.0, Absolute Lymphs (auto) 1.03, Nucleated RBC % 0, Sodium 137, Potassium 3.5, Chloride 108 H, Carbon Dioxide 21.0, Anion Gap 8, BUN 24 H, Creatinine 1.15 H, Estim Creat Clear Calc 53.39, Est GFR (MDRD) Af Amer 59 L, Est GFR (MDRD) Non-Af 49 L, BUN/Creatinine Ratio 20.9 H, Glucose 136 H, Calcium 8.9, Phosphorus 3.4, Magnesium 2.2, Total Bilirubin 11.00 H, AST 281 H, ALT 307 H, Alkaline Phosphatase 406 H, Total Protein 6.1 L, Albumin 2.4 L, Globulin 3.7,Albumin/Globulin Ratio 0.6 L 10/17/23 06:17: POC Glucose 151 H Micro: Microbiology 10/15/23 19:34 Urine, Random Urine Culture - Preliminary GNR lactose supervisor plastering Rhythm Strip Rhythm Strip: Sinus Rhythm Rate: 80 Ectopy: None Physical Exam Narrative No acute distress, jaundiced Const oriented x3 Resp normal respiratory effort GI GI Narrative: Nondistended, soft, tender to palpation right upper quadrant with negative Canela sign Assessment & Plan Assessment/Plan (1) Acute calculous cholecystitis: (2) Acquired hyperbilirubinemia: (3) Elevated liver enzymes: PLAN: Plan Patient is a 78-year-old female who presents for acute onset abdominal pain withassociated prodromal period of similar symptoms and some more subacute symptoms of fatigue and abnormal bowel movements. She is hospital day 2 for acute cholecystitis with exceptionally elevated bilirubin. Workup as to the cause of the latter finding is ongoing with MRI expected later today. GI consultation pending. Will await the results of these 2 pieces of patient's care plan beforediscussing possible laparoscopic cholecystectomy. For the interim recommend continued trending of CMP and empiric IV antibiotic coverage as labs indicate persistent impairment of biliary drainage. Charges/Coding Visit Charges Inpatient E&M: 39240 Subs Hosp L2 10/17/23 0910 <Electronically signed by Caden Roy MD> Cosigner Signature (if applicable): CC: ~ Signed [facility] Work Phone: [phone] Consult note Author Caden Roy [facility] October 16, 2023 2:18pm Note Date/Time October 16, 2023 8 :05am [facility] Medical Records Department [address] [place] [address] Consultation - Surgical 10/16/23 0804 MR#: [id number] Acct: [id number] Name: PENNY MCKEON Rep #:[id number] : 1945 78 From: Caden Black PCP: Dr. Laura Bowden, DO Status:ADM I N Location: [place] [address] Assessment & Plan Assessment/Plan (1) Acute calculous cholecystitis: (2) Acquired hyperbilirubinemia: (3) Elevated liver enzymes: PLAN: Plan Patient is a 78-year-old female who presents for acute onset abdominal pain withassociated prodromal period of similar symptoms and some more subacute symptoms of fatigue and abnormal bowel movements. While she is markedly tender in the right upper quadrant over her gallbladder I find it unusual to have acute cholecystitis with such a high bilirubin. This is especially unusual given her nondilated common bile duct on either ultrasound or CT imaging. Although patient had a rather acute experience of pain, her reports of generally feeling unwelland this unusual presentation raise the possibility for potential more insidiousetiology such as a neoplasm. It is also possible that her large gallbladder neck gallstone could be contributing Mirizzi?type compression of the common hepatic/common bile duct system, but the size of the stone is not terribly exceptional. Case has been discussed with with gastroenterology who is still yet to evaluate the patient. Preliminarily we are just discussing potential forMRCP. In the interim recommend n.p.o., IV fluids, empiric IV antibiotic coverage to mitigate patient's risk for cholangitis, and trending of her comprehensive metabolic panel. HPI Consult Data Date of Consult: 10/16/23 HPI Narrative Reason for Consultation: Concern for acute cholecystitis HPI Narrative: PENNY MCKEON, is a 78 F who presented to [facility] after she had been found down at her home. Her daughter who accompanies her in her room provides much of the history. She shares that they celebrated patient's birthday on , 2021 and she states that patient was in good spirits overall feeling well at that time. They do share that they enjoyed vegetables, [employer], cookie cake, and donuts for their meal. Then approximately 2 AM the following morning patient reports she developed severe pain and tried to get outof bed but slid down to the floor. She was finally discovered by her daughter 30 hours later and brought in for further evaluation. Patient states that she was convinced this was noncardiac pain as although it was chest pain it felt worse with deep breathing. Patient's ER workup was notable for elevated liver function testing and markedlyelevated bilirubin (greater than 12). Initially emergency medicine had performed only right upper quadrant ultrasound which showed a contracted gallbladder with a large gallstone in the gallbladder neck. There was some gallbladder wallthickening and radiology noted that cute cholecystitis could not be excluded. Upon noting patient's markedly elevated bilirubin and the otherwise limited information from her ultrasound I recommended performing CT of the abdomen pelvis with oral contrast (as patient had elevated creatinine on presentation). Patient and her daughter confirm that there is a prior episode of pain approximately 6 days ago after some [employer] for dinner. However, this was self-limited and patient seemed fine thereafter. They also confirmed that Mrs. Bhattias been generally feeling poorly. By this they detail what to say that she has been more tired and has had a poor appetite. She is also noted some diarrhea. Her primary care provider ordered a stool assay and she was determined to be negative for C. difficile but positive for another infectious concern and was a started on antibiotics. She is also scheduled to see a oriental medicine practitioner but canceled on the account of her symptoms. Through this. If feeling poorly Mrs. Mckeon reports a weight loss of approximately 23 pounds. Patient medically has a history of hypertension, hyperlipidemia, morbid obesity,obstructive sleep apnea on CPAP, well-controlled diabetes (she states that her last A1c was 7) and chronic kidney disease stage III. She has not ever undergonea surgery. [facility] Medical History Allergic rhinitis Anxiety and depression CKD (chronic kidney disease) Hyperlipidemia Hypertension Hypothyroidism Morbid obesity Type 2 diabetes mellitus Home Medications aspirin 81 mg tablet,delayed release (Adult Aspirin Regimen) 81 mg PO DAILY Blood thinner 10/15/23 [History Last Taken Unknown] atorvastatin 20 mg tablet 20 mg PO DAILY cholesterol 10/15/23 [History Last Taken Unknown] carvedilol 25 mg tablet 25 mg PO Q12H Blood pres 10/15/23 [History Last Taken Unknown] cetirizine 10 mg tablet 10 mg PO DAILY Allergies 10/15/23 [History Last Taken Unknown] cholestyramine-aspartame 4 gram oral powder for susp in a packet (CholestyramineLight) 1 ea PO DAILY cholesterol 10/15/23 [History Last Taken Unknown] empagliflozin 25 mg tablet (Jardiance) 25 mg PO DAILY Glucose control 10/15/23 [History Last Taken Unknown] ergocalciferol (vitamin D2) 1,250 mcg (50,000 unit) capsule 1,250 mcg PO DAILY Vit D 10/15/23 [History Last Taken Unknown] escitalopram oxalate 20 mg tablet 20 mg PO DAILY Anxiety 10/15/23 [History Last Taken Unknown] fenofibrate nanocrystallized 145 mg tablet 145 mg PO DAILY cholesterol 10/15/23 [History Last Taken Unknown] levothyroxine 50 mcg tablet 50 mcg PO DAILY thyroid 10/15/23 [History Last Taken Unknown] mirabegron 25 mg tablet,extended release 24 hr (Myrbetriq) 25 mg PO Q24H Sdslqab50/13/24 [History Last Taken Unknown] montelukast 10 mg tablet 10 mg PO DAILY Wheezing 10/15/23 [History Last Taken Unknown] niacin 1,000 mg tablet,extended release 24 hr 1,000 mg PO DAILY cholesterol 10/15/23 [History Last Taken Unknown] oxybutynin chloride 10 mg tablet,extended release 24 hr 10 mg PO DAILY Bladder 10/15/23 [History Last Taken Unknown] sitagliptin phosphate 50 mg-metformin 1,000 mg tablet (Janumet) 1 tab PO DAILY Glucose 10/15/23 [History Last Taken Unknown] Allergy/AdvReac Type Severity Reaction Status Date / Time No Known Allergies Allergy Verified 10/15/23 17:26 Family History (Updated 10/15/23 @ 20:[address] Enma tOoole MD) Mother Cancer Diabetes Father Heart disease Surgical History S/P left knee arthroscopy Social History (Updated 10/15/23 @ 20:[address] Enma Otoole MD) household members: none Smoking Status: Former smoker how long ago did patient quit smoking: Smoked age 22-until 30 years old, 1 ppd until quit. alcohol intake: never substance use type: does not use Physical Exam Const alert, oriented x3 and well nourished Constitutional Narrative: Jaundiced General Appearance: cooperative Nutritional Appearance: obese morbidly obese GI GI Narrative: Morbidly obese, no scars, no visible hernia, nondistended, soft, tender to palpation right upper quadrant with mildly positive Canela sign Lab / Micro Data 10/16/23 06:20 10/16/23 06:20 Labs: Laboratory Results - last 24 hr 10/15/23 17:20: WBC 20.1 H, RBC 4.09 L, Hgb 13.0, Hct 37.4, MCV 91.4, MCH 31.8, MCHC 34.8, RDW Std Deviation 48.5 H, RDW Coeff of Jeff 14.3, Plt Count 128 L, MPV9.9, Immature Gran % (Auto) 0.800, Neut % (Auto) 83.6 H, Lymph % (Auto) 5.3 L, [place] % (Auto) 6.0, Eos % (Auto) 3.9, Baso % (Auto) 0.4, Absolute Neuts (auto) 16.8 H, Absolute Lymphs (auto) 1.07, Nucleated RBC % 0, Sodium 129 L, Potassium 3.3 L, Chloride 97 L, Carbon Dioxide 20.0 L, Anion Gap 12, BUN 33 H, Creatinine 1.43 H, Estim Creat Clear Calc 45.05, Est GFR (MDRD) Af Amer 46 L, Est GFR (MDRD) Non-Af 38 L, BUN/Creatinine Ratio 23.1 H, Glucose 158 H, Calcium 9.3, Magnesium 1.4 L, Total Bilirubin 12.50 H, AST 209 H, ALT 257 H, Alkaline Phosphatase 306 H, Troponin I High Sens 21, Total Protein 6.9, Albumin 2.7 L, Globulin 4.2, Albumin/Globulin Ratio 0.6 L, Lipase 93 H 10/15/23 19:34: Urine Color Yellow, Urine Clarity Clear, Urine pH 6.5, Ur Specific [place] 1.005, Urine Protein 15 H, Urine Glucose (UA) 1000 H, Urine Ketones Negative, Urine Occult Blood 10 H, Urine Nitrite Negative, Urine Bilirubin Negative, Urine Urobilinogen Normal, Ur Leukocyte Esterase 500 H, Urine RBC 0 SEEN, Urine WBC 10-25 SEEN, Ur Squamous Epith Cells 0-5 SEEN, Urine Bacteria RARE, Urine Mucus 0 SEEN 10/15/23 23:10: POC Glucose 119 H 10/16/23 06:20: WBC 14.9 H, RBC 3.86 L, Hgb 12.0, Hct 35.9 L, MCV 93.0, MCH 31.1, MCHC 33.4, RDW Std Deviation 49.7 H, RDW Coeff of Jeff 14.6, Plt Count 139 L, MPV 10.0, Immature Gran % (Auto) 1.300 H, Neut % (Auto) 77.9 H, Lymph % (Auto) 7.6 L, [place] % (Auto) 6.7, Eos % (Auto) 6.0 H, Baso % (Auto) 0.5, AbsoluteNeuts (auto) 11.6 H, Absolute Lymphs (auto) 1.13, Nucleated RBC % 0 10/16/23 06:23: POC Glucose 119 H Rhythm Strip Rhythm Strip: Sinus Rhythm Rate: 80 Ectopy: None Imagaing Radiology Impression Gallbladder Ultrasound 10/15/23 17:08 IMPRESSION: Solitary gallstone with contracted gallbladder and thickening of the wall. Positive Canela sign. Acute cholecystitis cannot be excluded. If this represents a clinical concern, recommend follow-up with HIDA scan. Diffuse fatty liver, remainder of the right upper quadrant ultrasound unremarkable. Electronically Signed: Tracy Shearer MD at 19:54 EST , Abdomen CT 10/15/23 20:10 IMPRESSION: No acute abnormality. Electronically Signed: Jhonatan HurtadoDO erik at 23:05 EST , Charges/Coding Visit Charges Inpatient E&M: 51408 Init Hosp L2 10/16/23 1418 <Electronically signed by Caden Roy MD> Cosigner Signature (if applicable): CC: Dr. Enma Otoole MD; Dr. Laura Bowden DO; Dr. Caden Roy MD~ Signed [facility] Work Phone: 1(901) 711-617201-14-2024 Progress note Author [facility] October 16, 2023 10:35am Note Date/Time October 16, 2023 7 :37am [facility] Medical Records Department [address] [place] [address] Progress Note - Hospitalist 10/16/23 0736 MR#: [id number] Acct: [id number] Name: PENNY MCKEON Rep #:[id number] : 1945 78 From: Dennise Batres MD PCP: Dr. Laura Bowden DO Status:ADM I N Location: [place] [address] Reason for Visit Reason for Visit: Diagnoses Calculus of gallbladder with acute cholecystitis without obstruction (10/15/23) Subjective Subjective Patient is a 78-year-old lady admitted with abdominal pain gallbladder ultrasound obtained did show Solitary gallstone with contracted gallbladder and thickening of the wall. Positive Canela sign. Acute cholecystitis could not be excluded patient admittedto regular nursing floor with consultation placed to general surgery as well as GI Objective Data Objective Data Vital Signs: Vital Signs Temp Pulse Resp BP Pulse Ox O2 Del Method 98.5 F 80 16 131/63 H 96 Bi-pap 10/16/23 06:32 10/16/23 06:32 10/16/23 06:32 10/16/23 06:32 10/16/23 06:32 10/16/23 06:33 Oxygen Delivery Method Bi-pap Weight: 120.9 kg Body Mass Index (BMI) 45.5 Intake & Output: Intake and Output for Last 24 Hours 10/14/23 10/15/23 10/16/23 23:59 23:59 23:59 Intake Total 868.33 / 868.33 Balance 868.33 / 868.33 Lab / Micro Data 10/16/23 06:20 10/16/23 06:20 Labs: Laboratory Results - last 24 hr 10/15/23 17:20: WBC 20.1 H, RBC 4.09 L, Hgb 13.0, Hct 37.4, MCV 91.4, MCH 31.8, MCHC 34.8, RDW Std Deviation 48.5 H, RDW Coeff of Jeff 14.3, Plt Count 128 L, MPV9.9, Immature Gran % (Auto) 0.800, Neut % (Auto) 83.6 H, Lymph % (Auto) 5.3 L, [place] % (Auto) 6.0, Eos % (Auto) 3.9, Baso % (Auto) 0.4, Absolute Neuts (auto) 16.8 H, Absolute Lymphs (auto) 1.07, Nucleated RBC % 0, Sodium 129 L, Potassium 3.3 L, Chloride 97 L, Carbon Dioxide 20.0 L, Anion Gap 12, BUN 33 H, Creatinine 1.43 H, Estim Creat Clear Calc 45.05, Est GFR (MDRD) Af Amer 46 L, Est GFR (MDRD) Non-Af 38 L, BUN/Creatinine Ratio 23.1 H, Glucose 158 H, Calcium 9.3, Magnesium 1.4 L, Total Bilirubin 12.50 H, AST 209 H, ALT 257 H, Alkaline Phosphatase 306 H, Troponin I High Sens 21, Total Protein 6.9, Albumin 2.7 L, Globulin 4.2, Albumin/Globulin Ratio 0.6 L, Lipase 93 H 10/15/23 19:34: Urine Color Yellow, Urine Clarity Clear, Urine pH 6.5, Ur Specific [place] 1.005, Urine Protein 15 H, Urine Glucose (UA) 1000 H, Urine Ketones Negative, Urine Occult Blood 10 H, Urine Nitrite Negative, Urine Bilirubin Negative, Urine Urobilinogen Normal, Ur Leukocyte Esterase 500 H, Urine RBC 0 SEEN, Urine WBC 10-25 SEEN, Ur Squamous Epith Cells 0-5 SEEN, Urine Bacteria RARE, Urine Mucus 0 SEEN 10/15/23 23:10: POC Glucose 119 H 10/16/23 06:20: WBC 14.9 H, RBC 3.86 L, Hgb 12.0, Hct 35.9 L, MCV 93.0, MCH 31.1, MCHC 33.4, RDW Std Deviation 49.7 H, RDW Coeff of Jeff 14.6, Plt Count 139 L, MPV 10.0, Immature Gran % (Auto) 1.300 H, Neut % (Auto) 77.9 H, Lymph % (Auto) 7.6 L, [place] % (Auto) 6.7, Eos % (Auto) 6.0 H, Baso % (Auto) 0.5, Absolute Neuts (auto) 11.6 H, Absolute Lymphs (auto) 1.13, Nucleated RBC % 0 10/16/23 06:23: POC Glucose 119 H Radiography Diagnostic Testing: Radiology Impression Gallbladder Ultrasound 10/15/23 17:08 IMPRESSION: Solitary gallstone with contracted gallbladder and thickening of the wall. Positive Canela sign. Acute cholecystitis cannot be excluded. If this represents a clinical concern, recommend follow-up with HIDA scan. Diffuse fatty liver, remainder of the right upper quadrant ultrasound unremarkable. Electronically Signed: Tracy Shearer MD at 19:54 EST , Abdomen CT 10/15/23 20:10 IMPRESSION: No acute abnormality. Electronically Signed: Jhonatan Robledo DO at 23:05 EST , Rhythm Strip Rhythm Strip: Sinus Rhythm Rate: 80 Ectopy: None Physical Exam Narrative GENERAL: cooperative HEENT: Atraumatic; normocephalic EYES; Anicteric, Normal Conjunctiva NECK; supple, normal thyroid, RESPIRATORY: Diminished to auscultation CARDIOVASCULAR: Regular S1 S2, GI: Right upper quadrant abdominal tenderness : No Renal angle tenderness; EXTREMITIES: No edema, no clubbing, MUSCULOSKELETAL: no muscle wasting NEURO: Awake; no lateralizing signs. SKIN: No Rash PSYCH; Flat affect Assessment & Plan Assessment/Plan (1) Acute calculous cholecystitis: PLAN: Plan Patient is a 78-year-old lady admitted with abdominal pain gallbladder ultrasound obtained did show Solitary gallstone with contracted gallbladder and thickening of the wall. Positive Canela sign. Acute cholecystitis could not be excluded patient admitted to regular nursing floor with consultation placed to general surgery as well as GI 1. Right upper quadrant abdominal pain ?? Cholelithiasis with acute cholecystitis ? Patient admitted to regular nursing floor for symptom management as part of her evaluation consult was placed to general surgery as well as GI. Decision for patient to undergo HIDA scan deferred to general surgery. 2. Nonalcoholic fatty liver disease ? GI consulted 3. Diabetes mellitus type II -patient's oral hypoglycemics held. Placed on long acting insulin, Accu-Cheks a.c. and at bedtime and covered with sliding scale insulin 4. Dyslipidemia -Patient is on statin therapy as well as fenofibrate, continued at home dose 5. Class III obesity with BMI of 45.8 ? Complicating care weight loss advised 6. Hypothyroidism - Patient is on levothyroxine home dose continued 7. Hypertension - Blood pressure controlled, home medications continued with dose adjustment as needed 8. Overactive bladder ? Patient is on Myrbetriq as well as oxybutynin at home 9. Hypokalemia ? Corrected per protocol repeat labs ordered for monitoring next 10. Depression with anxiety ? Patient is on escitalopram did continue 11. Allergic rhinitis ? Patient is on cetirizine 12. DVT prophylaxis ? Bilateral SCDs and SC heparin Time spent in the patient's overall evaluation,decision-making process, review of diagnostic data, adjustment of management, discussion with other providers, nursing nursing and ancillary staff involved in patient's care documentation, 50minutes Charges/Coding Visit Charges Inpatient E&M: 93293 Subs Hosp L3 10/16/23 1035 <Electronically signed by Dennise Batres MD> Cosigner Signature (if applicable): CC: ~ Signed [facility] Work Phone: 1(628) 760-924401-14-2024 Discharge summary Author Timbo Snowden [facility] October 15, 2023 10:38pm Note Date/Time October 15, 2023 5 :13pm [facility] Medical Records Department [facility] [place] [address] Emergency Department Summary 10/15/23 MR#: [id number] Acct: [id number] Name: PENNY MCKEON Rep #:[id number] : 1945 78 From: Timbo Snowden MD PCP: Dr. Laura Bowden, DO Status:ADM I N Location: [place] [address] HPI HPI - GI History of Present Illness Chief Complaint: Fall Informant: patient and family Narrative Narrative: 5 days ago patient had an episode of lower midsternal chest discomfort with nausea that did not radiate anywhere or make her dyspneic that occurred an hour or so after eating homemade shrimp Jesus. She states the next day the pain was gone she felt she did not need to go to the ER because it did not radiate. Last night after eating a doughnut, some cookies, and a submarine sandwich, shehad another episode of this discomfort, and overnight she got out of bed use thebathroom but fell to the floor because her legs were feeling weak and she was unable to get up partially because her legs were stuck underneath the bed, she denies injuring herself but was not able to get up and come here until her daughter came to get her and help, upon which her daughter noticed that she was jaundiced which is new. No history of any abdominal surgeries. She is not having pain right now. No fevers that she knows of. Generalized weakness started overnight. [facility] Medical History Allergic rhinitis Anxiety and depression CKD (chronic kidney disease) Hyperlipidemia Hypertension Hypothyroidism Morbid obesity Type 2 diabetes mellitus Home Medications aspirin 81 mg tablet,delayed release (Adult Aspirin Regimen) 81 mg PO DAILY Blood thinner 10/15/23 [History Last Taken Unknown] atorvastatin 20 mg tablet 20 mg PO DAILY cholesterol 10/15/23 [History Last Taken Unknown] carvedilol 25 mg tablet 25 mg PO Q12H Blood pres 10/15/23 [History Last Taken Unknown] cetirizine 10 mg tablet 10 mg PO DAILY Allergies 10/15/23 [History Last Taken Unknown] cholestyramine-aspartame 4 gram oral powder for susp in a packet (CholestyramineLight) 1 ea PO DAILY cholesterol 10/15/23 [History Last Taken Unknown] empagliflozin 25 mg tablet (Jardiance) 25 mg PO DAILY Glucose control 10/15/23 [History Last Taken Unknown] ergocalciferol (vitamin D2) 1,250 mcg (50,000 unit) capsule 1,250 mcg PO DAILY Vit D 10/15/23 [History Last Taken Unknown] escitalopram oxalate 20 mg tablet 20 mg PO DAILY Anxiety 10/15/23 [History Last Taken Unknown] fenofibrate nanocrystallized 145 mg tablet 145 mg PO DAILY cholesterol 10/15/23 [History Last Taken Unknown] levothyroxine 50 mcg tablet 50 mcg PO DAILY thyroid 10/15/23 [History Last Taken Unknown] mirabegron 25 mg tablet,extended release 24 hr (Myrbetriq) 25 mg PO Q24H Gzhltlc77/13/24 [History Last Taken Unknown] montelukast 10 mg tablet 10 mg PO DAILY Wheezing 10/15/23 [History Last Taken Unknown] niacin 1,000 mg tablet,extended release 24 hr 1,000 mg PO DAILY cholesterol 10/15/23 [History Last Taken Unknown] oxybutynin chloride 10 mg tablet,extended release 24 hr 10 mg PO DAILY Bladder 10/15/23 [History Last Taken Unknown] sitagliptin phosphate 50 mg-metformin 1,000 mg tablet (Janumet) 1 tab PO DAILY Glucose 10/15/23 [History Last Taken Unknown] Allergy/AdvReac Type Severity Reaction Status Date / Time No Known Allergies Allergy Verified 10/15/23 17:26 Family History (Updated 10/15/23 @ 20:[address] Enma Otoole MD) Mother Cancer Diabetes Father Heart disease Surgical History S/P left knee arthroscopy Social History (Updated 10/15/23 @ 20:[address] Enma Otoole MD) household members: none Smoking Status: Former smoker how long ago did patient quit smoking: Smoked age 22-until 30 years old, 1 ppd until quit. alcohol intake: never substance use type: does not use ROS ROS ED Constitutional Constitutional ED: Reports weakness; Denies chills or fever(s) Eyes Eyes: Denies change in vision or diplopia ENT ENT ED: Denies rhinorrhea or sore throat Cardiovascular Cardiovascular: Reports chest pain; Denies palpitations Respiratory/Chest Respiratory/Chest: Denies cough or dyspnea Gastrointestinal Gastrointestinal: Reports diarrhea, nausea and vomiting; Denies abdominal pain, hematemesis, hematochezia or melena Genitourinary Genitourinary ED: Denies dysuria or hematuria Musculoskeletal Musculoskeletal: Denies back pain or neck pain Integumentary Denies abscess or rash Neurologic Neurologic: Denies headache(s), paresthesias or weakness Psychiatric Psychiatric: Denies anxiety or suicidal thoughts EXAM Physical Exam Const Vital Signs: 10/15/23 16:51 10/15/23 17:07 10/15/23 20:00 Temperature 98.1 F 97.8 F Temperature Source Temporal Oral Pulse Rate 82 64 Respiratory Rate 16 16 Respiratory Effort Normal Respiratory Depth Normal Respiratory Pattern Normal Blood Pressure 153/64 H 128/68 H Blood Pressure Mean 93 88 Pulse Ox 97 97 Oxygen Delivery Method Room Air Room Air Room Air Positive well nourished, well developed and obese General Appearance ED: well developed and NAD Nutritional Appearance: obese HEENT Reports moist mucous membranes normocephalic and atraumatic Eyes PERRL and EOMs intact bilaterally General Eye ED: Yes scleral icterus Neck full ROM and supple Resp normal respiratory effort and clear to auscultation bilaterally Cardio regular rate, regular rhythm and no murmurs GI non-distended GI Narrative: Tender right upper quadrant. Otherwise benign abdomen. No guarding or rebound. Positive Canela. Auscultation: normoactive bowel sounds Palpation: soft Back/Spine no CVA tenderness General Back: other FROM Extremity normal to inspection General Extremety ED: Negative for edema, pulses abnormal or tenderness General Extremity: Negative for edema or pulses abnormal Neuro oriented x3, CN's II-XII intact bilaterally and no sensory deficits noted Sensorium / Orientation: awake and alert Motor Exam: strength 5/5 throughout Skin no rashes or lesions noted and no wounds General Skin Exam: jaundice MDM MDM MDM Narrative Medical decision making narrative: Given the patient is jaundiced my suspicion is that she has been having biliary colic and has stones and potentially biliary obstruction. I think this is less likely to be cardiac under the circumstances but obtained an EKG and a troponin in addition to a biliary workup with an ultrasound. EKG and troponin unremarkable, liver enzymes elevated along with total bilirubin extremely elevated at 12.5, as well as a leukocytosis of 20.1. I reviewed the images of the ultrasound and report which I agree with, consistent with acute cholecystitis with a large gallstone stuck. No other abnormalities in the liveron the ultrasound. Lipase is just barely elevated at 93. No urinary symptoms but the urinalysis shows pyuria so this was sent for culture. She was empirically given a dose of Zosyn and I discussed with GI and surgery. Surgery requested a CT scan with oral contrast since we are avoiding the IV contrast given her renal function, this was done, still waiting on the read, hospitalist aware this is being performed, but will admit in the meantime. Patient stable for admission to regular floor bed at this time. History & Record Review Additional record(s) reviewed:: No prior records Lab Data Attestation: I reviewed the patient's lab results. Labs: Laboratory Results - last 24 hr 10/15/23 10/15/23 17:20 19:34 WBC 20.1 H RBC 4.09 L Hgb 13.0 Hct 37.4 MCV 91.4 MCH 31.8 MCHC 34.8 RDW Std Deviation 48.5 H RDW Coeff of Jeff 14.3 Plt Count 128 L MPV 9.9 Immature Gran % (Auto) 0.800 Neut % (Auto) 83.6 H Lymph % (Auto) 5.3 L [place] % (Auto) 6.0 Eos % (Auto) 3.9 Baso % (Auto) 0.4 Absolute Neuts (auto) 16.8 H Absolute Lymphs (auto) 1.07 Nucleated RBC % 0 Sodium 129 L Potassium 3.3 L Chloride 97 L Carbon Dioxide 20.0 L Anion Gap 12 BUN 33 H Creatinine 1.43 H Estim Creat Clear Calc 45.05 Est GFR (MDRD) Af Amer 46 L Est GFR (MDRD) Non-Af 38 L BUN/Creatinine Ratio 23.1 H Glucose 158 H Calcium 9.3 Magnesium 1.4 L Total Bilirubin 12.50 H AST 209 H ALT 257 H Alkaline Phosphatase 306 H Troponin I High Sens 21 Total Protein 6.9 Albumin 2.7 L Globulin 4.2 Albumin/Globulin Ratio 0.6 L Lipase 93 H Urine Color Yellow Urine Clarity Clear Urine pH 6.5 Ur Specific [place] 1.005 Urine Protein 15 H Urine Glucose (UA) 1000 H Urine Ketones Negative Urine Occult Blood 10 H Urine Nitrite Negative Urine Bilirubin Negative Urine Urobilinogen Normal Ur Leukocyte Esterase 500 H Urine RBC 0 SEEN Urine WBC 10-25 SEEN Ur Squamous Epith Cells 0-5 SEEN Urine Bacteria RARE Urine Mucus 0 SEEN Radiography Diagnostic Testing: Clinical Impression(s) from Imaging Studies Gallbladder Ultrasound 10/15/23 17:08 IMPRESSION: Solitary gallstone with contracted gallbladder and thickening of the wall. Positive Canela sign. Acute cholecystitis cannot be excluded. If this represents a clinical concern, recommend follow-up with HIDA scan. Diffuse fatty liver, remainder of the right upper quadrant ultrasound unremarkable. Electronically Signed: Tracy Shearer MD at 19:54 EST , Rhythm Strip Rhythm Strip: Sinus Rhythm Rate: 80 Ectopy: None EKG Initial EKG: Attestation: I personally reviewed and interpreted this EKG as follows: Interpretation: Sinus Rhythm and No Acute Injury Pattern Prior: No Prior Management Discussion w/another healthcare provider: Hospitalist and Die Equipment Operator (Friend (GI), Kirill (surg)) Discharge Plan Dx/Rx/DC Orders Clinical Impression: Elevated liver enzymes, Acute calculous cholecystitis, Acquired hyperbilirubinemia Disposition Disposition: Acute Care Hospital [facility] Discharge Date/Time: 10/15/23 21:21 What to do if you have Problems For any increased pain, shortness of breath, bleeding, nausea or vomiting, chestpain, or any unexpected problems, contact your Primary Care Provider. Call [facility] ([phone]) or report to the closest Emergency Room. Call 911 if necessary. 10/15/232237 <Electronically signed by Timbo Snowden MD> Cosigner Signature (if applicable): CC: Dr. Laura Bowden, DO ~ Signed [facility] Work Phone: [phone]) 679-714201-13-2024 History and physical note Author Enma Otoole [facility] October 15, 2023 8:39pm Note Date/Time October 15, 2023 8 :10pm [facility] Medical Records Department [address] [place] [address] H&P Exam - Hospitalist 10/15/232005 MR#: [id number] Acct: [id number] Name: PENNY MCKEON Rep #:[id number] : 1945 78 From: Enma Otoole MD PCP: Dr. Laura Bowden, DO Status:ADM I N Location: [place] [id number] HPI - General General Date of Admission: 10/15/23 Date of Service: 10/15/23 Chief Complaint: Abdominal pain, nausea. 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: Morbid obesity, HTN, HLD, Diabetes mellitus type II, Former tobacco use who presents to the [facility] ED on10/15/23 with history of episode of lower midsternal chest discomfort with nauseawith no radiation that occurred approximately 5 days prior following eating a heavy meal shrimp Jesus with resolution of discomfort the next day however again the evening prior to current presentation she was noted to have eaten a large sandwich as well as some cookies and donuts and had a similar episode of discomfort and eventually overnight while attempting to get up to use the restroom she felt incredibly weak and fatigued unfortunately falling with her leg stuck underneath the bed but could not get up until her daughter was able tohelp her and upon helping her she noted that her skin was yellowed prompting ED evaluation. Patient denies any current pain in her right upper quadrant or epigastric region at this time. She currently notes the discomfort to her rightupper quadrant and epigastric region is primary with palpation and rates it 5-6 out of 10 in severity or dull aching but with palpation sharp and can increase up to 8-9 out of 10 in severity. Workup in the ED included T98.1, heart rate 82, BP 153/64, respiratory rate 16, 97% on room air, CBC with WBC 20.1, hemoglobin 13, platelet 128 with left shift, CMP with sodium 129, potassium 3.3 noted to be slightly hemolyzed thus may be falsely increased, chloride 97, carbon oxide 20, BUN/creatinine 32/1.43, GFR 38, glucose 158, T. bili 12.50, AST/ALT 209/257, alk phos 306, troponin 21, lipase 93, gallbladder ultrasound with solitary gallstone with contracted gallbladder and thickening of the wall, positive Canela sign, acute cholecystitis cannot be excluded. In the ED patientministered maintenance IV fluid, Zosyn as well as Zofran 4 mg IV x 1. [facility] Medical History (Updated 10/15/23 @ 20:[address] Enma Otoole MD) Allergic rhinitis Anxiety and depression CKD (chronic kidney disease) Hyperlipidemia Hypertension Hypothyroidism Morbid obesity Type 2 diabetes mellitus Home Medications atorvastatin 20 mg tablet mg 10/15/23 [History Last Taken Unknown] carvedilol 25 mg tablet mg 10/15/23 [History Last Taken Unknown] cetirizine 10 mg tablet mg 10/15/23 [History Last Taken Unknown] cholestyramine-aspartame 4 gram oral powder for susp in a packet (CholestyramineLight) ea 10/15/23 [History Last Taken Unknown] empagliflozin 25 mg tablet (Jardiance) mg 10/15/23 [History Last Taken Unknown] ergocalciferol (vitamin D2) 1,250 mcg (50,000 unit) capsule 10/15/23 [History Last Taken Unknown] escitalopram oxalate 20 mg tablet mg 10/15/23 [History Last Taken Unknown] fenofibrate nanocrystallized 145 mg tablet mg PO 10/15/23 [History Last Taken Unknown] levothyroxine 50 mcg tablet mcg 10/15/23 [History Last Taken Unknown] mirabegron 25 mg tablet,extended release 24 hr (Myrbetriq) mg PO 10/15/23 [History Last Taken Unknown] montelukast 10 mg tablet mg 10/15/23 [History Last Taken Unknown] niacin 1,000 mg tablet,extended release 24 hr mg PO 10/15/23 [History Last Taken Unknown] oxybutynin chloride 10 mg tablet,extended release 24 hr mg PO 10/15/23 [History Last Taken Unknown] sitagliptin phosphate 50 mg-metformin 1,000 mg tablet (Janumet) tab 10/15/23 [History Last Taken Unknown] Allergy/AdvReac Type Severity Reaction Status Date / Time No Known Allergies Allergy Verified 10/15/23 17:26 Family History (Updated 10/15/23 @ 20:[address] Enma Otoole MD) Mother Cancer Diabetes Father Heart disease Surgical History (Updated 10/15/23 @ 20:[address] Enma Otoole MD) S/P left knee arthroscopy Social History (Updated 10/15/23 @ 20:[address] Enma Otoole MD) household members: none Smoking Status: Former smoker how long ago did patient quit smoking: Smoked age 22-until 30 years old, 1 ppd until quit. alcohol intake: never substance use type: does not use ROS ROS Narrative Admission Review of Systems: CONSTITUTIONAL: No weight loss, fever, chills, + weakness or fatigue. HEENT: + Scleral icterus. Eyes: No visual loss, blurred vision, double vision. Ears, Nose, Throat: No hearing loss, sneezing, congestion, runny nose or sore throat. SKIN: No rash or itching, lesions, wounds. + Jaundiced appearance. CARDIOVASCULAR: No chest pain, chest pressure or chest discomfort, palpitations,edema, orthopnea, syncopal events. RESPIRATORY: No shortness of breath, cough or sputum, wheezing, hemoptysis. GASTROINTESTINAL: + anorexia, nausea without vomiting, abdominal pain. No diarrhea, melena, BRBPR. GENITOURINARY: No dysuria, frequency, urgency or retention. NEUROLOGICAL: No headache, dizziness, syncope, paralysis, ataxia, numbness or tingling in the extremities, focal weakness, change in bowel or bladder control,seizure. MUSCULOSKELETAL: + muscle, back pain, joint pain or stiffness. HEMATOLOGIC: No anemia, bleeding or bruising. LYMPHATICS: No enlarged nodes. No history of splenectomy. PSYCHIATRIC: + History of anxiety and depression. ENDOCRINOLOGIC: No reports of sweating, cold or heat intolerance. No polyuria orpolydipsia. ALLERGIES: + History of allergic rhinitis. Vital Signs Vital Signs Vital Signs: 10/15/23 16:51 10/15/23 17:07 Temperature 98.1 F Temperature Source Temporal Pulse Rate 82 Respiratory Rate 16 Respiratory Effort Normal Respiratory Depth Normal Respiratory Pattern Normal Blood Pressure 153/64 H Blood Pressure Mean 93 Pulse Ox 97 Oxygen Delivery Method Room Air Room Air Weight Weight: 289 lb Body Mass Index (BMI) 49.6 Physical Exam Narrative Physical Examination: General: Awake, alert, oriented x 3 and cooperative, seated upright in the ED bed in no apparent distress, fatigued appearance, notes pain currently controlled, jaundiced. Skin: Jaundiced color with scleral icterus present, normal turgor, no cyanosis. HEENT: AT/NC, EOMI, PERRLA, dry MM, no carotid bruits, difficult to assess JVD given thickened neck. Lungs: CTA bilaterally, moderate effort, mild decrease BL bases, no rales, ronchi or wheezing. Heart: Regular rate and rhythm; no gallop, rub audible. Abdomen: Soft, morbidly obese, tenderness to palpation in the epigastric and right upper quadrant with rebound, mildly hyperactive BS, difficult to discern distention and HSM given pain with evaluation and habitus. Extremities: No cyanosis, clubbing, or edema. Neurological: Patient awake, alert, oriented as noted, cognitive function intact; pupils equally reactive to light and accommodation, cranial nerves II-XII grossly normal, moving all 4 extremities, no focal deficits, strength moderately to severely globally decreased secondary to acute presentation. Psychiatric: Affect appears fatigued, mildly uncomfortable, no acute evidence ofdepressive or anxiety feelings but does have underlying history. Results Lab / Micro Data 10/15/23 17:20 10/15/23 17:20 Labs: Laboratory Results - last 24 hr 10/15/23 17:20: WBC 20.1 H, RBC 4.09 L, Hgb 13.0, Hct 37.4, MCV 91.4, MCH 31.8, MCHC 34.8, RDW Std Deviation 48.5 H, RDW Coeff of Jeff 14.3, Plt Count 128 L, MPV9.9, Immature Gran % (Auto) 0.800, Neut % (Auto) 83.6 H, Lymph % (Auto) 5.3 L, [place] % (Auto) 6.0, Eos % (Auto) 3.9, Baso % (Auto) 0.4, Absolute Neuts (auto) 16.8 H, Absolute Lymphs (auto) 1.07, Nucleated RBC % 0, Sodium 129 L, Potassium 3.3 L, Chloride 97 L, Carbon Dioxide 20.0 L, Anion Gap 12, BUN 33 H, Creatinine 1.43 H, Estim Creat Clear Calc 45.05, Est GFR (MDRD) Af Amer 46 L, Est GFR (MDRD) Non-Af 38 L, BUN/Creatinine Ratio 23.1 H, Glucose 158 H, Calcium 9.3, Total Bilirubin 12.50 H, AST 209 H, ALT 257 H, Alkaline Phosphatase 306 H, Troponin I High Sens 21, Total Protein 6.9, Albumin 2.7 L, Globulin 4.2, Albumin/Globulin Ratio 0.6 L, Lipase 93 H 10/15/23 19:34: Urine Color Yellow, Urine Clarity Clear, Urine pH 6.5, Ur Specific [place] 1.005, Urine Protein 15 H, Urine Glucose (UA) 1000 H, Urine Ketones Negative, Urine Occult Blood 10 H, Urine Nitrite Negative, Urine Bilirubin Negative, Urine Urobilinogen Normal, Ur Leukocyte Esterase 500 H, Urine RBC 0 SEEN, Urine WBC 10-25 SEEN, Ur Squamous Epith Cells 0-5 SEEN, Urine Bacteria RARE, Urine Mucus 0 SEEN Rhythm Strip Rhythm Strip: Sinus Rhythm Rate: 80 Ectopy: None Imagaing Radiology Impression Gallbladder Ultrasound 10/15/23 17:08 IMPRESSION: Solitary gallstone with contracted gallbladder and thickening of the wall. Positive Canela sign. Acute cholecystitis cannot be excluded. If this represents a clinical concern, recommend follow-up with HIDA scan. Diffuse fatty liver, remainder of the right upper quadrant ultrasound unremarkable. Electronically Signed: Tracy Shearer MD at 19:54 EST , Assessment & Plan Assessment/Plan (1) Acute calculous cholecystitis: PLAN: Plan The 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 78 y/o F w/ PMHx: Morbid obesity, HTN, HLD, Diabetes mellitus type II, Former tobacco use who presents to [facility] ED on 10/15/23 with history of episode of lower midsternal chest discomfort with nausea with no radiation that occurred approximately 5 days prior following eating a heavy meal shrimp Jesus with resolution of discomfort the next day however again the evening prior to current presentation she was noted to have eaten a large sandwich as well as some cookies and donuts and had a similar episode of discomfort and eventually overnight while attempting to get up to use the restroom she felt incredibly weak and fatigued unfortunately falling with her leg stuck underneaththe bed but could not get up until her daughter was able to help her and upon helping her she noted that her skin was yellowed prompting ED evaluation. #1. Acute cholecystitis with ? choledocholithiasis with notable jaundice with hyperbilirubinemia and transaminitis, abdominal pain: Will admit to MS, maintainon IVFs, NPO, PPI, IV/po pain control, trend CMP, maintain on IV Zosyn therapy, continue judicious IV fluids, continue General surgery and gastroenterology consultations. #2. Hyponatremia, acute, suspected hypovolemic, secondary to acute presentationas noted #1: Admission Na 129, Chl 97, will continue to judiciously hydrate and plan repeat CMP in AM. #3. Hypokalemia: Admission K+ 3.3, magnesium level requested, supplementation given, repeat level in AM. #4. CKD stage III unclear subtype versus Acute Renal Insufficiency versus DAYLIN, unable to determine as no prior renal function comparison: Admission BUN/creatinine 33/1.43, do suspect given underlying history of likely chronic kidney disease stage III however unable to absolutely say this and cannot say that patient has renal insufficiency or DAYLIN thus we will continue to hydrate andrepeat CMP in AM which will help further elucidate patient baseline renal function. #5. Diabetes mellitus type II: Hold oral home regimen, NPO status given presentation as noted, q 6 hour accu checks w/ ISS. #6. Hypertension: Continue home regimen including Coreg 25 mg p.o. twice daily,Lasix 20 mg p.o. daily, PRN hydralazine. #7. Hyperlipidemia: Will hold statin and fenofibrate therapy given significant transaminitis and hyperbilirubinemia. #8. Allergic rhinitis: We will continue patient home cetirizine 10 mg p.o. every morning and montelukast 10 mg daily #9. Anxiety and depression: Given significant hyperbilirubinemia and transaminitis. Patient home escitalopram regimen. #10. Hypothyroidism: We will continue patient home levothyroxine 50 mcg daily #11. Morbid Obesity: Weight loss and lifestyle changes encouraged. #12. DVT prophylaxis: SCDs, hold chemoprophylaxis for operative intervention needs. #13. CODE status: Patient ELIJAH is her daughter Analy who is present and living will is currently in place. Discussed CODE status at length including difference between FULL code, DNR-CCA and DNR-CC status. Following discussions about the differences in these status, requested Full Code status. [facility] Face to Face Time: 16 minutes. Charges/Coding Visit Charges Inpatient E&M: 66728 Init Hosp L3 Procedures Hospitalists Procedures: 34088 Advncd Care Plan 30 Min 10/15/232038 <Electronically signed by Enma Otoole MD> Cosigner Signature (if applicable): CC: Dr. Enma Otoole MD; Dr. Laura Bowden DO~ Signed [facility] Work Phone: Consult note Author Rubi Hardy [facility] October 19, 2023 2:33pm Note Date/Time October 19, 2023 2 :33pm [facility] Medical Records Department [address] [place] [address] Counseling Note - Pharmacy 10/19/23 1432 MR#: [id number] Acct: [id number] Name: PENNY MCKEON Rep #:[id number] : 1945 78 From: Rubi Hardy PCP: Dr. Laura Bowden, DO Status:ADM I N Y Location: [place] [address] Pharmacy [facility] has performed discharge medication reconciliation and counseling for this patient. 1. AUGMENTIN 875/125MG 1T PO BID X 5 DAYS 2. NORCO 5/325MG 1T PO Q6H PRN PAIN The patient's discharge medication list was reviewed for discrepancies and discrepancies were resolved. The patient was counseled on the following discharge medications and changes in medications for homegoing were reviewed. The Reason for Use, instructions for use, and potential side effects were reviewed for all new medications. The patient's questions regarding all of their medications were answered. The patient was able to verbally demonstrate an understanding of their dischargemedications. Medications at Discharge Home Medications aspirin 81 mg tablet,delayed release (Adult Aspirin Regimen) 81 mg PO DAILY Blood thinner 10/15/23 atorvastatin 20 mg tablet 20 mg PO DAILY cholesterol 10/15/23 carvedilol 25 mg tablet 25 mg PO Q12H Blood pres 10/15/23 cetirizine 10 mg tablet 10 mg PO DAILY Allergies 10/15/23 cholestyramine-aspartame 4 gram oral powder for susp in a packet (CholestyramineLight) 1 ea PO DAILY cholesterol 10/15/23 empagliflozin 25 mg tablet (Jardiance) 25 mg PO DAILY Glucose control 10/15/23 ergocalciferol (vitamin D2) 1,250 mcg (50,000 unit) capsule 1,250 mcg PO DAILY Vit D 10/15/23 escitalopram oxalate 20 mg tablet 20 mg PO DAILY Anxiety 10/15/23 fenofibrate nanocrystallized 145 mg tablet 145 mg PO DAILY cholesterol 10/15/23 levothyroxine 50 mcg tablet 50 mcg PO DAILY thyroid 10/15/23 mirabegron 25 mg tablet,extended release 24 hr (Myrbetriq) 25 mg PO Q24H [place]22/13/24 montelukast 10 mg tablet 10 mg PO DAILY Wheezing 10/15/23 niacin 1,000 mg tablet,extended release 24 hr 1,000 mg PO DAILY cholesterol 10/15/23 oxybutynin chloride 10 mg tablet,extended release 24 hr 10 mg PO DAILY Bladder 10/15/23 sitagliptin phosphate 50 mg-metformin 1,000 mg tablet (Janumet) 1 tab PO DAILY Glucose 10/15/23 amoxicillin 875 mg-potassium clavulanate 125 mg tablet 1 tab PO Q12H 5 days #10 tabs 10/19/23 hydrocodone-acetaminophen 5-325mg 5mg-325mg 1 tab PO Q6H PRN pain 3 days #10 tabs 10/19/23 10/19/23 1433 <Electronically signed by Rubi Hardy> Date _ Rubi Hardy Cosigner Signature (if applicable): Date CC: ~ Signed [facility] Work Phone: Consult note Author Tirso Vazquez [facility] Note Date/Time April 17, 2025 6:45 pm [facility] Medical Records Department [address] [place] [address] Consultation - Orthopedics 04/17/25 1836 MR#: [id number] Acct: [id number] Name: PENNY MCKEON Rep #:[id number] : 1945 79 From: Tirso aldrich DO PCP: Dr. Laura Bowden, DO Status:REG S DC Location: [facility] [place] [place] HPI Consult Data Date of Consult: 04/17/25 HPI Narrative Reason for Consultation: Concern for left septic elbow HPI Narrative: PENNY MCKEON, is a 79 F who presents to [facility] emergency department with atraumatic left elbow pain arising approximately 36 hours ago. She denies any injury or event. Denies any problems with her left elbow previously. Patient is diabetic, on immunosuppressants for psoriasis and morbidly obese. Pain was unrelenting which prompted the emergency department visit. Initially at time my examination she denied any fevers but later did report some fevers throughout the further workup process. She denies any nauseaor vomiting, chest pain or shortness of breath. Denies any flulike symptoms, dysuria. She reports some mild pain in her left wrist as well and a new rash onthe dorsal aspect of her left wrist. Denies history of gout or pseudogout. [facility] Medical History Hypothyroidism Anxiety and depression Allergic rhinitis CKD (chronic kidney disease) Morbid obesity Hyperlipidemia Hypertension Type 2 diabetes mellitus Home Medications ?Medication ?Instructions ?Recorded ?Last Taken ?Type aspirin 81 mg tablet,delayed 81 mg PO DAILY Blood thin ner 10/15/23 Unknown History release (Adult Aspirin Regimen) atorvastatin 20 mg tablet 20 mg PO DAILY cholesterol 0 10/15/23 Unknown History carvedilol 25 mg tablet 25 mg PO Q12H Blood pres Unknown History cetirizine 10 mg tablet 10 mg PO DAILY Allergies Unknown History cholestyramine-aspartame 4 gram 1 ea PO DAILY choleste rol 10/15/23 Unknown History oral powder for susp in a packet (Cholestyramine Light) empagliflozin 25 mg tablet 25 mg PO DAILY Glucose cont rol 10/15/23 Unknown History (Jardiance) ergocalciferol (vitamin D2) 1,250 1,250 mcg PO DAILY V it D 10/15/23 Unknown History mcg (50,000 unit) capsule escitalopram oxalate 20 mg tablet 20 mg PO DAILY Anxie ty 10/15/23 Unknown History fenofibrate nanocrystallized 145 145 mg PO DAILY sima sterol 10/15/23 Unknown History mg tablet levothyroxine 50 mcg tablet 50 mcg PO DAILY thyroid Unknown History mirabegron 25 mg tablet,extended 25 mg PO Q24H Bladder 10/15/23 Unknown History release 24 hr (Myrbetriq) montelukast 10 mg tablet 10 mg PO DAILY Wheezing 10/03 12/24 Unknown History niacin 1,000 mg tablet,extended 1,000 mg PO DAILY chol esterol 10/15/23 Unknown History release 24 hr oxybutynin chloride 10 mg 10 mg PO DAILY Bladder 10/15 Unknown History tablet,extended release 24 hr sitagliptin phosphate 50 1 tab PO DAILY Glucose 10/15 Unknown History mg-metformin 1,000 mg tablet (Octume) amoxicillin 875 mg-potassium 1 tab PO Q12H 5 days #10 tabs 10/19/23 Unknown Rx clavulanate 125 mg tablet hydrocodone-acetaminophen 5-325mg 1 tab PO Q6H PRN maida n 3 days #10 10/19/23 Unknown Rx 5mg-325mg tabs hydrocodone-acetaminophen 5-325mg 1 tab PO Q6H PRN PRN Pain 3 days 01/12/24 Unknown Rx 5mg-325mg #10 TABLETS Allergy/AdvReac Type Severity Reaction Status Date / Time No Known Allergies Allergy Verified 01/12/24 19:36 Family History Mother Cancer Diabetes Father Heart disease Surgical History S/P laparoscopic cholecystectomy S/P left knee arthroscopy Social History household members: none Smoking Status: Former smoker how long ago did patient quit smoking: Smoked age 22-until 30 years old, 1 ppd until quit. alcohol intake: never substance use type: does not use ROS ROS Narrative 12 point review of systems obtained, negative as otherwise known HPI. Vital Signs Vital Signs Vital Signs: 04/17/25 14:18 04/17/25 16:18 04/17/25 17:58 Temperature 98 F 99.8 F H Temperature Source Oral Pulse Rate 98 103 H 106 H Respiratory Rate 18 20 H 22 H Blood Pressure 162/103 H 191/81 H 151/82 H Blood Pressure Mean 122 117 105 Blood Pressure Source Blood Pressure Location Pulse Ox 97 94 Oxygen Delivery Method Room Air 04/17/25 18:00 04/17/25 18:03 04/17/25 18:20 Temperature 99.8 F H 99.2 F H 99.2 F H Temperature Source Oral Oral Pulse Rate 106 H 106 H 106 H Respiratory Rate 22 H 19 H 19 H Blood Pressure 152/82 H 153/90 H 153/90 H Blood Pressure Mean 105 111 Blood Pressure Source Monitor Blood Pressure Location Right Arm Pulse Ox 93 93 93 Oxygen Delivery Method Nasal Cannula Nasal Cannula Room Air Weight Weight: 294 lb 15.656 oz Body Mass Index (BMI) 50.6 Physical Exam Narrative General -A&Ox3, NAD, appears stated age. Tachycardic Respiratory -normal work of breathing, no intercostal retractions. CV -pulses regular, brisk capillary refill ?4 limbs. Abdomen-soft, nontender, nondistended. No guarding, rigidity, rebound tenderness. Musculoskeletal/neurologic -no erythema, nontender right upper extremity, bilateral lower extremities. Left upper extremity-Short range of motion pain present left elbow. Body habitus limits exam. No erythema of the left elbow. There is what appears to be either a early cellulitic versus lymphangitic rash along the dorsal hand into the left wrist. She tolerates short arc range of motion well in the left wrist but does have radiocarpal joint tenderness. No obvious palpable effusion. No open wounds identified. Sensation intact throughout. Cardinal motions left hand are intact. Brisk capillary fill in thefingertips. Radial pulse 2+. Lab / Micro Data 04/17/25 14:50 04/17/25 14:50 Labs: Laboratory Results - last 24 hr 04/17/25 14:50: WBC 16.8 H, RBC 4.15 L, Hgb 14.0, Hct 38.9, MCV 93.7, MCH 33.7 H, MCHC 36.0, RDW Std Deviation 43.8, RDW Coeff of Jeff 12.8, Plt Count 165, MPV 12.8 H, Immature Gran % (Auto) 0.500, Neut % (Auto) 66.7, Lymph % (Auto) 6.2 L, [place] % (Auto) 8.0, Eos % (Auto) 17.9 H, Baso % (Auto) 0.7, Absolute Neuts (auto)11.2 H, Absolute Lymphs (auto) 1.04, Nucleated RBC % 0, Differential Comment SCANNED, ESR 51 H, Sodium 133, Potassium 3.9, Chloride 95 L, Carbon Dioxide 19.1L, Anion Gap 19 H, BUN 11, Creatinine 0.98, Est GFR (MDRD) Non-Af 59 L, BUN/Creatinine Ratio 10.9, Glucose 225 H, Uric Acid 7.8 H, Calcium 9.5, C-React Prot Ext Range 119.00 H 04/17/25 16:48: Fluid Source Cancelled, Fluid Color Cancelled, Fluid Appearance Cancelled, Fluid WBC Cancelled, Fluid RBC Cancelled, Fluid Tot Cell Count Cancelled, Fld Polynuclear WBCs # Cancelled, Fld Polynuclear WBCs % Cancelled, Fluid Mononuclear WBCs Cancelled, Fld Mononuclear WBCs % Cancelled, Fluid Neutrophils Cancelled, Fluid Lymphocytes Cancelled, Fluid Monocytes Cancelled, Fluid Plasma Cells Cancelled, Fluid Macrophages Cancelled, Fld Mesothelial CellsCancelled, Fluid Other Cells Cancelled, Fl Pathologist Comment Cancelled, Fluid Comment 2 Cancelled Imaging Radiology Impression Elbow X-Ray 04/17/25 14:33 IMPRESSION: No fracture or dislocation. Degenerative changes at the elbow joint. Reading Location: [facility] Assessment & Plan Assessment/Plan (1) Septic arthritis of elbow, left: PLAN: Patient seen and examined. X-rays and lab work reviewed. Dr. [place] had previously attempted a left elbow arthrocentesis but was unsuccessful likely given patient's body habitus. I recommended a repeat arthrocentesis of the leftelbow. She was amenable and verbal consent was obtained. I also recommended a left wrist arthrocentesis given the developing rash and joint pain in the setting of suspected left septic elbow. She was also amenableto left wrist arthrocentesis. Informed consent was obtained. Procedure: Left elbow arthrocentesis Verbal informed consent obtained. Soft spot between the radial head, lateral epicondyle and olecranon was palpated. Skin was prepped with chlorhexidine. 22- gauge needle was then inserted into the left elbow joint. 2 cc of turbid fluid was aspirated. Needle was withdrawn and Band-Aid applied. Patient tolerated the procedure well without apparent complication. Procedure: Left wrist arthrocentesis Verbal consent obtained. Skin was prepped with chlorhexidine. Just distal to Jorge Luis's tubercle, a 22-gauge needle was inserted in the dorsal wrist skin piercing the capsule. Dry aspirate. Needle is withdrawn and Band-Aid applied. Patient tolerated the procedure well without apparent complication. Fluid from the left elbow was sent for cell count and culture. No crystals weresent due to limited yield. I discussed with the lab and at 181 at the white count was too high to be measured and needed diluted. Patient's rash appears coral worsening and I made the decision to proceed with left elbow I&D with possible left wrist I&D. I will plan to perform a repeat arthrocentesis in the OR and low threshold to perform I&D of the left wrist if this was also concerning for infection. I reviewed the risks, benefits, alternatives to the procedure. Risks include but are not limited to bleeding, persistent infection,neurovascular injury, instability, stiffness, need for additional surgery, injury to cartilage, risk of anesthesia, loss of life or limb, DVT or PE. Patient expressed understanding of these risks agreed to proceed with surgery. We will plan to proceed with surgery emergently tonight given the patient's clinical status and emergent nature of septic arthritis. Patient has been n.p.o. since midnight. Blood cultures ordered. Cultures pending of left elbow arthrocentesis. Broad-spectrum antibiotics planned. 04/17/25 1845 <Electronically signed by Tirso Vazquez DO> Cosigner Signature (if applicable): CC: Dr. Laura Bowden DO~ Signed [facility] Work Phone: Discharge summary Author Tirso Friend [facility] October 19, 2023 2:50pm Note Date/Time October 19, 2023 2 :50pm [facility] Medical Records Department [address] [place] [address] Discharge Summary 10/19/23 1445 MR#: [id number] Acct: [id number] Name: PENNY MCKEON Rep #:[id number] : 1945 78 From: Tirso kellogg MD PCP: Dr. Laura Bowden, Status:ADM I N [id number] Prov[facility] Date of Admission: 10/15/23 Primary Care Physician: Dr. Laura Bowden DO Consultations 10/15/23 21:49 Consult: Gastroenterology Routine Consulting Provider: [facility] Reason for Consult: cholecystitis/?choledocho w/ elevated bili/LFTs EMERGENT Consult: No Notified: Yes Date Notified: 10/15/23 Time Notified: 20:13 Method of Notification: Text Consult: General Surgery Routine Consulting Provider: Caden Roy Reason for Consult: Cholecystitis EMERGENT Consult: No Notified: Yes Date Notified: 10/15/23 Time Notified: 20:13 Method of Notification: ED Physician Initiated Reason For Visit: ACUTE CHOLECYSTITIS/CHOLEDOCHOLITHASIS W HYPERBIL Diagnosis Discharge Diagnosis (1) Acute calculous cholecystitis: Status: Acute Code(s): K80.00 - Calculus of gallbladder with acute cholecystitis without obstruction Medications at Discharge Home Medications aspirin 81 mg tablet,delayed release (Adult Aspirin Regimen) 81 mg PO DAILY Blood thinner 10/15/23 atorvastatin 20 mg tablet 20 mg PO DAILY cholesterol 10/15/23 carvedilol 25 mg tablet 25 mg PO Q12H Blood pres 10/15/23 cetirizine 10 mg tablet 10 mg PO DAILY Allergies 10/15/23 cholestyramine-aspartame 4 gram oral powder for susp in a packet (CholestyramineLight) 1 ea PO DAILY cholesterol 10/15/23 empagliflozin 25 mg tablet (Jardiance) 25 mg PO DAILY Glucose control 10/15/23 ergocalciferol (vitamin D2) 1,250 mcg (50,000 unit) capsule 1,250 mcg PO DAILY Vit D 10/15/23 escitalopram oxalate 20 mg tablet 20 mg PO DAILY Anxiety 10/15/23 fenofibrate nanocrystallized 145 mg tablet 145 mg PO DAILY cholesterol 10/15/23 levothyroxine 50 mcg tablet 50 mcg PO DAILY thyroid 10/15/23 mirabegron 25 mg tablet,extended release 24 hr (Myrbetriq) 25 mg PO Q24H Oyldjyo18/13/24 montelukast 10 mg tablet 10 mg PO DAILY Wheezing 10/15/23 niacin 1,000 mg tablet,extended release 24 hr 1,000 mg PO DAILY cholesterol 10/15/23 oxybutynin chloride 10 mg tablet,extended release 24 hr 10 mg PO DAILY Bladder 10/15/23 sitagliptin phosphate 50 mg-metformin 1,000 mg tablet (Janumet) 1 tab PO DAILY Glucose 10/15/23 amoxicillin 875 mg-potassium clavulanate 125 mg tablet 1 tab PO Q12H 5 days #10 tabs 10/19/23 hydrocodone-acetaminophen 5-325mg 5mg-325mg 1 tab PO Q6H PRN pain 3 days #10 tabs 10/19/23 Hospital Course Operations cholecystecomy Procedures None Summary of Care Provided Minutes Spent on Discharge: 38 Hospital Course: Per HPI: The 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 78 y/o F retired from [employer] w/ PMHx: Morbid obesity, HTN, HLD, Diabetes mellitus type II, [facility] with history of episode of lower midsternal chest discomfort with nausea with no radiation that occurred approximately 5 days prior following eating a heavy meal shrimp Jesus with resolution of discomfortthe next day however again the evening prior to current presentation she was noted to have eaten a large sandwich as well as some cookies and donuts and had a similar episode of discomfort and eventually overnight while attempting to getup to use the restroom she felt incredibly weak and fatigued unfortunately falling with her leg stuck underneath the bed but could not get up until her daughter was able to help her and upon helping her she noted that her skin was yellowed prompting ED evaluation. Patient denies any current pain in her right upper quadrant or epigastric region at this time. She currently notes the discomfort to her right upper quadrant and epigastric region is primary with palpation and rates it 5-6 out of 10 in severity or dull aching but with palpation sharp and can increase up to 8-9 out of 10 in severity. Workup in theED included T98.1, heart rate 82, BP 153/64, respiratory rate 16, 97% on room air, CBC with WBC 20.1, hemoglobin 13, platelet 128 with left shift, CMP with sodium 129, potassium 3.3 noted to be slightly hemolyzed thus may be falsely increased, chloride 97, carbon oxide 20, BUN/creatinine 32/1.43, GFR 38, [id number], T. bili 12.50, AST/ALT 209/257, alk phos 306, troponin 21, lipase 93, gallbladder ultrasound with solitary gallstone with contracted gallbladder and thickening of the wall, positive Canela sign, acute cholecystitis cannot be excluded. In the ED patient ministered maintenance IV fluid, Zosyn as well as Zofran 4 mg IV x 1. Hospital Course: 1. Right upper quadrant abdominal pain consistent with cholecystitis/hyperbilirubinemia/BAY?78-year-old female presents to the hospital with right upper quadrant abdominal pain after eating a high-fat meal. She did have an MRCP that demonstrated findings consistent with cholecystitis. She did not have a common bile duct stone to indicate as to why her bilirubin was still elevated. Gastroenterology was consulted and is proceeding with a workup for autoimmune causes however she proceeded with a cholecystectomy on 10/18/2023 and today she feels much better is tolerating a diet without any significant discomfort. She does have a ABBIE drain in place that will remain until she follows up in the office with general surgery. She was evaluated bothby myself and general surgery today and we both agree that she is stable for discharge. I discussed with her the plan for discharge today she expressed understanding of the risk benefits of going home and would like to go home today. Will recommend Augmentin twice daily for 5 more days. She will also be given a prescription for [place] to help control her pain that was discussed not drive while taking narcotics. Bilirubin is slowly improving down to 4.9 I do recommend outpatient monitoring for this as well as outpatient follow-up for hernonalcoholic fatty liver disease. 2. Type 2 diabetes, hyperlipidemia, morbid obesity, hypothyroidism, hypertension, depression, anxiety are all chronic medical conditions which complicate her care. Her home medications were continued where appropriate Physical Exam Narrative General: Alert, Oriented x3, Cooperative, No apparent distress HEENT: Atraumatic, PERRLA, EOMI, Normocephalic, scleral icterus Oral: Moist Mucosa Neck: Supple, No JVD Lungs: Diminished, Normal air movement, No rhonchi, No wheeze, No rales Cardiovascular: Regular rate, Regular Rhythm, Normal S1, Normal S2, No murmurs Abdomen: Soft, tender around incision sites, Non-Distended, No Hepato- splenomegaly, ABBIE with serosanguineous fluid Extremities: No edema, Capillary Refill Less than 3 Seconds Skin: No rashes, No breakdown, jaundice, dressings intact Musculoskeletal: No Tenderness to Palpation of Joints or Extremities Neurological: No focal deficit, Motor Exam 5/5 strength throughout, Sensory examintact to light touch and pain Psych/Mental Status: Normal Affect, Appropriate Weight / BMI Weight Weight: 267 lb 10.259 oz Body Mass Index (BMI) 45.9 ABG / Lab / Microbiology Data 10/19/23 07:30 10/19/23 09:45 Laboratory: Laboratory Results - last 24 hr 10/18/23 06:00: Sfaxo-0-Ndaderlegcv 206 H, JANETTE-1 Antibody <0.2, SS-A/Ro IgG Antibody < 0.2, SS-B/La IgG Antibody < 0.2, Sm ([place]) Antibody <0.2, [employer] Antibody <0.2, Scl-70 Scleroderma Ab <0.2, Double Strand DNA Ab <1, Centromere BAntibody <0.2, Anti-Mitochondrial Ab <20.0 10/18/23 17:15: POC Glucose 272 H 10/18/23 20:48: POC Glucose 288 H 10/19/23 06:47: POC Glucose 179 H 10/19/23 07:30: WBC 15.1 H, RBC 3.52 L, Hgb 11.1 L, Hct 33.3 L, MCV 94.6, MCH 31.5, MCHC 33.3, RDW Std Deviation 54.3 H, RDW Coeff of Jeff 15.9 H, Plt Count 191, MPV 11.2, Immature Gran % (Auto) 1.300 H, Neut % (Auto) 85.5 H, Lymph % (Auto) 7.8 L, [place] % (Auto) 5.2, Eos % (Auto) 0.0, Baso % (Auto) 0.2, Absolute Neuts (auto) 12.9 H, Absolute Lymphs (auto) 1.17, Nucleated RBC % 0, Sodium Cancelled, Potassium Cancelled, Chloride Cancelled, Carbon Dioxide Cancelled, Anion Gap Cancelled, BUN Cancelled, Creatinine Cancelled, Estim Creat Clear CalcCancelled, Est GFR (MDRD) Af Amer Cancelled, Est GFR (MDRD) Non-Af Cancelled, BUN/Creatinine Ratio Cancelled, Glucose Cancelled, Calcium Cancelled, Total Bilirubin Cancelled, AST Cancelled, ALT Cancelled, Alkaline Phosphatase Cancelled, Total Protein Cancelled, Albumin Cancelled, Globulin Cancelled, Albumin/Globulin Ratio Cancelled 10/19/23 09:45: Sodium 132 L, Potassium 3.9, Chloride 108 H, Carbon Dioxide 17.0L, Anion Gap 7, BUN 13, Creatinine 1.07 H, Estim Creat Clear Calc 57.46, Est GFR(MDRD) Af Amer 64, Est GFR (MDRD) Non-Af 53 L, BUN/Creatinine Ratio 12.1, Glucose 178 H, Calcium 9.3, Total Bilirubin 4.90 H, AST 51 H, ALT 192 H, Alkaline Phosphatase 351 H, Total Protein 6.5, Albumin 2.3 L, Globulin 4.2, Albumin/Globulin Ratio 0.5 L 10/19/23 11:21: POC Glucose 262 H Microbiology: Microbiology 10/15/23 19:34 Urine, Random Urine Culture - Final Klebsiella aerogenes D/C Instructions Discharge Diet: Low fat / Low cholesterol and Carb Control Diet May shower in (days): 1 Call your doctor if your incision/area has: Continuous Slow Oozing, Sudden Increased Bleeding, Increased Redness and Foul Smelling Discharge Call your doctor if you observe: Fever of 101 or Higher, Shortness of breath, Dizziness, Fainting spells, Swelling in the ankles, Chest pain and Increased palpitations (irregular heartbeat) Cleanse incision/area with: Soap & Water Drain: Suction Meaningful Use Info Meaningful Use Diagnoses (Choose all that apply): None applicable Discharge Plan Admission Admit Date/Time: 10/15/23 20:11 Attending Provider: Tirso Friend Primary Care Provider: Laura Bowden Consulting Providers: Caden Roy; Enma Otoole; Dennise Batres Instructions Additional Instructions / Restrictions: Cholecystectomy Diet ? Start light with soups and soft bland foods. You may advance diet as tolerated. Activity ? You may drive in 3-5 days but not while taking narcotic pain medication. ? I encourage walking. You may go up steps, one at a time. ? Do not swim or use hot tubs for 2 weeks. ? For comfort, you may use warm compresses or ice as needed for 15-20 minutes chuy time. Lifting ? You may lift up to 15 pounds for the 3 weeks. Dressings/Incision ? You may shower OVER your plastic dressings in 48 hours from your surgery ? Do NOT tub bathe for 1 week ? Leave plastic dressings on for 2 days. ? When plastic dressings are removed, you will find steri strips. It is okay to continue showering with them in place, pat them dry. ? You may remove steri-strips after 1 week. We recommend getting them soaking wet for easier removal. Drain Care You are going home with a drain. You are responsible to record the drainage character and amount each time you empty the drain. Keep drain site covered withgauze and tape. Change the dressing daily. Medications ? Anesthesia used during surgery and pain medications may cause constipation. I recommend initiating on the day of surgery a fiber supplement like, Metamucil, Citrucel, FiberCon, Benefiber, or a generic form of these medications. 1 heapingtablespoon in water daily. You may continue to utilize any bowel regimen or orallaxatives that you routinely take. ? As long as you are not intolerant to Tylenol, acetaminophen, ibuprofen, Motrin, Advil, Aleve, or similar medications, I would recommend transitioning tothese [id number] medicines as soon as possible instead of continued use ofnarcotic pain medication. Follow up ? You should call [facility] soon after surgery, at [phone] option 1 to make a follow up appointment for 7 days after your surgery. Discharge Orders/Prescriptions Prescriptions: New amoxicillin-pot clavulanate 875-125 mg tablet 1 tab PO Q12H 5 Days Qty: 10 0RF hydrocodone-acetaminophen 5-325 mg tablet 1 tab PO Q6H PRN (Reason: pain) 3 Days Qty: 10 0RF Continued carvedilol 25 mg tablet 25 mg PO Q12H atorvastatin 20 mg tablet 20 mg PO DAILY niacin 1,000 mg tablet extended release 24 hr 1,000 mg PO DAILY cetirizine 10 mg tablet 10 mg PO DAILY Patient Comments: TAKE ONE TABLET BY MOUTH EVERY DAY IN THE MORNING oxybutynin chloride 10 mg tablet extended release 24hr 10 mg PO DAILY levothyroxine 50 mcg tablet 50 mcg PO DAILY montelukast 10 mg tablet 10 mg PO DAILY ergocalciferol (vitamin D2) 1,250 mcg (50,000 unit) capsule 1,250 mcg PO DAILY Patient Comments: TAKE 1 CAPSULE (00670 UNITS) BY MOUTH ONCE A WEEK escitalopram oxalate 20 mg tablet 20 mg PO DAILY cholestyramine-aspartame [Cholestyramine Light] 4 gram powder in packet 1 ea PO DAILY Patient Comments: DISSOLVE 1 PACKET IN 2 TO 6 OUNCES OF WATER OR NONCARBONATED BEVERAGE TWO TIMES A DAY BEFORE MEALS AND DRINK Rx Instructions: orally daily; fenofibrate nanocrystallized 145 mg tablet 145 mg PO DAILY Hold Instructions: Pt has been DC'd Janumet 50-1,000 mg tablet 1 tab PO DAILY Myrbetriq 25 mg tablet extended release 24 hr 25 mg PO Q24H Hold Instructions: Pt has been DC'd Patient Comments: TAKE ONE TABLET BY MOUTH EVERY DAY SWALLOWING WHOLE WITH WATER. DO NOT CRUSH CHEW AND/OR DIVIDE. Jardiance 25 mg tablet 25 mg PO DAILY aspirin [Adult Aspirin Regimen] 81 mg tablet,delayed release (DR/EC) 81 mg PO DAILY Referrals / Follow Up: Laura Bowden DO [Primary Care Provider] - Within 1 Week Caden Roy MD [Med Staff - Active Staff] - (Please call our office to schedule a 1 week follow-up appointment) Disposition Disposition (needs filled in before D/C Order can be placed): Home, Self Care Charges/Coding Visit Charges Inpatient E&M: 63652 Disch Hosp >30min 10/19/23 1450 <Electronically signed by Tirso Friend MD> Cosigner Signature (if applicable): CC: Dr. Laura Bowden DO; Dr. Tirso Friend MD~ Signed [facility] Work Phone: evaluation note* Diagnosis Onset Date Resolution Status Acquired hyperbilirubinemia acute Acute calculous cholecystitis acute Elevated liver enzymes acute [facility] Work Phone: evaluation note* Diagnosis Onset Date Resolution Status Acquired hyperbilirubinemia acute Elevated liver enzymes acute Acute calculous cholecystitis resolved S/P laparoscopic cholecystectomy acute S/P laparoscopic cholecystectomy acute [facility] Work Phone: Evaluation note* Diagnosis Chronic pain of right knee- Primary Chronic pain of left knee Pain in joint, lower leg Muscle weakness (generalized) Other abnormalities of gait and mobility [facility] Chronic pain of right knee- Primary Chronic pain of left knee Pain in joint, lower leg Muscle weakness (generalized) Other abnormalities of gait and mobility [facility] Diagnosis Chronic pain of right knee- Primary Chronic pain of left knee Pain in joint, lower leg Muscle weakness (generalized) Other abnormalities of gait and mobility [facility] Diagnosis Chronic pain of right knee- Primary Chronic pain of left knee Pain in joint, lower leg Muscle weakness (generalized) Other abnormalities of gait and mobility [facility] Diagnosis Chronic pain of right knee- Primary Chronic pain of left knee Pain in joint, lower leg Muscle weakness (generalized) Other abnormalities of gait and mobility [facility] Diagnosis Chronic pain of right knee- Primary Chronic pain of left knee Pain in joint, lower leg Muscle weakness (generalized) Other abnormalities of gait and mobility [facility] Diagnosis Onset Date Resolution Status Admit Date History of diabetes mellitus acute April 17, 2025 5:46pm Leukocytosis acute April 17, 025 5:46pm Nontraumatic pain and swelli ng of elbow acute April 17, 2025 5:46pm Septic arthritis of elbow, left acut e April 17, 2025 5:46pm [facility] Work Phone: History and physical note Author Enma Otoole [facility] October 15, 2023 8:39pm Note Date/Time October 15, 2023 8 :10pm [facility] Medical Records Department [address] [place] [address] H&P Exam - Hospitalist 10/15/232005 MR#: [id number] Acct: [id number] Name: PENNY MCKEON Rep #:[id number] : 1945 78 From: Enma Otoole MD PCP: Dr. Laura Bowden, DO Status:ADM I N Location: [address] HPI - General General Date of Admission: 10/15/23 Date of Service: 10/15/23 Chief Complaint: Abdominal pain, nausea. 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: Morbid obesity, HTN, HLD, Diabetes mellitus type II, Former tobacco use who [facility] ED on10/15/23 with history of episode of lower midsternal chest discomfort with nauseawith no radiation that occurred approximately 5 days prior following eating a heavy meal shrimp Jesus with resolution of discomfort the next day however again the evening prior to current presentation she was noted to have eaten a large sandwich as well as some cookies and donuts and had a similar episode of discomfort and eventually overnight while attempting to get up to use the restroom she felt incredibly weak and fatigued unfortunately falling with her leg stuck underneath the bed but could not get up until her daughter was able tohelp her and upon helping her she noted that her skin was yellowed prompting ED evaluation. Patient denies any current pain in her right upper quadrant or epigastric region at this time. She currently notes the discomfort to her rightupper quadrant and epigastric region is primary with palpation and rates it 5-6 out of 10 in severity or dull aching but with palpation sharp and can increase up to 8-9 out of 10 in severity. Workup in the ED included T98.1, heart rate 82, BP 153/64, respiratory rate 16, 97% on room air, CBC with WBC 20.1, hemoglobin 13, platelet 128 with left shift, CMP with sodium 129, potassium 3.3 noted to be slightly hemolyzed thus may be falsely increased, chloride 97, carbon oxide 20, BUN/creatinine 32/1.43, GFR 38, glucose 158, T. bili 12.50, AST/ALT 209/257, alk phos 306, troponin 21, lipase 93, gallbladder ultrasound with solitary gallstone with contracted gallbladder and thickening of the wall, positive Canela sign, acute cholecystitis cannot be excluded. In the ED patientministered maintenance IV fluid, Zosyn as well as Zofran 4 mg IV x 1. [facility] Medical History (Updated 10/15/23 @ 20:[address] Enma Otoole MD) Allergic rhinitis Anxiety and depression CKD (chronic kidney disease) Hyperlipidemia Hypertension Hypothyroidism Morbid obesity Type 2 diabetes mellitus Home Medications atorvastatin 20 mg tablet mg 10/15/23 [History Last Taken Unknown] carvedilol 25 mg tablet mg 10/15/23 [History Last Taken Unknown] cetirizine 10 mg tablet mg 10/15/23 [History Last Taken Unknown] cholestyramine-aspartame 4 gram oral powder for susp in a packet (CholestyramineLight) ea 10/15/23 [History Last Taken Unknown] empagliflozin 25 mg tablet (Jardiance) mg 10/15/23 [History Last Taken Unknown] ergocalciferol (vitamin D2) 1,250 mcg (50,000 unit) capsule 10/15/23 [History Last Taken Unknown] escitalopram oxalate 20 mg tablet mg 10/15/23 [History Last Taken Unknown] fenofibrate nanocrystallized 145 mg tablet mg PO 10/15/23 [History Last Taken Unknown] levothyroxine 50 mcg tablet mcg 10/15/23 [History Last Taken Unknown] mirabegron 25 mg tablet,extended release 24 hr (Myrbetriq) mg PO 10/15/23 [History Last Taken Unknown] montelukast 10 mg tablet mg 10/15/23 [History Last Taken Unknown] niacin 1,000 mg tablet,extended release 24 hr mg PO 10/15/23 [History Last Taken Unknown] oxybutynin chloride 10 mg tablet,extended release 24 hr mg PO 10/15/23 [History Last Taken Unknown] sitagliptin phosphate 50 mg-metformin 1,000 mg tablet (Janumet) tab 10/15/23 [History Last Taken Unknown] Allergy/AdvReac Type Severity Reaction Status Date / Time No Known Allergies Allergy Verified 10/15/23 17:26 Family History (Updated 10/15/23 @ 20:[address] Enma Otoole MD) Mother Cancer Diabetes Father Heart disease Surgical History (Updated 10/15/23 @ 20:[address] Enma Otoole MD) S/P left knee arthroscopy Social History (Updated 10/15/23 @ 20:[address] Enma Otoole MD) household members: none Smoking Status: Former smoker how long ago did patient quit smoking: Smoked age 22-until 30 years old, 1 ppd until quit. alcohol intake: never substance use type: does not use ROS ROS Narrative Admission Review of Systems: CONSTITUTIONAL: No weight loss, fever, chills, + weakness or fatigue. HEENT: + Scleral icterus. Eyes: No visual loss, blurred vision, double vision. Ears, Nose, Throat: No hearing loss, sneezing, congestion, runny nose or sore throat. SKIN: No rash or itching, lesions, wounds. + Jaundiced appearance. CARDIOVASCULAR: No chest pain, chest pressure or chest discomfort, palpitations,edema, orthopnea, syncopal events. RESPIRATORY: No shortness of breath, cough or sputum, wheezing, hemoptysis. GASTROINTESTINAL: + anorexia, nausea without vomiting, abdominal pain. No diarrhea, melena, BRBPR. GENITOURINARY: No dysuria, frequency, urgency or retention. NEUROLOGICAL: No headache, dizziness, syncope, paralysis, ataxia, numbness or tingling in the extremities, focal weakness, change in bowel or bladder control,seizure. MUSCULOSKELETAL: + muscle, back pain, joint pain or stiffness. HEMATOLOGIC: No anemia, bleeding or bruising. LYMPHATICS: No enlarged nodes. No history of splenectomy. PSYCHIATRIC: + History of anxiety and depression. ENDOCRINOLOGIC: No reports of sweating, cold or heat intolerance. No polyuria orpolydipsia. ALLERGIES: + History of allergic rhinitis. Vital Signs Vital Signs Vital Signs: 10/15/23 16:51 10/15/23 17:07 Temperature 98.1 F Temperature Source Temporal Pulse Rate 82 Respiratory Rate 16 Respiratory Effort Normal Respiratory Depth Normal Respiratory Pattern Normal Blood Pressure 153/64 H Blood Pressure Mean 93 Pulse Ox 97 Oxygen Delivery Method Room Air Room Air Weight Weight: 289 lb Body Mass Index (BMI) 49.6 Physical Exam Narrative Physical Examination: General: Awake, alert, oriented x 3 and cooperative, seated upright in the ED bed in no apparent distress, fatigued appearance, notes pain currently controlled, jaundiced. Skin: Jaundiced color with scleral icterus present, normal turgor, no cyanosis. HEENT: AT/NC, EOMI, PERRLA, dry MM, no carotid bruits, difficult to assess JVD given thickened neck. Lungs: CTA bilaterally, moderate effort, mild decrease BL bases, no rales, ronchi or wheezing. Heart: Regular rate and rhythm; no gallop, rub audible. Abdomen: Soft, morbidly obese, tenderness to palpation in the epigastric and right upper quadrant with rebound, mildly hyperactive BS, difficult to discern distention and HSM given pain with evaluation and habitus. Extremities: No cyanosis, clubbing, or edema. Neurological: Patient awake, alert, oriented as noted, cognitive function intact; pupils equally reactive to light and accommodation, cranial nerves II-XII grossly normal, moving all 4 extremities, no focal deficits, strength moderately to severely globally decreased secondary to acute presentation. Psychiatric: Affect appears fatigued, mildly uncomfortable, no acute evidence ofdepressive or anxiety feelings but does have underlying history. Results Lab / Micro Data 10/15/23 17:20 10/15/23 17:20 Labs: Laboratory Results - last 24 hr 10/15/23 17:20: WBC 20.1 H, RBC 4.09 L, Hgb 13.0, Hct 37.4, MCV 91.4, MCH 31.8, MCHC 34.8, RDW Std Deviation 48.5 H, RDW Coeff of Jeff 14.3, Plt Count 128 L, MPV9.9, Immature Gran % (Auto) 0.800, Neut % (Auto) 83.6 H, Lymph % (Auto) 5.3 L, [place] % (Auto) 6.0, Eos % (Auto) 3.9, Baso % (Auto) 0.4, Absolute Neuts (auto) 16.8 H, Absolute Lymphs (auto) 1.07, Nucleated RBC % 0, Sodium 129 L, Potassium 3.3 L, Chloride 97 L, Carbon Dioxide 20.0 L, Anion Gap 12, BUN 33 H, Creatinine 1.43 H, Estim Creat Clear Calc 45.05, Est GFR (MDRD) Af Amer 46 L, Est GFR (MDRD) Non-Af 38 L, BUN/Creatinine Ratio 23.1 H, Glucose 158 H, Calcium 9.3, Total Bilirubin 12.50 H, AST 209 H, ALT 257 H, Alkaline Phosphatase 306 H, Troponin I High Sens 21, Total Protein 6.9, Albumin 2.7 L, Globulin 4.2, Albumin/Globulin Ratio 0.6 L, Lipase 93 H 10/15/23 19:34: Urine Color Yellow, Urine Clarity Clear, Urine pH 6.5, Ur Specific [place] 1.005, Urine Protein 15 H, Urine Glucose (UA) 1000 H, Urine Ketones Negative, Urine Occult Blood 10 H, Urine Nitrite Negative, Urine Bilirubin Negative, Urine Urobilinogen Normal, Ur Leukocyte Esterase 500 H, Urine RBC 0 SEEN, Urine WBC 10-25 SEEN, Ur Squamous Epith Cells 0-5 SEEN, Urine Bacteria RARE, Urine Mucus 0 SEEN Rhythm Strip Rhythm Strip: Sinus Rhythm Rate: 80 Ectopy: None Imagaing Radiology Impression Gallbladder Ultrasound 10/15/23 17:08 IMPRESSION: Solitary gallstone with contracted gallbladder and thickening of the wall. Positive Canela sign. Acute cholecystitis cannot be excluded. If this represents a clinical concern, recommend follow-up with HIDA scan. Diffuse fatty liver, remainder of the right upper quadrant ultrasound unremarkable. Electronically Signed: Tracy Shearer MD at 19:54 EST , Assessment & Plan Assessment/Plan (1) Acute calculous cholecystitis: PLAN: Plan The 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 78 y/o F w/ PMHx: Morbid obesity, HTN, HLD, Diabetes mellitus type II, Former tobacco use who presents to the [facility] ED on 10/15/23 with history of episode of lower midsternal chest discomfort with nausea with no radiation that occurred approximately 5 days prior following eating a heavy meal shrimp Jesus with resolution of discomfort the next day however again the evening prior to current presentation she was noted to have eaten a large sandwich as well as some cookies and donuts and had a similar episode of discomfort and eventually overnight while attempting to get up to use the restroom she felt incredibly weak and fatigued unfortunately falling with her leg stuck underneaththe bed but could not get up until her daughter was able to help her and upon helping her she noted that her skin was yellowed prompting ED evaluation. #1. Acute cholecystitis with ? choledocholithiasis with notable jaundice with hyperbilirubinemia and transaminitis, abdominal pain: Will admit to MSyajairaon IVFs, NPO, PPI, IV/po pain control, trend CMP, maintain on IV Zosyn therapy, continue judicious IV fluids, continue General surgery and gastroenterology consultations. #2. Hyponatremia, acute, suspected hypovolemic, secondary to acute presentationas noted #1: Admission Na 129, Chl 97, will continue to judiciously hydrate and plan repeat CMP in AM. #3. Hypokalemia: Admission K+ 3.3, magnesium level requested, supplementation given, repeat level in AM. #4. CKD stage III unclear subtype versus Acute Renal Insufficiency versus DAYLIN, unable to determine as no prior renal function comparison: Admission BUN/creatinine 33/1.43, do suspect given underlying history of likely chronic kidney disease stage III however unable to absolutely say this and cannot say that patient has renal insufficiency or DAYLIN thus we will continue to hydrate andrepeat CMP in AM which will help further elucidate patient baseline renal function. #5. Diabetes mellitus type II: Hold oral home regimen, NPO status given presentation as noted, q 6 hour accu checks w/ ISS. #6. Hypertension: Continue home regimen including Coreg 25 mg p.o. twice daily,Lasix 20 mg p.o. daily, PRN hydralazine. #7. Hyperlipidemia: Will hold statin and fenofibrate therapy given significant transaminitis and hyperbilirubinemia. #8. Allergic rhinitis: We will continue patient home cetirizine 10 mg p.o. every morning and montelukast 10 mg daily #9. Anxiety and depression: Given significant hyperbilirubinemia and transaminitis. Patient home escitalopram regimen. #10. Hypothyroidism: We will continue patient home levothyroxine 50 mcg daily #11. Morbid Obesity: Weight loss and lifestyle changes encouraged. #12. DVT prophylaxis: SCDs, hold chemoprophylaxis for operative intervention needs. #13. CODE status: Patient ELIJAH is her daughter Analy who is present and living will is currently in place. Discussed CODE status at length including difference between FULL code, DNR-CCA and DNR-CC status. Following discussions about the differences in these status, requested Full Code status. Advanced CarePlanning Face to Face Time: 16 minutes. Charges/Coding Visit Charges Inpatient E&M: 20334 Init Hosp L3 Procedures Hospitalists Procedures: 14600 Advncd Care Plan 30 Min 10/15/232038 <Electronically signed by Enma Otoole MD> Cosigner Signature (if applicable): CC: Dr. Enma Otoole MD; Dr. Laura Bowden DO~ Signed [facility] Work Phone: Reason for referral (narrative)No reason for referral information availableWRegency [facility] Work Phone: Summary Purpose Family History Relationship Condition Age at Onset Recorded Date/T moshe mother Malignant neoplasm Unknown Diabetes mellitus Unknown father Cardiac disease Unknown Advance Directives Advance Directive Response Recorded Date/ Time Living Will No October 15 5:07pm Power of Count Team Member No October 15, 2023 5:07pm Advance Directive Response Recorded Date/ Time Name of Medical Power of Count Team Member ramy nevarez October 15, 2023 9:38pm Living Will Yes October 15 9:38pm Power of Count Team Member Yes October 15, 2023 9:38pm Advance Directive Response Recorded Date/ Time Name of Medical Power of Count Team Member ramy nevarez October 15, 2023 10:38pm Name of Medical Power of Count Team Member ANALY NEVAREZ January 12, 2024 10:04pm Living Will Yes January 12, 2024 10:04pm Power of Count Team Member Yes January 11 10:04pm Advance Directive Response Recorded Date/ Time Do you have a Healthcare Power of Count Team Member? Yes April 17, 2025 3:14pm Chief Complaint and Reason for Visit Chief Complaint ACUTE CHOLECYSTITIS/ CHOLEDOCHOLITHASIS W HYPERBIL Reason for Visit Acquired hyperbiliru binemia Acute calculous cholecystitis Elevated liver enzymes Chief Complaint ACUTE CHOLECYSTITIS/ CHOLEDOCHOLITHASIS W HYPERBIL ACUTE CHOLECYSTITIS/CHOLEDOCHOLITHASIS W HYPERBIL ACUTE CHOLECYSTITIS/CHOLEDOCHOLITHASIS W HYPERBIL ACUTE CHOLECYSTITIS/CHOLEDOCHOLITHASIS W HYPERBIL ACUTE CHOLECYSTITIS/CHOLEDOCHOLITHASIS W HYPERBIL ACUTE CHOLECYSTITIS/CHOLEDOCHOLITHASIS W HYPERBIL ACUTE CHOLECYSTITIS/CHOLEDOCHOLITHASIS W HYPERBIL ACUTE CHOLECYSTITIS/CHOLEDOCHOLITHASIS W HYPERBIL ACUTE CHOLECYSTITIS/CHOLEDOCHOLITHASIS W HYPERBIL ACUTE CHOLECYSTITIS/CHOLEDOCHOLITHASIS W HYPERBIL Reason for Visit Acquired hyperbiliru binemia Acute calculous cholecystitis Elevated liver enzymes Chief Complaint ACUTE CHOLECYSTITIS/ CHOLEDOCHOLITHASIS W HYPERBIL ACUTE CHOLECYSTITIS/CHOLEDOCHOLITHASIS W HYPERBIL ACUTE CHOLECYSTITIS/CHOLEDOCHOLITHASIS W HYPERBIL ACUTE CHOLECYSTITIS/CHOLEDOCHOLITHASIS W HYPERBIL ACUTE CHOLECYSTITIS/CHOLEDOCHOLITHASIS W HYPERBIL ACUTE CHOLECYSTITIS/CHOLEDOCHOLITHASIS W HYPERBIL ACUTE CHOLECYSTITIS/CHOLEDOCHOLITHASIS W HYPERBIL ACUTE CHOLECYSTITIS/CHOLEDOCHOLITHASIS W HYPERBIL ACUTE CHOLECYSTITIS/CHOLEDOCHOLITHASIS W HYPERBIL ACUTE CHOLECYSTITIS/CHOLEDOCHOLITHASIS W HYPERBIL ACUTE CHOLECYSTITIS/CHOLEDOCHOLITHASIS W HYPERBIL INFECTED TUBE POSS BILE DUCT LEAK GALLBLADDER 1-16 Reason for Visit Acquired hyperbiliru binemia Elevated liver enzymes Acute calculous cholecystitis S/P laparoscopic cholecystectomy S/P laparoscopic cholecystectomy Chief Complaint ACUTE CHOLECYSTITIS/ CHOLEDOCHOLITHASIS W HYPERBIL ACUTE CHOLECYSTITIS/CHOLEDOCHOLITHASIS W HYPERBIL ACUTE CHOLECYSTITIS/CHOLEDOCHOLITHASIS W HYPERBIL ACUTE CHOLECYSTITIS/CHOLEDOCHOLITHASIS W HYPERBIL ACUTE CHOLECYSTITIS/CHOLEDOCHOLITHASIS W HYPERBIL ACUTE CHOLECYSTITIS/CHOLEDOCHOLITHASIS W HYPERBIL ACUTE CHOLECYSTITIS/CHOLEDOCHOLITHASIS W HYPERBIL ACUTE CHOLECYSTITIS/CHOLEDOCHOLITHASIS W HYPERBIL ACUTE CHOLECYSTITIS/CHOLEDOCHOLITHASIS W HYPERBIL ACUTE CHOLECYSTITIS/CHOLEDOCHOLITHASIS W HYPERBIL ACUTE CHOLECYSTITIS/CHOLEDOCHOLITHASIS W HYPERBIL INFECTED TUBE POSS BILE DUCT LEAK GALLBLADDER 1-16 upper extremity Reason for Visit Acquired hyperbiliru binemia Elevated liver enzymes Acute calculous cholecystitis S/P laparoscopic cholecystectomy S/P laparoscopic cholecystectomy Chief Complaint Admit Date LEFT ELBOW SEPTIC ARTHRITIS April 17, 5:46pm Reason for Visit Admit Date History of diabetes mellitus April 17, 2025 5:46pm Leukocytosis April 17, 2025 5:46 pm Nontraumatic pain and swelling of elbow April 17, 2025 5:46pm Septic arthritis of elbow, left April 5:46pm Additional Source Comments INFORMATION SOURCE (unrecogn ized section and content) DATE CREATED AUTHOR 03/27/2018 [facility] DATE CREATED AUTHOR AUTHOR'S ORGANIZ ATION 11/18/2021 [facility] DATE CREATED AUTHOR AUTHOR'S ORGANIZ ATION 05/16/2024 [facility] DATE CREATED AUTHOR AUTHOR'S ORGANIZ ATION 06/11/2024 [facility] nt Care Teams (unrecognized sec tion and content) Team Status: Active Member Role Status Dates Dr. Laura Bowden DO Primary Care Provider Active Team Status: Active Member Role Status Dates Dr. Timbo Snowden MD Emergency Provider Active Dr. Laura Bowden DO Primary Care Provider Active Dr. Enma Otoole MD Admit Provider, Attending Prov ider Active Team Status: Active Member Role Status Dates Dr. Timbo Snowden MD Emergency Provider Active Dr. Laura Bowden DO Primary Care Provider Active Dr. Enma Otoole MD Admit Provider, Other Provider Active Dr. Caden Roy MD Other Provider Active Dr. Dennise Batres MD Attending Provider, Other Provid er Active Team Status: Active Member Role Status Dates Dr. Timbo Snowden MD Emergency Provider Active Dr. Laura Bowden DO Primary Care Provider Active Dr. Enma Otoole MD Admit Provider, Other Provider Active Dr. Caden Roy MD Attending Provider, Other Provi erinn Active Dr. Dennise Batres MD Other Provider Active Team Status: Active Member Role Status Dates Dr. Timbo Snowden MD Emergency Provider Active Dr. Laura Bowden DO Primary Care Provider Active Dr. Enma Otoole MD Admit Provider, Other Provider Active Dr. Caden Roy MD Attending Provider, Other Provi erinn Active Dr. Tirso Friend MD Other Provider Active Dr. Dennise Batres MD Other Provider Active Team Status: Active Member Role Status Dates Dr. Timbo Snowden MD Emergency Provider Active Dr. Laura Bowden DO Primary Care Provider Active Dr. Enma Otoole MD Admit Provider, Other Provider Active Dr. Caden Roy MD Other Provider Active Dr. Tirso Friend MD Attending Provider, Other Provider Active Dr. Dennise Batres MD Other Provider Active Team Status: Active Member Role Status Dates Dr. Timbo Snowden MD Emergency Provider Active Dr. Laura Bowden DO Primary Care Provider Active Dr. Enma Otoole MD Admit Provider, Other Provider Active Dr. Caden Roy MD Other Provider Active Dr. Tirso Friend MD Other Provider Active Dr. Dennise Batres MD Other Provider Active Dr. Patric Polanco , Attending Provider Active Team Status: Active Member Role Status Dates Dr. Timbo Snowden MD Emergency Provider Active Dr. Laura Bowden DO Primary Care Provider Active Dr. Enma Otoole MD Admit Provider, Other Provider Active Dr. Caden Roy MD Other Provider Active Dr. Tirso Friend MD Other Provider Active Dr. Dennise Batres MD Other Provider Active Brandie JOLLEY PAGet[place]wC Attending Provider Active Team Status: Inactive Member Role Status Dates Dr. Timbo Snowden MD Emergency Provider Active Dr. Laura Bowden DO Primary Care Provider Active Dr. Enma Otoole MD Admit Provider, Other Provider Active Dr. Caden Roy MD Other Provider Active Dr. Tirso Friend MD Attending Provider Active Dr. Dennise Batres MD Other Provider Active Team Status: Active Member Role Status Dates Dr. Timbo Snowden MD Emergency Provider Active Dr. Laura Bowden DO Primary Care Provider Active Dr. Enma Otoole MD Admit Provider, Other Provider Active Dr. Caden Roy MD Attending Provider, Other Provi erinn Active Dr. Dennise Batres MD Other Provider Active Dr. Tirso Friend MD Referring Provider Active Team Status: Active Member Role Status Dates Dr. Timbo Snowden MD Emergency Provider Active Dr. Laura Bowden DO Primary Care Provider Active Dr. Enma Otoole MD Admit Provider, Other Provider Active Dr. Caden Roy MD Other Provider Active Dr. Tirso Friend MD Referring Provider, Other Provider Active Dr. Dennise Batres MD Other Provider Active Dr. Patric Polanco DO Attending Provider Active Team Status: Inactive Member Role Status Dates Dr. Laura Bowden DO Primary Care Provider, Referring Provider Active Dr. Caden Roy MD Attending Provider Active Team Status: Inactive Member Role Status Dates Dr. Laura Bowden DO Primary Care Provider, Referring Provider Active Brandie JOLLEY PA-C Attending Provider Active Team Status: Inactive Member Role Status Dates Dr. Laura Bowden DO Primary Care Provider Active Brandie JOLLEY PA-C Attending Provider, Referring Provider Active Team Status: Inactive Member Role Status Dates Dr. Laura Bowden DO Primary Care Provider Active Dr. Dandy Bueno MD Emergency Provider Active Team Status: Active Member Role/Relationship Status Dates Dr. Laura Bowden DO Primary Care Provider Active Team Status: Active Member Role/Relationship Status Dates Dr. Laura Bowden DO Primary Care Provider Active Start: April 17, 2025 Dr. Sanford Wise MD Emergency Provider Active S tart: April 17, 2025 Dr. Tirso Vazquez DO Attending Provider Active Start: April 17, 2025 Goals (unrecognized section and content) Goals may be documented in a n alternate sectionGoals may be documented in an alternate section Source Comments (unrecognize d section and content) In the event this informatio n is protected by the Federal Confidentiality of Alcohol and Drug Abuse Patient Records regulations: The Federal rules restrict any use of the information to criminally investigate or prosecute any alcohol or drug abuse patient.[facility] the event this information is protected by the Federal Confidentiality of Alcohol and Drug Abuse Patient Records regulations: The Federal rules restrict any use of the information to criminally investigate or prosecute any alcohol or drug abuse patient.[facility] the event this information is protected by the Federal Confidentiality of Alcohol and Drug Abuse Patient Records regulations: The Federal rules restrict any use of the information to criminally investigate or prosecute any alcohol or drug abuse patient.[facility] the event this information is protected by the Federal Confidentiality of Alcohol and Drug Abuse Patient Records regulations: The Federal rules restrict any use of the information to criminally investigate or prosecute any alcohol or drug abuse patient.[facility] the event this information is protected by the Federal Confidentiality of Alcohol and Drug Abuse Patient Records regulations: The Federal rules restrict any use of the information to criminally investigate or prosecute any alcohol or drug abuse patient.[facility] the event this information is protected by the Federal Confidentiality of Alcohol and Drug Abuse Patient Records regulations: The Federal rules restrict any use of the information to criminally investigate or prosecute any alcohol or drug abuse patient.[facility] the event this information is protected by the Federal Confidentiality of Alcohol and Drug Abuse Patient Records regulations: The Federal rules restrict any use of the information to criminally investigate or prosecute any alcohol or drug abuse patient.[facility] the event this information is protected by the Federal Confidentiality of Alcohol and Drug Abuse Patient Records regulations: The Federal rules restrict any use of the information to criminally investigate or prosecute any alcohol or drug abuse patient.[facility] the event this information is protected by the Federal Confidentiality of Alcohol and Drug Abuse Patient Records regulations: The Federal rules restrict any use of the information to criminally investigate or prosecute any alcohol or drug abuse patient.[facility] the event this information is protected by the Federal Confidentiality of Alcohol and Drug Abuse Patient Records regulations: The Federal rules restrict any use of the information to criminally investigate or prosecute any alcohol or drug abuse patient.[facility] Hospital[facility] the event this information is protected by the Federal Confidentiality of Alcohol and Drug Abuse Patient Records regulations: The Federal rules restrict any use of the information to criminally investigate or prosecute any alcohol or drug abuse patient.[facility] Reason for Visit (unrecogniz ed section and content) Reason Comments Physical Therapy Specialty Diagnoses / Procedures Referred By Contac t Referred To Contact Physical Therapy / PHYSICAL THERAPY Diagnoses Pain in left knee Pain in right knee Pain in right shoulder aquatic/ jena avila/ m25.562 pain left knee/ m25.651 pain in right knee/ m25.511 pain in right shoulder Procedures NEW RS PT AQUATIC ORTHO WALK Jena Avila MD [address] [facility] [address] [address] Blaze Alejandro, PT, DPT Referral ID Status Reason Start Date Expiration Date V isits Requested Visits Authorized [id number] Authorized 10/03/2023 10/02/2024 99 99 Reason Comments PT Progress Note Reason Comments PT Discharge Reason Comments PT Eval FOR RECORDS PERTAINING TO PATIENTS WHO ARE [...] BE BASED ON THE PRIMARY CLINICAL RECORDS. [facility] [employer] [facility]. provides no warranty or guarantee of the accuracy or completeness of information in this document.
--- OUTSIDE RECORDS SUMMARY | 2025-04-17 23:28 | XMS RPT_ITS | CCD ---
Author Organization [facility] Care Team Providers Care Bobbin Handler Name Role Phone CADEN SAUCEDA (FEL) Unavailable [...] Provider Dr. Enma Otoole Admit Provider Dr. Emna Otoole Other Provider Dr. Caden Roy Other [...] L Referring Unavailable GISELA LIM Referring Unavailable DENNSIE, LAURA L Referring Unavailable MARGARITA, JENA A [...] Dr. Laura Bowden DO Primary Care Provider Dr. Sanford Wise MD Emergency Provider [phone] Dr. Tirso Vazquez DO Attending Provider [phone] Medications Current Medications Medication Drug Class(es) Dates [...] Auto (Unsp spec) [#/Vol] 1.04 10*3/uL 0.83-4.51 [facility] Absolute neutrophil countOrd ered By: Sanford Wise on 04-17-2025 Neutrophils (Bld) [#/Vol] 11.2 10*3/uL High 2.0-7.7 [facility] Anion gap in Serum or Plasma Ordered By: Sanford Wise on 04-17-2025 Anion gap [Moles/Vol] 19 mmol/L High 5-15 [facility] Automated lymphocyte count a s percentage of total leukocytesOrdered By: Sanford Wise on 04-17-2025 Lymphocytes/100 WBC Auto (Unsp spec) 6.2 % Low 19-41 [facility] BUN/creatinine ratioOrdered By: Sanford Wise on 04-17-2025 Urea nitrogen/Creatinine [Mass ratio] 10.9 mg/mg 10-20 [facility] Basophil percentageOrdered B y: Sanford Wise on 04-17-2025 Basophils/100 WBC (Bld) 0.7 % 0-1 [facility] Blood manual differential co mment interpretation (narrative result)Ordered By: Sanford Wise on 04-17-2025 Manual differential comment Yusuf (Bld) [Interp] SCANNED [facility] Carbon dioxide, total [Moles /volume] in Central venous bloodOrdered By: Sanford Wise on 04-17-2025 CO2 [Moles/Vol] 19.1 mmol/L Low 21.0-32.0 [facility] Chloride assayOrdered By: Darwin Wsie on 04-17-2025 Chloride [Moles/Vol] 95 mmol/L Low 98-108 [facility] Eosinophil percentageOrdered By: Sanford Wise on 04-17-2025 Eosinophils/100 WBC (Bld) 17.9 % High 0-5 [facility] Erythrocyte distribution wid th ratioOrdered By: Sanford Wise on 04-17-2025 Erythrocyte distribution width (RBC) [Ratio] 12.8 % 11.6-14.6 [facility] Erythrocyte distribution wid th standard deviationOrdered By: Sanford Wise on 04-17-2025 Erythrocyte distribution width (RBC) [Ratio] 43.8 fl 35.1-43.9 [facility] Erythrocyte sedimentation ra teOrdered By: Sanford Wise on 04-17-2025 ESR (Bld) [Velocity] 51 mm/h High 0-30 [facility] Glomerular filtration rate ( GFR) estimation/1.73 sq m using serum, plasma, or whole bOrdered By: Sanford Wise on 04-17-2025 GFR/1.73 sq M.predicted among non-blacks MDRD (S/P/Bld) [Vol rate/Area] 59 mL/min/{1.73_m2} Low >60 [facility] Comment on above: mL/min/1.73m2 CKD-EP I Creatinine Equation (2020) Hematocrit Auto (Bld) [Volum e fraction]Ordered By: Sanford Wise on 04-17-2025 Hematocrit (Bld) [Volume fraction] 38.9 % 37-47 [facility] Hemoglobin measurementOrdere d By: Sanford Wise on 04-17-2025 Hemoglobin (Bld) [Mass/Vol] 14.0 g/dL 12.0-15.0 [facility] Immature granulocytes/100 WB C Auto (Bld)Ordered By: aSnford Wise on 04-17-2025 Immature granulocytes/100 WBC (Bld) 0.500 % 0.0-0.9 [facility] Comment on above: IG% - Immature Granu locytes (promyelocytes, myelocytes and metamyelocytes) > 1% indicates that a LEFT SHIFT is Present. MCV (mean corpuscular volume ) determinationOrdered By: Sanford Wise on 04-17-2025 MCV (RBC) [Entitic vol] 93.7 fL 81-99 [facility] Mean corpuscular hemoglobin (MCH) determinationOrdered By: Sanford Wise on 04-17-2025 MCH (RBC) [Entitic mass] 33.7 pg High 27.0-32.0 [facility] Mean corpuscular hemoglobin concentration (MCHC) determinationOrdered By: Sanford Wsie on 04-17-2025 MCHC (RBC) [Mass/Vol] 36.0 g/dL 32-36 [facility] Mean platelet volume determi nationOrdered By: Sanford Wise on 04-17-2025 Platelet mean volume (Bld) [Entitic vol] 12.8 fL High 6.2-12.0 [facility] Monocyte percentageOrdered B y: Sanford Wise on 04-17-2025 Monocytes/100 WBC (Bld) 8.0 % 0-10 [facility] Neutrophil percentageOrdered By: Sanford Wise on 04-17-2025 Neutrophils/100 WBC (Bld) 66.7 % 47-70 [facility] Nucleated red blood cell per centageOrdered By: Sanford Wise on 04-17-2025 Nucleated RBC/100 WBC (Bld) [Ratio] 0 % 0-5 [facility] Platelet countOrdered By: Darwin Wise on 04-17-2025 Platelets (Bld) [#/Vol] 165 10*3/uL 150-450 [facility] Potassium measurement (mass/ volume)Ordered By: Sanford Wise on 04-17-2025 Potassium (Unsp spec) [Mass/Vol] 3.9 mmol/L 3.3-5.1 [facility] Comment on above: Hemolysis present, R esults could be affected. RBC Auto (Bld) [#/Vol]Ordere d By: Sanford Wise on 04-17-2025 RBC (Bld) [#/Vol] 4.15 10*6/uL Low 4.2-5.4 [place] Serum creatinine measurement (mass/volume)Ordered By: Sanford Wise on 04-17-2025 Creatinine [Mass/Vol] 0.98 mg/dL 0.70-1.20 [facility] Serum glucose measurement (m ass/volume)Ordered By: Sanford Wise on 04-17-2025 Glucose [Mass/Vol] 225 mg/dL High 70-99 [facility] Serum or plasma C reactive p rotein measurement (mass/volume)Ordered By: Sanford Wise on 04-17-2025 CRP [Mass/Vol] 119.00 mg/L High 0.0-3.0 [facility] Serum or plasma calcium esthela urement (mass/volume)Ordered By: Sanford Wise on 04-17-2025 Calcium [Mass/Vol] 9.5 mg/dL 7.6-11.0 [facility] Serum or plasma urea nitroge n measurement (mass/volume)Ordered By: Sanford Wise on 04-17-2025 Urea nitrogen [Mass/Vol] 11 mg/dL 4-19 [facility] Serum or plasma uric acid me asurement (mass/volume)Ordered By: Sanford Wise on 04-17-2025 Urate [Mass/Vol] 7.8 mg/dL High 2.6-6.0 [facility] Comment on above: The drugs N-Acetylcy steine and Metamizole may falsely depress this assay. Sodium levelOrdered By: Sanford Wise on 04-17-2025 Sodium [Moles/Vol] 133 mmol/L 133-145 [facility] White blood cell (WBC) count Ordered By: Sanford Wise on 04-17-2025 WBC (Bld) [#/Vol] 16.8 10*3/uL High 4.4-11.0 [place] 25(OH)D3 SerPl-ncon 2023 25-hydroxyvitamin D3 [Mass/Vol] 39.0 ng/mL Normal 30.0-100.0 [facility] Comment on above: Order Comment: Brenda garcia Type: BLOOD SPECIMEN Ordering Facility: [facility] Address: [address] [place], [place] [address] [address] Result Comment: Defi ciency\X09\Less than 20 ng/mL Insufficiency\X09\20 - Less than 30 ng/mL Sufficiency\X09\30 - 100 ng/mL Performed By: #### 2 4323-8, 3015-12, 1988-12 #### [facility] CLIA [id number] [address] [place] [address] [place] #### [id number] #### [facility] CLIA [id number] [address] [place] [address] STATES OF [facility] CLIA [id number] [address] [place] [address] [place] #### 79810-7 #### [facility] CLIA [id number] [address] [place] [address] [place] ALBUMIN/CREATININE RATIO, UR INEon 06-07-2024 Albumin DL <= 20 mg/L (U) [Mass/Vol] 28.0 mg/L High 0.0-19.0 [facility] Comment on above: Order Comment: Speci radha Type: BLOOD SPECIMEN Ordering Facility: [facility] Address: [address] [place], [place] [address] [address] Performed By: #### 2 4323-8, 3015-12, 1988-12 #### [facility] CLIA [id number] [address] [place] [address] #### [id number] #### [facility] CLIA [id number] [address] [place] [address] [place] [facility] CLIA [id number] [address] [facility] [address] [place] [address] [place] #### [id number] #### [facility] CLIA [id number] [address] [place] [address] [place] Albumin/Creatinine (U) [Mass ratio] 33 mg/g High <30 [facility] Comment on above: Order Comment: Speci men Type: BLOOD SPECIMEN Ordering Facility: [facility] [employer] [facility] Address: [address] [place] [phone] Result Comment: Adul t Male and Female Nephrotic Criteria: <30 mg/g is considered normal to mildly increased 30-300 mg/g is considered moderately increased >300 mg/g is considered severely increased KDIGO. (2013). KDIGO 2012 Clinical Practice Guideline for the Evaluation and Management of Chronic Kidney Disease. Official Journal of the International Society of Nephrology, 3(1), 1-150. Performed By: #### 2 4323-8, 3015-12, 1988-12 #### [facility] CLIA [id number] [address] [place] [address] [place] #### [id number] #### [facility] CLIA [id number] [address] [place] [address] [place] [facility] CLIA [id number] [address] [place] [address] [place] #### [id number] #### [facility] CLIA [id number] [address] [place], [place] [address] [place] Creatinine (U) [Mass/Vol] 84.4 mg/dL Normal 29.0-226.0 [facility] Comment on above: Order Comment: Speci men Type: BLOOD SPECIMEN Ordering Facility: [facility] Address: [address] [place] [phone] Performed By: #### 2 4323-8, 3015-12, 1988-12 #### [facility] CLIA [id number] [address] [place] [address] [place] #### 33066-3 #### [facility] CLIA [id number] [address] [place] [address] [place] [facility] CLIA [id number] [address] [place] [address] [place] #### [id number] #### [facility] CLIA [id number] [address] [place] [address] [place] BLOOD TB SCREENon 06-07-2024 M. tuberculosis tuberculin stim IFN-g Ql (Bld) Negative Normal [facility] Comment on above: Order Comment: Speci men Type: BLOOD SPECIMEN Ordering Facility: [facility] Address: [address] [place] [phone] Performed By: #### 2 4323-8, 3015-12, 1988-12 #### [facility] CLIA [id number] [address] [place], [place] [address] [place] #### [id number] #### [facility] CLIA [id number] [address] [place], [place] [address] [place] [facility] CLIA [id number] [address] [place] [address] [place] #### [id number] #### [facility] CLIA [id number] [address] [place] [address] [place] MITOGEN MINUS NIL >9.98 Normal >=0.50 [facility] Comment on above: Order Comment: Speci men Type: BLOOD SPECIMEN Ordering Facility: [facility] Address: [address] [place] [phone] Performed By: #### 2 4323-8, 3, 1988-12 #### [facility] CLIA [id number] [address] [place] [address] [place] #### 03064-0 #### [facility] CLIA [id number] [address] [place] [address] [facility] CLIA [id number] [address] [address] [place] #### 40071-7 #### [facility] CLIA [id number] [address] [place] [address] [place] TB GAMMA INTERPRETATION Infection with M . tuberculosis complex is unlikely. If latent tuberculosis infection is highly suspected, a negative result does not rule out the infection. Specimens from immunocompromised patients and those <5 years of age may show false negative results. In case of a contact investigation, please repeat 8-12 weeks after a known exposure. Normal [facility] Comment on above: Order Comment: Speci radha Type: BLOOD SPECIMEN Ordering Facility: [facility] Address: [address] [place] [phone] Performed By: #### 2 4323-8, 3015-12, 1988-12 #### [facility] CLIA [id number] [address] [place] [address] [place] #### [id number] #### [facility] CLIA [id number] [address] [place] [address] [place] [facility] CLIA [id number] [address] [place] [address] [place] #### 26592-9 #### [facility] CLIA [id number] [address] [place] [id number] [place] TB NIL 0.02 IU/mL Normal <=8.00 [facility] Comment on above: Order Comment: Amosi men Type: BLOOD SPECIMEN Ordering Facility: [facility] Address: [address] [place] [phone] Performed By: #### 2 4323-8, 3015-12, 1988-12 #### [facility] CLIA [id number] [address] [place] [address] [place] #### 14262-3 #### [facility] CLIA [id number] [address] [place] [address] [place] [facility] CLIA [id number] [address] [place] [address] [place] #### 28362-0 #### [facility] CLIA [id number] [address] [place], [place] [address] [place] TB1 AG MINUS NIL 0.02 IU/mL Normal <0.35 [facility] Comment on above: Order Comment: Speci men Type: BLOOD SPECIMEN Ordering Facility: [facility] Address: [address] [place] [phone] Performed By: #### 2 4323-8, 3015-12, 1988-12 #### [facility] CLIA [id number] [address] [place] [address] [place] #### [id number] #### [facility] CLIA [id number] [address] [place] [address] [place] [facility] CLIA [id number] [address] [place] [address] [place] #### 10940-6 #### [facility] CLIA [id number] [address] [place] [address] [place] TB2 AG MINUS NIL 0.03 IU/mL Normal <0.35 [facility] Comment on above: Order Comment: Speci men Type: BLOOD SPECIMEN Ordering Facility: [facility] Address: [address] [place] [phone] Performed By: #### 2 4323-8, 3015-12, 1988-12 #### [facility] CLIA [id number] [address] [place], [place] [address] [place] #### 39952-2 #### [facility] CLIA [id number] [address] [place], [place] [address] [facility] CLIA [id number] [address] [place] [address] STATES [place] #### 13465-3 #### [facility] CLIA [id number] [address] [place] [address] [place] Bilirub Conj SerPl-mCncon Bilirubin.conjugated [Mass/Vol] 0.1 mg/dL Normal 0.0-0.4 [facility] Comment on above: Order Comment: Speci men Type: BLOOD SPECIMEN Ordering Facility: [facility] Address: [address] [place] [phone] Performed By: #### 2 4323-8, 3, 1988-12 #### [facility] CLIA [id number] [address] [place], [place] [address] [place] #### 30189-9 #### [facility] CLIA [id number] [address] [place], [place] [address] [place] OF [facility] CLIA [id number] [address] [place] [address] OF [place] #### 08133-1 #### [facility] CLIA [id number] [address] [place] [address] [place] CBC W Auto Differential pane l (Bld)on 06-07-2024 Basophils (Bld) [#/Vol] 0.09 10*3/uL Normal <0.11 [facility] Comment on above: Order Comment: Speci men Type: BLOOD SPECIMEN Ordering Facility: [facility] Address: [address] [place] [phone] Performed By: #### 2 4323-8, 3, 1988-12 #### [facility] CLIA [id number] [address] [place] [address] [place] #### 11357-4 #### [facility] CLIA [id number] [address] [place] [address] [place] [facility] CLIA [id number] [address] [place] [address] [place] #### 90278-8 #### [facility] CLIA [id number] [address] [place] [address] [place] Basophils/100 WBC (Bld) 0.6 % Normal [facility] Comment on above: Order Comment: Speci men Type: BLOOD SPECIMEN Ordering Facility: [facility] Address: [address] [place] [phone] Performed By: #### 2 4323-8, 3015-12, 1988-12 #### [facility] CLIA [id number] [address] [place], [place] [address] [place] #### 06711-2 #### [facility] CLIA [id number] [address] [place], [place] [address] [place] [facility] CLIA [id number] [address] [address] [place] #### 04865-2 #### [facility] CLIA [id number] [address] [place] [address] [place] Differential cell count method Nom (Bld) Auto Normal [facility] Comment on above: Order Comment: Speci men Type: BLOOD SPECIMEN Ordering Facility: [facility] Address: [address] [place] [phone] Performed By: #### 2 4323-8, 3015-12, 1988-12 #### [facility] CLIA [id number] [address] [place] [address] [place] #### 10252-6 #### [facility] CLIA [id number] [address] [place] [address] [place] [facility] CLIA [id number] [address] [place] [address] [place] #### 24148-2 #### [facility] CLIA [id number] [address] [facility] [place] [id number] [place] Eosinophils (Bld) [#/Vol] 8.87 10*3/uL High <0.46 [facility] Comment on above: Order Comment: Speci men Type: BLOOD SPECIMEN Ordering Facility: [facility] Address: [address] [place] [phone] Performed By: #### 2 4323-8, 3015-12, 1988-12 #### [facility] CLIA [id number] [address] [place] [address] [place] #### 33584-1 #### [facility] CLIA [id number] [address] [place] [address] [place] [facility] CLIA [id number] [address] [place] [address] [place] #### 03523-0 #### [facility] CLIA [id number] [address] [place] [address] [place] Eosinophils/100 WBC (Bld) 55.2 % Normal [facility] Comment on above: Order Comment: Speci men Type: BLOOD SPECIMEN Ordering Facility: [facility] Address: [address] [place], [place] [address] [address] Performed By: #### 2 4323-8, 3015-12, 1988-12 #### [facility] CLIA [id number] [address] [place] [address] [place] #### 45614-2 #### [facility] CLIA [id number] [address] [place] [address] [place] [facility] CLIA [id number] [address] [place] [address] [place] #### 65888-0 #### [facility] CLIA [id number] [address] [place] [address] [place] Erythrocyte distribution width (RBC) [Ratio] 14.0 % Normal 11.5-15.0 [facility] Comment on above: Order Comment: Speci men Type: BLOOD SPECIMEN Ordering Facility: [facility] Address: [address] [place] [phone] Performed By: #### 2 4323-8, 3015-12, 1988-12 #### [facility] CLIA [id number] [address] [place], [place] [address] [place] #### 77747-5 #### [facility] CLIA [id number] [address] [place], [place] [address] [place] [facility] CLIA [id number] [address] [place] [address] [place] #### 61660-2 #### [facility] CLIA [id number] [address] [place] [address] [place] Hematocrit (Bld) [Volume fraction] 38.5 % Normal 36.0-46.0 [facility] Comment on above: Order Comment: Speci men Type: BLOOD SPECIMEN Ordering Facility: [facility] Address: [address] [place] [phone] Performed By: #### 2 4323-8, 3015-12, 1988-12 #### [facility] CLIA [id number] [address] [place], [place] [address] [place] #### 19662-2 #### [facility] CLIA [id number] [address] [place], [place] [address] [place] [facility] CLIA [id number] [address] [facility] [address] [place] [address] [place] #### 00639-6 #### [facility] CLIA [id number] [address] [address] [place] Hemoglobin (Bld) [Mass/Vol] 12.9 g/dL Normal 11.5-15.5 [facility] Comment on above: Order Comment: Speci men Type: BLOOD SPECIMEN Ordering Facility: [facility] Address: [address] [place] [phone] Performed By: #### 2 4323-8, 3015-12, 1988-12 #### [facility] CLIA [id number] [address] [place] [address] [place] #### 80286-5 #### [facility] CLIA [id number] [address] [place] [address] [place] [facility] CLIA [id number] [address] [place] [address] [place] #### 48892-4 #### [facility] CLIA [id number] [address] [place] [address] [place] Immature granulocytes (Bld) [#/Vol] 0.05 10*3/uL Normal <0.10 [facility] Comment on above: Order Comment: Speci men Type: BLOOD SPECIMEN Ordering Facility: [facility] Address: [address] [place] [phone] Performed By: #### 2 4323-8, 3015-12, 1988-12 #### [facility] CLIA [id number] [address] [place] [address] [place] #### 61290-2 #### [facility] CLIA [id number] [address] [place] [address] [place] [facility] CLIA [id number] [address] [facility] [address] [place] [address] [place] #### [id number] #### [facility] CLIA [id number] [address] [place] [address] [place] Immature granulocytes/100 WBC (Bld) 0.3 % Normal [facility] Comment on above: Order Comment: Speci men Type: BLOOD SPECIMEN Ordering Facility: [facility] Address: [address] [place] [phone] Performed By: #### 2 4323-8, 3015-12, 1988-12 #### [facility] CLIA [id number] [address] [place] [address] [place] #### 91163-4 #### [facility] CLIA [id number] [address] [place] [address] [place] [facility] CLIA [id number] [address] [place] [address] [place] #### 90350-9 #### [facility] CLIA [id number] [address] [place] [address] [place] Lymphocytes (Bld) [#/Vol] 2.45 10*3/uL Normal 1.00-4.00 [facility] Comment on above: Order Comment: Speci men Type: BLOOD SPECIMEN Ordering Facility: [facility] Address: [address] [place] [phone] Performed By: #### 2 4323-8, 3015-12, 1988-12 #### [facility] CLIA [id number] [address] [place] [address] [place] #### 44411-1 #### [facility] CLIA [id number] [address] [place], [place] [address] [place] [facility] CLIA [id number] [address] [place] [address] [place] #### 26337-9 #### [facility] CLIA [id number] [address] [place] [address] [place] Lymphocytes/100 WBC (Bld) 15.2 % Normal [facility] Comment on above: Order Comment: Speci men Type: BLOOD SPECIMEN Ordering Facility: [facility] Address: [address] [place] [phone] Performed By: #### 2 4323-8, 3015-3, 1988-12 #### [facility] CLIA [id number] [address] [place] [address] [place] #### 49236-7 #### [facility] CLIA [id number] [address] [place] [address] [place] [facility] CLIA [id number] 7337 [facility] [address] [place] [address] [place] #### 97021-6 #### [facility] CLIA [id number] [address] [place] [address] [place] MCH (RBC) [Entitic mass] 31.9 pg Normal 26.0-34.0 [facility] Comment on above: Order Comment: Speci men Type: BLOOD SPECIMEN Ordering Facility: [facility] Address: [address] [place] [phone] Performed By: #### 2 4323-8, 3015-3, 1988-12 #### [facility] CLIA [id number] [address] [place] [address] [place] #### 29748-7 #### [facility] CLIA [id number] [address] [place], [place] [address] [place] [facility] CLIA [id number] [address] [facility] [address] [place] [address] [place] #### 04542-8 #### [facility] CLIA [id number] [address] [address] [place] MCHC (RBC) [Mass/Vol] 33.5 g/dL Normal 30.5-36.0 [facility] Comment on above: Order Comment: Speci men Type: BLOOD SPECIMEN Ordering Facility: [facility] Address: [address] [place] [phone] Performed By: #### 2 4323-8, 3015-3, 1988-12 #### [facility] CLIA [id number] [address] [place] [address] [place] #### 27149-2 #### [facility] CLIA [id number] [address] [place], [place] [address] [place] [facility] CLIA [id number] [address] [facility] [address] [place] [address] [place] #### 53015-5 #### [facility] CLIA [id number] [address] [address] [place] MCV (RBC) [Entitic vol] 95.3 fL Normal 80.0-100.0 M [facility] Comment on above: Order Comment: Speci men Type: BLOOD SPECIMEN Ordering Facility: [facility] Address: [address] [place] [phone] Performed By: #### 2 4323-8, 3015-3, 1988-12 #### [facility] CLIA [id number] [address] [place] [address] [place] #### 03168-6 #### [facility] CLIA [id number] [address] [place], [place] [address] [place] [facility] CLIA [id number] [address] [facility] [address] [place] [address] [place] #### 47859-6 #### [facility] CLIA [id number] [address] [place] [id number] [place] Monocytes (Bld) [#/Vol] 0.98 10*3/uL High <0.87 [facility] Comment on above: Order Comment: Speci men Type: BLOOD SPECIMEN Ordering Facility: [facility] Address: [address] [place] [phone] Performed By: #### 2 432-8, 3015-12, 1988-12 #### [facility] CLIA [id number] [address] [place], [place] [address] [place] #### 53348-9 #### [facility] CLIA [id number] [address] [place], [place] [address] [place] [facility] CLIA [id number] [address] [place] [address] [place] #### 51540-9 #### [facility] CLIA [id number] [address] [place] [address] [place] Monocytes/100 WBC (Bld) 6.1 % Normal [facility] Comment on above: Order Comment: Speci men Type: BLOOD SPECIMEN Ordering Facility: [facility] Address: [address] [place] [phone] Performed By: #### 2 4323-8, 3015-12, 1988-12 #### [facility] CLIA [id number] [address] [place], [place] [address] [place] #### 40071-5 #### [facility] CLIA [id number] [address] [place], [place] [address] [place] [facility] CLIA [id number] [address] [facility] [address] [place] [address] [place] #### 78762-6 #### [facility] CLIA [id number] [address] [place] [id number] [place] Neutrophils (Bld) [#/Vol] 3.64 10*3/uL Normal 1.45-7.50 [facility] Comment on above: Order Comment: Speci men Type: BLOOD SPECIMEN Ordering Facility: [facility] Address: [address] [place] [phone] Performed By: #### 2 4323-8, 3015-12, 1988-12 #### [facility] CLIA [id number] [address] [place] [address] [place] #### 39816-8 #### [facility] CLIA [id number] [address] [place] [address] [place] [facility] CLIA [id number] [address]337 [place] [address] [place] #### 84210-4 #### [facility] CLIA [id number] [address] [place] [address] [place] Neutrophils/100 WBC (Bld) 22.6 % Normal [facility] Comment on above: Order Comment: Speci men Type: BLOOD SPECIMEN Ordering Facility: [facility] Address: [address] [place], [place] [address] Performed By: #### 2 4323-8, 3015-12, 1988-12 #### [facility] CLIA [id number] [address] [place] [address] [place] #### 68509-7 #### [facility] CLIA [id number] [address] [place] [address] [place] [facility] CLIA [id number] [address] [facility] [place] [address] [place] #### 32899-1 #### [facility] CLIA [id number] [address] [place] [address] [place] Nucleated RBC (Bld) [#/Vol] 10*3/uL Normal <0.01 [facility] Comment on above: Order Comment: Speci men Type: BLOOD SPECIMEN Ordering Facility: [facility] Address: [address] [place] [phone] Performed By: #### 2 4323-8, 3015-3, 1988-12 #### [facility] CLIA [id number] [address] [place] [address] [place] #### 77222-5 #### [facility] CLIA [id number] [address] [place] [address] [place] [facility] CLIA [id number] [address] [place] [address] [place] #### 97235-0 #### [facility] CLIA [id number] [address] [place] [address] [place] Nucleated RBC/100 WBC (Bld) [Ratio] 0.0 /[address] [facility] Comment on above: Order Comment: Speci men Type: BLOOD SPECIMEN Ordering Facility: [facility] Address: [address] [place] [phone] Performed By: #### 2 4323-8, 3015-12, 1988-12 #### [facility] CLIA [id number] [address] [place] [address] [place] #### 91141-8 #### [facility] CLIA [id number] [address] [place] [address] [place] [facility] CLIA [id number] 7337 [facility] [place] [address] [place] #### 20584-8 #### [facility] CLIA [id number] [address] [place] [address] [place] Platelet mean volume (Bld) [Entitic vol] 9.8 fL Normal 9.0-12.7 [facility] Comment on above: Order Comment: Speci men Type: BLOOD SPECIMEN Ordering Facility: [facility] Address: [address] [place] [phone] Performed By: #### 2 4323-8, 3015-3, 1988-12 #### [facility] CLIA [id number] [address] [place] [address] [place] #### 11624-1 #### [facility] CLIA [id number] [address] [place] [address] [place] [facility] CLIA [id number] [address] [facility] [address] [address] [place] #### 93835-8 #### [facility] CLIA [id number] [address] [address] [place] Platelets (Bld) [#/Vol] 126 10*3/uL Low 150-400 [facility] Comment on above: Order Comment: Speci men Type: BLOOD SPECIMEN Ordering Facility: [facility] Address: [address] [place] [phone] Performed By: #### 2 4323-8, 3015-3, 1988-12 #### [facility] CLIA [id number] [address] [place], [place] [address] [place] #### 27460-0 #### [facility] CLIA [id number] [address] [place], [place] [address] [place] [facility] CLIA [id number] 7[address] [facility] [address] [address] [place] #### 77707-7 #### [facility] CLIA [id number] [address] [address] [place] RBC (Bld) [#/Vol] 4.04 10*6/uL Normal 3.90-5.20 [facility] Comment on above: Order Comment: Speci men Type: BLOOD SPECIMEN Ordering Facility: [facility] Address: [address] [place] [phone] Performed By: #### 2 4323-8, 3, 1988-12 #### [facility] CLIA [id number] [address] [place] [address] [place] #### 29696-3 #### [facility] CLIA [id number] [address] [place] [address] [place] [facility] CLIA [id number] 7337 [facility] [address] [place] [address] [place] #### 56292-1 #### [facility] CLIA [id number] [address] [place] [address] [place] WBC (Bld) [#/Vol] 16.08 10*3/uL High 3.70-11.00 [facility] Comment on above: Order Comment: Speci men Type: BLOOD SPECIMEN Ordering Facility: [facility] Address: [address] [place] [phone] Performed By: #### 2 4323-8, 3015-12, 1988-12 #### [facility] CLIA [id number] [address] [place] [address] [place] #### 68616-3 #### [facility] CLIA [id number] [address] [place] [address] [place] [facility] CLIA [id number] 7337 [facility] [address] [place] [address] [place] #### 23110-2 #### [facility] CLIA [id number] [address] [place], [place] [address] [place] Cholesterol in LDL Direct as say [Mass/Vol]on 06-07-2024 Cholesterol in LDL [Mass/Vol] 31 mg/dL Normal <100 [facility] Comment on above: Order Comment: Speci men Type: BLOOD SPECIMEN Ordering Facility: [facility] Address: [address] [place] [phone] Result Comment: <100 mg/dL, Optimal 100-129 mg/dL, Near optimal/above optimal 130-159 mg/dL, Borderline high 160-189 mg/dL, High >189 mg/dL, Very high Secondary prevention optimal LDL Cholesterol levels are recommended to be < 70 mg/dL Performed By: #### 2 4323-8, 3015-12, 1988-12 #### [facility] CLIA [id number] [address] [place], [place] [address] [facility] [place] #### 19718-4 #### [facility] CLIA [id number] [address] [place], [place] [address] [place] [facility] CLIA [id number] [address]337 [facility] [address] [place] [address] [place] #### 70562-8 #### [facility] CLIA [id number] [address] [place] [address] [place] [facility] Comprehensive metabolic 2000 panelon 06-07-2024 Albumin [Mass/Vol] 3.6 g/dL Normal 3.2-5.0 [facility] Comment on above: Order Comment: Brenda garcia Type: BLOOD SPECIMEN Ordering Facility: [facility] Address: [address] [place] [phone] Performed By: #### 2 4323-8, 3015-12, 1988-12 #### [facility] CLIA [id number] [address] [place] [address] [place] #### 17001-7 #### [facility] CLIA [id number] [address] [place] [address] [place] [facility] CLIA [id number] [address] [facility] [address] [place] [address] [place] #### 37552-1 #### [facility] CLIA [id number] [address] [place], [place] [address] [place] ALP [Catalytic activity/Vol] 71 U/L Normal 45-117 [facility] Comment on above: Order Comment: Speci men Type: BLOOD SPECIMEN Ordering Facility: [facility] Address: [address] [place], [place] [address] Performed By: #### 2 4323-8, 3015-12, 1988-12 #### [facility] CLIA [id number] [address] [place] [address] [place] #### 92745-8 #### [facility] CLIA [id number] [address] [place] [address] [place] [facility] CLIA [id number] [address] [place] #### 70886-4 #### [facility] CLIA [id number] [address] [place], [place] [address] [place] ALT [Catalytic activity/Vol] 8 U/L Low 13-61 [facility] Comment on above: Order Comment: Speci men Type: BLOOD SPECIMEN Ordering Facility: [facility] Address: [address] [place], [place] [address] Result Comment: Resu lts may be falsely depressed after the administration of Sulfasalazine and/or Sulfapyridine. Performed By: #### 2 4323-8, 3015-12, 1988-12 #### [facility] CLIA [id number] [address] [place] [address] [place] #### 40063-8 #### [facility] CLIA [id number] [address] [place] [address] [place] [facility] CLIA [id number] [address] [facility] [place] [address] [place] [address] [place] #### 32172-3 #### [facility] CLIA [id number] [address] [place] [id number] [place] Anion gap [Moles/Vol] 7 mmol/L Normal 5-16 [facility] Comment on above: Order Comment: Speci men Type: BLOOD SPECIMEN Ordering Facility: [facility] Address: [address] [place] [phone] Performed By: #### 2 4323-8, 3015-12, 1988-12 #### [facility] CLIA [id number] [address] [place] [address] [place] #### 57556-3 #### [facility] CLIA [id number] [address] [place] [address] [place] [facility] CLIA [id number] 7337 [facility] [address] [place] #### 94194-7 #### [facility] CLIA [id number] [address] [place], [place] [address] [place] AST [Catalytic activity/Vol] 14 U/L Normal 8-34 [facility] Comment on above: Order Comment: Speci men Type: BLOOD SPECIMEN Ordering Facility: [facility] Address: [address] [place] [phone] Result Comment: Resu lts may be falsely depressed after the administration of Sulfasalazine and/or Sulfapyridine. Performed By: #### 2 4323-8, 3015-12, 1988-12 #### [facility] CLIA [id number] [address] [place] [address] [place] #### 53190-7 #### [facility] CLIA [id number] [address] [place] [address] [place] [facility] CLIA [id number] [address] [place] [address] [place] [address] [place] #### 59272-3 #### [facility] CLIA [id number] [address] [address] [place] Bilirubin [Mass/Vol] 0.4 mg/dL Normal 0.2-1.0 [facility] Comment on above: Order Comment: Speci men Type: BLOOD SPECIMEN Ordering Facility: [facility] Address: [address] [place] [phone] Performed By: #### 2 4323-8, 3016-3, 1988-12 #### [facility] CLIA [id number] [address] [place] [address] [place] #### 42725-2 #### [facility] CLIA [id number] [address] [place] [address] [place] [facility] CLIA [id number] [address] [place] [address] [place] #### 67923-0 #### [facility] CLIA [id number] [address] [place], [place] [address] [place] Calcium [Mass/Vol] 9.9 mg/dL Normal 8.5-10.5 [facility] Comment on above: Order Comment: Speci men Type: BLOOD SPECIMEN Ordering Facility: [facility] Address: [address] [place] [phone] Performed By: #### 2 4323-8, 3016-3, 1988-12 #### [facility] CLIA [id number] [address] [place] [address] [place] #### 08486-0 #### [facility] CLIA [id number] [address] [place] [address] [place] [facility] CLIA [id number] [address] [facility] [place] [address] [place] #### 93661-6 #### [facility] CLIA [id number] [address] [place] [address] [place] Chloride [Moles/Vol] 103 mmol/L Normal 98-107 [facility] Comment on above: Order Comment: Speci men Type: BLOOD SPECIMEN Ordering Facility: [facility] Address: [address] [place] [phone] Performed By: #### 2 4323-8, 3, 1988-12 #### [facility] CLIA [id number] [address] [place] [address] [place] #### 90226-2 #### [facility] CLIA [id number] [address] [place] [address] [place] [facility] CLIA [id number] [address] [place] #### 87171-0 #### [facility] CLIA [id number] [address] [place] [address] [place] CO2 [Moles/Vol] 27 mmol/L Normal 21-32 [facility] Comment on above: Order Comment: Speci men Type: BLOOD SPECIMEN Ordering Facility: [facility] Address: [address] [place], [place] [address] Performed By: #### 2 4323-8, 3015-12, 1988-12 #### [facility] CLIA [id number] [address] [place] [address] [place] #### 64159-8 #### [facility] CLIA [id number] [address] [place], [place] [address] [place] [facility] CLIA [id number] [address] [facility] [place] [address] [place] #### 67312-4 #### [facility] CLIA [id number] [address] [place] [address] [place] Creatinine [Mass/Vol] 0.94 mg/dL Normal 0.51-0.95 [facility] Comment on above: Order Comment: Brenda garcia Type: BLOOD SPECIMEN Ordering Facility: [facility] Address: [address] [place] [phone] Result Comment: Jenifer ents receiving either N-Acetylcysteine (NAC) or Metamizole prior to venipuncture, may have falsely depressed results. Performed By: #### 2 4323-8, 3015-12, 1988-12 #### [facility] CLIA [id number] [address] [place] [address] #### 86826-1 #### [facility] CLIA [id number] [address] [place], [place] [address] [place] [facility] CLIA [id number] [address] [place] #### [address]66-3 #### [facility] CLIA [id number] [facility] [address] OF [facility] Creatinine and Glomerular filtration rate.predicted panel (S/P/Bld) 63 mL/min/1.73m??? Normal >=60 [facility] Comment on above: Order Comment: Brenda garcia Type: BLOOD SPECIMEN Ordering Facility: [facility] Address: [address] [place] [id number] Result Comment: Gabriella mated Glomerular Filtration Rate [...] By: #### 2 4323-8, 3015-12, 1988-12 #### [facility] CLIA [id number] [address] [place] [address] [place] #### 25625-1 #### [facility] CLIA [id number] [address] [place] [address] [place] [facility] CLIA [id number] [address] [address] [place] #### 58918-5 #### [facility] CLIA [id number] [address] [facility] [place] [address] [place] Glucose [Mass/Vol] 161 mg/dL High 70-100 [facility] Comment on above: Order Comment: Speci men Type: BLOOD SPECIMEN Ordering Facility: [facility] Address: [address] [place] [address] [id number] Result Comment: The [place] Diabetes Association (ADA) provides guidance for cutoff [...] Standards of Medical Care in Diabetes 2016, [place] Diabetes Association. Diabetes Care. 2016.39(Suppl 1). Results may be falsely elevated after the administration of Sulfapyridine. Results may be falsely depressed after the administration of Sulfasalazine. Performed By: #### 2 4323-8, 3016-3, 1988- #### [facility] CLIA [id number] [address] [place] [address] [place] #### 26767-1 #### [facility] CLIA [id number] [address] [place] [address] [place] [facility] CLIA [id number] [address] [place] [address] [place] #### 03089-1 #### [facility] CLIA [id number] [address] [place] [address] [place] Potassium [Moles/Vol] 4.1 mmol/L Normal 3.5-5.1 [facility] Comment on above: Order Comment: Speci men Type: BLOOD SPECIMEN Ordering Facility: [facility] Address: [address] [place] [phone] Performed By: #### 2 4323-8, 3016-3, 1988-12 #### [facility] CLIA [id number] [address] [place] [address] [place] #### 67908-7 #### [facility] CLIA [id number] [address] [place] [address] [place] [facility] CLIA [id number] [address] [place] [address] [place] #### 80957-9 #### [facility] CLIA [id number] [address] [place] [address] [place] Protein [Mass/Vol] 6.5 g/dL Normal 6.0-8.5 [facility] Comment on above: Order Comment: Speci men Type: BLOOD SPECIMEN Ordering Facility: [facility] Address: [address] [place] [phone] Performed By: #### 2 4323-8, 3016-3, 1988-12 #### [facility] CLIA [id number] [address] [place] [address] [place] #### 43193-1 #### [facility] CLIA [id number] [address] [place], [place] [address] [place] [facility] CLIA [id number] [address] [place] [address] [place] #### 69609-4 #### [facility] CLIA [id number] [address] [place] [address] [place] Sodium [Moles/Vol] 137 mmol/L Normal 136-145 [facility] Comment on above: Order Comment: Speci men Type: BLOOD SPECIMEN Ordering Facility: [facility] Address: [address] [place], [place] [address] [place] [address] Performed By: #### 2 4323-8, 3, 1988-12 #### [facility] CLIA [id number] [address] [place] [address] [place] #### 85105-9 #### [facility] CLIA [id number] [address] [place] [address] [place] [facility] CLIA [id number] [address] [place] [address] [place] #### 62415-6 #### [facility] CLIA [id number] [address] [place] [address] [place] Urea nitrogen [Mass/Vol] 14 mg/dL Normal 7-26 [facility] Comment on above: Order Comment: Speci men Type: BLOOD SPECIMEN Ordering Facility: [facility] Address: [address] [place] [phone] Performed By: #### 2 4323-8, 3015-12, 1988-12 #### [facility] CLIA [id number] [address] [place] [address] [place] #### 86930-2 #### [facility] CLIA [id number] [address] [place] [address] [place] [facility] CLIA [id number] [address] [place] [address] [place] #### 87643-7 #### [facility] CLIA [id number] [address] [place] [address] [place] HbA1c (Bld)on 06-07-2024 Average glucose Estimated from glycated hemoglobin (Bld) [Mass/Vol] 151 mg/dL Normal [facility] Comment on above: Order Comment: Brenda garcai Type: BLOOD SPECIMEN Ordering Facility: [facility] Address: [address] [place], [place] [address] [address] Result Comment: eAG: (Estimated average glucose) is a calculated value from HgbA1c and is motor vehicle representative of the average blood glucose level in the last 2-3 month period. Performed By: #### 2 4323-8, 3015-12, 1988-12 #### [facility] CLIA [id number] [address] [place] [address] #### 05878-3 #### [facility] CLIA [id number] [address] [place], [place] [address] [facility] CLIA [id number] [address] [place] #### 53821-0 #### [facility] CLIA [id number] [address] [place] HbA1c (Bld) [Mass fraction] 6.9 % High 4.3-5.6 [facility] Comment on above: Order Comment: Brenda garcia Type: BLOOD SPECIMEN Ordering Facility: [facility] Address: [address] [place] [phone] Result Comment: Amer [place] Diabetes Association guidelines indicate that patients with HgbA1c in the range 5.7-6.4% are at increased risk for development of diabetes, and intervention by lifestyle modification may be beneficial. HgbA1c greater or equal to 6.5% is considered diagnostic of diabetes. Performed By: #### 2 4323-8, 3015-12, 1988-12 #### [facility] CLIA [id number] [address] [place], [place] [address] [place] #### 91408-8 #### [facility] CLIA [id number] [address] [place], [place] [address] [facility] CLIA [id number] [address] [place] [address] [place] #### 05925-1 #### [facility] CLIA [id number] [address] [place] [address] Lipid 1995 Pnl SerPlon 06-07 Cholesterol in VLDL [Mass/Vol] Normal [facility] Comment on above: Order Comment: Speci men Type: BLOOD SPECIMEN Ordering Facility: [facility] Address: [address] [place], [place] [address] [address] Result Comment: Unab le to calculate due to elevated Triglycerides. Unable to calculate due to increased Triglycerides. See LDL-Chol, Direct. Performed By: #### 2 4323-8, 3015-12, 1988-12 #### [facility] CLIA [id number] [address] [place] [address] OF [facility] #### 48084-1 #### [facility] CLIA [id number] [address] [place], [place] [address] [facility] CLIA [id number] [address] [place] #### 77165-1 #### [facility] CLIA [id number] [address] [place] [address] [place] Result Comment: Test not indicated. Lipid 1995 panelon 4 Cholesterol [Mass/Vol] 114 mg/dL Normal 0-199 [facility] Comment on above: Order Comment: Speci men Type: BLOOD SPECIMEN Ordering Facility: [facility] Address: [address] [place] [address] [place] [address] Result Comment: <200 mg/dL, Desirable 200-239 mg/dL, Borderline high >239 mg/dL, High Performed By: #### 2 4323-8, 3015-12, 1988-12 #### [facility] CLIA [id number] [address] [place], [place] [address] [facility] [place] #### 55824-5 #### [facility] CLIA [id number] [address] [place] [address] [place] [facility] CLIA [id number] [address] [address] [place] #### 71278-1 #### [facility] CLIA [id number] [address] [place] [id number] [place] Cholesterol in HDL [Mass/Vol] 28 mg/dL Low >40 [facility] Comment on above: Order Comment: Speci men Type: BLOOD SPECIMEN Ordering Facility: [facility] Address: [address] [place] [phone] Result Comment: 40-5 9 mg/dL, Acceptable >59 mg/dL, High: Negative risk factor for coronary heart disease <40 mg/dL, Low: Positive risk factor for coronary heart disease Performed By: #### 2 4323-8, 3016-3, 1988-12 #### [facility] CLIA [id number] [address] [place] [address] [place] #### 81149-3 #### [facility] CLIA [id number] [address] [place] [address] [place] [facility] CLIA [id number] [address] [place] [address] [place] #### 48928-3 #### [facility] CLIA [id number] [facility] [place] [id number] [place] Cholesterol in LDL [Mass/Vol] Normal [facility] Comment on above: Order Comment: Speci men Type: BLOOD SPECIMEN Ordering Facility: [facility] Address: [address] [place] [phone] Result Comment: Unab le to calculate due to elevated Triglycerides. Unable to calculate due to increased Triglycerides. See LDL-Chol, Direct. Performed By: #### 2 4323-8, 3016-3, 1988-12 #### [facility] CLIA [id number] [address] [place] [address] [place] #### 40243-7 #### [facility] CLIA [id number] [address] [place] [address] [place] [facility] CLIA [id number] [address] [facility] [address] [place] [address] [place] #### 60170-3 #### [facility] CLIA [id number] [address] [facility] [address] [place] Cholesterol in LDL/Cholesterol in HDL [Mass ratio] Normal [facility] Comment on above: Order Comment: Speci men Type: BLOOD SPECIMEN Ordering Facility: [facility] Address: [address] [place] [phone] Result Comment: Unab le to calculate due to elevated Triglycerides. Reference: 1. National Cholesterol Education Program ATP III Guideline At-A-Glance Quick Desk Reference: National Heart, Lung, and Blood [place]. National Institutes of Health. 2001: NIH Publication No. 01-3305. 2. An International Atherosclerosis Society position paper: global recommendations for the management of dyslipidemia: executive summary, Atherosclerosis. 2014: 232(2):410-413. Performed By: #### 2 4323-8, 3015-12, 1988-12 #### [facility] CLIA [id number] [address] [place] [address] [place] #### 84578-0 #### [facility] CLIA [id number] [address] [place] [address] [place] [facility] CLIA [id number] [address] [facility] [address] [place] [address] [place] #### 09736-5 #### [facility] CLIA [id number] 9500 [facility] [address] [address] [place] Cholesterol non HDL [Mass/Vol] 86 mg/dL Normal <130 [facility] Comment on above: Order Comment: Brenda garcia Type: BLOOD SPECIMEN Ordering Facility: [facility] Address: [address] [place], [place] [address] [place] [address] Result Comment: <130 mg/dL, Optimal 130-159 mg/dL, Near optimal/above optimal 160-189 mg/dL, Borderline high 190-219 mg/dL, High >219 mg/dL, Very high Secondary prevention optimal non HDL Cholesterol levels are recommended to be <100 mg/dL Performed By: #### 2 4323-8, 3015-12, 1988-12 #### [facility] CLIA [id number] [address] [place] [address] [place] [facility] OF [place] #### 04158-9 #### [facility] CLIA [id number] [address] [place] [address] [place] [facility] CLIA [id number] [address] [place] [address] [place] #### 17510-9 #### [facility] CLIA [id number] [address] [place] [address] [place] Cholesterol.total/Choles terol in HDL [Mass ratio] 4.07 {ratio} Normal <5.10 [facility] Comment on above: Order Comment: Brenda garcia Type: BLOOD SPECIMEN Ordering Facility: [facility] Address: [address] [place], [place] [address] [place] [address] Performed By: #### 2 4323-8, 3015-12, 1988-12 #### [facility] CLIA [id number] [address] [place] [address] [place] [facility] OF [place] #### 45518-3 #### [facility] CLIA [id number] [address] [place] [address] [place] [facility] CLIA [id number] [address] [place] [address] [place] #### 04187-5 #### [facility] CLIA [id number] [address] [address] [place] FASTING TIME [address] [facility] Comment on above: Order Comment: Speci men Type: BLOOD SPECIMEN Ordering Facility: [facility] Address: [address] [place] [phone] Performed By: #### 2 4323-8, 3015-12, 1988-12 #### [facility] CLIA [id number] [address] [place] [address] [place] #### 32763-1 #### [facility] CLIA [id number] [address] [place] [address] [place] [facility] CLIA [id number] 7337 [facility] [address] [place] #### 59262-7 #### [facility] CLIA [id number] [address] [address] [place] Triglyceride [Mass/Vol] 550 mg/dL High 30-149 M [facility] Comment on above: Order Comment: Speci men Type: BLOOD SPECIMEN Ordering Facility: [facility] Address: [address] [place] [phone] Result Comment: <150 mg/dL, Normal 150-199 mg/dL, Borderline high 200-499 mg/dL, High >499 mg/dL, Very high Patients receiving either N-Acetylcysteine (NAC) or Metamizole prior to venipuncture, may have falsely depressed results. Performed By: #### 2 4323-8, 3015-12, 1988-12 #### [facility] CLIA [id number] [address] [place] [address] [place] #### 42747-0 #### [facility] CLIA [id number] [address] [place] [address] [place] [facility] CLIA [id number] [address] #### 49079-3 #### [facility] CLIA [id number] [address] [place] [address] [place] TSH SerPl-aCncon 06-07-2024 TSH Qn 4.628 m[IU]/L High 0.358-3.[address] [facility] Comment on above: Order Comment: Speci men Type: BLOOD SPECIMEN Ordering Facility: [facility] [employer] [facility] Address: [address] [place] [address] [place] [address] Result Comment: 3rd generation ultra sensitive TSH. Performed By: #### 2 4323-8, 3016-3, 1988-12 #### [facility] CLIA [id number] [address] [place] [address] #### 23629-7 #### [facility] CLIA [id number] [address] [place] [address] STATES OF [facility] CLIA [id number] [address] [place] #### 74721-7 #### [facility] CLIA [id number] [address] [place] [address] OF [place] CNTHERAPYon 03-21-2024 CNTHERAPY OT/PT/Speech Visit ([facility]) -- PENNY MCKEON ([id number]) 1945 F Date Time Provider Department 03/21/24 10:30 AM TOMAS DUARTE [facility] Date Time Provider Department Center 03/21/2024 10:30 AM [id number], DEBRA A [facility] N Reason for Visit: Physical Therapy [...] in the left ear twice daily. 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 Author Type: Smoke Eater Type: Therapy (PT/OT/Speech/Resp) Filed: 03/21/2024 10:56 Note Text: Program_ID:[id number] Access Code: [email or web address] URL: [email or web address]://[facility] [employer]/ Date: 03-21-2024 Prepared By: TOMAS DUARTE Program [...] - 1 sets - [address] [facility] CNTHERAPYon 03-19-2024 CNTHERAPY OT/PT/Speech Visit ([facility]) -- PENNY MCKEON ([id number]) 1945 F Date Time Provider Department 03/19/24 2:15 PM CANDACE LARRYPosto7ROSS Date Time Provider Department Center 03/19/2024 2:15 PM [id number], YEVG*[facility] N Reason for Visit: PT [...] in the left ear twice daily. -- [facility] CNTHERAPYon 03-16-2024 CNTHERAPY OT/PT/Speech Visit ([facility]) -- PENNY MCKEON ([id number]) 1945 F Date Time Provider Department 03/16/24 2:15 PM JACQUELYN ODONNELL Date Time Provider Department Center 03/16/2024 2:15 PM [id number], MIRANDA [facility] N Reason for Visit: Physical Therapy [503] [...] in the left ear twice daily. -- [facility] [id number] 03-12-2024 [id number] O ID: [id number] Author: BLAZE ALEJANDRO PT, DPT Service: ? Author Type: Physical Therapist Type: [id number] Filed: 03/12/2024 16:46 Note Text: [facility] Physical Therapy Plan of Care Certification Patient Name: Penny Mckeon : 1945 [facility] #: [id number] Date: 01/19/2024 To: Jena Avila MD From Therapist: Blaze Alejandro PT, DPT RE: Patient Certification/ Recertification Your review, approval and electronic signature are required in order to comply with Payor: [facility] MEDICARE / Plan: [facility] MEDICARE ADVANTAGE PPO / Product Type: PPO [...] standing duration for functional mobility and activities. Jenkins in home exercise program. Patient will decrease [...] Planned: 8 Planned Treatment Interventions: Aquatic PT (78041), Therapeutic exercise (17249) PLAN FOR NEXT VISIT: Exercises for hip [...] reviewed the treatment plan for Penny Mckeon, [facility]# [id number] for the period of 01/19/24 -- 04/17/24, established on 01/19/2024. Signature certifies the need for therapy services. [facility] CNTHERAPYon 02-23-2024 CNTHERAPY OT/PT/Speech Visit ([facility]) -- PENNY MCKEON ([id number]) 1945 F Date Time Provider Department 02/23/24 10:45 AM BLAZE ALEJANDRO [facility] Date Time Provider Department Center 02/23/2024 10:45 AM [id number], CONNOR [facility] N Reason for Visit: PT Discharge [752] [...] left ear twice daily. -- Letter Text [facility] CNTHERAPYon 02-08-2024 CNTHERAPY OT/PT/Speech Visit ([facility]) -- PENNY [id number]) 1945 F Date Time Provider Department 02/08/24 10:30 AM TOMAS DUARTE BRODIE Date Time Provider Department [place] 02/08/2024 10:30 AM [id number], DEBRA A [facility] N Reason for Visit: Physical Therapy [...] in the left ear twice daily. -- [facility] CNTHERAPYon 02-06-2024 CNTHERAPY OT/PT/Speech Visit ([facility]) -- PENNY MCKEON ([id number]) 1945 F Date Time Provider Department 02/06/24 10:[address] [facility] Date Time Provider Department Center 02/06/2024 10:30 AM [id number], DEBRA A [facility] N Reason for Visit: Physical [...] in the left ear twice daily. -- [facility] CNTHERAPYon 02-01-2024 CNTHERAPY OT/PT/Speech Visit ([facility]) -- PENNY MCKEON ([id number]) 1945 F Date Time Provider Department 02/01/24 10:30 AM TOMAS DUARTE Date Time Provider Department Center 02/01/2024 10:30 AM [id number], DEBRA A [facility] N Reason for Visit: Physical Therapy [...] in the left ear twice daily. -- [facility] CNTHERAPYon 01-30-2024 CNTHERAPY OT/PT/Speech Visit ([facility]) -- PENNY MCKEON ([id number]) 1945 F Date Time Provider Department 01/30/24 8:00 AM [facility] Provider Department [place] 01/30/2024 8:00 AM [id number], DEBRA A [facility] N Reason for Visit: Physical Therapy [...] in the left ear twice daily. -- [facility] CNTHERAPYon 01-25-2024 CNTHERAPY OT/PT/Speech Visit ([facility]) -- PENNY MCKEON ([id number]) 1945 F Date Time Provider Department 01/25/24 9:30 AM TOMAS DUARTE Date Time Provider Department Center 01/25/2024 9:30 AM [id number], DEBRA A [facility] N Reason for Visit: Physical Therapy [503] [...] in the left ear twice daily. -- [facility] CNTHERAPYon 01-23-2024 CNTHERAPY OT/PT/Speech Visit ([facility]) -- PENNY MCKEON ([id number]) 1945 F Date Time Provider Department 01/23/24 11:30 AM TOMAS DUARTE Date Time Provider Department [place] 01/23/2024 11:30 AM [id number], DEBRA [facility] Reason for Visit: Physical Therapy [503] [...] the left ear twice daily. -- Normal [facility] CNTHERAPYon 01-19-2024 CNTHERAPY OT/PT/Speech Visit ([facility]) -- PENNY MCKEON ([id number]) 1945 F Date Time Provider Department 01/19/24 7:45 AM BLAZE ALEJANDRO [facility] Date Time Provider Department Center 01/19/2024 7:45 AM [id number], CONNOR [facility] N Reason for Visit: PT Eval [747] [...] daily. -- Letter Text Letter Text Normal [facility] Elbow min 3 Viewson 01-12-20 Elbow min 3 Views [facility] Imaging Services [address] [place] [address] Elbow min 3 Views MR#: [id number] Acct: [id number] Name: PENNY MCKEON Rep #: [id number] : 1945 F 78 From: Jhonatan Mendoza MD PCP: Dr. Laura Bowden, DO Status: DEP ER Study: Elbow min 3 Views Date of Exam: 01/12/24 Exam# [id number] Ordering Dr: Dandy Bueno MD [id number] STUDY: X-RAY - RIGHT ELBOW REASON FOR [...] Laura Bowden DO; Dr. Dandy Bueno MD Head Teller: Signed Normal [facility] Emergency Department Summary on 01-12-2024 Emergency Department Summary [facility] Medical Records Department [address] [place] [address] Emergency Department Summary 01/12/24 MR#: [id number] Acct: [id number] Name: PENNY MCKEON Rep #: [id number] : 1945 78 From: Dandy Bueno MD [...] on exertio (more content not included)... Normal [facility] Shoulder min 2 Viewson 01-11 Shoulder min 2 Views [facility] Imaging Services [address] [place] [address] Shoulder min 2 Views MR#: [id number] Acct: [id number] Name: PENNY MCKEON Rep #: [id number] : 1945 F 78 From: Jhonatan Mendoza MD PCP: Dr. Laura Bowden, DO Status: DEP ER Study: Shoulder min 2 Views Date of Exam: 01/12/24 Exam# [id number] Ordering Dr: Dandy Bueno MD [id number] STUDY: X-RAY - RIGHT SHOULDER REASON FOR [...] 20:15 EDT Reading Location ID and State: [address] [place] [address] Tel , Service support , CC: Dr. Laura Bowden DO; Dr. Dandy Bueno MD Head Teller: Signed Normal [facility] Wrist min 3 Viewson 01-12-20 Wrist min 3 [facility] [address] [place] [address] Wrist min 3 Views MR#: [id number] Acct: [id number] Name: PENNY MCKEON Rep #: [id number] : 1945 F 78 From: Jhonatan Mendoza MD PCP: Dr. Laura Bowden DO Status: DEP ER Study: Wrist min 3 Views Date of Exam: 01/12/24 Exam# [id number] Ordering Dr: Dandy Bueno MD [id number] STUDY: X-RAY - RIGHT WRIST REASON FOR [...] Laura Bowden DO; Dr. Dandy Bueno MD Head Teller: Signed Normal [facility] Hepatobilliary Imagingon Hepatobilliary Imaging [facility] Imaging Services [address] [place] [address] Hepatobilliary Imaging MR#: [id number] Acct: [id number] Name: PENNY MCKEON Rep #: [id number] : 1945 F 78 From: Teo Waterman PCP: Dr. Laura Bowden DO Status: [facility] Study: Hepatobilliary Imaging Date of Exam: 10/28/23 Exam# [id number] Ordering Dr: Brandie Jose P A-C [id number] CLINICAL: 78-year-old female with history of recent [...] CC: KHAI Jose; Dr. Laura Bowden DO Head Teller: Signed Normal [facility] Surgery Visit Reporton 10-28 Surgery Visit Report [facility] [address] [place] [address]. [address] [place] [address] OFFICE VISIT Date of Service: 10/28/23 MR#: [id number] Acct: [id number] Name: PENNY MCKEON Rep #: [id number] : 1945 Provider: Dr. Caden little MD Age/Sex: 78/F Location: [facility] Status: Signed Intake Vital Signs 10/18/23 14:28 Height 5 ft 4 in Intake Visit Reasons: GALLBLADDER 1-16 Chief Complaint: ABBIE drain issues Simulation Specialist Required: No Accompanied by: Daughter Is patient [...] Post Op Diagnoses S/P laparoscopic cholecystectomy Z90.49 [facility] Medical History (Updated 10/27/23 @ 00:14 by [...] serous output???s (more content not included)... Normal [facility] Surgery Visit Reporton 10-25 Surgery Visit Report [facility] [address] [place] [address]. [address] [place] [address] OFFICE VISIT Date of Service: 10/25/23 MR#: [id number] Acct: [id number] Name: PENNY MCKEON Leona Rep #: [id number] : 1945 Provider: KHAI de guzman Age/Sex: 78/F Location: [facility] Status: Signed Intake Vital Signs 10/18/23 14:28 Height 5 ft 4 in Intake Visit Reasons: INFECTED TUBE Chief Complaint: ABBIE drain issues Is patient in pain?: No [...] cc of fluid currently within the bulb. ABBEI drain remains Recommend a HIDA scan to evaluate for possible bile leak If bile leak is noted, patient will need a referral to (more content not included)... Normal [facility] AFP, Tumor Markeron 10-19-19 AFP TUMOR EWA < 1.8 Normal 0.0-9.2 [facility] Comment on above: Result Comment: [employer] Electrochemiluminescence Immunoassay (ECLIA) Values obtained with different assay methods or kits cannot be used interchangeably. Results cannot be interpreted as absolute evidence of the presence or absence of malignant disease. This test is not interpretable in females. Performed By: #### L 3300.0700, L3410.2350, L3400.3800, L503.6030, L800.1280, L100.9950, L3100.3425, L803.2200, L3900.2100, L3000.0375, L503.6550, L3100.5440, L3100.5850 ####[facility] [address] [place], [address] GILMA Comprehensive Panelon GILMA TABLE Comment Normal . [facility] Comment on above: Result Comment: Auto antibody [...] Sm (anti-Lawrence) SLE 15 - 30% --------- FLYING SQUAD [employer]ER Mixed Connective Tissue Disease 95% (U1 nRNP, SLE 30 - 50% anti-ribonucleoprotein) Polymyositis and/or Dermatomyositis 20% --------- Scl-70 (antiDNA Scleroderma (diffuse) 20 - 35% topoisomerase) Crest 13% --------- Janette-1 Polymyositis and/or Dermatomyositis 20 - 40% --------- Centromere B Scleroderma - Crest variant 80% Performed By: #### L 3300.0700, L3410.2350, L3400.3800, L503.6030, L800.1280, L100.9950, L3100.3425, L803.2200, L3900.2100, L3000.0375, L503.6550, L3100.5440, L3100.5850 #### [facility] [address] [place], [address] ANTI-CENT B AB <0.2 Normal 0.0-0.9 [facility] Comment on above: Performed By: #### L 3300.0700, L3410.2350, L3400.3800, L503.6030, L800.1280, L100.9950, L3100.3425, L803.2200, L3900.2100, L3000.0375, L503.6550, L3100.5440, L3100.5850 #### [facility] [address] [place], [address] ANTI-DNA (DS)AB <1 Normal 0-9 [facility] Comment on above: Result Comment: Nega tive <5 Equivocal 5 - 9 Positive >9 Performed By: #### L 3300.0700, L3410.2350, L3400.3800, L503.6030, L800.1280, L100.9950, L3100.3425, L803.2200, L3900.2100, L3000.0375, L503.6550, L3100.5440, L3100.5850 #### [facility] [address] [place], [address] ANTI-JANETTE-1 <0.2 Normal 0.0-0.9 [facility] Comment on above: Performed By: #### L 3300.0700, L3410.2350, L3400.3800, L503.6030, L800.1280, L100.9950, L3100.3425, L803.2200, L3900.2100, L3000.0375, L503.6550, L3100.5440, L3100.5850 #### [facility] [address] [place], [address] ANTI-SS-A < 0.2 Normal 0.0-0.9 [facility] Comment on above: Performed By: #### L 3300.0700, L3410.2350, L3400.3800, L503.6030, L800.1280, L100.9950, L3100.3425, L803.2200, L3900.2100, L3000.0375, L503.6550, L3100.5440, L3100.5850 #### [facility] [address] [place], [address] Anti-SS-B < 0.2 Normal 0.0-0.9 [facility] Comment on above: Performed By: #### L 3300.0700, L3410.2350, L3400.3800, L503.6030, L800.1280, L100.9950, L3100.3425, L803.2200, L3900.2100, L3000.0375, L503.6550, L3100.5440, L3100.5850 #### [facility] [address] [place], [address] ANTICHROMATIN <0.2 Normal 0.0-0.9 [facility] Comment on above: Performed By: #### L 3300.0700, L3410.2350, L3400.3800, L503.6030, L800.1280, L100.9950, L3100.3425, L803.2200, L3900.2100, L3000.0375, L503.6550, L3100.5440, L3100.5850 #### [facility] [address] [place], [place], [id number] ANTISCLERODERM <0.2 Normal 0.0-0.9 [facility] Comment on above: Performed By: #### L 3300.0700, L3410.2350, L3400.3800, L503.6030, L800.1280, L100.9950, L3100.3425, L803.2200, L3900.2100, L3000.0375, L503.6550, L3100.5440, L3100.5850 #### [facility] [address] [place], [place], [id number] FLYING SQU[employer]ER Ab <0.2 Normal 0.0-0.9 [facility] Comment on above: Performed By: #### L 3300.0700, L3410.2350, L3400.3800, L503.6030, L800.1280, L100.9950, L3100.3425, L803.2200, L3900.2100, L3000.0375, L503.6550, L3100.5440, L3100.5850 #### [facility] [address] [place], [place], [id number] LAWRENCE Ab <0.2 Normal 0.0-0.9 [facility] Comment on above: Performed By: #### L 3300.0700, L3410.2350, L3400.3800, L503.6030, L800.1280, L100.9950, L3100.3425, L803.2200, L3900.2100, L3000.0375, L503.6550, L3100.5440, L3100.5850 #### [facility] [address] [place], [address] Absolute lymphocyte countOrd ered By: Tirso Friend on 10-19-2023 Lymphocytes Auto (Unsp spec) [#/Vol] 1.17 10*3/uL 0.83-4.51 [facility] Alpha Antitrypsin Serumon ALPHA1 ANTITRYP 206 mg/dL Abnormal 101-187 [facility] Comment on above: Result Comment: Perf ormed at: [facility] [address] [id number] Community Outreach Coordinator: Brijesh Posadas PhD, Phone: [phone] Performed By: #### L 3300.0700, L3410.2350, L3400.3800, L503.6030, L800.1280, L100.9950, L3100.3425, L803.2200, L3900.2100, L3000.0375, L503.6550, L3100.5440, L3100.5850 #### [facility] [address] [place], [address] Anti-Mitochondrial ABon 10-03 ANTIMITOCHON AB <20.0 Normal 0.0-20.0 [facility] Comment on above: Result Comment: Nega tive 0.0 - 20.0 Equivocal 20.1 - 24.9 Positive >24.9 Mitochondrial (M2) Antibodies are found in 90-96% of patients with primary biliary cirrhosis. Performed By: #### L 3300.0700, L3410.2350, L3400.3800, L503.6030, L800.1280, L100.9950, L3100.3425, L803.2200, L3900.2100, L3000.0375, L503.6550, L3100.5440, L3100.5850 #### [facility] [address] [place], [address] Anti-Smooth Muscle ABSon ANTISMOOTH MUSC 2 Units Normal 0-19 [facility] Comment on above: Result Comment: Nega tive 0 - 19 Weak positive 20 - 30 Moderate to strong positive >30 Actin Antibodies are found in 52-85% of patients with autoimmune hepatitis or chronic active hepatitis and in 22% of patients with primary biliary cirrhosis. Performed By: #### L 3300.0700, L3410.2350, L3400.3800, L503.6030, L800.1280, L100.9950, L3100.3425, L803.2200, L3900.2100, L3000.0375, L503.6550, L3100.5440, L3100.5850 #### [facility] [address] [place], [address] Automated lymphocyte count a s percentage of total leukocytesOrdered By: Tirso Friend on 10-19-2023 Lymphocytes/100 WBC Auto (Unsp spec) 7.8 % 19-41 [facility] Basophil percentageOrdered B y: Tirso Friend on 10-19-2023 Bilirubin [Mass/Vol] 4.90 mg/dL 0.20-1.00 [facility] Comment on above: For patients on eltr ombopag therapy, use of Dimension [place] TBIL is not recommended. Chloride [Moles/Vol] 108 mmol/L 98-107 [facility] Glucose [Mass/Vol] 178 mg/dL 74-106 [facility] Comment on above: Fasting Glucose resu lt greater than or equal to 126 mg/dL suggests DIABETES MELLITUS per A.D.A. criteria. Potassium [Moles/Vol] 3.9 mmol/L 3.5-5.1 [facility] Comment on above: Slight Hemolysis, Re sult may be falsely increased. Protein [Mass/Vol] 6.5 g/dL 6.4-8.2 [facility] Sodium [Moles/Vol] 132 mmol/L 136-145 [facility] Basophils/100 WBC (Bld) 0.2 % 0-1 [facility] Eosinophils/100 WBC (Bld) 0.0 % 0-5 [facility] Hemoglobin (Bld) [Mass/Vol] 11.1 g/dL 12.0-15.0 [facility] Monocytes/100 WBC (Bld) 5.2 % 0-10 [facility] Neutrophils (Bld) [#/Vol] 12.9 10*3/uL 2.0-7.7 [facility] Neutrophils/100 WBC (Bld) 85.5 % 47-70 [facility] WBC (Bld) [#/Vol] 15.1 10*3/uL 4.4-11.0 [place] [facility] Glucoseon 10-19-2023 FINGERSTICK GLU 262 mg/dL High 74-106 [facility] Comment on above: Result Comment: JORDAN GEMENT OF PATIENT CARE PER NURSING PROTOCOL Performed By: #### L 3300.0700, L3410.2350, L3400.3800, L503.6030, L800.1280, L100.9950, L3100.3425, L803.2200, L3900.2100, L3000.0375, L503.6550, L3100.5440, L3100.5850 #### [facility] [address] [place], [place], [id number] FINGERSTICK GLU 179 mg/dL High 74-106 [facility] Comment on above: Result Comment: JORDAN GEMENT OF PATIENT CARE PER NURSING PROTOCOL Performed By: #### L 501.080 ####[facility] [address] [place], [place], [id number] CBC W/Diff, Automatedon 10-03 Absolute Lymph 1.17 X10 3/uL Normal 0.83-4.51 [facility] Comment on above: Performed By: #### L 3300.0700, L3410.2350, L3400.3800, L503.6030, L800.1280, L100.9950, L3100.3425, L803.2200, L3900.2100, L3000.0375, L503.6550, L3100.5440, L3100.5850 #### [facility] [address] [place], [address] Absolute Neut 12.9 X10 3/uL High 2.0-7.7 [facility] Comment on above: Performed By: #### L 3300.0700, L3410.2350, L3400.3800, L503.6030, L800.1280, L100.9950, L3100.3425, L803.2200, L3900.2100, L3000.0375, L503.6550, L3100.5440, L3100.5850 #### [facility] [address] [place], [address] Basophils/100 WBC (Bld) 0.2 % Normal 0-1 [facility] Comment on above: Performed By: #### L 3300.0700, L3410.2350, L3400.3800, L503.6030, L800.1280, L100.9950, L3100.3425, L803.2200, L3900.2100, L3000.0375, L503.6550, L3100.5440, L3100.5850 #### [facility] [address] [place], [address] Eosinophils/100 WBC (Bld) 0.0 % Normal 0-5 [facility] Comment on above: Performed By: #### L 3300.0700, L3410.2350, L3400.3800, L503.6030, L800.1280, L100.9950, L3100.3425, L803.2200, L3900.2100, L3000.0375, L503.6550, L3100.5440, L3100.5850 #### [facility] [address] [place], [address] Erythrocyte distribution width (RBC) [Ratio] 15.9 % High 11.6-14.6 [facility] Comment on above: Performed By: #### L 3300.0700, L3410.2350, L3400.3800, L503.6030, L800.1280, L100.9950, L3100.3425, L803.2200, L3900.2100, L3000.0375, L503.6550, L3100.5440, L3100.5850 #### [facility] [address] [place], [place], [address] Hematocrit (Bld) [Volume fraction] 33.3 % Low 37-47 [facility] Comment on above: Performed By: #### L 3300.0700, L3410.2350, L3400.3800, L503.6030, L800.1280, L100.9950, L3100.3425, L803.2200, L3900.2100, L3000.0375, L503.6550, L3100.5440, L3100.5850 #### [facility] [address] [place], [address] Hemoglobin (Bld) [Mass/Vol] 11.1 g/dL Low 12.0-15.0 [facility] Comment on above: Performed By: #### L 3300.0700, L3410.2350, L3400.3800, L503.6030, L800.1280, L100.9950, L3100.3425, L803.2200, L3900.2100, L3000.0375, L503.6550, L3100.5440, L3100.5850 #### [facility] [address] [place], [address] IG% 1.300 High 0.0-0.9 [facility] Comment on above: Result Comment: IG% - Immature Granulocytes (promyelocytes, myelocytes and metamyelocytes) > 1% indicates that a LEFT SHIFT is Present. Performed By: #### L 3300.0700, L3410.2350, L3400.3800, L503.6030, L800.1280, L100.9950, L3100.3425, L803.2200, L3900.2100, L3000.0375, L503.6550, L3100.5440, L3100.5850 #### [facility] [address] [place], [address] Lymphocytes/100 WBC (Bld) 7.8 % Low 19-41 [facility] Comment on above: Performed By: #### L 3300.0700, L3410.2350, L3400.3800, L503.6030, L800.1280, L100.9950, L3100.3425, L803.2200, L3900.2100, L3000.0375, L503.6550, L3100.5440, L3100.5850 #### [facility] [address] [place], [address] MCH (RBC) [Entitic mass] 31.5 pg Normal 27.0-32.0 [facility] Comment on above: Performed By: #### L 3300.0700, L3410.2350, L3400.3800, L503.6030, L800.1280, L100.9950, L3100.3425, L803.2200, L3900.2100, L3000.0375, L503.6550, L3100.5440, L3100.5850 #### [facility] [address] [place], [address] MCHC (RBC) [Mass/Vol] 33.3 g/dL Normal 32-36 [facility] Comment on above: Performed By: #### L 3300.0700, L3410.2350, L3400.3800, L503.6030, L800.1280, L100.9950, L3100.3425, L803.2200, L3900.2100, L3000.0375, L503.6550, L3100.5440, L3100.5850 #### [facility] [address] [place], [address] MCV (RBC) [Entitic vol] 94.6 fL Normal 81-99 [facility] Comment on above: Performed By: #### L 3300.0700, L3410.2350, L3400.3800, L503.6030, L800.1280, L100.9950, L3100.3425, L803.2200, L3900.2100, L3000.0375, L503.6550, L3100.5440, L3100.5850 #### [facility] [address] [place], [address] Monocytes/100 WBC (Bld) 5.2 % Normal 0-10 [facility] Comment on above: Performed By: #### L 3300.0700, L3410.2350, L3400.3800, L503.6030, L800.1280, L100.9950, L3100.3425, L803.2200, L3900.2100, L3000.0375, L503.6550, L3100.5440, L3100.5850 #### [facility] [address] [place], [address] Neutrophils/100 WBC (Bld) 85.5 % High 47-70 [facility] Comment on above: Performed By: #### L 3300.0700, L3410.2350, L3400.3800, L503.6030, L800.1280, L100.9950, L3100.3425, L803.2200, L3900.2100, L3000.0375, L503.6550, L3100.5440, L3100.5850 #### [facility] [address] [place], [address] Nucleated RBC (Bld) [#/Vol] 0 10*3/uL Normal 0-5 [facility] Comment on above: Performed By: #### L 3300.0700, L3410.2350, L3400.3800, L503.6030, L800.1280, L100.9950, L3100.3425, L803.2200, L3900.2100, L3000.0375, L503.6550, L3100.5440, L3100.5850 #### [facility] [address] [place], [address] Platelet mean volume (Bld) [Entitic vol] 11.2 fL Normal 6.2-12.0 [facility] Comment on above: Performed By: #### L 3300.0700, L3410.2350, L3400.3800, L503.6030, L800.1280, L100.9950, L3100.3425, L803.2200, L3900.2100, L3000.0375, L503.6550, L3100.5440, L3100.5850 #### [facility] [address] [place], [address] Platelets (Bld) [#/Vol] 191 10*3/uL Normal 150-450 [facility] Comment on above: Performed By: #### L 3300.0700, L3410.2350, L3400.3800, L503.6030, L800.1280, L100.9950, L3100.3425, L803.2200, L3900.2100, L3000.0375, L503.6550, L3100.5440, L3100.5850 #### [facility] [address] [place], [address] RBC (Bld) [#/Vol] 3.52 10*6/uL Low 4.2-5.4 [facility] Comment on above: Performed By: #### L 3300.0700, L3410.2350, L3400.3800, L503.6030, L800.1280, L100.9950, L3100.3425, L803.2200, L3900.2100, L3000.0375, L503.6550, L3100.5440, L3100.5850 #### [facility] [address] [place], [place], [address] RDW SD 54.3 fl High 35.1-43.9 [facility] Comment on above: Performed By: #### L 3300.0700, L3410.2350, L3400.3800, L503.6030, L800.1280, L100.9950, L3100.3425, L803.2200, L3900.2100, L3000.0375, L503.6550, L3100.5440, L3100.5850 #### [facility] [address] [place], [address] WBC (Bld) [#/Vol] 15.1 10*3/uL High 4.4-11.0 [facility] Comment on above: Performed By: #### L 3300.0700, L3410.2350, L3400.3800, L503.6030, L800.1280, L100.9950, L3100.3425, L803.2200, L3900.2100, L3000.0375, L503.6550, L3100.5440, L3100.5850 #### [facility] [address] [place], [address] Celiac AB,Comprehensiveon ANTIGLIADIN IGA 5 units Normal 0-19 [facility] Comment on above: Result Comment: Nega tive 0 - 19 Weak Positive 20 - 30 Moderate to Strong Positive >30 Performed By: #### L 3300.0700, L3410.2350, L3400.3800, L503.6030, L800.1280, L100.9950, L3100.3425, L803.2200, L3900.2100, L3000.0375, L503.6550, L3100.5440, L3100.5850 ####[facility] [address] [place], [address] ANTIGLIADIN IGG 2 units Normal 0-19 [facility] Comment on above: Result Comment: Nega tive 0 - 19 Weak Positive 20 - 30 Moderate to Strong Positive >30 Performed By: #### L 3300.0700, L3410.2350, L3400.3800, L503.6030, L800.1280, L100.9950, L3100.3425, L803.2200, L3900.2100, L3000.0375, L503.6550, L3100.5440, L3100.5850 ####[facility] [address] [place], [address] ENDOMYSIAL IGA Negative Normal Negative [facility] Comment on above: Result Comment: Note : Specimen is icteric. Performed By: #### L 3300.0700, L3410.2350, L3400.3800, L503.6030, L800.1280, L100.9950, L3100.3425, L803.2200, L3900.2100, L3000.0375, L503.6550, L3100.5440, L3100.5850 ####[facility] [address] [place], [address] tTG IGA <2 Normal 0-3 [facility] Comment on above: Result Comment: Nega tive 0 - 3 Weak Positive 4 - 10 Positive >10 Tissue Transglutaminase (tTG) has been identified as the endomysial antigen. Studies have demonstr- ated that endomysial IgA antibodies have over 99% specificity for gluten sensitive enteropathy. Performed By: #### L 3300.0700, L3410.2350, L3400.3800, L503.6030, L800.1280, L100.9950, L3100.3425, L803.2200, L3900.2100, L3000.0375, L503.6550, L3100.5440, L3100.5850 ####[facility] [address] [place], [address] tTG IGG <2 Normal 0-5 [facility] Comment on above: Result Comment: Nega tive 0 - 5 Weak Positive 6 - 9 Positive >9 Performed By: #### L 3300.0700, L3410.2350, L3400.3800, L503.6030, L800.1280, L100.9950, L3100.3425, L803.2200, L3900.2100, L3000.0375, L503.6550, L3100.5440, L3100.5850 ####[facility] [address] [place], [place], [address] Comprehensive Metabolic Prof ilon 10-19-2023 Albumin [Mass/Vol] 2.3 g/dL Low 3.2-5.0 [facility] Comment on above: Order Comment: REDRA W. PREVIOUS SPECIMEN WAS REJECTED FOR TESTING DUE TOHEMOLYSIS. SPECIMEN WAS DISCARDED. 10/19/23 0836 Chassie LCrytzer. Performed By: #### L 3300.0700, L3410.2350, L3400.3800, L503.6030, L800.1280, L100.9950, L3100.3425, L803.2200, L3900.2100, L3000.0375, L503.6550, L3100.5440, L3100.5850 #### [facility] [address] [place], [place], [id number] Albumin/Globulin [Mass ratio] 0.5 {ratio} Low 0.9-2.4 [facility] Comment on above: Order Comment: REDRA W. PREVIOUS SPECIMEN WAS REJECTED FOR TESTING DUE TOHEMOLYSIS. SPECIMEN WAS DISCARDED. 10/19/23 0836 Chassie LCrytzer. Performed By: #### L 3300.0700, L3410.2350, L3400.3800, L503.6030, L800.1280, L100.9950, L3100.3425, L803.2200, L3900.2100, L3000.0375, L503.6550, L3100.5440, L3100.5850 #### [facility] [address] [place], [place], [address] ALK P 351 U/L High 45-117 [facility] Comment on above: Order Comment: REDRA W. PREVIOUS SPECIMEN WAS REJECTED FOR TESTING DUE TOHEMOLYSIS. SPECIMEN WAS DISCARDED. 10/19/23 0836 Chassie LCrytzer. Performed By: #### L 3300.0700, L3410.2350, L3400.3800, L503.6030, L800.1280, L100.9950, L3100.3425, L803.2200, L3900.2100, L3000.0375, L503.6550, L3100.5440, L3100.5850 #### [facility] [address] [place], [place], [id number] ALT [Catalytic activity/Vol] 192 U/L High 13-56 [facility] Comment on above: Order Comment: REDRA W. PREVIOUS SPECIMEN WAS REJECTED FOR TESTING DUE TOHEMOLYSIS. SPECIMEN WAS DISCARDED. 10/19/23 0836 Chassie LCrytzer. Performed By: #### L 3300.0700, L3410.2350, L3400.3800, L503.6030, L800.1280, L100.9950, L3100.3425, L803.2200, L3900.2100, L3000.0375, L503.6550, L3100.5440, L3100.5850 #### [facility] [address] [place], [place], [id number] AST [Catalytic activity/Vol] 51 U/L High 15-37 [facility] Comment on above: Order Comment: REDRA W. PREVIOUS SPECIMEN WAS REJECTED FOR TESTING DUE TOHEMOLYSIS. SPECIMEN WAS DISCARDED. 10/19/23 0836 Chassie LCrytzer. Result Comment: Slig ht Hemolysis, Result may be falsely increased. Performed By: #### L 3300.0700, L3410.2350, L3400.3800, L503.6030, L800.1280, L100.9950, L3100.3425, L803.2200, L3900.2100, L3000.0375, L503.6550, L3100.5440, L3100.5850 #### [facility] [address] [place], [address] Bilirubin [Mass/Vol] 4.90 mg/dL High 0.20-1.00 [facility] Comment on above: Order Comment: REDRA W. PREVIOUS SPECIMEN WAS REJECTED FOR TESTING DUE TOHEMOLYSIS. SPECIMEN WAS DISCARDED. 10/19/23 0836 Tattoodossie LCrytzer. Result Comment: For patients on eltrombopag therapy, use of Dimension [place] TBIL is not recommended. Performed By: #### L 3300.0700, L3410.2350, L3400.3800, L503.6030, L800.1280, L100.9950, L3100.3425, L803.2200, L3900.2100, L3000.0375, L503.6550, L3100.5440, L3100.5850 #### [facility] [address] [place], [address] BUN/CRE 12.1 RATIO Normal 10-20 [facility] Comment on above: Order Comment: REDRA W. PREVIOUS SPECIMEN WAS REJECTED FOR TESTING DUE TOHEMOLYSIS. SPECIMEN WAS DISCARDED. 10/19/23 0836 Chassie LCrytzer. Performed By: #### L 3300.0700, L3410.2350, L3400.3800, L503.6030, L800.1280, L100.9950, L3100.3425, L803.2200, L3900.2100, L3000.0375, L503.6550, L3100.5440, L3100.5850 #### [facility] [address] [place], [address] CA,Total 9.3 mg/dL Normal 8.5-10.1 [facility] [facility] Comment on above: Order Comment: REDRA W. PREVIOUS SPECIMEN WAS REJECTED FOR TESTING DUE TOHEMOLYSIS. SPECIMEN WAS DISCARDED. 10/19/23 0836 Chassie LCrytzer. Performed By: #### L 3300.0700, L3410.2350, L3400.3800, L503.6030, L800.1280, L100.9950, L3100.3425, L803.2200, L3900.2100, L3000.0375, L503.6550, L3100.5440, L3100.5850 #### [facility] [address] [place], [address] Chloride [Moles/Vol] 108 mmol/L High 98-107 [facility] Comment on above: Order Comment: REDRA W. PREVIOUS SPECIMEN WAS REJECTED FOR TESTING DUE TOHEMOLYSIS. SPECIMEN WAS DISCARDED. 10/19/23835 [employer] LCrytzer. Performed By: #### L 3300.0700, L3410.2350, L3400.3800, L503.6030, L800.1280, L100.9950, L3100.3425, L803.2200, L3900.2100, L3000.0375, L503.6550, L3100.5440, L3100.5850 #### [facility] [address] [place], [address] CO2 [Moles/Vol] 17.0 mmol/L Low 21.0-32.0 [facility] Comment on above: Order Comment: REDRA W. PREVIOUS SPECIMEN WAS REJECTED FOR TESTING DUE TOHEMOLYSIS. SPECIMEN WAS DISCARDED. 10/19/23835 [employer] LCrytzer. Performed By: #### L 3300.0700, L3410.2350, L3400.3800, L503.6030, L800.1280, L100.9950, L3100.3425, L803.2200, L3900.2100, L3000.0375, L503.6550, L3100.5440, L3100.5850 #### [facility] [address] [place], [address] Creatinine [Mass/Vol] 1.07 mg/dL High 0.55-1.02 [facility] Comment on above: Order Comment: REDRA W. PREVIOUS SPECIMEN WAS REJECTED FOR TESTING DUE TOHEMOLYSIS. SPECIMEN WAS DISCARDED. 10/19/23 0836 [employer] LC[employer]. Result Comment: The validity of the calculated GFR GFRAA in patients over 70 years has not been determined. Clinical correlation is essential. Performed By: #### L 3300.0700, L3410.2350, L3400.3800, L503.6030, L800.1280, L100.9950, L3100.3425, L803.2200, L3900.2100, L3000.0375, L503.6550, L3100.5440, L3100.5850 #### [facility] [address] [place], [place], [address] ECRCL 57.46 ml/min Normal [facility] Comment on above: Order Comment: REDRA W. PREVIOUS SPECIMEN WAS REJECTED FOR TESTING DUE TOHEMOLYSIS. SPECIMEN WAS DISCARDED. 10/19/23 0836 [employer]. Performed By: #### L 3300.0700, L3410.2350, L3400.3800, L503.6030, L800.1280, L100.9950, L3100.3425, L803.2200, L3900.2100, L3000.0375, L503.6550, L3100.5440, L3100.5850 #### [facility] [address] [place], [place], [address] EST GFR - AA 64 mL/min Normal >60 [facility] Comment on above: Order Comment: REDRA W. PREVIOUS SPECIMEN WAS REJECTED FOR TESTING DUE TOHEMOLYSIS. SPECIMEN WAS DISCARDED. 10/19/23 0836 [employer] LC[employer]. Result Comment: Afri can Gibraltarian GFR Calc Performed By: #### L 3300.0700, L3410.2350, L3400.3800, L503.6030, L800.1280, L100.9950, L3100.3425, L803.2200, L3900.2100, L3000.0375, L503.6550, L3100.5440, L3100.5850 #### [facility] [address] [place], [place], [address] GAP 7 Normal 5-15 [facility] Comment on above: Order Comment: REDRA W. PREVIOUS SPECIMEN WAS REJECTED FOR TESTING DUE TOHEMOLYSIS. SPECIMEN WAS DISCARDED. 10/19/23 0836 [employer]. Performed By: #### L 3300.0700, L3410.2350, L3400.3800, L503.6030, L800.1280, L100.9950, L3100.3425, L803.2200, L3900.2100, L3000.0375, L503.6550, L3100.5440, L3100.5850 #### [facility] [address] [place], [place], [address] [phone] GFR/1.73 sq M.predicted among non-blacks MDRD (S/P/Bld) [Vol rate/Area] 53 mL/min/{1.73_m2} Low >60 [facility] Comment on above: Order Comment: REDRA W. PREVIOUS SPECIMEN WAS REJECTED FOR TESTING DUE TOHEMOLYSIS. SPECIMEN WAS DISCARDED. 10/19/23 0836 [employer]. Result Comment: Non- GFR Calc Performed By: #### L 3300.0700, L3410.2350, L3400.3800, L503.6030, L800.1280, L100.9950, L3100.3425, L803.2200, L3900.2100, L3000.0375, L503.6550, L3100.5440, L3100.5850 #### [facility] [address] [place], [place], [id number] (892) Globulin (S) [Mass/Vol] 4.2 g/dL Normal 2.2-4.2 [facility] Comment on above: Order Comment: REDRA W. PREVIOUS SPECIMEN WAS REJECTED FOR TESTING DUE TOHEMOLYSIS. SPECIMEN WAS DISCARDED. 10/19/23 0836 [employer]. Performed By: #### L 3300.0700, L3410.2350, L3400.3800, L503.6030, L800.1280, L100.9950, L3100.3425, L803.2200, L3900.2100, L3000.0375, L503.6550, L3100.5440, L3100.5850 #### [facility] [address] [place], [address] Glucose [Mass/Vol] 178 mg/dL High 74-106 [facility] Comment on above: Order Comment: REDRA W. PREVIOUS SPECIMEN WAS REJECTED FOR TESTING DUE TOHEMOLYSIS. SPECIMEN WAS DISCARDED. 10/19/23 0836 [employer]. Result Comment: Fast ing Glucose result greater than or equal to 126 mg/dL suggests DIABETES MELLITUS per A.D.A. criteria. Performed By: #### L 3300.0700, L3410.2350, L3400.3800, L503.6030, L800.1280, L100.9950, L3100.3425, L803.2200, L3900.2100, L3000.0375, L503.6550, L3100.5440, L3100.5850 #### [facility] [address] [place], [address] Potassium [Moles/Vol] 3.9 mmol/L Normal 3.5-5.1 [facility] Comment on above: Order Comment: REDRA W. PREVIOUS SPECIMEN WAS REJECTED FOR TESTING DUE TOHEMOLYSIS. SPECIMEN WAS DISCARDED. 10/19/23 0836 [employer]. Result Comment: Slig ht Hemolysis, Result may be falsely increased. Performed By: #### L 3300.0700, L3410.2350, L3400.3800, L503.6030, L800.1280, L100.9950, L3100.3425, L803.2200, L3900.2100, L3000.0375, L503.6550, L3100.5440, L3100.5850 #### [facility] [address] [place], [place], [address] Sodium [Moles/Vol] 132 mmol/L Low 136-145 [facility] Comment on above: Order Comment: REDRA W. PREVIOUS SPECIMEN WAS REJECTED FOR TESTING DUE TOHEMOLYSIS. SPECIMEN WAS DISCARDED. 10/19/2336 [employer]. Performed By: #### L 3300.0700, L3410.2350, L3400.3800, L503.6030, L800.1280, L100.9950, L3100.3425, L803.2200, L3900.2100, L3000.0375, L503.6550, L3100.5440, L3100.5850 #### [facility] [address] [place], [address] T PROT 6.5 g/dL Normal 6.4-8.2 [facility] Comment on above: Order Comment: REDRA W. PREVIOUS SPECIMEN WAS REJECTED FOR TESTING DUE TOHEMOLYSIS. SPECIMEN WAS DISCARDED. 10/19/2336 [employer]. Performed By: #### L 3300.0700, L3410.2350, L3400.3800, L503.6030, L800.1280, L100.9950, L3100.3425, L803.2200, L3900.2100, L3000.0375, L503.6550, L3100.5440, L3100.5850 #### [facility] [address] [place], [place], [address] Urea nitrogen [Mass/Vol] 13 mg/dL Normal 7-18 [facility] Comment on above: Order Comment: REDRA W. PREVIOUS SPECIMEN WAS REJECTED FOR TESTING DUE TOHEMOLYSIS. SPECIMEN WAS DISCARDED. 10/19/2336 ChaVideofropperie LCrytzer. Performed By: #### L 3300.0700, L3410.2350, L3400.3800, L503.6030, L800.1280, L100.9950, L3100.3425, L803.2200, L3900.2100, L3000.0375, L503.6550, L3100.5440, L3100.5850 #### [facility] [address] [place], [place], [address] ALB Normal 3.2-5.0 [facility] Comment on above: Result Comment: This specimen has been REJECTED due to Laboratory criteria: Hemolyzed. MS3 THUY has been notified of need of recollection. 10/19/2334 Pako Puenteser Performed By: #### L 3300.0700, L3410.2350, L3400.3800, L503.6030, L800.1280, L100.9950, L3100.3425, L803.2200, L3900.2100, L3000.0375, L503.6550, L3100.5440, L3100.5850 #### [facility] [address] [place], [place], [address] ALK P Normal 45-117 [facility] Comment on above: Result Comment: This specimen has been REJECTED due to Laboratory criteria: Hemolyzed. MS3 DSMILDEFONSO has been notified of need of recollection. 10/19/2334 Pako Covington Performed By: #### L 3300.0700, L3410.2350, L3400.3800, L503.6030, L800.1280, L100.9950, L3100.3425, L803.2200, L3900.2100, L3000.0375, L503.6550, L3100.5440, L3100.5850 #### [facility] [address] [place], [place], [address] ALT Normal 13-56 [facility] Comment on above: Result Comment: This specimen has been REJECTED due to Laboratory criteria: Hemolyzed. MS3 DSMILDEFONSO has been notified of need of recollection. 10/19/2334 Pako Covington Performed By: #### L 3300.0700, L3410.2350, L3400.3800, L503.6030, L800.1280, L100.9950, L3100.3425, L803.2200, L3900.2100, L3000.0375, L503.6550, L3100.5440, L3100.5850 #### [facility] [address] [place], [place], [id number] (492) AST Normal 15-37 [facility] Comment on above: Result Comment: This specimen has been REJECTED due to Laboratory criteria: Hemolyzed. CAITIE DALEY has been notified of need of recollection. 10/19/2334 Pako L Crytzer Performed By: #### L 3300.0700, L3410.2350, L3400.3800, L503.6030, L800.1280, L100.9950, L3100.3425, L803.2200, L3900.2100, L3000.0375, L503.6550, L3100.5440, L3100.5850 #### [facility] [address] [place], [place], [id number] (646) BUN Normal 7-18 [facility] Comment on above: Result Comment: This specimen has been REJECTED due to Laboratory criteria: Hemolyzed. CAITIE DALEY has been notified of need of recollection. 10/19/2334 Pako L Crytzer Performed By: #### L 3300.0700, L3410.2350, L3400.3800, L503.6030, L800.1280, L100.9950, L3100.3425, L803.2200, L3900.2100, L3000.0375, L503.6550, L3100.5440, L3100.5850 #### [facility] [address] [place], [place], [id number] (840) BUN/CRE Normal 10-20 [facility] Comment on above: Result Comment: This specimen has been REJECTED due to Laboratory criteria: Hemolyzed. CAITIE DALEY has been notified of need of recollection. 10/19/2334 Chassie L Crytzer Performed By: #### L 3300.0700, L3410.2350, L3400.3800, L503.6030, L800.1280, L100.9950, L3100.3425, L803.2200, L3900.2100, L3000.0375, L503.6550, L3100.5440, L3100.5850 #### [facility] [address] [place], [place], [id number] (806) CA,Total Normal 8.5-10.1 [facility] Comment on above: Result Comment: This specimen has been REJECTED due to Laboratory criteria: Hemolyzed. 3 THUY has been notified of need of recollection. 10/19/23833 Pako Covington Performed By: #### L 3300.0700, L3410.2350, L3400.3800, L503.6030, L800.1280, L100.9950, L3100.3425, L803.2200, L3900.2100, L3000.0375, L503.6550, L3100.5440, L3100.5850 #### [facility] [address] [place], [address] CL Normal 98-107 [facility] Comment on above: Result Comment: This specimen has been REJECTED due to Laboratory criteria: Hemolyzed. 3 THUY has been notified of need of recollection. 10/19/2334 Pako Covington Performed By: #### L 3300.0700, L3410.2350, L3400.3800, L503.6030, L800.1280, L100.9950, L3100.3425, L803.2200, L3900.2100, L3000.0375, L503.6550, L3100.5440, L3100.5850 #### [facility] [address] [place], [place], [phone] (190) CO2 Normal 21.0-32.0 [facility] Comment on above: Result Comment: This specimen has been REJECTED due to Laboratory criteria: Hemolyzed. MS3 THUY has been notified of need of recollection. 10/19/2334 Pako L Crytzer Performed By: #### L 3300.0700, L3410.2350, L3400.3800, L503.6030, L800.1280, L100.9950, L3100.3425, L803.2200, L3900.2100, L3000.0375, L503.6550, L3100.5440, L3100.5850 #### [facility] [address] [place], [place], [phone] (466) CREAT,SERUM Normal 0.55-1.02 [facility] Comment on above: Result Comment: This specimen has been REJECTED due to Laboratory criteria: Hemolyzed. CAITIE DALEY has been notified of need of recollection. 10/19/2334 Pako L Crytzer Performed By: #### L 3300.0700, L3410.2350, L3400.3800, L503.6030, L800.1280, L100.9950, L3100.3425, L803.2200, L3900.2100, L3000.0375, L503.6550, L3100.5440, L3100.5850 #### [facility] [address] [place], [place], [address] EST GFR Normal >60 [facility] Comment on above: Result Comment: This specimen has been REJECTED due to Laboratory criteria: Hemolyzed. 3 THUY has been notified of need of recollection. 10/19/2334 Pako L Crytzer Performed By: #### L 3300.0700, L3410.2350, L3400.3800, L503.6030, L800.1280, L100.9950, L3100.3425, L803.2200, L3900.2100, L3000.0375, L503.6550, L3100.5440, L3100.5850 #### [facility] [address] [place], [place], [address] EST GFR - AA Normal >60 [facility] Comment on above: Result Comment: This specimen has been REJECTED due to Laboratory criteria: Hemolyzed. 3 THUY has been notified of need of recollection. 10/19/23833 Pako Puenteser Performed By: #### L 3300.0700, L3410.2350, L3400.3800, L503.6030, L800.1280, L100.9950, L3100.3425, L803.2200, L3900.2100, L3000.0375, L503.6550, L3100.5440, L3100.5850 #### [facility] [address] [place], [place], [id number] GAP Normal 5-15 [facility] Comment on above: Result Comment: This specimen has been REJECTED due to Laboratory criteria: Hemolyzed. 3 THUY has been notified of need of recollection. 10/19/2334 Pako Puenteser Performed By: #### L 3300.0700, L3410.2350, L3400.3800, L503.6030, L800.1280, L100.9950, L3100.3425, L803.2200, L3900.2100, L3000.0375, L503.6550, L3100.5440, L3100.5850 #### [facility] [address] [place], [place], [id number] GLU Normal 74-106 [facility] Comment on above: Result Comment: This specimen has been REJECTED due to Laboratory criteria: Hemolyzed. MS3 THUY has been notified of need of recollection. 10/19/23833 Pako Puenteser Performed By: #### L 3300.0700, L3410.2350, L3400.3800, L503.6030, L800.1280, L100.9950, L3100.3425, L803.2200, L3900.2100, L3000.0375, L503.6550, L3100.5440, L3100.5850 #### [facility] [address] [place], [address] Potassium Normal 3.5-5.1 [facility] Comment on above: Result Comment: This specimen has been REJECTED due to Laboratory criteria: Hemolyzed. MS3 THUY has been notified of need of recollection. 10/19/2334 Chassie L Crytzer Performed By: #### L 3300.0700, L3410.2350, L3400.3800, L503.6030, L800.1280, L100.9950, L3100.3425, L803.2200, L3900.2100, L3000.0375, L503.6550, L3100.5440, L3100.5850 #### [facility] [address] [place], [address] T BILI Normal 0.20-1.00 [facility] Comment on above: Result Comment: This specimen has been REJECTED due to Laboratory criteria: Hemolyzed. MS3 DSMILDEFONSO has been notified of need of recollection. 10/19/23 0834 Chacarmenie L Crytzer Performed By: #### L 3300.0700, L3410.2350, L3400.3800, L503.6030, L800.1280, L100.9950, L3100.3425, L803.2200, L3900.2100, L3000.0375, L503.6550, L3100.5440, L3100.5850 #### [facility] [address] [place], [address] T PROT Normal 6.4-8.2 [facility] Comment on above: Result Comment: This specimen has been REJECTED due to Laboratory criteria: Hemolyzed. MS3 DSMITH has been notified of need of recollection. 10/19/23 0834 Chassie L Crytzer Performed By: #### L 3300.0700, L3410.2350, L3400.3800, L503.6030, L800.1280, L100.9950, L3100.3425, L803.2200, L3900.2100, L3000.0375, L503.6550, L3100.5440, L3100.5850 #### [facility] [address] [place], [address] Comprehensive Metabolic Profil Normal 136-145 [facility] Comment on above: Result Comment: This specimen has been REJECTED due to Laboratory criteria: Hemolyzed. CAITIE DALEY has been notified of need of recollection. 10/19/23 0834 Pako Covington Performed By: #### L 3300.0700, L3410.2350, L3400.3800, L503.6030, L800.1280, L100.9950, L3100.3425, L803.2200, L3900.2100, L3000.0375, L503.6550, L3100.5440, L3100.5850 #### [facility] [address] [place], [address] Determination of erythrocyte mean corpuscular volume (MCV)Ordered By: Tirso Friend on 10-19-2023 MCV (RBC) [Entitic vol] 94.6 fL 81-99 [facility] Discharge Instructionon 10-03 Discharge Instruction [facility] Medical Records Department [address] [place] [address] Instructions for Home/Discharge Instructions 10/19/23 1130 MR#: [id number] Acct: [id number] Name: PENNY MCKEON Rep #: [id number] : 1945 78 From: Tirso Friend MD [...] medications, I would recommend transitioning to these nthc-rmo-empmjwg medicines as soon as possible instead of continued use of narcotic pain medication. Follow up ??? You should call [facility] soon after surgery, at [phone] option 1 to make a follow up [...] PO DAILY Patient Comments: TAKE 1 CAPSULE (44905 UNITS) BY MOUTH ONCE A WEEK escitalopram [...] [Med Staff (more content not included)... Normal [facility] EBV Acute Prof IgG / IgMon 0 1-17-2024 EB Ab VCA, IgG > 600.0 High 0.0-17.9 [facility] Comment on above: Result Comment: Nega tive <18.0 Equivocal 18.0 - 21.9 Positive >21.9 Performed By: #### L 3300.0700, L3410.2350, L3400.3800, L503.6030, L800.1280, L100.9950, L3100.3425, L803.2200, L3900.2100, L3000.0375, L503.6550, L3100.5440, L3100.5850 ####[facility] [address] [place], [address] EBV Ab VCA, IgM < 36.0 Normal 0.0-35.9 [facility] Comment on above: Result Comment: Nega tive <36.0 Equivocal 36.0 - 43.9 Positive >43.9 Performed By: #### L 3300.0700, L3410.2350, L3400.3800, L503.6030, L800.1280, L100.9950, L3100.3425, L803.2200, L3900.2100, L3000.0375, L503.6550, L3100.5440, L3100.5850 ####[facility] [address] [place], [address] EBV NuAg Ab,IgG 37.6 U/mL High 0.0-17.9 [facility] Comment on above: Result Comment: Nega tive <18.0 Equivocal 18.0 - 21.9 Positive >21.9 Performed By: #### L 3300.0700, L3410.2350, L3400.3800, L503.6030, L800.1280, L100.9950, L3100.3425, L803.2200, L3900.2100, L3000.0375, L503.6550, L3100.5440, L3100.5850 ####[facility] [address] [place], [address] INTERPRETATION Comment Normal . [facility] Comment on above: Result Comment: EBV Interpretation [...] L3100.3425, L803.2200, L3900.2100, L3000.0375, L503.6550, L3100.5440, L3100.5850 ####[facility] [address] [place], [address] Erythrocyte distribution wid th ratioOrdered By: Tirso Friend on 10-19-2023 Erythrocyte distribution width (RBC) [Ratio] 15.9 % 11.6-14.6 [facility] Erythrocyte distribution wid th standard deviationOrdered By: Tirsoanca Friend on 10-19-2023 Erythrocyte distribution width (RBC) [Entitic vol] 54.3 fL 35.1-43.9 [facility] Hematocrit Auto (Bld) [Volum e fraction]Ordered By: Tirso Friend on 10-19-2023 Hematocrit (Bld) [Volume fraction] 33.3 % 37-47 [facility] Hepatitis Panel Acuteon 10-03 COMMENT Comment Normal . [facility] Comment on above: Result Comment: Not infected with HCV unless early or acute infection is suspected (which may be delayed in an immunocompromised individual), or other evidence exists to indicate HCV infection. Performed By: #### L 3300.0700, L3410.2350, L3400.3800, L503.6030, L800.1280, L100.9950, L3100.3425, L803.2200, L3900.2100, L3000.0375, L503.6550, L3100.5440, L3100.5850 ####[facility] [address] [place], [address] HEP B CORE,IgM Negative Normal Negative [facility] Comment on above: Performed By: #### L 3300.0700, L3410.2350, L3400.3800, L503.6030, L800.1280, L100.9950, L3100.3425, L803.2200, L3900.2100, L3000.0375, L503.6550, L3100.5440, L3100.5850 ####[facility] [address] [place], [place], [address] HEP B SURF AG Negative Normal Negative [facility] Comment on above: Performed By: #### L 3300.0700, L3410.2350, L3400.3800, L503.6030, L800.1280, L100.9950, L3100.3425, L803.2200, L3900.2100, L3000.0375, L503.6550, L3100.5440, L3100.5850 ####[facility] [address] [place], [place], [id number] HEP C VIRUS AB Non-Reactive Normal Non Reactive [facility] Comment on above: Performed By: #### L 3300.0700, L3410.2350, L3400.3800, L503.6030, L800.1280, L100.9950, L3100.3425, L803.2200, L3900.2100, L3000.0375, L503.6550, L3100.5440, L3100.5850 ####[facility] [address] [place], [place], [address] HEPATITIS A-IgM Negative Normal Negative [facility] Comment on above: Performed By: #### L 3300.0700, L3410.2350, L3400.3800, L503.6030, L800.1280, L100.9950, L3100.3425, L803.2200, L3900.2100, L3000.0375, L503.6550, L3100.5440, L3100.5850 ####[facility] [address] [place], [place], [id number] TAYLOR + Protein Elect, Serumon 10-19-2023 Albumin [Mass/Vol] 2.6 g/dL Low 2.9-4.4 [facility] Comment on above: Performed By: #### L 3300.0700, L3410.2350, L3400.3800, L503.6030, L800.1280, L100.9950, L3100.3425, L803.2200, L3900.2100, L3000.0375, L503.6550, L3100.5440, L3100.5850 ####[facility] [address] [place], [place], [id number] Albumin/Globulin [Mass ratio] 0.9 {ratio} Normal 0.7-1.7 [facility] Comment on above: Performed By: #### L 3300.0700, L3410.2350, L3400.3800, L503.6030, L800.1280, L100.9950, L3100.3425, L803.2200, L3900.2100, L3000.0375, L503.6550, L3100.5440, L3100.5850 ####[facility] [address] [place], [place], [address] XQTHU-2-FRBA 0.3 g/dL Normal 0.0-0.4 [facility] Comment on above: Performed By: #### L 3300.0700, L3410.2350, L3400.3800, L503.6030, L800.1280, L100.9950, L3100.3425, L803.2200, L3900.2100, L3000.0375, L503.6550, L3100.5440, L3100.5850 ####[facility] [address] [place], [place], [phone] PYTCW-2-HHLT 1.0 g/dL Normal 0.4-1.0 [facility] Comment on above: Performed By: #### L 3300.0700, L3410.2350, L3400.3800, L503.6030, L800.1280, L100.9950, L3100.3425, L803.2200, L3900.2100, L3000.0375, L503.6550, L3100.5440, L3100.5850 ####[facility] [address] [place], [place], [id number](720) BETA GLOBULIN 1.1 g/dL Normal 0.7-1.3 [facility] Comment on above: Performed By: #### L 3300.0700, L3410.2350, L3400.3800, L503.6030, L800.1280, L100.9950, L3100.3425, L803.2200, L3900.2100, L3000.0375, L503.6550, L3100.5440, L3100.5850 ####[facility] [address] [place], [place], [phone] GAMMA GLOBULIN 0.6 g/dL Normal 0.4-1.8 [facility] Comment on above: Performed By: #### L 3300.0700, L3410.2350, L3400.3800, L503.6030, L800.1280, L100.9950, L3100.3425, L803.2200, L3900.2100, L3000.0375, L503.6550, L3100.5440, L3100.5850 ####[facility] [address] [place], [place], [id number] Globulin (S) [Mass/Vol] 2.9 g/dL Normal 2.2-3.9 [facility] Comment on above: Performed By: #### L 3300.0700, L3410.2350, L3400.3800, L503.6030, L800.1280, L100.9950, L3100.3425, L803.2200, L3900.2100, L3000.0375, L503.6550, L3100.5440, L3100.5850 ####[facility] [address] [place], [address] TAYLOR RESULT,S Comment Normal . [facility] Comment on above: Result Comment: No m onoclonality detected. Performed By: #### L 3300.0700, L3410.2350, L3400.3800, L503.6030, L800.1280, L100.9950, L3100.3425, L803.2200, L3900.2100, L3000.0375, L503.6550, L3100.5440, L3100.5850 ####[facility] [address] [place], [address] IMMUNOGLOB A QN 261 mg/dL Normal 64-422 [facility] Comment on above: Performed By: #### L 3300.0700, L3410.2350, L3400.3800, L503.6030, L800.1280, L100.9950, L3100.3425, L803.2200, L3900.2100, L3000.0375, L503.6550, L3100.5440, L3100.5850 ####[facility] [address] [place], [address] IMMUNOGLOB G QN 691 mg/dL Normal 586-1602 [facility] Comment on above: Performed By: #### L 3300.0700, L3410.2350, L3400.3800, L503.6030, L800.1280, L100.9950, L3100.3425, L803.2200, L3900.2100, L3000.0375, L503.6550, L3100.5440, L3100.5850 ####[facility] [address] [place], [address] IMMUNOGLOB M QN 104 mg/dL Normal 26-217 [facility] Comment on above: Performed By: #### L 3300.0700, L3410.2350, L3400.3800, L503.6030, L800.1280, L100.9950, L3100.3425, L803.2200, L3900.2100, L3000.0375, L503.6550, L3100.5440, L3100.5850 ####[facility] [address] [place], [address] M-Giuliano Not Observed Normal Not Observed [facility] Comment on above: Performed By: #### L 3300.0700, L3410.2350, L3400.3800, L503.6030, L800.1280, L100.9950, L3100.3425, L803.2200, L3900.2100, L3000.0375, L503.6550, L3100.5440, L3100.5850 ####[facility] [address] [place], [place], [id number] NOTE: Comment Normal . [facility] Comment on above: Result Comment: Prot ein electrophoresis scan will follow via computer, mail, or shampoo technician delivery. Performed By: #### L 3300.0700, L3410.2350, L3400.3800, L503.6030, L800.1280, L100.9950, L3100.3425, L803.2200, L3900.2100, L3000.0375, L503.6550, L3100.5440, L3100.5850 ####[facility] [address] [place], [address] Protein [Mass/Vol] 5.5 g/dL Low 6.0-8.5 [facility] Comment on above: Performed By: #### L 3300.0700, L3410.2350, L3400.3800, L503.6030, L800.1280, L100.9950, L3100.3425, L803.2200, L3900.2100, L3000.0375, L503.6550, L3100.5440, L3100.5850 ####[facility] [address] [place], [address] Immature granulocytes/100 WB C Auto (Bld)Ordered By: Tirso Friend on 10-19-2023 Immature granulocytes/100 WBC (Bld) 1.300 % 0.0-0.9 [facility] Comment on above: IG% - Immature Granu locytes (promyelocytes, myelocytes and metamyelocytes) > 1% indicates that a LEFT SHIFT is Present. Laboratory - Chemistry and C hemistry - challengeOrdered By: Tirso Friedn on 10-19-2023 Albumin/Globulin [Mass ratio] 0.5 {ratio} 0.9-2.4 [facility] ALP [Catalytic activity/Vol] 351 U/L 45-117 [facility] ALT [Catalytic activity/Vol] 192 U/L 13-56 [facility] CO2 [Moles/Vol] 17.0 mmol/L 21.0-32.0 [facility] Globulin (S) [Mass/Vol] 4.2 g/dL 2.2-4.2 [facility] Urea nitrogen/Creatinine [Mass ratio] 12.1 mg/mg 10-20 [facility] Laboratory - Hematology and Cell countsOrdered By: Tirso Friend on 10-19-2023 MCH (RBC) [Entitic mass] 31.5 pg 27.0-32.0 [facility] MCHC (RBC) [Mass/Vol] 33.3 g/dL 32-36 [facility] Nucleated RBC/100 WBC (Bld) [Ratio] 0 % 0-5 [facility] Platelets (Bld) [#/Vol] 191 10*3/uL 150-450 [facility] No Panel InformationOrdered By: Tirso Friend on 10-19-2023 Estimated Creatinine Clearance Calc 57.46 ml/min [facility] Estimated GFR (MDRD) Amer 64 mL/min >60 [facility] Comment on above: GFR Calc Estimated GFR (MDRD) Non-Af Amer 53 mL/min >60 [facility] Comment on above: Non- GFR Calc Platelet mean volume Christian-Ec ker (Bld) [Entitic vol]Ordered By: Tirso Friend on 10-19-2023 Platelet mean volume (Bld) [Entitic vol] 11.2 fL 6.2-12.0 [facility] RBC Auto (Bld) [#/Vol]Ordere d By: Tirso Friend on 10-19-2023 RBC (Bld) [#/Vol] 3.52 10*6/uL 4.2-5.4 [place] Serum or plasma calcium esthela urement (mass/volume)Ordered By: Tirso Friend on 10-19-2023 Calcium [Mass/Vol] 9.3 mg/dL 8.5-10.1 [facility] Serum or plasma creatinine m easurement (mass/volume)Ordered By: Tirso Friend on 10-19-2023 Creatinine [Mass/Vol] 1.07 mg/dL 0.55-1.02 [facility] Comment on above: The validity of the calculated GFR & GFRAA in patients over 70 years has not been determined. Clinical correlation is essential. Serum or plasma urea nitroge n measurement (mass/volume)Ordered By: Tirso Friend on 10-19-2023 Urea nitrogen [Mass/Vol] 13 mg/dL 7-18 [facility] Thin prep Papanicolaou smear with manual screeningOrdered By: Tirso Friend on 10-19-2023 Thin prep Papanicolaou smear with manual screening 262 mg/dL 74-106 [facility] Comment on above: MANAGEMENT OF PATIEN T CARE PER NURSING PROTOCOL Thin prep Papanicolaou smear with manual screening 2.3 g/dL 3.2-5.0 [facility] Thin prep Papanicolaou smear with manual screening 51 U/L 15-37 [facility] Comment on above: Slight Hemolysis, Re sult may be falsely increased. Thin prep Papanicolaou smear with manual screening 7 5-15 [facility] Transferrinon 10-19-2023 Transferrin [Mass/Vol] 249 mg/dL Normal 192-364 [facility] Comment on above: Result Comment: Perf ormed at: CB - [facility] [id number] [place], [place] [id number] Community Outreach Coordinator: Brijesh Posadas PhD, Phone: [phone] Performed By: #### L 3300.0700, L3410.2350, L3400.3800, L503.6030, L800.1280, L100.9950, L3100.3425, L803.2200, L3900.2100, L3000.0375, L503.6550, L3100.5440, L3100.5850 ####[facility] [address] [place], [place], [id number] Albumin Elph [Mass/Vol]Order ed By: Patric Polanco on 10-18-2023 Albumin [Mass/Vol] 2.6 g/dL 2.9-4.4 [facility] Alpha fetoprotein measuremen t as tumor markerOrdered By: Patric Polanco on 10-18-2023 AFP.tumor marker [Mass/Vol] ng/mL 0.0-9.2 [facility] Comment on above: [facility] El ectrochemiluminescence Immunoassay(ECLIA)Values obtained with different assay methods or kits cannotbe used interchangeably. Results cannot be interpreted asabsolute evidence of the presence or absence of malignantdisease.This test is not interpretable in females. Bedside Glucoseon 10-18-2023 FINGERSTICK GLU 288 mg/dL High 74-106 [facility] Comment on above: Result Comment: JORDAN AMAYA OF PATIENT CARE PER NURSING PROTOCOL Performed By: #### L 3300.0700, L3410.2350, L3400.3800, L503.6030, L800.1280, L100.9950, L3100.3425, L803.2200, L3900.2100, L3000.0375, L503.6550, L3100.5440, L3100.5850 #### [facility] [address] [place], [address] FINGERSTICK GLU 272 mg/dL High 74-106 [facility] Comment on above: Result Comment: JORDAN GEMENT OF PATIENT CARE PER NURSING PROTOCOL Performed By: #### L 501.080 ####[facility] [address] [place], [address] FINGERSTICK GLU 117 mg/dL High 74-106 [facility] Comment on above: Result Comment: JORDAN GEMENT OF PATIENT CARE PER NURSING PROTOCOL Performed By: #### L 3300.0700, L3410.2350, L3400.3800, L503.6030, L800.1280, L100.9950, L3100.3425, L803.2200, L3900.2100, L3000.0375, L503.6550, L3100.5440, L3100.5850 #### [facility] [address] [place], [address] FINGERSTICK GLU 120 mg/dL High 74-106 [facility] Comment on above: Result Comment: JORDAN GEMENT OF PATIENT CARE PER NURSING PROTOCOL Performed By: #### L 3300.0700, L3410.2350, L3400.3800, L503.6030, L800.1280, L100.9950, L3100.3425, L803.2200, L3900.2100, L3000.0375, L503.6550, L3100.5440, L3100.5850 #### [facility] [address] [place], [address] CBC W/Diff, Automatedon 10-03 Absolute Lymph 1.33 X10 3/uL Normal 0.83-4.51 [facility] Comment on above: Performed By: #### L 3300.0700, L3410.2350, L3400.3800, L503.6030, L800.1280, L100.9950, L3100.3425, L803.2200, L3900.2100, L3000.0375, L503.6550, L3100.5440, L3100.5850 #### [facility] [address] [place], [address] Absolute Neut 4.8 X10 3/uL Normal 2.0-7.7 [facility] Comment on above: Performed By: #### L 3300.0700, L3410.2350, L3400.3800, L503.6030, L800.1280, L100.9950, L3100.3425, L803.2200, L3900.2100, L3000.0375, L503.6550, L3100.5440, L3100.5850 #### [facility] [address] [place], [address] (527) Basophils/100 WBC (Bld) 1.0 % Normal 0-1 [facility] Comment on above: Performed By: #### L 3300.0700, L3410.2350, L3400.3800, L503.6030, L800.1280, L100.9950, L3100.3425, L803.2200, L3900.2100, L3000.0375, L503.6550, L3100.5440, L3100.5850 #### [facility] [address] [place], [address] Eosinophils/100 WBC (Bld) 9.6 % High 0-5 [facility] Comment on above: Performed By: #### L 3300.0700, L3410.2350, L3400.3800, L503.6030, L800.1280, L100.9950, L3100.3425, L803.2200, L3900.2100, L3000.0375, L503.6550, L3100.5440, L3100.5850 #### [facility] [address] [place], [address] (261) Erythrocyte distribution width (RBC) [Ratio] 15.2 % High 11.6-14.6 [facility] Comment on above: Performed By: #### L 3300.0700, L3410.2350, L3400.3800, L503.6030, L800.1280, L100.9950, L3100.3425, L803.2200, L3900.2100, L3000.0375, L503.6550, L3100.5440, L3100.5850 #### [facility] [address] [facility] [place], [place], [id number] Hematocrit (Bld) [Volume fraction] 34.1 % Low 37-47 [facility] Comment on above: Performed By: #### L 3300.0700, L3410.2350, L3400.3800, L503.6030, L800.1280, L100.9950, L3100.3425, L803.2200, L3900.2100, L3000.0375, L503.6550, L3100.5440, L3100.5850 #### [facility] [address] [place], [place], [phone] Hemoglobin (Bld) [Mass/Vol] 11.3 g/dL Low 12.0-15.0 [facility] Comment on above: Performed By: #### L 3300.0700, L3410.2350, L3400.3800, L503.6030, L800.1280, L100.9950, L3100.3425, L803.2200, L3900.2100, L3000.0375, L503.6550, L3100.5440, L3100.5850 #### [facility] [address] [facility] [place], [place], [id number] IG% 3.200 High 0.0-0.9 [facility] Comment on above: Result Comment: IG% - Immature Granulocytes (promyelocytes, myelocytes and metamyelocytes) > 1% indicates that a LEFT SHIFT is Present. Performed By: #### L 3300.0700, L3410.2350, L3400.3800, L503.6030, L800.1280, L100.9950, L3100.3425, L803.2200, L3900.2100, L3000.0375, L503.6550, L3100.5440, L3100.5850 #### [facility] [address] [place], [address] Lymphocytes/100 WBC (Bld) 17.0 % Low 19-41 [facility] Comment on above: Performed By: #### L 3300.0700, L3410.2350, L3400.3800, L503.6030, L800.1280, L100.9950, L3100.3425, L803.2200, L3900.2100, L3000.0375, L503.6550, L3100.5440, L3100.5850 #### [facility] [address] [place], [address] MCH (RBC) [Entitic mass] 30.9 pg Normal 27.0-32.0 [facility] Comment on above: Performed By: #### L 3300.0700, L3410.2350, L3400.3800, L503.6030, L800.1280, L100.9950, L3100.3425, L803.2200, L3900.2100, L3000.0375, L503.6550, L3100.5440, L3100.5850 #### [facility] [address] [place], [address] MCHC (RBC) [Mass/Vol] 33.1 g/dL Normal 32-36 [facility] Comment on above: Performed By: #### L 3300.0700, L3410.2350, L3400.3800, L503.6030, L800.1280, L100.9950, L3100.3425, L803.2200, L3900.2100, L3000.0375, L503.6550, L3100.5440, L3100.5850 #### [facility] [address] [place], [address] MCV (RBC) [Entitic vol] 93.2 fL Normal 81-99 [facility] Comment on above: Performed By: #### L 3300.0700, L3410.2350, L3400.3800, L503.6030, L800.1280, L100.9950, L3100.3425, L803.2200, L3900.2100, L3000.0375, L503.6550, L3100.5440, L3100.5850 #### [facility] [address] [facility] [place], [address] Monocytes/100 WBC (Bld) 8.3 % Normal 0-10 [facility] Comment on above: Performed By: #### L 3300.0700, L3410.2350, L3400.3800, L503.6030, L800.1280, L100.9950, L3100.3425, L803.2200, L3900.2100, L3000.0375, L503.6550, L3100.5440, L3100.5850 #### [facility] [address] [place], [address] Neutrophils/100 WBC (Bld) 60.9 % Normal 47-70 [facility] Comment on above: Performed By: #### L 3300.0700, L3410.2350, L3400.3800, L503.6030, L800.1280, L100.9950, L3100.3425, L803.2200, L3900.2100, L3000.0375, L503.6550, L3100.5440, L3100.5850 #### [facility] [address] [place], [address] Nucleated RBC (Bld) [#/Vol] 0 10*3/uL Normal 0-5 [facility] Comment on above: Performed By: #### L 3300.0700, L3410.2350, L3400.3800, L503.6030, L800.1280, L100.9950, L3100.3425, L803.2200, L3900.2100, L3000.0375, L503.6550, L3100.5440, L3100.5850 #### [facility] [address] [place], [address] Platelet mean volume (Bld) [Entitic vol] 9.7 fL Normal 6.2-12.0 [facility] Comment on above: Performed By: #### L 3300.0700, L3410.2350, L3400.3800, L503.6030, L800.1280, L100.9950, L3100.3425, L803.2200, L3900.2100, L3000.0375, L503.6550, L3100.5440, L3100.5850 #### [facility] [address] [place], [address] Platelets (Bld) [#/Vol] 157 10*3/uL Normal 150-450 [facility] Comment on above: Performed By: #### L 3300.0700, L3410.2350, L3400.3800, L503.6030, L800.1280, L100.9950, L3100.3425, L803.2200, L3900.2100, L3000.0375, L503.6550, L3100.5440, L3100.5850 #### [facility] [address] [place], [address] RBC (Bld) [#/Vol] 3.66 10*6/uL Low 4.2-5.4 [place] Comment on above: Performed By: #### L 3300.0700, L3410.2350, L3400.3800, L503.6030, L800.1280, L100.9950, L3100.3425, L803.2200, L3900.2100, L3000.0375, L503.6550, L3100.5440, L3100.5850 #### [facility] [address] [place], [place], [id number] RDW SD 52.0 fl High 35.1-43.9 [facility] Comment on above: Performed By: #### L 3300.0700, L3410.2350, L3400.3800, L503.6030, L800.1280, L100.9950, L3100.3425, L803.2200, L3900.2100, L3000.0375, L503.6550, L3100.5440, L3100.5850 #### [facility] [address] [place], [place], [id number] WBC (Bld) [#/Vol] 7.8 10*3/uL Normal 4.4-11.0 [facility] Comment on above: Performed By: #### L 3300.0700, L3410.2350, L3400.3800, L503.6030, L800.1280, L100.9950, L3100.3425, L803.2200, L3900.2100, L3000.0375, L503.6550, L3100.5440, L3100.5850 #### [facility] [address] [place], [address] Comprehensive Metabolic Prof [facility] 10-18-2023 Albumin [Mass/Vol] 2.4 g/dL Low 3.2-5.0 [facility] Comment on above: Performed By: #### L 3300.0700, L3410.2350, L3400.3800, L503.6030, L800.1280, L100.9950, L3100.3425, L803.2200, L3900.2100, L3000.0375, L503.6550, L3100.5440, L3100.5850 #### [facility] [address] [place], [place], [id number] Albumin/Globulin [Mass ratio] 0.6 {ratio} Low 0.9-2.4 [facility] Comment on above: Performed By: #### L 3300.0700, L3410.2350, L3400.3800, L503.6030, L800.1280, L100.9950, L3100.3425, L803.2200, L3900.2100, L3000.0375, L503.6550, L3100.5440, L3100.5850 #### [facility] [address] [place], [address] ALK P 408 U/L High 45-117 [facility] Comment on above: Performed By: #### L 3300.0700, L3410.2350, L3400.3800, L503.6030, L800.1280, L100.9950, L3100.3425, L803.2200, L3900.2100, L3000.0375, L503.6550, L3100.5440, L3100.5850 #### [facility] [address] [facility] [place], [address] ALT [Catalytic activity/Vol] 267 U/L High 13-56 [facility] Comment on above: Performed By: #### L 3300.0700, L3410.2350, L3400.3800, L503.6030, L800.1280, L100.9950, L3100.3425, L803.2200, L3900.2100, L3000.0375, L503.6550, L3100.5440, L3100.5850 #### [facility] [address] [place], [address] AST [Catalytic activity/Vol] 156 U/L High 15-37 [facility] Comment on above: Performed By: #### L 3300.0700, L3410.2350, L3400.3800, L503.6030, L800.1280, L100.9950, L3100.3425, L803.2200, L3900.2100, L3000.0375, L503.6550, L3100.5440, L3100.5850 #### [facility] [address] [place], [address] Bilirubin [Mass/Vol] 9.30 mg/dL High 0.20-1.00 [facility] Comment on above: Result Comment: For patients on eltrombopag therapy, use of Dimension [place] TBIL is not recommended. Performed By: #### L 3300.0700, L3410.2350, L3400.3800, L503.6030, L800.1280, L100.9950, L3100.3425, L803.2200, L3900.2100, L3000.0375, L503.6550, L3100.5440, L3100.5850 #### [facility] [address] [place], [place], [id number] (290) BUN/CRE 15.7 RATIO Normal 10-20 [facility] Comment on above: Performed By: #### L 3300.0700, L3410.2350, L3400.3800, L503.6030, L800.1280, L100.9950, L3100.3425, L803.2200, L3900.2100, L3000.0375, L503.6550, L3100.5440, L3100.5850 #### [facility] [address] [place], [place], [id number] (783) CA,Total 9.0 mg/dL Normal 8.5-10.1 [facility] Comment on above: Performed By: #### L 3300.0700, L3410.2350, L3400.3800, L503.6030, L800.1280, L100.9950, L3100.3425, L803.2200, L3900.2100, L3000.0375, L503.6550, L3100.5440, L3100.5850 #### [facility] [address] [place], [address] Chloride [Moles/Vol] 108 mmol/L High 98-107 [facility] Comment on above: Performed By: #### L 3300.0700, L3410.2350, L3400.3800, L503.6030, L800.1280, L100.9950, L3100.3425, L803.2200, L3900.2100, L3000.0375, L503.6550, L3100.5440, L3100.5850 #### [facility] [address] [place], [address] CO2 [Moles/Vol] 20.0 mmol/L Low 21.0-32.0 [facility] Comment on above: Performed By: #### L 3300.0700, L3410.2350, L3400.3800, L503.6030, L800.1280, L100.9950, L3100.3425, L803.2200, L3900.2100, L3000.0375, L503.6550, L3100.5440, L3100.5850 #### [facility] [address] [place], [place], [id number] (053) Creatinine [Mass/Vol] 0.89 mg/dL Normal 0.55-1.02 [facility] Comment on above: Result Comment: The validity of the calculated GFR GFRAA in patients over 70 years has not been determined. Clinical correlation is essential. Performed By: #### L 3300.0700, L3410.2350, L3400.3800, L503.6030, L800.1280, L100.9950, L3100.3425, L803.2200, L3900.2100, L3000.0375, L503.6550, L3100.5440, L3100.5850 #### [facility] [address] [place], [address] ECRCL 69.09 ml/min Normal [facility] Comment on above: Performed By: #### L 3300.0700, L3410.2350, L3400.3800, L503.6030, L800.1280, L100.9950, L3100.3425, L803.2200, L3900.2100, L3000.0375, L503.6550, L3100.5440, L3100.5850 #### [facility] [address] [place], [place], [id number] EST GFR - AA 79 mL/min Normal >60 [facility] Comment on above: Result Comment: Afri can Gibraltarian GFR Calc Performed By: #### L 3300.0700, L3410.2350, L3400.3800, L503.6030, L800.1280, L100.9950, L3100.3425, L803.2200, L3900.2100, L3000.0375, L503.6550, L3100.5440, L3100.5850 #### [facility] [address] [place], [place], [id number] GAP 8 Normal 5-15 [facility] Comment on above: Performed By: #### L 3300.0700, L3410.2350, L3400.3800, L503.6030, L800.1280, L100.9950, L3100.3425, L803.2200, L3900.2100, L3000.0375, L503.6550, L3100.5440, L3100.5850 #### [facility] [address] [place], [place], [id number] GFR/1.73 sq M.predicted among non-blacks MDRD (S/P/Bld) [Vol rate/Area] 65 mL/min/{1.73_m2} Normal >60 [facility] Comment on above: Result Comment: Non- GFR Calc Performed By: #### L 3300.0700, L3410.2350, L3400.3800, L503.6030, L800.1280, L100.9950, L3100.3425, L803.2200, L3900.2100, L3000.0375, L503.6550, L3100.5440, L3100.5850 #### [facility] [address] [place], [address] Globulin (S) [Mass/Vol] 3.9 g/dL Normal 2.2-4.2 [facility] Comment on above: Performed By: #### L 3300.0700, L3410.2350, L3400.3800, L503.6030, L800.1280, L100.9950, L3100.3425, L803.2200, L3900.2100, L3000.0375, L503.6550, L3100.5440, L3100.5850 #### [facility] [address] [place], [address] Glucose [Mass/Vol] 119 mg/dL High 74-106 [facility] Comment on above: Result Comment: Fast ing Glucose result from 100 to 125 mg/dL suggests IMPAIRED HOMEOSTASIS per A.D.A. criteria. Performed By: #### L 3300.0700, L3410.2350, L3400.3800, L503.6030, L800.1280, L100.9950, L3100.3425, L803.2200, L3900.2100, L3000.0375, L503.6550, L3100.5440, L3100.5850 #### [facility] [address] [place], [address] Potassium [Moles/Vol] 3.5 mmol/L Normal 3.5-5.1 [facility] Comment on above: Performed By: #### L 3300.0700, L3410.2350, L3400.3800, L503.6030, L800.1280, L100.9950, L3100.3425, L803.2200, L3900.2100, L3000.0375, L503.6550, L3100.5440, L3100.5850 #### [facility] [address] [place], [address] Sodium [Moles/Vol] 136 mmol/L Normal 136-145 [facility] Comment on above: Performed By: #### L 3300.0700, L3410.2350, L3400.3800, L503.6030, L800.1280, L100.9950, L3100.3425, L803.2200, L3900.2100, L3000.0375, L503.6550, L3100.5440, L3100.5850 #### [facility] [address] [place], [address] T PROT 6.3 g/dL Low 6.4-8.2 [facility] Comment on above: Performed By: #### L 3300.0700, L3410.2350, L3400.3800, L503.6030, L800.1280, L100.9950, L3100.3425, L803.2200, L3900.2100, L3000.0375, L503.6550, L3100.5440, L3100.5850 #### [facility] [address] [facility] [place], [address] Urea nitrogen [Mass/Vol] 14 mg/dL Normal 7-18 [facility] Comment on above: Performed By: #### L 3300.0700, L3410.2350, L3400.3800, L503.6030, L800.1280, L100.9950, L3100.3425, L803.2200, L3900.2100, L3000.0375, L503.6550, L3100.5440, L3100.5850 #### [facility] [address] [place], [address] Rebecca-Peters virus (EBV) vir al capsid antigen (VCA) IgG antibody assayOrdered By: Patric Polanco on 10-18-2023 EBV capsid IgG IA Ql (S donor) > 600.0 U/mL 0.0-17.9 [facility] Comment on above: Negative <18.0 Equiv ocal 18.0 - 21.9 Positive >21.9 Immunoglobulin M measurement Ordered By: Patric Ploanco on 10-18-2023 IgM (U) [Mass/Vol] 104 mg/dL 26-217 [facility] Interpretation of serum or p lasma protein pattern by immunofixation (narrative resultOrdered By: Patric Polanco on 10-18-2023 Protein Fractions Immunofixation Yusuf [Interp] Not Observed g/dL Not Observed [facility] - Chemistry and C hemistry - challengeOrdered By: Patric Polanco on 10-18-2023 Transferrin [Mass/Vol] 249 mg/dL 192-364 [facility] Comment on above: Performed at: [address] [id number] Director: Brijesh Posadas PhD, Phone: [phone] MR/PN.Anrdew 10-18-2023 MR/PN.TATIANA [facility] Medical Records Department [address] [place] [address] Progress Note - 10/18/23 0700 MR#: [id number] Acct: [id number] Name: PENNY MCKEON Rep #: [id number] : 1945 78 From: Patric Polanco DO PCP: Dr. Laura Bowden, DO Status:ADM IN Location: MS3 [id number] Subjective Subjective Patient is scheduled to go [...] (Auto) 60.9, Lymph % (Auto) 17.0 L, Hanson % (Auto) 8.3, Eos % (Auto) 9.6 [...] we will wait for liver biopsy. 10/18/23 6385 Cosigner Signature (if applicable): CC: Signed Normal [facility] No Panel InformationOrdered By: Patric Friend on 10-18-2023 Addendum Document Comment . [facility] Comment on above: Protein electrophore sis scan will follow via computer,mail, or shampoo technician delivery. Anti-Gliadin IgA Antibody 5 units 0-19 [facility] Comment on above: Negative 0 - 19 Weak Positive 20 - 30 Moderate to Strong Positive >30 Anti-Gliadin IgG Antibody 2 units 0-19 [facility] Comment on above: Negative 0 - 19 Weak Positive 20 - 30 Moderate to Strong Positive >30 Centromere B Antibody <0.2 AI 0.0-0.9 [facility] Endomysial IgA Antibody Negative Negative [facility] Comment on above: Note: Specimen is ic teric. Hepatitis A IgM Antibody Negative Negative [facility] Hepatitis B Core IgM Antibody Negative Negative [facility] Hepatitis C Antibody (EIA) Non-Reactive Non Reactive [facility] Hepatitis C Antibody Comment Comment . [facility] Comment on above: Not infected with HC V unless early or acute infection issuspected (which may be delayed in an immunocompromisedindividual), or other evidence exists to indicate HCVinfection. JANETTE-1 Antibody <0.2 AI 0.0-0.9 [facility] FLYING SQUAD WORKER Antibody <0.2 AI 0.0-0.9 [facility] Tissue Transglutaminase IgG Ab <2 U/mL 0-5 [facility] Comment on above: Negative 0 - 5 Weak Positive 6 - 9 Positive >9 Operative Reporton Operative Report [facility] Medical Records Department [address] [place] [address] Operative Report 10/18/23 1307 MR#: [id number] Acct: [id number] Name: PENNY MCKEON Rep #: [id number] : 1945 78 From: Caden Roy MD PCP: Dr. Laura Bowden, DO Status:DIS IN [place] [facility] [id number] Report of Operation Date of Procedure: 10/18/23 [...] region of the gallbladder Surgeon: Caden Roy lace finisher: Sanford Stoner lace finisher: Qing Bernstein Type of Anesthesia: General/Supplemental Anesthesiologist: [...] fashion we elected to place a 15 Italian round Loki drain adjacent to the gallbladder [...] Alvarenga suture passer under laparoscopic visualization with nkzakp-ku-ggmst technique. Satisfied with this suture placement, pneumoperitoneum was evacuated and the fascial sutures were tied. A total of 30 mL of anesthetic wa (more content not included)... Normal [facility] SS-B IgG antibody assayOrder ed By: Patric Polanco on 10-18-2023 Sjogrens syndrome-B extractable nuclear IgG Qn (S) < 0.2 AI 0.0-0.9 [facility] Serum DNA double strand anti body assay (units/volume)Ordered By: Patric Polanco on 10-18-2023 DNA double strand Ab Qn (S) [IU]/mL 0-9 [facility] Comment on above: Negative <5 Equivoca l 5 - 9 Positive >9 Serum Rebecca Peters virus cap marge IgM antibody assay (units/volume)Ordered By: Patric Polanco on 10-18-2023 EBV capsid IgM Qn (S) [arb'U]/mL 0.0-35.9 [facility] Comment on above: Negative <36.0 Equiv ocal 36.0 - 43.9 Positive >43.9 Serum Rebecca Peters virus nuc lear IgG antibody assay (units/volume)Ordered By: Patric Polanco on 10-18-2023 EBV nuclear IgG Qn (S) 37.6 U/mL 0.0-17.9 [facility] Comment on above: Negative <18.0 Equiv ocal 18.0 - 21.9 Positive >21.9 Serum Scl-70 antibody assay (units/volume)Ordered By: Patric Polanco on 10-18-2023 SCL-70 extractable nuclear Ab Qn (S) <0.2 AI 0.0-0.9 [facility] Serum ufuou-9-yclovqxrdxm me asurementOrdered By: Patric Polanco on 10-18-2023 Alpha 1 antitrypsin [Mass/Vol] 206 mg/dL 101-187 [facility] Comment on above: Performed at: [place] [id number] Director: Brijesh Posadas PhD, Phone: [phone] Serum useho-9-ctgckiny measu rement by electrophoresisOrdered By: Patric Polanco on 10-18-2023 Alpha 1 globulin Elph [Mass/Vol] 0.3 g/dL 0.0-0.4 [facility] Alpha 1 globulin Elph [Mass/Vol] 1.0 g/dL 0.4-1.0 [facility] Serum mitochondria antibody detectionOrdered By: Patric Polanco on 10-18-2023 Mitochondria Ab Ql (S) <20.0 Units 0.0-20.0 [facility] Comment on above: Negative 0.0 - 20.0 Equivocal 20.1 - 24.9 Positive >24.9Mitochondrial (M2) Antibodies are found in 90-96% ofpatients with primary biliary cirrhosis. Serum or plasma IgA measurem ent (mass/volume)Ordered By: Patric Polanco on 10-18-2023 IgA [Mass/Vol] 261 mg/dL 64-422 [facility] Serum or plasma IgG measurem ent (mass/volume)Ordered By: Patric Polanco on 10-18-2023 IgG [Mass/Vol] 691 mg/dL 586-1602 [facility] Serum or plasma actin IgG an tibody assay (units/volume)Ordered By: Patric Polanco on 10-18-2023 Actin IgG Qn 2 Units 0-19 [facility] Comment on above: Negative 0 - 19 Weak positive 20 - 30 Moderate to strong positive >30 Actin Antibodies are found in 52-85% of patients with autoimmune hepatitis or chronic active hepatitis and in 22% of patients with primary biliary cirrhosis. Serum or plasma beta globuli n measurement by electrophoresis (mass/volume)Ordered By: Patric Polanco on 10-18-2023 Beta globulin Elph [Mass/Vol] 1.1 g/dL 0.7-1.3 [facility] Serum or plasma gamma globul in measurement by electrophoresis (mass/volume)Ordered By: Patric Polanco on 10-18-2023 Gamma globulin Elph [Mass/Vol] 0.6 g/dL 0.4-1.8 [facility] Serum or plasma hepatitis B virus surface antigen detection by immunoassayOrdered By: Patric Polanco on 10-18-2023 HBV surface Ag IA Ql Negative Negative [facility] Serum or plasma immunoelectr ophoresis interpretation (nominal result)Ordered By: Patric Polanco on 10-18-2023 Interpretation IEP [Interp] Comment . [facility] Comment on above: No monoclonality det ected. Serum tissue transglutaminas e IgA antibody assay (units/volume)Ordered By: Patric Polanco on 10-18-2023 tTG IgA Qn (S) <2 U/mL 0-3 [facility] Comment on above: Negative 0 - 3 Weak Positive 4 - 10 Positive >10 Tissue Transglutaminase (tTG) has been identified as the endomysial antigen. Studies have demonstr- ated that endomysial IgA antibodies have over 99% specificity for gluten sensitive enteropathy. Lawrence antibody assayOrdered By: Patric Polanco on 10-18-2023 Lawrence extractable nuclear Ab (S) [Titer] <0.2 AI 0.0-0.9 [facility] Thin prep Papanicolaou smear with manual screeningOrdered By: Patric Polanco on 10-18-2023 Thin prep Papanicolaou smear with manual screening Comment . [facility] Comment on above: EBV Interpretation C Libia: [...] Papanicolaou smear with manual screening 0.9 0.7-1.7 [facility] Total protein bloodOrdered B y: Patric Polanco on 10-18-2023 Protein [Mass/Vol] 5.5 g/dL 6.0-8.5 [facility] Trichrome (control)on 2023 Trichrome (control) Patient Age/Sex Loca tion Account Attending Physician PENNY MCKEON 78/F MS3 [id number] Dr. Tirso Friend MD Specimen: [id number] Received: 10/19/23 Status: ROLANDO Romeo Num: [id number] Spec Type: CARMELO Hardwick Dr: Dr. Caden [...] Account Attending Physician PENNY MCKEON 78/F MS3 [id number] Dr. Tirso Friend MD gallstones. The specimen consists of multiple fragments of brownish-black stones mixed with sludge material and blood clot measuring in aggregate 5.0 x 5.0 x 1.0 cm. No obvious gallbladder wall tissue is identified in the specimen. Claims Configuration Analyst tissue predominantly consists of blood clot mixed with sludge material is submitted in one cassette. / SJ:rg 10/19/2023 TC:5 CPT: 09424, 71240, 78102 x5 Patient Age/Sex Location Account Attending Physician PENNY MCKEON 78/F MS3 [id number] Dr. Tirso Friend MD Signed (signature on file) Dr. Rao Sanchez MD 10/20/23 1239 Normal [facility] Comment on above: Performed By: #### P TRI ####[facility] [address] [place], [place], [id number] Basophil percentageOrdered B y: Dennise Batres on 10-17-2023 Basophil percentage 3.4 mg/dL 2.5-4.9 [place] Bedside Glucoseon 10-17-2023 FINGERSTICK GLU 104 mg/dL Normal 74-106 [facility] Comment on above: Result Comment: JORDAN GEMENT OF PATIENT CARE PER NURSING PROTOCOL Performed By: #### L 3300.0700, L3410.2350, L3400.3800, L503.6030, L800.1280, L100.9950, L3100.3425, L803.2200, L3900.2100, L3000.0375, L503.6550, L3100.5440, L3100.5850 #### [facility] [address] [place], [address] FINGERSTICK GLU 126 mg/dL High 74-106 [facility] Comment on above: Result Comment: JORDAN GEMENT OF PATIENT CARE PER NURSING PROTOCOL Performed By: #### L 3300.0700, L3410.2350, L3400.3800, L503.6030, L800.1280, L100.9950, L3100.3425, L803.2200, L3900.2100, L3000.0375, L503.6550, L3100.5440, L3100.5850 #### [facility] [address] [place], [place], [id number] FINGERSTICK GLU 151 mg/dL High 74-106 [facility] Comment on above: Result Comment: JORDAN AMAYA OF PATIENT CARE PER NURSING PROTOCOL Performed By: #### L 501.080 ####[facility] [address] [place], [address] CBC W/Diff, Automatedon 10-03 Absolute Lymph 1.03 X10 3/uL Normal 0.83-4.51 [facility] Comment on above: Performed By: #### L 100.0100, L500.4050, L501.5200, L501.2300 ####[facility] [address] [place], [address] Absolute Neut 6.0 X10 3/uL Normal 2.0-7.7 [facility] Comment on above: Performed By: #### L 100.0100, L500.4050, L501.5200, L501.2300 ####[facility] [address] [place], [address] Basophils/100 WBC (Bld) 0.5 % Normal 0-1 [facility] Comment on above: Performed By: #### L 100.0100, L500.4050, L501.5200, L501.2300 ####[facility] [address] [place], [address] Eosinophils/100 WBC (Bld) 9.0 % High 0-5 [facility] Comment on above: Performed By: #### L 100.0100, L500.4050, L501.5200, L501.2300 ####[facility] [address] [place], [address] Erythrocyte distribution width (RBC) [Ratio] 15.1 % High 11.6-14.6 [facility] Comment on above: Performed By: #### L 100.0100, L500.4050, L501.5200, L501.2300 ####[facility] [address] [place], [address] Hematocrit (Bld) [Volume fraction] 35.0 % Low 37-47 [facility] Comment on above: Performed By: #### L 100.0100, L500.4050, L501.5200, L501.2300 ####[facility] [address] [place], [address] Hemoglobin (Bld) [Mass/Vol] 11.7 g/dL Low 12.0-15.0 [facility] Comment on above: Performed By: #### L 100.0100, L500.4050, L501.5200, L501.2300 ####[facility] [address] [place], [address] IG% 1.700 High 0.0-0.9 [facility] Comment on above: Result Comment: IG% - Immature Granulocytes (promyelocytes, myelocytes and metamyelocytes) > 1% indicates that a LEFT SHIFT is Present. Performed By: #### L 100.0100, L500.4050, L501.5200, L501.2300 ####[facility] [address] [place], [address] Lymphocytes/100 WBC (Bld) 11.9 % Low 19-41 [facility] Comment on above: Performed By: #### L 100.0100, L500.4050, L501.5200, L501.2300 ####[facility] [address] [place], [address] MCH (RBC) [Entitic mass] 31.3 pg Normal 27.0-32.0 [facility] Comment on above: Performed By: #### L 100.0100, L500.4050, L501.5200, L501.2300 ####[facility] [address] [place], [address] MCHC (RBC) [Mass/Vol] 33.4 g/dL Normal 32-36 [facility] Comment on above: Performed By: #### L 100.0100, L500.4050, L501.5200, L501.2300 ####[facility] [address] [place], [address] MCV (RBC) [Entitic vol] 93.6 fL Normal 81-99 [facility] Comment on above: Performed By: #### L 100.0100, L500.4050, L501.5200, L501.2300 ####[facility] [address] [place], [address] Monocytes/100 WBC (Bld) 7.7 % Normal 0-10 [facility] Comment on above: Performed By: #### L 100.0100, L500.4050, L501.5200, L501.2300 ####[facility] [address] [place], [address] Neutrophils/100 WBC (Bld) 69.2 % Normal 47-70 [facility] Comment on above: Performed By: #### L 100.0100, L500.4050, L501.5200, L501.2300 ####[facility] [address] [place], [address] Nucleated RBC (Bld) [#/Vol] 0 10*3/uL Normal 0-5 [facility] Comment on above: Performed By: #### L 100.0100, L500.4050, L501.5200, L501.2300 ####[facility] [address] [place], [address] Platelet mean volume (Bld) [Entitic vol] 9.3 fL Normal 6.2-12.0 [facility] Comment on above: Performed By: #### L 100.0100, L500.4050, L501.5200, L501.2300 ####[facility] [address] [place], [address] Platelets (Bld) [#/Vol] 145 10*3/uL Low 150-450 [facility] Comment on above: Performed By: #### L 100.0100, L500.4050, L501.5200, L501.2300 ####[facility] [address] [place], [address] RBC (Bld) [#/Vol] 3.74 10*6/uL Low 4.2-5.4 [place] Comment on above: Performed By: #### L 100.0100, L500.4050, L501.5200, L501.2300 ####[facility] [address] [place], [address] RDW SD 51.9 fl High 35.1-43.9 [facility] Comment on above: Performed By: #### L 100.0100, L500.4050, L501.5200, L501.2300 ####[facility] [address] [place], [address] WBC (Bld) [#/Vol] 8.7 10*3/uL Normal 4.4-11.0 [facility] Comment on above: Performed By: #### L 100.0100, L500.4050, L501.5200, L501.2300 ####[facility] [address] [place], [address] Comprehensive Metabolic Prof [facility] 10-17-2023 Albumin [Mass/Vol] 2.4 g/dL Low 3.2-5.0 [facility] Comment on above: Performed By: #### L 100.0100, L500.4050, L501.5200, L501.2300 ####[facility] [address] [place], [address] Albumin/Globulin [Mass ratio] 0.6 {ratio} Low 0.9-2.4 [facility] Comment on above: Performed By: #### L 100.0100, L500.4050, L501.5200, L501.2300 ####[facility] [address] [place], [address] ALK P 406 U/L High 45-117 [facility] Comment on above: Performed By: #### L 100.0100, L500.4050, L501.5200, L501.2300 ####[facility] [address] [place], [address] ALT [Catalytic activity/Vol] 307 U/L High 13-56 [facility] Comment on above: Performed By: #### L 100.0100, L500.4050, L501.5200, L501.2300 ####[facility] [address] [place], [address] AST [Catalytic activity/Vol] 281 U/L High 15-37 [facility] Comment on above: Performed By: #### L 100.0100, L500.4050, L501.5200, L501.2300 ####[facility] [address] [place], [address] Bilirubin [Mass/Vol] 11.00 mg/dL High 0.20-1.00 [facility] Comment on above: Result Comment: For patients on eltrombopag therapy, use of Dimension [place] TBIL is not recommended. Performed By: #### L 100.0100, L500.4050, L501.5200, L501.2300 ####[facility] [address] [place], [address] BUN/CRE 20.9 RATIO High 10-20 [facility] Comment on above: Performed By: #### L 100.0100, L500.4050, L501.5200, L501.2300 ####[facility] [address] [place], [address] CA,Total 8.9 mg/dL Normal 8.5-10.1 [facility] Comment on above: Performed By: #### L 100.0100, L500.4050, L501.5200, L501.2300 ####[facility] [address] [place], [address] Chloride [Moles/Vol] 108 mmol/L High 98-107 [facility] Comment on above: Performed By: #### L 100.0100, L500.4050, L501.5200, L501.2300 ####[facility] [address] [place], [address] CO2 [Moles/Vol] 21.0 mmol/L Normal 21.0-32.0 [facility] Comment on above: Performed By: #### L 100.0100, L500.4050, L501.5200, L501.2300 ####[facility] [address] [place], [address] Creatinine [Mass/Vol] 1.15 mg/dL High 0.55-1.02 [facility] Comment on above: Result Comment: Mode rate Icterus, Result may be falsely decreased. The validity of the calculated GFR GFRAA in patients over 70 years has not been determined. Clinical correlation is essential. Performed By: #### L 100.0100, L500.4050, L501.5200, L501.2300 ####[facility] [address] [place], [address] ECRCL 53.39 ml/min Normal [facility] Comment on above: Performed By: #### L 100.0100, L500.4050, L501.5200, L501.2300 ####[facility] [address] [place], [address] EST GFR - AA 59 mL/min Low >60 [facility] Comment on above: Result Comment: Afri can Gibraltarian GFR Calc Performed By: #### L 100.0100, L500.4050, L501.5200, L501.2300 ####[facility] [address] [place], [address] GAP 8 Normal 5-15 [facility] Comment on above: Performed By: #### L 100.0100, L500.4050, L501.5200, L501.2300 ####[facility] [address] [place], [address] GFR/1.73 sq M.predicted among non-blacks MDRD (S/P/Bld) [Vol rate/Area] 49 mL/min/{1.73_m2} Low >60 [facility] Comment on above: Result Comment: Non- GFR Calc Performed By: #### L 100.0100, L500.4050, L501.5200, L501.2300 ####[facility] [address] [place], [address] Globulin (S) [Mass/Vol] 3.7 g/dL Normal 2.2-4.2 [facility] Comment on above: Performed By: #### L 100.0100, L500.4050, L501.5200, L501.2300 ####[facility] [address] [place], [address] Glucose [Mass/Vol] 136 mg/dL High 74-106 [facility] Comment on above: Result Comment: Fast ing Glucose result greater than or equal to 126 mg/dL suggests DIABETES MELLITUS per A.D.A. criteria. Performed By: #### L 100.0100, L500.4050, L501.5200, L501.2300 ####[facility] [address] [place], [address] Potassium [Moles/Vol] 3.5 mmol/L Normal 3.5-5.1 [facility] Comment on above: Performed By: #### L 100.0100, L500.4050, L501.5200, L501.2300 ####[facility] [address] [place], [address] Sodium [Moles/Vol] 137 mmol/L Normal 136-145 [facility] Comment on above: Performed By: #### L 100.0100, L500.4050, L501.5200, L501.2300 ####[facility] [address] [place], [address] T PROT 6.1 g/dL Low 6.4-8.2 [facility] Comment on above: Result Comment: Mode rate Icterus, Result may be falsely decreased. Performed By: #### L 100.0100, L500.4050, L501.5200, L501.2300 ####[facility] [address] [place], [address] Urea nitrogen [Mass/Vol] 24 mg/dL High 7-18 [facility] Comment on above: Performed By: #### L 100.0100, L500.4050, L501.5200, L501.2300 ####[facility] [address] [place], [address] Ferritinon 10-17-2023 Ferritin [Mass/Vol] 321 ng/mL High 8-252 [place] Comment on above: Result Comment: Mode rate Icterus, Result may be falsely decreased. Performed By: #### L 3300.0700, L3410.2350, L3400.3800, L503.6030, L800.1280, L100.9950, L3100.3425, L803.2200, L3900.2100, L3000.0375, L503.6550, L3100.5440, L3100.5850 #### [facility] [address] [place], [address] Hemoglobin in reticulocytes (mass per reticulocyte)Ordered By: Patric Polanco on 10-17-2023 Hemoglobin (Reticulocytes) [Entitic mass] 35.3 pg 30-35 [facility] Iron measurement (mass/mass) Ordered By: Patric Polanco on 10-17-2023 Iron (Unsp spec) [Mass/Mass] 98 ug/dL 50-170 [facility] Iron+Iron Binding Capacityon 10-17-2023 Iron [Mass/Vol] 98 ug/dL Normal 50-170 [facility] Comment on above: Performed By: #### L 3300.0700, L3410.2350, L3400.3800, L503.6030, L800.1280, L100.9950, L3100.3425, L803.2200, L3900.2100, L3000.0375, L503.6550, L3100.5440, L3100.5850 #### [facility] [address] [place], [address] IRON SATURATION 33.4 Normal 15.0-55.0 [facility] Comment on above: Performed By: #### L 3300.0700, L3410.2350, L3400.3800, L503.6030, L800.1280, L100.9950, L3100.3425, L803.2200, L3900.2100, L3000.0375, L503.6550, L3100.5440, L3100.5850 #### [facility] [address] [place], [place], [address] TIBC 293 ug/dL Normal 250-450 [facility] Comment on above: Performed By: #### L 3300.0700, L3410.2350, L3400.3800, L503.6030, L800.1280, L100.9950, L3100.3425, L803.2200, L3900.2100, L3000.0375, L503.6550, L3100.5440, L3100.5850 #### [facility] [address] [place], [address] Laboratory - Chemistry and C hemistry - challengeOrdered By: Dennise Batres on 10-17-2023 Magnesium [Mass/Vol] 2.2 mg/dL 1.6-2.6 [facility] MR/CON.PCM.GIon 10-17-2023 MR/CON.PCM.GI [facility] Medical Records Department [address] [place] [address] Consultation - GI 10/17/23 1610 MR#: [id number] Acct: [id number] Name: PENNY MCKEON Rep #: [id number] : 1945 78 From: Patric Friend DO PCP: Dr. Laura Bowden, DO Status:ADM IN [place] [facility] [id number] HPI Consult Data Date of Consult: 10/17/23 [...] was no choledocholithiasis seen on either image. [facility] Medical History Allergic rhinitis Anxiety and depression [...] knee arthroscopy (more content not included)... Normal [facility] MRCP Abdomen without Contras ton 10-17-2023 MRCP Abdomen without Contrast [facility] Imaging Services [address] [place] [address] MRCP Abdomen without Contrast MR#: [id number] Acct: [id number] Name: PENNY MCKEON Rep #: [id number] : 1945 F 78 From: Heath Stauffer MD PCP: Dr. Laura Bowden, Status: ADM IN Study: MRCP Abdomen without Contrast Date of Exam: Exam# [id number] Ordering Dr: Caden Roy MD [id number] EXAM: MR ABDOMEN WITHOUT INTRAVENOUS CONTRAST, MRCP [...] Laura Bowden DO; Dr. Caden Roy MD Head Teller: Signed Normal [facility] Magnesiumon 10-17-2023 Magnesium [Mass/Vol] 2.2 mg/dL Normal 1.6-2.6 [facility] Comment on above: Performed By: #### L 100.0100, L500.4050, L501.5200, L501.2300 ####[facility] [address] [place], [place], [id number] No Panel InformationOrdered By: Patric Friend on 10-17-2023 Immature Reticulocyte Fraction 15.40 % 3.00-15.90 [facility] Reticulocyte Count 1.29 % 0.5-1.5 [facility] Total Iron Binding Capacity 293 ug/dL 250-450 [facility] Phosphoruson 10-17-2023 Phosphate [Mass/Vol] 3.4 mg/dL Normal 2.5-4.9 [facility] Comment on above: Performed By: #### L 100.0100, L500.4050, L501.5200, L501.2300 ####[facility] [address] [place], [address] Retic Panelon 10-17-2023 IM RET FRACTION 15.40 Normal 3.00-15.90 [facility] Comment on above: Performed By: #### L 3300.0700, L3410.2350, L3400.3800, L503.6030, L800.1280, L100.9950, L3100.3425, L803.2200, L3900.2100, L3000.0375, L503.6550, L3100.5440, L3100.5850 #### [facility] [address] [place], [place], [id number] RET-HE 35.3 pg High 30-35 [facility] Comment on above: Performed By: #### L 3300.0700, L3410.2350, L3400.3800, L503.6030, L800.1280, L100.9950, L3100.3425, L803.2200, L3900.2100, L3000.0375, L503.6550, L3100.5440, L3100.5850 #### [facility] [address] [place], [place], [id number] Retic Count 1.29 Normal 0.5-1.5 [facility] Comment on above: Performed By: #### L 3300.0700, L3410.2350, L3400.3800, L503.6030, L800.1280, L100.9950, L3100.3425, L803.2200, L3900.2100, L3000.0375, L503.6550, L3100.5440, L3100.5850 #### [facility] [address] [place], [address] Serum or plasma ferritin laura surement (mass/volume)Ordered By: Patric Polanco on 10-17-2023 Ferritin [Mass/Vol] 321 ng/mL 8-252 [place] Comment on above: Moderate Icterus, Re sult may be falsely decreased. Serum or plasma iron saturat ion measurement (mass fraction)Ordered By: Patric Polanco on 10-17-2023 Iron saturation [Mass fraction] 33.4 % 15.0-55.0 [facility] Urine Cultureon 10-17-2023 URC Klebsiella aerogenes Wilson Count 11,000-25,000 Klebsiella aerogenes: REACTION ceFAZolin Islt LOUISA R Cefepime Islt LOUISA <=0.12 S cefTRIAXone Islt LOUISA <=0.25 S Ciprofloxacin Islt LOUISA <=0.25 S Ertapenem Islt LOUISA <=0.12 S Gentamicin Islt LOUISA <=1 S Imipenem Islt LOUISA <=0.25 S levoFLOXacin Islt LOUISA <=0.12 S Nitrofurantoin Islt LOUISA 128 R Tobramycin Islt LOUISA <=1 S TMP SMX Islt LOUISA <=20 S Normal [facility] Comment on above: Performed By: #### M 100.2200 ####[facility] [address] [facility] [place], [address] Bedside Glucoseon 10-16-2023 FINGERSTICK GLU 210 mg/dL High 74-106 [facility] Comment on above: Result Comment: JORDAN GEMENT OF PATIENT CARE PER NURSING PROTOCOL Performed By: #### L 3300.0700, L3410.2350, L3400.3800, L503.6030, L800.1280, L100.9950, L3100.3425, L803.2200, L3900.2100, L3000.0375, L503.6550, L3100.5440, L3100.5850 #### [facility] [address] [place], [place], [id number] FINGERSTICK GLU 114 mg/dL High 74-106 [facility] Comment on above: Result Comment: JORDAN GEMENT OF PATIENT CARE PER NURSING PROTOCOL Performed By: #### L 3300.0700, L3410.2350, L3400.3800, L503.6030, L800.1280, L100.9950, L3100.3425, L803.2200, L3900.2100, L3000.0375, L503.6550, L3100.5440, L3100.5850 #### [facility] [address] [place], [address] FINGERSTICK GLU 125 mg/dL High 74-106 [facility] Comment on above: Result Comment: JORDAN GEMENT OF PATIENT CARE PER NURSING PROTOCOL Performed By: #### L 3300.0700, L3410.2350, L3400.3800, L503.6030, L800.1280, L100.9950, L3100.3425, L803.2200, L3900.2100, L3000.0375, L503.6550, L3100.5440, L3100.5850 #### [facility] [address] [place], [place], [id number] [phone] FINGERSTICK GLU 119 mg/dL High 74-106 [facility] Comment on above: Result Comment: JORDAN GEMENT OF PATIENT CARE PER NURSING PROTOCOL Performed By: #### L 501.080 ####[facility] [address] [place], [place], [id number] CBC W/Diff, Automatedon 10-03 Absolute Lymph 1.13 X10 3/uL Normal 0.83-4.51 [facility] Comment on above: Performed By: #### L 3300.0700, L3410.2350, L3400.3800, L503.6030, L800.1280, L100.9950, L3100.3425, L803.2200, L3900.2100, L3000.0375, L503.6550, L3100.5440, L3100.5850 #### [facility] [address] [place], [place], [id number] (663) Absolute Neut 11.6 X10 3/uL High 2.0-7.7 [facility] Comment on above: Performed By: #### L 3300.0700, L3410.2350, L3400.3800, L503.6030, L800.1280, L100.9950, L3100.3425, L803.2200, L3900.2100, L3000.0375, L503.6550, L3100.5440, L3100.5850 #### [facility] [address] [place], [address] Basophils/100 WBC (Bld) 0.5 % Normal 0-1 [facility] Comment on above: Performed By: #### L 3300.0700, L3410.2350, L3400.3800, L503.6030, L800.1280, L100.9950, L3100.3425, L803.2200, L3900.2100, L3000.0375, L503.6550, L3100.5440, L3100.5850 #### [facility] [address] [place], [place], [id number] (153) Eosinophils/100 WBC (Bld) 6.0 % High 0-5 [facility] Comment on above: Performed By: #### L 3300.0700, L3410.2350, L3400.3800, L503.6030, L800.1280, L100.9950, L3100.3425, L803.2200, L3900.2100, L3000.0375, L503.6550, L3100.5440, L3100.5850 #### [facility] [address] [place], [address] Erythrocyte distribution width (RBC) [Ratio] 14.6 % Normal 11.6-14.6 [facility] Comment on above: Performed By: #### L 3300.0700, L3410.2350, L3400.3800, L503.6030, L800.1280, L100.9950, L3100.3425, L803.2200, L3900.2100, L3000.0375, L503.6550, L3100.5440, L3100.5850 #### [facility] [address] [place], [place], [id number] Hematocrit (Bld) [Volume fraction] 35.9 % Low 37-47 [facility] Comment on above: Performed By: #### L 3300.0700, L3410.2350, L3400.3800, L503.6030, L800.1280, L100.9950, L3100.3425, L803.2200, L3900.2100, L3000.0375, L503.6550, L3100.5440, L3100.5850 #### [facility] [address] [place], [address] Hemoglobin (Bld) [Mass/Vol] 12.0 g/dL Normal 12.0-15.0 [facility] Comment on above: Performed By: #### L 3300.0700, L3410.2350, L3400.3800, L503.6030, L800.1280, L100.9950, L3100.3425, L803.2200, L3900.2100, L3000.0375, L503.6550, L3100.5440, L3100.5850 #### [facility] [address] [place], [address] IG% 1.300 High 0.0-0.9 [facility] Comment on above: Result Comment: IG% - Immature Granulocytes (promyelocytes, myelocytes and metamyelocytes) > 1% indicates that a LEFT SHIFT is Present. Performed By: #### L 3300.0700, L3410.2350, L3400.3800, L503.6030, L800.1280, L100.9950, L3100.3425, L803.2200, L3900.2100, L3000.0375, L503.6550, L3100.5440, L3100.5850 #### [facility] [address] [place], [address] Lymphocytes/100 WBC (Bld) 7.6 % Low 19-41 [facility] Comment on above: Performed By: #### L 3300.0700, L3410.2350, L3400.3800, L503.6030, L800.1280, L100.9950, L3100.3425, L803.2200, L3900.2100, L3000.0375, L503.6550, L3100.5440, L3100.5850 #### [facility] [address] [facility] [place], [address] MCH (RBC) [Entitic mass] 31.1 pg Normal 27.0-32.0 [facility] Comment on above: Performed By: #### L 3300.0700, L3410.2350, L3400.3800, L503.6030, L800.1280, L100.9950, L3100.3425, L803.2200, L3900.2100, L3000.0375, L503.6550, L3100.5440, L3100.5850 #### [facility] [address] [place], [address] MCHC (RBC) [Mass/Vol] 33.4 g/dL Normal 32-36 [facility] Comment on above: Performed By: #### L 3300.0700, L3410.2350, L3400.3800, L503.6030, L800.1280, L100.9950, L3100.3425, L803.2200, L3900.2100, L3000.0375, L503.6550, L3100.5440, L3100.5850 #### [facility] [address] [place], [address] MCV (RBC) [Entitic vol] 93.0 fL Normal 81-99 [facility] Comment on above: Performed By: #### L 3300.0700, L3410.2350, L3400.3800, L503.6030, L800.1280, L100.9950, L3100.3425, L803.2200, L3900.2100, L3000.0375, L503.6550, L3100.5440, L3100.5850 #### [facility] [address] [place], [address] Monocytes/100 WBC (Bld) 6.7 % Normal 0-10 [facility] Comment on above: Performed By: #### L 3300.0700, L3410.2350, L3400.3800, L503.6030, L800.1280, L100.9950, L3100.3425, L803.2200, L3900.2100, L3000.0375, L503.6550, L3100.5440, L3100.5850 #### [facility] [address] [facility] [place], [address] Neutrophils/100 WBC (Bld) 77.9 % High 47-70 [facility] Comment on above: Performed By: #### L 3300.0700, L3410.2350, L3400.3800, L503.6030, L800.1280, L100.9950, L3100.3425, L803.2200, L3900.2100, L3000.0375, L503.6550, L3100.5440, L3100.5850 #### [facility] [address] [place], [address] Nucleated RBC (Bld) [#/Vol] 0 10*3/uL Normal 0-5 [facility] Comment on above: Performed By: #### L 3300.0700, L3410.2350, L3400.3800, L503.6030, L800.1280, L100.9950, L3100.3425, L803.2200, L3900.2100, L3000.0375, L503.6550, L3100.5440, L3100.5850 #### [facility] [address] [place], [address] Platelet mean volume (Bld) [Entitic vol] 10.0 fL Normal 6.2-12.0 [facility] Comment on above: Performed By: #### L 3300.0700, L3410.2350, L3400.3800, L503.6030, L800.1280, L100.9950, L3100.3425, L803.2200, L3900.2100, L3000.0375, L503.6550, L3100.5440, L3100.5850 #### [facility] [address] [place], [address] Platelets (Bld) [#/Vol] 139 10*3/uL Low 150-450 [facility] Comment on above: Performed By: #### L 3300.0700, L3410.2350, L3400.3800, L503.6030, L800.1280, L100.9950, L3100.3425, L803.2200, L3900.2100, L3000.0375, L503.6550, L3100.5440, L3100.5850 #### [facility] [address] [place], [place], [id number] (607) RBC (Bld) [#/Vol] 3.86 10*6/uL Low 4.2-5.4 [place] Comment on above: Performed By: #### L 3300.0700, L3410.2350, L3400.3800, L503.6030, L800.1280, L100.9950, L3100.3425, L803.2200, L3900.2100, L3000.0375, L503.6550, L3100.5440, L3100.5850 #### [facility] [address] [place], [address] RDW SD 49.7 fl High 35.1-43.9 [facility] Comment on above: Performed By: #### L 3300.0700, L3410.2350, L3400.3800, L503.6030, L800.1280, L100.9950, L3100.3425, L803.2200, L3900.2100, L3000.0375, L503.6550, L3100.5440, L3100.5850 #### [facility] [address] [place], [address] WBC (Bld) [#/Vol] 14.9 10*3/uL High 4.4-11.0 [place] Comment on above: Performed By: #### L 3300.0700, L3410.2350, L3400.3800, L503.6030, L800.1280, L100.9950, L3100.3425, L803.2200, L3900.2100, L3000.0375, L503.6550, L3100.5440, L3100.5850 #### [facility] [address] [place], [address] Comprehensive Metabolic Prof ilon 10-16-2023 Albumin [Mass/Vol] 2.5 g/dL Low 3.2-5.0 [facility] Comment on above: Performed By: #### L 3300.0700, L3410.2350, L3400.3800, L503.6030, L800.1280, L100.9950, L3100.3425, L803.2200, L3900.2100, L3000.0375, L503.6550, L3100.5440, L3100.5850 #### [facility] [address] [place], [address] Albumin/Globulin [Mass ratio] 0.7 {ratio} Low 0.9-2.4 [facility] Comment on above: Performed By: #### L 3300.0700, L3410.2350, L3400.3800, L503.6030, L800.1280, L100.9950, L3100.3425, L803.2200, L3900.2100, L3000.0375, L503.6550, L3100.5440, L3100.5850 #### [facility] [address] [place], [place], [address] ALK P 349 U/L High 45-117 [facility] Comment on above: Performed By: #### L 3300.0700, L3410.2350, L3400.3800, L503.6030, L800.1280, L100.9950, L3100.3425, L803.2200, L3900.2100, L3000.0375, L503.6550, L3100.5440, L3100.5850 #### [facility] [address] [place], [place], [id number] ALT [Catalytic activity/Vol] 265 U/L High 13-56 [facility] Comment on above: Performed By: #### L 3300.0700, L3410.2350, L3400.3800, L503.6030, L800.1280, L100.9950, L3100.3425, L803.2200, L3900.2100, L3000.0375, L503.6550, L3100.5440, L3100.5850 #### [facility] [address] [place], [place], [id number] AST [Catalytic activity/Vol] 249 U/L High 15-37 [facility] Comment on above: Performed By: #### L 3300.0700, L3410.2350, L3400.3800, L503.6030, L800.1280, L100.9950, L3100.3425, L803.2200, L3900.2100, L3000.0375, L503.6550, L3100.5440, L3100.5850 #### [facility] [address] [place], [address] Bilirubin [Mass/Vol] 12.20 mg/dL High 0.20-1.00 [facility] Comment on above: Result Comment: For patients on eltrombopag therapy, use of Dimension [place] TBIL is not recommended. Performed By: #### L 3300.0700, L3410.2350, L3400.3800, L503.6030, L800.1280, L100.9950, L3100.3425, L803.2200, L3900.2100, L3000.0375, L503.6550, L3100.5440, L3100.5850 #### [facility] [address] [place], [address] (193) BUN/CRE 24.2 RATIO High 10-20 [facility] Comment on above: Performed By: #### L 3300.0700, L3410.2350, L3400.3800, L503.6030, L800.1280, L100.9950, L3100.3425, L803.2200, L3900.2100, L3000.0375, L503.6550, L3100.5440, L3100.5850 #### [facility] [address] [facility] [place], [address] CA,Total 8.9 mg/dL Normal 8.5-10.1 [facility] Comment on above: Performed By: #### L 3300.0700, L3410.2350, L3400.3800, L503.6030, L800.1280, L100.9950, L3100.3425, L803.2200, L3900.2100, L3000.0375, L503.6550, L3100.5440, L3100.5850 #### [facility] [address] [place], [address] (499) Chloride [Moles/Vol] 105 mmol/L Normal 98-107 [facility] Comment on above: Performed By: #### L 3300.0700, L3410.2350, L3400.3800, L503.6030, L800.1280, L100.9950, L3100.3425, L803.2200, L3900.2100, L3000.0375, L503.6550, L3100.5440, L3100.5850 #### [facility] [address] [place], [place], [address] (401) CO2 [Moles/Vol] 18.0 mmol/L Low 21.0-32.0 [facility] Comment on above: Performed By: #### L 3300.0700, L3410.2350, L3400.3800, L503.6030, L800.1280, L100.9950, L3100.3425, L803.2200, L3900.2100, L3000.0375, L503.6550, L3100.5440, L3100.5850 #### [facility] [address] [place], [address] (915) Creatinine [Mass/Vol] 1.24 mg/dL High 0.55-1.02 [facility] Comment on above: Result Comment: Mode rate Icterus, Result may be falsely decreased. The validity of the calculated GFR GFRAA in patients over 70 years has not been determined. Clinical correlation is essential. Performed By: #### L 3300.0700, L3410.2350, L3400.3800, L503.6030, L800.1280, L100.9950, L3100.3425, L803.2200, L3900.2100, L3000.0375, L503.6550, L3100.5440, L3100.5850 #### [facility] [address] [place], [address] (418) ECRCL 49.46 ml/min Normal [facility] Comment on above: Performed By: #### L 3300.0700, L3410.2350, L3400.3800, L503.6030, L800.1280, L100.9950, L3100.3425, L803.2200, L3900.2100, L3000.0375, L503.6550, L3100.5440, L3100.5850 #### [facility] [address] [place], [place], [address] EST GFR - AA 54 mL/min Low >60 [facility] Comment on above: Result Comment: Afri can Gibraltarian GFR Calc Performed By: #### L 3300.0700, L3410.2350, L3400.3800, L503.6030, L800.1280, L100.9950, L3100.3425, L803.2200, L3900.2100, L3000.0375, L503.6550, L3100.5440, L3100.5850 #### [facility] [address] [place], [place], [address] GAP 14 Normal 5-15 [facility] Comment on above: Performed By: #### L 3300.0700, L3410.2350, L3400.3800, L503.6030, L800.1280, L100.9950, L3100.3425, L803.2200, L3900.2100, L3000.0375, L503.6550, L3100.5440, L3100.5850 #### [facility] [address] [place], [address] GFR/1.73 sq M.predicted among non-blacks MDRD (S/P/Bld) [Vol rate/Area] 45 mL/min/{1.73_m2} Low >60 [facility] Comment on above: Result Comment: Non- GFR Calc Performed By: #### L 3300.0700, L3410.2350, L3400.3800, L503.6030, L800.1280, L100.9950, L3100.3425, L803.2200, L3900.2100, L3000.0375, L503.6550, L3100.5440, L3100.5850 #### [facility] [address] [place], [address] Globulin (S) [Mass/Vol] 3.8 g/dL Normal 2.2-4.2 [facility] Comment on above: Performed By: #### L 3300.0700, L3410.2350, L3400.3800, L503.6030, L800.1280, L100.9950, L3100.3425, L803.2200, L3900.2100, L3000.0375, L503.6550, L3100.5440, L3100.5850 #### [facility] [address] [place], [address] Glucose [Mass/Vol] 115 mg/dL High 74-106 [facility] Comment on above: Result Comment: Fast ing Glucose result from 100 to 125 mg/dL suggests IMPAIRED HOMEOSTASIS per A.D.A. criteria. Performed By: #### L 3300.0700, L3410.2350, L3400.3800, L503.6030, L800.1280, L100.9950, L3100.3425, L803.2200, L3900.2100, L3000.0375, L503.6550, L3100.5440, L3100.5850 #### [facility] [address] [place], [address] Potassium [Moles/Vol] 3.7 mmol/L Normal 3.5-5.1 [facility] Comment on above: Performed By: #### L 3300.0700, L3410.2350, L3400.3800, L503.6030, L800.1280, L100.9950, L3100.3425, L803.2200, L3900.2100, L3000.0375, L503.6550, L3100.5440, L3100.5850 #### [facility] [address] [place], [address] Sodium [Moles/Vol] 137 mmol/L Normal 136-145 [facility] Comment on above: Performed By: #### L 3300.0700, L3410.2350, L3400.3800, L503.6030, L800.1280, L100.9950, L3100.3425, L803.2200, L3900.2100, L3000.0375, L503.6550, L3100.5440, L3100.5850 #### [facility] [address] [place], [place], [address] T PROT 6.3 g/dL Low 6.4-8.2 [facility] Comment on above: Result Comment: Mode rate Icterus, Result may be falsely decreased. Performed By: #### L 3300.0700, L3410.2350, L3400.3800, L503.6030, L800.1280, L100.9950, L3100.3425, L803.2200, L3900.2100, L3000.0375, L503.6550, L3100.5440, L3100.5850 #### [facility] [address] [place], [place], [address] Urea nitrogen [Mass/Vol] 30 mg/dL High 7-18 [facility] Comment on above: Performed By: #### L 3300.0700, L3410.2350, L3400.3800, L503.6030, L800.1280, L100.9950, L3100.3425, L803.2200, L3900.2100, L3000.0375, L503.6550, L3100.5440, L3100.5850 #### [facility] [address] [place], [place], [address] Consultation - Surgicalon Consultation - Surgical [facility] Medical Records Department [address] [place] [address] Consultation - Surgical 10/16/23 0804 MR#: [id number] Acct: [id number] Name: PENNY MCKEON Rep #: [id number] : 1945 78 From: Caden Roy MD PCP: Dr. Laura Bowden, DO Status:ADM IN Location: MS3 [id number] Assessment Plan Assessment/Plan (1) Acute calculous cholecystitis: [...] is a 78 F who presented to [facility] after she had been found down at [...] She is also scheduled to see a airplane navigator but canceled on the account of her symptoms. Through this. If feeling poorly Mrs. Mckeon reports a weight loss of approximately 23 pounds. Patient medically has a history of hypertension, hyperlipidemia, morbid obesity, obstructive sleep apnea on CPAP, well-controlled diabetes (she states that her last A1c was 7) and chronic kidney disease stage III. She has not ever undergone a surgery. [facility] Medical History Allergic rhinitis Anxiety and depression [...] DAILY Allergie (more content not included)... Normal [facility] Hemoglobin A1con 10-16-2023 HbA1c (Bld) [Mass fraction] 6.7 % High 3.8-5.6 [facility] Comment on above: Result Comment: Norm al < 5.7 % Prediabetic 5.7 - 6.4 % Diabetic >or= 6.5 % Please note range changes. Performed By: #### L 3300.0700, L3410.2350, L3400.3800, L503.6030, L800.1280, L100.9950, L3100.3425, L803.2200, L3900.2100, L3000.0375, L503.6550, L3100.5440, L3100.5850 #### [facility] [address] [place], [place], [address] No Panel InformationOrdered By: Rene Dasilva on 10-16-2023 Thyroid Stimulating Hormone (TSH) 1.89 uIU/mL 0.358-3.74 [facility] Thyroid Stim Hormone (TSH)on 10-16-2023 TSH 1.89 uIU/mL Normal 0.358-3.74 [facility] Comment on above: Performed By: #### L 3300.0700, L3410.2350, L3400.3800, L503.6030, L800.1280, L100.9950, L3100.3425, L803.2200, L3900.2100, L3000.0375, L503.6550, L3100.5440, L3100.5850 #### [facility] [address] [place], [place], [address] Whole blood hemoglobin A1c/t otal hemoglobin ratio (mass fraction)Ordered By: Rene Dasilva on 10-16-2023 HbA1c (Bld) [Mass fraction] 6.7 % 3.8-5.6 [facility] Comment on above: Normal < 5.7 % Predi abetic 5.7 - 6.4 % Diabetic >or= 6.5 % Please note range changes. 12 Lead EKGon 10-15-2023 12 Lead EKG [facility] Cardiovascular Services [address] [place] [address] 12 Lead EKG 10/15/23 1854 MR#: [id number] Acct: [id number] Name: PENNY MCKEON Rep #: [id number] : 1945 78 From: Ronen Cornoy MD Attending Dr: Dr. Tirso Friend MD Status : ADM IN Ordering Dr: Timbo Snowden MD Date: 10/15/23 [place] [facility] [place] F C Admitted: 10/15/23 Test Reason [...] ECG Confirmed by MAXI ROSA, RONEN ([id number]), legal editor BRANDIE LIZAMA ([id number]) on 10/17/2023 1:56:11 PM Referred By: BB Confirmed By:RONEN CONROY MD 10/17/23 1356 Date Ronen Conroy MD CC: Dr. Timbo Snowden MD; Dr. Laura Bowden DO; Dr. Tirso Friend MD Signed Normal [facility] Abdomen/Pel W ORAL Cont Only on 10-15-2023 Abdomen/Pel W ORAL Cont Only [facility] Imaging Services [address] [place] [address] Abdomen/Pel W ORAL Cont Only MR#: [id number] Acct: [id number] Name: PENNY MCKEON Rep #: [id number] : 1945 F 78 From: Jhonatan Robledo MD PCP: Dr. Laura Bowden DO Status: ADM IN Study: Abdomen/Pel W ORAL Cont Only Date of Exam: Exam# [id number] Ordering Dr: Timbo Snowden MD [id number] INDICATION: upper abd pain, n/v, hyperbilirubinemia EXAMINATION: [...] Timbo Snowden MD; Dr. Laura Bowden DO Head Teller: Signed Normal [facility] Absolute lymphocyte countOrd ered By: Timbo Snowden on 10-15-2023 Lymphocytes Auto (Unsp spec) [#/Vol] 1.07 10*3/uL 0.83-4.51 [facility] Basophil percentageOrdered B y: Timbo Snowden on 10-15-2023 Basophil percentage 10-25 SEEN /hpf 0-5 [facility] Basophils/100 WBC (Bld) 0.4 % 0-1 [facility] Bilirubin [Mass/Vol] 12.50 mg/dL 0.20-1.00 [facility] Comment on above: For patients on eltr ombopag therapy, use of Dimension [place] TBIL is not recommended. Chloride [Moles/Vol] 97 mmol/L 98-107 [facility] Eosinophils/100 WBC (Bld) 3.9 % 0-5 [facility] Glucose [Mass/Vol] 158 mg/dL 74-106 [facility] Comment on above: Fasting Glucose resu lt greater than or equal to 126 mg/dL suggests DIABETES MELLITUS per A.D.A. criteria. Neutrophils (Bld) [#/Vol] 16.8 10*3/uL 2.0-7.7 [facility] Neutrophils/100 WBC (Bld) 83.6 % 47-70 [facility] Potassium [Moles/Vol] 3.3 mmol/L 3.5-5.1 [facility] Comment on above: Slight Hemolysis, Re sult may be falsely increased. Protein [Mass/Vol] 6.9 g/dL 6.4-8.2 [facility] Comment on above: Moderate Icterus, Re sult may be falsely decreased. Sodium [Moles/Vol] 129 mmol/L 136-145 [facility] WBC (Bld) [#/Vol] 20.1 10*3/uL 4.4-11.0 [place] [facility] Glucoseon 10-15-2023 [place] GLU 119 mg/dL High 74-106 [facility] Comment on above: Result Comment: JORDAN MORALESENT OF PATIENT CARE PER NURSING PROTOCOL Performed By: #### L [phone] ####[facility] [id number] [place], [address] Bilirubin Test strip Ql (U)O rdered By: Timbo Snowden on 10-15-2023 Bilirubin Ql (U) Negative Negative [facility] Blood erythrocytes count (nu mber/volume)Ordered By: Timbo Snowden on 10-15-2023 RBC (Bld) [#/Vol] 4.09 10*6/uL 4.2-5.4 [place] Blood hemoglobin measurement (mass/volume)Ordered By: Timbo Snowden on 10-15-2023 Hemoglobin (Bld) [Mass/Vol] 13.0 g/dL 12.0-15.0 [facility] Blood lymphocytes/100 leukoc ytesOrdered By: Timbo Snowden on 10-15-2023 Lymphocytes/100 WBC (Bld) 5.3 % 19-41 [facility] Blood monocytes/100 leukocyt esOrdered By: Timbotete Snowden on 10-15-2023 Monocytes/100 WBC (Bld) 6.0 % 0-10 [facility] Blood platelet mean volumeOr dered By: Timbo Snowden on 10-15-2023 Platelet mean volume (Bld) [Entitic vol] 9.9 fL 6.2-12.0 [facility] CBC W/Diff, Automatedon 10-03 Absolute Lymph 1.07 X10 3/uL Normal 0.83-4.51 [facility] Comment on above: Performed By: #### L 3300.0700, L3410.2350, L3400.3800, L503.6030, L800.1280, L100.9950, L3100.3425, L803.2200, L3900.2100, L3000.0375, L503.6550, L3100.5440, L3100.5850 #### [facility] [address] [place], [place], [id number] Absolute Neut 16.8 X10 3/uL High 2.0-7.7 [facility] Comment on above: Performed By: #### L 3300.0700, L3410.2350, L3400.3800, L503.6030, L800.1280, L100.9950, L3100.3425, L803.2200, L3900.2100, L3000.0375, L503.6550, L3100.5440, L3100.5850 #### [facility] [address] [place], [address] Basophils/100 WBC (Bld) 0.4 % Normal 0-1 [facility] Comment on above: Performed By: #### L 3300.0700, L3410.2350, L3400.3800, L503.6030, L800.1280, L100.9950, L3100.3425, L803.2200, L3900.2100, L3000.0375, L503.6550, L3100.5440, L3100.5850 #### [facility] [address] [place], [address] Eosinophils/100 WBC (Bld) 3.9 % Normal 0-5 [facility] Comment on above: Performed By: #### L 3300.0700, L3410.2350, L3400.3800, L503.6030, L800.1280, L100.9950, L3100.3425, L803.2200, L3900.2100, L3000.0375, L503.6550, L3100.5440, L3100.5850 #### [facility] [address] [place], [place], [id number] Erythrocyte distribution width (RBC) [Ratio] 14.3 % Normal 11.6-14.6 [facility] Comment on above: Performed By: #### L 3300.0700, L3410.2350, L3400.3800, L503.6030, L800.1280, L100.9950, L3100.3425, L803.2200, L3900.2100, L3000.0375, L503.6550, L3100.5440, L3100.5850 #### [facility] [address] [place], [address] Hematocrit (Bld) [Volume fraction] 37.4 % Normal 37-47 [facility] Comment on above: Performed By: #### L 3300.0700, L3410.2350, L3400.3800, L503.6030, L800.1280, L100.9950, L3100.3425, L803.2200, L3900.2100, L3000.0375, L503.6550, L3100.5440, L3100.5850 #### [facility] [address] [place] [place], [address] Hemoglobin (Bld) [Mass/Vol] 13.0 g/dL Normal 12.0-15.0 [facility] Comment on above: Performed By: #### L 3300.0700, L3410.2350, L3400.3800, L503.6030, L800.1280, L100.9950, L3100.3425, L803.2200, L3900.2100, L3000.0375, L503.6550, L3100.5440, L3100.5850 #### [facility] [address] [place], [address] IG% 0.800 Normal 0.0-0.9 [facility] Comment on above: Result Comment: IG% - Immature Granulocytes (promyelocytes, myelocytes and metamyelocytes) > 1% indicates that a LEFT SHIFT is Present. Performed By: #### L 3300.0700, L3410.2350, L3400.3800, L503.6030, L800.1280, L100.9950, L3100.3425, L803.2200, L3900.2100, L3000.0375, L503.6550, L3100.5440, L3100.5850 #### [facility] [address] [place], [address] Lymphocytes/100 WBC (Bld) 5.3 % Low 19-41 [facility] Comment on above: Performed By: #### L 3300.0700, L3410.2350, L3400.3800, L503.6030, L800.1280, L100.9950, L3100.3425, L803.2200, L3900.2100, L3000.0375, L503.6550, L3100.5440, L3100.5850 #### [facility] [address] [place], [address] MCH (RBC) [Entitic mass] 31.8 pg Normal 27.0-32.0 [facility] Comment on above: Performed By: #### L 3300.0700, L3410.2350, L3400.3800, L503.6030, L800.1280, L100.9950, L3100.3425, L803.2200, L3900.2100, L3000.0375, L503.6550, L3100.5440, L3100.5850 #### [facility] [address] [place], [address] MCHC (RBC) [Mass/Vol] 34.8 g/dL Normal 32-36 [facility] Comment on above: Performed By: #### L 3300.0700, L3410.2350, L3400.3800, L503.6030, L800.1280, L100.9950, L3100.3425, L803.2200, L3900.2100, L3000.0375, L503.6550, L3100.5440, L3100.5850 #### [facility] [address] [place], [address] MCV (RBC) [Entitic vol] 91.4 fL Normal 81-99 [facility] Comment on above: Performed By: #### L 3300.0700, L3410.2350, L3400.3800, L503.6030, L800.1280, L100.9950, L3100.3425, L803.2200, L3900.2100, L3000.0375, L503.6550, L3100.5440, L3100.5850 #### [facility] [address] [place], [address] Monocytes/100 WBC (Bld) 6.0 % Normal 0-10 [facility] Comment on above: Performed By: #### L 3300.0700, L3410.2350, L3400.3800, L503.6030, L800.1280, L100.9950, L3100.3425, L803.2200, L3900.2100, L3000.0375, L503.6550, L3100.5440, L3100.5850 #### [facility] [address] [place], [place], [phone] Neutrophils/100 WBC (Bld) 83.6 % High 47-70 [facility] Comment on above: Performed By: #### L 3300.0700, L3410.2350, L3400.3800, L503.6030, L800.1280, L100.9950, L3100.3425, L803.2200, L3900.2100, L3000.0375, L503.6550, L3100.5440, L3100.5850 #### [facility] [address] [place], [address] Nucleated RBC (Bld) [#/Vol] 0 10*3/uL Normal 0-5 [facility] Comment on above: Performed By: #### L 3300.0700, L3410.2350, L3400.3800, L503.6030, L800.1280, L100.9950, L3100.3425, L803.2200, L3900.2100, L3000.0375, L503.6550, L3100.5440, L3100.5850 #### [facility] [address] [place], [address] Platelet mean volume (Bld) [Entitic vol] 9.9 fL Normal 6.2-12.0 [facility] Comment on above: Performed By: #### L 3300.0700, L3410.2350, L3400.3800, L503.6030, L800.1280, L100.9950, L3100.3425, L803.2200, L3900.2100, L3000.0375, L503.6550, L3100.5440, L3100.5850 #### [facility] [address] [place], [place], [id number] [phone] Platelets (Bld) [#/Vol] 128 10*3/uL Low 150-450 [facility] Comment on above: Performed By: #### L 3300.0700, L3410.2350, L3400.3800, L503.6030, L800.1280, L100.9950, L3100.3425, L803.2200, L3900.2100, L3000.0375, L503.6550, L3100.5440, L3100.5850 #### [facility] [address] [place], [place], [id number] RBC (Bld) [#/Vol] 4.09 10*6/uL Low 4.2-5.4 [facility] Comment on above: Performed By: #### L 3300.0700, L3410.2350, L3400.3800, L503.6030, L800.1280, L100.9950, L3100.3425, L803.2200, L3900.2100, L3000.0375, L503.6550, L3100.5440, L3100.5850 #### [facility] [address] [place], [place], [id number] RDW SD 48.5 fl High 35.1-43.9 [facility] Comment on above: Performed By: #### L 3300.0700, L3410.2350, L3400.3800, L503.6030, L800.1280, L100.9950, L3100.3425, L803.2200, L3900.2100, L3000.0375, L503.6550, L3100.5440, L3100.5850 #### [facility] [address] [place], [place], [id number] WBC (Bld) [#/Vol] 20.1 10*3/uL High 4.4-11.0 [facility] Comment on above: Performed By: #### L 3300.0700, L3410.2350, L3400.3800, L503.6030, L800.1280, L100.9950, L3100.3425, L803.2200, L3900.2100, L3000.0375, L503.6550, L3100.5440, L3100.5850 #### [facility] [address] [place], [address] Comprehensive Metabolic Prof inon 10-15-2023 Albumin [Mass/Vol] 2.7 g/dL Low 3.2-5.0 [facility] Comment on above: Order Comment: 'TROP ' Serial specimen #1, #2 or #3: 1 Performed By: #### L 3300.0700, L3410.2350, L3400.3800, L503.6030, L800.1280, L100.9950, L3100.3425, L803.2200, L3900.2100, L3000.0375, L503.6550, L3100.5440, L3100.5850 #### [facility] [address] [place], [address] Albumin/Globulin [Mass ratio] 0.6 {ratio} Low 0.9-2.4 [facility] Comment on above: Order Comment: 'TROP ' Serial specimen #1, #2 or #3: 1 Performed By: #### L 3300.0700, L3410.2350, L3400.3800, L503.6030, L800.1280, L100.9950, L3100.3425, L803.2200, L3900.2100, L3000.0375, L503.6550, L3100.5440, L3100.5850 #### [facility] [address] [place], [place], [phone] ALK P 306 U/L High 45-117 [facility] Comment on above: Order Comment: 'TROP ' Serial specimen #1, #2 or #3: 1 Performed By: #### L 3300.0700, L3410.2350, L3400.3800, L503.6030, L800.1280, L100.9950, L3100.3425, L803.2200, L3900.2100, L3000.0375, L503.6550, L3100.5440, L3100.5850 #### [facility] [address] [place], [place], [phone] (960) ALT [Catalytic activity/Vol] 257 U/L High 13-56 [facility] Comment on above: Order Comment: 'TROP ' Serial specimen #1, #2 or #3: 1 Performed By: #### L 3300.0700, L3410.2350, L3400.3800, L503.6030, L800.1280, L100.9950, L3100.3425, L803.2200, L3900.2100, L3000.0375, L503.6550, L3100.5440, L3100.5850 #### [facility] [address] [place], [place], [id number] AST [Catalytic activity/Vol] 209 U/L High 15-37 [facility] Comment on above: Order Comment: 'TROP ' Serial specimen #1, #2 or #3: 1 Result Comment: Slig ht Hemolysis, Result may be falsely increased. Performed By: #### L 3300.0700, L3410.2350, L3400.3800, L503.6030, L800.1280, L100.9950, L3100.3425, L803.2200, L3900.2100, L3000.0375, L503.6550, L3100.5440, L3100.5850 #### [facility] [address] [place], [address] Bilirubin [Mass/Vol] 12.50 mg/dL High 0.20-1.00 [facility] Comment on above: Order Comment: 'TROP ' Serial specimen #1, #2 or #3: 1 Result Comment: For patients on eltrombopag therapy, use of Dimension [place] TBIL is not recommended. Performed By: #### L 3300.0700, L3410.2350, L3400.3800, L503.6030, L800.1280, L100.9950, L3100.3425, L803.2200, L3900.2100, L3000.0375, L503.6550, L3100.5440, L3100.5850 #### [facility] [address] [place], [place], [phone] (732) BUN/CRE 23.1 RATIO High 10-20 [facility] Comment on above: Order Comment: 'TROP ' Serial specimen #1, #2 or #3: 1 Performed By: #### L 3300.0700, L3410.2350, L3400.3800, L503.6030, L800.1280, L100.9950, L3100.3425, L803.2200, L3900.2100, L3000.0375, L503.6550, L3100.5440, L3100.5850 #### [facility] [address] [place], [place], [phone] CA,Total 9.3 mg/dL Normal 8.5-10.1 [facility] Comment on above: Order Comment: 'TROP ' Serial specimen #1, #2 or #3: 1 Performed By: #### L 3300.0700, L3410.2350, L3400.3800, L503.6030, L800.1280, L100.9950, L3100.3425, L803.2200, L3900.2100, L3000.0375, L503.6550, L3100.5440, L3100.5850 #### [facility] [address] [place], [address] Chloride [Moles/Vol] 97 mmol/L Low 98-107 [facility] Comment on above: Order Comment: 'TROP ' Serial specimen #1, #2 or #3: 1 Performed By: #### L 3300.0700, L3410.2350, L3400.3800, L503.6030, L800.1280, L100.9950, L3100.3425, L803.2200, L3900.2100, L3000.0375, L503.6550, L3100.5440, L3100.5850 #### [facility] [address] [place], [address] CO2 [Moles/Vol] 20.0 mmol/L Low 21.0-32.0 [facility] Comment on above: Order Comment: 'TROP ' Serial specimen #1, #2 or #3: 1 Performed By: #### L 3300.0700, L3410.2350, L3400.3800, L503.6030, L800.1280, L100.9950, L3100.3425, L803.2200, L3900.2100, L3000.0375, L503.6550, L3100.5440, L3100.5850 #### [facility] [address] [place], [address] Creatinine [Mass/Vol] 1.43 mg/dL High 0.55-1.02 [facility] Comment on above: Order Comment: 'TROP ' Serial specimen #1, #2 or #3: 1 Result Comment: Mode rate Icterus, Result may be falsely decreased. The validity of the calculated GFR GFRAA in patients over 70 years has not been determined. Clinical correlation is essential. Performed By: #### L 3300.0700, L3410.2350, L3400.3800, L503.6030, L800.1280, L100.9950, L3100.3425, L803.2200, L3900.2100, L3000.0375, L503.6550, L3100.5440, L3100.5850 #### [facility] [address] [place], [address] ECRCL 45.05 ml/min Normal [facility] Comment on above: Order Comment: 'TROP ' Serial specimen #1, #2 or #3: 1 Performed By: #### L 3300.0700, L3410.2350, L3400.3800, L503.6030, L800.1280, L100.9950, L3100.3425, L803.2200, L3900.2100, L3000.0375, L503.6550, L3100.5440, L3100.5850 #### [facility] [address] [place], [address] EST GFR - AA 46 mL/min Low >60 [facility] Comment on above: Order Comment: 'TROP ' Serial specimen #1, #2 or #3: 1 Result Comment: Afri can [place] GFR Calc Performed By: #### L 3300.0700, L3410.2350, L3400.3800, L503.6030, L800.1280, L100.9950, L3100.3425, L803.2200, L3900.2100, L3000.0375, L503.6550, L3100.5440, L3100.5850 #### [facility] [address] [place], [address] GAP 12 Normal 5-15 [facility] Comment on above: Order Comment: 'TROP ' Serial specimen #1, #2 or #3: 1 Performed By: #### L 3300.0700, L3410.2350, L3400.3800, L503.6030, L800.1280, L100.9950, L3100.3425, L803.2200, L3900.2100, L3000.0375, L503.6550, L3100.5440, L3100.5850 #### [facility] [address] [place], [place], [id number] GFR/1.73 sq M.predicted among non-blacks MDRD (S/P/Bld) [Vol rate/Area] 38 mL/min/{1.73_m2} Low >60 [facility] Comment on above: Order Comment: 'TROP ' Serial specimen #1, #2 or #3: 1 Result Comment: Non- GFR Calc Performed By: #### L 3300.0700, L3410.2350, L3400.3800, L503.6030, L800.1280, L100.9950, L3100.3425, L803.2200, L3900.2100, L3000.0375, L503.6550, L3100.5440, L3100.5850 #### [facility] [address] [place], [place], [id number] Globulin (S) [Mass/Vol] 4.2 g/dL Normal 2.2-4.2 [facility] Comment on above: Order Comment: 'TROP ' Serial specimen #1, #2 or #3: 1 Performed By: #### L 3300.0700, L3410.2350, L3400.3800, L503.6030, L800.1280, L100.9950, L3100.3425, L803.2200, L3900.2100, L3000.0375, L503.6550, L3100.5440, L3100.5850 #### [facility] [address] [place], [address] Glucose [Mass/Vol] 158 mg/dL High 74-106 [facility] Comment on above: Order Comment: 'TROP ' Serial specimen #1, #2 or #3: 1 Result Comment: Fast ing Glucose result greater than or equal to 126 mg/dL suggests DIABETES MELLITUS per A.D.A. criteria. Performed By: #### L 3300.0700, L3410.2350, L3400.3800, L503.6030, L800.1280, L100.9950, L3100.3425, L803.2200, L3900.2100, L3000.0375, L503.6550, L3100.5440, L3100.5850 #### [facility] [address] [place], [address] Potassium [Moles/Vol] 3.3 mmol/L Low 3.5-5.1 [facility] Comment on above: Order Comment: 'TROP ' Serial specimen #1, #2 or #3: 1 Result Comment: Slig ht Hemolysis, Result may be falsely increased. Performed By: #### L 3300.0700, L3410.2350, L3400.3800, L503.6030, L800.1280, L100.9950, L3100.3425, L803.2200, L3900.2100, L3000.0375, L503.6550, L3100.5440, L3100.5850 #### [facility] [address] [place], [address] Sodium [Moles/Vol] 129 mmol/L Low 136-145 [facility] Comment on above: Order Comment: 'TROP ' Serial specimen #1, #2 or #3: 1 Performed By: #### L 3300.0700, L3410.2350, L3400.3800, L503.6030, L800.1280, L100.9950, L3100.3425, L803.2200, L3900.2100, L3000.0375, L503.6550, L3100.5440, L3100.5850 #### [facility] [address] [place], [address] T PROT 6.9 g/dL Normal 6.4-8.2 [facility] Comment on above: Order Comment: 'TROP ' Serial specimen #1, #2 or #3: 1 Result Comment: Mode rate Icterus, Result may be falsely decreased. Performed By: #### L 3300.0700, L3410.2350, L3400.3800, L503.6030, L800.1280, L100.9950, L3100.3425, L803.2200, L3900.2100, L3000.0375, L503.6550, L3100.5440, L3100.5850 #### [facility] [address] [place], [address] Urea nitrogen [Mass/Vol] 33 mg/dL High 7-18 [facility] Comment on above: Order Comment: 'TROP ' Serial specimen #1, #2 or #3: 1 Performed By: #### L 3300.0700, L3410.2350, L3400.3800, L503.6030, L800.1280, L100.9950, L3100.3425, L803.2200, L3900.2100, L3000.0375, L503.6550, L3100.5440, L3100.5850 #### [facility] [address] [place], [address] Culture, urineOrdered By: Caity Snowden on 10-15-2023 Bacteria identified Cx Nom (U) Klebsiella aerogenes [facility] Bacteria identified Cx Nom (U) Klebsiella aerogenes [facility] Determination of erythrocyte mean corpuscular volume (MCV)Ordered By: Timbo Snowden on 10-15-2023 MCV (RBC) [Entitic vol] 91.4 fL 81-99 [facility] Emergency Department Summary on 10-15-2023 Emergency Department Summary [facility] Medical Records Department [address] [place] [address] Emergency Department Summary 10/15/23 MR#: [id number] Acct: [id number] Name: PENNY MCKEON Rep #: [id number] : 1945 78 From: Timbo Snowden MD PCP: Dr. Laura Bowden, DO Status:ADM IN Location: [place] [id number] HPI HPI - GI History of Present [...] she knows of. Generalized weakness started [facility]. [facility] Medical History Allergic rhinitis Anxiety and depression [...] Source Tempo (more content not included)... Normal [facility] Gallbladderon 10-15-2023 Gallbladder [facility] Imaging Services [address] [place] [address] Gallbladder MR#: [id number] Acct: [id number] Name: PENNY MCKEON Rep #: [id number] : 1945 F 78 From: Tracy Shearer MD PCP: Dr. Laura Bowden, DO Status: REG ER Study: Gallbladder Date of Exam: 10/15/23 Exam# [id number] Ordering Dr: Timbo Snowden MD [id number] STUDY: ABDOMINAL ULTRASOUND - RIGHT UPPER QUADRANT [...] Timbo Snowden MD; Dr. Laura Bowden DO Head Teller: Signed Normal [facility] H AND P Exam - Hospitaliston 10-15-2023 H&P Exam - Hospitalist [facility] Medical Records Department [address] [place] [address] H P Exam - Hospitalist 10/15/232005 MR#: [id number] Acct: [id number] Name: PENNY MCKEON Rep #: [id number] : 1945 78 From: Enma Otoole MD PCP: Dr. Laura Bowden, Status:ADM IN [place] [id number] HPI - General General Date of Admission: 10/15/23 Date of Service: 10/15/23 Chief Complaint: Abdominal pain, nausea. HPI Narrative The 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 78 y/o F retired from [employer] w/ PMHx: Morbid obesity, HTN, HLD, Diabetes mellitus type II, Former tobacco use who presents to the [facility] ED on 10/15/23 with history of episode [...] as Zofran 4 mg IV x 1. [facility] Medical History (Updated 10/15/23 @ 20:10 by [...] discomfort, palp (more content not included)... Normal [facility] Hematocrit Auto (Bld) [Volum e fraction]Ordered By: Timbo Snowden on 10-15-2023 Hematocrit (Bld) [Volume fraction] 37.4 % 37-47 [facility] Ketones Test strip Ql (U)Ord ered By: Timbo Snowden on 10-15-2023 Ketones Ql (U) Negative Negative [facility] L501.4020on 10-15-2023 TROPONIN-I HS 21 pg/mL Normal 3.0-54.0 [facility] Comment on above: Order Comment: 'TROP ' Serial specimen #1, #2 or #3: 1 Result Comment: Plea se Note: New Test Units and Gender Specific Reference Ranges. For more information see Policy Stat Procedure [place] High Sensitivity Troponin (TNIH) and attachments. Performed By: #### L 3300.0700, L3410.2350, L3400.3800, L503.6030, L800.1280, L100.9950, L3100.3425, L803.2200, L3900.2100, L3000.0375, L503.6550, L3100.5440, L3100.5850 #### [facility] [address] [place], [address] Laboratory - Chemistry and C hemistry - challengeOrdered By: Timbo Snowden on 10-15-2023 ALP [Catalytic activity/Vol] 306 U/L 45-117 [facility] ALT [Catalytic activity/Vol] 257 U/L 13-56 [facility] CO2 [Moles/Vol] 20.0 mmol/L 21.0-32.0 [facility] Globulin (S) [Mass/Vol] 4.2 g/dL 2.2-4.2 [facility] Lipase [Catalytic activity/Vol] 93 U/L 13-75 [facility] Comment on above: Please note:LIPASE r evised reference range effective 23. New Lipase methodology. Expected to produce lower values than the previous assay method. NEW Reference Range: 13 - 75 U/L Urea nitrogen/Creatinine [Mass ratio] 23.1 mg/mg 10-20 [facility] Laboratory - Chemistry and C hemistry - challengeOrdered By: Enma Otoole on 10-15-2023 Magnesium [Mass/Vol] 1.4 mg/dL 1.6-2.6 [facility] Laboratory - Hematology and Cell countsOrdered By: Timbo Snowden on 10-15-2023 Erythrocyte distribution width (RBC) [Entitic vol] 48.5 fL 35.1-43.9 [facility] Erythrocyte distribution width (RBC) [Ratio] 14.3 % 11.6-14.6 [facility] Immature granulocytes/100 WBC (Bld) 0.800 % 0.0-0.9 [facility] Comment on above: IG% - Immature Granu locytes (promyelocytes, myelocytes and metamyelocytes) > 1% indicates that a LEFT SHIFT is Present. MCH (RBC) [Entitic mass] 31.8 pg 27.0-32.0 [facility] Nucleated RBC/100 WBC (Bld) [Ratio] 0 % 0-5 [facility] Lipaseon 10-15-2023 Lipase [Catalytic activity/Vol] 93 U/L High 13-75 [facility] Comment on above: Order Comment: 'TROP [...] L803.2200, L3900.2100, L3000.0375, L503.6550, L3100.5440, L3100.5850 #### [facility] [address] [place], [place], [id number] MCHC Auto (RBC) [Mass/Vol]Or dered By: Timbo Snowden on 10-15-2023 MCHC (RBC) [Mass/Vol] 34.8 g/dL 32-36 [facility] Magnesiumon 10-15-2023 Magnesium [Mass/Vol] 1.4 mg/dL Low 1.6-2.6 [facility] Comment on above: Order Comment: Comme nts: may add to ED labs Performed By: #### L 3300.0700, L3410.2350, L3400.3800, L503.6030, L800.1280, L100.9950, L3100.3425, L803.2200, L3900.2100, L3000.0375, L503.6550, L3100.5440, L3100.5850 #### [facility] [address] [place], [place], [id number] Mucus LM Ql (Urine sed)Order ed By: Timbo Snowden on 10-15-2023 Mucus Ql (Urine sed) 0 SEEN /hpf [facility] Nitrite Test strip Ql (U)Ord ered By: Timbo Snowden on 10-15-2023 Nitrite Ql (U) Negative Negative [facility] No Panel InformationOrdered By: Timbo Snowden on 10-15-2023 Estimated Creatinine Clearance Calc 45.05 ml/min [facility] Estimated GFR (MDRD) Amer 46 mL/min >60 [facility] Comment on above: GFR Calc Estimated GFR (MDRD) Non-Af Amer 38 mL/min >60 [facility] Comment on above: Non- GFR Calc Troponin I High Sensitivity 21 pg/mL 3.0-54.0 [facility] Comment on above: Please Note: New Danielle t Units and Gender Specific Reference Ranges. For more information see Policy Stat Procedure [place] High Sensitivity Troponin (TNIH) and attachments. Platelets bldOrdered By: Elvi Snowden on 10-15-2023 Platelets (Bld) [#/Vol] 128 10*3/uL 150-450 [facility] Protein Test strip Ql (U)Ord ered By: Timbo Snowden on 10-15-2023 Protein Ql (U) 15 mg/dl Negative [facility] Serum or plasma albumin esthela urement (mass/volume)Ordered By: Timbo Snowden on 10-15-2023 Albumin [Mass/Vol] 2.7 g/dL 3.2-5.0 [facility] Serum or plasma albumin/glob ulin mass ratioOrdered By: Timbo Snowden on 10-15-2023 Albumin/Globulin [Mass ratio] 0.6 {ratio} 0.9-2.4 [facility] Serum or plasma calcium esthela urement (mass/volume)Ordered By: Timbo Snowden on 10-15-2023 Calcium [Mass/Vol] 9.3 mg/dL 8.5-10.1 [facility] Serum or plasma creatinine m easurement (mass/volume)Ordered By: Timbo Snowden on 10-15-2023 Creatinine [Mass/Vol] 1.43 mg/dL 0.55-1.02 [facility] Comment on above: Moderate Icterus, Re sult may be falsely decreased.The validity of the calculated GFR & GFRAA in patients over 70 years has not been determined. Clinical correlation is essential. Serum or plasma urea nitroge n measurement (mass/volume)Ordered By: Timbo Snowden on 10-15-2023 Urea nitrogen [Mass/Vol] 33 mg/dL 7-18 [facility] Squamous epithelial cells de tection in urine sediment by light microscopyOrdered By: Timbo Snowden on 10-15-2023 Epithelial cells.squamous LM Ql (Urine sed) 0-5 SEEN /hpf 5-10 [facility] Thin prep Papanicolaou smear with manual screeningOrdered By: Timbo Snowden on 10-15-2023 Thin prep Papanicolaou smear with manual screening 209 U/L 15-37 [facility] Comment on above: Slight Hemolysis, Re sult may be falsely increased. Thin prep Papanicolaou smear with manual screening 12 -15 [facility] Urinalysis, Completeon 10-15 BACTERIA RARE Normal None Seen [facility] Comment on above: Order Comment: CLEAN CATCH Performed By: #### L 3300.0700, L3410.2350, L3400.3800, L503.6030, L800.1280, L100.9950, L3100.3425, L803.2200, L3900.2100, L3000.0375, L503.6550, L3100.5440, L3100.5850 #### [facility] [address] [place], [place], [id number] EPI,SQUAMOUS 0-5 SEEN Normal 5-10 [facility] Comment on above: Order Comment: CLEAN CATCH Performed By: #### L 3300.0700, L3410.2350, L3400.3800, L503.6030, L800.1280, L100.9950, L3100.3425, L803.2200, L3900.2100, L3000.0375, L503.6550, L3100.5440, L3100.5850 #### [facility] [address] [place], [place], [id number] WBC 10-25 SEEN Normal 0-5 [facility] Comment on above: Order Comment: CLEAN CATCH Performed By: #### L 3300.0700, L3410.2350, L3400.3800, L503.6030, L800.1280, L100.9950, L3100.3425, L803.2200, L3900.2100, L3000.0375, L503.6550, L3100.5440, L3100.5850 #### [facility] [address] [place], [address] Mucus Ql (Urine sed) 0 SEEN Normal [facility] Comment on above: Order Comment: CLEAN CATCH Performed By: #### L 3300.0700, L3410.2350, L3400.3800, L503.6030, L800.1280, L100.9950, L3100.3425, L803.2200, L3900.2100, L3000.0375, L503.6550, L3100.5440, L3100.5850 #### [facility] [address] [place], [address] RBC 0 SEEN Normal 0-5 [facility] Comment on above: Order Comment: CLEAN CATCH Performed By: #### L 3300.0700, L3410.2350, L3400.3800, L503.6030, L800.1280, L100.9950, L3100.3425, L803.2200, L3900.2100, L3000.0375, L503.6550, L3100.5440, L3100.5850 #### [facility] [address] [place], [place], [id number] Urine blood detectionOrdered By: Timbo Snowden on 10-15-2023 RBC Ql (U) 10 /ul Negative [facility] RBC Ql (U) 0 SEEN /hpf 0-5 [facility] Urine clarityOrdered By: Elvi Snowden on 10-15-2023 Clarity (U) Clear Clear [facility] Urine color determinationOrd ered By: Timbo Snowden on 10-15-2023 Color (U) Yellow Yellow [facility] Urine glucose detectionOrder ed By: Timbo Snowden on 10-15-2023 Glucose Ql (U) 1000 mg/dl Normal [facility] Urine leukocyte esterase det ection by dipstickOrdered By: Timbo Snowden on 10-15-2023 Leukocyte esterase Test strip Ql (U) 500 /ul Negative [facility] Urine pHOrdered By: Timbo Snowden on 10-15-2023 pH (U) 6.5 [pH] 5.0 - 8.0 [facility] Urine sediment bacteria coun t by microscopy (number/high power field)Ordered By: Timbo Snowden on 10-15-2023 Bacteria LM.HPF (Urine sed) [#/Area] RARE /hpf None Seen [facility] Urine specific gravity measu rementOrdered By: Timbo Snowden on 10-15-2023 Specific gravity (U) [Rel density] 1.005 1.002-1.03 0 [facility] Urobilinogen Auto test strip Ql (U)Ordered By: Timbo Snowden on 10-15-2023 Urobilinogen Ql (U) Normal mg/dl Normal [facility] C diff Tox gens Stl Ql DONNY+p robeon 09-09-2023 C. difficile toxin genes DONNY+probe Ql (Stl) Negative Normal Negative for C. difficile toxin by PCR [facility] Comment on above: Order Comment: Speci men Type: STOOL SPECIMEN Ordering Facility: [facility] Address: [address] [place] [phone] Performed By: #### 5 4067-4 #### [facility] CLIA [id number] [address] [place] FECAL LACTOFERRIN/LEUKOCYTES on 09-09-2023 Lactoferrin IA Ql (Stl) Positive for lac toferrin, which may indicate presence of fecal white blood cells Abnormal Negative [facility] Comment on above: Order Comment: Speci men Type: STOOL SPECIMEN Ordering Facility: [facility] Address: [address] [place] [phone] Performed By: #### F ECWBC #### [facility] CLIA [id number] [address] [place] [address] OF [facility] Gastrointestinal pathogens i dentified DONNY+probe Nom (Stl)on 09-09-2023 Campylobacter sp DNA DONNY+probe Nom (Unsp spec) Not detected Normal Not Detected [facility] Comment on above: Order Comment: Speci men Type: BLOOD SPECIMEN Ordering Facility: [facility] Address: [address] [place], [place] [address] Performed By: #### 5 5454-3 #### [facility] CLIA [id number] [address] [place] [address] Salmonella sp DNA DONNY+probe Ql (Unsp spec) Not detected Normal Not Detected [facility] Comment on above: Order Comment: Speci men Type: BLOOD SPECIMEN Ordering Facility: [facility] Address: [address] [place], [place] [address] Performed By: #### 5 5454-3 #### [facility] CLIA [id number] [address] [place] [address] Shiga toxin stx gene DONNY+probe Nom (Unsp spec) Not detected Normal Not Detected [facility] Comment on above: Order Comment: Speci men Type: BLOOD SPECIMEN Ordering Facility: [facility] Address: [address] [place] [address] Performed By: #### 5 5454-3 #### [facility] CLIA [id number] [address] [place] [address] Shigella sp DNA DONNY+probe Ql (Unsp spec) Not detected Normal Not Detected [facility] Comment on above: Order Comment: Speci men Type: BLOOD SPECIMEN Ordering Facility: [facility] Address: [address] [place], [place] [phone] Performed By: #### 5 5454-3 #### [facility] CLIA [id number] [address] [place] [address] ECHOon 06-17-2023 Echocardiography Echocardiography Rep ort: Transthoracic Echo [facility] of service: 06/17/2023 1:05:52 PM Indication: [...] appears normal measuring 1.7 cm. MITRAL VALVE [place] mitral valve. There is trace mitral valve regurgitation. There is no thickening. The peak mitral valve gradient is 8 mmHg. The mean mitral valve gradient is 3 mmHg. The pressure half time is 45 msec. The peak mitral E/A ratio is 0.59. The average mitral E/e' ratio is 16.7. The mitral flow deceleration time is 156 msec. TRICUSPID VALVE [place] tricuspid valve. There is trace (trace - [...] * * Final * * * [facility] Image : [id number] Normal [facility] 25(OH)D3 SerPl-[facility] 2022 25-hydroxyvitamin D3 [Mass/Vol] 21.9 ng/mL Low 30.0-100.0 [facility] Comment on above: Order Comment: Speci men Type: BLOOD SPECIMEN Ordering Facility: [facility] Address: [address] [place] [phone] Result Comment: Defi ciencyLess than 20 ng/mL [id number] - Less than 30 ng/mL Wjwqxzxyzar38 - 100 ng/mL Performed By: #### 2 4323-8, 3016-3, 1988- #### [facility] CLIA [id number] [address] [place] [address] #### 84155-0 #### [facility] CLIA [id number] [address] [place] [address] LAB CLIA [id number] 7337 [employer] [address] [place] #### 724[address]-5 #### [facility] CLIA [id number] [address] OF [facility] CBC W Auto Differential pane l (Bld)on 06-13-2023 Basophils (Bld) [#/Vol] 0.04 10*3/uL Normal <0.11 [facility] Comment on above: Order Comment: Speci men Type: BLOOD SPECIMEN Ordering Facility: [facility] Address: [address] [place] [phone] Performed By: #### 5 7021-8 #### [facility] CLIA [id number] [address] [place] [address] [place] Basophils/100 WBC (Bld) 0.6 % Normal [facility] Comment on above: Order Comment: Speci men Type: BLOOD SPECIMEN Ordering Facility: [facility] Address: [address] [place] [phone] Performed By: #### 5 7021-8 #### [facility] CLIA [id number] [address] [facility] [address] [place] [address] Differential cell count method Nom (Bld) Auto Normal [facility] Comment on above: Order Comment: Speci men Type: BLOOD SPECIMEN Ordering Facility: [facility] Address: [address] [place] [phone] Performed By: #### 5 7021-8 #### [facility] CLIA [id number] [address] [place] [address] [place] Eosinophils (Bld) [#/Vol] 0.41 10*3/uL Normal <0.46 [facility] Comment on above: Order Comment: Speci men Type: BLOOD SPECIMEN Ordering Facility: [facility] Address: [address] [place] [phone] Performed By: #### 5 7021-8 #### [facility] CLIA [id number] 7[address] [facility] [address] [place] [id number] [place] [address] STATES [facility] Eosinophils/100 WBC (Bld) 5.8 % Normal [facility] Comment on above: Order Comment: Speci men Type: BLOOD SPECIMEN Ordering Facility: [facility] Address: [address] [place] [phone] Performed By: #### 5 7021-8 #### [facility] CLIA [id number] [address] [facility] [address] [place] [id number] [place] [address] [place] Erythrocyte distribution width (RBC) [Ratio] 13.7 % Normal 11.5-15.0 [facility] Comment on above: Order Comment: Speci men Type: BLOOD SPECIMEN Ordering Facility: [facility] Address: [address] [place] [phone] Performed By: #### 5 7021-8 #### [facility] CLIA [id number] 7337 [facility] [address] [place] [address] [facility] [place] Hematocrit (Bld) [Volume fraction] 40.0 % Normal 36.0-46.0 [facility] Comment on above: Order Comment: Speci men Type: BLOOD SPECIMEN Ordering Facility: [facility] Address: [address] [place], [place] [address] [address] Performed By: #### 5 7021-8 #### [facility] [place] [id number] [address] [facility] [address] [place] [address] [place] Hemoglobin (Bld) [Mass/Vol] 13.6 g/dL Normal 11.5-15.5 [facility] Comment on above: Order Comment: Speci men Type: BLOOD SPECIMEN Ordering Facility: [facility] Address: [address] [place], [place] [address] [address] Performed By: #### 5 7021-8 #### [facility] [id number] [address] [facility] [address] [place] [address] [place] Immature granulocytes (Bld) [#/Vol] 0.08 10*3/uL Normal <0.10 [facility] Comment on above: Order Comment: Speci men Type: BLOOD SPECIMEN Ordering Facility: [facility] Address: [address] [place] [phone] Performed By: #### 5 7021-8 #### [facility] [id number] [address] [facility] [address] [place] [address] [place] Immature granulocytes/100 WBC (Bld) 1.1 % Normal [facility] Comment on above: Order Comment: Speci men Type: BLOOD SPECIMEN Ordering Facility: [facility] Address: [address] [place] [address] [place] [address] Performed By: #### 5 7021-8 #### [facility] [id number] [address] [facility] [address] [place] [address] [place] Lymphocytes (Bld) [#/Vol] 1.28 10*3/uL Normal 1.00-4.00 [facility] Comment on above: Order Comment: Speci men Type: BLOOD SPECIMEN Ordering Facility: [facility] Address: [address] [place] [phone] Performed By: #### 5 7021-8 #### [facility] [place] [id number] [address] [place] [address] [facility] Lymphocytes/100 WBC (Bld) 18.2 % Normal [facility] Comment on above: Order Comment: Speci men Type: BLOOD SPECIMEN Ordering Facility: [facility] Address: [address] [place] [phone] Performed By: #### 5 7021-8 #### [facility] [id number] [address] [facility] [facility] [address] [place] [phone] [place] [address] [place] MCH (RBC) [Entitic mass] 32.7 pg Normal 26.0-34.0 [facility] Comment on above: Order Comment: Speci men Type: BLOOD SPECIMEN Ordering Facility: [facility] Address: [address] [place] [phone] Performed By: #### 5 7021-8 #### [facility] [id number] 7337 [facility] [address] [place] [address] [place] MCHC (RBC) [Mass/Vol] 34.0 g/dL Normal 30.5-36.0 [facility] Comment on above: Order Comment: Speci men Type: BLOOD SPECIMEN Ordering Facility: [facility] Address: [address] [place] [phone] Performed By: #### 5 7021-8 #### [facility] [id number] [address] [facility] [facility] [address] [place] [address] [facility] MCV (RBC) [Entitic vol] 96.2 fL Normal 80.0-100.0 M [facility] Comment on above: Order Comment: Speci men Type: BLOOD SPECIMEN Ordering Facility: [facility] Address: [address] [place] [phone] Performed By: #### 5 7021-8 #### [facility] [id number] 7[address] [facility] [facility] [address] [place] [address] [place] Monocytes (Bld) [#/Vol] 0.83 10*3/uL Normal <0.87 [facility] Comment on above: Order Comment: Speci men Type: BLOOD SPECIMEN Ordering Facility: [facility] Address: [address] [place] [phone] Performed By: #### 5 7021-8 #### [facility] CLIA [id number] [address] [facility] [address] [place] [address] [place] Monocytes/100 WBC (Bld) 11.8 % Normal [facility] Comment on above: Order Comment: Speci men Type: BLOOD SPECIMEN Ordering Facility: [facility] Address: [address] [place] [phone] Performed By: #### 5 7021-8 #### [facility] CLIA [id number] [address] [facility] [address] [place] [address] [place] Neutrophils (Bld) [#/Vol] 4.40 10*3/uL Normal 1.45-7.50 [facility] Comment on above: Order Comment: Speci men Type: BLOOD SPECIMEN Ordering Facility: [facility] Address: [address] [place] [phone] Performed By: #### 5 7021-8 #### [facility] CLIA [id number] [address] [facility] [address] [place] [address] [place] Neutrophils/100 WBC (Bld) 62.5 % Normal [facility] Comment on above: Order Comment: Speci men Type: BLOOD SPECIMEN Ordering Facility: [facility] Address: [address] [place] [phone] Performed By: #### 5 7021-8 #### [facility] CLIA [id number] 7337 [facility] [address] [place] [address] [place] Nucleated RBC (Bld) [#/Vol] 10*3/uL Normal <0.01 [facility] Comment on above: Order Comment: Speci men Type: BLOOD SPECIMEN [facility] Address: [address] [place], [place] [address] [place] [address] Performed By: #### 5 7021-8 #### [facility] CLIA [id number] [address] [facility] [address] [place] [address] [place] [facility] Nucleated RBC/100 WBC (Bld) [Ratio] 0.0 /[address] [facility] Comment on above: Order Comment: Speci men Type: BLOOD SPECIMEN Ordering Facility: [facility] Address: [address] [place] [phone] Performed By: #### 5 7021-8 #### [facility] CLIA [id number] [address] [place] [address] [place] [address] [place] Platelet mean volume (Bld) [Entitic vol] 9.1 fL Normal 9.0-12.7 [facility] Comment on above: Order Comment: Speci men Type: BLOOD SPECIMEN Ordering Facility: [facility] Address: [address] [place] [phone] Performed By: #### 5 7021-8 #### [facility] [id number] [address] [place] [address] [place] [address] [place] Platelets (Bld) [#/Vol] 181 10*3/uL Normal 150-400 [facility] Comment on above: Order Comment: Speci men Type: BLOOD SPECIMEN Ordering Facility: [facility] [employer] [facility] Address: [address] [place] [phone] Performed By: #### 5 7021-8 #### [facility] CLIA [id number] [address] [facility] [address] [place] [address] [place] RBC (Bld) [#/Vol] 4.16 10*6/uL Normal 3.90-5.20 [facility] Comment on above: Order Comment: Speci men Type: BLOOD SPECIMEN Ordering Facility: [facility] Address: [address] [place] [phone] Performed By: #### 5 7021-8 #### [facility] CLIA [id number] [address] [facility] [facility] [address] [place] [address] [place] WBC (Bld) [#/Vol] 7.04 10*3/uL Normal 3.70-11.00 [facility] Comment on above: Order Comment: Brenda garcia Type: BLOOD SPECIMEN Ordering Facility: [facility] Address: [address] [place] [phone] Performed By: #### 5 7021-8 #### [facility] CLIA [id number] [address] [facility] [address] [place] [address] [place] Cholesterol in LDL Direct as say [Mass/Vol]on 06-13-2023 Cholesterol in LDL [Mass/Vol] 35 mg/dL Normal <100 [facility] Comment on above: Order Comment: Brenda garcia Type: BLOOD SPECIMEN Ordering Facility: [facility] Address: [address] [place] [phone] Result Comment: <100 mg/dL, Optimal 100-129 mg/dL, Near optimal/above optimal 130-159 mg/dL, Borderline high 160-189 mg/dL, High >189 mg/dL, Very high Secondary prevention optimal LDL Cholesterol levels are recommended to be < 70 mg/dL Performed By: #### 2 4323-8, 3016-3, 1988-12 #### [facility] CLIA [id number] [address] [place] [address] [place] #### 78632-8 #### [facility] CLIA [id number] [address] [place] [address] [place] [facility] CLIA [id number] 7337 [employer] [facility] [address] [place] [address] [place] #### 75996-4 #### [facility] CLIA [id number] [address] [address] [place] Comprehensive metabolic 2000 panelon 06-13-2023 Albumin [Mass/Vol] 3.6 g/dL Normal 3.2-5.0 [facility] Comment on above: Order Comment: Speci men Type: BLOOD SPECIMEN Ordering Facility: [facility] Address: [address] [place] [phone] Performed By: #### 2 4323-8, 3015-12, 1988-12 #### [facility] CLIA [id number] [address] [place] [address] [place] #### 83853-2 #### [facility] CLIA [id number] [address] [place], [place] [address] [place] [facility] CLIA [id number] [address] [place] #### 34258-4 #### [facility] CLIA [id number] [address] [place] [address] [place] ALP [Catalytic activity/Vol] 58 U/L Normal 45-117 [facility] Comment on above: Order Comment: Speci men Type: BLOOD SPECIMEN Ordering Facility: [facility] Address: [address] [place] [phone] Performed By: #### 2 4323-8, 3015-12, 1988-12 #### [facility] CLIA [id number] [address] [place], [place] [address] [place] #### 01609-2 #### [facility] CLIA [id number] [address] [place], [place] [address] [place] [facility] CLIA [id number] [address]337 [facility] [place] [address] [place] #### 98687-8 #### [facility] CLIA [id number] [address] [place], [place] [address] [place] ALT [Catalytic activity/Vol] 31 U/L Normal 13-61 [facility] Comment on above: Order Comment: Speci men Type: BLOOD SPECIMEN Ordering Facility: [facility] Address: [address] [place] [phone] Result Comment: Resu lts may be falsely depressed after the administration of Sulfasalazine and/or Sulfapyridine. Performed By: #### 2 4323-8, 3015-12, 1988-12 #### [facility] CLIA [id number] [address] [place] [address] [place] #### 25464-2 #### [facility] CLIA [id number] [address] [place], [place] [address] [place] [facility] CLIA [id number] [address] [place] #### 90219-2 #### [facility] CLIA [id number] [address] [place] [address] STATES OF [facility] Anion gap [Moles/Vol] 12 mmol/L Normal 5-16 [facility] Comment on above: Order Comment: Speci men Type: BLOOD SPECIMEN Ordering Facility: [facility] Address: [address] [place] [phone] Performed By: #### 2 4323-8, 3015-12, 1988-12 #### [facility] CLIA [id number] [address] [place] [address] [place] #### 21968-5 #### [facility] CLIA [id number] [address] [place], [place] [address] [place] [facility] CLIA [id number] 7337 [facility] [address] [place] #### 05655-9 #### [facility] CLIA [id number] [address] [place] [address] [place] AST [Catalytic activity/Vol] 19 U/L Normal 8-34 [facility] Comment on above: Order Comment: Speci radha Type: BLOOD SPECIMEN Ordering Facility: [facility] Address: [address] [place] [phone] Result Comment: Resu lts may be falsely depressed after the administration of Sulfasalazine and/or Sulfapyridine. Performed By: #### 2 4323-8, 3016-3, 1988-12 #### [facility] CLIA [id number] [address] [place] [address] [place] #### 12487-9 #### [facility] CLIA [id number] [address] [place], [place] [address] [place] [facility] CLIA [id number] [address]337 [place] [address] [place] #### 85812-3 #### [facility] CLIA [id number] [address] [place] Bilirubin [Mass/Vol] 0.3 mg/dL Normal 0.2-1.0 [facility] Comment on above: Order Comment: Brenda garcia Type: BLOOD SPECIMEN Ordering Facility: [facility] Address: [address] [place] [phone] Performed By: #### 2 4323-8, 3015-3, 1988-12 #### [facility] CLIA [id number] [address] [place] [address] [place] #### 00181-1 #### [facility] CLIA [id number] [address] [place], [place] [address] [place] [facility] CLIA [id number] [address] [place] [address] [place] #### 74858-7 #### [facility] CLIA [id number] [address] [place] [address] [place] Calcium [Mass/Vol] 10.2 mg/dL Normal 8.5-10.5 [facility] Comment on above: Order Comment: Speci men Type: BLOOD SPECIMEN Ordering Facility: [facility] Address: [address] [place] [phone] Performed By: #### 2 4323-8, 3015-12, 1988-12 #### [facility] CLIA [id number] [address] [place] [address] [place] #### 81041-7 #### [facility] CLIA [id number] [address] [place] [address] [place] [facility] CLIA [id number] [address] [place] [address] [place] #### 78034-5 #### [facility] CLIA [id number] [address] [place] [address] [place] Chloride [Moles/Vol] 102 mmol/L Normal 98-107 [facility] Comment on above: Order Comment: Speci men Type: BLOOD SPECIMEN Ordering Facility: [facility] Address: [address] [place] [phone] Performed By: #### 2 4323-8, 3015-12, 1988-12 #### [facility] CLIA [id number] [address] [place] [address] [place] #### 06944-1 #### [facility] CLIA [id number] [address] [place], [place] [address] [place] [facility] CLIA [id number] [address] [place] [address] [place] #### 01136-1 #### [facility] CLIA [id number] [address] [place] [address] [place] CO2 [Moles/Vol] 27 mmol/L Normal 21-32 [facility] Comment on above: Order Comment: Speci men Type: BLOOD SPECIMEN Ordering Facility: [facility] Address: [address] [place], [place] [address] [address] Performed By: #### 2 4323-8, 3015-12, 1988-12 #### [facility] CLIA [id number] [address] [place], [place] [address] [place] #### 66553-1 #### [facility] CLIA [id number] [address] [place], [place] [address] [place] [facility] CLIA [id number] [address] [place] [address] [place] #### 43891-6 #### [facility] CLIA [id number] [address] [place] [address] [place] Creatinine [Mass/Vol] 1.07 mg/dL High 0.51-0.95 [facility] Comment on above: Order Comment: Speci men Type: BLOOD SPECIMEN Ordering Facility: [facility] Address: [address] [place] [phone] Result Comment: Jenifer ents receiving either N-Acetylcysteine (NAC) or Metamizole prior to venipuncture, may have falsely depressed results. Performed By: #### 2 4323-8, 3015-12, 1988-12 #### [facility] CLIA [id number] [address] [place] [address] [place] #### 91747-9 #### [facility] CLIA [id number] [address] [place], [place] [address] [place] [facility] CLIA [id number] [address] [place] [address] [place] #### 61147-8 #### [facility] CLIA [id number] [facility] [place] [address] [place] Creatinine and Glomerular filtration rate.predicted panel (S/P/Bld) 54 mL/min/1.73m??? Low >=60 [facility] Comment on above: Order Comment: Brenda garcia Type: BLOOD SPECIMEN [facility] Address: [address] [place], [place] [address] [place] [address] Result Comment: Gabriella mated Glomerular Filtration Rate [...] By: #### 2 4323-8, 3016-3, 1988-12 #### [facility] CLIA [id number] [address] [place] [address] [place] #### 19008-9 #### [facility] CLIA [id number] [address] [place] [address] [place] [facility] CLIA [id number] 7337 [facility] [address] [place] [address] [place] #### 19429-1 #### [facility] CLIA [id number] [address] [address] [place] Glucose [Mass/Vol] 190 mg/dL High 70-100 [facility] Comment on above: Order Comment: Brenda garcia Type: BLOOD SPECIMEN [facility] Address: [address] [place] [phone] Result Comment: The [place] Diabetes Association (ADA) provides guidance for cutoff [...] Standards of Medical Care in Diabetes 2016, [place] Diabetes Association. Diabetes Care. 2016.39(Suppl 1). Results may be falsely elevated after the administration of Sulfapyridine. Results may be falsely depressed after the administration of Sulfasalazine. Performed By: #### 2 432-8, 3015-12, 1988-12 #### [facility] CLIA [id number] [address] [place] [address] [place] #### 23835-8 #### [facility] CLIA [id number] [address] [place], [place] [address] [place] [facility] CLIA [id number] [address] [place] [address] [place] #### 50402-3 #### [facility] CLIA [id number] [address] [place] [address] [place] Potassium [Moles/Vol] 3.9 mmol/L Normal 3.5-5.1 [facility] Comment on above: Order Comment: Speci men Type: BLOOD SPECIMEN Ordering Facility: [facility] [employer] Address: [address] [place] [phone] Performed By: #### 2 4328, 3015-12, 1988-12 #### [facility] CLIA [id number] [address] [place] [address] [place] #### 83652-2 #### [facility] CLIA [id number] [address] [place], [place] [address] [place] [facility] CLIA [id number] [address] [place] [address] [place] #### 76787-6 #### [facility] CLIA [id number] [address] [place] [address] [place] Protein [Mass/Vol] 6.6 g/dL Normal 6.0-8.5 [facility] Comment on above: Order Comment: Speci men Type: BLOOD SPECIMEN Ordering Facility: [facility] Address: [address] [place] [phone] Performed By: #### 2 4323-8, 3015-12, 1988-12 #### [facility] CLIA [id number] [address] [place] [address] [place] #### 90167-5 #### [facility] CLIA [id number] [address] [place] [address] [place] [facility] CLIA [id number] [address] [place] [address] [place] #### 50971-5 #### [facility] CLIA [id number] [address] [place] [address] [place] Sodium [Moles/Vol] 141 mmol/L Normal 136-145 [facility] Comment on above: Order Comment: Speci men Type: BLOOD SPECIMEN Ordering Facility: [facility] Address: [address] [place] [phone] Performed By: #### 2 4323-8, 3015-12, 1988-12 #### [facility] CLIA [id number] [address] [place], [place] [address] [place] #### 18590-7 #### [facility] CLIA [id number] [address] [place] [address] [place] [facility] CLIA [id number] [address] [place] [address] [place] #### 58618-3 #### [facility] CLIA [id number] [address] [place] [id number] [place] Urea nitrogen [Mass/Vol] 16 mg/dL Normal 7-26 [facility] Comment on above: Order Comment: Brenda garcia Type: BLOOD SPECIMEN Ordering Facility: [facility] Address: [address] [place], [place] [address] [address] Performed By: #### 2 4323-8, 3016-3, 1988- #### [facility] CLIA [id number] [address] [place] [address] [place] #### 18690-4 #### [facility] CLIA [id number] [address] [place] [address] [place] [facility] CLIA [id number] [address] [facility] [address] [place] [address] [place] #### 11915-9 #### [facility] CLIA [id number] 9500 [facility] [address] [address] [place] HbA1c (Bld)on 06-13-2023 Average glucose Estimated from glycated hemoglobin (Bld) [Mass/Vol] 171 mg/dL Normal [facility] Comment on above: Order Comment: Brenda garcia Type: BLOOD SPECIMEN Ordering Facility: [facility] Address: [address] [place] [phone] Result Comment: eAG: (Estimated average glucose) is a calculated value from HgbA1c and is motor vehicle representative of the average blood glucose level in the last 2-3 month period. Performed By: #### 5 5454-3 #### [facility] CLIA [id number] [address] [place], [place] [address] [place] HbA1c (Bld) [Mass fraction] 7.6 % High 4.3-6.0 [facility] Comment on above: Order Comment: Brenda garcia Type: BLOOD SPECIMEN Ordering Facility: [facility] Address: [address] [place], [place] [address] [address] Result Comment: Amer ican Diabetes Association guidelines indicate that patients with HgbA1c in the range 5.7-6.4% are at increased risk for development of diabetes, and intervention by lifestyle modification may be beneficial. HgbA1c greater or equal to 6.5% is considered diagnostic of diabetes. Performed By: #### 5 5454-3 #### [facility] CLIA [id number] [address] [place] [address] Lipid 1995 Pnl SerPlon 06-13 Cholesterol in VLDL [Mass/Vol] Normal [facility] Comment on above: Order Comment: Speci men Type: BLOOD SPECIMEN Ordering Facility: [facility] Address: [address] [place] [phone] Result Comment: Unab le to calculate due to elevated Triglycerides. Unable to calculate due to increased Triglycerides. See LDL-Chol, Direct. Performed By: #### 2 4323-8, 3015-12, 1988-12 #### [facility] CLIA [id number] [address] [place] [address] #### 34762-5 #### [facility] CLIA [id number] [address] [place] [address] LAB CLIA [id number] 7337 [facility] [address] [place] [id number] [place] [address] [place] #### 24079-6 #### [facility] CLIA [id number] [address] [address] [place] Result Comment: Test not indicated. Lipid 1995 panelon 3 Cholesterol [Mass/Vol] 204 mg/dL High 0-199 [facility] Comment on above: Order Comment: Speci men Type: BLOOD SPECIMEN Ordering Facility: [facility] Address: [address] [place] [phone] Result Comment: <200 mg/dL, Desirable 200-239 mg/dL, Borderline high >239 mg/dL, High Performed By: #### 2 4323-8, 3015-12, 1988-12 #### [facility] CLIA [id number] [address] [place] [address] #### 81359-0 #### [facility] CLIA [id number] [address]20 [place] [address] [place] [facility] CLIA [id number] [address] [address] [place] #### 22237-4 #### [facility] CLIA [id number] [address] [address] [place] Cholesterol in HDL [Mass/Vol] 25 mg/dL Low >40 [facility] Comment on above: Order Comment: Speci men Type: BLOOD SPECIMEN Ordering Facility: [facility] Address: [address] [place] [phone] Result Comment: 40-5 9 mg/dL, Acceptable >59 mg/dL, High: Negative risk factor for coronary heart disease <40 mg/dL, Low: Positive risk factor for coronary heart disease Performed By: #### 2 4323-8, 3, 1988-12 #### [facility] CLIA [id number] [address] [place] [address] [place] #### 06813-5 #### [facility] CLIA [id number] [address] [place] [address] [place] [facility] CLIA [id number] [address] [address] [place] #### 76356-7 #### [facility] CLIA [id number] [facility] [address] [address] [place] Cholesterol in LDL [Mass/Vol] Normal [facility] Comment on above: Order Comment: Speci men Type: BLOOD SPECIMEN Ordering Facility: [facility] Address: [address] [place] [phone] Result Comment: Unab le to calculate due to elevated Triglycerides. Unable to calculate due to increased Triglycerides. See LDL-Chol, Direct. Performed By: #### 2 4323-8, 3015-3, 1988-12 #### [facility] CLIA [id number] [address] [place] [address] [place] #### 27947-7 #### [facility] CLIA [id number] 1320 [place] [address] [place] [facility] CLIA [id number] 7337 [facility] [address] [place] [address] [place] #### 81276-1 #### [facility] CLIA [id number] 9500 [facility] [address] [place] Cholesterol in LDL/Cholesterol in HDL [Mass ratio] Normal [facility] Comment on above: Order Comment: Speci men Type: BLOOD SPECIMEN Ordering Facility: [employer] Address: [address] [place] [phone] Result Comment: Unab le to calculate due to elevated Triglycerides. Reference: 1. National Cholesterol Education Program ATP III Guideline At-A-Glance Quick Desk Reference: National Heart, Lung, and Blood [place]. National Institutes of Health. 2001: NIH Publication No. 01-3305. 2. An International Atherosclerosis Society position paper: global recommendations for the management of dyslipidemia: executive summary, Atherosclerosis. 2014: 232(2):410-413. Performed By: #### 2 4323-8, 3016-3, 1988-12 #### [facility] CLIA [id number] [address] [place] [address] [place] #### 66731-0 #### [facility] CLIA [id number] [address] [place] [address] [place] [facility] CLIA [id number] 7337 [facility] [address] [place] [address] [place] #### 16804-5 #### [facility] CLIA [id number] 9500 [facility] [address] [address] [place] Cholesterol non HDL [Mass/Vol] 179 mg/dL High <130 [facility] Comment on above: Order Comment: Speci men Type: BLOOD SPECIMEN [facility] Address: [address] [place], [place] [address] [place] [address] Result Comment: <130 mg/dL, Optimal 130-159 mg/dL, Near optimal/above optimal 160-189 mg/dL, Borderline high 190-219 mg/dL, High >219 mg/dL, Very high Secondary prevention optimal non HDL Cholesterol levels are recommended to be <100 mg/dL Performed By: #### 2 4323-8, 3015-3, 1988-12 #### [facility] CLIA [id number] [address] [place] [address] [place] #### 29498-7 #### [facility] CLIA [id number] [address] [place], [place] [address] [place] [facility] CLIA [id number] [address] [place] #### 61102-0 #### [facility] CLIA [id number] [address] [place] [address] [place] Cholesterol.total/Choles terol in HDL [Mass ratio] 8.16 {ratio} High <5.10 [facility] Comment on above: Order Comment: Brenda men Type: BLOOD SPECIMEN [facility] Address: [address] [place], [place] [address] [address] Performed By: #### 2 4323-8, 3, 1988-12 #### [facility] CLIA [id number] [address] [place] [address] [place] #### 66681-3 #### [facility] CLIA [id number] [address] [place], [place] [address] [place] [facility] CLIA [id number] [address] STATES [place] #### 39619-5 #### [facility] CLIA [id number] [address] [place] [address] [place] FASTING TIME [address] [facility] Comment on above: Order Comment: Brenda garcia Type: BLOOD SPECIMEN Ordering Facility: [facility] Address: [address] [place] [phone] Performed By: #### 2 4323-8, 3015-12, 1988-12 #### [facility] CLIA [id number] [address] [place] [address] [place] #### 92330-7 #### [facility] CLIA [id number] [address] [place] [address] STATES [facility] CLIA [id number] 7337 [facility] [address] STATES [place] #### 22468-5 #### [facility] CLIA [id number] [address] [place] [address] [place] Triglyceride [Mass/Vol] mg/dL High 30-149 M [facility] Comment on above: Order Comment: Brenda garcia Type: BLOOD SPECIMEN Ordering Facility: [facility] Address: [address] [place] [phone] Result Comment: <150 mg/dL, Normal 150-199 mg/dL, Borderline high 200-499 mg/dL, High >499 mg/dL, Very high Patients receiving either N-Acetylcysteine (NAC) or Metamizole prior to venipuncture, may have falsely depressed results. Performed By: #### 2 4323-8, 3015-12, 1988-12 #### [facility] CLIA [id number] [address] [place] [address] [place] #### 97215-3 #### [facility] CLIA [id number] [address] [place] [address] [place] [facility] CLIA [id number] [address] [place] [address] [place] #### 08080-2 #### [facility] CLIA [id number] [address] [place] [id number] [place] TSH SerPl-aCncon 06-13-2023 TSH Qn 4.316 m[IU]/L High 0.358-3.[address] [facility] Comment on above: Order Comment: Speci men Type: BLOOD SPECIMEN Ordering Facility: [facility] Address: [address] [place] [phone] Result Comment: 3rd generation ultra sensitive TSH. Performed By: #### 2 4323-8, 3016-3, 1988-12 #### [facility] CLIA [id number] [address] [place] [address] #### 42000-4 #### [facility] CLIA [id number] [address] [place] [address] LAB CLIA [id number] 7337 [facility] [address] [place] [address] #### 91894-6 #### [facility] CLIA [id number] [address] [place], [place] [address] [place] [facility] SMEAR REVIEWon 11-13-2021 SMEAR REVIEW Normal [facility] Comment on above: Result Comment: Leuk ocytosis with absolute eosinophilia. Possible causes include parasites, allergies, asthma, malignancies, and autoimmune disorders. Mild thrombocytopenia. Consider ITP, infection, autoimmune diseases, malignancy and therapy effect. Reviewed by Julian Kaplan D.O., Pathologist. 11/13/21 [id number] Performed By: #### L 500.01488, L500.66023, L500.37987, L550.09256, L500.02274 #### [facility] [address] [place] [address] CBC W/DIFFon 11-12-2021 BASO ABS 0.12 K/CU MM Normal 0-0.2 [facility] Comment on above: Performed By: #### L 500.64799, L500.72335, L500.62800, L550.70295, L500.61832 #### [facility] [address] [place] [address] Basophils/100 WBC (Bld) 1.0 % Normal 0-2 M [facility] Comment on above: Performed By: #### L 500.76666, L500.00153, L500.39569, L550.25609, L500.60643 #### [facility] [address] [place] [address] EOS ABS 5.22 K/CU MM High 0-0.5 [facility] Comment on above: Performed By: #### L 500.77695, L500.47125, L500.96274, L550.30958, L500.08480 #### [facility] [address] [place] [address] Eosinophils/100 WBC (Bld) 45.0 % High 0-5 [facility] Comment on above: Performed By: #### L 500.32381, L500.35002, L500.64716, L550.33130, L500.81328 #### [facility] [address] [place] [address] LYMPH ABS 1.62 K/CU MM Normal 0.9-4.4 [facility] Comment on above: Performed By: #### L 500.44369, L500.83260, L500.66835, L550.17610, L500.19228 #### [facility] [address] [place] [address] Lymphocytes/100 WBC (Bld) 14.0 % Low 20-40 [facility] Comment on above: Performed By: #### L 500.22561, L500.45383, L500.99776, L550.43042, L500.06221 #### [facility] [address] [place] [address] MONO ABS 0.23 K/CU MM Normal 0.1-1.1 [facility] Comment on above: Performed By: #### L 500.61901, L500.77083, L500.34977, L550.23600, L500.89539 #### [facility] [address] [place] [address] Monocytes/100 WBC (Bld) 2.0 % Normal 2-10 [facility] Comment on above: Performed By: #### L 500.63104, L500.71878, L500.25001, L550.51962, L500.68708 #### [facility] [address] [place] [address] NEUTROPHIL ABS 4.41 K/CU MM Normal 2.0-8.3 [facility] Comment on above: Performed By: #### L 500.60678, L500.51806, L500.86350, L550.93876, L500.33286 #### [facility] [address] [place] [address] Neutrophils/100 WBC (Bld) 38.0 % Low 45-75 [facility] Comment on above: Performed By: #### L 500.20694, L500.90093, L500.83049, L550.21247, L500.94238 #### [facility] [address] [place] [address] PLT EST SLT DECREASED Normal [facility] Comment on above: Performed By: #### L 500.90555, L500.19109, L500.32012, L550.44986, L500.25761 #### [facility] [address] [place] [address] POIK 1+ Normal [facility] Comment on above: Performed By: #### L 500.02366, L500.36612, L500.20224, L550.93861, L500.81326 #### [facility] [address] [place] [address] POLY 1+ Normal [facility] Comment on above: Performed By: #### L 500.17705, L500.02802, L500.88784, L550.78092, L500.44505 #### [facility] [address] [place] [address] Erythrocyte distribution width (RBC) [Ratio] 14.5 % Normal 11-14.5 [facility] Comment on above: Performed By: #### L 500.30094, L500.66378, L500.26034, L550.68900, L500.46089 #### [facility] [address] [place] [address] Hematocrit (Bld) [Volume fraction] 39.2 % Normal 35.0-47.0 [facility] Comment on above: Performed By: #### L 500.90792, L500.75640, L500.74714, L550.63527, L500.93293 #### [facility] [address] [place] [address] Hemoglobin (Bld) [Mass/Vol] 12.9 g/dL Normal 11.5-15.5 [facility] Comment on above: Performed By: #### L 500.61333, L500.80540, L500.63961, L550.84470, L500.30373 #### [facility] [address] [place] [address] MCHC (RBC) [Mass/Vol] 32.9 g/dL Normal 32.0-36.0 [facility] Comment on above: Performed By: #### L 500.98755, L500.77513, L500.17878, L550.91746, L500.30484 #### [facility] [address] [place] [address] MCV (RBC) [Entitic vol] 96.1 fL Normal 80.0-99.0 M [facility] Comment on above: Performed By: #### L 500.71058, L500.11077, L500.34003, L550.76188, L500.49579 #### [facility] [address] [place] [address] Nucleated RBC/100 WBC (Bld) [Ratio] 0.0 % Normal Less than 1 [facility] Comment on above: Performed By: #### L 500.14313, L500.50599, L500.96992, L550.89339, L500.04957 #### [facility] [address] [place] [address] Platelet mean volume (Bld) [Entitic vol] 9.7 fL Normal 9.4-12.4 [facility] Comment on above: Performed By: #### L 500.28705, L500.74279, L500.29038, L550.30689, L500.13622 #### [facility] [address] [place] [address] PLT 143 K/CU MM Low 150-450 [facility] Comment on above: Performed By: #### L 500.48386, L500.17337, L500.23629, L550.74494, L500.21351 #### [facility] [address] [place], [place] [address] RBC 4.08 M/CU MM Normal 3.90-5.30 [facility] Comment on above: Performed By: #### L 500.82005, L500.05503, L500.12247, L550.72397, L500.33715 #### [facility] [address] [place] [address] WBC 11.6 K/CUMM High 4.5-11.0 [facility] Comment on above: Performed By: #### L 500.52440, L500.40387, L500.10655, L550.15561, L500.30854 #### [facility] [address] [place] [address] CMPon 11-12-2021 Albumin [Mass/Vol] 3.9 g/dL Normal 3.2-5.0 [facility] Comment on above: Performed By: #### L 500.43306, L500.08048, L500.41834, L550.14840, L500.16344 #### [facility] [address] [place] [address] Albumin/Globulin [Mass ratio] 1.3 {ratio} Normal 0.8-2.0 [facility] Comment on above: Performed By: #### L 500.72942, L500.04721, L500.25284, L550.82190, L500.49775 #### [facility] [address] [place] [address] ALK PHOS 59 U/L Normal 45-117 [facility] Comment on above: Performed By: #### L 500.82749, L500.31987, L500.67662, L550.06826, L500.80921 #### [facility] [address] [place], [place] [address] ALT [Catalytic activity/Vol] 21 U/L Normal 13-61 [facility] Comment on above: Result Comment: RESU LTS MAY BE FALSELY DEPRESSED AFTER THE ADMINISTRATION OF SULFASALAZINE AND/OR SULFAPYRIDINE. Performed By: #### L 500.31123, L500.39770, L500.39132, L550.92335, L500.65021 #### [facility] [place] [address] Anion gap [Moles/Vol] 7 mmol/L Normal 5-16 [facility] Comment on above: Performed By: #### L 500.26807, L500.64885, L500.90047, L550.43127, L500.78795 #### [facility] [address] [place] [address] AST [Catalytic activity/Vol] 20 U/L Normal 8-34 [facility] Comment on above: Result Comment: RESU LTS MAY BE FALSELY DEPRESSED AFTER THE ADMINISTRATION OF SULFASALAZINE AND/OR SULFAPYRIDINE. Performed By: #### L 500.75860, L500.01546, L500.21756, L550.51401, L500.25200 #### [facility] [address] [place] [address] BILI TOTAL 0.30 MG/DL Normal 0.2-1.0 [facility] Comment on above: Performed By: #### L 500.13663, L500.82978, L500.37174, L550.63858, L500.81698 #### [facility] [place] [id number] Calcium [Mass/Vol] 10.3 mg/dL Normal 8.5-10.5 [facility] Comment on above: Result Comment: NOTE NEW NORMAL RANGE DUE TO REAGENT CHANGE Performed By: #### L 500.04046, L500.29500, L500.35800, L550.05090, L500.79908 #### [facility] [address] [place], [place] [address] Chloride [Moles/Vol] 104 mmol/L Normal 98-107 [facility] Comment on above: Performed By: #### L 500.73032, L500.19540, L500.42416, L550.13977, L500.30540 #### [facility] [place] [address] CO2 [Moles/Vol] 28.0 mmol/L Normal 21-32 [facility] Comment on above: Performed By: #### L 500.43602, L500.70670, L500.31652, L550.55764, L500.60108 #### [facility] [address] [place] [address] Creatinine [Mass/Vol] 1.15 mg/dL High 0.510- 0.95 0 [facility] Comment on above: Result Comment: Jenifer ents receiving either N-Acetylcysteine (NAC) or Metamizole prior to venipuncture, may have falsely depressed results. Performed By: #### L 500.07231, L500.29843, L500.05415, L550.90618, L500.07225 #### [facility] [address] [place] [address] Globulin (S) [Mass/Vol] 3.0 g/dL Normal 2.2-4.2 M [facility] Comment on above: Performed By: #### L 500.25774, L500.46045, L500.31304, L550.26825, L500.71331 #### [facility] [address] [place] [address] Glucose [Mass/Vol] 149 mg/dL High 70-100 [facility] Comment on above: Result Comment: 70-1 00- Normal Fasting; 100-125 Impaired Fasting; greater than 126 on more than one result- Diabetes. ADA guidelines. Results may be falsely elevated after the administration of Sulfapyridine. Results may be falsely depressed after the administration of Sulfasalazine. Performed By: #### L 500.05127, L500.00639, L500.30385, L550.84065, L500.40248 #### [facility] [address] [place] [address] Potassium [Moles/Vol] 4.6 mmol/L Normal 3.5-5.1 [facility] Comment on above: Performed By: #### L 500.70851, L500.10556, L500.72061, L550.48849, L500.04264 #### [facility] [place] [address] Protein [Mass/Vol] 6.9 g/dL Normal 6.0-8.5 [facility] Comment on above: Performed By: #### L 500.21416, L500.85365, L500.00440, L550.43105, L500.05763 #### [facility] [address] [place] [address] Sodium [Moles/Vol] 139 mmol/L Normal 136-145 [facility] Comment on above: Performed By: #### L 500.64056, L500.11982, L500.75811, L550.93221, L500.39453 #### [facility] [address] [place] [address] Urea nitrogen [Mass/Vol] 24 mg/dL Normal 7-26 [facility] Comment on above: Performed By: #### L 500.14046, L500.45752, L500.77725, L550.28692, L500.79532 #### [facility] [address] [place], [place] [address] Urea nitrogen/Creatinine [Mass ratio] 21 mg/mg Normal 15-24 [facility] Comment on above: Performed By: #### L 500.82253, L500.09240, L500.74724, L550.16004, L500.75400 #### [facility] [address] [place] [address] GFR ESTon 11-12-2021 IF AMER 56 Normal [facility] Comment on above: Performed By: #### L 500.10524, L500.99558, L500.14257, L550.35631, L500.92200 #### [facility] [address] [place], [place] [address] IF non-AFR AMER 46 Normal [facility] Comment on above: Performed By: #### L 500.84679, L500.56411, L500.00349, L550.28570, L500.74437 #### [facility] [address] [place] [address] HGB A1C GLYCOHBon 11-12-2021 HbA1c (Bld) [Mass fraction] 7.0 % High 4.3-6.0 [facility] Comment on above: Performed By: #### L 500.40575, L500.75127, L500.49625, L550.74341, L500.96852 #### [facility] [address] [place] [address] LIPIDon 11-12-2021 CHOL 125 MG/dL Normal 0-199 [facility] Comment on above: Performed By: #### L 500.54127, L500.12462, L500.43053, L550.66077, L500.91337 #### [facility] [address] [place], [place] [address] Cholesterol in HDL [Mass/Vol] 32 mg/dL Low GREATER THAN 40 [facility] Comment on above: Result Comment: Jenifer ents receiving Metamizole prior to venipuncture, may have falsely depressed results. Performed By: #### L 500.07767, L500.62769, L500.88847, L550.54616, L500.49952 #### [facility] [address] [place] [address] Cholesterol in LDL [Mass/Vol] 48 mg/dL Normal [facility] Comment on above: Result Comment: ___C HOLESTEROL/HDL RATIO RISK___ CHD RISK = Total CHOL LDL HDL (CHOL/HDL) Recommended <200 <130 >40 <3.4 Borderline 200-239 130-159 3.4-4.99 High >240 >160 >5.0 Performed By: #### L 500.66640, L500.60695, L500.94185, L550.05685, L500.82927 #### [facility] [address] [place] [address] Triglyceride [Mass/Vol] 225 mg/dL High 30-149 [facility] Comment on above: Result Comment: Jenifer ents receiving either N-Acetylcysteine (NAC) or Metamizole prior to venipuncture, may have falsely depressed results. Performed By: #### L 500.46464, L500.92780, L500.43167, L550.28112, L500.81504 #### [facility] [address] [place] [address] TSHon 11-12-2021 TSH 2.885 UIU/ML Normal 0.358-3.74 0 [facility] Comment on above: Result Comment: 3rd generation ultra sensitive TSH Performed By: #### L 500.69334, L500.83162, L500.36862, L550.55474, L500.39881 #### [facility] [address] [place] [address] T-SPOT TBon 08-03-2021 T-SPOT RESULT Negative Normal NEGATIVE [facility] Comment on above: Order Comment: T-SPO T SENT TO [facility] 07/31/21 1001 EVELIA SCHUSTER Result Comment: [...] as a quantitative test. TESTING PERFORMED AT [email or web address], [address] [place] [address] TESTING PERFORMED BY [email or web address], [address] [place] [address]. Performed By: #### L 500.10308, L500.43947, L500.19089, L550.61136, L500.80689 #### [facility] [address] [place] [address] CBC W/DIFFon 06-11-2021 EOS ABS 3.31 K/CU MM High 0-0.5 [facility] Comment on above: Performed By: #### L 500.35070, L500.03859, L500.26566, L550.28054, L500.69905 #### [facility] [address] [place] [address] Eosinophils/100 WBC (Bld) 29.0 % High 0-5 [facility] Comment on above: Performed By: #### L 500.69185, L500.32877, L500.60664, L550.75210, L500.07283 #### [facility] [address] [place] [address] HYPO 1+ Normal [facility] Comment on above: Performed By: #### L 500.12242, L500.07423, L500.77782, L550.58083, L500.74543 #### [facility] [address] [place] [address] LYMPH ABS 1.37 K/CU MM Normal 0.9-4.4 [facility] Comment on above: Performed By: #### L 500.76126, L500.08694, L500.82393, L550.31380, L500.68087 #### [facility] [address] [place] [address] Lymphocytes/100 WBC (Bld) 12.0 % Low 20-40 [facility] Comment on above: Performed By: #### L 500.81288, L500.45852, L500.26157, L550.86773, L500.02112 #### [facility] [address] [place] [address] MONO ABS 0.57 K/CU MM Normal 0.1-1.1 [facility] Comment on above: Performed By: #### L 500.98621, L500.82714, L500.78345, L550.14671, L500.85448 #### [facility] [address] [place] [address] Monocytes/100 WBC (Bld) 5.0 % Normal 2-10 M [facility] Comment on above: Performed By: #### L 500.25248, L500.72623, L500.55777, L550.89882, L500.69798 #### [facility] [address] [place] [address] NEUTROPHIL ABS 6.16 K/CU MM Normal 2.0-8.3 [facility] Comment on above: Performed By: #### L 500.21462, L500.79325, L500.76008, L550.56238, L500.05502 #### [facility] [address] [place] [address] Neutrophils/100 WBC (Bld) 54.0 % Normal 45-75 [facility] Comment on above: Performed By: #### L 500.54314, L500.15516, L500.00457, L550.71290, L500.99872 #### [facility] [address] [place] [address] PLT EST ADEQUATE Normal [facility] Comment on above: Performed By: #### L 500.20603, L500.30597, L500.56741, L550.52113, L500.31526 #### [facility] [address] [place] [address] POIK 1+ Normal [facility] Comment on above: Performed By: #### L 500.98651, L500.91768, L500.95613, L550.33371, L500.01069 #### [facility] [address] [place] [address] POLY 1+ Normal [facility] Comment on above: Performed By: #### L 500.96715, L500.22497, L500.73595, L550.16937, L500.23188 #### [facility] [address] [place] [address] Erythrocyte distribution width (RBC) [Ratio] 14.2 % Normal 11-14.5 [facility] Comment on above: Performed By: #### L 500.41234, L500.25218, L500.48734, L550.13483, L500.28924 #### [facility] [address] [place] [address] Hematocrit (Bld) [Volume fraction] 40.3 % Normal 35.0-47.0 [facility] Comment on above: Performed By: #### L 500.56417, L500.91103, L500.14493, L550.55916, L500.10621 #### [facility] [address] [place] [address] Hemoglobin (Bld) [Mass/Vol] 12.8 g/dL Normal 11.5-15.5 [facility] Comment on above: Performed By: #### L 500.49938, L500.12594, L500.17165, L550.88180, L500.46112 #### [facility] [address] [place] [address] MCHC (RBC) [Mass/Vol] 31.8 g/dL Low 32.0-36.0 [facility] Comment on above: Performed By: #### L 500.96227, L500.38185, L500.22875, L550.34776, L500.27514 #### [facility] [address] [place] [address] MCV (RBC) [Entitic vol] 97.6 fL Normal 80.0-99.0 [facility] Comment on above: Performed By: #### L 500.60908, L500.52906, L500.23781, L550.44163, L500.01827 #### [facility] [address] [place] [address] Nucleated RBC/100 WBC (Bld) [Ratio] 0.0 % Normal Less than 1 [facility] Comment on above: Performed By: #### L 500.72473, L500.21610, L500.02768, L550.18952, L500.34997 #### [facility] [address] [place] [address] Platelet mean volume (Bld) [Entitic vol] 9.7 fL Normal 9.4-12.4 [facility] Comment on above: Performed By: #### L 500.16952, L500.44114, L500.09675, L550.85181, L500.06114 #### [facility] [address] [place] [address] PLT 153 K/CU MM Normal 150-450 [facility] Comment on above: Performed By: #### L 500.02125, L500.67186, L500.89011, L550.42437, L500.69544 #### [facility] [address] [place], [place] [address] RBC 4.13 M/CU MM Normal 3.90-5.30 [facility] Comment on above: Performed By: #### L 500.38005, L500.98965, L500.65462, L550.26127, L500.76928 #### [facility] [address] [place], [place] [address] WBC 11.4 K/CUMM High 4.5-11.0 [facility] Comment on above: Performed By: #### L 500.68633, L500.54504, L500.65796, L550.86729, L500.21401 #### [facility] [address] [place] [address] CMPon 06-11-2021 Albumin [Mass/Vol] 3.9 g/dL Normal 3.2-5.0 [facility] Comment on above: Performed By: #### L 500.78509, L500.92976, L500.58419, L550.59013, L500.11221 #### [facility] [address] [place] [address] Albumin/Globulin [Mass ratio] 1.3 {ratio} Normal 0.8-2.0 [facility] Comment on above: Performed By: #### L 500.46959, L500.13120, L500.09751, L550.71064, L500.47622 #### [facility] [address] [place], [place] [address] ALK PHOS 48 U/L Normal 45-117 [facility] Comment on above: Performed By: #### L 500.52806, L500.80400, L500.12605, L550.70290, L500.87418 #### [facility] [address] [place] [address] ALT [Catalytic activity/Vol] 21 U/L Normal 13-61 [facility] Comment on above: Result Comment: RESU LTS MAY BE FALSELY DEPRESSED AFTER THE ADMINISTRATION OF SULFASALAZINE AND/OR SULFAPYRIDINE. Performed By: #### L 500.51966, L500.44445, L500.32342, L550.65797, L500.40038 #### [facility] [address] [place] [address] Anion gap [Moles/Vol] 10 mmol/L Normal 5-16 [facility] Comment on above: Performed By: #### L 500.25992, L500.88107, L500.32757, L550.12512, L500.43938 #### [facility] [place] [address] AST [Catalytic activity/Vol] 29 U/L Normal 8-34 [facility] Comment on above: Result Comment: RESU LTS MAY BE FALSELY DEPRESSED AFTER THE ADMINISTRATION OF SULFASALAZINE AND/OR SULFAPYRIDINE. Performed By: #### L 500.78035, L500.06381, L500.67197, L550.62374, L500.33155 #### [facility] [address] [place] [address] BILI TOTAL 0.30 MG/DL Normal 0.2-1.0 [facility] Comment on above: Performed By: #### L 500.83317, L500.29807, L500.73783, L550.43162, L500.94430 #### [facility] [address] [place] [address] Calcium [Mass/Vol] 10.0 mg/dL Normal 8.5-10.5 [facility] Comment on above: Result Comment: NOTE NEW NORMAL RANGE DUE TO REAGENT CHANGE Performed By: #### L 500.66200, L500.98644, L500.94023, L550.41850, L500.98117 #### [facility] [address] [place] [address] Chloride [Moles/Vol] 104 mmol/L Normal 98-107 [facility] Comment on above: Performed By: #### L 500.88067, L500.52921, L500.19282, L550.70730, L500.28829 #### [facility] [address] [place] [address] CO2 [Moles/Vol] 27.0 mmol/L Normal 21-32 [facility] Comment on above: Performed By: #### L 500.86149, L500.92638, L500.55301, L550.04677, L500.08452 #### [facility] [address] [place] [address] Creatinine [Mass/Vol] 1.13 mg/dL High 0.510- 0.95 0 [facility] Comment on above: Result Comment: Jenifer ents receiving either N-Acetylcysteine (NAC) or Metamizole prior to venipuncture, may have falsely depressed results. Performed By: #### L 500.81403, L500.21317, L500.52508, L550.99290, L500.60462 #### [facility] [address] [place] [address] Globulin (S) [Mass/Vol] 2.9 g/dL Normal 2.2-4.2 [facility] Comment on above: Performed By: #### L 500.33380, L500.35364, L500.72414, L550.26381, L500.00695 #### [facility] [address] [place] [address] Glucose [Mass/Vol] 154 mg/dL High 70-100 [facility] Comment on above: Result Comment: 70-1 00- Normal Fasting; 100-125 Impaired Fasting; greater than 126 on more than one result- Diabetes. ADA guidelines. Results may be falsely elevated after the administration of Sulfapyridine. Results may be falsely depressed after the administration of Sulfasalazine. Performed By: #### L 500.83663, L500.00799, L500.72343, L550.70330, L500.23687 #### [facility] [address] [place] [id number] Potassium [Moles/Vol] 4.3 mmol/L Normal 3.5-5.1 [facility] Comment on above: Performed By: #### L 500.30412, L500.18867, L500.24181, L550.17009, L500.46554 #### [facility] [address] [place] [address] Protein [Mass/Vol] 6.8 g/dL Normal 6.0-8.5 [facility] Comment on above: Performed By: #### L 500.38480, L500.06815, L500.56860, L550.97073, L500.11208 #### [facility] [address] [place] [address] Sodium [Moles/Vol] 141 mmol/L Normal 136-145 [facility] Comment on above: Performed By: #### L 500.72512, L500.00546, L500.75443, L550.55523, L500.81243 #### [facility] [address] [place] [address] Urea nitrogen [Mass/Vol] 19 mg/dL Normal 7-26 [facility] Comment on above: Performed By: #### L 500.64173, L500.24239, L500.30618, L550.55809, L500.75886 #### [facility] [address] [place] [address] Urea nitrogen/Creatinine [Mass ratio] 17 mg/mg Normal 15-24 [facility] Comment on above: Performed By: #### L 500.24468, L500.65407, L500.99977, L550.48475, L500.40349 #### [facility] [address] [place] [address] GFR ESTon 06-11-2021 IF AMER 57 Normal [facility] Comment on above: Performed By: #### L 500.38922, L500.48726, L500.05825, L550.00589, L500.47258 #### [facility] [address] [place] [address] IF non-AFR AMER 47 Normal [facility] Comment on above: Performed By: #### L 500.85626, L500.33828, L500.96536, L550.89842, L500.75776 #### [facility] [place] [address] HGB A1C GLYCOHBon 06-11-2021 HbA1c (Bld) [Mass fraction] 7.3 % High 4.3-6.0 [facility] Comment on above: Performed By: #### L 500.23185, L500.71947, L500.86067, L550.99224, L500.93087 #### [facility] [address] [place] [address] LIPIDon 06-11-2021 CHOL 111 MG/dL Normal 0-199 [facility] Comment on above: Performed By: #### L 500.71251, L500.39826, L500.43297, L550.64209, L500.28260 #### [facility] [address] [place] [address] Cholesterol in HDL [Mass/Vol] 25 mg/dL Low GREATER THAN 40 [facility] Comment on above: Result Comment: Jenifer ents receiving Metamizole prior to venipuncture, may have falsely depressed results. Performed By: #### L 500.78782, L500.13052, L500.66022, L550.06286, L500.01051 #### [facility] [address] [place] [address] Cholesterol in LDL [Mass/Vol] 44 mg/dL Normal [facility] Comment on above: Result Comment: ___C HOLESTEROL/HDL RATIO RISK___ CHD RISK = Total CHOL LDL HDL (CHOL/HDL) Recommended <200 <130 >40 <3.4 Borderline 200-239 130-159 3.4-4.99 High >240 >160 >5.0 Performed By: #### L 500.92837, L500.02136, L500.87242, L550.53393, L500.13506 #### [facility] [address] [place] [address] Triglyceride [Mass/Vol] 210 mg/dL High 30-149 [facility] Comment on above: Result Comment: Jenifer ents receiving either N-Acetylcysteine (NAC) or Metamizole prior to venipuncture, may have falsely depressed results. Performed By: #### L 500.15483, L500.14321, L500.76833, L550.73373, L500.58467 #### [facility] [address] [place] [address] TSHon 06-11-2021 TSH 2.034 UIU/ML Normal 0.358-3.74 0 [facility] Comment on above: Result Comment: 3rd generation ultra sensitive TSH Performed By: #### L 500.92705, L500.52608, L500.82456, L550.70883, L500.09854 #### [facility] [place] [address] UR MICROALB RDMon 06-11-2021 Creatinine [Mass/Vol] 41.90 mg/dL Normal 22.00- 328. 00 [facility] Comment on above: Performed By: #### L 650.63856 #### [facility] [address] [place] [address] U ALB/CRE RATIO 11.00 UG/MGCR Normal 0.00-30.00 [facility] Comment on above: Performed By: #### L 650.01261 #### [facility] [address] [place] [address] UR MICROALB RDM 5.0 MG/L Normal 0.0-19.0 [facility] Comment on above: Performed By: #### L 650.95473 #### [facility] [address] [place] [address] LLPC00-LWUMVVTuy 06-11-2021 TWUL03-NJBQUQA 90.4 NG/ML Normal 30.0-100.0 [facility] Comment on above: Result Comment: Defi ciency Less than 20 ng/mL Insufficiency 20 - Less than 30 ng/mL Sufficiency 30 - 100 ng/mL Performed By: #### L 500.94606, L500.72262, L500.81370, L550.55216, L500.93093 #### [facility] [address] [place] [address] CMPon 02-16-2021 Albumin [Mass/Vol] 4.0 g/dL Normal 3.2-5.0 [facility] Comment on above: Performed By: #### L 500.34588, L550.05982, L500.60291, L500.68020, L500.96655 #### [facility] [address] [place] [address] Albumin/Globulin [Mass ratio] 1.7 {ratio} Normal 0.8-2.0 [facility] Comment on above: Performed By: #### L 500.92636, L550.23380, L500.36400, L500.66356, L500.39646 #### [facility] [place] [address] ALK PHOS 53 U/L Normal 45-117 [facility] Comment on above: Performed By: #### L 500.08053, L550.10642, L500.74756, L500.04367, L500.13020 #### [facility] [address] [place] [address] ALT [Catalytic activity/Vol] 18 U/L Normal 13-61 [facility] Comment on above: Result Comment: RESU LTS MAY BE FALSELY DEPRESSED AFTER THE ADMINISTRATION OF SULFASALAZINE AND/OR SULFAPYRIDINE. Performed By: #### L 500.70259, L550.00265, L500.95671, L500.76960, L500.77789 #### [facility] [address] [place] [address] Anion gap [Moles/Vol] 10 mmol/L Normal 5-16 [facility] Comment on above: Performed By: #### L 500.36053, L550.68348, L500.78885, L500.11537, L500.51957 #### [facility] [address] [place] [address] AST [Catalytic activity/Vol] 19 U/L Normal 8-34 [facility] Comment on above: Result Comment: RESU LTS MAY BE FALSELY DEPRESSED AFTER THE ADMINISTRATION OF SULFASALAZINE AND/OR SULFAPYRIDINE. Performed By: #### L 500.75534, L550.34370, L500.86418, L500.86209, L500.27634 #### [facility] [address] [place] [address] BILI TOTAL 0.40 MG/DL Normal 0.2-1.0 [facility] Comment on above: Performed By: #### L 500.15637, L550.87849, L500.24320, L500.08109, L500.00306 #### [facility] [place] [address] Calcium [Mass/Vol] 10.0 mg/dL Normal 8.5-10.5 [facility] Comment on above: Result Comment: NOTE NEW NORMAL RANGE DUE TO REAGENT CHANGE Performed By: #### L 500.74815, L550.77395, L500.33800, L500.32504, L500.01441 #### [facility] [address] [place] [address] Chloride [Moles/Vol] 107 mmol/L Normal 98-107 [facility] Comment on above: Performed By: #### L 500.79691, L550.15584, L500.96730, L500.24953, L500.47881 #### [facility] [address] [place] [address] CO2 [Moles/Vol] 26.0 mmol/L Normal 21-32 [facility] Comment on above: Performed By: #### L 500.21130, L550.16497, L500.39682, L500.51653, L500.87755 #### [facility] [address] [place] [address] Creatinine [Mass/Vol] 1.19 mg/dL High 0.510- 0.95 0 [facility] Comment on above: Result Comment: Jenifer ents receiving either N-Acetylcysteine (NAC) or Metamizole prior to venipuncture, may have falsely depressed results. Performed By: #### L 500.38391, L550.83800, L500.23710, L500.85419, L500.39366 #### [facility] [address] [place] [address] Globulin (S) [Mass/Vol] 2.4 g/dL Normal 2.2-4.2 [facility] Comment on above: Performed By: #### L 500.22779, L550.43093, L500.34751, L500.02423, L500.78894 #### [facility] [address] [place] [address] Glucose [Mass/Vol] 155 mg/dL High 70-100 [facility] Comment on above: Result Comment: 70-1 00- Normal Fasting; 100-125 Impaired Fasting; greater than 126 on more than one result- Diabetes. ADA guidelines. Results may be falsely elevated after the administration of Sulfapyridine. Results may be falsely depressed after the administration of Sulfasalazine. Performed By: #### L 500.43483, L550.40186, L500.18562, L500.50429, L500.65519 #### [facility] [address] [place] [address] Potassium [Moles/Vol] 4.7 mmol/L Normal 3.5-5.1 [facility] Comment on above: Performed By: #### L 500.40104, L550.48462, L500.99740, L500.20981, L500.21444 #### [facility] [address] [place] [address] Protein [Mass/Vol] 6.4 g/dL Normal 6.0-8.5 [facility] Comment on above: Performed By: #### L 500.03603, L550.02685, L500.90046, L500.29204, L500.85994 #### [facility] [place] [address] Sodium [Moles/Vol] 144 mmol/L Normal 136-145 [facility] Comment on above: Performed By: #### L 500.39256, L550.35069, L500.14538, L500.54288, L500.72984 #### [facility] [address] [place], [place] [address] Urea nitrogen [Mass/Vol] 20 mg/dL Normal 7-26 [facility] Comment on above: Performed By: #### L 500.55627, L550.15531, L500.97735, L500.85343, L500.85785 #### [facility] [address] [place] [address] Urea nitrogen/Creatinine [Mass ratio] 17 mg/mg Normal 15-24 [facility] Comment on above: Performed By: #### L 500.41697, L550.66670, L500.70666, L500.00785, L500.90536 #### [facility] [address] [place] [address] GFR ESTon 02-16-2021 IF AMER 54 Normal [facility] Comment on above: Performed By: #### L 500.96348, L550.29521, L500.10379, L500.67357, L500.69581 #### [facility] [address] [place] [address] IF non-AFR AMER 44 Normal [facility] Comment on above: Performed By: #### L 500.85310, L550.10867, L500.84388, L500.57578, L500.22714 #### [facility] [address] [place] [address] HGB A1C GLYCOHBon 02-16-2021 HbA1c (Bld) [Mass fraction] 7.5 % High 4.3-6.0 [facility] Comment on above: Performed By: #### L 500.57206, L500.70904, L500.35564, L550.44376, L500.29258 #### [facility] [address] [place] [address] LIPIDon 02-16-2021 CHOL 123 MG/dL Normal 0-199 [facility] Comment on above: Performed By: #### L 500.20778, L550.16094, L500.63708, L500.94620, L500.77700 #### [facility] [address] [place] [address] Cholesterol in HDL [Mass/Vol] 30 mg/dL Low GREATER THAN 40 [facility] Comment on above: Result Comment: Jenifer ents receiving Metamizole prior to venipuncture, may have falsely depressed results. Performed By: #### L 500.88528, L550.99220, L500.19822, L500.64052, L500.01860 #### [facility] [address] [place] [address] Cholesterol in LDL [Mass/Vol] 40 mg/dL Normal [facility] Comment on above: Result Comment: ___C HOLESTEROL/HDL RATIO RISK___ CHD RISK = Total CHOL LDL HDL (CHOL/HDL) Recommended <200 <130 >40 <3.4 Borderline 200-239 130-159 3.4-4.99 High >240 >160 >5.0 Performed By: #### L 500.12399, L550.68713, L500.70338, L500.45342, L500.42244 #### [facility] [address] [place], [place] [address] Triglyceride [Mass/Vol] 266 mg/dL High 30-149 [facility] Comment on above: Result Comment: Jenifer ents receiving either N-Acetylcysteine (NAC) or Metamizole prior to venipuncture, may have falsely depressed results. Performed By: #### L 500.60396, L550.50347, L500.21445, L500.44727, L500.63213 #### [facility] [address] [place], [place] [address] TSHon 02-16-2021 TSH 2.281 UIU/ML Normal 0.358-3.74 0 [facility] Comment on above: Result Comment: 3rd generation ultra sensitive TSH Performed By: #### L 500.10853, L550.63065, L500.00169, L500.63302, L500.21446 #### [facility] [address] [place], [place] [address] [id number] 02-16-2021 GWGS55-[id number] 57.9 NG/ML Normal 30.0-100.0 [facility] Comment on above: Result Comment: Defi ciency Less than 20 ng/mL Insufficiency 20 - Less than 30 ng/mL Sufficiency 30 - 100 ng/mL Performed By: #### L 500.54533, L500.82676, L500.84433, L550.99477, L500.02862 #### [facility] [address] [place] [address] CNOVon 10-24-2017 CNOV Office Visit (OTOLMN) PENNY MCKEON ([id number]) [address] [facility] Department10/24/17 1:00 PM CADEN SAUCEDA [...] normal KYLER, EAC clear Rinne Phelps AD [id number] AD + +1024Neck: no LAD; thyroid normalLymphatic: [...] side [H90.12]Order(s):CONSULT TO ENT [9008] Order #: [id number]: 1Prescriptions as of 10/24/2017 Sig: ASPIRIN 325 [...] 10/24/2017 1:23 PM >> DANIA MALIK MA Oct 24, 2017 1:23 PM [...] initiated?N/A Patient is a non-smokerLevel of Service: [facility] PATIENT VISIT LEVEL 4 [09530]Disposition: Return if symptoms worsen or fail to improve.Follow-up and Disposition History RecordedEncounter Number: [id number] Status:Closed by CADEN SAUCEDA MD on 10/24/17 Normal [facility] HISTORY PHYSICALon HISTORY PHYSICAL HNO ID: [id number] thor: Caden (Latisha) Dominiqueervice: (none)Author Type: FellowType: [...] normal KYLER, EAC clear Rinne Phelps AD [id number] AD + +1024Neck: no LAD; thyroid normalLymphatic: [...] hearinglossOrders:Office Visit on 10/24/17-CONSULT TO ENTProcedures: Normal [facility] CNOVon 08-29-2017 CNOV Office Visit (OTOLMN) PENNY MCKEON ([id number]) 1945 [facility] Time Provider Zvwnugmbyr72/27/17 3:30 PM CADEN SAUCEDA (LATISHA) OTOLMN During [...] record or letter via US mailHPI: Penny Mckeon is a 71 year old female who [...] BottleRfl: 3 CREATININE BLD [SQCRET] Order #: [id number] FUTURE COMPREHENSIVE AUDIOLOGIC EXAM [[id number]] Order #: [id number] CT BRAIN W IVCON [[id number]] Order #: [id number] FUTURE iv contrast (radiology procedure)CT Brain W [...] (around 09/26/2017).Follow-up and Disposition History RecordedEncounter Number: [id number] Status:Closed by CADEN SAUCEDA MD on 08/29/17 Normal [facility] CT TEMP BONES W IVCONon 11-2 CT TEMP BONES W IVCON * * *Final Report* * *DATE OF EXAM: Aug 29 2017 4:26PM [facility] - CT TEMP BONES W IVCON [...] THE MIDDLE EAR CAVITY AND MASTOID AIR CELLS.Head Teller: JESUSITA Transcribe Date/Time: Aug 29 2017 4:38PDictated by : GUME MCKEON MDThis examination was interpreted and the report reviewed and electronically signed by: GUME MCKEON MD on Aug 29 2017 4:45PM [id number] Normal [facility] Creatinineon 08-29-2017 Creatinine 1.21 mg/dL High 0.58-0.96 [facility] Comment on above: Performed By: #### C RET1 ####[facility] [place], [place] [phone] eGFR (non-black) 53 mL/min/{1.73_m2} Normal [facility] Comment on above: Performed By: #### C RET1 ####[place] [address] [place], [place] [phone] eGFR (non-black) [address] [facility] Comment on above: Result Comment: eGFR [...] Performed By: #### C RET1 ####[facility] [place], [place] [phone] HISTORY PHYSICALon 7 HISTORY PHYSICAL HNO ID: [id number] thor: Caden Aguilar) Dominiqueervice: (none)Author Type: FellowType: HANDPFiled: 08/29/2017 3:02 PMNote Text:CC: Patient presents with:New Patient: bilateral ear blockageConsultation requested by selffor an opinion regarding left hearing loss.My final recommendations will be communicated back to the requestingphysician by way of shared medical record or letter via [place] mailHPI: Penny Mckeon is a 71 year old female who [...] visit in 1 month???Caden Sauceda MD Normal [facility] PROGRESSon 08-29-2017 Hematocrit (HCT) HNO ID: [id number] thor: Ewa Mauro (Ct) ELISABET Barahonaervice: RadiologyAuthor Type: Clinical TechnicianType: Progress NotesFiled: 08/29/2017 4:27 PMNote Text: Radiology Service Progress NotePATIENT NAME: Penny PhilippedMRN: [id number] OF SERVICE: August 29, 2017TIME: 4:27 PMPATIENT IDENTITY VERIFICATION COMPLETED USING TWO (2) METHODS: Patientconfirmed name verbally and ID band matches..PATIENT GENDER DATA: Female. status: : NoBreastfeeding status: NO.PATIENT RELEVANT IMPLANT DATA REVIEWED: Not ApplicableRADIOLOGY DEPARTMENT: CT; Exam(s) Completed: Temporal BonesPERIPHERAL IV DATA: Site assessment: Clean,Dry and Intact, Sitedisposition DiscontinuedSIGNED BY: ROBERT GallegosNov2016 4:27 PM [facility] PROGRESS HNO ID: [id number] thor: Nurys AlmanzaRn) Jose Alfredo, CASIEervice: (none)Author Type: Registered NurseType: Progress NotesFiled: 08/29/2017 3:54 PMNote Text: Radiology Service Progress NotePATIENT NAME: Penny PhilippedMRN: [id number] OF SERVICE: August 29, 2017TIME: 3:46 PMPATIENT [...] BY: Nurys Veliz RNNov2016 3:46 PM Normal [facility] Vital Signs Date Time Vital Sign Value Performing Clinician Price goins 04-17-2025 18:20-0400 Body temperature 99.2 [degF] Dr. Laura Bowden DO Work Phone: [facility] 04-17-2025 18:20-0400 Diastolic blood pressure 90 mm[Hg] Dr. Laura Bowden DO Work Phone: [facility] 04-17-2025 18:20-0400 Heart rate 106 /min Dr. Laura Bowden DO Work Phone: [facility] 04-17-2025 18:20-0400 Respiratory rate 19 /min Dr. Laura Bowden DO Work Phone: [facility] 04-17-2025 18:20-0400 SaO2% (BldA) [Mass fraction] 93 % Dr. Laura Bowden DO Work Phone: [facility] 04-17-2025 18:20-0400 Systolic blood pressure 153 mm[Hg] Dr. Laura Bowden DO Work Phone: [facility] 04-17-2025 18:03-0400 Body height 162.[address] Laura Bowden DO Work Phone: [facility] 04-17-2025 18:03-0400 Body mass index (BMI) [Ratio] 50.6 kg/m2 Dr. Laura Bowden DO Work Phone: [facility] 04-17-2025 18:03-0400 Body weight 133.[address] Laura Bowden DO Work Phone: [facility] 01-12-2024 22:03-0400 Body mass index (BMI) [Ratio] 35.2 kg/m2 Dr. Timbo Snowden Work Phone: [facility] 01-12-2024 22:03-0400 Body weight [address] Timbo Snowden Work Phone: [facility] 01-12-2024 19:36-0400 Body height 162.[address] Timbo Snowden Work Phone: [facility] 01-12-2024 19:36-0400 Body temperature 96.1 [degF] Dr. Timbo Snowden Work Phone: [facility] 01-12-2024 19:36-0400 Diastolic blood pressure 84 mm[Hg] Dr. Timbo Snowden Work Phone: [facility] 01-12-2024 19:36-0400 Heart rate 84 /min Dr. Timbo Snowden Work Phone: [facility] 01-12-2024 19:36-0400 Respiratory rate 18 /min Dr. Timbo Snowden Work Phone: [facility] 01-12-2024 19:36-0400 SaO2% (BldA) [Mass fraction] 94 % Dr. Timbo Snowden Work Phone: [facility] 01-12-2024 19:36-0400 Systolic blood pressure 170 mm[Hg] Dr. Timbo Snowden Work Phone: [facility] 10-19-2023 13:55-0500 Body temperature 97.8 [degF] Dr. Timbo Snowden Work Phone: [facility] 10-19-2023 13:55-0500 Diastolic blood pressure 67 mm[Hg] Dr. Timbo Snowden Work Phone: [facility] 10-19-2023 13:55-0500 Heart rate 63 /min Dr. Timbo Snowden Work Phone: [facility] 10-19-2023 13:55-0500 Respiratory rate 18 /min Dr. Timbo Snowden Work Phone: [phone] [place] [address] 10-19-2023 13:55-0500 SaO2% (BldA) [Mass fraction] 100 % Dr. Timbo Snowden Work Phone: [phone] [place] [address] 10-19-2023 13:55-0500 Systolic blood pressure 163 mm[Hg] Dr. Timbo Snowden Work Phone: [facility] 10-19-2023 05:01-0500 Body mass index (BMI) [Ratio] 45.9 kg/m2 Dr. Timbo Snowden Work Phone: [facility] 10-19-2023 05:01-0500 Body weight 121.[address] Timbo Snowden Work Phone: [facility] 10-18-2023 18:54-0500 Inhaled oxygen flow rate 4 L/min Dr. Timbo Snowden Work Phone: [facility] 10-18-2023 14:28-0500 Body height 162.[address] Timbo Snowden Work Phone: [facility] 10-15-2023 20:00-0500 Body temperature 97.8 [degF] [facility] 10-15-2023 20:00-0500 Diastolic blood pressure 68 mm[Hg] [facility] 10-15-2023 20:00-0500 Heart rate 64 /min [facility] 10-15-2023 20:00-0500 Respiratory rate 16 /min [facility] 10-15-2023 20:00-0500 SaO2% (BldA) [Mass fraction] 97 % [facility] 10-15-2023 20:00-0500 Systolic blood pressure 128 mm[Hg] [facility] 10-15-2023 16:51-0500 Body height 162.56 cm [facility] 10-15-2023 16:51-0500 Body mass index (BMI) [Ratio] 49.6 kg/m2 [facility] 10-15-2023 16:51-0500 Body weight 131.08 kg [facility] Encounters Encounter Date Encounter Type Care Provider Facility Start: 04-17-2025 Admission to [facility] Dr. Tirso Vazquez DO -[facility] Start: 04-17-[address] Laura parekh DO Work Phone: [facility] Start: 06-07-2024 End: 06-07-2024 ambulatory LAURA BOWDEN Facility:[id number] Start: 03-21-2024 End: 03-21-2024 ambulatory Tomas Duarte formerly [facility] [place] Comment on above: Chronic pain of righ t knee (Primary Dx); Chronic pain of left knee; Muscle weakness (generalized); Other abnormalities of gait and mobility Start: 03-19-2024 End: 03-19-2024 ambulatory Candace Larry PT, DPT Work Phone: [facility] Comment on above: Chronic pain of righ t knee (Primary Dx); Chronic pain of left knee; Muscle weakness (generalized); Other abnormalities of gait and mobility Start: 03-16-2024 End: 03-16-2024 ambulatory Jacquelyn Odonnell SHEETER MACHINE OPERATOR Work Phone: [facility] Comment on above: Chronic pain of righ t knee (Primary Dx); Chronic pain of left knee; Muscle weakness (generalized); Other abnormalities of gait and mobility Start: 02-23-2024 End: 02-23-2024 ambulatory Blaze Alejandro PT, DPT [facility] [place] Comment on above: Chronic pain of righ t knee (Primary Dx); Chronic pain of left knee; Muscle weakness (generalized); Other abnormalities of gait and mobility Start: 02-08-2024 End: 02-08-2024 ambulatory Tomas Zena Paradaashlyn MOSLEY [facility] Comment on above: Chronic pain of righ t knee (Primary Dx); Chronic pain of left knee; Muscle weakness (generalized); Other abnormalities of gait and mobility Start: 02-06-2024 End: 02-06-2024 ambulatory Tomas Zena Gerald MOSLEY [facility] Comment on above: Chronic pain of righ t knee (Primary Dx); Chronic pain of left knee; Muscle weakness (generalized); Other abnormalities of gait and mobility Start: 02-01-2024 End: 02-01-2024 ambulatory Tomas Zena Gerald MOSLEY [facility] Comment on above: Chronic pain of righ t knee (Primary Dx); Chronic pain of left knee; Muscle weakness (generalized); Other abnormalities of gait and mobility Start: 01-30-2024 End: 01-30-2024 ambulatory Tomas Duarte PTA [facility] [facility] Comment on above: Chronic pain of righ t knee (Primary Dx); Chronic pain of left knee; Muscle weakness (generalized); Other abnormalities of gait and mobility Start: 01-25-2024 End: 01-25-2024 ambulatory Tomas Zena Paradaashlyn MOSELY [facility] Physical [facility] Comment on above: Chronic pain of righ t knee (Primary Dx); Chronic pain of left knee; Muscle weakness (generalized); Other abnormalities of gait and mobility Start: 01-23-2024 End: 01-23-2024 ambulatory Tomas Zena Gerald formerly [facility] Physical Ut [facility] Comment on above: Chronic pain of righ t knee (Primary Dx); Chronic pain of left knee; Muscle weakness (generalized); Other abnormalities of gait and mobility Start: 01-19-2024 End: 01-19-2024 ambulatory Blaze Alejandro PT, DPT [facility] Comment on above: Chronic pain of righ t knee (Primary Dx); Chronic pain of left knee; Muscle weakness (generalized); Other abnormalities of gait and mobility Start: 01-12-2024 End: 01-12-2024 Emergency department patient visit Dr. Timbo Snowden Work Phone: [facility] Work Phone: Start: 11-11-2023 ambulatory Caden Roy Facility: [facility] Start: 10-28-2023 End: 10-28-[address] Timbo Snowden Work Phone: [facility] Work Phone: Start: 10-28-2023 End: 10-28-2023 ambulatory Caden Roy Facility:[facility] Start: 10-28-2023 End: 10-28-[address] Timbo Snowden Work Phone: [facility] Work Phone: Start: 10-28-2023 End: 10-28-[address] Timbo Snowden [facility] Phone[facility] Work Phone: Start: 10-28-2023 End: 10-28-2023 ambulatory Brandie JOLLEY Facility:[facility] Start: 10-25-2023 End: 10-25-[address] Timbo Snowden Work Phone: [facility] Work Phone: Start: 10-25-2023 End: 10-25-2023 ambulatory Brandie JOLLEY Facility:[facility] Start: 10-19-2023 Non-patient / Non-visit Dr. Caity Snowden Work Phone: [facility] Work Phone: Start: 10-19-2023 Non-patient / Non-visit Dr. Caity Snowden Work Phone: [facility] Start: 10-18-2023 Non-patient / Non-visit Dr. Caity Snowden Work Phone: [facility] Start: 10-18-2023 Non-patient / Non-visit Dr. Caity Snowden Work Phone: [facility] Work Phone: Start: 10-17-2023 Non-patient / Non-visit Dr. Caity Snowden Work Phone: [facility] Start: 10-17-2023 Non-patient / Non-visit Dr. Caity Snowden Work Phone: [facility] Work Phone: Start: 10-17-2023 Non-patient / Non-visit Dr. Caity Snowden Work Phone: [facility] Start: 10-16-2023 Non-patient / Non-visit Dr. Caity Snowden Work Phone: [facility] Start: 10-15-2023 ambulatory Caden Roy Facility: [facility] Start: 10-15-2023 End: 10-19-2023 Evaluation and management of inpatient [facility] 3 Work Phone: Start: 09-09-2023 End: 09-09-2023 ambulatory LAURA BOWDEN Facility:[id number] Start: 06-17-2023 End: 06-17-2023 ambulatory GISELA LIM Facility:[id number] Start: 06-13-2023 End: 06-13-2023 ambulatory LAURA BOWDEN Facility:[id number] Start: 10-24-2017 End: 10-25-2017 Ambulatory CADEN SAUCEDA (FEL) [facility] Start: 08-29-2017 End: 09-02-2017 Ambulatory CADEN SAUCEDA (FEL) [facility] Procedures Date Procedure Procedure Detail Performing Clinician [...] Start: 06-13-2026 Diabetes Screening Diabetes Screenin g [facility] Start: 04-17-2025 Decompression of med ovidio nerve Cubital Tunnel Release (Left) [facility] Start: 04-17-2025 [facility] Start: 04-17-2025 Hospital admission, emergency, from emergency room, medical nature [facility] Start: 04-17-2025 Verification routine [facility] Start: 04-17-2025 Admission procedure [facility] Start: 04-17-2025 Microbial culture, b kacy fluid [facility] Start: 04-17-2025 Hepatic function panel [facility] Start: 04-17-2025 Anaerobic Culture Anaerobic Culture [facility] Start: 04-17-2025 Body Fluid Culture Body Fluid Cultur e [facility] Start: 04-17-2025 Microscopic observat ion [Identifier] in Unspecified specimen by Gram stain [facility] Start: 05-07-2024 End: 05-07-2024 ambulatory 05/07/2024 11:00 AM EDT OT/PT/Speech Visit [facility] [place] [address] [place] [address] Candace Larry, PT, DPT Fina [place] [address] Aquatic [facility] Physical [facility] Comment on above: Aquatic Start: 03-23-2024 End: 03-23-2024 ambulatory 03/23/2024 2:15 PM EDT OT/PT/Speech Visit [facility] Physical [place] [address] [place] [address] Lor Johnson, SHEETER MACHINE OPERATOR PT [facility] [place] Comment on above: PT Start: 03-21-2024 End: 03-21-2024 ambulatory 03/21/2024 10:30 AM EDT OT/PT/Speech Visit [facility] Physical [address] [place] [address] Tomas Duarte, SHEETER MACHINE OPERATOR Aquatic [facility] Physical [facility] Comment on above: Aquatic Start: 03-19-2024 End: 03-19-2024 ambulatory 03/19/2024 10:00 AM EDT OT/PT/Speech Visit [facility] Physical [address] [place] [address] Lor Johnson, SHEETER MACHINE OPERATOR PT [facility] Physical [facility] Comment on above: PT Start: 02-24-2024 End: 02-24-2024 ambulatory 02/24/2024 10:00 AM EDT OT/PT/Speech Visit [facility] [place] [address] [place] [address] Tomas Duarte, SHEETER MACHINE OPERATOR Aquatic [facility] [place] Comment on above: Aquatic Start: 02-23-2024 End: 02-23-2024 ambulatory 02/23/2024 10:45 AM EDT OT/PT/Speech Visit [facility] [place] [address] [place] [address] Alejandro, Blaze W, PT, DPT progress summary [facility] [place] Comment on above: progress summary Start: 02-08-2024 End: 02-08-2024 ambulatory 02/08/2024 10:30 AM EDT OT/PT/Speech [facility] [address] [place] [address] Tomas Duarte, SHEETER MACHINE OPERATOR AQUATIC [facility] [place] Comment on above: AQUATIC Start: 02-06-2024 End: 02-06-2024 ambulatory 02/06/2024 10:30 AM EDT OT/PT/Speech [facility] [address] [facility] [address] Tomas Duarte, SHEETER MACHINE OPERATOR AQUATIC [facility] [place] Comment on above: AQUATIC Start: 02-01-2024 End: 02-01-2024 ambulatory 02/01/2024 10:30 AM EDT OT/PT/Speech Visit [facility] [address] [facility] [place] [address] Tomas Duarte, SHEETER MACHINE OPERATOR AQUATIC [facility] [place] Comment on above: AQUATIC Start: 01-30-2024 End: 01-30-2024 ambulatory 01/30/2024 8:00 AM EDT OT/PT/Speech Visit [facility] [address] [facility] [place] [address] Tomas Duarte, SHEETER MACHINE OPERATOR AQUATIC [facility] [place] Comment on above: AQUATIC Start: 01-25-2024 End: 01-25-2024 ambulatory 01/25/2024 9:30 AM EDT OT/PT/Speech Visit [facility] [address] [facility] [place] [address] Tomas Duarte, SHEETER MACHINE OPERATOR AQUATIC [facility] [place] Comment on above: AQUATIC Start: 01-12-2024 [facility] Start: 10-19-2023 Patient discharge [place] Start: 10-17-2023 Serum immunofixation [facility] Start: 10-15-2023 Assessment of risk o f venous thromboembolism [facility] Start: 10-15-2023 Care regimes management [facility] Start: 10-15-2023 Fall prevention [facility] Start: 10-15-2023 Inhalation therapy procedure [facility] Start: 10-15-2023 Insertion of cathete r into peripheral vein [facility] Start: 10-15-2023 Introduction of urin ming catheter [facility] Start: 10-15-2023 Measuring intake and output [facility] Start: 10-15-2023 Notification of physician [facility] Start: 10-15-2023 Providing care accor ding to standard [facility] Start: 10-15-2023 Provision of activit y privileges [facility] Start: 10-15-2023 Referral to gastroenterology service [facility] Start: 10-15-2023 Referral to general surgeon [facility] Start: 10-15-2023 Referral to occupati onal therapist [facility] Start: 10-15-2023 Referral to service [facility] Start: 10-15-2023 [facility] Start: 10-15-2023 Following clinical p athway protocol [facility] Start: 10-15-2023 Hospital admission, emergency, from emergency room, medical nature [facility] Start: 10-15-2023 Verification routine [facility] Start: 10-15-2023 Admission procedure [facility] Start: 10-15-2023 CT of abdomen and pe lvis with oral contrast Abdomen/Pel W ORAL Cont Only [facility] Start: 10-15-2023 [facility] Start: 10-15-2023 [facility] Start: 10-15-2023 Bacteria identified in Urine by Culture Urine Culture [facility] Start: 10-15-2023 Patient referral to dietitian [facility] Start: 10-03-2023 Advance Directive Discussion Advance Directive Discussion [facility] Start: 10-03-2023 Behavioral Health Screening Be havioral Health Screening [facility] Start: 2012 Screening for osteoporosis Bon e Density Screening [facility] Start: 2007 RSV Vaccine (1 - 1-d ose 60+ series) RSV Vaccine (1 - 1-dose 60+ series) [facility] Start: 1966 Shingrix Vaccine (1 of 2) Sandhu grix Vaccine (1 of 2) [facility] Start: 1966 Urine microalbumin profile DTa P,Tdap,Td Vaccine (1 - Tdap) [facility] Start: 1965 Hepatitis C screening Hepatitis C Sc tracy [facility] Start: 1958 Screening for malign ant neoplasm of cervix Cervical Cancer Screening [facility] Start: 1952 Covid-19 Vaccine (#1) Covid-19 Vacci ne (#1) [facility] Alanine aminotransfe rase [Enzymatic activity/volume] in Serum or Plasma [facility] Albumin [Mass/volume ] in Serum or Plasma [facility] Alkaline phosphatase [Enzymatic activity/volume] in Serum or Plasma [facility] Bacteria identified in Body fluid by Culture [facility] Bacteria identified in Unspecified specimen by Anaerobe culture [facility] Bilirubin, total measurement [facility] Bilirubin.direct [Mass/volume] in Serum or Plasma [facility] Cell count of synovi al fluid [facility] Hemoglobin A1c/Hemoglobin.total in Blood [facility] Measurement of immunoglobulin A in serum specimen [facility] Pathologist review o f results [facility] Patient Education ED Contusion, Upper Extremity [facility] Work Phone: Patient referral [facility] Work Phone: Red blood cell count [facility] Specimen processing [facility] Synovial fluid examination [facility] Total protein measurement [facility] White blood cell count [facility] Payers Date Payer Category Payer Medicare [id number] 2023 Self-pay 2022 Medicare UHC MEDICARE UHC MEDICARE ADVANTAGE PPO [id number] 2022-Present [phone] [address] [address] [place] [address] PPO [id number] 2022 Unknown [id number] Unknown [id number] Unknown [id number] [id number] Unknown [id number] [id number] Unknown [id number] [id number]2 Unknown [id number] 2.16.840.1.153433.3.579.2.462 Unknown [id number] 2.16.840.1.883240.3.579.2.462 Unknown [id number] 2.16.840.1.179834.3.579.2.462 Unknown [id number] 2.16.840.1.169397.3.579.2.462 Unknown [id number] 2.16.840.1.825475.3.579.2.462 Unknown [id number] 2.16.840.1.605858.3.579.2.462 Unknown [id number] 2.16.840.1.737049.3.579.2.462 Unknown [id number] 2.16.840.1.224249.3.579.2.462 Unknown [id number] 2.16.840.1.421801.3.579.2.462 Unknown [id number] [id number] Unknown [id number] [id number] Unknown [id number] [id number] Unknown [id number] [id number] Social History Date Type Detail Facility Start: 10-15-2023 End: 01-12-2024 Tobacco smoking status AZIS Unknown if ever smoked [facility] Start: 1945 Sex Assigned At Female [facility] Start: 10-24-2017 End: 04-17-2025 Tobacco smoking status NHIS Ex-smoker [facility] End: 10-03-1994 History of tobacco use Current smoker [facility] End: 10-03-1994 History of tobacco use Cigarette Smoker [facility] Start: 10-24-2017 Tobacco use and exposure Smokeless tobacco non-user [facility] Start: 08-31-2020 End: 01-19-2024 History of Social function [facility] Start: 08-31-2020 End: 01-19-2024 Tobacco use panel [facility] National Score (1-100), lower number is lower risk 50 [facility] Start: 1945 Sex Assigned At Not on file [facility] NEGATED: Highlighted row [facility] NEGATED: Highlighted row Not [facility] Medical Equipment Procedure Code Equipment Code Equipment Origin al Text Equipment Identifier Dates Total cholecystectomy with exploration of common bile duct Plant polysaccharide haemostatic agent, bioabsorbable ([id number] FDA Start: 10-18-2023 Goals Date Patient Goal Desired Activity /State Functional Status Date Assessment Result Facility 10-19-2023 Functional status Ambulates [facility] Work Phone: Mental Status Date Assessment Result Facility 10-19-2023 Cognitive function Voice/Name [facility] Work Phone: Clinical Notes 10-15-2023 to 04-17-2025 Note Date & Type Note Facility 04-17-2025 Consult note [facility] 04-17-2025 Discharge summary [facility] 04-17-2025 Radiology Diagnostic study note [facility] Imaging Services [address] [place], [place] [address] Elbow min 3 Views MR#: [id number] Acct: [id number] Name: PENNY MCKEON Rep #: [id number] : 1945 F 79 From: Faizan Myers MD PCP: Dr. Laura Bowden, DO Status: REG E R Study:Elbow min 3 Views Date of Exam: Exam# [id number] Ordering Dr: Asuncion Wise MD PROCEDURE: ELBOW [...] changes at the elbow joint. Reading Location: [facility] CC: Dr. Sanford Wise MD; Dr. Laura Bowden DO ~ Head Teller: Signed [facility] 04-17-2025 Discharge summary Note Date/Time April 17, 2025 5:39pm [facility] Medical Records Department [address] [place] [address] Emergency Department Summary 04/17/25 MR#: [id number] Acct: [id number] Name: PENNY MCKEON Rep #:[id number] : 1945 79 From: Sanford Wise MD [...] Loss of Funtion Narrative Narrative: 79-year-old female bktsq-fxez-txzvigyy history of diabetes complains of atraumatic left [...] a normal radial pulse. 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 The distal forearm and [...] lymphadenopathy. Left hand normal touch sensation. Normal fish farm laborer strength. Normal radial pulse. General Extremety ED: [...] PO DAILY Patient Comments: TAKE 1 CAPSULE (81702 UNITS) BY MOUTH ONCE A WEEK escitalopram [...] DO [Primary Care Provider] - Print Language: Palauan Disposition Disposition: Acute Care Hospital [facility] What to do if you have Problems For any increased pain, shortness of breath, bleeding, nausea or vomiting, chestpain, or any unexpected problems, contact your Primary Care Provider. Call [facility] ([phone]) or report to the closest Emergency Room. Call 911 if necessary. 04/17/25 8728 <Electronically signed by Sanford Wise MD> Cosigner Signature (if applicable): CC: Dr. 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 - 03/21/2024 10:56 AM EDT Program_ID:[id number] Access Code: [email or web address] URL: [email or web address] Date: 03-21-2024 Prepared By: TOMAS DUARTE Program [...] on stairs Entered the pool assist level: Jenkins, With rail Entered the pool step pattern: Step to step Exited the pool: Forward on stairs Exited the pool assist level: Jenkins, With rail Exited the pool step pattern: Step to step Aquatic Therapy (96193): 5 1: walking forward, backward, lateral x [...] Home Exercise Program Assigned: 1: Access Code: [email or web address] URL: [email or web address] Date: 03/21/2024 Prepared by: TOMAS DUARTE Exercises [...] intervention Tomas Duarte PTA documented [facility]Mar[facility]24 NoteHNO ID: [id number] Author: TOMAS DUARTE PTA Service: ? Author Type: Smoke Eater Type: Progress Notes Filed: 03/21/2024 11:29 Note [...] on stairs Entered the pool assist level: Jenkins, With rail Entered the pool step pattern: Step to step Exited the pool: Forward on stairs Exited the pool assist level: Jenkins, With rail Exited the pool step pattern: Step to step Aquatic Therapy (48750): 5 1: walking forward, backward, lateral x [...] Home Exercise Program Assigned: 1: Access Code: [email or web address] URL: [email or web address] Date: 03/21/2024 Prepared by: TOMAS DUARTE Exercises [...] timed skilled physical therapy intervention Tomas Duarte [facility]06-17-2024 NoteHNO ID: [id number] Author: CANDACE LARRY PT DPT Service: ? [...] functional mobility and activities. - Not Met Jenkins in home exercise program. Status: Ongoing Patient [...] Patient to be seen for Aquatic PT (61362), Therapeutic activities (61095), Therapeutic exercise (49073), Neuromuscular re-education (71179), Gait Training (58446), Manual therapy (88933) PLAN FOR NEXT VISIT: Ensure the patient [...] with fitness staff to establish membership through [employer] Skilled Intervention: Activity progression based on professional judgment. Education as noted above Billing Therapeutic Activity Treatment Min (more content not included)...[facility]06-17-2024 History of Present illness Narrative* Candace Larry [...] functional mobility and activities. - Not Met Jenkins in home exercise program. Status: Ongoing Patient [...] Patient to be seen for Aquatic PT (00923), Therapeutic activities (20002), Therapeutic exercise (78327), Neuromuscular re-education (85445), Gait Training (73808), Manual therapy (65936) PLAN FOR NEXT VISIT: Ensure the patient [...] with fitness staff to establish membership through [employer] Skilled Intervention: Activity progression based on professional judgment. Education as noted above Billing Therapeutic Activity Treatment Minutes: 17 Skilled Treatment Time Minutes (timed and untimed codes): 17 Total Session Time (minutes): 17 Session Start Time : 1417 Session Stop Time : 1434 Candace Larry PT, DPT documented in this encounterMarion [facility]06-14-2024 NoteHNO ID: [id number] Author: JACQUELYN ODONNELL PTA Service: ? Author Type: Smoke Eater Type: Progress Notes Filed: 03/16/2024 15:08 Note [...] 1422 Session Stop Time : 1502 [facility] History of Present illness Narrative* Blas Jacquelyn, [facility] - 03/16/2024 2:22 PM EDT Episode [...] 1502 Jacquelyn Odonnell PTA documented in this encounterMarion Hospital05-23-2024 NoteHNO ID: [id number] Author: BLAZE ALEJANDRO PT, DPT Service: ? [...] functional mobility and activities. - Not Met Jenkins in home exercise program. Patient will decrease [...] Patient to be seen for Aquatic PT (22692), Therapeutic exercise (56205) PLAN FOR NEXT VISIT: One more aquatic [...] plan. 3: Gated patient to follow-up with [facility] (more content not included)...[facility]05-23-2024 History of Present illness Narrative* Blaze Alejandro, [...] functional mobility and activities. - Not Met Jenkins in home exercise program. Patient will decrease [...] Patient to be seen for Aquatic PT (23481), Therapeutic exercise (91118) PLAN FOR NEXT VISIT: One more aquatic [...] Blaze Alejandro PT, DPT documented in this encounterMarion Hospital05-08-2024 NoteHNO ID: [id number] Author: TOMAS DUARTE PTA Service: ? Author Type: Smoke Eater Type: Progress Notes Filed: 02/08/2024 11:37 Note [...] on stairs Entered the pool assist level: Jenkins, With rail Entered the pool step pattern: Step to step Exited the pool: Forward on stairs Exited the pool assist level: Jenkins, With rail Exited the pool step pattern: Step to step Aquatic Therapy (75976): 5 1: walking forward, backward, lateral x [...] of timed skilled physical therapy intervention [facility] History of Present illness Narrative* Tomas Duarte [facility] - 02/08/2024 10:21 AM EDT Episode [...] on stairs Entered the pool assist level: Jenkins, With rail Entered the pool step pattern: Step to step Exited the pool: Forward on stairs Exited the pool assist level: Jenkins, With rail Exited the pool step pattern: Step to step Aquatic Therapy (79778): 5 1: walking forward, backward, lateral x [...] intervention Tomas Duarte PTA documented in this encounterMarion Hospital05-06-2024 NoteHNO ID: [id number] Author: TOMAS DUARTE PTA Service: ? Author Type: Smoke Eater Type: Progress Notes Filed: 02/06/2024 11:37 Note [...] on stairs Entered the pool assist level: Jenkins, With rail Entered the pool step pattern: Step to step Exited the pool: Forward on stairs Exited the pool assist level: Jenkins, With rail Exited the pool step pattern: Step to step Aquatic Therapy (70870): 5 1: walking forward, backward, lateral x [...] of timed skilled physical therapy intervention [facility] History of Present illness Narrative* Gerald Tomas Zena, [facility] - 02/06/2024 10:56 AM EDT Episode [...] on stairs Entered the pool assist level: Jenkins, With rail Entered the pool step pattern: Step to step Exited the pool: Forward on stairs Exited the pool assist level: Jenkins, With rail Exited the pool step pattern: Step to step Aquatic Therapy (82772): 5 1: walking forward, backward, lateral x [...] intervention Tomas Duarte PTA documented in this encounterMarion Hospital05-01-2024 NoteHNO ID: [id number] Author: TOMAS DUARTE PTA Service: ? Author Type: Smoke Eater Type: Progress Notes Filed: 02/01/2024 12:03 Note [...] on stairs Entered the pool assist level: Jenkins, With rail Entered the pool step pattern: Step to step Exited the pool: Forward on stairs Exited the pool assist level: Jenkins, With rail Exited the pool step pattern: Step to step Aquatic Therapy (42410): 5 1: walking forward, backward, lateral x [...] timed skilled physical therapy intervention Tomas Duarte, [facility]05-01-2024 History of Present illness Narrative* Tomas Duarte, [facility] - 02/01/2024 10:20 AM EDT Episode [...] on stairs Entered the pool assist level: Jenkins, With rail Entered the pool step pattern: Step to step Exited the pool: Forward on stairs Exited the pool assist level: Jenkins, With rail Exited the pool step pattern: Step to step Aquatic Therapy (92274): 5 1: walking forward, backward, lateral x [...] of timed skilled physical therapy intervention Tomas Duatre PTA [facility]24 NoteHNO ID: [id number] Author: TOMAS DUARTE PTA Service: ? Author Type: Smoke Eater Type: Progress Notes Filed: 01/30/2024 09:29 Note [...] on stairs Entered the pool assist level: Jenkins, With rail Entered the pool step pattern: Step to step Exited the pool: Forward on stairs Exited the pool assist level: Jenkins, With rail Exited the pool step pattern: Step to step Aquatic Therapy (24692): 5 1: walking forward, backward, lateral x [...] timed skilled physical therapy intervention Tomas Duarte, [facility]04-29-2024 History of Present illness Narrative* Tomas Duarte, [facility] - 01/30/2024 7:55 AM EDT Episode [...] on stairs Entered the pool assist level: Jenkins, With rail Entered the pool step pattern: Step to step Exited the pool: Forward on stairs Exited the pool assist level: Jenkins, With rail Exited the pool step pattern: Step to step Aquatic Therapy (48752): 5 1: walking forward, backward, lateral x [...] intervention Tomas Duarte PTA documented in [facility]Mar[facility]04-24-2024 NoteHNO ID: [id number] Author: TOMAS DUARTE PTA Service: ? Author Type: Smoke Eater Type: Progress Notes Filed: 01/25/2024 10:20 Note [...] on stairs Entered the pool assist level: Jenkins, With rail Entered the pool step pattern: Step to step Exited the pool: Forward on stairs Exited the pool assist level: Jenkins, With rail Exited the pool step pattern: Step to step Aquatic Therapy (97337): 5 1: walking forward, backward, lateral x [...] of exercises was facilitated with verbal cueing. [facility] Aquatic Therapy Treatment Minutes: 30 Skilled Treatment Time Minutes (timed and untimed codes): 45 Total Session Time (minutes): 48 Session Start Time : 928 Session Stop Time : 1016 Patient participated in 30 minutes of timed skilled physical therapy intervention Tomas Duarte, [facility]04-24-2024 History of Present illness Narrative* Tomas Duarte, [employer] - 01/25/2024 9:29 AM EDT Episode Visit [...] on stairs Entered the pool assist level: Jenkins, With rail Entered the pool step pattern: Step to step Exited the pool: Forward on stairs Exited the pool assist level: Jenkins, With rail Exited the pool step pattern: Step to step Aquatic Therapy (73715): 5 1: walking forward, backward, lateral x [...] intervention Tomas Duarte PTA documented in [facility]Mar[facility]04-22-2024 NoteHNO ID: [id number] Author: TOMAS DUARTE PTA Service: ? Author Type: Smoke Eater Type: Progress Notes Filed: 01/23/2024 12:21 Note [...] on stairs Entered the pool assist level: Jenkins, With rail Entered the pool step pattern: Step to step Exited the pool: Forward on stairs Exited the pool assist level: Jenkins, With rail Exited the pool step pattern: Step to step Aquatic Therapy (09908): 5 1: walking forward, backward, lateral x [...] [facility] of Present illness Narrative* Tomas Duarte, [facility] - 01/23/2024 11:19 AM EDT Episode [...] on stairs Entered the pool assist level: Jenkins, With rail Entered the pool step pattern: Step to step Exited the pool: Forward on stairs Exited the pool assist level: Jenkins, With rail Exited the pool step pattern: Step to step Aquatic Therapy (74918): 5 1: walking forward, backward, lateral x [...] intervention Tomas Duarte PTA documented in this encounterMar[facility]04-18-2024 NoteHNO ID: [id number] Author: BLAZE ALEJANDRO PT, DPT Service: ? [...] standing duration for functional mobility and activities. Jenkins in home exercise program. Patient will decrease [...] Planned: 8 Planned Treatment Interventions: Aquatic PT (43546), Therapeutic exercise (33217) PLAN FOR NEXT VISIT: Exercises for hip [...] Best Pain Level: 0 (more content not included)...[facility]04-18-2024 History of Present illness Narrative* Blaze Alejandro [...] standing duration for functional mobility and activities. Jenkins in home exercise program. Patient will decrease [...] Planned: 8 Planned Treatment Interventions: Aquatic PT (75251), Therapeutic exercise (71814) PLAN FOR NEXT VISIT: Exercises for hip [...] Education/Teach Back: States/Identifies TREATMENT: PT Treatment Interventions: Self-Custodial Management Evaluation Self-Custodial Management: 1: Educated patient on pathology of [...] Blaze Alejandro PT DPNj documented in this [facility]Mar[facility]04-11-2024 Discharge summary Author Dandy Bueno [facility] January 12, 2024 9:54pm Note Date/Time January 12, 2024 9:4 5pm [facility] Medical Records Department [address] [place] [address] Emergency Department Summary 01/12/24 MR#: [id number] Acct: [id number] Name: PENNY MCKEON Rep #:[id number] : 1945 78 From: Dandy Bueno MD [...] 24 hr (Myrbetriq) 25 mg PO Q24H Ljbmbqw31/13/24 [History Last Taken Unknown] montelukast 10 mg [...] PO DAILY Patient Comments: TAKE 1 CAPSULE (21637 UNITS) BY MOUTH ONCE A WEEK escitalopram [...] Primary Care Provider: Laura Bowden Referrals: Laura Bodwen DO [Primary Care Provider] - 1 Week if not improving Disposition Disposition: Home, Self Care What to do if you have Problems For any increased pain, shortness of breath, bleeding, nausea or vomiting, chestpain, or any unexpected problems, contact your Primary Care Provider. Call [facility] ([phone]) or report to the closest Emergency Room. Call 911 if necessary. 01/12/24 1070 <Electronically signed by Dandy Bueno MD> Cosigner Signature (if applicable): CC: Dr. Laura Bowden DO ~ Signed [facility] Work Phone: 1(744) 893-552501-17-2024 [facility] Medical Records Department [address] [place] [address] Discharge Summary 10/19/23 1445 MR#: [id number] Acct: [id number] Name: PENNY MCKEON Rep #: [id number] : 1945 78 From: Tirso Friend MD PCP: Dr. Laura Bowden DO Status:ADM IN [facility] Providers Date of Admission: 10/15/23 Primary Care [...] Former tobacco use who presents to the [facility] ED on 10/15/23 with history of episode [...] with right upper quadran (more content not included)...[facility]01-17-2024 Discharge summary Author Tirso Friend [facility] October 19, 2023 12:00pm Note Date/Time October 19, 2023 1 1:32am [facility] Medical Records Department [address] [place] [address] Instructions for Home/Discharge Instructions 10/19/23 1130 MR#: [id number] Acct: [id number] Name: PENNY MCKEON Rep #:[id number] : 1945 78 From: Tirso kellogg MD [...] similar medications, I would recommend transitioning tothese [id number]-vzekhpx medicines as soon as possible instead of continued use ofnarcotic pain medication. Follow up ? You should call [facility] soon after surgery, at [phone] option 1 to make a follow up [...] PO DAILY Patient Comments: TAKE 1 CAPSULE (36801 UNITS) BY MOUTH ONCE A WEEK escitalopram [...] Otoole MD; Dr. Dennise Batres MD; Dr. Larua Bowden, DO; Dr. Caden Roy MD ~ Signed [facility] Work Phone: 1(185) 954-598201-17-2024 Progress note Author Brandie Bautistaith [facility] October 19, 2023 11:35am Note Date/Time October 19, 2023 1 0:39am [facility] Medical Records Department [address] [place] [address] Progress Note - Surgery 10/19/23 1039 MR#: [id number] Acct: [id number] Name: PENNY MCKEON Rep #:[id number] : 1945 78 From: Brandie JOLLEY PA-C PCP: Dr. Laura Bowden DO Status:ADM I N Location: [place] [address] Subjective Subjective Patient evaluated sitting at the [...] 85.5 H, Lymph % (Auto) 7.8 L, Hanson % (Auto) 5.2, Eos % (Auto) 0.0, [...] in 1 week for re-evaluation Capacity Legal Claims Configuration Analyst Reflex Medical hold order details:: IF a medical hold is selected below, a suggested order for a MEDICAL HOLD will reflex upon signing the document. Next of kin: [place] law dictates a PRIORITY LIST for identifying legal decision-maker/legal next of kin in the following order (LNOK): 1st: The patient?s legal guardian, if any 2nd: The patient's spouse (if status is questionable, consult Risk Management) 3rd: The patient?s adult child(padmini) (majority, if multiple children) 4th: The patient?s parents 5th: The patient?s adult siblings (majority, if multiple children siblings) Charges/Coding Visit Charges Inpatient E&M: 19100 Subs Hosp L1 (post-op; no charge) 10/19/23 1135 <Electronically signed by Brandie JOLLEY PA-C> Cosigner Signature (if applicable): CC: ~ Signed [facility] Work Phone: 1(522) 538-877101-16-2024 Progress note Author Patric Polanco [facility] October 18, 2023 4:29pm Note Date/Time October 18, 2023 4 :29pm [facility] Medical Records Department [address] [place] [address] Progress Note - GI 10/18/23 0700 MR#: [id number] Acct: [id number] Name: PENNY MCKEON Rep #:[id number] : 1945 78 From: Patric Polanco DO PCP: Dr. Laura Bowden, DO Status:ADM I N Location: [place] [address] Subjective Subjective Patient is scheduled to go [...] (Auto) 60.9, Lymph % (Auto) 17.0 L, Hanson % (Auto) 8.3, Eos % (Auto) 9.6 [...] Cosigner Signature (if applicable): CC: ~ Signed [facility] Work Phone: 1(830) 152-558901-16-2024 Progress note Author Tirso Friend [facility] October 18, 2023 10:39am Note Date/Time October 18, 2023 1 0:40am [facility] Medical Records Department [address] [place] [address] Progress Note - Hospitalist 10/18/23 1038 MR#: [id number] Acct: [id number] Name: PENNY MCKEON Rep #:[id number] : 1945 78 From: Tirso kellogg MD PCP: Dr. Laura Bowden, DO Status:ADM I N Location: [place] [address] Subjective Subjective MRCP yesterday consistent with cholecystitis [...] (Auto) 60.9, Lymph % (Auto) 17.0 L, Hanson % (Auto) 8.3, Eos % (Auto) 9.6 [...] is on cetirizine DVT: Heparin Capacity Legal Claims Configuration Analyst Reflex Medical hold order details:: IF a medical hold is selected below, a suggested order for a MEDICAL HOLD will reflex upon signing the document. Next of kin: [place] law dictates a PRIORITY LIST for identifying legal decision-maker/legal next of kin in the following order (LNOK): 1st: The patient?s legal guardian, if any 2nd: The patient's spouse (if status is questionable, consult Risk Management) 3rd: The patient?s adult child(padmini) (majority, if multiple children) 4th: The patient?s parents 5th: The patient?s adult siblings (majority, if multiple children siblings) Charges/Coding Visit Charges Inpatient E&M: 71738 Subs Hosp L2 10/18/23 1039 <Electronically signed by Tirso Friend MD> Cosigner Signature (if applicable): CC: ~ Signed [facility] Work Phone: 1(577) 706-255301-15-2024 Consult note Author Patric Polanco [facility] October 17, 2023 4:20pm Note Date/Time October 17, 2023 4 :11pm [facility] Medical Records Department [address] [place] [address] Consultation - GI 10/17/23 1610 MR#: [id number] Acct: [id number] Name: PENNY MCKEON Rep #:[id number] : 1945 78 From: Patric Polanco DO PCP: Dr. Laura Bowden, DO Status:ADM I N Location: [place] [address] HPI Consult Data Date of Consult: 10/17/23 [...] was no choledocholithiasis seen on either image. [facility] Medical History Allergic rhinitis Anxiety and depression [...] 24 hr (Myrbetriq) 25 mg PO Q24H [place]30/13/24 [History Last Taken Unknown] montelukast 10 mg [...] % (Auto) 69.2, Lymph % (Auto) 11.9L, Hanson % (Auto) 7.7, Eos % (Auto) 9.0 [...] is pending for further workup. Capacity Legal Claims Configuration Analyst Reflex Medical hold order details:: IF a medical hold is selected below, a suggested order for a MEDICAL HOLD will reflex upon signing the document. Next of kin: [place] law dictates a PRIORITY LIST for identifying legal decision-maker/legal next of kin in the following order (LNOK): 1st: The patient?s legal guardian, if any 2nd: The patient's spouse (if status is questionable, consult Risk Management) 3rd: The patient?s adult child(padmini) (majority, if multiple children) 4th: The patient?s parents 5th: The patient?s adult siblings (majority, if multiple children siblings) Charges/Coding Visit Charges Inpatient E&M: 87274 Init Hosp L3 10/17/23 1620 <Electronically signed by Patric Polanco DO> Cosigner Signature (if applicable): CC: Dr. Enma Otoole MD; Dr. Dennise Batres MD; Dr. Laura Bowden DO; Dr. Caden Roy MD~ Signed [facility] Work Phone: 1(998) 470-293901-15-2024 Progress note Author Tirso Friend [facility] October 17, 2023 12:09pm Note Date/Time October 17, 2023 1 2:10pm [facility] Medical Records Department [address] [place] [address] Progress Note - Hospitalist 10/17/23 1208 MR#: [id number] Acct: [id number] Name: PENNY MCKEON Rep #:[id number] : 1945 78 From: Tirso kellogg MD PCP: Dr. 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 Next of kin: [place] law dictates a PRIORITY LIST for identifying legal decision-maker/legal next of kin in the following order (LNOK): 1st: The patient?s legal guardian, if any 2nd: The patient's spouse (if status is questionable, consult Risk Management) 3rd: The patient?s adult child(padmini) (majority, if multiple children) 4th: The patient?s parents 5th: The patient?s adult siblings (majority, if multiple children siblings) Charges/Coding Visit Charges Inpatient E&M: 60977 Subs Hosp L2 10/17/23 1209 <Electronically signed by Tirso Friend MD> Cosigner Signature (if applicable): CC: ~ Signed [facility] Work Phone: 1(186) 243-274601-15-2024 Progress note Author Caden Roy [facility] October 17, 2023 9:10am Note Date/Time October 17, 2023 9 :10am [facility] Medical Records Department [address] [place] [address] Progress Note - Surgery 10/17/23 0908 MR#: [id number] Acct: [id number] Name: PENNY MCKEON Rep #:[id number] : 1945 78 From: Caden Black PCP: Dr. 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 Charges/Coding Visit Charges Inpatient E&M: 00650 Subs Hosp L2 10/17/23 0910 <Electronically signed by Caden Roy MD> Cosigner Signature (if applicable): CC: ~ Signed [facility] Work Phone: 1(623) 563-134701-14-2024 Consult note Author Caden Roy [facility] October 16, 2023 2:18pm Note Date/Time October 16, 2023 8 :05am [facility] Medical Records Department [address] [place] [address] Consultation - Surgical 10/16/23 0804 MR#: [id number] Acct: [id number] Name: PENNY MCKEON Rep #:[id number] : 1945 78 From: Caden Black PCP: Dr. Laura Bowden, DO Status:ADM I N Location: [place] [address] Assessment & Plan Assessment/Plan (1) Acute calculous [...] is a 78 F who presented to [facility] after she had been found down at [...] She is also scheduled to see a airplane navigator but canceled on the account of her symptoms. Through this. If feeling poorly Mrs. Mckeon reports a weight loss of approximately 23 pounds. Patient medically has a history of hypertension, hyperlipidemia, morbid obesity,obstructive sleep apnea on CPAP, well-controlled diabetes (she states that her last A1c was 7) and chronic kidney disease stage III. She has not ever undergonea surgery. [facility] Medical History Allergic rhinitis Anxiety and depression [...] 24 hr (Myrbetriq) 25 mg PO Q24H Unbzgpz11/13/24 [History Last Taken Unknown] montelukast 10 mg [...] 83.6 H, Lymph % (Auto) 5.3 L, Hanson % (Auto) 6.0, Eos % (Auto) 3.9, [...] Clarity Clear, Urine pH 6.5, Ur Specific [place] 1.005, Urine Protein 15 H, Urine Glucose [...] 77.9 H, Lymph % (Auto) 7.6 L, Hanson % (Auto) 6.7, Eos % (Auto) 6.0 [...] EST , Charges/Coding Visit Charges Inpatient E&M: 85142 Init Hosp L2 10/16/23 1418 <Electronically signed by Caden Roy MD> Cosigner Signature (if applicable): CC: Dr. Enma Otoole MD; Dr. Laura Bowden DO; Dr. Caden Roy MD~ Signed [facility] Work Phone: 1(394) 443-716401-14-2024 Progress note Author Dennise [facility] October 16, 2023 10:35am Note Date/Time October 16, 2023 7 :37am [facility] Medical Records Department [address] [place] [address] Progress Note - Hospitalist 10/16/23 0736 MR#: [id number] Acct: [id number] Name: PENNY MCKEON Rep #:[id number] : 1945 78 From: Dennise Batres MD PCP: Dr. Laura Bodwen DO Status:ADM I N Location: [place] [address] Reason for Visit Reason for Visit: Diagnoses [...] 83.6 H, Lymph % (Auto) 5.3 L, Hanson % (Auto) 6.0, Eos % (Auto) 3.9, [...] Clarity Clear, Urine pH 6.5, Ur Specific [place] 1.005, Urine Protein 15 H, Urine Glucose [...] 77.9 H, Lymph % (Auto) 7.6 L, Hanson % (Auto) 6.7, Eos % (Auto) 6.0 [...] documentation, 50minutes Charges/Coding Visit Charges Inpatient E&M: 62081 Subs Hosp L3 10/16/23 1035 <Electronically signed by Dennise Batres MD> Cosigner Signature (if applicable): CC: ~ Signed [facility] Work Phone: 1(932) 821-490201-14-2024 Discharge summary Author Timbo Snowden [facility] October 15, 2023 10:38pm Note Date/Time October 15, 2023 5 :13pm [facility] Medical Records Department [facility] [place] [address] [address] [place] [address] Emergency Department Summary 10/15/23 MR#: [id number] Acct: [id number] Name: PENNY MCKEON Rep #:[id number] : 1945 78 From: Timbo Snowden MD PCP: Dr. Laura Bowden, DO Status:ADM I N Location: [place] [address] HPI HPI - GI History of Present [...] she knows of. Generalized weakness started overnight. [facility] Medical History Allergic rhinitis Anxiety and depression [...] 24 hr (Myrbetriq) 25 mg PO Q24H Rjzlrxt61/13/24 [History Last Taken Unknown] montelukast 10 mg [...] 83.6 H Lymph % (Auto) 5.3 L Hanson % (Auto) 6.0 Eos % (Auto) 3.9 [...] Clarity Clear Urine pH 6.5 Ur Specific [place] 1.005 Urine Protein 15 H Urine Glucose [...] Management Discussion w/another healthcare provider: Hospitalist and [employer] (Friend (GI), Kirill (surg)) Discharge Plan Dx/Rx/DC Orders Clinical Impression: Elevated liver enzymes, Acute calculous cholecystitis, Acquired hyperbilirubinemia Disposition Disposition: Acute Care Hospital [facility] Discharge Date/Time: 10/15/23 21:21 What to do if you have Problems For any increased pain, shortness of breath, bleeding, nausea or vomiting, chestpain, or any unexpected problems, contact your Primary Care Provider. Call [facility] ([phone]) or report to the closest Emergency Room. Call 911 if necessary. 10/15/232237 <Electronically signed by Timbo Snowden MD> Cosigner Signature (if applicable): CC: Dr. Laura Bowden, DO ~ Signed [facility] Work Phone: 1(363) 720-703301-13-2024 History and physical note Author Enma Otoole [facility] October 15, 2023 8:39pm Note Date/Time October 15, 2023 8 :10pm [facility] Medical Records Department [address] [place] [address] H&P Exam - Hospitalist 10/15/232005 MR#: [id number] Acct: [id number] Name: PENNY MCKEON Rep #:[id number] : 1945 78 From: Enma Otoole MD PCP: Dr. Laura Bowden, DO Status:ADM I N Location: [place]-4 HPI - General General Date of Admission: 10/15/23 Date of Service: 10/15/23 Chief Complaint: Abdominal pain, nausea. 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 ED on10/15/23 with history of episode of [...] as Zofran 4 mg IV x 1. [facility] Medical History (Updated 10/15/23 @ 20:10 by [...] 83.6 H, Lymph % (Auto) 5.3 L, Hanson % (Auto) 6.0, Eos % (Auto) 3.9, [...] Clarity Clear, Urine pH 6.5, Ur Specific [place] 1.005, Urine Protein 15 H, Urine Glucose [...] Former tobacco use who presents to the [facility] ED on 10/15/23 with history of episode [...] 16 minutes. Charges/Coding Visit Charges Inpatient E&M: 68647 Init Hosp L3 Procedures Hospitalists Procedures: 57572 Advncd Care Plan 30 Min 10/15/232038 <Electronically signed by Enma Otoole MD> Cosigner Signature (if applicable): CC: Dr. Enma Otoole MD; Dr. Laura Bowden DO~ Signed [facility] Work Phone: Consult note Author Rubi Hardy [facility] October 19, 2023 2:33pm Note Date/Time October 19, 2023 2 :33pm [facility] Medical Records Department [address] [place] [address] Counseling Note - Pharmacy 10/19/23 1432 MR#: [id number] Acct: [id number] Name: PENNY MCKEON Rep #:[id number] : 1945 78 From: Rubi Hardy PCP: Dr. Laura Bowden, DO Status:ADM I N Y Location: [place] [address] Pharmacy [facility] Service has performed discharge [...] 24 hr (Myrbetriq) 25 mg PO Q24H Fpwnees53/13/24 montelukast 10 mg tablet 10 mg PO [...] Signature (if applicable): Date CC: ~ Signed [facility] Work Phone: Consult note Author Tirso Vazquez [facility] Note Date/Time April 17, 2025 6:45 pm [facility] Medical Records Department [address] [place] [address] Consultation - Orthopedics 04/17/25 1836 MR#: [id number] Acct: [id number] Name: PENNY MCKEON Rep #:[id number] : 1945 79 From: Tirso aldrich DO PCP: Dr. Laura Bowden, DO Status:REG S DC Location: [facility] HPI Consult Data Date of Consult: 04/17/25 HPI Narrative Reason for Consultation: Concern for left septic elbow HPI Narrative: PENNY MCKEON, is a 79 F who presents to [facility] emergency department with atraumatic left elbow pain [...] wrist. Denies history of gout or pseudogout. [facility] Medical History Hypothyroidism Anxiety and depression Allergic [...] (Auto) 66.7, Lymph % (Auto) 6.2 L, Hanson % (Auto) 8.0, Eos % (Auto) 17.9 [...] changes at the elbow joint. Reading Location: [facility] Assessment & Plan Assessment/Plan (1) Septic [...] applicable): CC: Dr. Laura Bowden DO~ Signed [facility] Work Phone: Discharge summary Author Tirso Friend [facility] October 19, 2023 2:50pm Note Date/Time October 19, 2023 2 :50pm [facility] Medical Records Department [address] [place] [address] Discharge Summary 10/19/23 1445 MR#: [id number] Acct: [id number] Name: PENNY MCKEON Rep #:[id number] : 1945 78 From: Tirso kellogg MD PCP: Dr. Laura Bowden, Status:ADM I N Location: [id number] Providers Date of Admission: 10/15/23 Primary Care Physician: Dr. Laura Bowden DO Consultations 10/15/23 21:49 Consult: Gastroenterology Routine Consulting Provider: [facility] Reason for Consult: cholecystitis/?choledocho w/ elevated [...] 24 hr (Myrbetriq) 25 mg PO Q24H Cvxkmdf99/13/24 montelukast 10 mg tablet 10 mg PO [...] is a 78 y/o F retired from [employer] w/ PMHx: Morbid obesity, HTN, HLD, Diabetes mellitus type II, [facility] [...] carbon oxide 20, BUN/creatinine 32/1.43, GFR 38, [id number], T. bili 12.50, AST/ALT 209/257, alk phos [...] will also be given a prescription for [place] to help control her pain that was [...] Results - last 24 hr 10/18/23 06:00: Ajpfr-[id number] 206 H, JANETTE-1 Antibody <0.2, SS-A/Ro IgG Antibody < 0.2, SS-B/La IgG Antibody < 0.2, Sm ([place]) Antibody <0.2, FLYING SQU[employer]ER Antibody <0.2, Scl-70 Scleroderma Ab <0.2, Double [...] 85.5 H, Lymph % (Auto) 7.8 L, Hanson % (Auto) 5.2, Eos % (Auto) 0.0, [...] similar medications, I would recommend transitioning tothese tzhe-kjz-sohgmmg medicines as soon as possible instead of continued use ofnarcotic pain medication. Follow up ? You should call [facility] soon after surgery, at [phone] option 1 to make a follow up [...] PO DAILY Patient Comments: TAKE 1 CAPSULE (25410 UNITS) BY MOUTH ONCE A WEEK escitalopram [...] Self Care Charges/Coding Visit Charges Inpatient E&M: 89245 Disch Hosp >30min 10/19/23 1450 <Electronically signed by Tirso Friend MD> Cosigner Signature (if applicable): CC: Dr. Laura Bowden DO; Dr. Tirso Friend MD~ Signed [facility] Work Phone: evaluation note* Diagnosis Onset Date Resolution Status Acquired hyperbilirubinemia acute Acute calculous cholecystitis acute Elevated liver enzymes acute [facility] Work Phone: evaluation note* Diagnosis Onset Date Resolution Status Acquired hyperbilirubinemia acute Elevated liver enzymes acute Acute calculous cholecystitis resolved S/P laparoscopic cholecystectomy acute S/P laparoscopic cholecystectomy acute [facility] Work Phone: Evaluation note* Diagnosis Chronic pain of right knee- Primary Chronic pain of left knee Pain in joint, lower leg Muscle weakness (generalized) Other abnormalities of gait and mobility [facility] Chronic pain of right knee- Primary Chronic pain of left knee Pain in joint, lower leg Muscle weakness (generalized) Other abnormalities of gait and mobility [facility] Chronic pain of right knee- Primary Chronic pain of left knee Pain in joint, lower leg Muscle weakness (generalized) Other abnormalities of gait and mobility [facility] Diagnosis Chronic pain of right knee- Primary Chronic pain of left knee Pain in joint, lower leg Muscle weakness (generalized) Other abnormalities of gait and mobility [facility] Diagnosis Chronic pain of right knee- Primary Chronic pain of left knee Pain in joint, lower leg Muscle weakness (generalized) Other abnormalities of gait and mobility [facility] Diagnosis Chronic pain of right knee- Primary Chronic pain of left knee Pain in joint, lower leg Muscle weakness (generalized) Other abnormalities of gait and mobility documented [facility] this encounter [facility] [place] [facility]* Diagnosis Onset Date Resolution Status Admit Date History of diabetes mellitus acute April 17, 2025 5:46pm Leukocytosis acute April 17, 025 5:46pm Nontraumatic pain and swelli ng of elbow acute April 17, 2025 5:46pm Septic arthritis of elbow, left acut e April 17, 2025 5:46pm [facility] Work Phone: History and physical note Author Enma Otoole [facility] October 15, 2023 8:39pm Note Date/Time October 15, 2023 8 :10pm [facility] Medical Records Department [address] [place] [address] H&P Exam - Hospitalist 10/15/232005 MR#: [id number] Acct: [id number] Name: PENNY MCKEON Rep #:[id number] : 1945 78 From: Enma Otoole MD PCP: Dr. Laura Bowden, DO Status:ADM I N [address]: [address] HPI - General General Date of Admission: 10/15/23 Date of Service: 10/15/23 Chief Complaint: Abdominal pain, nausea. 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 ED on10/15/23 with history of episode of [...] as Zofran 4 mg IV x 1. [facility] Medical History (Updated 10/15/23 @ 20:10 by [...] 83.6 H, Lymph % (Auto) 5.3 L, Hanson % (Auto) 6.0, Eos % (Auto) 3.9, [...] Clarity Clear, Urine pH 6.5, Ur Specific [place] 1.005, Urine Protein 15 H, Urine Glucose [...] Former tobacco use who presents to the [facility] ED on 10/15/23 with history of episode [...] 16 minutes. Charges/Coding Visit Charges Inpatient E&M: 08440 Init Hosp L3 Procedures Hospitalists Procedures: 97652 Advncd Care Plan 30 Min 10/15/232038 <Electronically signed by Enma Otoole MD> Cosigner Signature (if applicable): CC: Dr. Enma Otoole MD; Dr. Laura Bowden DO~ Signed [facility] Work Phone: Reason for referral (narrative)No reason for referral information availableWUniversity Hospitals [facility] Work Phone: Summary Purpose Family History Relationship Condition Age at Onset Recorded Date/T moshe mother Malignant neoplasm Unknown Diabetes mellitus Unknown father Cardiac disease Unknown Advance Directives Advance Directive Response Recorded Date/ Time Living Will No October 15 5:07pm Power of Physiotherapy Aide No October 15, 2023 5:07pm Advance Directive Response Recorded Date/ Time Name of Medical Power of Physiotherapy Aide ramy nevarez October 15, 2023 9:38pm Living Will Yes October 15 9:38pm Power of Physiotherapy Aide Yes October 15, 2023 9:38pm Advance Directive Response Recorded Date/ Time Name of Medical Power of Physiotherapy Aide ramy nevarez October 15, 2023 10:38pm Name of Medical Power of Physiotherapy Aide ANALY NEVAREZ January 12, 2024 10:04pm Living Will Yes January 12, 2024 10:04pm Power of Physiotherapy Aide Yes January 11 10:04pm Advance Directive Response Recorded Date/ Time Do you have a Healthcare Power of Physiotherapy Aide? Yes April 17, 2025 3:14pm Chief Complaint [...] section and content) DATE CREATED AUTHOR 03/27/2018 [facility] DATE CREATED AUTHOR AUTHOR'S ORGANIZ ATION 11/18/2021 [facility] [place] DATE CREATED AUTHOR AUTHOR'S ORGANIZ ATION 05/16/2024 [facility] DATE CREATED AUTHOR AUTHOR'S ORGANIZ ATION 06/11/2024 [facility] nt Care Teams (unrecognized sec tion and [...] or prosecute any alcohol or drug abuse patient.[facility] the event this information is protected by the Federal Confidentiality of Alcohol and Drug Abuse Patient Records regulations: The Federal rules restrict any use of the information to criminally investigate or prosecute any alcohol or drug abuse patient.[facility] Hospital[facility] the event this information is protected by the Federal Confidentiality of Alcohol and Drug Abuse Patient Records regulations: The Federal rules restrict any use of the information to criminally investigate or prosecute any alcohol or drug abuse patient.[facility] HospitalIn the event this information is protected by the Federal Confidentiality of Alcohol and Drug Abuse Patient Records regulations: The Federal rules restrict any use of the information to criminally investigate or prosecute any alcohol or drug abuse patient.[facility] HospitalIn the event this information is protected by the Federal Confidentiality of Alcohol and Drug Abuse Patient Records regulations: The Federal rules restrict any use of the information to criminally investigate or prosecute any alcohol or drug abuse patient.[facility] HospitalIn the event this information is protected by the Federal Confidentiality of Alcohol and Drug Abuse Patient Records regulations: The Federal rules restrict any use of the information to criminally investigate or prosecute any alcohol or drug abuse patient.[facility] HospitalIn the event this information is protected by the Federal Confidentiality of Alcohol and Drug Abuse Patient Records regulations: The Federal rules restrict any use of the information to criminally investigate or prosecute any alcohol or drug abuse patient.[facility] HospitalIn the event this information is protected by the Federal Confidentiality of Alcohol and Drug Abuse Patient Records regulations: The Federal rules restrict any use of the information to criminally investigate or prosecute any alcohol or drug abuse patient.[facility] HospitalIn the event this information is protected by the Federal Confidentiality of Alcohol and Drug Abuse Patient Records regulations: The Federal rules restrict any use of the information to criminally investigate or prosecute any alcohol or drug abuse patient.[facility] HospitalIn the event this information is protected by the Federal Confidentiality of Alcohol and Drug Abuse Patient Records regulations: The Federal rules restrict any use of the information to criminally investigate or prosecute any alcohol or drug abuse patient.[facility] HospitalIn the event this information is protected by the Federal Confidentiality of Alcohol and Drug Abuse Patient Records regulations: The Federal rules restrict any use of the information to criminally investigate or prosecute any alcohol or drug abuse patient.[facility] Reason for Visit (unrecogniz ed section [...] AQUATIC ORTHO WALK Jena Avila MD [address] [facility] [address] [address] Blaze Alejandro, PT, DPT Referral ID Status Reason Start Date Expiration Date V isits Requested Visits Authorized [id number] Authorized 10/03/2023 10/02/2024 99 99 Reason Comments [...] BE BASED ON THE PRIMARY CLINICAL RECORDS. [facility]. provides no warranty or guarantee of the accuracy or completeness of information in this document.
[2025-04-18] VITALS (7 sets, daily range): BP systolic 121–176; BP diastolic 46–94; PULSE 87–95; RESP 16–18; TEMP 36.4–37.7; O2SAT 92–97
--- NOTE | 2025-04-18 00:38 | PCM.RX.CS ---
Consult Antibiotic Management Pharmacy has been consulted to manage selected antibiotic: Vancomycin Type of Intervention Type of Consult: New start Labs Labs: Sodium 133 mmol/L (133-145) 04/17/25 14:50 Potassium 3.9 mmol/L (3.3-5.1) 04/17/25 14:50 Chloride 95 mmol/L (98-108) L 04/17/25 14:50 Carbon Dioxide 19.1 mmol/L (21.0-32.0) L 04/17/25 14:50 Anion Gap 19 (5-15) H 04/17/25 14:50 BUN 11 mg/dL (4-19) 04/17/25 14:50 Creatinine 0.98 mg/dL (0.70-1.20) 04/17/25 14:50 Est GFR (MDRD) Non-Af 59 (>60) L 04/17/25 14:50 BUN/Creatinine Ratio 10.9 RATIO (10-20) 04/17/25 14:50 Glucose 225 mg/dL (70-99) H 04/17/25 14:50 Dosing Weight Weight used for dosin.5 kg Estimated Creatinine Clearance Estimated Creatinine Clearance: 67 Goal Trough Goal Trough: 15-20 mcg/mL Pharmacy Plan for Drug Dosing Pharmacy Plan for Drug Dosing: Pharmacy Service will continue to monitor and adjust dosing as required. Follow-Up Labs Follow-Up Labs: Trough: Vancomycin Date/Time Labs Ordered Labs to be done on [date and time ordered]: 04/19/25 @0600
[2025-04-18] MEDS: Piperacil/Tazobactam 3.375 GM in 0.9% Normal Saline (50mL MB+) 50 ML IV (05:43)
[2025-04-18 05:57] LABS: Hematocrit 33.0 % (37-47); Hemoglobin 11.7 g/dL (12.0-15.0); Immature Granulocytes Count 0.100 X10^3/uL (0.0-0.0); Mean Corp Hgb Conc 35.5 g/dL (32-36); Mean Corpuscular Volume 94.6 fL (81-99); Mean Platelet Vol. 9.1 fl (6.2-12.0); NRBC Flagged by Analyzer 0 % (0-5); POSITIVE DIFFERENTIAL YES; Platelet Count 142 K/mm3 (150-450); RBC Distribution Width CV 13.1 % (11.6-14.6); RBC Distribution Width SD 45.0 fl (35.1-43.9); Red Blood Count 3.49 M/mm3 (4.2-5.4); White Blood Count 16.4 K/mm3 (4.4-11.0)
[2025-04-18 05:59] LABS: Differential Indicated SCAN CRITERIA MET
[2025-04-18] MEDS: Vancomycin HCl 1,500 MG in 0.9% Normal Saline (500mL Bag) 500 ML 250 MG IV (06:14)
[2025-04-18 06:29] LABS: Anion Gap 14 (5-15); BUN 14 mg/dL (4-19); BUN/Creat Ratio 9.3 RATIO (10-20); Calcium,Total 8.4 mg/dL (7.6-11.0); Carbon Dioxide 21.8 mmol/L (21.0-32.0); Chloride 100 mmol/L (98-108); Estimated Creatinine Clearance 43.84 ml/min (50-250); Glucose 170 mg/dL (70-99); Potassium 3.2 mmol/L (3.3-5.1)
[2025-04-18 06:44] LABS: Differential Comment SCANNED
--- NOTE | 2025-04-18 07:20 | PCM.PN.ORT ---
Subjective Subjective Patient seen and examined. Reports some soreness in her left elbow and wrist. She feels the pain is improved from last evening. Moving both joints better. Denies any fevers, chills, nausea vomiting, chest pain shortness of breath. Objective Data Objective Data Vital Signs: Vital Signs Temp Pulse Resp BP Pulse Ox O2 Del Method O2 Flow Rate 97.6 F L 90 16 149/62 H 92 Room Air 2 04/18/25 05:58 04/18/25 05:58 04/18/25 05:58 04/18/25 05:58 04/18/25 05:58 04/18/25 05:58 04/18/25 02:18 Oxygen Flow Rate (L/min) 2 Oxygen Delivery Method Room Air Weight: 303 lb 3.2 oz Body Mass Index (BMI) 52.0 Intake & Output: Intake and Output for Last 24 Hours 04/16/25 04/17/25 04/18/25 23:59 23:59 23:59 Intake Total 540 / 640 250 / 250 Output Total 100 / 100 Balance 440 / 540 250 / 250 Lab / Micro Data 04/18/25 05:13 04/18/25 05:13 Labs: Laboratory Results - last 24 hr 04/17/25 14:50: WBC 16.8 H, RBC 4.15 L, Hgb 14.0, Hct 38.9, MCV 93.7, MCH 33.7 H, MCHC 36.0, RDW Std Deviation 43.8, RDW Coeff of Jeff 12.8, Plt Count 165, MPV 12.8 H, Immature Gran % (Auto) 0.500, Neut % (Auto) 66.7, Lymph % (Auto) 6.2 L, [place] % (Auto) 8.0, Eos % (Auto) 17.9 H, Baso % (Auto) 0.7, Absolute Neuts (auto) 11.2 H, Absolute Lymphs (auto) 1.04, Nucleated RBC % 0, Differential Comment SCANNED, ESR 51 H, Sodium 133, Potassium 3.9, Chloride 95 L, Carbon Dioxide 19.1 L, Anion Gap 19 H, BUN 11, Creatinine 0.98, Est GFR (MDRD) Non-Af 59 L, BUN/Creatinine Ratio 10.9, Glucose 225 H, Hemoglobin A1c 8.4 H, Uric Acid 7.8 H, Calcium 9.5, Total Bilirubin 0.91, Direct Bilirubin 0.23, AST 20, ALT 10, Alkaline Phosphatase 60, C-React Prot Ext Range 119.00 H, Total Protein 7.7, Albumin 4.1, Globulin 3.6 04/17/25 16:48: Fluid Source Cancelled, Fluid Color Cancelled, Fluid Appearance Cancelled, Fluid WBC Cancelled, Fluid RBC Cancelled, Fluid Tot Cell Count Cancelled, Fld Polynuclear WBCs # Cancelled, Fld Polynuclear WBCs % Cancelled, Fluid Mononuclear WBCs Cancelled, Fld Mononuclear WBCs % Cancelled, Fluid Neutrophils Cancelled, Fluid Lymphocytes Cancelled, Fluid Monocytes Cancelled, Fluid Plasma Cells Cancelled, Fluid Macrophages Cancelled, Fld Mesothelial Cells Cancelled, Fluid Other Cells Cancelled, Fl Pathologist Comment Cancelled, Fluid Comment 2 Cancelled, Synovial Source LEFT ELBOW, Synovial Color Red, Synovial Appearance Turbid, Synovial WBC 53.9600 H, Synovial RBC 0.104 H, Synovial Tot Cell Ct 54.0300 H, Synov Polynuclear WBCs 29.794, Synov Mononuclear WBCs 1.289, Synovial Neutrophils 88 H, Synovial Lymphocytes 1, Synovial Monocytes 11, Synovial Polynuclear % 95.9, Synovial Mononuclear % 4.1, Synovial Path Comment May follow 04/17/25 20:17: POC Glucose 217 H 04/17/25 23:35: POC Glucose 251 H 04/18/25 05:13: WBC 16.4 H, RBC 3.49 L, Hgb 11.7 L, Hct 33.0 L, MCV 94.6, MCH 33.5 H, MCHC 35.5, RDW Std Deviation 45.0 H, RDW Coeff of Jeff 13.1, Plt Count 142 L, MPV 9.1, Immature Gran % (Auto) 0.600, Neut % (Auto) 59.2, Lymph % (Auto) 10.0 L, [place] % (Auto) 9.0, Eos % (Auto) 20.7 H, Baso % (Auto) 0.5, Absolute Neuts (auto) 9.7 H, Absolute Lymphs (auto) 1.64, Nucleated RBC % 0, Differential Comment SCANNED, Sodium 136, Potassium 3.2 L, Chloride 100, Carbon Dioxide 21.8, Anion Gap 14, BUN 14, Creatinine 1.49 H, Estim Creat Clear Calc 43.84 L, Est GFR (MDRD) Non-Af 36 L, BUN/Creatinine Ratio 9.3 L, Glucose 170 H, Calcium 8.4 04/18/25 06:23: POC Glucose 185 H Radiography Diagnostic Testing: Radiology Impression Elbow X-Ray 04/17/25 14:33 IMPRESSION: No fracture or dislocation. Degenerative changes at the elbow joint. Reading Location: [facility] Physical Exam Narrative General - A&Ox3, NAD. Vital signs are stable with Tmax of 100.6 Fahrenheit overnight Upper Extremity - SILT & 5/5 in radial, ulnar, musculocutaneous, axillary, and median nerve distributions. Radial, ulnar pulses 2+. Compartments soft and compressible. BCR in finger tips. Incisional dressing C/D/I. Dressing removed. Minimal swelling. Erythematous rash on the dorsal left hand and wrist is faint. Cardinal motions of the left hand are intact. Tolerating active and passive range of motion left elbow and wrist. Endrange pain is noted. Assessment & Plan Assessment/Plan (1) Septic arthritis of elbow, left: PLAN: POD# 1 s/p I&D left elbow and wrist - Patient appears to have responded to initial therapy of antibiotics and surgery well, elbow and wrist appear improved this morning. - No growth to date of cultures. ID consult pending. Continue broad-spectrum antibiotics per primary. - Pain control - Medicine following for medical management - PT/OT -range of motion as tolerated left upper extremity. Edema noted therapy left hand. - DVT PPX -Lovenox as ordered by hospitalist, SCDs and early mobilization (2) Septic arthritis of wrist, left: PLAN: See above
--- NOTE | 2025-04-18 07:25 | PCM.PN.HOSP ---
Reason for Visit Chief Complaint: Atraumatic left elbow pain and swelling Subjective Subjective Patient is a 79-year-old lady admitted with left elbow swelling consistent with septic arthritis went I&D Objective Data Objective Data Vital Signs: Vital Signs Temp Pulse Resp BP Pulse Ox O2 Del Method O2 Flow Rate 97.6 F L 90 16 149/62 H 92 Room Air 2 04/18/25 05:58 04/18/25 05:58 04/18/25 05:58 04/18/25 05:58 04/18/25 05:58 04/18/25 05:58 04/18/25 02:18 Oxygen Flow Rate (L/min) 2 Oxygen Delivery Method Room Air Weight: 137.529 kg Body Mass Index (BMI) 52.0 Intake & Output: Intake and Output for Last 24 Hours 04/16/25 04/17/25 04/18/25 23:59 23:59 23:59 Intake Total 540 / 640 250 / 250 Output Total 100 / 100 Balance 440 / 540 250 / 250 Lab / Micro Data 04/18/25 05:13 04/18/25 05:13 Labs: Laboratory Results - last 24 hr 04/17/25 14:50: WBC 16.8 H, RBC 4.15 L, Hgb 14.0, Hct 38.9, MCV 93.7, MCH 33.7 H, MCHC 36.0, RDW Std Deviation 43.8, RDW Coeff of Jeff 12.8, Plt Count 165, MPV 12.8 H, Immature Gran % (Auto) 0.500, Neut % (Auto) 66.7, Lymph % (Auto) 6.2 L, [place] % (Auto) 8.0, Eos % (Auto) 17.9 H, Baso % (Auto) 0.7, Absolute Neuts (auto) 11.2 H, Absolute Lymphs (auto) 1.04, Nucleated RBC % 0, Differential Comment SCANNED, ESR 51 H, Sodium 133, Potassium 3.9, Chloride 95 L, Carbon Dioxide 19.1 L, Anion Gap 19 H, BUN 11, Creatinine 0.98, Est GFR (MDRD) Non-Af 59 L, BUN/Creatinine Ratio 10.9, Glucose 225 H, Hemoglobin A1c 8.4 H, Uric Acid 7.8 H, Calcium 9.5, Total Bilirubin 0.91, Direct Bilirubin 0.23, AST 20, ALT 10, Alkaline Phosphatase 60, C-React Prot Ext Range 119.00 H, Total Protein 7.7, Albumin 4.1, Globulin 3.6 04/17/25 16:48: Fluid Source Cancelled, Fluid Color Cancelled, Fluid Appearance Cancelled, Fluid WBC Cancelled, Fluid RBC Cancelled, Fluid Tot Cell Count Cancelled, Fld Polynuclear WBCs # Cancelled, Fld Polynuclear WBCs % Cancelled, Fluid Mononuclear WBCs Cancelled, Fld Mononuclear WBCs % Cancelled, Fluid Neutrophils Cancelled, Fluid Lymphocytes Cancelled, Fluid Monocytes Cancelled, Fluid Plasma Cells Cancelled, Fluid Macrophages Cancelled, Fld Mesothelial Cells Cancelled, Fluid Other Cells Cancelled, Fl Pathologist Comment Cancelled, Fluid Comment 2 Cancelled, Synovial Source LEFT ELBOW, Synovial Color Red, Synovial Appearance Turbid, Synovial WBC 53.9600 H, Synovial RBC 0.104 H, Synovial Tot Cell Ct 54.0300 H, Synov Polynuclear WBCs 29.794, Synov Mononuclear WBCs 1.289, Synovial Neutrophils 88 H, Synovial Lymphocytes 1, Synovial Monocytes 11, Synovial Polynuclear % 95.9, Synovial Mononuclear % 4.1, Synovial Path Comment May follow 04/17/25 20:17: POC Glucose 217 H 04/17/25 23:35: POC Glucose 251 H 04/18/25 05:13: WBC 16.4 H, RBC 3.49 L, Hgb 11.7 L, Hct 33.0 L, MCV 94.6, MCH 33.5 H, MCHC 35.5, RDW Std Deviation 45.0 H, RDW Coeff of Jeff 13.1, Plt Count 142 L, MPV 9.1, Immature Gran % (Auto) 0.600, Neut % (Auto) 59.2, Lymph % (Auto) 10.0 L, [place] % (Auto) 9.0, Eos % (Auto) 20.7 H, Baso % (Auto) 0.5, Absolute Neuts (auto) 9.7 H, Absolute Lymphs (auto) 1.64, Nucleated RBC % 0, Differential Comment SCANNED, Sodium 136, Potassium 3.2 L, Chloride 100, Carbon Dioxide 21.8, Anion Gap 14, BUN 14, Creatinine 1.49 H, Estim Creat Clear Calc 43.84 L, Est GFR (MDRD) Non-Af 36 L, BUN/Creatinine Ratio 9.3 L, Glucose 170 H, Calcium 8.4 04/18/25 06:23: POC Glucose 185 H Radiography Diagnostic Testing: Radiology Impression Elbow X-Ray 04/17/25 14:33 IMPRESSION: No fracture or dislocation. Degenerative changes at the elbow joint. Reading Location: [place] [address] Physical Exam Narrative GENERAL: cooperative HEENT: Atraumatic; normocephalic EYES; Anicteric, Normal Conjunctiva NECK; supple, normal thyroid, RESPIRATORY: Diminished to auscultation CARDIOVASCULAR: Regular S1 S2, GI: soft, normoactive bowel sounds, : No Renal angle tenderness; EXTREMITIES: No edema, no clubbing, MUSCULOSKELETAL: Left elbow in surgical dressing NEURO: Awake; no lateralizing signs. SKIN: No Rash PSYCH; Flat affect Assessment & Plan Assessment/Plan (1) Nontraumatic pain and swelling of elbow: PLAN: Plan Patient is a 79-year-old female who presented [facility] ED on 04/17/2025 with atraumatic left elbow pain with swelling. 1. Septic arthritis involving the left elbow ? Patient was admitted to regular nursing floor. Started on broad-spectrum antibiotic therapy consult placed to orthopedic surgery seen by Dr. Vazquez who did perform irrigation and debridement of left elbow. Cultures send consult placed to ID 2. Eosinophilia ? 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 Class III obesity with BMI of 52 -complicating care; Weight loss advised 4. Hypothyroidism ? Patient is on levothyroxine home dose continued 5. Diabetes mellitus type II -patient's oral hypoglycemics held. Placed on long acting insulin, Accu-Cheks a.c. and at bedtime and covered with sliding scale insulin 6. Dyslipidemia ? Patient is on fenofibrate 7. Psoriasis ? Patient is on secukinumab q. monthly 8. Allergic rhinitis ? Patient is on montelukast and cetirizine 9. P overactive bladder ? Patient is on mirabegron and oxybutynin 10. Hypertension ? Blood pressure controlled, home medications continued with dose adjustment as needed 11. Depression with anxiety ? Patient is on escitalopram 12. DVT prophylaxis ? Lovenox subcu Charges/Coding Visit Charges Inpatient E&M: 32622 Subs Hosp L2
--- NOTE | 2025-04-18 10:22 | CASEMGMT ---
RN KAUSHAL Assessment Face to Face with patient for initial transition planning/care coordination assessment. RN CM introduced self and role at [facility], pt voices understanding. Care providers, pharmacy, and demographics verified. Admitting dx: Left Elbow Septic Arthritis LACE Strata: 2 PCP: Laura Ly Specialists: Jonatan (GI-[place]), Claudia (Pulmonary -[place]), Cassia Lacy (Dermatology - [place]) Preferred Pharmacy: [facility] Insurance: [facility] [facility] Prescription Benefit: Yes LNOK: Daughter - Analy Cruz. Living Arrangements: Pt lives alone in a [place] and enters through the basement with a stair lift to get to the main level. Pt states the entire home is handicap accessible. 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 Pt reports that her daughter is a PT. ADLs/IADLs: Pt states that she was indep prior to arrival. Current 6-Click score is 17 and PT is ordered and pending Transportation: Drives, pt daughter drives DME: Pt has a stair lift chair, rollator, FWW, cane, walk-in shower with shower chair and grab bars, raised toilet seat with grab bars, and medical alert button. Pt has a BiPAP @ home with no additional oxygen. Pt is currently requiring additional oxygen and may qualify for home oxygen use. A verbal list of local in-network DME companies were provided to the pt at this time. Pt prefers [facility].?Noted that the pt has a hx of DM. This RN CM inquired if the pt has supplies to check her BS levels at home. Pt denies. Inquired if the pt is interested in an rx for a BGM and supplies. Pt firmly declines. This RN CM educated the pt on the importance of caring for her DM. Pt states understanding but still denies the rx. HHC/SNF: Denies personal hx. Pt states that her had a hx of HH and home IV ATB needs. Pt is unsure of the agencies he went through. Pts Goal: Home Plan: TBD. Anticipate eventual DC home once medically ready, follow for IV ATB needs. Per chart review, pt had an I&D with Dr Vazquez completed on 04/17. ID is consulted and cultures are pending. Possible PICC needs. This RN CM educated the pt on the potential for home IV ATBs. Pt states that she would prefer to have HH set up and that she could be the teachable caregiver as she helped her with these in the past. CM to provide HH list if warranted. Pt also declines wanting to review a list of Home Infusion companies and states that she would prefer to go through [facility]. CM to follow for possible OP infusion center needs. Pt states understanding and denies further questions or concerns now. Report given to CAITIE AUGUST CM. Ethan Brewster RN CM
--- NOTE | 2025-04-18 11:38 | PCM.RX.CS ---
Consult Antibiotic Management Pharmacy has been consulted to manage selected antibiotic: Vancomycin Type of Intervention Type of Consult: Follow-up Labs Labs: Sodium 136 mmol/L (133-145) 04/18/25 05:13 Potassium 3.2 mmol/L (3.3-5.1) L 04/18/25 05:13 Chloride 100 mmol/L (98-108) 04/18/25 05:13 Carbon Dioxide 21.8 mmol/L (21.0-32.0) 04/18/25 05:13 Anion Gap 14 (5-15) 04/18/25 05:13 BUN 14 mg/dL (4-19) 04/18/25 05:13 Creatinine 1.49 mg/dL (0.70-1.20) H 04/18/25 05:13 Est GFR (MDRD) Non-Af 36 (>60) L 04/18/25 05:13 BUN/Creatinine Ratio 9.3 RATIO (10-20) L 04/18/25 05:13 Glucose 170 mg/dL (70-99) H 04/18/25 05:13 Goal Trough Goal Trough: 15-20 mcg/mL Pharmacy Plan for Drug Dosing Pharmacy Plan for Drug Dosing: DAILY ASSESSMENT Current Vancomycin Dose: 1500 MG Q12H Number of Doses Received: 2 (ER LOAD + 1 DOSE) Current Renal Function: SCR: 1.49, CRCL: 43.8 Renal Function Trend: DECREASING Lab/Micro: BLOOD CULTURE: PENDING, WOUND CULTURE: PENDING Any Change in Vanc Plan: DECREASE DOSE TO 1000 MG Q12H Pending Level: 04/19/25 @ 0600 Pharmacy Service will continue to monitor and adjust dosing as required.
[2025-04-18] MEDS: Cholecalciferol (VIT D3) 25 MCG TABLET (1,000 UNITS) 50 MCG PO (12:15)
--- NOTE | 2025-04-18 13:32 | PCM.CONS.GEN ---
Assessment & Plan Assessment/Plan (1) Septic arthritis of wrist, left: (2) Septic arthritis of elbow, left: PLAN: Surg cx pending. Taken to OR 04/17/[address] Vazquez for I&D. Will narrow abx to vanc/ceftriaxone. Will follow, thank you HPI Consult Data Date of Consult: 04/18/25 HPI Narrative Reason for Consultation: septic arthritis HPI Narrative: STEPHANIE HERNANDEZ, is a 79 F who presented 04/17 with one day h/o acute onset L elbow and wrist pain, redness, swelling. No fever or chills, no known inciting event. No h/o gout. Pain was moderate, stabbing. Came to ED, aspiration done, admitted on vanc/zosyn, taken to OR by Dr. Vazquez for washout. Feeling better today. Full ROS performed and neg except as noted above. [facility] Medical History Hypothyroidism Anxiety and depression Allergic rhinitis CKD (chronic kidney disease) Morbid obesity Hyperlipidemia Hypertension Type 2 diabetes mellitus Home Medications ?Medication ?Instructions ?Recorded ?Last Taken ?Type aspirin 81 mg tablet,delayed 81 mg PO DAILY Blood thinner 10/15/23 04/16/25 History release (Adult Aspirin Regimen) carvedilol 25 mg tablet 25 mg PO Q12H Blood pres 10/15/23 04/16/25 History cetirizine 10 mg tablet 10 mg PO DAILY Allergies 10/15/23 04/16/25 History cholestyramine-aspartame 4 gram 1 ea PO DAILY cholesterol 10/15/23 04/16/25 History oral powder for susp in a packet (Cholestyramine Light) escitalopram oxalate 20 mg tablet 20 mg PO DAILY Anxiety 10/15/23 04/16/25 History levothyroxine 50 mcg tablet 50 mcg PO DAILY thyroid 10/15/23 04/16/25 History niacin 1,000 mg tablet,extended 1,000 mg PO DAILY cholesterol 10/15/23 04/16/25 History release 24 hr albuterol sulfate 2.5 mg/3 mL 2.5 mg inhalation Q4H PRN 04/17/25 04/16/25 History (0.083 %) solution for nebulization shortness of breath or wheezing cholecalciferol (vitamin D3) 25 50 mcg PO DAILY supplement 04/17/25 04/16/25 History mcg (1,000 unit) capsule (Vitamin D3) coenzyme Q10 10 mg capsule (Co 10 mg PO DAILY cholesterol 04/17/25 04/16/25 History Q-10) jessie (Zingiber officinalis) 500 500 mg PO DAILY PRN indigestion 04/17/25 04/16/25 History mg capsule meclizine 12.5 mg tablet 12.5 mg PO TID PRN dizziness 04/17/25 Unknown History psyllium husk 0.4 gram capsule 0.4 g PO DAILY PRN fiber 04/17/25 04/16/25 History (Daily Fiber) secukinumab 150 mg/mL subcutaneous 150 mg subcut .every 4 weeks 04/17/25 03/26/25 History syringe (Cosentyx) psoriasis Allergy/AdvReac Type Severity Reaction Status Date / Time No Known Allergies Allergy Verified 01/12/24 19:36 Family History Mother Cancer Diabetes Father Heart disease Surgical History S/P laparoscopic cholecystectomy S/P left knee arthroscopy Social History household members: none Smoking Status: Former smoker how long ago did patient quit smoking: Smoked age 22-until 30 years old, 1 ppd until quit. alcohol intake: never substance use type: does not use Physical Exam Const alert, oriented x3 and no apparent distress General Appearance: cooperative HEENT normocephalic and head/scalp atraumatic Eyes PERRL and EOMs intact bilaterally Neck supple and No nodes Resp normal air movement and clear to auscultation bilaterally Cardio regular rate and regular rhythm GI soft to palpation, non-tender and non-distended Extremity General Extremity: edema Skin Skin Narrative: LUE wrapped Neuro CN's II-XII intact bilaterally Lab / Micro Data Attestation: I reviewed the patient's lab results. 04/18/25 05:13 04/18/25 05:13 Labs: Laboratory Results - last 24 hr 04/17/25 14:50: WBC 16.8 H, RBC 4.15 L, Hgb 14.0, Hct 38.9, MCV 93.7, MCH 33.7 H, MCHC 36.0, RDW Std Deviation 43.8, RDW Coeff of Jeff 12.8, Plt Count 165, MPV 12.8 H, Immature Gran % (Auto) 0.500, Neut % (Auto) 66.7, Lymph % (Auto) 6.2 L, Bryan % (Auto) 8.0, Eos % (Auto) 17.9 H, Baso % (Auto) 0.7, Absolute Neuts (auto) 11.2 H, Absolute Lymphs (auto) 1.04, Nucleated RBC % 0, Differential Comment SCANNED, ESR 51 H, Sodium 133, Potassium 3.9, Chloride 95 L, Carbon Dioxide 19.1 L, Anion Gap 19 H, BUN 11, Creatinine 0.98, Est GFR (MDRD) Non-Af 59 L, BUN/Creatinine Ratio 10.9, Glucose 225 H, Hemoglobin A1c 8.4 H, Uric Acid 7.8 H, Calcium 9.5, Total Bilirubin 0.91, Direct Bilirubin 0.23, AST 20, ALT 10, Alkaline Phosphatase 60, C-React Prot Ext Range 119.00 H, Total Protein 7.7, Albumin 4.1, Globulin 3.6 04/17/25 16:48: Fluid Source Cancelled, Fluid Color Cancelled, Fluid Appearance Cancelled, Fluid WBC Cancelled, Fluid RBC Cancelled, Fluid Tot Cell Count Cancelled, Fld Polynuclear WBCs # Cancelled, Fld Polynuclear WBCs % Cancelled, Fluid Mononuclear WBCs Cancelled, Fld Mononuclear WBCs % Cancelled, Fluid Neutrophils Cancelled, Fluid Lymphocytes Cancelled, Fluid Monocytes Cancelled, Fluid Plasma Cells Cancelled, Fluid Macrophages Cancelled, Fld Mesothelial Cells Cancelled, Fluid Other Cells Cancelled, Fl Pathologist Comment Cancelled, Fluid Comment 2 Cancelled, Synovial Source LEFT ELBOW, Synovial Color Red, Synovial Appearance Turbid, Synovial WBC 53.9600 H, Synovial RBC 0.104 H, Synovial Tot Cell Ct 54.0300 H, Synov Polynuclear WBCs 29.794, Synov Mononuclear WBCs 1.289, Synovial Neutrophils 88 H, Synovial Lymphocytes 1, Synovial Monocytes 11, Synovial Polynuclear % 95.9, Synovial Mononuclear % 4.1, Synovial Path Comment May follow 04/17/25 20:17: POC Glucose 217 H 04/17/25 23:35: POC Glucose 251 H 04/18/25 05:13: WBC 16.4 H, RBC 3.49 L, Hgb 11.7 L, Hct 33.0 L, MCV 94.6, MCH 33.5 H, MCHC 35.5, RDW Std Deviation 45.0 H, RDW Coeff of Jeff 13.1, Plt Count 142 L, MPV 9.1, Immature Gran % (Auto) 0.600, Neut % (Auto) 59.2, Lymph % (Auto) 10.0 L, Bryan % (Auto) 9.0, Eos % (Auto) 20.7 H, Baso % (Auto) 0.5, Absolute Neuts (auto) 9.7 H, Absolute Lymphs (auto) 1.64, Nucleated RBC % 0, Differential Comment SCANNED, Sodium 136, Potassium 3.2 L, Chloride 100, Carbon Dioxide 21.8, Anion Gap 14, BUN 14, Creatinine 1.49 H, Estim Creat Clear Calc 43.84 L, Est GFR (MDRD) Non-Af 36 L, BUN/Creatinine Ratio 9.3 L, Glucose 170 H, Calcium 8.4 04/18/25 06:23: POC Glucose 185 H 04/18/25 11:10: POC Glucose 212 H Imaging Radiology Impression Elbow X-Ray 04/17/25 14:33 IMPRESSION: No fracture or dislocation. Degenerative changes at the elbow joint. Reading Location: [place] [address]
[2025-04-18] MEDS: Ceftriaxone 2 GM in 0.9% Normal Saline (50mL MB+) 50 ML IV (13:40)
--- NOTE | 2025-04-18 15:24 | CASEMGMT ---
Discharge Planning A list of?HH providers including quality and resource use data and consistent with the patient's preferred geographic region, medical needs, and insurance network was created in [employer] Guide.? This list was provided to the RN KAUSHAL. Barby Seo, Discharge Planning Asst.
[2025-04-18 16:54] LABS: CRYSTALS, BODY FLUID NO CRYSTALS SEEN; Source- Body Fluid SYNOVIAL
[2025-04-18 16:56] LABS: Body Fluid QC Type(s) 0717 BF3Q
[2025-04-18] MEDS: Vancomycin HCl 1,000 MG in 0.9% Normal Saline (250mL Bag) 250 ML 250 MG IV (18:14)
[2025-04-18] MEDS: 0.9% Saline Lock 10 ML Syringe IV (18:14)
[2025-04-19 03:05] VITALS: BP 142/65; PULSE 98; RESP 18; TEMP 37.6; O2SAT 95
[2025-04-19 05:58] VITALS: TEMP 37
[2025-04-19 06:08] LABS: Hematocrit 32.5 % (37-47); Hemoglobin 11.5 g/dL (12.0-15.0); Immature Granulocytes Count 0.060 X10^3/uL (0.0-0.0); Mean Corp Hgb Conc 35.4 g/dL (32-36); Mean Corpuscular Volume 95.3 fL (81-99); Mean Platelet Vol. 8.9 fl (6.2-12.0); NRBC Flagged by Analyzer 0 % (0-5); POSITIVE DIFFERENTIAL YES; Platelet Count 156 K/mm3 (150-450); RBC Distribution Width CV 12.7 % (11.6-14.6); RBC Distribution Width SD 44.3 fl (35.1-43.9); Red Blood Count 3.41 M/mm3 (4.2-5.4); White Blood Count 13.8 K/mm3 (4.4-11.0)
[2025-04-19 06:35] LABS: Differential Indicated SCAN CRITERIA MET
[2025-04-19] MEDS: 0.9% Normal Saline (250mL Bag) 250 ML 15 ML IV (06:47)
[2025-04-19] MEDS: Vancomycin HCl 1,000 MG in 0.9% Normal Saline (250mL Bag) 250 ML 250 MG IV (06:47)
[2025-04-19 06:49] LABS: Vancomycin, Trough Level 18.4 ug/mL (5.0-15.0)
[2025-04-19 06:50] LABS: Anion Gap 15 (5-15); BUN 18 mg/dL (4-19); BUN/Creat Ratio 10.2 RATIO (10-20); Calcium,Total 8.6 mg/dL (7.6-11.0); Carbon Dioxide 20.1 mmol/L (21.0-32.0); Chloride 100 mmol/L (98-108); Estimated Creatinine Clearance 37.12 ml/min (50-250); Glucose 189 mg/dL (70-99); Magnesium 1.3 mg/dL (1.5-2.2); Potassium 3.1 mmol/L (3.3-5.1)
--- NOTE | 2025-04-19 07:12 | PCM.RX.CS ---
Consult Antibiotic Management Pharmacy has been consulted to manage selected antibiotic: Vancomycin Type of Intervention Type of Consult: Follow-up Labs Labs: Sodium 136 mmol/L (133-145) 04/19/25 05:54 Potassium 3.1 mmol/L (3.3-5.1) L 04/19/25 05:54 Chloride 100 mmol/L (98-108) 04/19/25 05:54 Carbon Dioxide 20.1 mmol/L (21.0-32.0) L 04/19/25 05:54 Anion Gap 15 (5-15) 04/19/25 05:54 BUN 18 mg/dL (4-19) 04/19/25 05:54 Creatinine 1.76 mg/dL (0.70-1.20) H 04/19/25 05:54 Est GFR (MDRD) Non-Af 29 (>60) L 04/19/25 05:54 BUN/Creatinine Ratio 10.2 RATIO (10-20) 04/19/25 05:54 Glucose 189 mg/dL (70-99) H 04/19/25 05:54 Vancomycin Trough 18.4 ug/mL (5.0-15.0) H 04/19/25 05:54 Microbiology Microbiology: Microbiology 04/17/25 19:03 Incision/Surgical Site Gram Stain - Final 04/17/25 16:48 Fluid - Synovial (joint) Gram Stain - Final 04/17/25 19:55 Incision/Surgical Site Gram Stain - Final Goal Trough Goal Trough: 15-20 mcg/mL Pharmacy Plan for Drug Dosing Pharmacy Plan for Drug Dosing: VANCOMYCIN LEVEL RECEIVED Current Vancomycin Dose: 1000MG IV Q12hr Number of Doses Received: 1 (of current regimen) - was on 1500 q12hr, dose reduced yesterday d/t worsening renal function. Vancomycin Level: 18.4 Hours Since Last Dose: 11.25hr Renal Function: SCr 1.76 / CrCl 37 mL/min Renal Function Trend: SCr increased once again this AM Lab/Micro: Cultures pending Vancomycin Plan/Comments: Patient had a trough drawn this morning which resulted in a value of 18.4 (Goal 15-20). Will continue current dosing and recheck a trough in 48hrs per protocol. Will continue to monitor renal function and if it continues to worsen tomorrow, would consider getting a trough earlier than 48hrs from now. Pending Level: 04/21/25 @0600 Pharmacy Service will continue to monitor and adjust dosing as required.
--- NOTE | 2025-04-19 07:32 | PCM.PN.HOSP ---
Reason for Visit Chief Complaint: Atraumatic left elbow pain and swelling Subjective Subjective Patient cultures still pending. Has significant electrolyte abnormalities including hypokalemia as well as hypomagnesemia. Patient's kidney function has worsened following admission Objective Data Objective Data Vital Signs: Vital Signs Temp Pulse Resp BP Pulse Ox O2 Del Method O2 Flow Rate 98.6 F 98 18 142/65 H 95 Nasal Cannula 2 04/19/25 05:58 04/19/25 03:05 04/19/25 03:05 04/19/25 03:05 04/19/25 03:05 04/19/25 07:09 04/19/25 07:09 Oxygen Flow Rate (L/min) 2 Oxygen Delivery Method Nasal Cannula Weight: 137.529 kg Body Mass Index (BMI) 52.0 Intake & Output: Intake and Output for Last 24 Hours 04/17/25 04/18/25 04/19/25 23:59 23:59 23:59 Intake Total 540 / 640 2150 / 2150 300 / 300 Output Total 100 / 100 Balance 440 / 540 2150 / 2150 300 / 300 Lab / Micro Data 04/19/25 05:54 04/19/25 05:54 Labs: Laboratory Results - last 24 hr 04/17/25 16:48: Synovial Path Comment Reviewed 04/18/25 11:10: POC Glucose 212 H 04/18/25 15:08: Fluid Crystals NO CRYSTALS SEEN, Fluid Crystal Source SYNOVIAL, Fl Crystal Path Review Reviewed 04/18/25 16:39: POC Glucose 189 H 04/18/25 20:52: POC Glucose 216 H 04/19/25 05:54: WBC 13.8 H, RBC 3.41 L, Hgb 11.5 L, Hct 32.5 L, MCV 95.3, MCH 33.7 H, MCHC 35.4, RDW Std Deviation 44.3 H, RDW Coeff of Jeff 12.7, Plt Count 156, MPV 8.9, Immature Gran % (Auto) 0.400, Neut % (Auto) 56.9, Lymph % (Auto) 12.2 L, King % (Auto) 7.7, Eos % (Auto) 22.2 H, Baso % (Auto) 0.6, Absolute Neuts (auto) 7.9 H, Absolute Lymphs (auto) 1.69, Nucleated RBC % 0, Differential Comment COMMENT, Sodium 136, Potassium 3.1 L, Chloride 100, Carbon Dioxide 20.1 L, Anion Gap 15, BUN 18, Creatinine 1.76 H, Estim Creat Clear Calc 37.12 L, Est GFR (MDRD) Non-Af 29 L, BUN/Creatinine Ratio 10.2, Glucose 189 H, Calcium 8.6, Phosphorus 2.8, Magnesium 1.3 L, Vancomycin Trough 18.4 H 04/19/25 06:38: POC Glucose 192 H Micro: Microbiology 04/17/25 19:03 Incision/Surgical Site Gram Stain - Final 04/17/25 16:48 Fluid - Synovial (joint) Gram Stain - Final 04/17/25 19:55 Incision/Surgical Site Gram Stain - Final Radiography Diagnostic Testing: Radiology Impression Elbow X-Ray 04/17/25 14:33 IMPRESSION: No fracture or dislocation. Degenerative changes at the elbow joint. Reading Location: [place] [address] Physical Exam Narrative GENERAL: cooperative HEENT: Atraumatic; normocephalic EYES; Anicteric, Normal Conjunctiva NECK; supple, normal thyroid, RESPIRATORY: Diminished to auscultation CARDIOVASCULAR: Regular S1 S2, GI: soft, normoactive bowel sounds, : No Renal angle tenderness; EXTREMITIES: No edema, no clubbing, MUSCULOSKELETAL: Left elbow in surgical dressing NEURO: Awake; no lateralizing signs. SKIN: No Rash PSYCH; Flat affect Assessment & Plan Assessment/Plan (1) Nontraumatic pain and swelling of elbow: PLAN: Plan Patient is a 79-year-old female who presented [facility] ED on 04/17/2025 with atraumatic left elbow pain with swelling. 1. Septic arthritis involving the left elbow ? Patient was admitted to regular nursing floor. Started on broad-spectrum antibiotic therapy consult placed to orthopedic surgery seen by Dr. Vazquez who did perform irrigation and debridement of left elbow. Cultures send consult placed to ID 2. Eosinophilia ? 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 Class III obesity with BMI of 52 -complicating care; Weight loss advised 4. Hypothyroidism ? Patient is on levothyroxine home dose continued 5. Diabetes mellitus type II -patient's oral hypoglycemics held. Placed on long acting insulin, Accu-Cheks a.c. and at bedtime and covered with sliding scale insulin 6. Dyslipidemia ? Patient is on fenofibrate 7. Psoriasis ? Patient is on secukinumab q. monthly 8. Allergic rhinitis ? Patient is on montelukast and cetirizine 9. Overactive bladder ? Patient is on mirabegron and oxybutynin 10. Hypertension ? Blood pressure controlled, home medications continued with dose adjustment as needed 11. Depression with anxiety ? Patient is on escitalopram 12. Hypokalemia ? Corrected per protocol repeat labs ordered in a.m. for subsequent eval 13. Hypomagnesemia ? Corrected per protocol repeat labs ordered in a.m. for subsequent management 14. Acute kidney injury ? Patient creatinine on admission was 0.98 creatinine as of this a.m. is 1.76 patient started on IV hydration avoiding the use of nephrotoxic medications 15. DVT prophylaxis ? Lovenox subcu Time spent in the patient's overall evaluation,decision-making process, review of diagnostic data, adjustment of management, discussion with other providers, nursing nursing and ancillary staff involved in patient's care documentation, 50 Minutes Charges/Coding Visit Charges Inpatient E&M: 47239 Subs Hosp L3
[2025-04-19] MEDS: Potassium Chloride Oral Tablet 20 MEQ 40 MEQ PO (08:41)
[2025-04-19] MEDS: Aspirin E.C. 81 MG Tablet PO (08:42)
[2025-04-19] MEDS: 0.9% Normal Saline (1000mL) 1,000 ML 150 ML IV ×2 (08:42→21:40)
--- NOTE | 2025-04-19 09:32 | PN.ORTHO_ITS ---
Subjective Subjective Patient reports mild symptoms of nausea vomiting, chest pain shortness of breath. Left elbow and wrist movement better. Objective Data Objective Data Vital Signs: Vital Signs Temp Pulse Resp BP Pulse Ox O2 Del Method O2 Flow Rate 98.6 F 98 18 142/65 H 95 Nasal Cannula 2 04/19/25 05:58 04/19/25 03:05 04/19/25 03:05 04/19/25 03:05 04/19/25 03:05 04/19/25 07:09 04/19/25 07:09 Oxygen Flow Rate (L/min) 2 Oxygen Delivery Method Nasal Cannula Weight: 303 lb 3.192 oz Body Mass Index (BMI) 52.0 Intake & Output: Intake and Output for Last 24 Hours 04/17/25 04/18/25 04/19/25 23:59 23:59 23:59 Intake Total 540 / 640 2150 / 2150 300 / 300 Output Total 100 / 100 Balance 440 / 540 2150 / 2150 300 / 300 Lab / Micro Data 04/19/25 05:54 04/19/25 05:54 Labs: Laboratory Results - last 24 hr 04/17/25 16:48: Synovial Path Comment Reviewed 04/18/25 11:10: POC Glucose 212 H 04/18/25 15:08: Fluid Crystals NO CRYSTALS SEEN, Fluid Crystal Source SYNOVIAL, Fl Crystal Path Review Reviewed 04/18/25 16:39: POC Glucose 189 H 04/18/25 20:52: POC Glucose 216 H 04/19/25 05:54: WBC 13.8 H, RBC 3.41 L, Hgb 11.5 L, Hct 32.5 L, MCV 95.3, MCH 33.7 H, MCHC 35.4, RDW Std Deviation 44.3 H, RDW Coeff of Jeff 12.7, Plt Count 156, MPV 8.9, Immature Gran % (Auto) 0.400, Neut % (Auto) 56.9, Lymph % (Auto) 12.2 L, [place] % (Auto) 7.7, Eos % (Auto) 22.2 H, Baso % (Auto) 0.6, Absolute Neuts (auto) 7.9 H, Absolute Lymphs (auto) 1.69, Nucleated RBC % 0, Differential Comment COMMENT, Sodium 136, Potassium 3.1 L, Chloride 100, Carbon Dioxide 20.1 L, Anion Gap 15, BUN 18, Creatinine 1.76 H, Estim Creat Clear Calc 37.12 L, Est GFR (MDRD) Non-Af 29 L, BUN/Creatinine Ratio 10.2, Glucose 189 H, Calcium 8.6, Phosphorus 2.8, Magnesium 1.3 L, Vancomycin Trough 18.4 H 04/19/25 06:38: POC Glucose 192 H Micro: Microbiology 04/17/25 19:03 Incision/Surgical Site Gram Stain - Final 04/17/25 16:48 Fluid - Synovial (joint) Gram Stain - Final 04/17/25 19:55 Incision/Surgical Site Gram Stain - Final Radiography Diagnostic Testing: Radiology Impression Elbow X-Ray 04/17/25 14:33 IMPRESSION: No fracture or dislocation. Degenerative changes at the elbow joint. [facility] Physical Exam Narrative General - A&Ox3, NAD. Vital signs are stable with Tmax of 100.6 Fahrenheit overnight Upper Extremity - SILT & 5/5 in radial, ulnar, musculocutaneous, axillary, and median nerve distributions. Radial, ulnar pulses 2+. Compartments soft and compressible. BCR in finger tips. Incisional dressing C/D/I. Dressing removed. Minimal swelling. Erythematous rash on the dorsal left hand and wrist is faint. Cardinal motions of the left hand are intact. Tolerating active and passive range of motion left elbow and wrist. Endrange pain is noted. Assessment & Plan Assessment/Plan (1) Septic arthritis of wrist, left: PLAN: See above (2) Septic arthritis of elbow, left: PLAN: POD# 2 s/p I&D left elbow and wrist - Patient stable. - No growth to date of cultures. ID consult pending. Continue broad-spectrum antibiotics per primary. - Pain control - Medicine following for medical management - PT/OT -range of motion as tolerated left upper extremity. Edema noted therapy left hand. - DVT PPX -Lovenox as ordered by hospitalist, SCDs and early mobilization I will sign off at this time. Please do not hesitate to call if any questions or concerns arise. Follow-up with orthopedics 2 weeks postoperatively. Continue range of motion of left wrist elbow and hand. Antibiotics per ID. Okay to shower postoperative day #4 if no drainage. Continue compression left upper extremity to reduce edema.
[2025-04-19] MEDS: Cholecalciferol (VIT D3) 25 MCG TABLET (1,000 UNITS) 50 MCG PO (11:18)
[2025-04-19] MEDS: Niacin SA 500 MG Tablet 1000 MG PO (11:20)
[2025-04-19] MEDS: Psyllium 1 PACKET 0.4 PACKET PO (11:21)
[2025-04-19] MEDS: Magnesium Chloride 64 MG Delay Rel.Tablet 128 MG PO ×2 (11:24→21:40)
--- NOTE | 2025-04-19 11:51 | CASEMGMT ---
Addendum entered by Edda Schultz 04/19/25 15:23: Spoke with ID who plans for po meds at dc. MATA EASLEY into pt room, pt states she feels safe to return home if no IV atb. Pt called her dtr and she agreed as well. Original Note: Pt dtr spoke with MATA EASLEY stating that she feels pt wants to go to [facility]. MATA EASLEY into pt room, pt sitting up in chair. Pt states should she need IV atb post dc, she is interested in TCU. States she denies a need for a list of other options unless TCU cannot accept her. She states that if she does not need IV atb then she prefers to go home. MATA EASLEY to speak with ID this date as cx are not back at this time.
[2025-04-19] MEDS: Ceftriaxone 2 GM in 0.9% Normal Saline (50mL MB+) 50 ML IV (15:36)
--- NOTE | 2025-04-19 15:48 | PN.ID_ITS ---
Physical Exam Narrative Feeling better, no fever, arm less sore Const alert and no apparent distress General Appearance: cooperative Resp normal air movement and clear to auscultation bilaterally Cardio regular rate and regular rhythm GI soft to palpation, non-tender and non-distended Extremity General Extremity: edema Skin Skin Narrative: LUE wrapped ID ID: Route of nutrition/ use of supplements: [] Nutritional Intake: [] IV Site: [] Adam Catheter: [] Assessment & Plan Assessment/Plan (1) Septic arthritis of wrist, left: (2) Septic arthritis of elbow, left: PLAN: Surg cx ngtd. Taken to OR 04/17/[address] Vazquez for I&D. On vanc/ceftriaxone. Path review of fluid shows non-urate crystals. May not be infectious in origin. Will plan on one week po doxy 100mg bid while final cxs pending. Pt with new DAYLIN, will need bmp repeat. Ok for picc removal. 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
[2025-04-19] MEDS: Magnesium Sulfate 2 GM in Dextrose 5%-Water (100mL Bag) 100 ML IV (16:28)
[2025-04-19 16:32] VITALS: BP 125/68; PULSE 86; RESP 16; TEMP 36.6; O2SAT 96
[2025-04-19] MEDS: Potassium Chloride Oral Tablet 20 MEQ PO (16:53)
[2025-04-19 20:06] VITALS: BP 157/62; PULSE 91; RESP 16; TEMP 37.3; O2SAT 92
[2025-04-20 03:20] VITALS: BP 210/111; PULSE 76; RESP 17; TEMP 36.7; O2SAT 93
[2025-04-20 04:01] VITALS: BP 210/111; PULSE 76
[2025-04-20] MEDS: 0.9% Normal Saline (1000mL) 1,000 ML 150 ML IV ×3 (04:08→17:57)
[2025-04-20 05:49] LABS: Hematocrit 31.1 % (37-47); Hemoglobin 11.1 g/dL (12.0-15.0); Immature Granulocytes Count 0.080 X10^3/uL (0.0-0.0); Mean Corp Hgb Conc 35.7 g/dL (32-36); Mean Corpuscular Volume 95.1 fL (81-99); Mean Platelet Vol. 9.1 fl (6.2-12.0); NRBC Flagged by Analyzer 0 % (0-5); POSITIVE DIFFERENTIAL YES; Platelet Count 169 K/mm3 (150-450); RBC Distribution Width CV 12.8 % (11.6-14.6); RBC Distribution Width SD 44.4 fl (35.1-43.9); Red Blood Count 3.27 M/mm3 (4.2-5.4); White Blood Count 13.6 K/mm3 (4.4-11.0)
[2025-04-20 06:09] LABS: Differential Indicated SCAN CRITERIA MET
[2025-04-20 06:12] LABS: Anion Gap 15 (5-15); BUN 18 mg/dL (4-19); BUN/Creat Ratio 11.0 RATIO (10-20); Calcium,Total 9.1 mg/dL (7.6-11.0); Carbon Dioxide 18.5 mmol/L (21.0-32.0); Chloride 102 mmol/L (98-108); Estimated Creatinine Clearance 39.59 ml/min (50-250); Glucose 164 mg/dL (70-99); Potassium 3.4 mmol/L (3.3-5.1)
[2025-04-20 06:27] VITALS: BP 199/77; PULSE 77
--- NOTE | 2025-04-20 07:51 | PN.HOSP_ITS ---
Reason for Visit Chief Complaint: Atraumatic left elbow pain and swelling Subjective Subjective Patient was noted to have markedly elevated blood pressure; however these blood pressures were taking from the leg blood pressures taken from the clinic within normal limits. Patient also reports several loose stools. Patient was kept in isolation order stool studies including C. difficile Objective Data Objective Data Vital Signs: Vital Signs Temp Pulse Resp BP Pulse Ox O2 Del Method O2 Flow Rate 98.1 F 77 17 199/77 H 93 Room Air 2 04/20/25 03:20 04/20/25 06:27 04/20/25 03:20 04/20/25 06:27 04/20/25 03:20 04/20/25 03:20 04/19/25 16:32 Oxygen Flow Rate (L/min) 2 Oxygen Delivery Method Room Air Weight: 137.529 kg Body Mass Index (BMI) 52.0 Intake & Output: Intake and Output for Last 24 Hours 04/18/25 04/19/25 04/20/25 23:59 23:59 23:59 Intake Total 2150 / 2150 2114.75 / 2114.75 1470 / 1470 Balance 2150 / 2150 2114.75 / 2114.75 1470 / 1470 Lab / Micro Data 04/20/25 05:30 04/20/25 05:30 Labs: Laboratory Results - last 24 hr 04/19/25 11:37: POC Glucose 220 H 04/19/25 16:35: POC Glucose 184 H 04/19/25 21:47: POC Glucose 179 H 04/20/25 05:30: WBC 13.6 H, RBC 3.27 L, Hgb 11.1 L, Hct 31.1 L, MCV 95.1, MCH 33.9 H, MCHC 35.7, RDW Std Deviation 44.4 H, RDW Coeff of Jeff 12.8, Plt Count 169, MPV 9.1, Immature Gran % (Auto) 0.600, Neut % (Auto) 54.7, Lymph % (Auto) 11.2 L, [place] % (Auto) 7.2, Eos % (Auto) 25.7 H, Baso % (Auto) 0.6, Absolute Neuts (auto) 7.5, Absolute Lymphs (auto) 1.53, Nucleated RBC % 0, Platelet Estimate A, Sodium 136, Potassium 3.4, Chloride 102, Carbon Dioxide 18.5 L, Anion Gap 15, BUN 18, Creatinine 1.65 H, Estim Creat Clear Calc 39.59 L, Est GFR (MDRD) Non-Af 32 L, BUN/Creatinine Ratio 11.0, Glucose 164 H, Calcium 9.1 04/20/25 06:10: POC Glucose 164 H Micro: Microbiology 04/17/25 19:55 Incision/Surgical Site Gram Stain - Final 04/17/25 19:55 Incision/Surgical Site Wound Culture - Preliminary No growth-Final to follow 04/17/25 19:55 Incision/Surgical Site Anaerobic Culture - Preliminary No growth in 48 hours. 04/17/25 19:03 Incision/Surgical Site Gram Stain - Final 04/17/25 19:03 Incision/Surgical Site Wound Culture - Preliminary No growth-Final to follow 04/17/25 19:03 Incision/Surgical Site Anaerobic Culture - Preliminary No growth in 48 hours. 04/17/25 16:48 Fluid - Synovial (joint) Gram Stain - Final 04/17/25 16:48 Fluid - Synovial (joint) Body Fluid Culture - Preliminary No growth-Final to follow 04/17/25 16:48 Fluid - Synovial (joint) Anaerobic Culture - Preliminary No growth in 48 hours. Physical Exam Narrative GENERAL: cooperative HEENT: Atraumatic; normocephalic EYES; Anicteric, Normal Conjunctiva NECK; supple, normal thyroid, RESPIRATORY: Diminished to auscultation CARDIOVASCULAR: Regular S1 S2, GI: soft, normoactive bowel sounds, : No Renal angle tenderness; EXTREMITIES: No edema, no clubbing, MUSCULOSKELETAL: Left elbow in surgical dressing NEURO: Awake; no lateralizing signs. SKIN: No Rash PSYCH; Flat affect Assessment & Plan Assessment/Plan (1) Nontraumatic pain and swelling of elbow: PLAN: Plan Patient is a 79-year-old female who presented [facility] ED on 04/17/2025 with atraumatic left elbow pain with swelling. 1. Septic arthritis involving the left elbow ? Patient was admitted to regular nursing floor. Started on broad-spectrum antibiotic therapy consult placed to orthopedic surgery seen by Dr. Vazquez who did perform irrigation and debridement of left elbow. Cultures send consult placed to ID ? 04/20/2025; patient cultures so far negative to date 2. Eosinophilia ? 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 Class III obesity with BMI of 52 -complicating care; Weight loss advised 4. Hypothyroidism ? Patient is on levothyroxine home dose continued 5. Diabetes mellitus type II -patient's oral hypoglycemics held. Placed on long acting insulin, Accu-Cheks a.c. and at bedtime and covered with sliding scale insulin 6. Dyslipidemia ? Patient is on fenofibrate 7. Psoriasis ? Patient is on secukinumab q. monthly 8. Allergic rhinitis ? Patient is on montelukast and cetirizine 9. Overactive bladder ? Patient is on mirabegron and oxybutynin 10. Hypertension ? Blood pressure controlled, home medications continued with dose adjustment as needed 11. Depression with anxiety ? Patient is on escitalopram 12. Hypokalemia ? Corrected per protocol repeat labs ordered in a.m. for subsequent eval 13. Hypomagnesemia ? Corrected per protocol repeat labs ordered in a.m. for subsequent management 14. Acute kidney injury ? Patient creatinine on admission was 0.98 creatinine as of this a.m. is 1.76 patient started on IV hydration avoiding the use of nephrotoxic medications 15. DVT prophylaxis ? Lovenox subcu 16. Diarrhea ? Order stool studies to rule out Time spent in the patient's overall evaluation,decision-making process, review of diagnostic data, adjustment of management, discussion with other providers, nursing nursing and ancillary staff involved in patient's care documentation, 38 Minutes Charges/Coding Visit Charges Inpatient E&M: 78005 Subs Hosp L2
[2025-04-20] MEDS: Aspirin E.C. 81 MG Tablet PO (08:30)
[2025-04-20] MEDS: Magnesium Chloride 64 MG Delay Rel.Tablet 128 MG PO ×2 (08:31→20:59)
[2025-04-20] MEDS: Potassium Chloride Oral Tablet 20 MEQ PO ×2 (08:32→16:25)
[2025-04-20] MEDS: Niacin SA 500 MG Tablet 1000 MG PO (08:34)
[2025-04-20] MEDS: Cholecalciferol (VIT D3) 25 MCG TABLET (1,000 UNITS) 50 MCG PO (08:34)
[2025-04-20] MEDS: Psyllium 1 PACKET 0.4 PACKET PO (08:35)
[2025-04-20 09:20] VITALS: BP 144/77; PULSE 78; RESP 18; TEMP 36.2; O2SAT 98
[2025-04-20] MEDS: Ceftriaxone 2 GM in 0.9% Normal Saline (50mL MB+) 50 ML IV (11:19)
[2025-04-20 15:00] VITALS: BP 147/72; PULSE 82; RESP 16; TEMP 37; O2SAT 99
[2025-04-20 20:55] VITALS: BP 149/76; PULSE 80; RESP 16; TEMP 36.9; O2SAT 95
[2025-04-21] VITALS (12 sets, daily range): BP systolic 153–203; BP diastolic 72–95; PULSE 72–89; RESP 16–17; TEMP 36.2–36.9; O2SAT 92–95
[2025-04-21] MEDS: 0.9% Normal Saline (1000mL) 1,000 ML 150 ML IV ×4 (00:41→21:00)
[2025-04-21 07:16] LABS: Anion Gap 16 (5-15); BUN 19 mg/dL (4-19); BUN/Creat Ratio 12.9 RATIO (10-20); Calcium,Total 9.3 mg/dL (7.6-11.0); Carbon Dioxide 14.9 mmol/L (21.0-32.0); Chloride 106 mmol/L (98-108); Estimated Creatinine Clearance 43.55 ml/min (50-250); Glucose 171 mg/dL (70-99); Potassium 3.9 mmol/L (3.3-5.1)
[2025-04-21 07:33] LABS: Hematocrit 32.1 % (37-47); Hemoglobin 11.5 g/dL (12.0-15.0); Immature Granulocytes Count 0.080 X10^3/uL (0.0-0.0); Mean Corp Hgb Conc 35.8 g/dL (32-36); Mean Corpuscular Volume 94.4 fL (81-99); Mean Platelet Vol. 8.8 fl (6.2-12.0); NRBC Flagged by Analyzer 0 % (0-5); POSITIVE DIFFERENTIAL YES; Platelet Count 187 K/mm3 (150-450); RBC Distribution Width CV 13.0 % (11.6-14.6); RBC Distribution Width SD 45.1 fl (35.1-43.9); Red Blood Count 3.40 M/mm3 (4.2-5.4); White Blood Count 13.5 K/mm3 (4.4-11.0)
[2025-04-21 07:40] LABS: Differential Indicated SCAN CRITERIA MET
--- NOTE | 2025-04-21 08:12 | PN.HOSP_ITS ---
Reason for Visit Chief Complaint: Atraumatic left elbow pain and swelling Subjective Subjective Patient stool for C. difficile came back negative. Per patient diarrhea frequency has decreased. Patient blood pressure however remains markedly elevated 203/95 Objective Data Objective Data Vital Signs: Vital Signs Temp Pulse Resp BP Pulse Ox O2 Del Method O2 Flow Rate 98.4 F 87 16 203/95 H 93 Room Air 2 04/21/25 04:00 04/21/25 07:36 04/21/25 04:00 04/21/25 07:36 04/21/25 04:00 04/21/25 04:00 04/19/25 16:32 Oxygen Flow Rate (L/min) 2 Oxygen Delivery Method Room Air Weight: 137.529 kg Body Mass Index (BMI) 52.0 Intake & Output: Intake and Output for Last 24 Hours 04/19/25 04/20/25 04/21/25 23:59 23:59 23:59 Intake Total 2114.75 / 2114.75 4965 / 4965 2250 / 2250 Balance 2114.75 / 2114.75 4965 / 4965 2250 / 2250 Lab / Micro Data 04/21/25 07:20 04/21/25 06:40 Labs: Laboratory Results - last 24 hr 04/20/25 11:19: POC Glucose 172 H 04/20/25 16:28: POC Glucose 185 H 04/20/25 20:57: POC Glucose 211 H 04/21/25 06:15: POC Glucose 171 H 04/21/25 06:40: WBC Cancelled, Corrected WBC Cancelled, RBC Cancelled, Hgb Cancelled, Hct Cancelled, MCV Cancelled, MCH Cancelled, MCHC Cancelled, RDW Std Deviation Cancelled, RDW Coeff of Jeff Cancelled, Plt Count Cancelled, MPV Cancelled, Immature Gran % (Auto) Cancelled, Neut % (Auto) Cancelled, Lymph % (Auto) Cancelled, [place] % (Auto) Cancelled, Eos % (Auto) Cancelled, Baso % (Auto) Cancelled, Absolute Neuts (auto) Cancelled, Absolute Lymphs (auto) Cancelled, Total Counted Cancelled, Neutrophils % (Manual) Cancelled, Band Neutrophils % Cancelled, Lymphocytes % (Manual) Cancelled, Monocytes % (Manual) Cancelled, Eosinophils % (Manual) Cancelled, Basophils % (Manual) Cancelled, Metamyelocytes % Cancelled, Myelocytes % Cancelled, Promyelocytes % Cancelled, Blast Cells % Cancelled, Plasma Cell % (Manual) Cancelled, Other Cells % Cancelled, Nucleated RBC % Cancelled, Nucleated RBCs/100 WBC Cancelled, Differential Comment Cancelled, Diff Path Review Cancelled, Hypersegmented Neuts Cancelled, Atypical Lymphocytes Cancelled, Reactive Lymphocytes Cancelled, Smudge Cells Cancelled, Toxic Granulation Cancelled, Toxic Vacuolation Cancelled, Dohle Bodies Cancelled, [place] Rods Cancelled, Platelet Estimate Cancelled, Plt Morphology Comment Cancelled, RBC Morphology Cancelled 04/21/25 06:40: RBC Morphology Cancelled, Polychromasia Cancelled, Hypochromasia Cancelled, Basophilic Stippling Cancelled, Anisocytosis Cancelled, Microcytosis Cancelled, Macrocytosis Cancelled, Spherocytes Cancelled, Sickle Cells Cancelled, Target Cells Cancelled, Tear Drop Cells Cancelled, Ovalocytes Cancelled, Stomatocytes Cancelled, Thayer-Arthur Bodies Cancelled, [place] Cells Cancelled, Bite Cells Cancelled, Crenated Cell Cancelled, Acanthocytes (Spur) Cancelled, Rouleaux Cancelled, Schistocytes Cancelled, Sodium 136, Potassium 3.9, Chloride 106, Carbon Dioxide 14.9 L, Anion Gap 16 H, BUN 19, Creatinine 1.50 H, Estim Creat Clear Calc 43.55 L, Est GFR (MDRD) Non-Af 36 L, BUN/Creatinine Ratio 12.9, Glucose 171 H, Calcium 9.3 04/21/25 07:20: WBC 13.5 H, RBC 3.40 L, Hgb 11.5 L, Hct 32.1 L, MCV 94.4, MCH 33.8 H, MCHC 35.8, RDW Std Deviation 45.1 H, RDW Coeff of Jeff 13.0, Plt Count 187, MPV 8.8, Immature Gran % (Auto) 0.600, Neut % (Auto) 54.3, Lymph % (Auto) 8.7 L, [place] % (Auto) 7.1, Eos % (Auto) 28.5 H, Baso % (Auto) 0.8, Absolute Neuts (auto) 7.3, Absolute Lymphs (auto) 1.17, Nucleated RBC % 0 Micro: Microbiology 04/20/25 10:30 Stool Enteric Bacteriology - Final 04/17/25 00:28 Blood Culture (Wb) - Right Forearm Blood Culture - Preliminary No growth in 48 hours. 04/17/25 23:48 Blood Culture (Wb) - Right Forearm Blood Culture - Preliminary No growth in 48 hours. 04/20/25 10:30 Stool Clostridioides difficile (PCR) - Final 04/17/25 19:55 Incision/Surgical Site Gram Stain - Final 04/17/25 19:55 Incision/Surgical Site Wound Culture - Preliminary No growth-Final to follow 04/17/25 19:55 Incision/Surgical Site Anaerobic Culture - Preliminary No growth in 48 hours. 04/17/25 19:03 Incision/Surgical Site Gram Stain - Final 04/17/25 19:03 Incision/Surgical Site Wound Culture - Preliminary No growth-Final to follow 04/17/25 19:03 Incision/Surgical Site Anaerobic Culture - Preliminary No growth in 48 hours. 04/17/25 16:48 Fluid - Synovial (joint) Gram Stain - Final 04/17/25 16:48 Fluid - Synovial (joint) Body Fluid Culture - Preliminary No growth-Final to follow 04/17/25 16:48 Fluid - Synovial (joint) Anaerobic Culture - Preliminary No growth in 48 hours. Physical Exam Narrative GENERAL: cooperative HEENT: Atraumatic; normocephalic EYES; Anicteric, Normal Conjunctiva NECK; supple, normal thyroid, RESPIRATORY: Diminished to auscultation CARDIOVASCULAR: Regular S1 S2, GI: soft, normoactive bowel sounds, : No Renal angle tenderness; EXTREMITIES: No edema, no clubbing, MUSCULOSKELETAL: Left elbow in surgical dressing NEURO: Awake; no lateralizing signs. SKIN: No Rash PSYCH; Flat affect Assessment & Plan Assessment/Plan (1) Nontraumatic pain and swelling of elbow: PLAN: Plan Patient is a 79-year-old female who presented [facility] ED on 04/17/2025 with atraumatic left elbow pain with swelling. 1. Septic arthritis involving the left elbow ? Patient was admitted to regular nursing floor. Started on broad-spectrum antibiotic therapy consult placed to orthopedic surgery seen by Dr. Vazquez who did perform irrigation and debridement of left elbow. Cultures send consult placed to ID ? 04/20/2025; patient cultures so far negative to date ? 04/21/2025; cultures remain negative to the 2. Eosinophilia ? 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 Class III obesity with BMI of 52 -complicating care; Weight loss advised 4. Hypothyroidism ? Patient is on levothyroxine home dose continued 5. Diabetes mellitus type II -patient's oral hypoglycemics held. Placed on long acting insulin, Accu-Cheks a.c. and at bedtime and covered with sliding scale insulin 6. Dyslipidemia ? Patient is on fenofibrate 7. Psoriasis ? Patient is on secukinumab q. monthly 8. Allergic rhinitis ? Patient is on montelukast and cetirizine 9. Overactive bladder ? Patient is on mirabegron and oxybutynin 10. Hypertension ? Blood pressure controlled, home medications continued with dose adjustment as needed ? 04/21/2025; patient blood pressure markedly elevated this a.m. with systolic over 200. Adjusted medications. Plan is for patient to be discharged for blood pressure control improved 11. Depression with anxiety ? Patient is on escitalopram 12. Hypokalemia ? Corrected per protocol repeat labs ordered in a.m. for subsequent eval 13. Hypomagnesemia ? Corrected per protocol repeat labs ordered in a.m. for subsequent management 14. Acute kidney injury ? Patient creatinine on admission was 0.98 creatinine as of this a.m. is 1.76 patient started on IV hydration avoiding the use of nephrotoxic medications 15. DVT prophylaxis ? Lovenox subcu 16. Diarrhea ? Order stool studies to rule out Time spent in the patient's overall evaluation,decision-making process, review of diagnostic data, adjustment of management, discussion with other providers, nursing nursing and ancillary staff involved in patient's care documentation, 36 Minutes Charges/Coding Visit Charges Inpatient E&M: 73060 Subs Hosp L2
[2025-04-21] MEDS: Magnesium Chloride 64 MG Delay Rel.Tablet 128 MG PO ×2 (08:48→20:33)
[2025-04-21] MEDS: Potassium Chloride Oral Tablet 20 MEQ PO ×2 (08:48→16:39)
[2025-04-21] MEDS: Cholecalciferol (VIT D3) 25 MCG TABLET (1,000 UNITS) 50 MCG PO (08:49)
[2025-04-21] MEDS: Psyllium 1 PACKET 0.4 PACKET PO (08:50)
[2025-04-21] MEDS: Aspirin E.C. 81 MG Tablet PO (08:51)
[2025-04-21] MEDS: Ceftriaxone 2 GM in 0.9% Normal Saline (50mL MB+) 50 ML IV (08:52)
[2025-04-21] MEDS: Niacin SA 500 MG Tablet 1000 MG PO (08:56)
[2025-04-22] VITALS (8 sets, daily range): BP systolic 155–169; BP diastolic 73–85; PULSE 74–87; RESP 16–19; TEMP 36.4–36.6; O2SAT 95–98
[2025-04-22] MEDS: Niacin SA 500 MG Tablet 1000 MG PO (09:20)
[2025-04-22] MEDS: Magnesium Chloride 64 MG Delay Rel.Tablet 128 MG PO (09:20)
[2025-04-22] MEDS: Cholecalciferol (VIT D3) 25 MCG TABLET (1,000 UNITS) 50 MCG PO (09:21)
[2025-04-22] MEDS: Potassium Chloride Oral Tablet 20 MEQ PO (09:22)
[2025-04-22] MEDS: Aspirin E.C. 81 MG Tablet PO (09:22)
[2025-04-22] MEDS: Ceftriaxone 2 GM in 0.9% Normal Saline (50mL MB+) 50 ML IV (09:23)
[2025-04-22] MEDS: Psyllium 1 PACKET 0.4 PACKET PO (09:24)
[2025-04-22 09:32] LABS: Hematocrit 35.5 % (37-47); Hemoglobin 12.4 g/dL (12.0-15.0); Immature Granulocytes Count 0.090 X10^3/uL (0.0-0.0); Mean Corp Hgb Conc 34.9 g/dL (32-36); Mean Corpuscular Volume 95.4 fL (81-99); Mean Platelet Vol. 8.8 fl (6.2-12.0); NRBC Flagged by Analyzer 0 % (0-5); POSITIVE DIFFERENTIAL YES; Platelet Count 230 K/mm3 (150-450); RBC Distribution Width CV 13.0 % (11.6-14.6); RBC Distribution Width SD 45.1 fl (35.1-43.9); Red Blood Count 3.72 M/mm3 (4.2-5.4); White Blood Count 11.1 K/mm3 (4.4-11.0)
[2025-04-22 09:33] LABS: Differential Indicated SCAN CRITERIA MET
[2025-04-22 10:09] LABS: Anion Gap 15 (5-15); BUN 20 mg/dL (4-19); BUN/Creat Ratio 13.8 RATIO (10-20); Calcium,Total 10.0 mg/dL (7.6-11.0); Carbon Dioxide 19.2 mmol/L (21.0-32.0); Chloride 105 mmol/L (98-108); Estimated Creatinine Clearance 46.00 ml/min (50-250); Glucose 147 mg/dL (70-99); Potassium 3.6 mmol/L (3.3-5.1)
--- NOTE | 2025-04-22 11:21 | PCM.PN.ID ---
Physical Exam Narrative Feeling better, LUE less sore, no fever, no n/v/d. Const alert and no apparent distress General Appearance: cooperative Resp normal air movement and clear to auscultation bilaterally Cardio regular rate and regular rhythm GI soft to palpation, non-tender and non-distended Extremity General Extremity: edema Skin no rashes or lesions noted ID ID: Route of nutrition/ use of supplements: [] Nutritional Intake: [] IV Site: [] Adam Catheter: [] Assessment & Plan Assessment/Plan (1) Septic arthritis of wrist, left: (2) Septic arthritis of elbow, left: PLAN: Surg cx ngtd. Taken to OR 04/17/[address] Vazquez for I&D. On ceftriaxone. Path review of fluid shows non-urate crystals. May not be infectious in origin. Will change to one week po doxy 100mg bid while final cxs pending. Ok for picc removal. Will follow
--- NOTE | 2025-04-22 15:24 | PCM.DC.SUM ---
Providers Date of Admission: 04/17/25 Date of Discharge: 04/22/25 Primary Care Physician: Dr. Laura Ly, Consultations 04/17/25 20:43 Consult: Infectious Disease Routine Consulting Provider: Quincy Momin Reason for Consult: suspected left elbow septic arthritis EMERGENT Consult: No MD Notified: Yes Date Notified: 04/18/25 Time Notified: 07:43 Method of Notification: Text Reason For Visit: LEFT ELBOW SEPTIC ARTHRITIS Diagnosis Discharge Diagnosis (1) Septic arthritis of wrist, left: Status: Acute Code(s): M00.9 - Pyogenic arthritis, unspecified (2) Septic arthritis of elbow, left: Status: Acute Code(s): M00.9 - Pyogenic arthritis, unspecified Medications at Discharge Home Medications aspirin 81 mg tablet,delayed release (Adult Aspirin Regimen) 81 mg PO DAILY Blood thinner 10/15/23 carvedilol 25 mg tablet 25 mg PO Q12H Blood pres 10/15/23 cetirizine 10 mg tablet 10 mg PO DAILY Allergies 10/15/23 cholestyramine-aspartame 4 gram oral powder for susp in a packet (Cholestyramine Light) 1 ea PO DAILY cholesterol 10/15/23 escitalopram oxalate 20 mg tablet 20 mg PO DAILY Anxiety 10/15/23 levothyroxine 50 mcg tablet 50 mcg PO DAILY thyroid 10/15/23 niacin 1,000 mg tablet,extended release 24 hr 1,000 mg PO DAILY cholesterol 10/15/23 albuterol sulfate 2.5 mg/3 mL (0.083 %) solution for nebulization 2.5 mg inhalation Q4H PRN shortness of breath or wheezing 04/17/25 cholecalciferol (vitamin D3) 25 mcg (1,000 unit) capsule (Vitamin D3) 50 mcg PO DAILY supplement 04/17/25 coenzyme Q10 10 mg capsule (Co Q-10) 10 mg PO DAILY cholesterol 04/17/25 jessie (Zingiber officinalis) 500 mg capsule 500 mg PO DAILY PRN indigestion 04/17/25 meclizine 12.5 mg tablet 12.5 mg PO TID PRN dizziness 04/17/25 psyllium husk 0.4 gram capsule (Daily Fiber) 0.4 g PO DAILY PRN fiber 04/17/25 secukinumab 150 mg/mL subcutaneous syringe (Cosentyx) 150 mg subcut .every 4 weeks psoriasis 04/17/25 doxycycline hyclate 100 mg capsule 100 mg PO BID #14 caps 04/19/25 hydralazine 50 mg tablet 50 mg PO TID #90 tabs 04/22/25 losartan 100 mg tablet 100 mg PO DAILY #30 tabs 04/22/25 oxycodone 5 mg tablet 5 mg PO Q4H PRN PRN Pain Score 6-10 3 days #18 tabs 04/22/25 Hospital Course Operations None Procedures None Summary of Care Provided Minutes Spent on Discharge: 45 Hospital Course: Patient is a 79 y/o female with a PMH as outlined who was admitted via the ED on 04/17/2025 with a complaints of atraumatic left elbow pain and swelling. She had noticed worsening left upper arm pain and swelling for some days prior to admission. IN the ED, she had fever, chills, was tachycardic and mildly hypotensive. Wbc was elevated at 16.8. ESR and CRP were elevated and elbow xray showed soft tissue swelling with degenerative changes of the joint but no specific joint fluid noted. She was reviewed by orthopedics in the ED due to concern for septic joint. The joint was aaspirated and turbulent fluid was rmoved. There was high concern for septic joint and so she was emergently taken to the OR for I&D by orthopedics. She had irrigation and debridement of left elbow and left wrist. She was placed on broad spectrum antibiotics. ID was consulted. Pain improved and she felt better. Surgical cultures were negative. There were non urate crystals. Shw as switched to PO doxycycline per ID. PICC was removed. She remained stable and was discharged home on 04/22/2025. She was discharged on PO oxycodone/ acetaminophen 5/325mg every 4 hours as needed for a total of 18 tabs, for 3 days. OARRS score was checked and no red flags were seen. Patient seen and examined prior to discharge. She had no complaints and felt much better. There was concern that her blood pressure was running high but blood pressure meds were not adjusted as the BP had been running on th lower side a few days before. She is to follwo up with her PCP for adjustment of meds as needed. Labs and vitals reviewed. Home meds reviewed and reconciled. Physical Exam Const alert, oriented x3 and no apparent distress Constitutional Narrative: class III obesity General Appearance: cooperative and comfortable Orientation / Consciousness: awake HEENT normocephalic, head/scalp atraumatic, hearing grossly normal bilaterally, moist oral mucous membranes and oropharynx normal Mouth: oral and palatal mucosa normal Eyes PERRL, EOMs intact bilaterally and conjunctivae normal Neck no lymphadenopathy and supple Resp normal respiratory effort Cardio regular rate, regular rhythm, S1 normal heart sound, S2 normal heart sound and no murmurs GI normal to inspection, nondistended, normoactive bowel sounds, soft to palpation and non-tender Extremity Extremity Narrative: intact stitches over left elbow and wrist. Minimal erythema and no tenderness. Skin Skin Narrative: as under extremities Neuro oriented x3, CN's II-XII intact bilaterally, moves all extremities and no focal motor deficits Sensorium / Orientation: awake and alert Motor Exam: strength 5/5 throughout Psych affect normal Weight / BMI Weight Weight: 303 lb 3.192 oz Body Mass Index (BMI) 52.0 ABG / Lab / Microbiology Data 04/22/25 09:13 04/22/25 09:13 Laboratory: Laboratory Results - last 24 hr 04/21/25 21:02: POC Glucose 185 H 04/22/25 06:31: POC Glucose 150 H 04/22/25 09:13: WBC 11.1 H, RBC 3.72 L, Hgb 12.4, Hct 35.5 L, MCV 95.4, MCH 33.3 H, MCHC 34.9, RDW Std Deviation 45.1 H, RDW Coeff of Jeff 13.0, Plt Count 230, MPV 8.8, Immature Gran % (Auto) 0.800, Neut % (Auto) 44.9 L, Lymph % (Auto) 12.3 L, [place] % (Auto) 7.7, Eos % (Auto) 33.5 H, Baso % (Auto) 0.8, Absolute Neuts (auto) 5.0, Absolute Lymphs (auto) 1.36, Nucleated RBC % 0, Differential Comment , Sodium 139, Potassium 3.6, Chloride 105, Carbon Dioxide 19.2 L, Anion Gap 15, BUN 20 H, Creatinine 1.42 H, Estim Creat Clear Calc 46.00 L, Est GFR (MDRD) Non-Af 38 L, BUN/Creatinine Ratio 13.8, Glucose 147 H, Calcium 10.0 04/22/25 12:22: POC Glucose 146 H Microbiology: Microbiology 04/17/25 19:55 Incision/Surgical Site Gram Stain - Final 04/17/25 19:55 Incision/Surgical Site Wound Culture - Final No growth aerobically. 04/17/25 19:55 Incision/Surgical Site Anaerobic Culture - Preliminary No growth in 48 hours. 04/17/25 19:03 Incision/Surgical Site Gram Stain - Final 04/17/25 19:03 Incision/Surgical Site Wound Culture - Final No growth aerobically. 04/17/25 19:03 Incision/Surgical Site Anaerobic Culture - Preliminary No growth in 48 hours. 04/20/25 10:30 Stool Enteric Bacteriology - Final 04/17/25 00:28 Blood Culture (Wb) - Right Forearm Blood Culture - Preliminary No growth in 48 hours. 04/17/25 23:48 Blood Culture (Wb) - Right Forearm Blood Culture - Preliminary No growth in 48 hours. 04/20/25 10:30 Stool Clostridioides difficile (PCR) - Final 04/17/25 16:48 Fluid - Synovial (joint) Gram Stain - Final 04/17/25 16:48 Fluid - Synovial (joint) Body Fluid Culture - Preliminary No growth-Final to follow 04/17/25 16:48 Fluid - Synovial (joint) Anaerobic Culture - Preliminary No growth in 48 hours. D/C Instructions Discharge Activity: Return to Normal Activity Weight Bearing Status: Weight bearing as tolerated Call your doctor if you observe: Fever of 101 or Higher, Shortness of breath, Dizziness, Swelling in the ankles and Chest pain DC O2, CPAP, BIPAP Needs Home O2 Discharge instructions: No Meaningful Use Info Meaningful Use Meaningful Use Diagnoses (Choose all that apply): None applicable Discharge Plan Admission Admit Date/Time: 04/17/25 17:22 Primary Reason for Your Visit: left elbow septic arthritis Attending Provider: Evita Antonio Primary Care Provider: Laura Ly Consulting Providers: Tirso Vazquez; Quincy Momin; Malachi Batres; Evita Antonio Instructions Patient Instructions: Septic Arthritis Ch Discharge Orders/Prescriptions Prescriptions: New doxycycline hyclate 100 mg capsule 100 mg PO BID Qty: 14 0RF hydralazine 50 mg Tablet 50 mg PO TID Qty: 90 2RF oxycodone 5 mg Tablet 5 mg PO Q4H PRN PRN (Reason: Pain Score 6-10) 3 Days Qty: 18 0RF losartan 100 mg tablet 100 mg PO DAILY Qty: 30 2RF Continued carvedilol 25 mg tablet 25 mg PO Q12H niacin 1,000 mg tablet extended release 24 hr 1,000 mg PO DAILY cetirizine 10 mg tablet 10 mg PO DAILY Patient Comments: TAKE ONE TABLET BY MOUTH EVERY DAY IN THE MORNING levothyroxine 50 mcg tablet 50 mcg PO DAILY escitalopram oxalate 20 mg tablet 20 mg PO DAILY Cholestyramine Light 4 gram powder in packet 1 ea PO DAILY Patient Comments: DISSOLVE 1 PACKET IN 2 TO 6 OUNCES OF WATER OR NONCARBONATED BEVERAGE TWO TIMES A DAY BEFORE MEALS AND DRINK Rx Instructions: orally daily; aspirin [Adult Aspirin Regimen] 81 mg tablet,delayed release (DR/EC) 81 mg PO DAILY cholecalciferol (vitamin D3) [Vitamin D3] 25 mcg (1,000 unit) capsule 50 mcg PO DAILY psyllium husk [Daily Fiber] 0.4 gram capsule 0.4 g PO DAILY PRN (Reason: fiber) Cosentyx 150 mg/mL syringe 150 mg subcut .every 4 weeks coenzyme Q10 [Co Q-10] 10 mg capsule 10 mg PO DAILY jessie (Zingiber officinalis) 500 mg capsule 500 mg PO DAILY PRN (Reason: indigestion) meclizine 12.5 mg tablet 12.5 mg PO TID PRN (Reason: dizziness) albuterol sulfate 2.5 mg /3 mL (0.083 %) solution for nebulization 2.5 mg inhalation Q4H PRN (Reason: shortness of breath or wheezing) Referrals / Follow Up: Laura Ly DO [Primary Care Provider] - Within 1 Week Tirso Vazquez DO [Med Staff - Active Staff] - Within 2 Weeks Disposition Disposition (needs filled in before D/C Order can be placed): Home, Self Care Charges/Coding Visit Charges Inpatient E&M: 24745 Disch Hosp >30min
== END 2025-04-22 17:42 | disposition home or self-care (01) | DRG 507 ==
LOC: ED 17:39 → SDC 18:14 → ED 21:18 → MS3 21:19
PROVIDERS: Internal Medicine; Student in an Organized Health Care Education/Training Program; Admitting Provider Hospitalist; Emergency Provider Emergency Medicine; PCP Internal Medicine; Visit Provider Student in an Organized Health Care Education/Training Program
PROC: 0RC Upper Joints, Extirpation (ICD-10-PCS; CPT 64721; principal; 2025-04-17 18:30)
DX: M00.9 Pyogenic arthritis, unspecified (principal); Z68.43 Body mass index [BMI] 50.0-59.9, adult; N17.9 Acute kidney failure, unspecified; D72.10 Eosinophilia, unspecified; E11.22 Type 2 diabetes mellitus with diabetic chronic kidney disease; N18.9 Chronic kidney disease, unspecified; I12.9 Hypertensive chronic kidney disease with stage 1 through stage 4 chronic kidney disease, or unspecified chronic kidney disease; E03.9 Hypothyroidism, unspecified; F32.A Depression, unspecified; E78.5 Hyperlipidemia, unspecified; L40.9 Psoriasis, unspecified; J30.9 Allergic rhinitis, unspecified; E83.42 Hypomagnesemia; E87.6 Hypokalemia; F41.9 Anxiety disorder, unspecified; R19.7 Diarrhea, unspecified; N32.81 Overactive bladder; E66.813 Obesity, class 3; Z79.84 Long term (current) use of oral hypoglycemic drugs; Z79.890 Hormone replacement therapy; Z79.891 Long term (current) use of opiate analgesic; Z87.891 Personal history of nicotine dependence
CPT/HCPCS: 36415; 36569; 73080; 80048; 80076; 80202; 82962; 83036; 83735; 84100; 84550; 85025; 85652; 86140; 87040; 87070; 87075; 87205; 87493; 87506; 88304; 88311; 89050; 89051; 89060; 93005; 94668; 97110; 97116; 97161; 97166; 97530; 97535; 97802; 99284; A4216; J0696; J2405

== ENCOUNTER → 2025-06-25 | Outpatient (CLI) | payer MEDICARE, SELFPAY ==
[2025-06-25 10:45] LABS: Hematocrit 30.8 % (37-47); Hemoglobin 10.8 g/dL (12.0-15.0); Immature Granulocytes Count 0.030 X10^3/uL (0.0-0.0); Mean Corp Hgb Conc 35.1 g/dL (32-36); Mean Corpuscular Volume 97.5 fL (81-99); Mean Platelet Vol. 9.1 fl (6.2-12.0); NRBC Flagged by Analyzer 0 % (0-5); POSITIVE DIFFERENTIAL YES; Platelet Count 162 K/mm3 (150-450); RBC Distribution Width CV 12.9 % (11.6-14.6); RBC Distribution Width SD 46.5 fl (35.1-43.9); Red Blood Count 3.16 M/mm3 (4.2-5.4); White Blood Count 11.1 K/mm3 (4.4-11.0)
[2025-06-25 11:31] LABS: Anion Gap 16 (5-15); BUN 22 mg/dL (4-19); BUN/Creat Ratio 17.7 RATIO (10-20); Calcium,Total 9.9 mg/dL (7.6-11.0); Carbon Dioxide 23.6 mmol/L (21.0-32.0); Chloride 102 mmol/L (98-108); Glucose 159 mg/dL (70-99); Potassium 4.2 mmol/L (3.3-5.1); Uric Acid 8.2 mg/dL (2.6-6.0)
[2025-06-26 03:07] LABS: CRP, High Sensitivity 47.68 mg/L (0.00-3.00)
== END | disposition home or self-care (01) ==
LOC: LAB 09:52
PROVIDERS: PCP Internal Medicine; Referring Provider Physician Assistant Surgical; Visit Provider Physician Assistant Surgical
DX: M13.821 Other specified arthritis, right elbow (principal); E11.9 Type 2 diabetes mellitus without complications; M13.831 Other specified arthritis, right wrist
CPT/HCPCS: 36415; 80048; 83036; 84550; 85025; 85652; 86141